=== PATIENT | female | born 1980 | race Two or more races ===

== ENCOUNTER 2019-08-23 06:44 | Emergency (ER) | payer OTHER, MEDICAID, SELFPAY ==
[2019-08-23] VITALS (8 sets, daily range): BP systolic 118–178; BP diastolic 75–103; PULSE 83–107; RESP 14–22; TEMP 36.4; O2SAT 98–100
--- NOTE | ~2019-08-23 | XR_ITS ---
EXAMINATION: XR chest 2V DATE: 08/23/2019 07:46 INDICATION: Chest pain. Shortness of breath. TECHNIQUE: Frontal and lateral views of the chest were obtained. COMPARISON: Chest 2 views 08/20/2017, CT abdomen and pelvis 02/02/2016 FINDINGS: There is no pneumonia, pleural effusion, or pneumothorax. The heart size is normal. IMPRESSION: 1. No acute cardiopulmonary disease. Reviewed, dictated and finalized at location A. YPOP MACHINE OPERATOR
--- NOTE | 2019-08-23 07:04 | ECG_ITS ---
Measurements Intervals [place] Rate: 88 P: 73 IN: 170 QRS: 48 QRSD: 91 T: 37 QT: 352 QTc: 427 Interpretive Statements SINUS RHYTHM NORMAL ECG Electronically Signed On 08-23-2019 11:14:07 INDUSTRIAL TECHNOLOGIST by Jl HAAS
--- NOTE | 2019-08-23 07:09 | PC.NURSE ---
Took report by STEVE Sierra, assumed pt care at this time.
--- NOTE | 2019-08-23 07:29 | ED.CHESTPAIN ---
HPI - Chest Pain General Chief Complaint: Chest Pain Stated Complaint: chest pressure/high bp Time Seen by Provider: 08/23/19 06:55 History of Present Illness HPI narrative: Patient is a 38-year-old female who presents to the emergency department with complaint of chest pain. Patient states she awoke at approximately 530 this morning. Patient noted pounding frontal headache, heart racing, and tightness in her chest. Patient took her blood pressure at home and it was 185/110. Patient has been off of her antihypertensive for approximately 1 week. Patient did take her blood pressure medication this morning due to her symptoms and elevated blood pressure. Patient denies any fever, chills, or sweats. She reports chronic nasal and sinus congestion. She does report nausea over the last couple of days but denies any vomiting or diarrhea. Patient denies any cough. Patient's last normal menstrual period was 07/12/2019. Patient reports urinary frequency but denies any dysuria. Patient states she took a test at home that was negative. complaint: chest pain Onset (ago): hour(s) Timing of current episode: constant and still present Onset: during rest Pain location: substernal Quality: tightness Associated symptoms: nausea and palpitations Related Data Home Medications Medication Instructions Recorded Confirmed cetirizine [Zyrtec] 10 mg PO DAILY 06/05/19 06/16/19 cholecalciferol (vitamin D3) 1,000 unit PO DAILY 06/05/19 06/16/19 [Vitamin D3] lamotrigine 150 mg PO BID 06/05/19 06/16/19 Allergies Allergy/AdvReac Type Severity Reaction Status Date / Time iodine AdvReac Intermediate sneezing Verified 08/23/19 07:18 Contrast Media AdvReac Mild SNEEZING Uncoded 08/23/19 07:18 Review of Systems Review of Systems: All systems reviewed & are unremarkable except as noted in HPI and below Constitutional: Constitutional: Denies chills and Denies fever(s) Cardiovascular: Cardiovascular: Reports chest pain and Reports rapid heart rate Respiratory: Respiratory: Denies cough Gastrointestinal: Gastrointestinal: Denies diarrhea, Reports nausea and Denies vomiting Genitourinary: Genitourinary: Reports abnormal menses, Reports nocturia and Denies dysuria [facility] Past Medical History Medical History (Updated 08/23/19 @ 11:10 by Lynda Silva MD) Arthritis Chronic back pain Chronic headaches Depression Diverticulitis Diverticulosis Gallbladder disease GERD (gastroesophageal reflux disease) Hemorrhoids Hypertension Ovarian cyst Seizures Sleep apnea Uterine fibroid Surgical History Surgical History (Updated 06/05/19 @ 10:22 by CHASITY Devine) H/O dilation and curettage H/O vein stripping History of appendectomy Hx of cholecystectomy Previous section Social History Social History (Updated 06/05/19 @ 10:22 by CHASITY Devine) Second hand tobacco smoke exposure: Yes Gender identity (if verbalized by the patient): Female Exam Const: General: cooperative, no acute distress and alert Nutritional Appearance: obese Orientation/consciousness: patient oriented x3 Limitations: no limitations HENMT: Mouth: Yes lip normal and Yes moist mucous membranes Resp: Effort & Inspection: normal respiratory effort Auscultation: clear to auscultation bilaterally Cardio: Rate: tachycardic Rhythm: regular rhythm GI: GI Palp: Yes Soft to palpation and No Tenderness to palpation present (GI) Auscultation: normal bowel sounds Skin: General skin exam: normal color Neuro: General: patient oriented x3 Cognition (Neuro): normal cognition Speech: normal speech Extrem: General: normal to inspection, full ROM and no clubbing, cyanosis or edema Psych: Mental Status: mental status grossly normal Affect: Anxious affect present Attitude: cooperative Course Course Emergency Course: Patient with low risk heart score, negative troponin x2, and unremarkable EKG. Patient feeling better after [employer]
[2019-08-23 07:42] LABS: Basophils Absolute Auto 0.1 K/mm3 (0.0-0.1); Basophils Percent Auto 0.7 % (0.2-1.2); Eosinophils Absolute Auto 0.3 K/mm3 (0-0.3); Eosinophils Percent Auto 4.6 % (0-4.4); Hematocrit 40.3 % (37.0-47.0); Hemoglobin 13.4 g/dL (12.0-15.0); Immature Granulocyte Absolute 0.02 K/mm3 (0.00-0.031); Immature Granulocyte Percent A 0.3 % (0-0.5); Lymphocytes Absolute Auto 1.88 K/mm3 (0.9-3.2); Mean Corpuscular HGB Conc 33.3 g/dl (32-36); Mean Corpuscular Hemoglobin 29.6 pg (26-34); Mean Corpuscular Volume 89.2 fl (80-100); Mean Platelet Volume 9.3 fl (7.4-10.4); Monocytes Absolute Auto 0.5 K/mm3 (0.1-0.6); Monocytes Percent Auto 6.5 % (2.6-8.5); Neutrophils Absolute Auto 4.2 K/mm3 (1.3-6.7); Neutrophils Percent Auto 60.9 % (45.5-73.1); Platelet Count Result 311 k/mm3 (150-375); Red Blood Count 4.52 M/mm3 (4.2-5.4); Red Cell Distribution Width 12.5 % (11.5-14.5)
[2019-08-23] MEDS: LORAZEPAM INJ 2 MG/ML VIAL 1 MG IV PUSH (07:44)
[2019-08-23 07:53] LABS: Alanine Aminotransferase 28 U/L (4-35); Albumin Level 4.6 g/dL (3.5-5.1); Alkaline Phosphatase 134 U/L (38-126); Aspartate Amino Transferase 31 U/L (14-36); Bilirubin,Total 0.5 mg/dL (0.2-1.3); Blood Urea Nitrogen 10 mg/dL (7-17); Calcium 9.4 mg/dL (8.4-10.2); Carbon Dioxide 30 mmol/L (22-30); Chloride 96 mmol/L (98-107); Estimated Glomerular Filt Rate > 60; Glucose 102 mg/dL (65-105); Sodium 136 mmol/L (137-145)
[2019-08-23 07:57] LABS: D Dimer 0.29 ug/mL (<0.48)
[2019-08-23 08:04] LABS: Troponin I < 0.012 ng/mL (0.000-0.034)
[2019-08-23 08:08] LABS: Magnesium 1.9 mg/dL (1.6-2.3)
--- NOTE | 2019-08-23 09:43 | PC.NURSE ---
Pt states that her head is begining to hurt, ERP Suzieacher informed, states that she will place order for pain medication, awaiting order. RN at bedside updated pt, provided pillow and blanket.
[2019-08-23 10:38] LABS: Add Urine Microscopic? YES; Appearance Urine Cloudy (Clear); Bacteria Urine Trace /hpf; Bilirubin Urine Negative (Negative); Blood Urine Negative (Negative); Color Urine Yellow (Yellow); Glucose Urine UA Negative (Negative); Ketones Urine Negative (Negative); Leukocyte Esterase Ur Trace LEU/UL (Negative); Mucus Urine Rare /lpf; Nitrate Urine Negative (Negative); Protein Urine Negative (Negative); RBC Urine 0-2 /hpf (0-2); Specific Grav Ur 1.017 (1.001-1.035); Squamous Epithelial Cell Urine Many /hpf (Few); Urobilinogen Urine Negative mg/dL (<2.0); WBC Urine 0-3 /hpf
[2019-08-23] MEDS: KETOROLAC 30 MG/ML VIAL (*BKC) IV PUSH (10:50)
[2019-08-23 10:56] LABS: Troponin I < 0.012 ng/mL (0.000-0.034)
== END 2019-08-23 11:18 | disposition home or self-care (01) ==
PROVIDERS: Emergency Provider Emergency Medicine; PCP Emergency Medicine
DX: R07.9 Chest pain, unspecified (principal); M19.90 Unspecified osteoarthritis, unspecified site; F32.9 Major depressive disorder, single episode, unspecified; K57.90 Diverticulosis of intestine, part unspecified, without perforation or abscess without bleeding; K21.9 Gastro-esophageal reflux disease without esophagitis; I10 Essential (primary) hypertension; G40.909 Epilepsy, unspecified, not intractable, without status epilepticus; G47.30 Sleep apnea, unspecified
CPT/HCPCS: 36415; 71046; 80053; 81001; 81025; 83735; 84443; 84484; 85025; 85380; 87804; 93005; 96374; 96375; 99284; J1885; J2060

== ENCOUNTER 2019-12-09 09:40 | Emergency (ER) | payer OTHER, MEDICAID, SELFPAY ==
--- NOTE | ~2019-12-09 | US_ITS ---
US pelvic complete w TV DATE: 12/09/2019 11:02 INDICATION: Pelvic severe pain for 4 days TECHNIQUE: Real-time imaging via transabdominal and transvaginal approaches COMPARISON: 02/26/2019 obstetrical ultrasound FINDINGS: The uterus measures approximately 8.5 cm height, 4.5 cm anteroposterior dimension. The cent ral endometrial echo complex measures up to approximately 8 mm anteroposterior dimension. Small uteri ne cervical nabothian cysts are noted, measuring up to 3 mm. The right ovary measures 2.4 x 2.7 x 1.6 cm, with vascular flow demonstrated on Doppler and color barney w imaging. The left ovary is not visualized. No pelvic mass or abnormal pelvic fluid collection is evident. IMPRESSION: Left ovary is not visualized No pelvic mass or abnormal pelvic fluid collection is evident Reviewed, dictated and finalized at Location A. Reviewed, dictated and finalized at location A.
--- NOTE | ~2019-12-09 | CT_ITS ---
EXAMINATION: CT abdomen pelvis wo con DATE: 12/09/2019 13:20 INDICATION: Lower abdominal and pelvic pain TECHNIQUE: Computed tomography (CT) of the abdomen and pelvis was performed without intravenous contr ast. Automated exposure control and iterative reconstruction technique were employed. Exam dose: 107 0.18 mGy-cm total exam DLP. COMPARISON: 02/02/2016 CT abdomen pelvis FINDINGS: The lung bases are clear. Normal heart size. No pericardial or pleural effusion. Status post cholecystectomy. No hepatic, splenic, pancreatic, and adrenal or renal space-occupying ma ss lesion is evident on this limited noncontrast examination. Normal caliber of the abdominal aorta. No intraperitoneal or retroperitoneal or pelvic mass lesion or adenopathy or ascites. The urinary bladder is unremarkable. Uterus and adnexal areas are unremarkable. There are numerous diverticula of the sigmoid and descending colon and to a lesser extent the right c olon, primarily in the hepatic flexure area. No bowel obstruction is evident. However, there is peric olic stranding in the proximal sigmoid area and mild pericholecystic fluid collection, consistent wit h sigmoid diverticulitis. Included skeletal structures are unremarkable. IMPRESSION: Sigmoid: Diverticulitis; no abscess or intraperitoneal free air Status post cholecystectomy Reviewed, dictated and finalized at Location [facility]. Reviewed, dictated and finalized at location A.
[2019-12-09 09:42] VITALS: BP 159/69; PULSE 85; RESP 18; TEMP 36.6; O2SAT 100
[2019-12-09 10:19] LABS: Add Urine Microscopic? YES; Appearance Urine Clear (Clear); Bilirubin Urine Negative (Negative); Blood Urine Negative (Negative); Color Urine Yellow (Yellow); Glucose Urine UA Negative (Negative); Ketones Urine Negative (Negative); Leukocyte Esterase Ur Negative LEU/UL (Negative); Mucus Urine Rare /lpf; Nitrate Urine Negative (Negative); Protein Urine Negative (Negative); RBC Urine 0-2 /hpf (0-2); Specific Grav Ur 1.023 (1.001-1.035); Squamous Epithelial Cell Urine Few /hpf (Few); Urobilinogen Urine Negative mg/dL (<2.0); WBC Urine 0-3 /hpf
--- NOTE | 2019-12-09 10:26 | ED.GENADULT ---
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 Patient reports constant pelvic pain that intermittently worsens. She describes her pain has cramping like a contraction. She has been taking tylenol for her pain without relief. She reports pressure when she urinates but she denies burning or dysuria. She denies abnormal vaginal discharge or bleeding. Her current pain is rated 7/10. complaint: pelvic pain Onset (ago): day(s) (4) Location: pelvis Radiation: non-radiation Quality: other (cramping) Pain Consistency: intermittent Exacerbating factors: movement Related Data Home Medications Medication Instructions Recorded Confirmed escitalopram oxalate 10 mg PO 12/09/19 irbesartan 150 mg PO 12/09/19 lamotrigine 150 mg PO 12/09/19 Allergies Allergy/AdvReac Type Severity Reaction Status Date / Time iodine AdvReac Intermediate sneezing Verified 12/09/19 09:45 Contrast Media AdvReac Mild SNEEZING Uncoded 12/09/19 09:45 Review of Systems Review of Systems: All systems reviewed & are unremarkable except as noted in HPI and below Constitutional: Constitutional: Denies chills and Denies fever(s) Gastrointestinal: Gastrointestinal: Reports abdominal pain, Denies diarrhea, Reports nausea and Denies vomiting Genitourinary: Genitourinary: Denies abnormal vaginal bleeding, Denies hematuria, Denies nocturia, Denies dysuria, Reports pelvic pain, Denies flank pain, Denies urinary incontinence and Denies vaginal discharge Musculoskeletal: Musculoskeletal: Denies back pain [facility] Past Medical History Medical History (Updated 12/09/19 @ 13:47 by Marcia Collins MD) Arthritis Chronic back pain Chronic headaches Depression Diverticulitis Diverticulosis Gallbladder disease GERD (gastroesophageal reflux disease) Hemorrhoids Hypertension Ovarian cyst Seizures Sleep apnea Uterine fibroid Surgical History Surgical History (Updated 06/05/19 @ 10:22 by CHASITY Devine) H/O dilation and curettage H/O vein stripping History of appendectomy Hx of cholecystectomy Previous section Social History Social History (Updated 06/05/19 @ 10:22 by CHASITY Devine) Second hand tobacco smoke exposure: Yes Gender identity (if verbalized by the patient): Female Exam Narrative: Exam Narrative: GENERAL: Well-appearing, well-nourished, and in no acute distress. obese HEAD: Normocephalic, atraumatic EYES: PERRLA and EOMI, conjunctiva clear without discharge THROAT:Mucous membranes moist, Oropharynx normal without erythema, exudate, peritonsillar swelling or fluctuance NECK: Supple, without lymphadenopathy or mass RESPIRATORY: No respiratory distress, Airway patent, Respirations non-labored, Clear to auscultation without rales, rhonchi or wheeze HEART: Regular rate and rhythm. No murmur heard. Normal peripheral pulses. ABDOMEN: Soft, suprapubic pain, nondistended, normal active bowel sounds. No masses. No rebound . There is voluntary guarding to suprapubic EXTREMITIES: No edema, normal strength with full range of motion. SKIN: Warm, dry, normal color without rash NEURO: Alert and oriented x3. CN 2-12 grossly intact. No focal deficits. PSYCH: Normal mood and affect. : Speculum Exam - Cervix: normal appearance of the cervix, Cervical os closed and nontender Course Reevaluation(s) Reevaluation #1: Patient states her pain is improved. I Discussed her pain is due to diverticulitis. She will be discharged with antibiotics and she will follow up with PCP Date: 12/09/19 Time: 13:45 Vital Signs Vital signs: Vital Signs Temperature 97.9 F 12/09/19 09:42 Pulse Rate 85 12/09/19 09:42 Respiratory Rate 18 12/09/19 09:42 Blood P
[2019-12-09] MEDS: KETOROLAC 30 MG/ML VIAL (*BKC) IV PUSH (10:30)
[2019-12-09 10:46] LABS: Basophils Absolute Auto 0.1 K/mm3 (0.0-0.1); Basophils Percent Auto 0.5 % (0.2-1.2); Eosinophils Absolute Auto 0.3 K/mm3 (0-0.3); Eosinophils Percent Auto 2.7 % (0-4.4); Hemoglobin 12.9 g/dL (12.0-15.0); Immature Granulocyte Absolute 0.01 K/mm3 (0.00-0.031); Immature Granulocyte Percent A 0.1 % (0-0.5); Lymphocytes Absolute Auto 1.63 K/mm3 (0.9-3.2); Lymphocytes Percent Auto 16.4 % (18.3-44.2); Mean Corpuscular HGB Conc 33.9 g/dl (32-36); Mean Corpuscular Hemoglobin 30.7 pg (26-34); Mean Corpuscular Volume 90.5 fl (80-100); Mean Platelet Volume 9.5 fl (7.4-10.4); Monocytes Absolute Auto 0.5 K/mm3 (0.1-0.6); Monocytes Percent Auto 5.2 % (2.6-8.5); Neutrophils Absolute Auto 7.5 K/mm3 (1.3-6.7); Neutrophils Percent Auto 75.1 % (45.5-73.1); Platelet Count Result 295 k/mm3 (150-375); Red Cell Distribution Width 12.4 % (11.5-14.5)
[2019-12-09 11:39] LABS: Alanine Aminotransferase 20 U/L (4-35); Albumin Level 4.6 g/dL (3.5-5.1); Alkaline Phosphatase 125 U/L (38-126); Aspartate Amino Transferase 27 U/L (14-36); Bilirubin,Total 0.5 mg/dL (0.2-1.3); Blood Urea Nitrogen 9 mg/dL (7-17); Calcium 9.3 mg/dL (8.4-10.2); Carbon Dioxide 29 mmol/L (22-30); Estimated CRCL calculation 136 ml/min; Estimated Glomerular Filt Rate > 60; Glucose 110 mg/dL (65-105); Potassium 4.3 mmol/L (3.4-5.0); Sodium 138 mmol/L (137-145)
[2019-12-09 12:40] LABS: Chloride 102 mmol/L (98-107)
[2019-12-09 12:59] VITALS: BP 115/69; PULSE 84; RESP 16; TEMP 37.1; O2SAT 100
--- NOTE | 2019-12-09 13:13 | PC.NURSE ---
Patient to CT at this time.
[2019-12-09 14:05] VITALS: BP 125/82; PULSE 90; RESP 16; O2SAT 99
== END 2019-12-09 14:05 | disposition home or self-care (01) ==
PROVIDERS: Emergency Provider General Practice; PCP Emergency Medicine
DX: K57.32 Diverticulitis of large intestine without perforation or abscess without bleeding (principal); M19.90 Unspecified osteoarthritis, unspecified site; F32.9 Major depressive disorder, single episode, unspecified; K21.9 Gastro-esophageal reflux disease without esophagitis; I10 Essential (primary) hypertension; G47.30 Sleep apnea, unspecified; Z77.22 Contact with and (suspected) exposure to environmental tobacco smoke (acute) (chronic)
CPT/HCPCS: 36415; 74176; 76830; 76856; 80053; 81001; 81025; 85025; 87070; 87491; 87591; 87808; 96374; 99284; J1885

== ENCOUNTER 2020-01-07 10:33 | Outpatient (CLI) | payer OTHER, MEDICAID, SELFPAY ==
--- NOTE | ~2020-01-07 | MM_ITS ---
EXAMINATION: MM screening [place] BI w milo HISTORY: Screening mammogram TECHNIQUE: Craniocaudal and mediolateral oblique 3-D tomosynthesis images were obtained and synthetic 2-D images were generated. CAD analysis was submitted and interpreted. COMPARISON: None, baseline BREAST PARENCHYMAL COMPOSITION: There are scattered areas of fibroglandular density. FINDINGS: RIGHT BREAST: Focal asymmetry is present in the middle third of the upper outer quadrant of the breas t 6.5 cm from the nipple. LEFT BREAST: There is a 3 mm low density mass in the anterior third of the outer breast best apprecia jovan 3 cm from the nipple on the craniocaudal view. IMPRESSION: 1. Bilateral breast findings as described above. 2. Additional mammographic views and possible breast ultrasound are recommended to evaluate for malig loraine and establish a baseline given that this is the first mammographic examination. BI-RADS Category 0: Incomplete: Needs additional imaging evaluation. Reviewed, dictated and finalized at location A. IMPRESSION: 1. Bilateral breast findings as described above. 2. Additional mammographic views and possible breast ultrasound are recommended to evaluate for malignancy and establish a baseline given that this is the fir st mammographic examination. BI-RADS Category 0: Incomplete: Needs additional imaging evaluation.
== END 2020-01-07 10:34 | disposition home or self-care (01) ==
LOC: ANHIMG 10:37
PROVIDERS: PCP Emergency Medicine; Visit Provider Nurse Practitioner Obstetrics & Gynecology
DX: Z12.31 Encounter for screening mammogram for malignant neoplasm of breast (principal); R92.8 Other abnormal and inconclusive findings on diagnostic imaging of breast
CPT/HCPCS: 77063; 77067

== ENCOUNTER 2020-02-18 11:20 | Outpatient (CLI) | payer OTHER, MEDICAID, SELFPAY ==
--- NOTE | ~2020-02-18 | MMUS_ITS ---
EXAMINATION: MM diagnostic mammo BI, US breast BI limited HISTORY: Focal asymmetry reported in middle third of upper outer quadrant of right breast 6.5 cm from nipple and 3 mm low-density mass in the anterior third of the outer left breast 3 cm from nipple on craniocaudal view. TECHNIQUE: Additional 3-D tomosynthesis images of both breasts were performed and synthetic 2-D image s were generated. Bilateral rolled medial and rolled lateral craniocaudal views. CAD analysis was sub mitted and interpreted. High resolution bilateral upper outer quadrant breast ultrasound was performe d. COMPARISON: 01/07/2020 bilateral digital screening mammogram FINDINGS: MAMMOGRAPHIC FINDINGS: There is some asymmetry of the fibroglandular stroma in the upper outer quadrants. No definite reprod ucible mass is noted. ULTRASOUND: Right breast: 10:00 6 cm from nipple: 4 mm cyst Left breast: 3:00 6 cm from nipple: Parallel circumscribed hypoechoic 2 x 4 mm hypoechoic lesion without internal vascularity or suspicious shadowing. There is some through-transmission. This is likely a small mildl y complicated cyst. IMPRESSION: 1. No mammographic evidence of malignancy 2. Routine mammographic screening is recommended. BI-RADS Category 2: Benign finding(s). Reviewed, dictated and finalized at location A. IMPRESSION: 1. No mammographic evidence of malignancy 2. Routine mammographic screening is recommended. BI-RADS Category 2: Benign finding(s).
== END 2020-02-18 11:21 | disposition home or self-care (01) ==
LOC: ANHIMG 11:22
PROVIDERS: PCP Family Medicine; Visit Provider Nurse Practitioner Family
DX: R92.8 Other abnormal and inconclusive findings on diagnostic imaging of breast (principal)
CPT/HCPCS: 76642; 77066

== ENCOUNTER 2020-08-25 12:00 | Emergency (ER) | payer OTHER, MEDICAID, SELFPAY ==
--- NOTE | ~2020-08-25 | CT_ITS ---
EXAMINATION: CT abdomen pelvis w con EXAM DATE: 08/25/2020 14:56 INDICATION: Low abdominal pain. TECHNIQUE: Spiral CT of the abdomen and pelvis was performed following intravenous injection of 100 m L Omnipaque 350. Axial, coronal and sagittal images were reviewed. The dose-length product (DLP) fo r this examination was 1048.00 mGy-cm. The exposure was tailored according to patient size (auto mA exposure control), and iterative reconstruction (ASIR) was used as additional dose reduction techniqu e. Comparison is made to prior examination from 12/09/2019. FINDINGS: The liver, spleen, adrenal glands and pancreas are unremarkable. Gallbladder not identifie d, patient likely has had cholecystectomy. Portal and splenic veins are patent. Kidneys enhance sym metrically. There is no hydronephrosis. There is IUD which appears to be centrally located within the endometrium, expected position. The bladder is unremarkable. There is no retroperitoneal or pel david lymphadenopathy. Small umbilical fat-containing hernia. Probable appendectomy. There is moderate to severe descending colonic diverticulosis with mild fat st randing surrounding a single diverticula at the descending/sigmoid junction, acute uncomplicated dive rticulitis. The stomach and small bowel are unremarkable. There is expected amount of colonic stool. No free intraperitoneal gas. The heart is normal in size. There are no pericardial or pleural e ffusions. The lung bases are unremarkable. There are no osteoblastic or osteolytic lesions identifi ed. IMPRESSION: Acute uncomplicated descending/sigmoid colonic diverticulitis. Reviewed, dictated and finalized at location B. O GAME [employer]ATOR
[2020-08-25 12:02] VITALS: BP 145/90; PULSE 90; RESP 18; TEMP 36.2; O2SAT 100
[2020-08-25 12:19] LABS: Basophils Absolute Auto 0.1 K/mm3 (0.0-0.1); Basophils Percent Auto 0.5 % (0.2-1.2); Eosinophils Absolute Auto 0.3 K/mm3 (0-0.3); Eosinophils Percent Auto 2.6 % (0-4.4); Hematocrit 37.6 % (37.0-47.0); Hemoglobin 12.7 g/dL (12.0-15.0); Immature Granulocyte Absolute 0.02 K/mm3 (0.00-0.031); Immature Granulocyte Percent A 0.2 % (0-0.5); Lymphocytes Absolute Auto 2.43 K/mm3 (0.9-3.2); Lymphocytes Percent Auto 20.5 % (18.3-44.2); Mean Corpuscular HGB Conc 33.8 g/dl (32-36); Mean Corpuscular Hemoglobin 30.5 pg (26-34); Mean Corpuscular Volume 90.2 fl (80-100); Mean Platelet Volume 9.1 fl (7.4-10.4); Monocytes Absolute Auto 0.6 K/mm3 (0.1-0.6); Monocytes Percent Auto 4.6 % (2.6-8.5); Neutrophils Absolute Auto 8.5 K/mm3 (1.3-6.7); Neutrophils Percent Auto 71.6 % (45.5-73.1); Platelet Count Result 304 k/mm3 (150-375); Red Blood Count 4.17 M/mm3 (4.2-5.4); Red Cell Distribution Width 12.4 % (11.5-14.5); White Blood Count 11.9 K/mm3 (4.5-10.0)
--- NOTE | 2020-08-25 12:30 | PC.NURSE ---
PT STATES UNABLE TO VOID AT THIS TIME. STATES WILL ATTEMPT AGAIN LATER.
[2020-08-25 12:31] LABS: Alanine Aminotransferase 25 U/L (4-35); Albumin Level 4.6 g/dL (3.5-5.1); Alkaline Phosphatase 112 U/L (38-126); Anion Gap 6 mmol/L (8-16); Aspartate Amino Transferase 33 U/L (14-36); Bilirubin,Total 0.5 mg/dL (0.2-1.3); Blood Urea Nitrogen 15 mg/dL (7-17); Carbon Dioxide 29 mmol/L (22-30); Chloride 103 mmol/L (98-107); Estimated CRCL calculation 118 ml/min; Estimated Glomerular Filt Rate > 60; Glucose 104 mg/dL (65-105); Lipase 57 U/L (23-300); Potassium 3.9 mmol/L (3.4-5.0); Sodium 138 mmol/L (137-145)
[2020-08-25] MEDS: diphenhydrAMINE HCl INJ 50 MG/ML VIAL 25 MG IV PUSH (13:40)
[2020-08-25] MEDS: methylPREDNISolone SOD SUCC 125 MG VIAL IV PUSH (13:40)
[2020-08-25 14:31] LABS: Add Urine Microscopic? NO; Appearance Urine Clear (Clear); Bilirubin Urine Negative (Negative); Blood Urine Negative (Negative); Color Urine Yellow (Yellow); Glucose Urine UA Negative (Negative); Ketones Urine Negative (Negative); Leukocyte Esterase Ur Negative LEU/UL (Negative); Mucus Urine Rare /lpf; Nitrate Urine Negative (Negative); Protein Urine Negative (Negative); RBC Urine 0-2 /hpf (0-2); Specific Grav Ur 1.016 (1.001-1.035); Squamous Epithelial Cell Urine Many /hpf (Few); Urobilinogen Urine Negative mg/dL (<2.0); WBC Urine 0-3 /hpf
[2020-08-25 15:39] VITALS: BP 121/79; PULSE 93; RESP 20; O2SAT 100
[2020-08-25] MEDS: HYDROcodone/acetaminophen (*CRX) 5-325 MG TABLET 1 TAB PO (15:58)
[2020-08-25 16:15] VITALS: BP 121/79; PULSE 90; RESP 20; O2SAT 99
--- NOTE | 2020-08-25 18:01 | ED.ABDPAIN ---
HPI - Abdominal Pain General Chief Complaint: Abdominal Pain Stated Complaint: ABD PAIN X1D Time Seen by Provider: 08/25/20 12:15 Source: patient Mode of arrival: ambulatory Limitations: no limitations History of Present Illness HPI narrative: Patient presents with chief complaint of lower abdominal pain that began yesterday. Patient states that approximately 6 months ago she had a flare of diverticulitis they felt similarly so she presented to the emergency department for treatment so that her symptoms were to worsen. Patient states she has had some nausea but she denies vomiting or diarrhea. Patient denies any changes to her bowels or urination. Patient states that she has sneezing and coughing with iodine but she was pretreated before her last CT it did not have any adverse side effects. Patient states her last bout of diverticulitis resolved without complications. Related Data Home Medications Medication Instructions Recorded Confirmed lamotrigine 150 mg PO 12/09/19 01/20/20 Allergies Allergy/AdvReac Type Severity Reaction Status Date / Time shrimp Allergy unknown Verified 08/25/20 12:06 iodine AdvReac Intermediate sneezing Verified 08/25/20 12:06 irbesartan AdvReac hair loss Verified 08/25/20 12:06 Contrast Media AdvReac Mild SNEEZING Uncoded 03/10/20 13:13 Review of Systems Review of Systems: Narrative: CONSTITUTIONAL: Denies fever, chills, or sweats. EYES: Denies visual changes, redness, or discharge. ENT: Denies rhinorrhea, congestion, sore throat, or otalgia. CARDIOVASCULAR: Denies chest pain, palpitations, or edema. RESPIRATORY: Denies cough or dyspnea. GASTROINTESTINAL: Reports lower abdominal pain, nausea, denies vomiting, or diarrhea. GENITOURINARY: Denies dysuria or hematuria. SKIN: Denies rash or itching. MUSCULOSKELETAL: Denies back pain, joint pain, or myalgia. NEUROLOGIC: Denies headache, numbness, dizziness, or weakness. PSYCHIATRIC: Denies anxiety or depression. [facility] Past Medical History Medical History (Updated 08/25/20 @ 15:45 by Francisca Montague PA-C) Arthritis Chronic back pain Chronic headaches Depression Diverticulitis Diverticulosis Gallbladder disease GERD (gastroesophageal reflux disease) Hemorrhoids Hypertension Ovarian cyst Seizures Sleep apnea Uterine fibroid Surgical History Surgical History H/O dilation and curettage H/O vein stripping History of appendectomy Hx of cholecystectomy Previous section Social History Social History Smoking status: Former smoker Second hand tobacco smoke exposure: Yes Alcohol intake: current Substance use: never Substance use type: does not use Gender identity (if verbalized by the patient): Female Exam Narrative: Exam Narrative: GENERAL: Well-appearing, well-nourished, and in no acute distress. Obese. HEAD: Normocephalic, atraumatic. EYES: PERRLA and EOMI. NECK: Supple. No adenopathy or masses. CHEST: Clear to auscultation. No respiratory distress. No wheezes rales or rhonchi HEART: Regular rate and rhythm. ABDOMEN: Soft, mildly tender diffusely in the lower quadrant of the abdomen, nondistended, normal active bowel sounds. EXTREMITIES: Normal range of motion. No edema. SKIN: Warm, dry, no rash. NEURO: No focal deficits. Alert and oriented x3. PSYCH: Normal mood and affect. Course Vital Signs Vital signs: Vital Signs Temperature 97.1 F L 08/25/20 12:02 Pulse Rate 90 08/25/20 12:02 Respiratory Rate 18 08/25/20 12:02 Blood Pressure 145/90 H 08/25/20 12:02 Pulse Oximetry 100 08/25/20 12:02 Temperature 97.1 F L 08/25/20 12:02 Pulse Rate 90 08/25/20 16:15 Respiratory Rate 20 08/25/20 16:15 Blood Pressure 121/79 08/25/20 16:15 Pulse Oximetry 99 08/25/20 16:15 MDM - Abdominal Pain MDM Narrative Medical decision making narrative: Patient has noncomplicated diverticul
== END 2020-08-25 16:39 | disposition home or self-care (01) ==
PROVIDERS: Emergency Provider Emergency Medicine; PCP Family Medicine
DX: K57.32 Diverticulitis of large intestine without perforation or abscess without bleeding (principal); M19.90 Unspecified osteoarthritis, unspecified site; K21.9 Gastro-esophageal reflux disease without esophagitis; I10 Essential (primary) hypertension; G47.30 Sleep apnea, unspecified; Z87.891 Personal history of nicotine dependence
CPT/HCPCS: 36415; 74177; 80053; 81003; 81025; 83690; 85025; 96374; 96375; 99284; A9270; J1200; J2930; Q9967

== ENCOUNTER 2021-01-01 08:39 | Outpatient (CLI) | payer OTHER, MEDICAID, SELFPAY ==
--- NOTE | 2021-01-02 10:52 | WPDNEUROLOGY ---
Neurology EEG Report EEG DESCRIPTION Basic resting occipital frequency consists of medium voltage 8 to 10 hertz per 2nd alpha activity. During drowsiness low-voltage beta activity seen diffusely admixed with waxing and waning posterior alpha rhythm. Bilateral symmetrical sleep activity seen during sleep with occasional EKG artifact. Hyperventilation not done. Photic stimulation produced normal drive. Non paroxysmal. Nonfocal. Nonlateralizing. IMPRESSION Normal recall
== END 2021-01-01 08:40 | disposition home or self-care (01) ==
PROVIDERS: PCP Family Medicine; Visit Provider Psychiatry & Neurology Neurology
DX: R55 Syncope and collapse (principal); R56.9 Unspecified convulsions
CPT/HCPCS: 95816

== ENCOUNTER 2021-01-02 16:27 | Outpatient (CLI) | payer OTHER, MEDICAID, SELFPAY ==
--- NOTE | ~2021-01-02 | MR_ITS ---
EXAMINATION: MR brain/brain stem wo con DATE: 01/02/2021 17:11 INDICATION: Amnesia. Alcohol poisoning. TECHNIQUE: Magnetic resonance imaging (MRI) of the brain and brainstem was performed without intraven ous contrast. Sequences included sagittal and axial T1-weighted SE, axial diffusion-weighted FS SE, a xial T2*-weighted GRE, axial T2-weighted FLAIR Propeller, and axial T2-weighted Propeller. Apparent d iffusion coefficient (ADC) maps were created. COMPARISON: MRI dated 02/19/2016. FINDINGS: Mild generalized atrophy. No acute intracranial hemorrhage, infarction, mass or mass effect . No ventriculomegaly or midline shift. Structures of the posterior fossa including 7/8th cranial ner ve complexes are unremarkable. Orbits are symmetric without disconjugate gaze. No significant abnorma lity of the paranasal sinuses. IMPRESSION: 1. No acute intracranial abnormality. 2: Cerebral atrophy, accelerated for age. Reviewed, dictated and finalized at location A.
== END 2021-01-02 16:28 | disposition home or self-care (01) ==
PROVIDERS: PCP Family Medicine; Visit Provider Psychiatry & Neurology Neurology
DX: R41.3 Other amnesia (principal); G31.89 Other specified degenerative diseases of nervous system
CPT/HCPCS: 70551

== ENCOUNTER 2021-02-09 09:33 | Outpatient (CLI) | payer OTHER, MEDICAID, SELFPAY ==
--- NOTE | ~2021-02-09 | MM_ITS ---
EXAMINATION: MM screening [place] BI w milo HISTORY: Screening TECHNIQUE: Craniocaudal and mediolateral oblique 3-D tomosynthesis images were obtained and synthetic 2-D images were generated. CAD analysis was submitted and interpreted. COMPARISON: Comparison to multiple prior studies sequentially, with oldest reviewed study dated 01/06. BREAST PARENCHYMAL COMPOSITION: There are scattered areas of fibroglandular density. FINDINGS: There is no evidence of suspicious mass, calcification, or architectural distortion to sugg est malignancy in either breast. There has been no suspicious interval change. IMPRESSION: 1. No mammographic evidence of malignancy. 2. Recommend routine screening mammography in one year. BI-RADS Category 1: Negative Reviewed, dictated and finalized at location A.
== END 2021-02-09 09:34 | disposition home or self-care (01) ==
LOC: ANHIMG 09:36
PROVIDERS: PCP Family Medicine; Visit Provider Nurse Practitioner Obstetrics & Gynecology
DX: Z12.31 Encounter for screening mammogram for malignant neoplasm of breast (principal)
CPT/HCPCS: 77063; 77067

== ENCOUNTER 2021-03-10 13:34 | Emergency (ER) | payer OTHER, MEDICAID, SELFPAY ==
[2021-03-10 13:43] VITALS: BP 132/92; PULSE 100; RESP 18; TEMP 37.1; O2SAT 100
--- NOTE | 2021-03-10 14:23 | ED.GENADULT ---
HPI - General Adult General Chief complaint: Upper Respiratory Infection Stated complaint: cough/congestion/ear ache Time Seen by Provider: 03/10/21 14:24 Source: patient and RN notes reviewed Mode of arrival: ambulatory Limitations: no limitations History of Present Illness HPI narrative: 40-year-old (-Swedish and ) female presents with complaints of upper respiratory infection, otalgia, some facial congestion, facial pressure, and body aches for the past 2 days. ?Devi reports increase URI symptoms, facial pressure and coughing throughout the night and day. Tylenol last took on 03/09/21 and honey without relief. ?Ill exposures. No facial swelling.? Coughing without chest congestion. Nasal congestion and rhinorrhea. ?No sore throat. No high fevers, drooling, neck or throat swelling. ?No voice change. ?No nausea, vomiting, or abdominal pain. ?Tolerating liquids well. ?Denies chills, dyspnea, difficulty swallowing, foreign body sensation, and rash. ?No chest pain or shortness of breath. LMP 2 months ago, has IUD Mirena. Remains active. The patient reports she has not been diagnosed with COVID-19. The patient reports she received 2 Offerm[employer] COVID-19 vaccines. The patient reports she is not waiting for the results of a COVID-19 lab test. The patient reports she does not have weakness, fatigue, or myalgia. The patient reports she does not have a worsening cough. The patient reports she does not have any loss of taste or smell and diarrhea. Denies recent traveling. Denies concerns for COVID-19 or exposures. At this time, the patient is not suspected of having COVID-19. Some parts of this dictation were generated by voice recognition software and may contain typographical and/or grammatical inaccuracies. Related Data Home Medications Medication Instructions Recorded Confirmed lamotrigine 150 mg PO BID 03/10/21 03/10/21 Allergies Allergy/AdvReac Type Severity Reaction Status Date / Time shrimp Allergy unknown Verified 03/10/21 13:36 wheat AdvReac Severe Abdominal Verified 03/10/21 13:36 Pain iodine AdvReac Intermediate sneezing Verified 03/10/21 13:36 irbesartan AdvReac hair loss Verified 03/10/21 13:36 Contrast Media AdvReac Mild SNEEZING Uncoded 03/10/21 13:36 Review of Systems Review of Systems: CONSTITUTIONAL: Denies fever, chills, sweats. EYES: Denies visual changes, redness, discharge. ENT: Complains of rhinorrhea, congestion, facial congestion and pressure, otalgia. Denies sore throat. CARDIOVASCULAR: Denies chest pain, palpitations, edema. RESPIRATORY: Denies dyspnea, wheezing. Complaints of cough. GASTROINTESTINAL: Denies abdominal pain, nausea, vomiting, diarrhea. GENITOURINARY: Denies dysuria, hematuria, abnormal discharge SKIN: Denies rash or itching. MUSCULOSKELETAL: Denies acute back pain, joint pain, or myalgia. NEUROLOGIC: Denies numbness or focal weakness. PSYCHIATRIC: Denies anxiety or depression. All other systems reviewed & are unremarkable except as noted in HPI and below. [facility] Past Medical History Medical History Abnormal endoscopy of upper gastrointestinal tract Arthritis BMI 34.0-34.9,adult Chronic back pain Chronic headaches Depression Diverticulitis Diverticulosis Gallbladder disease GERD (gastroesophageal reflux disease) Hemorrhoids Hypertension Ovarian cyst Seizures Sleep apnea Uterine fibroid Surgical History Surgical History H/O dilation and curettage H/O endoscopy H/O vein stripping History of appendectomy Hx of cholecystectomy Previous section Family History Family History Father Heart disease Hypertension Diabetes mellitus Mother Diabetes mellitus Heart disease Sibling No problems noted. Social History Social History (Updated 03/10/21 @ 14:45 by Jacek
== END 2021-03-10 14:44 | disposition home or self-care (01) ==
PROVIDERS: Emergency Provider Nurse Practitioner Family; PCP Family Medicine
DX: J32.9 Chronic sinusitis, unspecified (principal); B97.89 Other viral agents as the cause of diseases classified elsewhere; I10 Essential (primary) hypertension; Z87.891 Personal history of nicotine dependence
CPT/HCPCS: 99213; G0463

== ENCOUNTER → 2021-04-21 11:18 | Outpatient (CLI) | payer OTHER, MEDICAID, SELFPAY ==
--- NOTE | ~2021-04-21 | XR_ITS ---
EXAMINATION: XR chest 2V 04/21/2021 11:44 INDICATION: Cough PROCEDURE: 2 view chest COMPARISON: Comparison to multiple prior studies sequentially, with oldest reviewed study dated 11/2005. FINDINGS: The lungs are clear. The cardiomediastinal silhouette is within normal limits. There are no pleural effusions. There is no pneumothorax suspected. IMPRESSION: 1: NO ACUTE CARDIOPULMONARY DISEASE. Reviewed, dictated and finalized at location A.
--- NOTE | ~2021-04-21 | US_ITS ---
US thyroid INDICATION: Thyroid swelling. Neck mass. TECHNIQUE: Real-time sonographic images of the thyroid gland were obtained. COMPARISON: Ultrasound dated 05/24/2011 FINDINGS: The right thyroid lobe measures 4.8 x 2.3 x 1.8 cm. The left thyroid lobe measures 5.6 x 1 .9 x 1.6 cm. There is normal echotexture and echogenicity throughout the thyroid gland. No discrete n odules identified. Normal vascular flow is present. IMPRESSION: 1. Unremarkable thyroid without discrete nodule or abnormal vascularity. Reviewed, dictated and finalized at location A.
== END ==
PROVIDERS: PCP Family Medicine; Visit Provider Nurse Practitioner Family
DX: R22.1 Localized swelling, mass and lump, neck (principal); R00.2 Palpitations; R05.9 Cough, unspecified; R06.00 Dyspnea, unspecified
CPT/HCPCS: 71046; 76536

== ENCOUNTER 2021-04-21 12:03 | Outpatient (CLI) | payer OTHER, MEDICAID, SELFPAY ==
--- NOTE | 2021-04-21 12:36 | ECG_ITS ---
Measurements Intervals [place] Rate: 92 P: 69 [place]: 166 QRS: 49 QRSD: 77 T: 44 QT: 336 QTc: 416 Interpretive Statements SINUS RHYTHM WITH SINUS ARRHYTHMIA NORMAL ECG Electronically Signed On 04-21-2021 14:36:55 CDT by Jl De Leon D.O.
== END 2021-04-21 12:04 | disposition home or self-care (01) ==
PROVIDERS: PCP Family Medicine; Visit Provider Nurse Practitioner Family
DX: R00.2 Palpitations (principal); R06.00 Dyspnea, unspecified
CPT/HCPCS: 93005

== ENCOUNTER 2021-10-29 14:25 | Emergency (ER) | payer OTHER, MEDICAID, SELFPAY ==
--- NOTE | ~2021-10-29 | CT_ITS ---
EXAMINATION: CTA chest PE protocol DATE: 10/29/2021 20:24 INDICATION: elevated dimer, CP, cough TECHNIQUE: Computed tomography angiography (CTA) of the chest was performed with 100 mL Omnipaque-350 intravenous contrast timed to evaluate the pulmonary arteries. Coronal maximum intensity projection 3D-reconstructions were created by the technologist. The dose-length product (DLP) was 613.36 mGy-cm. Automated exposure control and iterative reconstruction technique were employed. COMPARISON: None. FINDINGS: Study quality: Adequate Pulmonary arteries: No pulmonary emboli detected. Thoracic aorta: Normal. Lung parenchyma and airways: Clear. Thoracic inlet, axillae and chest wall: Unremarkable. Mediastinum: Normal. Heart and pericardium: Normal. Coronary artery calcifications: Absent. Pleura: Unremarkable. Upper abdomen: No significant finding. Bones: No acute osseous finding. IMPRESSION: No CT evidence of pulmonary embolism. No acute finding in the chest. Reviewed, dictated and finalized at location K.
--- NOTE | ~2021-10-29 | XR_ITS ---
EXAMINATION: XR chest 2V DATE: 10/29/2021 14:54 INDICATION: Chest pain radiating to the left upper extremity. TECHNIQUE: Frontal and lateral views of the chest were obtained. COMPARISON: Chest 2 views 08/23/2019 FINDINGS: The chest demonstrates clear lungs without pneumonia, pleural effusion, or pneumothorax. Th e heart size is normal. IMPRESSION: 1. No acute cardiopulmonary disease. Reviewed, dictated and finalized at location A.
[2021-10-29 14:28] VITALS: BP 137/90; PULSE 98; RESP 16; TEMP 36.7; O2SAT 100
--- NOTE | 2021-10-29 14:31 | ECG_ITS ---
Measurements Intervals [place] Rate: 94 P: 69 [place]: 146 QRS: 52 QRSD: 75 T: 56 QT: 321 QTc: 402 Interpretive Statements SINUS RHYTHM NORMAL ECG COMPARED TO ECG 04/21/2021 12:43:06 NO SIGNIFICANT CHANGES Electronically Signed On 10-29-2021 15:47:21 CDT by Jimenez hCowdary M.D.
[2021-10-29 14:51] LABS: Basophils Percent Auto 0.5 % (0.2-1.2); Eosinophils Absolute Auto 0.4 K/mm3 (0-0.3); Hematocrit 41.5 % (37.0-47.0); Hemoglobin 13.4 g/dL (12.0-15.0); Immature Granulocyte Absolute 0.01 K/mm3 (0.00-0.031); Immature Granulocyte Percent A 0.1 % (0-0.5); Lymphocytes Percent Auto 26.2 % (18.3-44.2); Mean Corpuscular HGB Conc 32.3 g/dl (32-36); Mean Corpuscular Volume 92.8 fl (80-100); Mean Platelet Volume 9.4 fl (7.4-10.4); Monocytes Absolute Auto 0.4 K/mm3 (0.1-0.6); Monocytes Percent Auto 5.5 % (2.6-8.5); Neutrophils Absolute Auto 4.8 K/mm3 (1.3-6.7); Neutrophils Percent Auto 62.7 % (45.5-73.1); Platelet Count Result 337 k/mm3 (150-375); Red Blood Count 4.47 M/mm3 (4.2-5.4); Red Cell Distribution Width 12.9 % (11.5-14.5); White Blood Count 7.6 K/mm3 (4.5-10.0)
[2021-10-29 15:00] LABS: INR 1.1; Prothrombin Time 13.5 Seconds (11.1-14.7)
[2021-10-29 15:01] LABS: Partial Thromboplastin Time 27.1 SECONDS (22.3-36.8)
[2021-10-29 15:02] LABS: Alanine Aminotransferase 28 U/L (4-35); Albumin Level 4.9 g/dL (3.5-5.1); Alkaline Phosphatase 115 U/L (38-126); Anion Gap 8 mmol/L (8-16); Aspartate Amino Transferase 29 U/L (14-36); Bilirubin,Total 0.4 mg/dL (0.2-1.3); Blood Urea Nitrogen 7 mg/dL (7-17); Calcium 9.3 mg/dL (8.4-10.2); Carbon Dioxide 28 mmol/L (22-30); Chloride 101 mmol/L (98-107); Estimated CRCL calculation 109 ml/min; Estimated Glomerular Filt Rate > 60; Glucose 104 mg/dL (65-110); Lipase 77 U/L (23-300); Potassium 4.5 mmol/L (3.4-5.0); Sodium 137 mmol/L (137-145)
[2021-10-29 15:13] LABS: Troponin I < 0.012 ng/mL (0.000-0.034)
[2021-10-29 18:16] LABS: Troponin I < 0.012 ng/mL (0.000-0.034)
[2021-10-29 18:36] LABS: SPREG INTERNAL CONTROL Positive; Serum Qual hCG Negative
[2021-10-29 18:37] VITALS: BP 134/81; PULSE 91; RESP 17; O2SAT 94
--- NOTE | 2021-10-29 18:47 | ED.GENADULT ---
HPI - General Adult General Chief complaint: Recheck/Abnormal Lab/Rx Stated complaint: low bp Time Seen by Provider: 10/29/21 18:36 History of Present Illness HPI narrative: Patient is a 41-year-old female who presents with complaints of productive cough x 1 month, worse last night. She states she woke up in the middle the night with a coughing fit. Patient additionally states she was feeling off today with some chest pain that radiated down her left arm and left leg. States the pain is sharp in nature, lasting seconds at a time, and denies any provoking or alleviating factors. This led her to take her vital signs at home, and she noticed she had a low blood pressure and a heart rate in the 110s, so she called her primary care physician, who recommended ED evaluation. She denies any shortness of breath, leg swelling, chest pain, hemoptysis, fevers, chills, nausea, vomiting. She did take recent long trips to [place] which were 10-hour car rides both ways last week, and has a family history of pulmonary embolism in her mother. Denies oral contraceptive use. Related Data Allergies Allergy/AdvReac Type Severity Reaction Status Date / Time shrimp Allergy unknown Verified 10/29/21 18:47 wheat AdvReac Severe Abdominal Verified 10/29/21 18:47 Pain iodine AdvReac Intermediate sneezing Verified 10/29/21 18:47 irbesartan AdvReac hair loss Verified 10/29/21 18:47 Contrast Media AdvReac Mild SNEEZING Uncoded 10/29/21 18:47 Review of Systems Review of Systems: Gen.: Denies fevers or chills Eyes: Denies eye pain or visual change ENT: Denies congestion Respiratory: Reports cough. Denies shortness of breath CV: Denies chest pain or palpitations GI: Denies abdominal pain nausea, emesis or diarrhea denies burning, urgency, frequency or hematuria Musculoskeletal: Denies back pain or muscle pain Neuro: Denies numbness, tingling, weakness or focal weakness Skin: Denies rash Except as documented, all other systems reviewed and negative [facility] Past Medical History Medical History Abnormal endoscopy of upper gastrointestinal tract Arthritis BMI 34.0-34.9,adult BMI 37.0-37.9, adult Chronic back pain Chronic headaches Depression Diverticulitis Diverticulosis Gallbladder disease GERD (gastroesophageal reflux disease) Hemorrhoids Hypertension Ovarian cyst Seizures Sleep apnea Uterine fibroid Surgical History Surgical History H/O dilation and curettage H/O endoscopy H/O vein stripping History of appendectomy Hx of cholecystectomy Previous section Family History Family History Father Heart disease Hypertension Diabetes mellitus Mother Diabetes mellitus Heart disease Sibling No problems noted. 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 Head normocephalic and atraumatic. EYES: PERRLA/EOMI, conjunctivae clear NOSE: No nasal drainage EARS: External ear normal in appearance THROAT: Oropharynx is clear. Mucous membranes are moist. NECK: Supple. No adenopathy, no masses. RESPIRATORY: Airway patent, respirations nonlabored. Clear to auscultation bilaterally, no rales, rhonchi, wheezing. CARDIOVASCULAR: Regular rate and rhythm without murmurs, rubs, or gallops. No reproducible chest pain by palpation. ABDOMINAL: Normoactive bowel regulo
[2021-10-29 19:24] LABS: D Dimer 0.61 ug/mL (<0.48)
[2021-10-29] MEDS: diphenhydrAMINE HCl INJ 50 MG/ML VIAL IV PUSH (20:08)
[2021-10-29 21:13] LABS: Troponin I < 0.012 ng/mL (0.000-0.034)
[2021-10-29 21:25] VITALS: BP 106/64; PULSE 94; RESP 17; O2SAT 100
== END 2021-10-29 21:25 | disposition home or self-care (01) ==
PROVIDERS: Emergency Medicine; Physician Assistant; Emergency Provider Emergency Medicine; PCP Family Medicine
DX: B34.9 Viral infection, unspecified (principal); I10 Essential (primary) hypertension; M19.90 Unspecified osteoarthritis, unspecified site; K21.9 Gastro-esophageal reflux disease without esophagitis; G47.30 Sleep apnea, unspecified; Z87.891 Personal history of nicotine dependence
CPT/HCPCS: 36415; 71046; 71275; 80053; 83690; 84484; 84703; 85025; 85380; 85610; 85730; 93005; 96374; 99284; J1200; Q9967

== ENCOUNTER 2021-12-19 11:44 | Emergency (ER) | payer OTHER, MEDICAID, SELFPAY ==
--- NOTE | ~2021-12-19 | XR_ITS ---
EXAMINATION: XR chest 2V DATE: 12/19/2021 12:22 INDICATION: Cough. TECHNIQUE: Frontal and lateral views of the chest were obtained. COMPARISON: Chest 2 views 10/29/2021 FINDINGS: The chest demonstrates clear lungs without pneumonia, pleural effusion, or pneumothorax. Th e heart size is normal. Surgical clips in the right upper quadrant are likely from cholecystectomy. IMPRESSION: 1. No acute cardiopulmonary disease. Reviewed, dictated and finalized at location A.
[2021-12-19 11:49] VITALS: BP 134/84; PULSE 99; RESP 16; TEMP 36.7; O2SAT 100
--- NOTE | 2021-12-19 12:01 | ED.URI ---
HPI - URI/Sore Throat General Chief Complaint: Upper Respiratory Infection Stated Complaint: COUGH/SOB Time Seen by Provider: 12/19/21 12:01 Source: patient and RN notes reviewed Mode of arrival: ambulatory Limitations: no limitations History of Present Illness HPI Narrative: 41-year-old female presented for complaint of cough, chest congestion and wheezing for 4 days. Cough is moist and nonproductive. She took a home COVID test 2 nights ago that was negative. She denies sick contacts. She is not boosted for COVID. She has been taking [id number] Coricidin HBP and using rescue inhaler as needed for symptoms. She denies chest pain, nausea, vomiting, diarrhea, fevers or chills. Former smoker 19 years ago, started back 1 month ago, not smoking x4 days. MD elicited complaint: cough Related Data Allergies Allergy/AdvReac Type Severity Reaction Status Date / Time Penicillins Allergy Other Verified 12/19/21 12:01 shrimp Allergy unknown Verified 12/19/21 12:00 wheat AdvReac Severe Abdominal Verified 12/19/21 12:00 Pain iodine AdvReac Intermediate sneezing Verified 12/19/21 12:00 irbesartan AdvReac hair loss Verified 12/19/21 12:00 Contrast Media AdvReac Mild SNEEZING Uncoded 12/19/21 12:00 Review of Systems Review of Systems: CONSTITUTIONAL:denies malaise, chills, sweats, fever EYES: Denies visual changes, redness, or discharge ENT: Denie sinus pain, otalgia, sore throat CARDIOVASCULAR: Denies chest pain, palpitations, edema RESPIRATORY: Reports cough dyspnea GASTROINTESTINAL: Denies abdominal pain, nausea, vomiting, diarrhea PMFSH Past Medical History Medical History Abnormal endoscopy of upper gastrointestinal tract Arthritis BMI 31.0-31.9,adult BMI 34.0-34.9,adult BMI 37.0-37.9, adult Chronic back pain Chronic headaches Depression Diverticulitis Diverticulosis Gallbladder disease GERD (gastroesophageal reflux disease) Hemorrhoids Hypertension Ovarian cyst Seizures Sleep apnea Uterine fibroid Surgical History Surgical History H/O dilation and curettage H/O endoscopy H/O vein stripping History of appendectomy Hx of cholecystectomy Previous section Family History Family History Father Heart disease Hypertension Diabetes mellitus Mother Diabetes mellitus Heart disease Sibling No problems noted. 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 TM pearly fairchild with dull light reflex bilaterally; no tragal tenderness. Oropharynx erythematous without lesions or exudate, no drooling, no hoarseness, no trismus, uvula midline. NECK: Supple. No lymphadenopathy CHEST: Lungs diminished with wheezing bilateral posterior No respiratory distress, speaks in full sentences. HEART: Regular rate and rhythm. No murmur heard. SKIN: Warm, dry, no rash. PSYCH: Normal mood and affect Course Course Emergency Course: Patient is aware of diagnosis, understands and agrees to treatment plan. Anticipatory guidance given. Patient agrees to follow-up as directed and is aware of reasons to seek care at the emergency department. Portions of this record may have been created with voice recognition software Level of Care: Express Care Visit Vital Signs Vital signs: Vital Signs Temperature 98.0 F
== END 2021-12-19 12:57 | disposition home or self-care (01) ==
PROVIDERS: Emergency Provider Nurse Practitioner Family; PCP Family Medicine
DX: J40 Bronchitis, not specified as acute or chronic (principal); Z87.891 Personal history of nicotine dependence; M19.90 Unspecified osteoarthritis, unspecified site; K21.9 Gastro-esophageal reflux disease without esophagitis; I10 Essential (primary) hypertension; G47.30 Sleep apnea, unspecified; G40.909 Epilepsy, unspecified, not intractable, without status epilepticus; F32.A Depression, unspecified
CPT/HCPCS: 71046; 99213; G0463

== ENCOUNTER 2022-02-04 15:59 | Emergency (ER) | payer OTHER, MEDICAID, SELFPAY ==
[2022-02-04] VITALS (7 sets, daily range): BP systolic 109–143; BP diastolic 74–95; PULSE 76–94; RESP 14–22; TEMP 36.7; O2SAT 96–100
--- NOTE | ~2022-02-04 | XR_ITS ---
EXAMINATION: XR chest 2V DATE: 02/04/2022 16:37 INDICATION: Right chest pain. Right arm pain. TECHNIQUE: Frontal and lateral views of the chest were obtained. COMPARISON: Chest 2 views 12/19/2021 FINDINGS: The chest demonstrates clear lungs without pneumonia, pleural effusion, or pneumothorax. Th e heart size is normal. Surgical clips in the right upper quadrant are likely from cholecystectomy. IMPRESSION: 1. No acute cardiopulmonary disease. Reviewed, dictated and finalized at location A.
--- NOTE | 2022-02-04 16:03 | ECG_ITS ---
Measurements Intervals [place] Rate: 87 P: 53 [place]: 148 QRS: 38 QRSD: 77 T: 48 QT: 336 QTc: 405 Interpretive Statements SINUS RHYTHM BASELINE ARTIFACT- I, II, III, AVR, AVL, V1 NORMAL ECG Electronically Signed On 02-04-2022 18:52:20 CDT by Jl De Leon D.O.
[2022-02-04 16:22] LABS: Basophils Absolute Auto 0.1 K/mm3 (0.0-0.1); Basophils Percent Auto 1.2 % (0.2-1.2); Eosinophils Absolute Auto 0.5 K/mm3 (0-0.3); Hematocrit 38.4 % (37.0-47.0); Hemoglobin 12.8 g/dL (12.0-15.0); Immature Granulocyte Absolute 0.02 K/mm3 (0.00-0.031); Immature Granulocyte Percent A 0.3 % (0-0.5); Lymphocytes Absolute Auto 1.77 K/mm3 (0.9-3.2); Lymphocytes Percent Auto 22.7 % (18.3-44.2); Mean Corpuscular HGB Conc 33.3 g/dl (32-36); Mean Corpuscular Hemoglobin 30.1 pg (26-34); Mean Corpuscular Volume 90.4 fl (80-100); Mean Platelet Volume 9.3 fl (7.4-10.4); Monocytes Absolute Auto 0.3 K/mm3 (0.1-0.6); Monocytes Percent Auto 4.4 % (2.6-8.5); Neutrophils Absolute Auto 5.1 K/mm3 (1.3-6.7); Neutrophils Percent Auto 65.4 % (45.5-73.1); Platelet Count Result 309 k/mm3 (150-375); Red Blood Count 4.25 M/mm3 (4.2-5.4); Red Cell Distribution Width 13.2 % (11.5-14.5); White Blood Count 7.8 K/mm3 (4.5-10.0)
[2022-02-04 16:28] LABS: Alanine Aminotransferase 25 U/L (6-35); Albumin Level 4.8 g/dL (3.5-5.1); Alkaline Phosphatase 103 U/L (38-126); Anion Gap 8 mmol/L (8-16); Aspartate Amino Transferase 24 U/L (14-36); Bilirubin,Total 0.6 mg/dL (0.2-1.3); Blood Urea Nitrogen 9 mg/dL (7-17); Calcium 9.2 mg/dL (8.4-10.2); Carbon Dioxide 29 mmol/L (22-30); Chloride 100 mmol/L (98-107); Estimated CRCL calculation 109 ml/min; Estimated Glomerular Filt Rate > 60; Glucose 96 mg/dL (65-110); Lipase 39 U/L (23-300); Potassium 4.1 mmol/L (3.4-5.0); Sodium 137 mmol/L (137-145)
[2022-02-04 16:29] LABS: INR 1.1; Prothrombin Time 13.5 Seconds (11.1-14.7)
[2022-02-04 16:30] LABS: Partial Thromboplastin Time 28.2 SECONDS (22.3-36.8)
[2022-02-04 16:39] LABS: Troponin I < 0.012 ng/mL (0.000-0.034)
--- NOTE | 2022-02-04 19:11 | ED.CHESTPAIN ---
HPI - Chest Pain General Chief Complaint: Chest Pain Stated Complaint: Leg pain Time Seen by Provider: 02/04/22 18:41 Source: patient Mode of arrival: ambulatory Limitations: no limitations History of Present Illness HPI narrative: This is a 41 year old female that presents to the emergency department right lower extremity pain ongoing over the last couple of days. Reports constant pain in the right calf. She took Tylenol prior to arrival. Reports her mother has history of DVT which prompted her to be evaluated today. Reports history of varicose veins. She is scheduled to see a vascular surgeon soon for this. Also reports she has been having some left-sided shoulder and arm pain. Worse with movement and relieved with rest. Denies chest pain, shortness of breath, decreased range of motion or numbness. Related Data Allergies Allergy/AdvReac Type Severity Reaction Status Date / Time Penicillins Allergy Other Verified 01/01/22 10:49 shrimp Allergy unknown Verified 01/01/22 10:49 wheat AdvReac Severe Abdominal Verified 01/01/22 10:49 Pain iodine AdvReac Intermediate sneezing Verified 01/01/22 10:49 irbesartan AdvReac hair loss Verified 01/01/22 10:49 Contrast Media AdvReac Mild SNEEZING Uncoded 01/01/22 10:49 Review of Systems Review of Systems: CONSTITUTIONAL: Denies fever CARDIOVASCULAR: Reports edema. Denies chest pain RESPIRATORY: Denies dyspnea. SKIN: Denies rash MUSCULOSKELETAL: Reports joint pain, and myalgia. NEUROLOGIC: Denies numbness All systems reviewed & are unremarkable except as noted in HPI and below PMFSH Past Medical History Medical History Abnormal endoscopy of upper gastrointestinal tract Arthritis BMI 31.0-31.9,adult BMI 34.0-34.9,adult BMI 37.0-37.9, adult Chronic back pain Chronic headaches Depression Diverticulitis Diverticulosis Gallbladder disease GERD (gastroesophageal reflux disease) Hemorrhoids Hypertension Ovarian cyst Seizures Sleep apnea Uterine fibroid Surgical History Surgical History H/O dilation and curettage H/O endoscopy H/O vein stripping History of appendectomy Hx of cholecystectomy Previous section Family History Family History Father Heart disease Hypertension Diabetes mellitus Mother Diabetes mellitus Heart disease Sibling No problems noted. 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 HEAD: Normocephalic, atraumatic. EYES: EOMI. ENT: Mucous membranes moist. Oropharynx without tonsillar hypertrophy exudate or other lesions. NECK: Supple. No adenopathy or masses. CHEST: Clear to auscultation. No respiratory distress. No wheezes rales or rhonchi HEART: Regular rate and rhythm. No murmur heard. Normal peripheral pulses. EXTREMITIES: Normal range of motion. Mild edema about the right calf without erythema. Normal DP and radial pulses. Normal sensation. Pain with active range of motion in the left shoulder. SKIN: Warm, dry, no rash. NEURO: No focal deficits. Alert and oriented x3. PSYCH: Normal mood and affect Course Vital Signs Vital signs: Vital Signs Temperature 98.1 F
[2022-02-04] MEDS: oxyCODONE HCL (*CRX) 5 MG TAB IR PO (19:55)
[2022-02-04 20:06] LABS: Troponin I < 0.012 ng/mL (0.000-0.034)
[2022-02-04] MEDS: ENOXAPARIN 100 MG/ML SYRINGE 90 MG SUB-Q (20:07)
== END 2022-02-04 21:00 | disposition home or self-care (01) ==
PROVIDERS: Physician Assistant; Emergency Provider Emergency Medicine; PCP Family Medicine
DX: R60.0 Localized edema (principal); M79.602 Pain in left arm; I10 Essential (primary) hypertension; M19.90 Unspecified osteoarthritis, unspecified site; K21.9 Gastro-esophageal reflux disease without esophagitis; G47.30 Sleep apnea, unspecified; Z87.891 Personal history of nicotine dependence
CPT/HCPCS: 36415; 71046; 80053; 83690; 84484; 85025; 85380; 85610; 85730; 93005; 96372; 99284; A9270; J1650

== ENCOUNTER 2022-02-05 07:47 | Outpatient (CLI) | payer OTHER, MEDICAID, SELFPAY ==
--- NOTE | ~2022-02-05 | US_ITS ---
EXAMINATION: US venous doppler LE RT DATE: 02/05/2022 08:29 INDICATION: Right lower limb pain and swelling TECHNIQUE: Grayscale ultrasound images without and with compression and Doppler ultrasound images of the right lower extremity veins were obtained. COMPARISON: None. FINDINGS: The visualized portions of right common femoral vein, profunda (deep) femoral vein, femoral vein, pop liteal vein, peroneal trunk, posterior tibial veins, peroneal veins, gastrocnemius vein and greater s aphenous vein outflow are patent. IMPRESSION: 1. No deep venous thrombosis in the right lower limb. Reviewed, dictated and finalized at location A.
== END 2022-02-05 07:48 | disposition home or self-care (01) ==
LOC: ANHIMG 07:50
PROVIDERS: PCP Family Medicine; Visit Provider Family Medicine
DX: M79.89 Other specified soft tissue disorders (principal)
CPT/HCPCS: 93971

== ENCOUNTER 2022-03-14 20:12 | Emergency (ER) | payer OTHER, MEDICAID, SELFPAY ==
--- NOTE | ~2022-03-14 | CT_ITS ---
EXAMINATION: CT abdomen pelvis wo con DATE: 03/14/2022 21:26 INDICATION: Suprapubic pain. TECHNIQUE: Computed tomography (CT) of the abdomen and pelvis was performed without intravenous contr ast. Automated exposure control and iterative reconstruction technique were employed. The dose-length product was 786.92 mGy-cm. COMPARISON: 08/25/2020 FINDINGS: Lung bases are clear. Visualized inferior heart is normal. No pericardial or pleural effusion. Cholec ystectomy clips the gallbladder fossa. Liver, spleen, pancreas, bilateral adrenal glands and kidneys are normal. Surgical clips at the tip the cecum likely related to prior appendectomy. Numerous divert icula along the descending and sigmoid colon. Suprapubic region there is mild inflammatory stranding in the fat situated between the anterior dome of the bladder and the anterior inferior margin of the mid sigmoid colon most likely related to diverticulitis. Small amount of either reactive or physiolog ic free fluid in the cul-de-sac. No abscess or free intraperitoneal gas. Bladder is normal. T-shaped IUD in expected position within the anteverted uterus. Bilateral adnexa are unremarkable. No patholog ically enlarged abdominal or pelvic lymphadenopathy. Small fat-containing umbilical hernia. Severe lo wer lumbar facet osteoarthritis. IMPRESSION: 1. Radiographically uncomplicated sigmoid diverticulitis. Reviewed, dictated and finalized at location A.
[2022-03-14 20:19] VITALS: BP 138/91; PULSE 100; RESP 16; TEMP 36.8; O2SAT 99
[2022-03-14 20:34] LABS: Basophils Absolute Auto 0.1 K/mm3 (0.0-0.1); Basophils Percent Auto 0.7 % (0.2-1.2); Eosinophils Absolute Auto 0.4 K/mm3 (0-0.3); Eosinophils Percent Auto 3.2 % (0-4.4); Hematocrit 40.3 % (37.0-47.0); Hemoglobin 13.8 g/dL (12.0-15.0); Immature Granulocyte Absolute 0.03 K/mm3 (0.00-0.031); Immature Granulocyte Percent A 0.2 % (0-0.5); Lymphocytes Absolute Auto 3.27 K/mm3 (0.9-3.2); Lymphocytes Percent Auto 23.7 % (18.3-44.2); Mean Corpuscular HGB Conc 34.2 g/dl (32-36); Mean Corpuscular Hemoglobin 31.3 pg (26-34); Mean Corpuscular Volume 91.4 fl (80-100); Mean Platelet Volume 9.2 fl (7.4-10.4); Monocytes Absolute Auto 0.9 K/mm3 (0.1-0.6); Monocytes Percent Auto 6.2 % (2.6-8.5); Neutrophils Absolute Auto 9.1 K/mm3 (1.3-6.7); Platelet Count Result 358 k/mm3 (150-375); Red Blood Count 4.41 M/mm3 (4.2-5.4); White Blood Count 13.8 K/mm3 (4.5-10.0)
[2022-03-14 20:35] LABS: Appearance Urine Cloudy (Clear); Bilirubin Urine Negative (Negative); Blood Urine Negative (Negative); Color Urine Yellow (Yellow); Glucose Urine UA Negative (Negative); Ketones Urine Negative (Negative); Leukocyte Esterase Ur Negative LEU/UL (Negative); Nitrate Urine Negative (Negative); Protein Urine Negative (Negative); pH Urine 7.5 (5.0-9.0)
[2022-03-14 20:44] LABS: Alanine Aminotransferase 20 U/L (6-35); Alkaline Phosphatase 119 U/L (38-126); Anion Gap 11 mmol/L (8-16); Aspartate Amino Transferase 27 U/L (14-36); Bilirubin,Total 0.6 mg/dL (0.2-1.3); Blood Urea Nitrogen 11 mg/dL (7-17); Carbon Dioxide 26 mmol/L (22-30); Chloride 100 mmol/L (98-107); Estimated CRCL calculation 97 ml/min; Estimated Glomerular Filt Rate > 60; Glucose 114 mg/dL (65-110); Lipase 84 U/L (23-300); Potassium 4.1 mmol/L (3.4-5.0); Sodium 137 mmol/L (137-145)
[2022-03-14 20:49] LABS: Add Urine Microscopic? YES; Amorphous Sediment Urine Few; Bacteria Urine Trace /hpf; Budding Yeast Urine Present /hpf; Mucus Urine Rare /lpf; Squamous Epithelial Cell Urine Rare /hpf (Few); WBC Urine 0-3 /hpf
--- NOTE | 2022-03-14 21:15 | ED.ABDPAIN ---
HPI - Abdominal Pain General Chief Complaint: Abdominal Pain Stated Complaint: ABD pain Time Seen by Provider: 03/14/22 20:20 Source: patient Mode of arrival: ambulatory Limitations: no limitations History of Present Illness HPI narrative: Patient is a 41-year-old female who presents the ED with report of pain in her lower abdomen, in her suprapubic region, that began around 12 PM today. Patient reports the pain is intermittent, sharp/stabbing in nature. She tried taking Tylenol and ibuprofen when the pain began, but denied any relief. She does note family history of kidney stones and personal history of diverticulitis. She denies any recent fever, nausea, vomiting, diarrhea, constipation, rectal bleeding, dysuria, hematuria, urinary frequency. Related Data Allergies Allergy/AdvReac Type Severity Reaction Status Date / Time Penicillins Allergy Other Verified 03/14/22 20:24 shrimp Allergy unknown Verified 03/14/22 20:24 wheat AdvReac Severe Abdominal Verified 03/14/22 20:24 Pain iodine AdvReac Intermediate sneezing Verified 03/14/22 20:24 irbesartan AdvReac hair loss Verified 03/14/22 20:24 Contrast Media AdvReac Mild SNEEZING Uncoded 03/14/22 20:16 Review of Systems Review of Systems: CONSTITUTIONAL: Denies fever, chills, or sweats. CARDIOVASCULAR: Denies chest pain. RESPIRATORY: Denies cough or dyspnea. GASTROINTESTINAL: Reports suprapubic ABD pain. Denies constipation, nausea, rectal bleeding, vomiting, or diarrhea. GENITOURINARY: Denies dysuria, urinary frequency, or hematuria. MUSCULOSKELETAL: Denies back pain, joint pain, or myalgia. All systems reviewed & are unremarkable except as noted in HPI and below PMFSH Past Medical History Medical History Abnormal endoscopy of upper gastrointestinal tract Arthritis BMI 31.0-31.9,adult BMI 34.0-34.9,adult BMI 37.0-37.9, adult Chronic back pain Chronic headaches Depression Diverticulitis Diverticulosis Gallbladder disease GERD (gastroesophageal reflux disease) Hemorrhoids Hypertension Ovarian cyst Seizures Sleep apnea Uterine fibroid Surgical History Surgical History H/O dilation and curettage H/O endoscopy H/O vein stripping History of appendectomy Hx of cholecystectomy Previous section Family History Family History Father Heart disease Hypertension Diabetes mellitus Mother Diabetes mellitus Heart disease Sibling No problems noted. 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 HEAD: Normocephalic, atraumatic. NECK: Supple. No adenopathy, no masses. RESPIRATORY: Airway patent, respirations nonlabored. Clear to auscultation bilaterally, no rales, rhonchi, wheezing. CARDIOVASCULAR: Regular rate and rhythm without murmurs, rubs, or gallops. Peripheral pulses 2+ and equal bilaterally. ABDOMINAL: Soft, tenderness to palpation in suprapubic region, directly over bladder, no significant tenderness elsewhere throughout the abdomen. Nondistended, no hepatosplenomegaly. Normoactive BS. MUSCULOSKELETAL: Moves all extremities. Strength/ROM intact without gross deformities or TT
[2022-03-14] MEDS: SODIUM CHLORIDE 0.9% IV 1,000 ML 999 ML IV CONT (21:36)
[2022-03-14] MEDS: metroNIDAZOLE 250 MG TABLET 500 MG PO (22:42)
[2022-03-14] MEDS: CIPROFLOXACIN 500 MG TAB PO (22:42)
[2022-03-14] MEDS: ONDANSETRON INJ 4 MG/2 ML VIAL IV PUSH (22:43)
[2022-03-14] MEDS: MORPHINE SULFATE (*CRX) 4 MG/ML INJ IV PUSH (22:44)
[2022-03-14 22:49] VITALS: BP 142/69; PULSE 90; RESP 20; O2SAT 100
== END 2022-03-14 23:01 | disposition home or self-care (01) ==
PROVIDERS: Emergency Provider Emergency Medicine; PCP Family Medicine
DX: K57.32 Diverticulitis of large intestine without perforation or abscess without bleeding (principal); I10 Essential (primary) hypertension; K21.9 Gastro-esophageal reflux disease without esophagitis; M19.90 Unspecified osteoarthritis, unspecified site; F32.A Depression, unspecified; G47.30 Sleep apnea, unspecified; Z87.891 Personal history of nicotine dependence
CPT/HCPCS: 36415; 74176; 80053; 81001; 81025; 83690; 85025; 96365; 96375; 99284; A9270; J0131; J2270; J2405; J7030

== ENCOUNTER 2022-04-23 10:31 | Outpatient (CLI) | payer OTHER, MEDICAID, SELFPAY ==
--- NOTE | ~2022-04-23 | MM_ITS ---
EXAMINATION: MM screening [facility] BI w milo HISTORY: Screening mammogram TECHNIQUE: Craniocaudal and mediolateral oblique 3-D tomosynthesis images were obtained and synthetic 2-D images were generated. CAD analysis was submitted and interpreted. COMPARISON: 02/09/2021, 02/18/2020, 01/07/2020 BREAST PARENCHYMAL COMPOSITION: The breasts are heterogeneously dense, which may obscure small masses . FINDINGS: An asymmetry asymmetry in the middle third of the right breast on the mediolateral oblique view is stable. There is no suspicious mass, calcification, or architectural distortion to suggest ma lignancy in either breast. There has been no suspicious interval change. IMPRESSION: 1. No mammographic evidence of malignancy. 2. Recommend routine screening mammography in one year. BI-RADS Category 2: Benign finding(s). Reviewed, dictated and finalized at location A.
== END 2022-04-23 10:32 | disposition home or self-care (01) ==
PROVIDERS: PCP Family Medicine; Visit Provider Nurse Practitioner Obstetrics & Gynecology
DX: Z12.31 Encounter for screening mammogram for malignant neoplasm of breast (principal)
CPT/HCPCS: 77063; 77067

== ENCOUNTER 2022-05-28 12:30 | Outpatient (CLI) | payer OTHER, MEDICAID, SELFPAY | END 2022-05-28 12:31 | disposition home or self-care (01) | PROVIDERS: PCP Family Medicine; Visit Provider Surgery | DX: K57.92 Diverticulitis of intestine, part unspecified, without perforation or abscess without bleeding (principal); Z01.818 Encounter for other preprocedural examination | CPT/HCPCS: 36415; 86850; 86900; 86901 ==

== ENCOUNTER 2022-06-04 21:46 | Emergency (ER) | payer OTHER, MEDICAID, SELFPAY ==
[2022-06-04 21:49] VITALS: BP 99/68; PULSE 89; RESP 23; TEMP 37.3
[2022-06-04] MEDS: ONDANSETRON INJ 4 MG/2 ML VIAL IV PUSH (22:59)
[2022-06-04] MEDS: SODIUM CHLORIDE 0.9% IV 1,000 ML 999 ML IV CONT (22:59)
[2022-06-04 23:00] LABS: Basophils Absolute Auto 0.1 K/mm3 (0.0-0.1); Basophils Percent Auto 0.6 % (0.2-1.2); Eosinophils Absolute Auto 0.5 K/mm3 (0-0.3); Eosinophils Percent Auto 3.6 % (0-4.4); Hematocrit 41.7 % (37.0-47.0); Hemoglobin 14.3 g/dL (12.0-15.0); Immature Granulocyte Absolute 0.03 K/mm3 (0.00-0.031); Immature Granulocyte Percent A 0.2 % (0-0.5); Lymphocytes Absolute Auto 2.08 K/mm3 (0.9-3.2); Lymphocytes Percent Auto 15.7 % (18.3-44.2); Mean Corpuscular HGB Conc 34.3 g/dl (32-36); Mean Corpuscular Hemoglobin 31.6 pg (26-34); Mean Corpuscular Volume 92.1 fl (80-100); Mean Platelet Volume 9.6 fl (7.4-10.4); Monocytes Absolute Auto 0.7 K/mm3 (0.1-0.6); Monocytes Percent Auto 5.1 % (2.6-8.5); Neutrophils Absolute Auto 9.9 K/mm3 (1.3-6.7); Neutrophils Percent Auto 74.8 % (45.5-73.1); Platelet Count Result 349 k/mm3 (150-375); Red Blood Count 4.53 M/mm3 (4.2-5.4); Red Cell Distribution Width 12.2 % (11.5-14.5); White Blood Count 13.3 K/mm3 (4.5-10.0)
[2022-06-04 23:11] LABS: Alanine Aminotransferase 24 U/L (6-35); Albumin Level 4.8 g/dL (3.5-5.1); Alkaline Phosphatase 101 U/L (38-126); Anion Gap 14 mmol/L (8-16); Aspartate Amino Transferase 27 U/L (14-36); Bilirubin,Total 0.9 mg/dL (0.2-1.3); Blood Urea Nitrogen 8 mg/dL (7-17); Calcium 9.1 mg/dL (8.4-10.2); Carbon Dioxide 22 mmol/L (22-30); Chloride 103 mmol/L (98-107); Estimated CRCL calculation 108 ml/min; Estimated Glomerular Filt Rate > 60; Glucose 100 mg/dL (65-110); Lipase 55 U/L (23-300); Potassium 3.6 mmol/L (3.4-5.0); Sodium 139 mmol/L (137-145)
--- NOTE | 2022-06-05 00:09 | ED.GENADULT ---
HPI - General Adult General Chief complaint: Dizziness Stated complaint: DIZZY S/P BOWEL PREP Time Seen by Provider: 06/04/22 22:34 History of Present Illness HPI narrative: Patient is a 41-year-old female who presents the emergency department with chief complaint of dizziness. Patient reports that she is undergoing a bowel prep for surgery in the morning and reports that while she was on the toilet she started getting lightheaded and then got up and fell toward the bed and landed on the bed. The patient states that she feels very lightheaded and has had multiple bowel movements while she has been doing the prep. Patient denies chest pain denies abdominal pain patient of injury from the fall. Related Data Home Medications Medication Instructions Recorded Confirmed loratadine 10 mg tablet (Claritin) 10 mg PO DAILY PRN Congestion 05/28/22 05/28/22 Allergies Allergy/AdvReac Type Severity Reaction Status Date / Time Penicillins Allergy Rash Verified 05/28/22 12:52 shrimp Allergy Rash Verified 05/28/22 12:52 wheat AdvReac Severe Abdominal Verified 05/28/22 12:52 Pain iodine AdvReac Intermediate sneezing Verified 05/28/22 12:52 irbesartan AdvReac hair loss Verified 05/28/22 12:52 Contrast Media AdvReac Mild SNEEZING Uncoded 05/28/22 12:52 Review of Systems Review of Systems: A 10 system review of systems was completed on the patient and is negative except for what is stated in the HPI. Nursing and ancillary documentation was reviewed. [facility] Past Medical History Medical History Abnormal endoscopy of upper gastrointestinal tract Arthritis BMI 31.0-31.9,adult BMI 32.0-32.9,adult BMI 34.0-34.9,adult BMI 37.0-37.9, adult Chronic back pain Chronic headaches Depression Diverticulitis Diverticulosis Gallbladder disease GERD (gastroesophageal reflux disease) Hemorrhoids Hypertension Ovarian cyst Seizures Sleep apnea Uterine fibroid Surgical History Surgical History H/O dilation and curettage H/O endoscopy H/O vein stripping History of appendectomy Hx of cholecystectomy Previous section Family History Family History Father Heart disease Hypertension Diabetes mellitus Mother Diabetes mellitus Heart disease Sibling No problems noted. Grandparent Breast cancer Social History Social History Smoking packs per day: 1 Smoking cigarettes per day: 20.0 Years smoked: 7 Smoking pack-years: 7.00 Smoking status: Former smoker Tobacco type: cigarettes and e-cigarettes/vaping Second hand tobacco smoke exposure: Yes (SPOUSE) Additional smoking assessment comments: STATES QUIT SMOKING 2001, STARTED BACK UP 3 MONTHS-QUIT 02/2022, VAPES DAILY Alcohol intake: current Drinks per week: 1 Alcohol use details: social Substance use: never Substance use type: does not use Additional living arrangements comments: PT CURRENTLY LIVING WITH SPOUSE (MARLON) AND CHILDERN 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 HEAD: Normocephalic, atraumatic. EYES: PERRLA and EOMI. ENT: Nares clear, no rhinorrhea or epistaxis. Mucous membranes moist. NECK: Supple. CHEST: Clear to auscultation. No respiratory distress. HEART: Regular rate and rhythm. No murmur heard. Normal peripheral pulses. ABDOMEN: Soft, nontender, nondistended, normal active bowel sounds. EXTREMITIES: Normal range of motion. No edema. SKIN: Warm, dry, no rash. NEURO: No focal deficits. Alert and oriented x3. PSYCH
[2022-06-05 00:24] LABS: Bacteria Urine Trace /hpf; Mucus Urine Heavy /lpf; RBC Urine 0-2 /hpf (0-2); Squamous Epithelial Cell Urine Few /hpf (Few); WBC Urine 0-3 /hpf
[2022-06-05 00:25] LABS: Add Urine Microscopic? YES; Appearance Urine Clear (Clear); Bilirubin Urine Negative (Negative); Blood Urine Negative (Negative); Color Urine Yellow (Yellow); Glucose Urine UA Negative (Negative); Ketones Urine Negative (Negative); Leukocyte Esterase Ur Negative LEU/UL (Negative); Nitrate Urine Negative (Negative); Protein Urine 2+ mg/dL (Negative); Specific Grav Ur >= 1.030 (1.001-1.035); Urobilinogen Urine 0.2 mg/dL (<2.0)
[2022-06-05 00:50] VITALS: BP 106/63; PULSE 103; RESP 15; O2SAT 100
== END 2022-06-05 00:50 | disposition home or self-care (01) ==
PROVIDERS: Emergency Provider Emergency Medicine; PCP Family Medicine
DX: E86.0 Dehydration (principal); M19.90 Unspecified osteoarthritis, unspecified site; K21.9 Gastro-esophageal reflux disease without esophagitis; G47.30 Sleep apnea, unspecified; F17.290 Nicotine dependence, other tobacco product, uncomplicated
CPT/HCPCS: 36415; 80053; 81001; 83690; 83735; 85025; 96361; 96374; 99284; J2405; J7030

== ENCOUNTER 2022-06-05 15:26 | Inpatient (IN) | payer OTHER, MEDICAID, SELFPAY ==
[2022-05-28 11:42] VITALS: BP 124/84; PULSE 90; RESP 18; TEMP 37.4; O2SAT 97; BMI 31.3
--- NOTE | 2022-05-28 11:42 | PC.NURSE ---
PRE-OP INSTRUCTIONS, PLEASE READ CAREFULLY Report to the Outpatient Waiting Room, entrance under the green pavilion located off [facility], at time _1000_ on date _06/05/22_. Planned Procedure Time: _1200_. PACK A SMALL OVERNIGHT BAG AND LEAVE IN THE CAR Time changes happen often and if your time is changed the preop area will call you the afternoon before. - You and your visitor will be asked to self-screen and do not enter if you have any COVID symptoms. - We encourage only one visitor and NO visitors under age 16 are allowed at this time. Your visitor will receive communication by the phone number that is given day of service. - The patient visitor is requested to social distance or may leave the building when not with patient due to restrictions. - A mask is required within the hospital. -VISITING HOURS 8AM-8PM Patients may have clear liquids (water, carbonated beverages, clear teas, apple juice) until 3 hours prior to surgery (0900 AM) with a maximum of 20 ounces. - No food from midnight until time of surgery Take the following medications with a SIP of water the morning of surgery: _LAMOTRIGINE_ Medications to discontinue per physician __N/A_, Date to take last dose Please no make-up, nail yi, hairspray, perfume, deodorant, or body powder the day of surgery. No jewelry (including any body piercings) or valuables the day of surgery, leave them at home. Please take a shower or bath the night before, or the morning of, surgery with an antibacterial soap. Wear comfortable, loose fitting clothing. - Jewelry must be removed prior to entering the operating room. Rings and piercings that are not removed may be cut off. - The hospital will not accept responsibility for valuables. - Please leave all valuables, including medications, at home the day of surgery. If you are going home after surgery, a licensed hook up driver must drive you home. - NO public transportation without another adult. - We recommend that an adult stay with you for 24 hours following discharge. - We also recommend that you do not drive, make important decision, drink alcoholic beverages, or take any drugs that were not prescribed by your health care provider for at least 24 hours after your discharge time. Follow any additional instructions given to you from your surgeon. DIET, BOWEL PREP, PRE-OP ANTIBIOTICS, HIBICLENS SHOWER DAY BEFORE AND AM OF SURGERY If you or anyone in your household have experienced Covid symptoms in the past week, please notify your surgeon or the nurse liaison at the phone number below for possible testing. Instructions given to ____PT and asked if any additional questions and then verbalized understanding. Patient advised to call surgeon office or pre surgery nurse liaison [phone] if any additional questions.
--- NOTE | 2022-05-28 13:31 | PC.NURSE ---
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 SUICIDE & CRISIS LIFELINE GIVEN TO PT ALONG WITH CONTACTING SPOUSE'S PCP FOR REFERRAL. INFORMED TO CALL 911 IF EVER FEELS SPOUSE IS A DANGER TO HER OR HIMSELF - UNDERSTANDING VOICED.
[2022-06-05] VITALS (15 sets, daily range): BP systolic 100–140; BP diastolic 57–77; PULSE 90–110; RESP 12–20; TEMP 36.4–37.7; O2SAT 94–100; BMI 31.1
--- NOTE | ~2022-06-05 | CT_ITS ---
EXAMINATION: CT abdomen pelvis wo con DATE: 06/09/2022 11:59 INDICATION: Right lower quadrant abdominal pain TECHNIQUE: Computed tomography (CT) of the abdomen and pelvis was performed without intravenous contr ast. Automated exposure control and iterative reconstruction technique were employed. The dose-length product was 769.57 mGy-cm. COMPARISON: 03/14/2022 FINDINGS: Discoid atelectasis in the bilateral lower lobes. Heart size is normal. No pericardial or pleural eff usion. Cholecystectomy clips the gallbladder fossa. Liver, spleen, pancreas, bilateral adrenal glands and kidneys are normal. Small amount of gas in the otherwise normal-appearing bladder which may be r elated to recent Lr catheterization. IUD in expected position within the normal uterus. Interval partial colectomy with resection of a significant portion of the sigmoid colon with anastomo tic suture line in the deep pelvis. Mild diverticulosis along the remaining colon. Multiple air-fluid levels throughout the colon consistent with diarrhea. No dilated small bowel to suggest obstruction. There is prominent retroperitoneal stranding in the pelvis most prominent distal to the anastomosis centered about the rectum and distal sigmoid colon. There are few small collections of extraluminal g as within the fat surrounding the anastomosis but no drainable abscess. Minimal free fluid in the cul -de-sac. No more remote free intraperitoneal gas in the nondependent abdomen. Suture line at the tip the cecum likely related to an earlier appendectomy. A few residual small foci of likely postoperativ e gas within the anterior abdominal wall fat. No pathologically enlarged abdominal or pelvic lymphade nopathy. Mild scattered degenerative skeletal changes. IMPRESSION: 1. Postoperative changes of recent partial colectomy at the sigmoid colon with inflammatory stranding and a few small collections of gas in the region of the anastomosis but no evident drainable abscess . Could not exclude a leak at the anastomosis however there is still residual postoperative gas in th e abdominal wall fat suggesting this could also represent residual gas occurring at the time of surge ry. Reviewed, dictated and finalized at location A. ECT MANAGEMENT SPECIALIST IMPRESSION: 1. Postoperative changes of recent partial colectomy at the sigmoid colon with inflammatory stranding and a few small collections of gas in the region of the anastomosis but no evident drainable abscess. Could not exclude a leak at the a nastomosis however there is still residual postoperative gas in the abdominal w all fat suggesting this could also represent residual gas occurring at the time of surgery.
--- NOTE | ~2022-06-05 | XR_ITS ---
EXAM: XR abdomen obstructive series DATE: 06/08/2022 12:07 HISTORY: postop ileus. pain, abdominal tenderness . COMPARISON: 04/25/2017. FINDINGS: Cholecystectomy. IUD. Bowel anastomosis over the right lower quadrant. Linear scar/atelect asis in the lung bases. Multiple loops of minimally dilated large bowel, containing air-fluid levels, without gas in the distal bowel overlying the pelvis. Little to no small bowel gas identified. No or ganomegaly. No abnormal abdominal calcification. Regional bones and soft tissues normal for age. IMPRESSION: Mild large bowel dilation may represent bowel ileus versus partial/early obstruction. [facility] city of small bowel gas. Reviewed, dictated and finalized at [facility]. TENDER IMPRESSION: Mild large bowel dilation may represent bowel ileus versus partial/ early obstruction. Paucity of small bowel gas.
--- NOTE | 2022-06-05 10:47 | PM.IMHP ---
H&P: HPI History of Present Illness Date/Time: 06/05/22 10:47 Chief Complaint: recurrent diverticulitis Narrative: Mrs. Chow was initially seen in the office on 03/20/22 after being seen in ER on 03/14/22 with complaints of lower abdominal pain. CT at that time showed uncomplicated sigmoid diverticulitis She reports having uncomplicated intermittent episodes since her last visit.? I had recommended she get colonoscopy & return to office to discuss next plan of treatment.? Colonoscopy was performed at [facility] [place] on 04/10/[address] Holcomb. Cecum was normal, no ulcers, lesions or masses were seen. Right colon showed a small polyp which was removed using cold biopsy forcep. Left colon was normal. Sigmoid colon revealed significant diverticulosis starting at roughly 40 cm from anal verge & working down towards distal sigmoid. No masses were seen, no active inflammation was seen. Pathology showed benign lymphoid aggregate, no adenomatous or hyperplastic change. Review of Systems Review of Systems: All systems reviewed & are unremarkable except as noted in HPI and below PMFSH Past Medical History Medical History Abnormal endoscopy of upper gastrointestinal tract Arthritis BMI 31.0-31.9,adult BMI 32.0-32.9,adult BMI 34.0-34.9,adult BMI 37.0-37.9, adult Chronic back pain Chronic headaches Depression Diverticulitis Diverticulosis Gallbladder disease GERD (gastroesophageal reflux disease) Hemorrhoids Hypertension Ovarian cyst Seizures Sleep apnea Uterine fibroid Surgical History Surgical History H/O dilation and curettage H/O endoscopy H/O vein stripping History of appendectomy Hx of cholecystectomy Previous section Family History Family History Father Heart disease Hypertension Diabetes mellitus Mother Diabetes mellitus Heart disease Sibling No problems noted. Grandparent Breast cancer Social History Social History Smoking packs per day: 1 Smoking cigarettes per day: 20.0 Years smoked: 7 Smoking pack-years: 7.00 Smoking status: Former smoker Tobacco type: cigarettes and e-cigarettes/vaping Second hand tobacco smoke exposure: Yes (SPOUSE) Additional smoking assessment comments: STATES QUIT SMOKING 2001, STARTED BACK UP 3 MONTHS-QUIT 02/2022, VAPES DAILY Alcohol intake: current Drinks per week: 1 Alcohol use details: social Substance use: never Substance use type: does not use Living arrangements: with family Additional living arrangements comments: PT CURRENTLY LIVING WITH SPOUSE (MARLON) AND CHILDERN 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 Gender identity (if verbalized by the patient): Female Sexual Orientation (if Verbalized by the Patient): Straight or Heterosexual Spiritual care concerns: No Meds Home Medications and Allergies Home Medications Medication Instructions Recorded Confirmed Type lamotrigine 150 mg tablet 150 mg PO BID #60 tabs 03/29/21 05/28/22 Rx cholecalciferol (vitamin D3) 1,250 50,000 unit PO WEEKLY #8 caps 04/18/22 05/28/22 Rx mcg (50,000 unit) capsule amitriptyline 10 mg tablet See Rx Instructions .Route 05/20/22 05/28/22 Rx .COMPLEX #30 tabs erythromycin 500 mg tablet 1 g PO .COMPLEX #6 tabs 05/21/22 05/28/22 Rx neomycin 500 mg tablet 1 g PO .COMPLEX #6 tabs 05/21/22 05/28/22 Rx loratadine 10 mg tablet (Claritin) 10 mg PO DAILY PRN Congestion 05/28/22 05/28/22 History losartan 100 mg tablet 100 mg PO DAILY #90 tabs 06/05/22 Rx Allergies Allergy/AdvReac Type Severity Reaction Status Date / Time Penicillins Allergy Rash Verified 05/28/22 12:52 shrimp Allergy Rash Verified 05/28/22 12:52 wheat AdvReac Severe Abdominal Verified 05/28/22 12:52 Pain iodine AdvRea
--- NOTE | 2022-06-05 10:50 | WPDHPUPDATE1 ---
History and Physical Update Update Date/Time: 06/05/22 10:50 History and Physical has been reviewed, including an updated exam of the patient. There are NO changes in the patient's condition. Risks, benefits, and alternatives have been discussed and questions answered. Patient agrees to proceed with procedure.
[2022-06-05] MEDS: LACTATED RINGERS 1,000 ML 30 ML IV CONT ×3 (11:00→17:40)
[2022-06-05] MEDS: KETOROLAC 15 MG/ML VIAL (*BKC) IV PUSH (11:10)
[2022-06-05] MEDS: ACETAMINOPHEN 500 MG TABLET 1000 MG PO (11:10)
--- NOTE | 2022-06-05 11:29 | SUR.PREOP ---
1128- Notified patient and spouse, Herrera procedure start time will be delayed. Patient and spouse verbalized understanding.
--- NOTE | 2022-06-05 11:53 | WPDANESEPPF ---
Anes - Initial Pre Proc Eval Procedure: Operation Date: 06/05/22 12:00 Proposed Procedures p Hand Assisted Laparoscopic Sigmoid Colectomy - Jessica Garcia MD Date/Time: 06/05/22 11:53 Surgeon: Jessica Garcia MD Pre Op Diagnosis: recurrent diverticulitis Patient Data Age: 41 Gender: F Height: 1.73 m Weight: 92.8 kg Last Vital Signs Temp 98.6 F 06/05/22 10:15 Pulse 90 06/05/22 10:15 Resp 16 06/05/22 10:15 BP 111/69 06/05/22 10:15 Pulse Ox 100 06/05/22 10:15 O2 Del Method Room Air 06/05/22 10:15 Allergies Allergy/AdvReac Type Severity Reaction Status Date / Time Penicillins Allergy Rash Verified 06/05/22 11:17 shrimp Allergy Rash Verified 06/05/22 11:17 wheat AdvReac Severe Abdominal Verified 06/05/22 11:17 Pain iodine AdvReac Intermediate sneezing Verified 06/05/22 11:17 irbesartan AdvReac hair loss Verified 06/05/22 11:17 Contrast Media AdvReac Mild SNEEZING Uncoded 05/28/22 12:52 Home Medications Medication Instructions Recorded Confirmed Type lamotrigine 150 mg tablet 150 mg PO BID #60 tabs 03/29/21 05/28/22 Rx cholecalciferol (vitamin D3) 1,250 50,000 unit PO WEEKLY #8 caps 04/18/22 06/05/22 Rx mcg (50,000 unit) capsule amitriptyline 10 mg tablet See Rx Instructions .Route 05/20/22 05/28/22 Rx .COMPLEX #30 tabs erythromycin 500 mg tablet 1 g PO .COMPLEX #6 tabs 05/21/22 06/05/22 Rx neomycin 500 mg tablet 1 g PO .COMPLEX #6 tabs 05/21/22 06/05/22 Rx loratadine 10 mg tablet (Claritin) 10 mg PO DAILY PRN Congestion 05/28/22 05/28/22 History losartan 100 mg tablet 100 mg PO DAILY #90 tabs 06/05/22 Rx Patient hx anesthesia problems: none and other (s;ow to wake up) Family hx anesthesia problems: none Results Review: All pre-operative results and documents have been reviewed as part of the pre-operative evaluation. [facility] Past Medical History Medical History Abnormal endoscopy of upper gastrointestinal tract Arthritis BMI 31.0-31.9,adult BMI 32.0-32.9,adult BMI 34.0-34.9,adult BMI 37.0-37.9, adult Chronic back pain Chronic headaches Depression Diverticulitis Diverticulosis Gallbladder disease GERD (gastroesophageal reflux disease) Hemorrhoids Hypertension Ovarian cyst Seizures Sleep apnea Uterine fibroid Surgical History Surgical History H/O dilation and curettage H/O endoscopy H/O vein stripping History of appendectomy Hx of cholecystectomy Previous section Family History Family History Father Heart disease Hypertension Diabetes mellitus Mother Diabetes mellitus Heart disease Sibling No problems noted. Grandparent Breast cancer Social History Social History Smoking packs per day: 1 Smoking cigarettes per day: 20.0 Years smoked: 7 Smoking pack-years: 7.00 Smoking status: Former smoker Tobacco type: cigarettes and e-cigarettes/vaping Second hand tobacco smoke exposure: Yes (SPOUSE) Additional smoking assessment comments: STATES QUIT SMOKING 2001, STARTED BACK UP 3 MONTHS-QUIT 02/2022, VAPES DAILY Alcohol intake: current Drinks per week: 1 Alcohol use details: social Substance use: never Substance use type: does not use Living arrangements: with family Additional living arrangements comments: PT CURRENTLY LIVING WITH SPOUSE (MARLON) AND CHILDERN 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
[2022-06-05] MEDS: ceFAZolin 2 GM/D5W 50 ML 2 GM/50 ML BAG IVPB (12:49)
[2022-06-05] MEDS: metroNIDAZOLE 500 MG/ISO 100ML 500 MG/100 ML BAG 100 MG IVPB ×2 (12:54→18:34)
[2022-06-05] MEDS: BUPIVACAINE/EPINEPHRINE 0.25% 50 ML VIAL INFILTRATE (13:00)
--- NOTE | 2022-06-05 14:53 | SUR.OPER ---
MALECOT CATHETER 36F INSERTED INTO RECTUM WITH PREP. REMOVED BY IT LEAD IN PREPARATION OF ANASTOMOSIS.
--- NOTE | 2022-06-05 15:28 | W.PM.PROC2 ---
Procedure Note - Detailed Date of Procedure 06/05/22 Pre-op Diagnosis recurrent diverticulitis Post-op Diagnosis Same Procedure Performed hand assisted laparoscopic sigmoid colectomy with mobilization of the splenic flexure Surgeon Jessica Garcia MD Structural Technician Dr. Carlitos Lamb, DO Anesthesia General Indications 41-year-old female with multiple episodes recurrent uncomplicated acute diverticulitis Findings sigmoid colon diverticulitis with multiple areas of diverticula extending to about 40 cm from the anal verge Description of Procedure The patient was taken to the operating room and placed in the modified lithotomy position. After adequate induction of general anesthesia, the patient was prepped and draped in the normal sterile fashion. A time-out was then done to verify the patient's identity, as well as the procedure being performed. I began by making a hand port incision around the umbilicus. This incision was carried down into the peritoneal cavity and no adhesions were noted. At this point, the hand port was placed and the abdomen was insufflated. I then placed a trocar through this site and under direct visualization placed a 5 mm and 12 mm ports in the right lower abdomen. There were some adhesions of the small bowel to the pelvis and these were taken down with the LigaSure device. I was then able to sweep the small bowel out of the operative field. I then identified an area of acute smoldering diverticulitis in the sigmoid colon. This was noted to be in the mid sigmoid approximately 30 cm from the anal verge. There was diverticulae noted throughout the sigmoid colon to about 40 cm from the anal verge. I then mobilized the proximal colon to gain adequate length for our anastomosis. I took down the white line of Toldt laterally along the sigmoid and descending colon. In order to insure adequate length I went ahead and mobilized the splenic flexure as well. I then began dissection of the sigmoid colon itself. I used a medial to lateral approach 1st identifying the left colic vessels. The left colic vessels were identified at the base the mesentery. I was able to visualize the left ureter at this point as well and this was noted to be posterior and out of the way. I then took down the left colic vessels using the LigaSure device. I then carried this dissection plane inferiorly to the level of the distal sigmoid upper rectum. I then dissected laterally by taking down the white line of Toldt in this area. Also dissected around the area of the distal sigmoid and upper rectum. I was then able to get around circumferentially in the distal sigmoid upper rectal area. I then transected the distal sigmoid with upper rectum using a echelon stapler. Of note this did take 2 staple loads. At this point I was able to extracorporealyze the specimen. I then again was able to identify the inflamed area and noted adequate colon distal and proximal to this area. I then found an area proximal to this area approximately 40 cm from the anal verge that did not have any diverticular disease to transect the proximal sigmoid colon. This was done with the cautery. I then prepared the proximal colon for our colorectal anastomosis. Using the EEA sizers, it was noted a 28 EEA stapler would be used for the anastomosis. I then used a auto pursestring device after transecting the proximal colon and placing the 28 anvil in the proximal colon. We then reinsufflated the abdomen and noted adequate length of the proximal colon for our anastomosis. The rectum was then dilated 1st digitally then with the EEA sizers. Once adequately done, the 28 EEA stapler was placed through the rectum and brought out through the middle of the previous staple line. I then completed a 28 EEA colorectal anastomosis. We then did an air leak test using the proctoscope and no leak was noted. The anastomosis was noted to be widely patent and tension-free. I then examined the rest of the abd
[2022-06-05] MEDS: fentaNYL CITRATE INJ (*CRX) 100 MCG/2 ML VIAL 25 MCG IV PUSH ×8 (16:14→17:53)
--- NOTE | 2022-06-05 18:22 | ADMGEN ---
This patient, Devi Chow, was admitted to Medical Room 252-01. Patient/family oriented to hospital policies and general routines including ID bracelet, bed and alarms, visiting hours, pain management, procedures, bathroom and other care routines, personal items, smoking policy, room service/diet, and visiting hours. Information on how to activate the Rapid Response Team has been discussed. Patient/Family are encouraged to report perceived risks to care and to ask questions if they do not understand what they are told or what they should do.
[2022-06-05] MEDS: lamoTRIgine 50 MG TABLET PO (18:33)
[2022-06-05] MEDS: lamoTRIgine 100 MG TABLET PO (18:34)
[2022-06-05] MEDS: LACTATED RINGERS 1,000 ML 100 ML IV CONT (18:38)
[2022-06-05] MEDS: MORPHINE SULFATE (*CRX) 2 MG/ML INJ IV PUSH (18:53)
[2022-06-05] MEDS: ONDANSETRON INJ 4 MG/2 ML VIAL IV PUSH (20:40)
[2022-06-05] MEDS: AMITRIPTYLINE HCL 10 MG TABLET PO (23:04)
[2022-06-06] MEDS: LORATADINE 10 MG TABLET PO ×2 (00:20→20:17)
[2022-06-06] MEDS: HYDROcodone/acetaminophen (*CRX) 5-325 MG TABLET 1 TAB PO ×3 (00:20→09:41)
[2022-06-06] MEDS: metroNIDAZOLE 500 MG/ISO 100ML 500 MG/100 ML BAG 100 MG IVPB ×5 (00:21→23:47)
[2022-06-06 03:49] VITALS: BP 118/72; PULSE 102; RESP 20; TEMP 36.6; O2SAT 97
[2022-06-06 06:38] LABS: Basophils Percent Auto 0.2 % (0.2-1.2); Eosinophils Percent Auto 0.1 % (0-4.4); Hematocrit 34.2 % (37.0-47.0); Hemoglobin 11.7 g/dL (12.0-15.0); Immature Granulocyte Absolute 0.09 K/mm3 (0.00-0.031); Immature Granulocyte Percent A 0.5 % (0-0.5); Lymphocytes Absolute Auto 1.07 K/mm3 (0.9-3.2); Lymphocytes Percent Auto 6.4 % (18.3-44.2); Mean Corpuscular HGB Conc 34.2 g/dl (32-36); Mean Corpuscular Hemoglobin 31.2 pg (26-34); Mean Corpuscular Volume 91.2 fl (80-100); Mean Platelet Volume 9.5 fl (7.4-10.4); Monocytes Absolute Auto 0.7 K/mm3 (0.1-0.6); Monocytes Percent Auto 3.9 % (2.6-8.5); Neutrophils Percent Auto 88.9 % (45.5-73.1); Platelet Count Result 296 k/mm3 (150-375); Red Blood Count 3.75 M/mm3 (4.2-5.4); White Blood Count 16.8 K/mm3 (4.5-10.0)
[2022-06-06 07:00] LABS: Anion Gap 12 mmol/L (8-16); Blood Urea Nitrogen 6 mg/dL (7-17); Calcium 8.7 mg/dL (8.4-10.2); Carbon Dioxide 23 mmol/L (22-30); Chloride 102 mmol/L (98-107); Estimated CRCL calculation 127 ml/min; Estimated Glomerular Filt Rate > 60; Glucose 98 mg/dL (65-110); Potassium 3.8 mmol/L (3.4-5.0); Sodium 137 mmol/L (137-145)
--- NOTE | 2022-06-06 08:05 | P.PNAN_ITS ---
Anes - Prog Note Post-Op Date/Time: 06/06/22 08:05 Vital Signs: Last Vital Signs Temp 36.6 C 06/06/22 03:49 Pulse 102 H 06/06/22 03:49 Resp 20 06/06/22 03:49 BP 118/72 06/06/22 03:49 Pulse Ox 97 06/06/22 03:49 O2 Del Method Room Air 06/05/22 20:00 O2 Flow Rate 2 06/05/22 18:00 Pain Score (VAS): 0 I/O: Intake & Output 06/05/22 06/06/22 06/06/22 23:59 07:59 15:59 Intake Total 1450 750 Output Total 100 300 Balance 1350 450 Laboratory Tests 06/06/22 05:26 06/06/22 05:26 06/06/22 06/06/22 05:26 05:26 WBC 16.8 H RBC 3.75 L Hgb 11.7 L Hct 34.2 L MCV 91.2 MCH 31.2 MCHC 34.2 RDW 12.0 Plt Count 296 MPV 9.5 Immature Gran % (Auto) 0.5 Neut % (Auto) 88.9 H Lymph % (Auto) 6.4 L [place] % (Auto) 3.9 Eos % (Auto) 0.1 Baso % (Auto) 0.2 Lymph # (Auto) 1.07 [place] # (Auto) 0.7 H Eos # (Auto) 0.0 Baso # (Auto) 0.0 Abs Immat Gran (auto) 0.09 H Absolute Neuts (auto) 15.0 H Absolute Nucleated RBC 0.0 Nucleated RBC % 0.0 Sodium 137 Potassium 3.8 Chloride 102 Carbon Dioxide 23 Anion Gap 12 BUN 6 L Creatinine 0.60 L Estim Creat Clear Calc 127 Estimated GFR > 60 Glucose 98 Calcium 8.7 Patient Feedback: Patient satisfied with anesthetic care.
[2022-06-06] MEDS: ENOXAPARIN 40 MG/0.4 ML SYRINGE SUB-Q (08:13)
[2022-06-06] MEDS: PANTOPRAZOLE 40 MG TABLET PO (08:13)
[2022-06-06] MEDS: LACTATED RINGERS 1,000 ML 100 ML IV CONT ×2 (09:45→23:47)
--- NOTE | 2022-06-06 11:02 | PM.PNGS ---
Progress Note: A&P Assessment and Plan (1) Diverticulitis: Code(s): K57.92 - Diverticulitis of intestine, part unspecified, without perforation or abscess without bleeding Status: Acute Assessment and Plan: doing well, slowly ADAT, await bowel fxn, encourage OOB/IS Subjective Subjective Date/Time Seen: 06/06/22 11:02 feels good, some incisional soreness, magdiel clears Review of Systems Review of Systems: All systems reviewed & are unremarkable except as noted in HPI and below Exam Const: General: cooperative, comfortable and no acute distress Resp: Auscultation: clear to auscultation bilaterally Cardio: Rate: regular rate Rhythm: regular rhythm GI: Inspection: normal to inspection, distended and incision GI Palp: Yes abdominal tenderness, Yes Soft to palpation, Yes Tenderness to palpation present (GI), No Guarding due to palpation present (GI) and No Rigid due to palpation Objective Data Vital Signs Vital Signs: Vital Signs - 24 hr 06/05/22 15:36 06/05/22 15:50 06/05/22 16:15 Temperature 37.7 C H Pulse Rate 100 102 H 100 Respiratory Rate 14 12 16 Blood Pressure 118/66 140/77 100/72 Pulse Oximetry 100 100 100 Oxygen Delivery Simple Face Mask Simple Face Mask Simple Face Mask Oxygen Flow Rate 8 8 8 06/05/22 16:30 06/05/22 16:45 06/05/22 17:00 Temperature Pulse Rate 97 98 105 H Respiratory Rate 12 12 12 Blood Pressure 129/75 125/77 120/70 Pulse Oximetry 100 98 98 Oxygen Delivery Nasal Cannula Nasal Cannula Nasal Cannula Oxygen Flow Rate 2 2 2 06/05/22 17:15 06/05/22 17:30 06/05/22 17:45 Temperature Pulse Rate 105 H 102 H 104 H Respiratory Rate 12 12 14 Blood Pressure 110/66 118/64 119/72 Pulse Oximetry 98 95 94 Oxygen Delivery Nasal Cannula Nasal Cannula Nasal Cannula Oxygen Flow Rate 2 2 2 06/05/22 18:00 06/05/22 19:49 06/05/22 18:40 Temperature 36.4 C 36.9 C Pulse Rate 108 H 101 H 110 H Respiratory Rate 18 12 20 Blood Pressure 114/66 108/60 113/57 L Pulse Oximetry 99 98 97 Oxygen Delivery Nasal Cannula Oxygen Flow Rate 2 06/05/22 20:00 06/05/22 23:49 06/06/22 03:49 Temperature 36.6 C 36.6 C Pulse Rate 93 102 H Respiratory Rate 20 20 Blood Pressure 115/64 118/72 Pulse Oximetry 95 98 97 Oxygen Delivery Room Air Oxygen Flow Rate 06/06/22 08:20 Temperature Pulse Rate Respiratory Rate Blood Pressure Pulse Oximetry Oxygen Delivery Room Air Oxygen Flow Rate Intake/Output Intake/Output: Intake & Output 06/03/22 06/04/22 06/05/22 06/06/22 23:59 23:59 23:59 23:59 Intake Total 1600 2110 Output Total 100 2075 Balance 1500 35 Meds/Results Medications: Active Medications Generic Name Dose Route Start Last Admin Trade Name Freq PRN Reason Stop Dose Admin Hydrocodone Bitart/Acetaminophen 1 tab 06/05/22 18:04 06/06/22 09:41 Hydrocodone/Acetaminophen (*Crx) 5-325 Mg Tablet PO 1 tab Q4H PRN Administration Pain Rated 4-6 Alvimopan 12 mg 06/06/22 21:00 Alvimopan 12 Mg Capsule PO 06/13/22 20:59 Q12HR BRIANA Amitriptyline HCl 10 mg 06/05/22 21:00 06/05/22 23:04 Amitriptyline Hcl 10 Mg Tablet PO 10 mg HS BRIANA Administration Enoxaparin Sodium 40 mg 06/06/22 09:00 06/06/22 08:13 Enoxaparin 40 Mg/0.4 Ml Syringe SUB-Q 40 mg DAILY BRIANA Administration Ergocalciferol 50,000 units 06/07/22 22:00 Ergocalciferol 50,000 Units Capsule PO FR@2200 BRIANA Levofloxacin/Dextrose 750 mg in 150 mls @ 100 mls/hr 06/05/22 19:00 06/05/22 22:10 Levaquin 750 Mg/D5w 150 Ml IVPB Infused Q24H BRIANA Infusion Metronidazole 500 mg in 100 mls @ 100 mls/hr 06/05/22 18:00 06/06/22 06:33 Flagyl 500 Mg/Iso Soln 100 Ml IVPB Infused Q6H BRIANA Infusion Lactated Ringer's 1,000 mls @ 100 mls/hr 06/05/22 18:04 06/06/22 09:45 Lr - Lactated Ringers Iv IV CONT 100 mls/hr .Q10H BRIANA Administration Ketorolac Tromethamine 30 mg 06/05/22 18:04 Ketorolac 30 Mg/Ml Vial (*B
[2022-06-06 12:40] VITALS: BP 127/76; PULSE 94; RESP 18; TEMP 36.8; O2SAT 98
--- NOTE | 2022-06-06 13:35 | PC.NURSE ---
On 06/06/22, the student, [Abeba Lozoya], provided care and completed [facility] documentation on this patient. I have reviewed the student's documentation and agree with the findings.
[2022-06-06 17:08] VITALS: BP 128/78; PULSE 75; RESP 18; TEMP 36.5; O2SAT 98
[2022-06-06 18:36] VITALS: BP 143/64; PULSE 74; RESP 18; TEMP 36.4; O2SAT 95
[2022-06-06] MEDS: ALVIMOPAN 12 MG CAPSULE PO (20:17)
[2022-06-06] MEDS: lamoTRIgine 100 MG TABLET PO (20:18)
[2022-06-06] MEDS: AMITRIPTYLINE HCL 10 MG TABLET PO (20:18)
[2022-06-06 23:44] VITALS: BP 124/73; PULSE 94; RESP 16; TEMP 36.4; O2SAT 96
[2022-06-07 05:07] VITALS: BP 132/84; PULSE 98; RESP 14; TEMP 36.9; O2SAT 97
[2022-06-07] MEDS: metroNIDAZOLE 500 MG/ISO 100ML 500 MG/100 ML BAG 100 MG IVPB ×4 (05:08→23:44)
[2022-06-07 06:31] LABS: Anion Gap 8 mmol/L (8-16); Blood Urea Nitrogen 8 mg/dL (7-17); Calcium 8.5 mg/dL (8.4-10.2); Carbon Dioxide 27 mmol/L (22-30); Chloride 102 mmol/L (98-107); Estimated CRCL calculation 111 ml/min; Estimated Glomerular Filt Rate > 60; Glucose 87 mg/dL (65-110); Potassium 3.4 mmol/L (3.4-5.0); Sodium 137 mmol/L (137-145)
[2022-06-07 06:33] LABS: Hematocrit 30.5 % (37.0-47.0); Hemoglobin 10.4 g/dL (12.0-15.0); Mean Corpuscular HGB Conc 34.1 g/dl (32-36); Mean Corpuscular Hemoglobin 31.8 pg (26-34); Mean Corpuscular Volume 93.3 fl (80-100); Mean Platelet Volume 9.5 fl (7.4-10.4); Platelet Count Result 249 k/mm3 (150-375); Red Blood Count 3.27 M/mm3 (4.2-5.4); White Blood Count 9.9 K/mm3 (4.5-10.0)
[2022-06-07] MEDS: ALVIMOPAN 12 MG CAPSULE PO ×2 (08:28→21:07)
[2022-06-07] MEDS: PANTOPRAZOLE 40 MG TABLET PO (08:28)
[2022-06-07] MEDS: ENOXAPARIN 40 MG/0.4 ML SYRINGE SUB-Q (08:29)
[2022-06-07 10:27] VITALS: BP 116/75; PULSE 98; RESP 17; TEMP 36.5; O2SAT 99
--- NOTE | 2022-06-07 12:55 | PC.NURSE ---
On 06/07/22, the student, [Abeba Lozoya], provided care and completed [facility] documentation on this patient. I have reviewed the student's documentation and agree with the findings.
[2022-06-07 14:16] VITALS: BP 125/67; PULSE 94; RESP 18; TEMP 37.2; O2SAT 100
[2022-06-07] MEDS: HYDROcodone/acetaminophen (*CRX) 5-325 MG TABLET 1 TAB PO (14:35)
--- NOTE | 2022-06-07 15:10 | PM.PNGS ---
Progress Note: A&P Assessment and Plan (1) Diverticulitis: Code(s): K57.92 - Diverticulitis of intestine, part unspecified, without perforation or abscess without bleeding Status: Acute Assessment and Plan: Continue full liquid diet as tolerated. Will wait to advance diet until her abdominal distention improves. Continue to monitor. Subjective Subjective Date/Time Seen: 06/07/22 15:10 Interval history: Patient had a couple BMs. Still feeling bloated and not much appetite. Even drinking Ensure drink makes her feel full and more bloated. Pain controlled. Ambulating in halls. No fevers. Exam GI: Inspection: distended and incision (intact with glue) GI Palp: Yes Soft to palpation and Yes Tenderness to palpation present (GI) (incisional) Percussion: Yes tympanic to percussion Objective Data Vital Signs Vital Signs: Vital Signs - 24 hr 06/06/22 17:08 06/06/22 18:36 06/06/22 20:00 Temperature 36.5 C 36.4 C Pulse Rate 75 74 Respiratory Rate 18 18 Blood Pressure 128/78 143/64 H Pulse Oximetry 98 95 Oxygen Delivery Room Air 06/06/22 23:44 06/07/22 05:07 06/07/22 08:35 Temperature 36.4 C 36.9 C Pulse Rate 94 98 Respiratory Rate 16 14 Blood Pressure 124/73 132/84 Pulse Oximetry 96 97 Oxygen Delivery Room Air 06/07/22 10:27 06/07/22 14:16 Temperature 36.5 C 37.2 C Pulse Rate 98 94 Respiratory Rate 17 18 Blood Pressure 116/75 125/67 Pulse Oximetry 99 100 Oxygen Delivery Intake/Output Intake/Output: Intake & Output 06/04/22 06/05/22 06/06/22 06/07/22 23:59 23:59 23:59 23:59 Intake Total 1600 4405 1890 Output Total 100 2575 Balance 1500 1830 1890 Meds/Results Medications: Active Medications Generic Name Dose Route Start Last Admin Trade Name Freq PRN Reason Stop Dose Admin Hydrocodone Bitart/Acetaminophen 1 tab 06/05/22 18:04 06/07/22 14:35 Hydrocodone/Acetaminophen (*Crx) 5-325 Mg Tablet PO 1 tab Q4H PRN Administration Pain Rated 4-6 Alvimopan 12 mg 06/06/22 21:00 06/07/22 08:28 Alvimopan 12 Mg Capsule PO 06/13/22 20:59 12 mg Q12HR BRIANA Administration Amitriptyline HCl 10 mg 06/05/22 21:00 06/06/22 20:18 Amitriptyline Hcl 10 Mg Tablet PO 10 mg HS BRIANA Administration Enoxaparin Sodium 40 mg 06/06/22 09:00 06/07/22 08:29 Enoxaparin 40 Mg/0.4 Ml Syringe SUB-Q 40 mg DAILY BRIANA Administration Ergocalciferol 50,000 units 06/07/22 22:00 Ergocalciferol 50,000 Units Capsule PO FR@2200 BRIANA Levofloxacin/Dextrose 750 mg in 150 mls @ 100 mls/hr 06/05/22 19:00 06/06/22 20:45 Levaquin 750 Mg/D5w 150 Ml IVPB Infused Q24H BRIANA Infusion Metronidazole 500 mg in 100 mls @ 100 mls/hr 06/05/22 18:00 06/07/22 11:19 Flagyl 500 Mg/Iso Soln 100 Ml IVPB 100 mls/hr Q6H BRIANA Administration Lactated Ringer's 1,000 mls @ 100 mls/hr 06/05/22 18:04 06/07/22 05:07 Lr - Lactated Ringers Iv IV CONT Not Given .Q10H BRIANA Ketorolac Tromethamine 30 mg 06/05/22 18:04 Ketorolac 30 Mg/Ml Vial (*Bkc) IV PUSH 06/10/22 18:03 Q6H PRN Pain Rated 4-6 Lamotrigine 100 mg 06/06/22 21:00 06/06/22 20:18 Lamotrigine 100 Mg Tablet PO 07/05/22 18:03 100 mg HS BRIANA Administration Loratadine 10 mg 06/05/22 23:50 06/06/22 20:17 Loratadine 10 Mg Tablet PO 10 mg HS BRIANA Administration Morphine Sulfate 2 mg 06/05/22 18:04 06/05/22 18:53 Morphine Sulfate (*Crx) 2 Mg/Ml Inj IV PUSH 2 mg Q2H PRN Administration Pain Rated 4-6 Morphine Sulfate 4 mg 06/05/22 18:04 Morphine Sulfate (*Crx) 4 Mg/Ml Inj IV PUSH Q2H PRN Pain Rated 7-10 Naloxone HCl 0.1 mg 06/05/22 18:04 Naloxone Hcl 0.4 Mg/Ml Vial IV PUSH Q2M PRN Opiate Reversal Ondansetron HCl 4 mg 06/05/22 18:04 06/05/22 20:40 Ondansetron Inj 4 Mg/2 Ml Vial IV PUSH 4 mg Q4H PRN Administration Nausea And Vomiting Pantoprazole Sodium 40 mg 06/06/22 09:00 06/07/22 08:
[2022-06-07] MEDS: LACTATED RINGERS 1,000 ML 100 ML IV CONT (16:01)
[2022-06-07 18:05] VITALS: BP 120/85; PULSE 94; RESP 17; TEMP 37.2; O2SAT 100
[2022-06-07 20:08] VITALS: BP 136/79; PULSE 107; RESP 20; TEMP 36.3; O2SAT 92
[2022-06-07] MEDS: ERGOCALCIFEROL 50,000 UNITS CAPSULE 50000 UNITS PO (21:06)
[2022-06-07] MEDS: lamoTRIgine 100 MG TABLET PO (21:06)
[2022-06-07] MEDS: AMITRIPTYLINE HCL 10 MG TABLET PO (21:07)
[2022-06-07] MEDS: LORATADINE 10 MG TABLET PO (21:07)
[2022-06-07] MEDS: KETOROLAC 30 MG/ML VIAL (*BKC) IV PUSH (21:11)
[2022-06-07 23:27] VITALS: BP 137/76; PULSE 104; RESP 20; TEMP 36.1; O2SAT 100
[2022-06-08 03:28] VITALS: BP 134/76; PULSE 100; RESP 20; TEMP 37.4; O2SAT 97
[2022-06-08] MEDS: LACTATED RINGERS 1,000 ML 100 ML IV CONT ×2 (05:03→17:50)
[2022-06-08] MEDS: metroNIDAZOLE 500 MG/ISO 100ML 500 MG/100 ML BAG 100 MG IVPB ×4 (05:03→23:01)
[2022-06-08 05:52] LABS: Hemoglobin 11.1 g/dL (12.0-15.0); Mean Corpuscular HGB Conc 34.7 g/dl (32-36); Mean Corpuscular Hemoglobin 32.2 pg (26-34); Mean Corpuscular Volume 92.8 fl (80-100); Mean Platelet Volume 9.4 fl (7.4-10.4); Platelet Count Result 256 k/mm3 (150-375); Red Blood Count 3.45 M/mm3 (4.2-5.4); Red Cell Distribution Width 11.8 % (11.5-14.5); White Blood Count 15.4 K/mm3 (4.5-10.0)
[2022-06-08 06:05] LABS: Anion Gap 7 mmol/L (8-16); Blood Urea Nitrogen 6 mg/dL (7-17); CRP 6.2 mg/dL (<1.0); Calcium 8.6 mg/dL (8.4-10.2); Carbon Dioxide 25 mmol/L (22-30); Chloride 101 mmol/L (98-107); Estimated CRCL calculation 129 ml/min; Estimated Glomerular Filt Rate > 60; Glucose 112 mg/dL (65-110); Potassium 3.4 mmol/L (3.4-5.0); Sodium 133 mmol/L (137-145)
[2022-06-08] MEDS: ONDANSETRON INJ 4 MG/2 ML VIAL IV PUSH (08:20)
[2022-06-08] MEDS: ENOXAPARIN 40 MG/0.4 ML SYRINGE SUB-Q (08:20)
[2022-06-08] MEDS: HYDROcodone/acetaminophen (*CRX) 5-325 MG TABLET 1 TAB PO ×2 (08:20→21:11)
[2022-06-08] MEDS: PANTOPRAZOLE 40 MG TABLET PO (08:20)
[2022-06-08] MEDS: ALVIMOPAN 12 MG CAPSULE PO ×2 (08:20→21:12)
[2022-06-08 10:00] VITALS: BP 124/76; PULSE 108; RESP 20; TEMP 36.9; O2SAT 99
--- NOTE | 2022-06-08 10:52 | PM.PNGS ---
Progress Note: A&P Assessment and Plan (1) Diverticulitis: Code(s): K57.92 - Diverticulitis of intestine, part unspecified, without perforation or abscess without bleeding Status: Acute Assessment and Plan: WBC went up today and patient is slightly tachycardic. She also may be developing a postoperative ileus. Will back patient off to NPO except ice chips. Continue IV fluids. Will get obstructive series this morning. Subjective Subjective Date/Time Seen: 06/08/22 10:52 Post Op day: 3 Interval history: having more abdominal cramping in the lower suprapubic region today. Slightly tachycardic as well. Patient feeling some chills but no fevers. Passing much flatus but did slight liquid BM. No nausea or vomiting. Exam GI: Inspection: distended GI Palp: Yes Soft to palpation and Yes Tenderness to palpation present (GI) ( Suprapubic and upper abdominal) Auscultation: Hypoactive bowel sounds present Objective Data Vital Signs Vital Signs: Vital Signs - 24 hr 06/07/22 14:16 06/07/22 18:05 06/07/22 20:08 Temperature 37.2 C 37.2 C 36.3 C L Pulse Rate 94 94 107 H Respiratory Rate 18 17 20 Blood Pressure 125/67 120/85 136/79 Pulse Oximetry 100 100 92 Oxygen Delivery 06/07/22 20:00 06/07/22 23:27 06/08/22 03:28 Temperature 36.1 C L 37.4 C Pulse Rate 104 H 100 Respiratory Rate 20 20 Blood Pressure 137/76 134/76 Pulse Oximetry 100 97 Oxygen Delivery Room Air 06/08/22 08:20 06/08/22 10:00 Temperature 36.9 C Pulse Rate 108 H Respiratory Rate 20 Blood Pressure 124/76 Pulse Oximetry 99 Oxygen Delivery Room Air Intake/Output Intake/Output: Intake & Output 06/05/22 06/06/22 06/07/22 06/08/22 23:59 23:59 23:59 23:59 Intake Total 1600 4405 4720 1590 Output Total 100 2575 Balance 1500 1830 4720 1590 Meds/Results Medications: Active Medications Generic Name Dose Route Start Last Admin Trade Name Freq PRN Reason Stop Dose Admin Hydrocodone Bitart/Acetaminophen 1 tab 06/05/22 18:04 06/08/22 08:20 Hydrocodone/Acetaminophen (*Crx) 5-325 Mg Tablet PO 1 tab Q4H PRN Administration Pain Rated 4-6 Alvimopan 12 mg 06/06/22 21:00 06/08/22 08:20 Alvimopan 12 Mg Capsule PO 06/13/22 20:59 12 mg Q12HR BRINAA Administration Amitriptyline HCl 10 mg 06/05/22 21:00 06/07/22 21:07 Amitriptyline Hcl 10 Mg Tablet PO 10 mg HS BRIANA Administration Enoxaparin Sodium 40 mg 06/06/22 09:00 06/08/22 08:20 Enoxaparin 40 Mg/0.4 Ml Syringe SUB-Q 40 mg DAILY BRIANA Administration Ergocalciferol 50,000 units 06/07/22 22:00 06/07/22 21:06 Ergocalciferol 50,000 Units Capsule PO 50,000 units FR@2200 BRIANA Administration Levofloxacin/Dextrose 750 mg in 150 mls @ 100 mls/hr 06/05/22 19:00 06/07/22 20:20 Levaquin 750 Mg/D5w 150 Ml IVPB Infused Q24H BRIANA Infusion Metronidazole 500 mg in 100 mls @ 100 mls/hr 06/05/22 18:00 06/08/22 05:58 Flagyl 500 Mg/Iso Soln 100 Ml IVPB Infused Q6H BRIANA Infusion Lactated Ringer's 1,000 mls @ 100 mls/hr 06/05/22 18:04 06/08/22 05:03 Lr - Lactated Ringers Iv IV CONT 100 mls/hr .Q10H BRIANA Administration Ketorolac Tromethamine 30 mg 06/05/22 18:04 06/07/22 21:11 Ketorolac 30 Mg/Ml Vial (*Bkc) IV PUSH 06/10/22 18:03 30 mg Q6H PRN Administration Pain Rated 4-6 Lamotrigine 100 mg 06/06/22 21:00 06/07/22 21:06 Lamotrigine 100 Mg Tablet PO 07/05/22 18:03 100 mg HS BRIANA Administration Loratadine 10 mg 06/05/22 23:50 06/07/22 21:07 Loratadine 10 Mg Tablet PO 10 mg HS BRIANA Administration Morphine Sulfate 2 mg 06/05/22 18:04 06/05/22 18:53 Morphine Sulfate (*Crx) 2 Mg/Ml Inj IV PUSH 2 mg Q2H PRN Administration Pain Rated 4-6 Morphine Sulfate 4 mg 06/05/22 18:04 Morphine Sulfate (*Crx) 4 Mg/Ml Inj IV PUSH Q2H PRN Pain Rated 7-10 Naloxone HCl 0.1 mg 06/05/22 18:04 Naloxone Hcl 0.4 Mg/Ml Vial IV PUSH Q2M PRN
[2022-06-08 14:10] VITALS: BP 114/67; PULSE 93; RESP 18; TEMP 36.7; O2SAT 100
[2022-06-08 18:00] VITALS: BP 125/72; PULSE 98; RESP 20; TEMP 36.9; O2SAT 98
[2022-06-08] MEDS: MORPHINE SULFATE (*CRX) 4 MG/ML INJ IV PUSH (18:42)
[2022-06-08 19:21] VITALS: BP 112/75; PULSE 110; RESP 17; TEMP 37.1; O2SAT 99
[2022-06-08] MEDS: LORATADINE 10 MG TABLET PO (21:12)
[2022-06-08] MEDS: lamoTRIgine 100 MG TABLET PO (21:12)
[2022-06-08] MEDS: AMITRIPTYLINE HCL 10 MG TABLET PO (21:12)
[2022-06-08 23:21] VITALS: BP 124/66; PULSE 109; RESP 18; TEMP 36.6; O2SAT 99
[2022-06-09 03:24] VITALS: BP 125/76; PULSE 110; RESP 18; TEMP 36.3; O2SAT 100
[2022-06-09 04:47] LABS: Hemoglobin 10.4 g/dL (12.0-15.0); Mean Corpuscular HGB Conc 34.7 g/dl (32-36); Mean Corpuscular Hemoglobin 31.9 pg (26-34); Mean Platelet Volume 9.1 fl (7.4-10.4); Platelet Count Result 239 k/mm3 (150-375); Red Blood Count 3.26 M/mm3 (4.2-5.4); Red Cell Distribution Width 11.9 % (11.5-14.5); White Blood Count 16.9 K/mm3 (4.5-10.0)
[2022-06-09] MEDS: LACTATED RINGERS 1,000 ML 100 ML IV CONT ×2 (05:06→17:05)
[2022-06-09] MEDS: metroNIDAZOLE 500 MG/ISO 100ML 500 MG/100 ML BAG 100 MG IVPB ×3 (05:06→17:02)
[2022-06-09 05:10] LABS: Anion Gap 7 mmol/L (8-16); Blood Urea Nitrogen 6 mg/dL (7-17); Calcium 8.1 mg/dL (8.4-10.2); Carbon Dioxide 24 mmol/L (22-30); Chloride 102 mmol/L (98-107); Estimated CRCL calculation 129 ml/min; Estimated Glomerular Filt Rate > 60; Glucose 90 mg/dL (65-110); Potassium 3.6 mmol/L (3.4-5.0); Sodium 133 mmol/L (137-145)
[2022-06-09 05:25] LABS: CRP 22.8 mg/dL (<1.0)
[2022-06-09] MEDS: PANTOPRAZOLE 40 MG TABLET PO (09:19)
[2022-06-09] MEDS: MORPHINE SULFATE (*CRX) 2 MG/ML INJ IV PUSH (09:19)
[2022-06-09] MEDS: ENOXAPARIN 40 MG/0.4 ML SYRINGE SUB-Q (09:19)
[2022-06-09] MEDS: ALVIMOPAN 12 MG CAPSULE PO ×2 (09:19→20:06)
--- NOTE | 2022-06-09 10:19 | PM.PNGS ---
Progress Note: A&P Assessment and Plan (1) Diverticulitis: Code(s): K57.92 - Diverticulitis of intestine, part unspecified, without perforation or abscess without bleeding Status: Acute Assessment and Plan: WBC and CRP up further, and patient is tachycardic. Bowel function and distention improving. Not sure if this is just postoperative pain and ileus or possible early signs of anastomotic leak. Will get CT abd/pelvis today and keep NPO except ice chips. If CT looks ok, will restart clear liquids. Subjective Subjective Date/Time Seen: 06/09/22 10:19 Interval history: Patient having some pressure pains with urination and also having pelvic pain with BM's. Still moving bowels and passing some flatus. Bloating improved. No fevers. Exam GI: Inspection: incision (intact with glue) Other: minimal abdominal distention. RLQ pain near incision. Some upper abdominal tenderness, not much suprapubic or lower abdominal tenderness. Objective Data Vital Signs Vital Signs: Vital Signs - 24 hr 06/08/22 14:10 06/08/22 18:00 06/08/22 19:21 Temperature 36.7 C 36.9 C 37.1 C Pulse Rate 93 98 110 H Respiratory Rate 18 20 17 Blood Pressure 114/67 125/72 112/75 Pulse Oximetry 100 98 99 Oxygen Delivery 06/08/22 23:21 06/09/22 03:24 06/09/22 09:15 Temperature 36.6 C 36.3 C L Pulse Rate 109 H 110 H Respiratory Rate 18 18 Blood Pressure 124/66 125/76 Pulse Oximetry 99 100 Oxygen Delivery Room Air Intake/Output Intake/Output: Intake & Output 06/06/22 06/07/22 06/08/22 06/09/22 23:59 23:59 23:59 23:59 Intake Total 4405 4720 3820 1200 Output Total 2575 Balance 1830 4720 3820 1200 Meds/Results Medications: Active Medications Generic Name Dose Route Start Last Admin Trade Name Freq PRN Reason Stop Dose Admin Hydrocodone Bitart/Acetaminophen 1 tab 06/05/22 18:04 06/08/22 21:11 Hydrocodone/Acetaminophen (*Crx) 5-325 Mg Tablet PO 1 tab Q4H PRN Administration Pain Rated 4-6 Alvimopan 12 mg 06/06/22 21:00 06/09/22 09:19 Alvimopan 12 Mg Capsule PO 06/13/22 20:59 12 mg Q12HR BRIANA Administration Amitriptyline HCl 10 mg 06/05/22 21:00 06/08/22 21:12 Amitriptyline Hcl 10 Mg Tablet PO 10 mg HS BRIANA Administration Enoxaparin Sodium 40 mg 06/06/22 09:00 06/09/22 09:19 Enoxaparin 40 Mg/0.4 Ml Syringe SUB-Q 40 mg DAILY BRIANA Administration Ergocalciferol 50,000 units 06/07/22 22:00 06/07/22 21:06 Ergocalciferol 50,000 Units Capsule PO 50,000 units FR@2200 BRIANA Administration Levofloxacin/Dextrose 750 mg in 150 mls @ 100 mls/hr 06/05/22 19:00 06/08/22 20:12 Levaquin 750 Mg/D5w 150 Ml IVPB Infused Q24H BRIANA Infusion Metronidazole 500 mg in 100 mls @ 100 mls/hr 06/05/22 18:00 06/09/22 06:06 Flagyl 500 Mg/Iso Soln 100 Ml IVPB Infused Q6H BRIANA Infusion Lactated Ringer's 1,000 mls @ 100 mls/hr 06/05/22 18:04 06/09/22 05:06 Lr - Lactated Ringers Iv IV CONT 100 mls/hr .Q10H BRIANA Administration Ketorolac Tromethamine 30 mg 06/05/22 18:04 06/07/22 21:11 Ketorolac 30 Mg/Ml Vial (*Bkc) IV PUSH 06/10/22 18:03 30 mg Q6H PRN Administration Pain Rated 4-6 Lamotrigine 100 mg 06/06/22 21:00 06/08/22 21:12 Lamotrigine 100 Mg Tablet PO 07/05/22 18:03 100 mg HS BRIANA Administration Loratadine 10 mg 06/05/22 23:50 06/08/22 21:12 Loratadine 10 Mg Tablet PO 10 mg HS BRIANA Administration Morphine Sulfate 2 mg 06/05/22 18:04 06/09/22 09:19 Morphine Sulfate (*Crx) 2 Mg/Ml Inj IV PUSH 2 mg Q2H PRN Administration Pain Rated 4-6 Morphine Sulfate 4 mg 06/05/22 18:04 06/08/22 18:42 Morphine Sulfate (*Crx) 4 Mg/Ml Inj IV PUSH 4 mg Q2H PRN Administration Pain Rated 7-10 Naloxone HCl 0.1 mg 06/05/22 18:04 Naloxone Hcl 0.4 Mg/Ml Vial IV PUSH Q2M PRN Opiate Reversal Ondansetron HCl 4 mg 06/05/22 18:04 06/08/22 08:20 Ondansetron Inj 4 Mg/2 Ml Vial
[2022-06-09 15:25] VITALS: BP 118/70; PULSE 105; RESP 16; TEMP 36.8; O2SAT 100
[2022-06-09] MEDS: HYDROcodone/acetaminophen (*CRX) 5-325 MG TABLET 1 TAB PO (19:28)
[2022-06-09] MEDS: AMITRIPTYLINE HCL 10 MG TABLET PO (20:06)
[2022-06-09] MEDS: LORATADINE 10 MG TABLET PO (20:07)
[2022-06-09] MEDS: lamoTRIgine 100 MG TABLET PO (20:07)
[2022-06-09 21:30] VITALS: BP 117/67; PULSE 112; RESP 18; TEMP 36.8; O2SAT 97
[2022-06-10] VITALS (8 sets, daily range): BP systolic 107–114; BP diastolic 63–74; PULSE 90–101; RESP 18–24; TEMP 36.2–37; O2SAT 96–100
[2022-06-10] MEDS: metroNIDAZOLE 500 MG/ISO 100ML 500 MG/100 ML BAG 100 MG IVPB ×5 (00:23→23:32)
[2022-06-10] MEDS: LACTATED RINGERS 1,000 ML 100 ML IV CONT ×2 (05:11→17:21)
[2022-06-10 05:33] LABS: Anion Gap 7 mmol/L (8-16); Blood Urea Nitrogen 6 mg/dL (7-17); Carbon Dioxide 25 mmol/L (22-30); Chloride 104 mmol/L (98-107); Estimated CRCL calculation 151 ml/min; Estimated Glomerular Filt Rate > 60; Glucose 91 mg/dL (65-110); Potassium 3.5 mmol/L (3.4-5.0); Sodium 136 mmol/L (137-145)
[2022-06-10 05:34] LABS: Hematocrit 27.7 % (37.0-47.0); Hemoglobin 9.7 g/dL (12.0-15.0); Mean Corpuscular Hemoglobin 31.8 pg (26-34); Mean Corpuscular Volume 90.8 fl (80-100); Mean Platelet Volume 9.3 fl (7.4-10.4); Platelet Count Result 254 k/mm3 (150-375); Red Blood Count 3.05 M/mm3 (4.2-5.4); White Blood Count 14.6 K/mm3 (4.5-10.0)
[2022-06-10 06:03] LABS: CRP 23.7 mg/dL (<1.0)
[2022-06-10] MEDS: ONDANSETRON INJ 4 MG/2 ML VIAL IV PUSH (07:52)
--- NOTE | 2022-06-10 09:50 | PM.PNGS ---
Progress Note: A&P Assessment and Plan (1) Diverticulitis: Code(s): K57.92 - Diverticulitis of intestine, part unspecified, without perforation or abscess without bleeding Status: Acute Assessment and Plan: CT reviewed, exam benign, +bowel fxn, magdiel clears, labs and vitals improved, cont abx, serial exams, may get hypaque enema for further evaluation if worsening symptoms (2) Urinary retention: Code(s): R33.9 - Retention of urine, unspecified Status: Acute Assessment and Plan: will place doyle as majority of symptoms seems to stem for urinary retention Subjective Subjective Date/Time Seen: 06/10/22 09:50 feels a little better, still c pressure, cramping in pelvis jazmin c voiding, having difficulty voiding, reports no issues c BMs, flatus Review of Systems Review of Systems: All systems reviewed & are unremarkable except as noted in HPI and below Exam Const: General: cooperative, comfortable and no acute distress Resp: Auscultation: clear to auscultation bilaterally Cardio: Rate: tachycardic Rhythm: regular rhythm GI: Inspection: normal to inspection, non-distended and incision GI Palp: Yes abdominal tenderness, Yes Soft to palpation, Yes Tenderness to palpation present (GI), No Guarding due to palpation present (GI) and No Rigid due to palpation Objective Data Vital Signs Vital Signs: Vital Signs - 24 hr 06/09/22 15:25 06/09/22 21:30 06/10/22 00:20 Temperature 36.8 C 36.8 C 36.7 C Pulse Rate 105 H 112 H 101 H Respiratory Rate 16 18 18 Blood Pressure 118/70 117/67 107/68 Pulse Oximetry 100 97 97 06/10/22 05:34 Temperature 37.0 C Pulse Rate 101 H Respiratory Rate 18 Blood Pressure 112/73 Pulse Oximetry 96 Intake/Output Intake/Output: Intake & Output 06/07/22 06/08/22 06/09/22 06/10/22 23:59 23:59 23:59 23:59 Intake Total 4720 3820 2790 1300 Output Total 1350 Balance 4720 3820 1440 1300 Meds/Results Medications: Active Medications Generic Name Dose Route Start Last Admin Trade Name Freq PRN Reason Stop Dose Admin Hydrocodone Bitart/Acetaminophen 1 tab 06/05/22 18:04 06/09/22 19:28 Hydrocodone/Acetaminophen (*Crx) 5-325 Mg Tablet PO 1 tab Q4H PRN Administration Pain Rated 4-6 Alvimopan 12 mg 06/06/22 21:00 06/09/22 20:06 Alvimopan 12 Mg Capsule PO 06/13/22 20:59 12 mg Q12HR BRIANA Administration Amitriptyline HCl 10 mg 06/05/22 21:00 06/09/22 20:06 Amitriptyline Hcl 10 Mg Tablet PO 10 mg HS BRIANA Administration Enoxaparin Sodium 40 mg 06/06/22 09:00 06/09/22 09:19 Enoxaparin 40 Mg/0.4 Ml Syringe SUB-Q 40 mg DAILY BRIANA Administration Ergocalciferol 50,000 units 06/07/22 22:00 06/07/22 21:06 Ergocalciferol 50,000 Units Capsule PO 50,000 units FR@2200 BRIANA Administration Levofloxacin/Dextrose 750 mg in 150 mls @ 100 mls/hr 06/05/22 19:00 06/09/22 20:57 Levaquin 750 Mg/D5w 150 Ml IVPB Infused Q24H BRIANA Infusion Metronidazole 500 mg in 100 mls @ 100 mls/hr 06/05/22 18:00 06/10/22 06:10 Flagyl 500 Mg/Iso Soln 100 Ml IVPB Infused Q6H BRIANA Infusion Lactated Ringer's 1,000 mls @ 100 mls/hr 06/05/22 18:04 06/10/22 05:11 Lr - Lactated Ringers Iv IV CONT 100 mls/hr .Q10H BRIANA Administration Ketorolac Tromethamine 30 mg 06/05/22 18:04 06/07/22 21:11 Ketorolac 30 Mg/Ml Vial (*Bkc) IV PUSH 06/10/22 18:03 30 mg Q6H PRN Administration Pain Rated 4-6 Lamotrigine 100 mg 06/06/22 21:00 06/09/22 20:07 Lamotrigine 100 Mg Tablet PO 07/05/22 18:03 100 mg HS BRIANA Administration Loratadine 10 mg 06/05/22 23:50 06/09/22 20:07 Loratadine 10 Mg Tablet PO 10 mg HS BRIANA Administration Miscellaneous Information 1 each 06/09/22 00:01 06/10/22 00:26 Toradol Is Due For Renewal; Please Renew If Needed Or Med Will Auto D/C XX 07/09/22 00:00 Not Given CLARIFY BRIANA Morphine Sulfate 2 mg 06/05/22 18:04 06/09/22 09:19 Morphine Sulfate (*Crx) 2 Mg
[2022-06-10] MEDS: ENOXAPARIN 40 MG/0.4 ML SYRINGE SUB-Q (10:13)
[2022-06-10] MEDS: PANTOPRAZOLE 40 MG TABLET PO (10:13)
[2022-06-10] MEDS: ALVIMOPAN 12 MG CAPSULE PO ×2 (10:14→20:13)
[2022-06-10] MEDS: HYOSCYAMINE SULFATE 0.0625 MG TABLET PO ×2 (11:38→17:52)
[2022-06-10] MEDS: AMITRIPTYLINE HCL 10 MG TABLET PO (20:13)
[2022-06-10] MEDS: LORATADINE 10 MG TABLET PO (20:13)
[2022-06-10] MEDS: lamoTRIgine 100 MG TABLET PO (20:13)
[2022-06-11] MEDS: metroNIDAZOLE 500 MG/ISO 100ML 500 MG/100 ML BAG 100 MG IVPB ×2 (05:05→13:09)
[2022-06-11 05:26] VITALS: BP 104/65; PULSE 89; RESP 20; TEMP 35.8; O2SAT 98
[2022-06-11 07:59] VITALS: TEMP 36.3
[2022-06-11] MEDS: ENOXAPARIN 40 MG/0.4 ML SYRINGE SUB-Q (08:10)
[2022-06-11] MEDS: HYOSCYAMINE SULFATE 0.0625 MG TABLET PO (08:11)
[2022-06-11] MEDS: PANTOPRAZOLE 40 MG TABLET PO (08:11)
[2022-06-11] MEDS: ALVIMOPAN 12 MG CAPSULE PO (08:11)
[2022-06-11 10:10] LABS: Hematocrit 30.1 % (37.0-47.0); Hemoglobin 10.3 g/dL (12.0-15.0); Mean Corpuscular HGB Conc 34.2 g/dl (32-36); Mean Corpuscular Volume 90.7 fl (80-100); Mean Platelet Volume 9.1 fl (7.4-10.4); Platelet Count Result 321 k/mm3 (150-375); Red Blood Count 3.32 M/mm3 (4.2-5.4); Red Cell Distribution Width 12.2 % (11.5-14.5); White Blood Count 10.6 K/mm3 (4.5-10.0)
[2022-06-11 10:21] LABS: Anion Gap 14 mmol/L (8-16); Blood Urea Nitrogen 5 mg/dL (7-17); Calcium 8.5 mg/dL (8.4-10.2); Carbon Dioxide 25 mmol/L (22-30); Chloride 102 mmol/L (98-107); Estimated CRCL calculation 151 ml/min; Estimated Glomerular Filt Rate > 60; Glucose 120 mg/dL (65-110); Potassium 3.5 mmol/L (3.4-5.0); Sodium 141 mmol/L (137-145)
--- NOTE | 2022-06-11 10:59 | PM.PNGS ---
Progress Note: A&P Assessment and Plan (1) Diverticulitis: Code(s): K57.92 - Diverticulitis of intestine, part unspecified, without perforation or abscess without bleeding Status: Acute Assessment and Plan: feels much better, ADAT, encourage OOB/IS, home soon (2) Urinary retention: Code(s): R33.9 - Retention of urine, unspecified Status: Acute Assessment and Plan: much improved darlin Reina Subjective Subjective Date/Time Seen: 06/11/22 10:59 feels much improved, cramping almost completely resolved, urinating s issue, magdiel clears, +bowel fxn Review of Systems Review of Systems: All systems reviewed & are unremarkable except as noted in HPI and below Exam Const: General: cooperative, comfortable and no acute distress Resp: Auscultation: clear to auscultation bilaterally Cardio: Rate: regular rate Rhythm: regular rhythm GI: Inspection: normal to inspection, distended and incision GI Palp: Yes abdominal tenderness, Yes Soft to palpation, No Tenderness to palpation present (GI), No Guarding due to palpation present (GI) and No Rigid due to palpation Objective Data Vital Signs Vital Signs: Vital Signs - 24 hr 06/10/22 14:00 06/10/22 18:00 06/10/22 20:08 Temperature 36.6 C 36.7 C 36.7 C Pulse Rate 93 94 90 Respiratory Rate 20 22 H 20 Blood Pressure 114/70 112/72 110/74 Pulse Oximetry 100 99 100 Oxygen Delivery 06/10/22 20:15 06/10/22 23:56 06/11/22 05:26 Temperature 36.2 C L 35.8 C L Pulse Rate 90 97 89 Respiratory Rate 20 20 20 Blood Pressure 108/66 104/65 Pulse Oximetry 100 99 98 Oxygen Delivery Room Air 06/11/22 07:59 Temperature 36.3 C L Pulse Rate Respiratory Rate Blood Pressure Pulse Oximetry Oxygen Delivery Intake/Output Intake/Output: Intake & Output 06/08/22 06/09/22 06/10/22 06/11/22 23:59 23:59 23:59 23:59 Intake Total 3820 2790 4280 750 Output Total 1350 825 600 Balance 3820 1440 3455 150 Meds/Results Medications: Active Medications Generic Name Dose Route Start Last Admin Trade Name Freq PRN Reason Stop Dose Admin Hydrocodone Bitart/Acetaminophen 1 tab 06/05/22 18:04 06/09/22 19:28 Hydrocodone/Acetaminophen (*Crx) 5-325 Mg Tablet PO 1 tab Q4H PRN Administration Pain Rated 4-6 Alvimopan 12 mg 06/06/22 21:00 06/11/22 08:11 Alvimopan 12 Mg Capsule PO 06/13/22 20:59 12 mg Q12HR BRIANA Administration Amitriptyline HCl 10 mg 06/05/22 21:00 06/10/22 20:13 Amitriptyline Hcl 10 Mg Tablet PO 10 mg HS BRIANA Administration Enoxaparin Sodium 40 mg 06/06/22 09:00 06/11/22 08:10 Enoxaparin 40 Mg/0.4 Ml Syringe SUB-Q 40 mg DAILY BRIANA Administration Ergocalciferol 50,000 units 06/07/22 22:00 06/07/22 21:06 Ergocalciferol 50,000 Units Capsule PO 50,000 units FR@2200 BRIANA Administration Hyoscyamine 0.0625 mg 06/10/22 11:06 06/11/22 08:11 Hyoscyamine Sulfate 0.0625 Mg Tablet PO 0.0625 mg Q4H PRN Administration Bladder Spasm Levofloxacin/Dextrose 750 mg in 150 mls @ 100 mls/hr 06/05/22 19:00 06/10/22 20:25 Levaquin 750 Mg/D5w 150 Ml IVPB Infused Q24H BRIANA Infusion Metronidazole 500 mg in 100 mls @ 100 mls/hr 06/05/22 18:00 06/11/22 06:05 Flagyl 500 Mg/Iso Soln 100 Ml IVPB Infused Q6H BRIANA Infusion Lamotrigine 100 mg 06/06/22 21:00 06/10/22 20:13 Lamotrigine 100 Mg Tablet PO 07/05/22 18:03 100 mg HS BRIANA Administration Loratadine 10 mg 06/05/22 23:50 06/10/22 20:13 Loratadine 10 Mg Tablet PO 10 mg HS BRIANA Administration Miscellaneous Information 1 each 06/09/22 00:01 06/11/22 00:12 Toradol Is Due For Renewal; Please Renew If Needed Or Med Will Auto D/C XX 07/09/22 00:00 Not Given CLARIFY BRIANA Morphine Sulfate 2 mg 06/05/22 18:04 06/09/22 09:19 Morphine Sulfate (*Crx) 2 Mg/Ml Inj IV PUSH 2 mg Q2H PRN Administration Pain Rated 4-6 Morphine Sulfate 4 mg 06/05/22 18:04 06/08/22 18:42 Carmelo
[2022-06-11 14:26] VITALS: BP 108/69; PULSE 88; RESP 16; TEMP 36.6; O2SAT 100
--- NOTE | 2022-06-12 09:52 | PM.DS ---
DS: Admitting Diagnosis Discharge Date 06/11/22 Admitting Diagnosis recurrent diverticulitis DS: Discharge Diagnosis Discharge Diagnosis (1) Diverticulitis: Code(s): K57.92 - Diverticulitis of intestine, part unspecified, without perforation or abscess without bleeding Status: Acute Assessment and Plan: Doing well status post sigmoid colectomy, continue routine postoperative care and light activity restrictions, home with p.o. analgesia and Colace, follow-up 2 weeks (2) Urinary retention: Code(s): R33.9 - Retention of urine, unspecified Status: Acute Assessment and Plan: resolved at this time, may need follow-up with Urology if continues to have symptoms post discharge DS: Summary Hospital Course Reason for hospitalization: recurrent acute diverticulitis Hospital Course: The patient is a 41-year-old female that initially presented to the office after multiple recurrent episodes of uncomplicated diverticulitis. The patient continued to have a smoldering episode despite antibiotics and this was confirmed via colonoscopy. Given this, decision was made for elective sigmoid colectomy. The patient was taken to the operating room on 06/05 and sigmoid colectomy was performed, please see full operative report for details of that procedure. The patient did well postoperatively and was transferred to the surgical floor. On postoperative day 1. , the patient was doing well and was tolerating a clear liquid diet. Her Lr catheter was removed at that time. Over the next few days, patient did and elevation of her white count and was complaining of pressure in the pelvis. She was noted to have bowel function and was tolerating her clear liquid diet. Workup, including CT scan, was suggestive of urinary retention. The patient was restarted on antibiotics and was given an anti spasmodic for her urinary retention. This seemed to resolve the pressure in her pelvis. The patient was then able to urinate without issue. Her leukocytosis resolved and she was able to be advanced to a regular diet. The patient will now be discharged home on postoperative day 5. , with p.o. analgesia and Colace. She will follow-up with me in 2 weeks. Status at Discharge Functional status at discharge: independent ambulation Overall status at discharge: patient is progressing back to baseline Time Spent with Patient Time attestation: Total time spent providing and/or coordinating discharge services: Exam Const: General: cooperative, comfortable and no acute distress Orientation/consciousness: patient oriented x3 Resp: Auscultation: clear to auscultation bilaterally Cardio: Rate: regular rate Rhythm: regular rhythm GI: Inspection: normal to inspection, distended and incision GI Palp: Yes abdominal tenderness, Yes Soft to palpation, Yes Tenderness to palpation present (GI), No Guarding due to palpation present (GI) and No Rigid due to palpation DS: Data Data Completed and Pending Completed studies during hospitalization: Pending at discharge 06/05/22 14:26 Surgical [PTH] Routine Labs on day of discharge: Labs from last 24 hours 06/11/22 06/11/22 10:03 10:03 WBC 10.6 H RBC 3.32 L Hgb 10.3 L Hct 30.1 L MCV 90.7 MCH 31.0 MCHC 34.2 RDW 12.2 Plt Count 321 MPV 9.1 Sodium 141 Potassium 3.5 Chloride 102 Carbon Dioxide 25 Anion Gap 14 BUN 5 L Creatinine 0.50 L Estim Creat Clear Calc 151 Estimated GFR > 60 Glucose 120 H Calcium 8.5 Discharge Plan Discharge Attending physician on discharge: Jessica Garcia Discharging Clinician: Jessica Garcia Patient Disposition: Home, Self-Care Activity: may shower and no straining Diet: as tolerated Wound Care Instructions: incision open to air Patient Instructions: Antibiotic Form Stand Alone Forms: General Discharge Information Follow-up/Referrals: Jessica Garcia MD [Physician] - 2 We
== END 2022-06-11 17:40 | disposition home or self-care (01) | DRG 331 ==
LOC: ANH2MED 18:06
PROVIDERS: Nurse Practitioner Family; Surgery; Admitting Provider Surgery; PCP Family Medicine; Visit Provider Surgery
PROC: 0D1E4Z4 Bypass Large Intestine to Cutaneous, Percutaneous Endoscopic Approach (ICD-10-PCS; principal; 2022-06-05 12:00)
DX: K57.32 Diverticulitis of large intestine without perforation or abscess without bleeding (principal); F17.290 Nicotine dependence, other tobacco product, uncomplicated; R33.9 Retention of urine, unspecified; Z79.899 Other long term (current) drug therapy
CPT/HCPCS: 36415; 74019; 74176; 80048; 80053; 81001; 83690; 83735; 85025; 85027; 86140; 88307; 96361; 96374; 99284; A9270; C1729; J0690; J1100; J1650; J1885; J1956; J2250; J2270; J2405; J2710; J3010; J7030; J7120

== ENCOUNTER 2022-09-25 14:37 | Emergency (ER) | payer OTHER, MEDICAID, SELFPAY ==
[2022-09-25 14:42] VITALS: BP 162/88; PULSE 99; RESP 14; TEMP 37.4; O2SAT 98
[2022-09-25 15:06] VITALS: BP 149/85; PULSE 88; RESP 14; TEMP 37.2; O2SAT 100
--- NOTE | 2022-09-25 16:06 | ED.GENADULT ---
HPI - General Adult General Chief complaint: Unspecified Stated complaint: bruising to inner thigh Time Seen by Provider: 09/25/22 15:13 History of Present Illness HPI narrative: Patient is a 41-year-old female presenting with color changes on her thighs. Patient states that for the last week she has noticed some darker skin on her inner thighs. States it is not painful or itchy. She has not noticed any changes elsewhere. No leg swelling. No recent injuries. Patient states that she got a new tattoo a couple of months ago and they became concerned she might have a blood infection. Patient denies any further complaints. No fevers, chest pain, shortness of breath, lightheadedness, abdominal pain, vomiting, diarrhea. No numbness or weakness. No ambulatory dysfunction. Related Data Home Medications Medication Instructions Recorded Confirmed cetirizine 10 mg capsule (Zyrtec) 10 mg PO DAILY PRN 07/10/22 08/28/22 Allergies Allergy/AdvReac Type Severity Reaction Status Date / Time Penicillins Allergy Rash Verified 08/28/22 10:41 shrimp Allergy Rash Verified 08/28/22 10:41 wheat AdvReac Severe Abdominal Verified 08/28/22 10:41 Pain iodine AdvReac Intermediate sneezing Verified 08/28/22 10:41 irbesartan AdvReac hair loss Verified 08/28/22 10:41 Contrast Media AdvReac Mild SNEEZING Uncoded 08/28/22 10:41 Review of Systems Review of Systems: All systems reviewed & are unremarkable except as noted in HPI and below PMFSH Past Medical History Medical History Abnormal endoscopy of upper gastrointestinal tract Arthritis BMI 31.0-31.9,adult BMI 32.0-32.9,adult BMI 34.0-34.9,adult BMI 37.0-37.9, adult Chronic back pain Chronic headaches Depression Diverticulitis Diverticulosis Gallbladder disease GERD (gastroesophageal reflux disease) Hemorrhoids Hypertension Ovarian cyst Seizures Sleep apnea Uterine fibroid Surgical History Surgical History H/O dilation and curettage H/O endoscopy H/O vein stripping History of appendectomy Hx of cholecystectomy Hx of colectomy AMBER Sigmoid colectomy on 11/16/22 Previous section Family History Family History Father Heart disease Hypertension Diabetes mellitus Mother Diabetes mellitus Heart disease Sibling No problems noted. Grandparent Breast cancer Social History Social History Smoking packs per day: 1 Smoking cigarettes per day: 20.0 Years smoked: 7 Smoking pack-years: 7.00 Smoking status: Current every day smoker Tobacco type: e-cigarettes/vaping Second hand tobacco smoke exposure: Yes (SPOUSE) Alcohol intake: current Drinks per week: 1 Alcohol use details: social Substance use: never Substance use type: does not use Lack of Transportation: No Lack of Food: Never True Current Housing: I Have Housing Concerned About Future Housing: No Difficulty Paying Gas/Electric Bills: No Difficulty Paying for Meds: No Currently Unemployed: No Education: High School Diploma/GED Difficulty w/ Childcare or Family Care: No Living arrangements: with family Additional living arrangements comments: PT CURRENTLY LIVING WITH SPOUSE (MARLON) AND CHILDERN Occupation/Education: occupation 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 HEAD: Normocephalic, atraumatic. EYES: PERRLA and EOMI. ENT: Nares clear, no rhinorrhea or epistaxis. Mucous membranes moist. NECK: Supple. CHEST: Clear to auscultation. No respiratory distress. HEART
[2022-09-25 16:29] VITALS: BP 133/92; PULSE 90; RESP 15; TEMP 37.3; O2SAT 99
== END 2022-09-25 16:31 | disposition home or self-care (01) ==
PROVIDERS: Emergency Provider Emergency Medicine; PCP Family Medicine
DX: L81.9 Disorder of pigmentation, unspecified (principal); I10 Essential (primary) hypertension; M19.90 Unspecified osteoarthritis, unspecified site; K21.9 Gastro-esophageal reflux disease without esophagitis; G47.30 Sleep apnea, unspecified; Z90.49 Acquired absence of other specified parts of digestive tract; F17.290 Nicotine dependence, other tobacco product, uncomplicated; F32.A Depression, unspecified
CPT/HCPCS: 99281

== ENCOUNTER 2022-12-02 12:05 | Outpatient (CLI) | payer OTHER, MEDICAID, SELFPAY ==
--- NOTE | ~2022-12-02 | XR_ITS ---
EXAMINATION: XR hand BI arthritis min 3V DATE: 12/02/2022 12:35 INDICATION: Other specified abnormal immunological findings. TECHNIQUE: 4 views of right hand and 4 views of left hand on 7 radiographs were obtained. COMPARISON: None. FINDINGS: RIGHT HAND: Bone alignment is normal. No fracture. There is mild osteoarthritis of distal radioulnar joint, second metacarpophalangeal joint, and third distal interphalangeal joint. LEFT HAND: Bone alignment is normal. No fracture. There is mild osteoarthritis of first carpometacarp al joint and second metacarpophalangeal joint. IMPRESSION: 1. Mild polyarticular osteoarthritis. No evidence of inflammatory arthropathy. Reviewed, dictated and finalized at location A.
--- NOTE | ~2022-12-02 | XR_ITS ---
Right foot Technique: AP and lateral standing views were obtained. Clinical History: Abnormal immunological findings Findings: No acute fracture or dislocation is seen. Osseous alignment is anatomic. Joint spaces are p reserved without erosive or degenerative change. Small plantar calcaneal spur present. Soft tissues a re unremarkable. Impression: Plantar calcaneal spur, otherwise unremarkable exam. Reviewed, dictated and finalized at location . Impression: Plantar calcaneal spur, otherwise unremarkable exam.
--- NOTE | ~2022-12-02 | XR_ITS ---
Left foot Technique: AP and lateral standing views were obtained. Clinical History: Abnormal immunological findings Findings: No acute fracture or dislocation is seen. Osseous alignment is anatomic. Joint spaces are p reserved without erosive or degenerative change. Plantar calcaneal spur noted. Soft tissues are unrem arkable. Impression: Plantar calcaneal spur, otherwise unremarkable exam. Reviewed, dictated and finalized at location . Impression: Plantar calcaneal spur, otherwise unremarkable exam.
== END 2022-12-02 12:06 | disposition home or self-care (01) ==
PROVIDERS: PCP Family Medicine; Visit Provider Internal Medicine
DX: R76.8 Other specified abnormal immunological findings in serum (principal); M19.041 Primary osteoarthritis, right hand; M19.042 Primary osteoarthritis, left hand; M77.31 Calcaneal spur, right foot; M77.32 Calcaneal spur, left foot
CPT/HCPCS: 73130; 73620

== ENCOUNTER 2023-01-01 14:31 | Emergency (ER) | payer OTHER, MEDICAID, SELFPAY ==
--- NOTE | ~2023-01-01 | XR_ITS ---
EXAMINATION: XR chest 1V portable DATE: 01/01/23 INDICATION: Chest pain. TECHNIQUE: A single frontal view of the chest was obtained. COMPARISON: Chest 2 views 02/04/2022 FINDINGS: There is no pneumonia, pleural effusion, or pneumothorax. The heart size is normal. IMPRESSION: 1. No acute cardiopulmonary disease. Reviewed, dictated and finalized at location A.
--- NOTE | 2023-01-01 14:40 | ECG_ITS ---
Measurements Intervals [place] Rate: 93 P: 73 DC: 155 QRS: 49 QRSD: 75 T: 53 QT: 343 QTc: 427 Interpretive Statements SINUS RHYTHM COMPARED TO ECG 02/04/2022 16:06:34 NO SIGNIFICANT CHANGES Electronically Signed On 01-02-2023 13:44:12 CDT by Triny Mesa M.D.
[2023-01-02 15:12] LABS: Anion Gap 8 mmol/L (8-16); Blood Urea Nitrogen 7 mg/dL (7-17); Carbon Dioxide 29 mmol/L (22-30); Chloride 100 mmol/L (98-107); Estimated Glomerular Filt Rate > 60; Potassium 3.8 mmol/L (3.4-5.0); Sodium 137 mmol/L (137-145)
[2023-01-02 15:13] LABS: Alanine Aminotransferase 33 U/L (6-35); Albumin Level 4.7 g/dL (3.5-5.1); Alkaline Phosphatase 112 U/L (38-126); Aspartate Amino Transferase 33 U/L (14-36); Bilirubin,Total 0.6 mg/dL (0.2-1.3); Calcium 9.1 mg/dL (8.4-10.2); Glucose 92 mg/dL (65-110); Total Protein 8.9 g/dL (6.3-8.2); Troponin I < 0.012 ng/mL (0.000-0.034)
[2023-01-02 15:16] LABS: Basophils Percent Auto 0.4 % (0.2-1.2); Eosinophils Percent Auto 3.3 % (0-4.4); Hematocrit 39.2 % (37.0-47.0); Hemoglobin 13.6 g/dL (12.0-15.0); Immature Granulocyte Percent A 0.1 % (0-0.5); Mean Corpuscular HGB Conc 34.7 g/dl (32-36); Mean Corpuscular Volume 89.3 fl (80-100); Mean Platelet Volume 9.1 fl (7.4-10.4); Monocytes Percent Auto 5.5 % (2.6-8.5); Neutrophils Percent Auto 68.7 % (45.5-73.1); Platelet Count Result 325 k/mm3 (150-375); Red Blood Count 4.39 M/mm3 (4.2-5.4)
[2023-01-02 15:17] LABS: Eosinophils Absolute Auto 0.2 K/mm3 (0-0.3); Immature Granulocyte Absolute 0.01 K/mm3 (0.00-0.031); Lymphocytes Absolute Auto 1.55 K/mm3 (0.9-3.2); Monocytes Absolute Auto 0.4 K/mm3 (0.1-0.6); Neutrophils Absolute Auto 4.8 K/mm3 (1.3-6.7)
== END 2023-01-01 18:30 | disposition home or self-care (01) ==
LOC: ANHED 01-06 10:39
PROVIDERS: Emergency Provider Emergency Medicine; PCP Family Medicine
DX: R07.9 Chest pain, unspecified (principal); I10 Essential (primary) hypertension; R51.9 Headache, unspecified; F41.9 Anxiety disorder, unspecified
CPT/HCPCS: 36415; 71045; 80053; 84484; 85025; 93005; 99284

== ENCOUNTER 2023-01-02 12:06 | Emergency (ER) | payer OTHER, MEDICAID, SELFPAY ==
--- NOTE | ~2023-01-02 | CT_ITS ---
EXAMINATION: CT brain wo con DATE: 01/02/2023 15:06 INDICATION: Right facial paresthesias. TECHNIQUE: Computed tomography (CT) of the head was performed without intravenous contrast. The mA wa s adjusted according to patient size. Iterative reconstruction technique was employed. The dose-lengt h product was 681.00 mGy-cm. COMPARISON: Head CT 02/18/2016 FINDINGS: There is no intracranial hemorrhage, acute infarction, or abnormal intracranial mass lesion . The ventricles are normal in size. There is mild mucosal thickening in the paranasal sinuses. The m astoid air cells are normal. The orbits are normal. IMPRESSION: 1. Normal brain. Reviewed, dictated and finalized at location A. IMPRESSION: 1. Normal brain.
--- NOTE | ~2023-01-02 | XR_ITS ---
EXAMINATION: XR chest 2V 01/02/2023 12:59 INDICATION: Chest pain. Hypertension. PROCEDURE: 2 view chest COMPARISON: No prior studies for comparison. FINDINGS: The lungs are clear. The cardiomediastinal silhouette is within normal limits. There are no pleural effusions. There is no pneumothorax suspected. IMPRESSION: 1: NO ACUTE CARDIOPULMONARY DISEASE. Reviewed, dictated and finalized at location L.
--- NOTE | 2023-01-02 12:07 | ECG_ITS ---
Measurements Intervals [place] Rate: 88 P: 67 DE: 146 QRS: 40 QRSD: 83 T: 47 QT: 340 QTc: 412 Interpretive Statements SINUS RHYTHM COMPARED TO ECG 01/01/2023 14:40:05 NO SIGNIFICANT CHANGES Electronically Signed On 01-02-2023 14:06:01 CDT by Triny Mesa M.D.
[2023-01-02 12:12] VITALS: BP 157/90; PULSE 88; RESP 18; TEMP 36.6; O2SAT 100
[2023-01-02 12:30] LABS: Basophils Percent Auto 0.6 % (0.2-1.2); Eosinophils Absolute Auto 0.2 K/mm3 (0-0.3); Eosinophils Percent Auto 3.3 % (0-4.4); Hemoglobin 13.1 g/dL (12.0-15.0); Immature Granulocyte Absolute 0.01 K/mm3 (0.00-0.031); Immature Granulocyte Percent A 0.2 % (0-0.5); Lymphocytes Absolute Auto 1.39 K/mm3 (0.9-3.2); Lymphocytes Percent Auto 25.7 % (18.3-44.2); Mean Corpuscular HGB Conc 34.5 g/dl (32-36); Mean Corpuscular Hemoglobin 30.8 pg (26-34); Mean Corpuscular Volume 89.2 fl (80-100); Mean Platelet Volume 9.1 fl (7.4-10.4); Monocytes Absolute Auto 0.3 K/mm3 (0.1-0.6); Monocytes Percent Auto 5.7 % (2.6-8.5); Neutrophils Absolute Auto 3.5 K/mm3 (1.3-6.7); Neutrophils Percent Auto 64.5 % (45.5-73.1); Platelet Count Result 321 k/mm3 (150-375); Red Blood Count 4.26 M/mm3 (4.2-5.4); Red Cell Distribution Width 11.9 % (11.5-14.5); White Blood Count 5.4 K/mm3 (4.5-10.0)
[2023-01-02 12:41] LABS: Prothrombin Time 13.3 Seconds (11.1-14.7)
[2023-01-02 12:42] LABS: Alanine Aminotransferase 36 U/L (6-35); Albumin Level 4.8 g/dL (3.5-5.1); Alkaline Phosphatase 121 U/L (38-126); Anion Gap 8 mmol/L (8-16); Aspartate Amino Transferase 34 U/L (14-36); Bilirubin,Total 0.5 mg/dL (0.2-1.3); Blood Urea Nitrogen 11 mg/dL (7-17); Calcium 8.7 mg/dL (8.4-10.2); Carbon Dioxide 26 mmol/L (22-30); Chloride 104 mmol/L (98-107); Estimated CRCL calculation 127 ml/min; Estimated Glomerular Filt Rate > 60; Glucose 104 mg/dL (65-110); Lipase 63 U/L (23-300); Partial Thromboplastin Time 26.7 SECONDS (22.3-36.8); Sodium 138 mmol/L (137-145)
[2023-01-02 12:52] LABS: Troponin I < 0.012 ng/mL (0.000-0.034)
[2023-01-02] MEDS: ASPIRIN 81 MG CHEWABLE TABLET 324 MG PO (13:11)
[2023-01-02 13:12] VITALS: PULSE 88
[2023-01-02 13:18] VITALS: BP 143/95; PULSE 85; RESP 17; O2SAT 98
--- NOTE | 2023-01-02 14:42 | ED.CHESTPAIN ---
HPI - Chest Pain General Chief Complaint: Chest Pain Stated Complaint: chest pain Time Seen by Provider: 01/02/23 13:37 History of Present Illness HPI narrative: Patient is a 42-year-old female with a history of hypertension presenting with chest pain. Patient states that for the last several days she has had chest pressure associated with shortness of breath. States that taking a deep breath makes it worse. Denies exertional component. States that she was here yesterday and everything was normal so she was able to go home. States that she went to her PCP today for a blood pressure check and it was in the 200s over 100 so they advised she come to the ER for further evaluation. States that she stopped her antihypertensives about 6 months ago after losing some weight. States that she thinks that she probably needs to go back on them. Patient also states that she has tingling on the left side of her face. States that she can feel things, just feels funny. Denies weakness anywhere. Denies numbness anywhere. No speech or vision changes. Denies fevers, cough, abdominal pain, nausea or vomiting, diarrhea, leg swelling, dysuria. Related Data Home Medications Medication Instructions Recorded Confirmed cetirizine 10 mg capsule (Zyrtec) 10 mg PO DAILY PRN 07/10/22 01/09/23 Allergies Allergy/AdvReac Type Severity Reaction Status Date / Time Penicillins Allergy Rash Verified 01/06/23 17:56 shrimp Allergy Rash Verified 01/06/23 17:56 wheat AdvReac Severe Abdominal Verified 01/06/23 17:56 Pain iodine AdvReac Intermediate sneezing Verified 01/06/23 17:56 irbesartan AdvReac hair loss Verified 01/06/23 17:56 Contrast Media AdvReac Mild SNEEZING Uncoded 01/06/23 17:56 Review of Systems Review of Systems: All systems reviewed & are unremarkable except as noted in HPI and below PMFSH Past Medical History Medical History (Updated 01/07/23 @ 12:03 by Waleska Davis MD) Abnormal endoscopy of upper gastrointestinal tract Arthritis BMI 31.0-31.9,adult BMI 32.0-32.9,adult BMI 34.0-34.9,adult BMI 37.0-37.9, adult Chronic back pain Chronic headaches Depression Diverticulitis Diverticulosis Gallbladder disease GERD (gastroesophageal reflux disease) Hemorrhoids Hypertension Numbness of face Ovarian cyst Seizures Sleep apnea Uterine fibroid Surgical History Surgical History H/O dilation and curettage H/O endoscopy H/O vein stripping History of appendectomy Hx of cholecystectomy Hx of colectomy AMBER Sigmoid colectomy on 06/05/22 Previous section Family History Family History Father Heart disease Hypertension Diabetes mellitus Mother Diabetes mellitus Heart disease Sibling No problems noted. Grandparent Breast cancer Social History Social History Smoking packs per day: 1 Smoking cigarettes per day: 20.0 Years smoked: 7 Smoking pack-years: 7.00 Smoking status: Former smoker Tobacco type: cigarettes Second hand tobacco smoke exposure: Yes (SPOUSE) Smoking end date: 07/29/22 Additional smoking assessment comments: pt is former cigarette smoker - but pt vapes Alcohol intake: current Drinks per week: 1 Alcohol use details: social Substance use: never Substance use type: does not use Lack of Transportation: No Lack of Food: Never True Current Housing: I Have Housing Concerned About Future Housing: No Difficulty Paying Gas/Electric Bills: No Difficulty Paying for Meds: No Currently Unemployed: No Education: High School Diploma/GED Difficulty w/ Childcare or Family Care: No Living arrangements: with family Additional living arrangements comments: PT CURRENTLY LIVING WITH SPOUSE (MARLON) AND CHILDERN Occupation/Education: occupation 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
[2023-01-02 15:02] LABS: Magnesium 2.1 mg/dL (1.6-2.3)
[2023-01-02 15:24] VITALS: PULSE 84; RESP 19; O2SAT 99
[2023-01-02 15:48] LABS: Troponin I < 0.012 ng/mL (0.000-0.034)
[2023-01-02 16:28] VITALS: BP 112/78; PULSE 80; RESP 18; O2SAT 98
[2023-01-02 16:34] LABS: D Dimer 0.34 ug/mL (<0.48)
[2023-01-02 17:32] VITALS: BP 110/75; PULSE 88; RESP 16; O2SAT 98
== END 2023-01-02 17:34 | disposition home or self-care (01) ==
PROVIDERS: General Practice; Emergency Provider Emergency Medicine; PCP Family Medicine
DX: R07.89 Other chest pain (principal); I10 Essential (primary) hypertension; M19.90 Unspecified osteoarthritis, unspecified site; K21.9 Gastro-esophageal reflux disease without esophagitis; G47.30 Sleep apnea, unspecified; Z90.49 Acquired absence of other specified parts of digestive tract; F17.290 Nicotine dependence, other tobacco product, uncomplicated
CPT/HCPCS: 36415; 70450; 71046; 80053; 81025; 83690; 83735; 84484; 85025; 85380; 85610; 85730; 93005; 99284; A9270

== ENCOUNTER 2023-02-12 08:51 | Outpatient (CLI) | payer OTHER, MEDICAID, SELFPAY ==
--- NOTE | ~2023-02-12 | US_ITS ---
Abdominal Sonogram: Real-time sonographic imaging of the abdomen was performed. Clinical History: Abdominal pain Findings: The liver appears mildly echogenic, with no evidence of mass lesion or bile duct dilatatio n. Main portal vein demonstrates normal direction of flow. The spleen is normal in size without evide nce of focal lesion. The gallbladder is well distended, and appears normal with no evidence of galls tone or wall thickening. The common bile duct measures 7 mm. The visualized pancreas, aorta, and IVC are unremarkable. The right kidney measures 12.8 cm in length and the left kidney measures 12.3 cm. There is no hydronephrosis or renal calculus. Impression: Diffuse fatty infiltration of the liver. Reviewed, dictated and finalized at location M. Impression: Diffuse fatty infiltration of the liver.
== END 2023-02-12 08:52 | disposition home or self-care (01) ==
PROVIDERS: PCP Family Medicine; Visit Provider Physician Assistant Medical
DX: R10.9 Unspecified abdominal pain (principal); K76.0 Fatty (change of) liver, not elsewhere classified
CPT/HCPCS: 76700

== ENCOUNTER 2023-03-11 07:46 | Outpatient (CLI) | payer OTHER, MEDICAID, SELFPAY ==
--- NOTE | ~2023-03-11 | CT_ITS ---
EXAMINATION: CT abdomen pelvis w con INDICATION: Unspecified abdominal pain TECHNIQUE: Computed tomographic images of the abdomen and pelvis were obtained after the administrati on of 100 cc of Omnipaque 350 intravenous contrast. The dose-length product (DLP) was 1148.84 mGy-cm. Automated exposure control and iterative reconstruction technique were employed. COMPARISON: 06/09/2022 FINDINGS: The lung bases are clear. The heart size is normal. The liver is diffusely low in attenuati on when compared with the spleen, consistent with hepatic steatosis. Some areas of focal fatty sparin g are noted. The spleen, pancreas, and adrenal glands are normal. There are surgical changes of francesca cystectomy. Hypoattenuating lesions in the kidneys, measuring up to 6 mm on the right, are too small to characterize but likely represent cysts. No pathologically enlarged abdominal or pelvic lymph node s are identified. There is a moderate to large midline infraumbilical hernia containing nonobstructed small bowel. There is no free intraperitoneal gas. Surgical changes are noted in the sigmoid colon. An IUD is present in expected position. There is mild lumbar spondylosis. IMPRESSION: 1. Moderate to large midline infraumbilical hernia containing nonobstructed small bowel. Reviewed, dictated and finalized at location A. IMPRESSION: 1. Moderate to large midline infraumbilical hernia containing nonobstructed sma ll bowel.
[2023-03-11 08:09] LABS: Estimated Glomerular Filt Rate > 60
== END 2023-03-11 07:47 | disposition home or self-care (01) ==
LOC: ANHIMG 07:48
PROVIDERS: PCP Family Medicine; Visit Provider Nurse Practitioner Family
DX: R10.9 Unspecified abdominal pain (principal); K92.89 Other specified diseases of the digestive system; K42.9 Umbilical hernia without obstruction or gangrene
CPT/HCPCS: 74177; Q9967

== ENCOUNTER 2023-04-21 15:40 | Inpatient (IN) | payer OTHER, MEDICAID, SELFPAY ==
[2023-04-15 10:12] VITALS: BP 133/75; PULSE 90; RESP 16; TEMP 37.2; O2SAT 100; BMI 35.9
--- NOTE | 2023-04-15 10:39 | PC.NURSE ---
Addendum entered by Hoda Goss RN 04/15/23 11:01: HIBICLENS SHOWER MORNING OF SURGERY. PATIENT RELAYS UNDERSTANDING. Original Note: Report to the Outpatient Waiting Room, entrance under the green pavilion located off [facility], at time __6:30AM on date __04/21/23 . Planned Procedure Time: __8:30AM . Time changes happen often and if your time is changed the preop area will call you the afternoon before. - You and your visitor will be asked to self-screen and do not enter if you have any COVID symptoms. - A mask is optional within the hospital at this time. Patients may have clear liquids (water, carbonated beverages, clear teas, apple juice) until 3 hours prior to surgery with a maximum of 20 ounces. - No food from midnight until time of surgery. Take the following medications with a SIP of water the morning of surgery: ___NONE DO NOT STOP ANY OF YOUR OTHER PRESCRIPTION MEDICATIONS PRIOR TO SURGERY ?EXCEPT THE FOLLOWING Medications to discontinue per physician ___HOLD ALL VITAMINS/SUPPLEMENTS 3 DAYS PRE-OP Date to take last dose____04/17/23 Please no make-up, nail angolan, hairspray, perfume, deodorant, or body powder the day of surgery. No jewelry (including any body piercings) or valuables the day of surgery, leave them at home. Please take a shower or bath the night before, or the morning of, surgery with an antibacterial soap. Wear comfortable, loose fitting clothing. Children are encouraged to wear pajamas. - Jewelry must be removed prior to entering the operating room. Rings and piercings that are not removed may be cut off. - The hospital will not accept responsibility for valuables. - Please leave all valuables, including medications, at home the day of surgery. If you are going home after surgery, a licensed route sales delivery drivers supervisor must drive you home. - NO public transportation without another adult if you receive anesthesia. - We recommend that an adult stay with you for 24 hours following discharge. - We also recommend that you do not drive, make important decision, drink alcoholic beverages, or take any drugs that were not prescribed by your health care provider for at least 24 hours after your discharge time. Follow any additional instructions given to you from your surgeon. If you or anyone in your household have experienced Covid symptoms in the past week, please notify your surgeon or the nurse liaison at the phone number below for possible testing. Telephone instructions given to __PATIENT and asked if any additional questions and then verbalized understanding. Patient advised to call surgeon office or pre surgery nurse liaison [phone] if any additional questions.
[2023-04-21] VITALS (15 sets, daily range): BP systolic 133–157; BP diastolic 60–94; PULSE 62–125; RESP 14–22; TEMP 36.1–36.6; O2SAT 88–100
--- NOTE | ~2023-04-21 | NM_ITS ---
EXAMINATION: NM lung vent and perfusion DATE: 04/24/2023 12:56 INDICATION: Hypoxia. Elevated d-dimer. TECHNIQUE: 29.9 mCi xenon-133 by inhalation and 4.6 mCi Tc-99m MAA by intravenous route. Scintigraph ic images of the chest were obtained. COMPARISON: Chest radiograph dated 04/23/2023 FINDINGS: There is homogeneous radiotracer activity throughout the lungs on the single breath ventilation seque nce. No discrete ventilation and perfusion mismatch is identified on the posterior scintigrams. Singl e large perfusion defect involving the anterobasilar segment of the left lower lobe. Otherwise relati vely homogeneous perfusion throughout the lungs. IMPRESSION: 1. Intermediate probability for pulmonary embolism. Reviewed, dictated and finalized at location A.
--- NOTE | ~2023-04-21 | XR_ITS ---
EXAMINATION: XR chest 1V portable Exam Date/Time: 04/23/2023 22:05 CDT HISTORY: SOB, O2 Demand Comparison: 01/02/2023. RESULT: Lines, tubes, and devices: Cholestatic clips. Midline skin henri. Lungs and pleura: Subsegmental right basilar opacity. Minimal right costophrenic angle blunting. Geovanna ear scar/atelectasis in the left lung base. Cardiomediastinal silhouette: Stable. Other: No acute osseous or upper abdominal finding. IMPRESSION: Bibasilar atelectasis/consolidation. Possible small right pleural effusion. Reviewed, dictated and finalized at location K.
--- NOTE | 2023-04-21 07:25 | WPDHPUPDATE1 ---
History and Physical Update Update Date/Time: 04/21/23 07:25 History and Physical has been reviewed, including an updated exam of the patient. There are NO changes in the patient's condition. Risks, benefits, and alternatives have been discussed and questions answered. Patient agrees to proceed with procedure.
--- NOTE | 2023-04-21 07:40 | WPDANESEPPF ---
Anes - Initial Pre Proc Eval Procedure: Operation Date: 04/21/23 08:30 Proposed Procedures p Open Incisional Hernia Repair with Mesh with Possible Component Separation - Jessica Garcia MD Date/Time: 04/21/23 07:40 Surgeon: Jessica Garcia MD Pre Op Diagnosis: Incisional Hernia Patient Data Age: 42 Gender: F Height: 1.73 m Weight: 107 kg Last Vital Signs Temp 37.2 C 04/15/23 10:12 Pulse 90 04/15/23 10:12 Resp 16 04/15/23 10:12 BP 133/75 04/15/23 10:12 Pulse Ox 100 04/15/23 10:12 O2 Del Method Room Air 04/15/23 10:12 Allergies Allergy/AdvReac Type Severity Reaction Status Date / Time wheat Allergy Severe Abdominal Verified 04/15/23 10:07 Pain Penicillins Allergy Rash Verified 04/15/23 10:07 shrimp Allergy Rash Verified 04/15/23 10:07 iodine AdvReac Intermediate sneezing, Verified 04/15/23 10:07 COUGH iohexol AdvReac SNEEZING, Verified 04/15/23 10:07 [From contrast - CT, X-RAY] COUGH irbesartan AdvReac hair loss Verified 04/15/23 10:07 Home Medications Medication Instructions Recorded Confirmed Type cetirizine 10 mg capsule (Zyrtec) 10 mg PO HS PRN Allergy Symptoms 07/10/22 04/15/23 History losartan 50 mg tablet 50 mg PO QAM 02/04/23 04/15/23 History amitriptyline 25 mg tablet 25 mg PO QHS #30 tabs 02/14/23 04/15/23 Rx pantoprazole 40 mg tablet,delayed 40 mg PO BID 1 month #60 tabs 04/01/23 04/15/23 Rx release amlodipine 5 mg tablet 5 mg PO HS 04/15/23 04/15/23 History lamotrigine 150 mg tablet 150 mg PO HS 04/15/23 04/15/23 History multivitamin 1 tablet PO DAILY 04/15/23 04/15/23 History Patient hx anesthesia problems: none Family hx anesthesia problems: none Results Review: All pre-operative results and documents have been reviewed as part of the pre-operative evaluation. [facility] Past Medical History Medical History Abnormal endoscopy of upper gastrointestinal tract Anxiety Arthritis Blood transfusion abn reaction or complication, no procedure mishap BMI 31.0-31.9,adult BMI 32.0-32.9,adult BMI 34.0-34.9,adult BMI 37.0-37.9, adult BMI greater than 30 Chronic back pain Chronic headaches Depression Diverticulitis Diverticulosis Gallbladder disease Hemorrhoids Hyperlipidemia Hypertension Numbness of face Ovarian cyst Seizure Seizures Sleep apnea Uterine fibroid Surgical History Surgical History H/O dilation and curettage H/O endoscopy H/O vein stripping History of appendectomy Hx of cholecystectomy Hx of colectomy A[facility]ER Sigmoid colectomy on 06/05/22 Previous section Family History Family History Father Heart disease Hypertension Diabetes mellitus Mother Diabetes mellitus Heart disease Sibling No problems noted. Grandparent Breast cancer Other Cancer Cerebrovascular accident Social History Social History Smoking packs per day: 1 Smoking cigarettes per day: 20.0 Years smoked: 7 Smoking pack-years: 7.00 Smoking status: Current every day smoker Tobacco type: cigarettes and e-cigarettes/vaping Second hand tobacco smoke exposure: Yes (SPOUSE) Smoking end date: 07/29/22 Additional smoking assessment comments: QUIT SMOKING CIG 03/2022, SWITCHED TO VAPING-OFF AND ON ALL DAY Alcohol intake: current Drinks per week: 1 Alcohol use details: social Substance use: never Substance use type: does not use Lack of Transportation: No Lack of Food: Never True Current Housing: I Have Housing Concerned About Future Housing: No Difficulty Paying Gas/Electric Bills: No Difficulty Paying for Meds: No Currently Unemployed: No Education: High School Diploma/GED Difficulty w/ Childcare or Family Care: No Living arrangements: with family Additional living arrangemen
[2023-04-21] MEDS: ACETAMINOPHEN 500 MG TABLET 1000 MG PO (08:00)
[2023-04-21] MEDS: KETOROLAC 15 MG/ML VIAL (*BKC) IV PUSH (08:00)
[2023-04-21] MEDS: LACTATED RINGERS 1,000 ML 30 ML IV CONT ×2 (08:00→14:03)
[2023-04-21] MEDS: ceFAZolin 2 GM/D5W 50 ML 2 GM/50 ML BAG IVPB (08:15)
[2023-04-21] MEDS: BUPIVACAINE/EPINEPHRINE 0.5% 50 ML VIAL INFILTRATE (08:46)
[2023-04-21] MEDS: ceFAZolin SODIUM 1 GM VIAL 2 GM IV PUSH (12:15)
--- NOTE | 2023-04-21 13:37 | SUR.OPER ---
200mL of clear yellow urine drained from doyle
--- NOTE | 2023-04-21 13:52 | W.PM.PROC2 ---
Procedure Note - Detailed Date of Procedure 04/21/23 Pre-op Diagnosis incisional hernia with defect measuring approximately 9 cm, lateralization of the rectus muscles Post-op Diagnosis Same Procedure Performed exploratory laparotomy, reduction of incisional hernia, lysis of adhesions approximately 45 minutes, transversus abdominis release, repair of incarcerated incisional hernia with defect measuring 9 cm with Bard Soft mesh measuring 30.5 x 30.5 cm placed in the retro rectus position Surgeon Jessica Garcia MD Tax Map Technician Behzad Ingram Anesthesia General Indications 42-year-old female presenting with a large incisional hernia status post sigmoid colectomy. Preoperative imaging was significant for a large defect with lateralization of the rectus muscles. Findings 9 cm hernia defect, unable to pull fascia together in midline with subsequent posterior component release, fascia came together easily after transversalis abdominis release Description of Procedure The patient was taken to the operating room placed in the supine position. After adequate induction of general anesthesia the patient was prepped and draped in the normal sterile fashion. A time-out was then done to verify the patient's identity as well as the procedure being performed. The procedure by making an incision in the midline including incorporating the previous midline incision. At this point I encountered a very large hernia sac, and I was able to dissect around the hernia sac. I was able to clear fascia entirely around the sac, including superior and inferiorly. The hernia sac was noted to contain both large and small intestine. I then excised the hernia sac. The lysis of adhesions to allow reduction took approximately 45 minutes. At this point, I was left with an 9 cm defect in the lower abdominal midline. I was unable to bring the fascial edges together given the large size of the hernia. My partner, Dr. Wen was called to assist with component release. We began by doing a posterior component release bilaterally. This was done by carefully taking down the posterior fascia. We were able to establish this plane, however, the fascia was noted to be very thin. Multiple small defects were made in the fascia during this dissection. This dissection was carried superiorly to the level of the ribs and xiphoid, and down to the space of Retzius. Once the component separation was done, we tried to pull the fascia back together at the midline. There was release of a couple of cm bilaterally, however, I was still unable to close the fascia at the midline. The decision was then made to do a transversalis abdominis release. Given the complexity of this for least and the difficult anatomy that was encounter, Dr. Ingram was called to assist with the release. This release was done by finding the transversalis fibers 1st on the right side in our posterior flap. This was done superiorly at about the level of the last rib. The release was started approximately 1 cm medial to neurovascular bundles. Once these fibers were identified, a release was accomplished by taking down these fibers with the Bovie cautery. This release was done superiorly to the level of the rib, and inferiorly to the level of pubis. Once the right-sided completed, I noted a substantial release on the right of at least 6 cm. The fascia at the midline was still very tight to bring together and the decision was made to proceed with left-sided release. Again, the transversalis fibers were identified in our posterior flap. Using very careful dissection the transversalis abdominis muscle fibers were released using the Bovie cautery. Once again, this was carried superiorly to the level of the rib and inferiorly to the pubis. Once this release was completed, I was able to easily bring together the fascia in the midline. An additional 5-6 cm was gained on the left-sided release. Of note, both the areas of release were very tedious and mul
[2023-04-21] MEDS: ONDANSETRON INJ 4 MG/2 ML VIAL IV PUSH ×3 (14:52→21:15)
--- NOTE | 2023-04-21 15:45 | ADMGEN ---
This patient, Devi Chow, was admitted to 3 [facility] Surg Room 320-01. Patient/family oriented to hospital policies and general routines including ID bracelet, bed and alarms, visiting hours, pain management, procedures, bathroom and other care routines, personal items, smoking policy, room service/diet, and visiting hours. Information on how to activate the Rapid Response Team has been discussed. Patient/Family are encouraged to report perceived risks to care and to ask questions if they do not understand what they are told or what they should do.
[2023-04-21] MEDS: PANTOPRAZOLE 40 MG TABLET PO (16:09)
[2023-04-21] MEDS: MORPHINE SULFATE (*CRX) 4 MG/ML INJ IV PUSH ×2 (16:09→21:15)
[2023-04-21] MEDS: CIPROFLOXACIN 400 MG/D5W 200ML 200 ML 200 MG IVPB (16:09)
[2023-04-21] MEDS: lamoTRIgine 100 MG, lamoTRIgine 50 MG 150 MG PO (21:17)
[2023-04-21] MEDS: AMITRIPTYLINE HCL 25 MG TABLET PO (21:17)
[2023-04-21] MEDS: amLODIPine BESYLATE 5 MG TABLET PO (21:19)
[2023-04-22] VITALS (9 sets, daily range): BP systolic 118–143; BP diastolic 76–93; PULSE 100–122; RESP 18–30; TEMP 36.6–37.4; O2SAT 92–96
[2023-04-22] MEDS: MORPHINE SULFATE (*CRX) 4 MG/ML INJ IV PUSH ×3 (03:52→16:13)
[2023-04-22] MEDS: CIPROFLOXACIN 400 MG/D5W 200ML 200 ML 200 MG IVPB ×2 (03:58→16:15)
[2023-04-22 07:18] LABS: Hemoglobin 11.9 g/dL (12.0-15.0); Mean Corpuscular Hemoglobin 31.6 pg (26-34); Mean Corpuscular Volume 92.8 fl (80-100); Mean Platelet Volume 9.1 fl (7.4-10.4); Platelet Count Result 369 k/mm3 (150-375); Red Blood Count 3.77 M/mm3 (4.2-5.4); Red Cell Distribution Width 12.1 % (11.5-14.5); White Blood Count 13.8 K/mm3 (4.5-10.0)
[2023-04-22 07:26] LABS: Anion Gap 8 mmol/L (8-16); Blood Urea Nitrogen 7 mg/dL (7-17); Calcium 8.7 mg/dL (8.4-10.2); Carbon Dioxide 26 mmol/L (22-30); Chloride 101 mmol/L (98-107); Estimated CRCL calculation 132 ml/min; Estimated Glomerular Filt Rate > 60; Glucose 135 mg/dL (65-110); Potassium 3.8 mmol/L (3.4-5.0); Sodium 135 mmol/L (137-145)
--- NOTE | 2023-04-22 07:55 | WPDANESPN ---
Anes - Prog Note Post-Op Date/Time: 04/22/23 07:55 Cardiovascular status: normal Respiratory status: normal Airway patency: baseline Mental status: baseline Post-Op hydration status: normal Vital Signs: Last Vital Signs Temp 37.1 C 04/22/23 04:00 Pulse 115 H 04/22/23 04:00 Resp 20 04/22/23 04:00 BP 131/85 04/22/23 04:00 Pulse Ox 94 04/22/23 04:00 O2 Del Method Nasal Cannula 04/21/23 21:05 O2 Flow Rate 1 04/21/23 21:05 FiO2 24 04/21/23 21:00 Pain Score (VAS): 5 I/O: Intake & Output 04/21/23 04/21/23 04/22/23 15:59 23:59 07:59 Intake Total 350 260 550 Output Total 541 039 3222 Balance 200 -590 -990 Laboratory Tests 04/22/23 06:55 04/22/23 06:55 04/22/23 06:55 WBC 13.8 H RBC 3.77 L Hgb 11.9 L Hct 35.0 L MCV 92.8 MCH 31.6 MCHC 34.0 RDW 12.1 Plt Count 369 MPV 9.1 Sodium 135 L Potassium 3.8 Chloride 101 Carbon Dioxide 26 Anion Gap 8 BUN 7 Creatinine 0.60 L Estim Creat Clear Calc 132 Estimated GFR > 60 Glucose 135 H Calcium 8.7 Post-procedural complaints: none Patient Feedback: Patient satisfied with anesthetic care.
[2023-04-22] MEDS: LOSARTAN POTASSIUM 50 MG TABLET PO (09:36)
[2023-04-22] MEDS: MULTIVITAMINS THERAPEUTIC TAB (*BKC) 1 TABLET PO (09:36)
[2023-04-22] MEDS: PANTOPRAZOLE 40 MG TABLET PO ×2 (09:36→16:14)
[2023-04-22] MEDS: ENOXAPARIN 40 MG/0.4 ML SYRINGE SUB-Q (09:36)
[2023-04-22] MEDS: KETOROLAC 30 MG/ML VIAL (*BKC) IV PUSH ×2 (11:39→17:45)
[2023-04-22] MEDS: SODIUM CHLORIDE 0.9% IV 1,000 ML 125 ML IV CONT (11:39)
--- NOTE | 2023-04-22 14:59 | PM.PNGS ---
Progress Note: A&P Assessment and Plan (1) Incisional hernia: Qualifiers: Obstruction and gangrene presence: without obstruction or gangrene Qualified Code(s): K43.2 - Incisional hernia without obstruction or gangrene Code(s): K43.2 - Incisional hernia without obstruction or gangrene Status: Acute Assessment and Plan: Doing well postop day 1. Start increasing activity, up to chair and ambulate in the room/halls if feeling more steady later this evening. Remove doyle catheter per nursing protocol later today or tomorrow Continue clear liquids Monitor SALAS drains Plan I have discussed the patient's case and plan of care with Dr. Garcia. Subjective Subjective Date/Time Seen: 04/22/23 14:59 Post Op day: 1 (exploratory laparotomy, reduction of incisional hernia, lysis of adhesions approximately 45 minutes, transversus abdominis release, repair of incarcerated incisional hernia with defect measuring 9 cm with Bard Soft mesh measuring 30.5 x 30.5 cm placed in the retro rectus position) Patient reports: tolerating liquids well, no flatus, no bowel movement and afebrile Interval history: Chart reviewed. Patient seen this afternoon. She was up to the chair for the first time since surgery. She still has her doyle catheter in place. When transferring to the chair, she felt like her knees were going to buckle and her legs would give out on her. She is concerned about having her doyle out yet until she feels steady with ambulating/transferring. She has incisional pain with movement as expected, but feels this is controlled with her current pain medication. No nausea or vomiting. No other specific complaints at this time. Review of Systems Review of Systems: All systems reviewed & are unremarkable except as noted in HPI and below Constitutional: Constitutional: Reports as per HPI, Reports no additional constitutional complaints, Denies chills and Denies fever(s) Cardiovascular: Cardiovascular: Reports no additional cardiovascular complaints, Denies chest pain and Denies leg edema Respiratory: Respiratory: Reports no additional respiratory complaints, Denies cough and Denies dyspnea Gastrointestinal: Gastrointestinal: Reports as per HPI and Reports no additional gastrointestinal complaints Neurologic: Reports system reviewed and no additional complaints, except as documented, Denies Abnormal speech present, Denies headache(s) and Denies focal weakness Exam Const: General: comfortable, no acute distress and awake Orientation/consciousness: patient oriented x3 Resp: Effort & Inspection: normal respiratory effort Auscultation: clear to auscultation bilaterally Cardio: Rate: regular rate Rhythm: regular rhythm GI: Inspection: non-distended, incision (abdominal binder in place, incision dressing dry and intact) and other (bilateral SALAS drains with serosanguineous drainage) GI Palp: Yes Soft to palpation, Yes Tenderness to palpation present (GI) and No Guarding due to palpation present (GI) Auscultation: Hypoactive bowel sounds present Urinary Catheter: Urinary Catheter: patent and draining and urine clear Neuro: General: moves all extremities and no focal motor deficits Extrem: General: no calf tenderness and no edema Psych: Mental Status: mental status grossly normal Insight: Good insight present (Psych) Objective Data Vital Signs Vital Signs: Vital Signs - 24 hr 04/21/23 15:00 04/21/23 15:05 04/21/23 15:10 Temperature Pulse Rate 116 H Respiratory Rate 18 Blood Pressure 147/85 H Pulse Oximetry 98 88 L Oxygen Delivery Simple Face Mask Room Air Nasal Cannula Oxygen Flow Rate 6 2 Fraction of Inspired Oxygen 04/21/23 15:15 04/21/23 15:30 04/21/23 15:55 Temperature 97.9 F Pulse Rate 121 H 121 H 123 H Respiratory Rate 20 20 22 H Blood Pressure 142/86 H 133/82 148/86 H Pulse Oximetry 90 93 92 Oxygen Delivery Nasal Cannula Nasal Cannula Oxygen Flow Rate 3 3 Fraction of
[2023-04-22] MEDS: amLODIPine BESYLATE 5 MG TABLET PO (20:19)
[2023-04-22] MEDS: lamoTRIgine 100 MG, lamoTRIgine 50 MG 150 MG PO (20:19)
[2023-04-22] MEDS: AMITRIPTYLINE HCL 25 MG TABLET PO (20:20)
[2023-04-23] VITALS (7 sets, daily range): BP systolic 129–143; BP diastolic 72–81; PULSE 113–130; RESP 18–22; TEMP 36.3–37.3; O2SAT 84–98
[2023-04-23] MEDS: KETOROLAC 30 MG/ML VIAL (*BKC) IV PUSH ×5 (00:26→23:30)
[2023-04-23] MEDS: SODIUM CHLORIDE 0.9% IV 1,000 ML 125 ML IV CONT (05:05)
[2023-04-23] MEDS: CIPROFLOXACIN 400 MG/D5W 200ML 200 ML 200 MG IVPB ×2 (05:09→16:00)
[2023-04-23 06:13] LABS: Hematocrit 34.2 % (37.0-47.0); Hemoglobin 11.4 g/dL (12.0-15.0); Mean Corpuscular HGB Conc 33.3 g/dl (32-36); Mean Corpuscular Hemoglobin 31.5 pg (26-34); Mean Corpuscular Volume 94.5 fl (80-100); Mean Platelet Volume 8.9 fl (7.4-10.4); Platelet Count Result 323 k/mm3 (150-375); Red Blood Count 3.62 M/mm3 (4.2-5.4); Red Cell Distribution Width 12.3 % (11.5-14.5); White Blood Count 13.2 K/mm3 (4.5-10.0)
[2023-04-23 06:26] LABS: Anion Gap 6 mmol/L (8-16); Blood Urea Nitrogen 8 mg/dL (7-17); Calcium 8.5 mg/dL (8.4-10.2); Carbon Dioxide 28 mmol/L (22-30); Chloride 102 mmol/L (98-107); Estimated CRCL calculation 114 ml/min; Estimated Glomerular Filt Rate > 60; Glucose 127 mg/dL (65-110); Potassium 3.8 mmol/L (3.4-5.0); Sodium 136 mmol/L (137-145)
[2023-04-23] MEDS: PANTOPRAZOLE 40 MG TABLET PO ×2 (09:21→17:15)
[2023-04-23] MEDS: LOSARTAN POTASSIUM 50 MG TABLET PO (09:21)
[2023-04-23] MEDS: polyethylene glycoL 3350 17 GM POWD.PACK PO (09:21)
[2023-04-23] MEDS: MULTIVITAMINS THERAPEUTIC TAB (*BKC) 1 TABLET PO (09:21)
[2023-04-23] MEDS: ENOXAPARIN 40 MG/0.4 ML SYRINGE SUB-Q (09:25)
[2023-04-23] MEDS: MORPHINE SULFATE (*CRX) 2 MG/ML INJ IV PUSH (10:58)
--- NOTE | 2023-04-23 13:53 | PM.PNGS ---
Progress Note: A&P Assessment and Plan (1) Incisional hernia: Qualifiers: Obstruction and gangrene presence: without obstruction or gangrene Qualified Code(s): K43.2 - Incisional hernia without obstruction or gangrene Code(s): K43.2 - Incisional hernia without obstruction or gangrene Status: Acute Assessment and Plan: exam improved, cont clears for now, dc doyle, cont OOB/IS Subjective Subjective Date/Time Seen: 04/23/23 13:53 Interval history: feels better, still quite sore, magdiel clears, has been up and ambulating quite a bit today Review of Systems Review of Systems: All systems reviewed & are unremarkable except as noted in HPI and below Exam Const: General: cooperative, comfortable and no acute distress Resp: Auscultation: clear to auscultation bilaterally Cardio: Rate: tachycardic Rhythm: regular rhythm GI: Inspection: normal to inspection, distended and incision GI Palp: Yes abdominal tenderness, Yes Soft to palpation, Yes Tenderness to palpation present (GI), No Guarding due to palpation present (GI) and No Rigid due to palpation Objective Data Vital Signs Vital Signs: Vital Signs - 24 hr 04/22/23 16:29 04/22/23 16:00 04/22/23 20:00 Temperature 37.2 C 37.4 C Pulse Rate 117 H 117 H 117 H Respiratory Rate 30 H 30 H Blood Pressure 142/76 H 118/76 Pulse Oximetry 94 96 94 Oxygen Delivery Room Air Oxygen Flow Rate Fraction of Inspired Oxygen 24 04/22/23 21:42 04/23/23 06:00 04/23/23 08:23 Temperature 37.4 C 37.3 C Pulse Rate 116 H 122 H Respiratory Rate 18 20 Blood Pressure 139/81 136/72 Pulse Oximetry 92 92 93 Oxygen Delivery Nasal Cannula Oxygen Flow Rate 3 Fraction of Inspired Oxygen 04/23/23 08:06 04/23/23 08:57 04/23/23 10:05 Temperature Pulse Rate 113 H Respiratory Rate 18 Blood Pressure 129/73 Pulse Oximetry 95 Oxygen Delivery Nasal Cannula Nasal Cannula Oxygen Flow Rate 3 3 Fraction of Inspired Oxygen 04/23/23 08:00 Temperature Pulse Rate Respiratory Rate Blood Pressure Pulse Oximetry 98 Oxygen Delivery Room Air Oxygen Flow Rate Fraction of Inspired Oxygen Intake/Output Intake/Output: Intake & Output 04/20/23 04/21/23 04/22/23 10/04/23 23:59 23:59 23:59 23:59 Intake Total 610 3126 788 Output Total 4316 3229 7462 Balance -301 -125 -6596 Meds/Results Medications: Active Medications Generic Name Dose Route Start Last Admin Trade Name Freq PRN Reason Stop Dose Admin Amitriptyline HCl 25 mg 04/21/23 21:00 04/22/23 20:20 Amitriptyline Hcl 25 Mg Tablet PO 25 mg QHS BRIANA Administration Amlodipine Besylate 5 mg 04/21/23 21:00 04/22/23 20:19 Amlodipine Besylate 5 Mg Tablet PO 5 mg HS BRIANA Administration Diphenhydramine HCl 25 mg 04/21/23 15:40 Diphenhydramine Hcl Inj 50 Mg/Ml Vial IV PUSH Q6H PRN Itching Enoxaparin Sodium 40 mg 04/22/23 09:00 04/23/23 09:25 Enoxaparin 40 Mg/0.4 Ml Syringe SUB-Q 40 mg DAILY BRIANA Administration Ciprofloxacin/Dextrose 200 mls @ 200 mls/hr 04/21/23 16:00 04/23/23 05:09 Cipro 400 Mg/D5w 200 Ml IVPB 200 mls/hr Q12H BRIANA Administration Sodium Chloride 1,000 mls @ 125 mls/hr 04/22/23 10:30 04/23/23 05:05 Normal Saline Iv IV CONT 125 mls/hr .Q8H BRIANA Administration Ketorolac Tromethamine 30 mg 04/22/23 10:30 04/23/23 12:27 Ketorolac 30 Mg/Ml Vial (*Bkc) IV PUSH 30 mg Q6HR BRIANA Administration Lamotrigine 100 mg/ 150 mg 04/21/23 21:00 04/22/23 20:19 Lamotrigine 50 mg PO 150 mg HS BRIANA Administration Loratadine 10 mg 04/21/23 15:45 Loratadine 10 Mg Tablet PO HS PRN Allergy Symptoms Losartan Potassium 50 mg 04/22/23 09:00 04/23/23 09:21 Losartan Potassium 50 Mg Tablet PO 50 mg QAM BRIANA Administration Morphine Sulfate 2 mg 04/21/23 15:40 04/23/23 10:58 Morphine Sulfate (*Crx) 2 Mg/Ml Inj IV PUSH 2 mg Q2H PRN Administration
[2023-04-23] MEDS: lamoTRIgine 100 MG, lamoTRIgine 50 MG 150 MG PO (21:14)
[2023-04-23] MEDS: CYCLOBENZAPRINE HCL 10 MG TABLET PO (21:14)
[2023-04-23] MEDS: AMITRIPTYLINE HCL 25 MG TABLET PO (21:14)
[2023-04-23] MEDS: DOCUSATE SODIUM 100 MG CAPSULE PO (21:14)
[2023-04-23] MEDS: amLODIPine BESYLATE 5 MG TABLET PO (21:15)
--- NOTE | 2023-04-23 21:37 | PC.NURSE ---
Called on-call for general surgery at this time. Spoke with Dr. Ingram. Discussed patient's new need for o2, SOB, crackles in lungs, and increased HR. New orders received for STAT EKG, STAT Blood Gases, STAT Chest XR, and urgent hospitalist consult.
--- NOTE | 2023-04-23 21:40 | ECG_ITS ---
Measurements Intervals [place] Rate: 120 P: 64 TN: 165 QRS: 40 QRSD: 76 T: 68 QT: 339 QTc: 479 Interpretive Statements SINUS TACHYCARDIA CANNOT RULE OUT SEPTAL MYOCARDIAL INFARCTION , OF INDETERMINATE AGE [40+ ms Q WAVE IN V1/V2] COMPARED TO ECG 01/02/2023 12:10:06 SINUS TACHYCARDIA NOW PRESENT Electronically Signed On 04-24-2023 12:42:53 CDT by Triny Mesa M.D.
[2023-04-23 22:12] LABS: Alveolar/Arterial O2 Gradient 91.8 mmHg; Base Excess ABG 0.5 mEq/l (+/-2.0); Device NASAL CANNULA; Fractional Inspired Oxygen 28 %; HCO3 ABG 24.2 mEq/l (22.0-26.0); Modified Allen's Test Pass; Oxygen Content ABG 16.1 %vol (16.0-22.0); Oxygen Saturation ABG 93.7 % (95.0-100.0); Oxyhemoglobin 92.3 % THb (90.0-100.0); PCO2 ABG 36.1 mmHg (35.0-45.0); PO2 ABG 65.2 mmHg (80.0-100.0); PO2 FiO2 Ratio Arterial Blood 2.33 %; Site Drawn RIGHT RADIAL; Total Hemoglobin 12.4 g/dL (12.0-18.0); pH ABG 7.445 (7.350-7.450)
--- NOTE | 2023-04-23 22:40 | PC.NURSE ---
Spoke with Sabiha Wright NP to consult for patient. Updated on results of Dr. Ingram's orders. No new orders given. Sabiah says she will update orders.
[2023-04-23 23:28] LABS: D Dimer 1.63 ug/mL (<0.48)
[2023-04-23 23:39] LABS: CRP 16.4 mg/dL (<1.0); NT Pro B Type Natriuretic Pept 63 pg/mL (19.9-100); Troponin I < 0.012 ng/mL (0.000-0.034)
[2023-04-23 23:43] LABS: Procalcitonin 0.1 ng/mL
[2023-04-24] VITALS (11 sets, daily range): BP systolic 112–137; BP diastolic 70–86; PULSE 94–127; RESP 16–22; TEMP 35.8–36.6; O2SAT 95–100
[2023-04-24 00:17] LABS: SARS-CoV-2 RNA PCR Negative (Negative)
--- NOTE | 2023-04-24 01:46 | PM.IMCN ---
Assessment and Plan Assessment and plan (1) Hypoxia: Code(s): R09.02 - Hypoxemia Status: Acute (2) History of incisional hernia repair: Code(s): Z98.890 - Other specified postprocedural states; Z87.19 - Personal history of other diseases of the digestive system Status: Acute Plan Problem List 1. hypoxia EKG: formal read in AM, no STEMI or ST changes from prior D-dimer: 1.63 Troponin: negative ABG: pH normal at 7.445, pO2 65.2, and O2 93.7 CRP: 16.4 procalcitonin: 0.1 COVID test: Negative oxygen administration: 94% on 2L, increased to 4 L per surgery request shared decision making with general surgery on proceeding with anticoagulation: Hold until V/Q scan increase IS use and encourage coughing abnormal expiratory sound: trial levalbuterol neb x1 Lovenox initiated postop CBC and BMP in AM 2. status post incisional hernia repair currently being managed by General Surgery. continuation of clear fluids discontinuation of Lr continued observation incentive spirometer. Diet: clear liquid GI Prophylaxis: pantoprazole DVT Prophylaxis: SCD, Lovenox Lines: pIV Code Status: Full Code Critical Care Time: I personally spent 40 minutes of direct patient care including (but not limited to) the physical examination, decision-making, bedside evaluation, review of medical records, review of labs and imaging, discussion with nursing staff and other providers for collaborative, critical care management of this patient. HPI Data of Consult Consult date: 04/24/23 Requesting Physician: Jessica Garcia MD Primary Care Provider: Diomedes Seals MD Consult Narrative Reason for consult: Change in Patient Condition Narrative: Devi Chow is a 42 year old female who underwent an incisional hernia repair on 04/21/23. Patient with no immediate postop complications. Per chart review, exam had improved. Plan was for continuation of clear fluids, discontinuation of Lr, continued observation and incentive spirometer. However last night patient became acutely short of breath, with new oxygen requirement. Patient was satting 84% on room air. Placed on 2 L nasal cannula with improvement of sat, 94%. On exam patient has new crackles bilaterally. General surgery was contacted and consult was placed due to change in patient's condition. Review of Systems Review of Systems: All systems reviewed & are unremarkable except as noted in HPI and below PMFSH Past Medical History Medical History (Updated 04/24/23 @ 01:52 by Sabiha Wright APRN) Abnormal endoscopy of upper gastrointestinal tract Anxiety Arthritis Blood transfusion abn reaction or complication, no procedure mishap BMI greater than 30 Chronic back pain Chronic headaches Depression Diverticulitis Diverticulosis Gallbladder disease Hemorrhoids Hyperlipidemia Hypertension Numbness of face Ovarian cyst Seizures Sleep apnea Uterine fibroid Surgical History Surgical History (Updated 04/24/23 @ 01:52 by Sabiha Wright APRN) H/O dilation and curettage H/O endoscopy H/O vein stripping History of appendectomy Hx of cholecystectomy Hx of colectomy AMBER Sigmoid colectomy on 06/05/22 Previous section Family History Family History Father Heart disease Hypertension Diabetes mellitus Mother Diabetes mellitus Heart disease Sibling No problems noted. Grandparent Breast cancer Other Cancer Cerebrovascular accident Social History Social History Smoking packs per day: 1 Smoking cigarettes per day: 20.0 Years smoked: 7 Smoking pack-years: 7.00 Smoking status: Current every day smoker Second hand tobacco smoke exposure: Yes (SPOUSE) Additional smoking assessment comments: QUIT SMOKING CIG 03/2022, SWITCHED TO VAPING-OFF AND ON ALL D
[2023-04-24] MEDS: LEVALBUTEROL NEB 1.25 MG/3 ML INHALATION (02:45)
[2023-04-24] MEDS: CIPROFLOXACIN 400 MG/D5W 200ML 200 ML 200 MG IVPB (03:21)
[2023-04-24] MEDS: SODIUM CHLORIDE 0.9% IV 1,000 ML 125 ML IV CONT ×4 (03:22→03:23)
[2023-04-24] MEDS: KETOROLAC 30 MG/ML VIAL (*BKC) IV PUSH ×3 (05:29→17:01)
[2023-04-24 06:29] LABS: Hematocrit 31.7 % (37.0-47.0); Hemoglobin 10.3 g/dL (12.0-15.0); Mean Corpuscular HGB Conc 32.5 g/dl (32-36); Mean Corpuscular Hemoglobin 31.5 pg (26-34); Mean Corpuscular Volume 96.9 fl (80-100); Mean Platelet Volume 9.1 fl (7.4-10.4); Platelet Count Result 318 k/mm3 (150-375); Red Blood Count 3.27 M/mm3 (4.2-5.4); Red Cell Distribution Width 12.3 % (11.5-14.5); White Blood Count 9.7 K/mm3 (4.5-10.0)
[2023-04-24 06:39] LABS: Anion Gap 7 mmol/L (8-16); Blood Urea Nitrogen 9 mg/dL (7-17); Calcium 8.1 mg/dL (8.4-10.2); Carbon Dioxide 26 mmol/L (22-30); Chloride 104 mmol/L (98-107); Estimated CRCL calculation 132 ml/min; Estimated Glomerular Filt Rate > 60; Glucose 105 mg/dL (65-110); Potassium 3.7 mmol/L (3.4-5.0); Sodium 137 mmol/L (137-145)
--- NOTE | 2023-04-24 07:44 | PM.PNGS ---
Progress Note: A&P Assessment and Plan (1) Incisional hernia: Qualifiers: Obstruction and gangrene presence: without obstruction or gangrene Qualified Code(s): K43.2 - Incisional hernia without obstruction or gangrene Code(s): K43.2 - Incisional hernia without obstruction or gangrene Status: Acute Assessment and Plan: doing well, cont routine postop care, will ADAT, cont OOB /IS (2) Hypoxia: Code(s): R09.02 - Hypoxemia Status: Acute Assessment and Plan: better this am, await V/Q scan, cont IS Subjective Subjective Date/Time Seen: 04/24/23 07:44 Interval history: acute hypoxia overnight, feels better this am, c/o cough, SOB c exertion, reports abd tenderness much improved, +flatus Review of Systems Review of Systems: All systems reviewed & are unremarkable except as noted in HPI and below Exam Const: General: cooperative, comfortable and no acute distress Resp: Auscultation: diminished lung sounds Cardio: Rate: regular rate Rhythm: regular rhythm GI: Inspection: normal to inspection, distended and incision GI Palp: Yes abdominal tenderness, Yes Soft to palpation, Yes Tenderness to palpation present (GI), No Guarding due to palpation present (GI) and No Rigid due to palpation Other: SALAS x 2 c moderate s/s output Objective Data Vital Signs Vital Signs: Vital Signs - 24 hr 04/23/23 08:23 04/23/23 08:06 04/23/23 08:57 Temperature Pulse Rate 113 H Respiratory Rate 18 Blood Pressure 129/73 Pulse Oximetry 93 95 Oxygen Delivery Nasal Cannula Nasal Cannula Oxygen Flow Rate 3 3 Fraction of Inspired Oxygen 04/23/23 10:05 04/23/23 08:00 04/23/23 13:57 Temperature 36.3 C L Pulse Rate 129 H Respiratory Rate 22 H Blood Pressure 142/81 H Pulse Oximetry 98 94 Oxygen Delivery Nasal Cannula Room Air Oxygen Flow Rate 3 Fraction of Inspired Oxygen 04/24/23 00:00 04/23/23 20:00 04/23/23 21:00 Temperature 36.1 C L 36.3 C L Pulse Rate 116 H 130 H Respiratory Rate 16 20 Blood Pressure 132/76 143/78 H Pulse Oximetry 96 84 L 94 Oxygen Delivery Oxygen Flow Rate Fraction of Inspired Oxygen 04/23/23 20:00 04/24/23 02:46 04/23/23 21:00 Temperature Pulse Rate 101 H Respiratory Rate 18 Blood Pressure Pulse Oximetry 94 96 Oxygen Delivery Nasal Cannula Nasal Cannula Oxygen Flow Rate 2 3 Fraction of Inspired Oxygen 24 04/24/23 02:55 04/24/23 03:30 04/24/23 00:03 Temperature 36.6 C Pulse Rate 99 106 H 127 H Respiratory Rate 18 16 Blood Pressure 137/86 Pulse Oximetry 98 Oxygen Delivery Oxygen Flow Rate Fraction of Inspired Oxygen 04/24/23 04:00 Temperature Pulse Rate 97 Respiratory Rate Blood Pressure Pulse Oximetry Oxygen Delivery Oxygen Flow Rate Fraction of Inspired Oxygen Intake/Output Intake/Output: Intake & Output 04/21/23 04/22/23 04/23/23 04/24/23 23:59 23:59 23:59 23:59 Intake Total 610 3125 2858 2200 Output Total 1000 3945 3400 30 Balance -390 -820 -542 2170 Meds/Results Medications: Active Medications Generic Name Dose Route Start Last Admin Trade Name Freq PRN Reason Stop Dose Admin Amitriptyline HCl 25 mg 04/21/23 21:00 04/23/23 21:14 Amitriptyline Hcl 25 Mg Tablet PO 25 mg QHS BRIANA Administration Amlodipine Besylate 5 mg 04/21/23 21:00 04/23/23 21:15 Amlodipine Besylate 5 Mg Tablet PO 5 mg HS BRIANA Administration Cyclobenzaprine HCl 10 mg 04/23/23 14:12 04/23/23 21:14 Cyclobenzaprine Hcl 10 Mg Tablet PO 10 mg Q8H PRN Administration Muscle Spasm Diphenhydramine HCl 25 mg 04/21/23 15:40 Diphenhydramine Hcl Inj 50 Mg/Ml Vial IV PUSH Q6H PRN Itching Docusate Sodium 100 mg 04/23/23 21:00 04/23/23 21:14 Docusate Sodium 100 Mg Capsule PO 100 mg Q12HR BRIANA Administration Enoxaparin Sodium 40 mg 04/22/23 09:00 04/23/23 09:25 Enoxaparin 40 Mg/0.4 Ml Syringe
--- NOTE | 2023-04-24 08:20 | PM.IMPN ---
Progress Note: A&P Assessment and Plan (1) Hypoxia: Code(s): R09.02 - Hypoxemia Status: Acute Assessment and Plan: 1. hypoxia EKG: formal read in AM, no STEMI or ST changes from prior D-dimer: 1.63 Troponin: negative ABG: pH normal at 7.445, pO2 65.2, and O2 93.7 CRP: 16.4 procalcitonin: 0.1 COVID test: Negative oxygen administration: 94% on 2L, increased to 4 L per surgery request shared decision making with general surgery on proceeding with anticoagulation: Hold until V/Q scan increase IS use and encourage coughing abnormal expiratory sound: trial levalbuterol neb x1 Lovenox initiated postop CBC and BMP in AM (2) History of incisional hernia repair: Code(s): Z98.890 - Other specified postprocedural states; Z87.19 - Personal history of other diseases of the digestive system Status: Acute Assessment and Plan: 2. status post incisional hernia repair currently being managed by General Surgery. continuation of clear fluids discontinuation of Lr continued observation incentive spirometer. Plan Feeding:Clear liquid diet Analgesia:IV toradol, PO Flexeril, IV morphine prn Thromboembolic prophylaxis: SCD's and prophylaxis Lovenox Ulcer prophylaxis: protonix Glycemic control: n/a Bowel regimen: colace only, miralax d/c'd by general surgery Lines: PIV Antibiotics: cipro Subjective Date/time seen: 04/24/23 08:20 Interval history: HPI obtained from chart, Devi Chow is a 42 year old female who underwent an incisional hernia repair on 04/21/23. Patient with no immediate postop complications.? Per chart review, exam had improved.? Plan was for continuation of clear fluids, discontinuation of Lr, continued observation and incentive spirometer.? However last night patient became acutely short of breath, with new oxygen requirement.? Patient was satting 84% on room air.? Placed on 2 L nasal cannula with improvement of sat, 94%.? On exam patient has new crackles bilaterally.? General surgery was contacted and consult was placed due to change in patient's condition. 04/24-patient is seen sitting up in chair getting ready to go for her V/Q scan. She is satting 98-100% on 2 L. She says that her shortness of breath has improved since last night. She denies chest pain but does state that she has a dry cough and subjective wheezing. I discussed with her a plan for V/Q scan to rule out pulmonary embolism as she recently had surgery and given her symptoms along with an elevated D-dimer, it is possible. X-ray also shows atelectasis and a right lower pleural effusion. I discussed with her the importance of being up out of bed during the daytime, and using her incentive spirometer, cough and deep breathing. She says that she has been using her IS. She is passing gas her belly is soft. She thought that her doctor was going to advance her diet. Will reach out and see if we can advance her to full liquids for dinner. Review of Systems Review of Systems: All systems reviewed & are unremarkable except as noted in HPI and below Exam Narrative: General: well appearing, well developed, well nourished, appears stated age. HEENT: normocephalic, atraumatic. Mucous membranes moist. EOMI, PERRLA, bilateral sclera anicteric, no conjunctival injection. Neck supple without JVD, lymphadenopathy, or bruit. Respiratory:diminished to bilateral bases on auscultation. No rales/rhonic/wheezes. Cardiovascular: Regular rate and rhythm, normal S1-S2 upon ascultation. No murmurs, rubs, or clicks. PMI is nondisplaced, capillary re-fill less than 3 second. Abdomen: Soft, round, no pulsatile masses, non-distended and mildly tender. No rebound, no guarding. No CVA tenderness, no hepatosplenomegaly. Abdominal binder in place Extremities: No cyanosis, clubbing, or edema present. Pulses are palpable 2/2. Active ROM to all four extremities. Neuro: Alert and orientated x 4.
[2023-04-24] MEDS: MULTIVITAMINS THERAPEUTIC TAB (*BKC) 1 TABLET PO (08:27)
[2023-04-24] MEDS: ENOXAPARIN 40 MG/0.4 ML SYRINGE SUB-Q (08:27)
[2023-04-24] MEDS: LOSARTAN POTASSIUM 50 MG TABLET PO (08:27)
[2023-04-24] MEDS: DOCUSATE SODIUM 100 MG CAPSULE PO ×2 (08:27→21:20)
[2023-04-24] MEDS: PANTOPRAZOLE 40 MG TABLET PO ×2 (08:27→17:02)
[2023-04-24] MEDS: CIPROFLOXACIN 500 MG TAB PO (17:02)
[2023-04-24] MEDS: lamoTRIgine 100 MG, lamoTRIgine 50 MG 150 MG PO (21:20)
[2023-04-24] MEDS: amLODIPine BESYLATE 5 MG TABLET PO (21:21)
[2023-04-24] MEDS: ENOXAPARIN 120 MG/0.8 ML SYRINGE 107 MG SUB-Q (21:21)
[2023-04-24] MEDS: AMITRIPTYLINE HCL 25 MG TABLET PO (21:21)
[2023-04-25] VITALS (14 sets, daily range): BP systolic 121–149; BP diastolic 62–79; PULSE 76–106; RESP 16–22; TEMP 35.7–36.6; O2SAT 93–99
--- NOTE | 2023-04-25 | ECHO_ITS ---
Patient Info Name: Devi Chow Age: 42 years : 1980 Gender: Female Ht: 68 in Wt: 235 lbs BSA: 2.30 m2 HR: 99 bpm BP: 132 / 78 mmHg Heart Rhythm: Sinus Rhythm Technical Quality: Fair Exam Date: 04/25/2023 11:17 AM Exam Location: [facility] Patient Status: Inpatient Admit Date: 04/21/2023 Staff Ordering Physician: Lashon Camacho APRN [employer] Administrator: Brittni Purvis RDCS Attending Provider: Jessica Garcia MD Referring Physician: Doug CAMPBELL; Exam Type: CA echo doppler color flow Study Info Indications - PE, Right heart strain Complete two-dimensional, color flow and Doppler transthoracic echocardiogram is performed. Summary 1. Complete two-dimensional, color flow and Doppler transthoracic echocardiogram is performed. 2. Left ventricular chamber dimension is normal. 3. Left ventricular systolic function is normal, estimated at 65-70%. 4. The left ventricular diastolic function is abnormal. 5. E/e' 11 is mildly elevated. 6. There is trace tricuspid valve regurgitation. 7. No pulmonary hypertension, estimated pulmonary arterial systolic pressure is 20 mmHg. Left Ventricle E/e' 11 is mildly elevated. Left ventricular chamber dimension is normal. Left ventricular systolic function is normal, estimated at 65-70%. The left ventricular diastolic function is abnormal. Right Ventricle Right ventricular chamber dimension is normal. Right ventricular systolic function is normal. Left Atria Left atrial chamber dimension is normal. Right Atria Right atrial chamber dimension is normal. Aortic Valve The aortic valve is trileaflet. There is no aortic valve stenosis. There is no aortic valve regurgitation. Pulmonic Valve There is no pulmonic regurgitation. Mitral Valve There is no mitral valve stenosis. There is no mitral valve regurgitation. Tricuspid Valve There is trace tricuspid valve regurgitation. No pulmonary hypertension, estimated pulmonary arterial systolic pressure is 20 mmHg. Pericardium/Pleural There is no pericardial effusion. Inferior Vena Cava Normal inferior vena cava with >50% collapse upon inspiration consistent with normal right atrial pressure, 5 mmHg. Aorta The aortic root size at the sinus of Valsalva is normal. Left Ventricular Outflow Tract Name Value Normal LVOT 2D LVOT Diameter 2.0 cm LVOT Doppler LVOT Peak Gradient 7 mmHg LVOT Mean Gradient 3 mmHg LVOT VTI 20 cm LVOT VTI/AV VTI Ratio 0.8 LVOT Stroke Volume 61 ml LVOT CO 5.6 l/min LVOT CI 2.4 l/min/m2 Pulmonic Valve Name Value Normal RVOT Doppler RVOT Peak Gradient 4 mmHg PV Doppler PV Peak Gradient 5
[2023-04-25] MEDS: CIPROFLOXACIN 500 MG TAB PO (03:59)
[2023-04-25] MEDS: LEVALBUTEROL NEB 1.25 MG/3 ML INHALATION (05:28)
[2023-04-25 06:43] LABS: Basophils Absolute Auto 0.1 K/mm3 (0.0-0.1); Basophils Percent Auto 0.6 % (0.2-1.2); Eosinophils Absolute Auto 0.4 K/mm3 (0-0.3); Eosinophils Percent Auto 4.7 % (0-4.4); Hematocrit 32.1 % (37.0-47.0); Hemoglobin 10.5 g/dL (12.0-15.0); Immature Granulocyte Absolute 0.04 K/mm3 (0.00-0.031); Immature Granulocyte Percent A 0.5 % (0-0.5); Lymphocytes Absolute Auto 1.41 K/mm3 (0.9-3.2); Lymphocytes Percent Auto 16.9 % (18.3-44.2); Mean Corpuscular HGB Conc 32.7 g/dl (32-36); Mean Corpuscular Hemoglobin 31.8 pg (26-34); Mean Corpuscular Volume 97.3 fl (80-100); Mean Platelet Volume 9.3 fl (7.4-10.4); Monocytes Absolute Auto 0.4 K/mm3 (0.1-0.6); Monocytes Percent Auto 5.3 % (2.6-8.5); Platelet Count Result 321 k/mm3 (150-375); White Blood Count 8.3 K/mm3 (4.5-10.0)
[2023-04-25 06:57] LABS: Alanine Aminotransferase 32 U/L (6-35); Albumin Level 3.6 g/dL (3.5-5.1); Alkaline Phosphatase 75 U/L (38-126); Anion Gap 3 mmol/L (8-16); Aspartate Amino Transferase 40 U/L (14-36); Bilirubin,Total 0.8 mg/dL (0.2-1.3); Blood Urea Nitrogen 10 mg/dL (7-17); Calcium 8.4 mg/dL (8.4-10.2); Carbon Dioxide 30 mmol/L (22-30); Chloride 102 mmol/L (98-107); Estimated CRCL calculation 114 ml/min; Estimated Glomerular Filt Rate > 60; Glucose 104 mg/dL (65-110); Potassium 3.6 mmol/L (3.4-5.0); Sodium 135 mmol/L (137-145)
[2023-04-25] MEDS: ENOXAPARIN 120 MG/0.8 ML SYRINGE 107 MG SUB-Q ×2 (08:33→20:59)
[2023-04-25] MEDS: DOCUSATE SODIUM 100 MG CAPSULE PO ×2 (08:33→20:59)
[2023-04-25] MEDS: MULTIVITAMINS THERAPEUTIC TAB (*BKC) 1 TABLET PO (08:33)
[2023-04-25] MEDS: LOSARTAN POTASSIUM 50 MG TABLET PO (08:33)
[2023-04-25] MEDS: PANTOPRAZOLE 40 MG TABLET PO ×2 (08:33→17:13)
--- NOTE | 2023-04-25 09:27 | ECG_ITS ---
Measurements Intervals [place] Rate: 101 P: 61 SD: 166 QRS: 33 QRSD: 78 T: 46 QT: 330 QTc: 428 Interpretive Statements SINUS TACHYCARDIA NONSPECIFIC T-WAVE ABNORMALITY ABNORMAL RHYTHM ECG COMPARED TO ECG 04/23/2023 21:52:37 NO SIGNIFICANT CHANGES Electronically Signed On 04-25-2023 14:27:40 CDT by Triny [place] M.D.
--- NOTE | 2023-04-25 09:27 | PC.NURSE ---
Pt called c/o chest pain. A few minutes later pt's visitor came to the nurses' station stating pt is c/o chest pain. Hospitalist, Lashon Camacho, contacted and made aware that pt is currently on room air (oxygen removed by respiratory) at 93%, was already given Tordol, Lovenox, and neb treatment. Hospitalist stated that she would enter orders for trops and EKG.
[2023-04-25] MEDS: LORazepam INJ (*CRX) 2 MG/ML VIAL 0.5 MG IV PUSH (09:39)
[2023-04-25 10:26] LABS: Troponin I < 0.012 ng/mL (0.000-0.034)
--- NOTE | 2023-04-25 12:11 | PM.IMPN ---
Progress Note: A&P Assessment and Plan (1) Hypoxia: Code(s): R09.02 - Hypoxemia Status: Acute Assessment and Plan: 1. hypoxia EKG: formal read in AM, no STEMI or ST changes from prior D-dimer: 1.63 Troponin: negative ABG: pH normal at 7.445, pO2 65.2, and O2 93.7 CRP: 16.4 procalcitonin: 0.1 COVID test: Negative oxygen administration: Now on room air. shared decision making with general surgery on proceeding with anticoagulation: Therapeutic Lovenox started 04/24 given intermediate read on VQ scan. increase IS use and encourage coughing abnormal expiratory sound: trial levalbuterol neb x1 CBC and BMP in AM ECHO pending to assess for right heart strain. Vitals has been stable so less concerned about this however, given her episode of chest pain today I'd like to see this resulted first before d/c. ECHO without R heart strain. Care coordination has been assisting with pre-authorization for Eliquis. Will need 7 days total of Eliquis 10 mg PO BID and then Eliquis 5 mg PO BID for a 3 month course. Added Maalox for indigestion. Can discharge when okay with surgery. (2) History of incisional hernia repair: Code(s): Z98.890 - Other specified postprocedural states; Z87.19 - Personal history of other diseases of the digestive system Status: Acute Assessment and Plan: 2. status post incisional hernia repair currently being managed by General Surgery. advanced to full liquids for dinner yesterday, 04/24. discontinuation of Lr continued observation incentive spirometer. Plan Feeding:[place], low fiber, gluten free Analgesia:IV Toradol, PO Flexeril, IV morphine prn Thromboembolic prophylaxis: SCD's and prophylaxis Lovenox Ulcer prophylaxis: Protonix Glycemic control: n/a Bowel regimen: Colace only, Miralax d/c'd by general surgery Lines: PIV Antibiotics: n/a Subjective Date/time seen: 04/25/23 12:11 Interval history: HPI obtained from chart, Devi Chow is a 42 year old female who underwent an incisional hernia repair on 04/21/23. Patient with no immediate postop complications.? Per chart review, exam had improved.? Plan was for continuation of clear fluids, discontinuation of Lr, continued observation and incentive spirometer.? However last night patient became acutely short of breath, with new oxygen requirement.? Patient was satting 84% on room air.? Placed on 2 L nasal cannula with improvement of sat, 94%.? On exam patient has new crackles bilaterally.? General surgery was contacted and consult was placed due to change in patient's condition. 04/24-patient is seen sitting up in chair getting ready to go for her V/Q scan. She is satting 98-100% on 2 L. She says that her shortness of breath has improved since last night. She denies chest pain but does state that she has a dry cough and subjective wheezing. I discussed with her a plan for V/Q scan to rule out pulmonary embolism as she recently had surgery and given her symptoms along with an elevated D-dimer, it is possible. X-ray also shows atelectasis and a right lower pleural effusion. I discussed with her the importance of being up out of bed during the daytime, and using her incentive spirometer, cough and deep breathing. She says that she has been using her IS. She is passing gas her belly is soft. She thought that her doctor was going to advance her diet. Will reach out and see if we can advance her to full liquids for dinner. 04/25-Called with a report of chest pain this morning and mild tachycardia. Ordered EKG and troponin. EKG shows ST and initial troponin is negative. Nursing and I suspect there is a component of anxiety related to her PE. The patient also expresses some anxiety. Gave IV Ativan 0.5 ml x 1 dose. She has been on room air this morning and saturating 98%. Blood pressures are stable. She has seen this afternoon in her chest pain has seemed to resolved. She does
--- NOTE | 2023-04-25 14:37 | PM.PNGS ---
Progress Note: A&P Assessment and Plan (1) History of incisional hernia repair: Code(s): Z98.890 - Other specified postprocedural states; Z87.19 - Personal history of other diseases of the digestive system Status: Acute Assessment and Plan: Doing well postop day 4. Repair is intact and wound seems to be healing well. Both SALAS drains are working with serosanguineous output from each. Patient on bland diet. Continue this diet and increase ambulation. (2) GERD (gastroesophageal reflux disease): Qualifiers: Esophagitis presence: esophagitis presence not specified Qualified Code(s): K21.9 - Gastro-esophageal reflux disease without esophagitis Code(s): K21.9 - Gastro-esophageal reflux disease without esophagitis Status: Acute Assessment and Plan: Having heartburn symptoms now. Discussed with hospitalist. Will see if she can have increased dose of proton pump inhibitor. (3) Abnormal finding on lung imaging: Code(s): R91.8 - Other nonspecific abnormal finding of lung field Status: Acute Assessment and Plan: Perfusion scan suggestive of pulmonary embolism left lobe anterobasilar segment, patient on anticoagulation. 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 No evidence of bleeding or complications surgically with anticoagulation. Subjective Subjective Date/Time Seen: 04/25/23 14:37 Post Op day: 4 Patient reports: pain is less (Complains of heartburn, minimal incisional pain), tolerating liquids well, flatus, no bowel movement and afebrile Review of Systems Review of Systems: All systems reviewed & are unremarkable except as noted in HPI and below (HPI) Exam Const: General: cooperative, comfortable, no acute distress, alert, awake and well nourished Orientation/consciousness: patient oriented x3 GI: Inspection: non-distended, incision (Dry and healing well) and other (Both SALAS drains with serosanguineous output) GI Palp: Yes Soft to palpation, Yes Tenderness to palpation present (GI) (Appropriate incisional tenderness), No Guarding due to palpation present (GI) and No Rebound tenderness present Neuro: General: patient oriented x3 and no focal motor deficits Extrem: General: no calf tenderness and no edema Psych: Affect: normal affect Insight: Good insight present (Psych) Judgement: Good judgement present (Psych) Objective Data Vital Signs Vital Signs: Vital Signs - 24 hr 04/24/23 16:00 04/24/23 20:00 04/24/23 20:00 Temperature 35.8 C L Pulse Rate 101 H 97 Respiratory Rate 18 Blood Pressure 119/72 Pulse Oximetry 100 100 Oxygen Delivery Nasal Cannula Oxygen Flow Rate 2 Fraction of Inspired Oxygen 24 04/24/23 20:00 04/25/23 00:00 04/25/23 00:00 Temperature 36.2 C L Pulse Rate 94 92 102 H Respiratory Rate 18 Blood Pressure 132/78 Pulse Oximetry 99 Oxygen Delivery Oxygen Flow Rate Fraction of Inspired Oxygen 04/25/23 04:00 04/25/23 05:29 04/25/23 05:30 Temperature Pulse Rate 94 98 Respiratory Rate 18 Blood Pressure Pulse Oximetry 96 Oxygen Delivery Nasal Cannula Oxygen Flow Rate 2 Fraction of Inspired Oxygen 04/25/23 05:35 04/25/23 04:00 04/25/23 07:16 Temperature 35.7 C L Pulse Rate 99 92 Respiratory Rate 18 16 Blood Pressure 121/77 Pulse Oximetry 99 98 Oxygen Delivery Nasal Cannula Oxygen Flow Rate 1.5 Fraction of Inspired Oxygen 26 04/25/23 08:23 04/25/23 09:35 04/25/23 08:35 Temperature 36.2 C L Pulse Rate 102 H 106 H Respiratory Rate 22 H Blood Pressure 137/78 Pulse Oximetry 93 98 Oxygen Delivery Room Air Oxygen Flow Rate Fraction of Inspired Oxygen 21 04/25/23 08:35 04/25/23 12:00 Temperature Pulse Rate 101 H Respiratory Rate Blood Pressure Pulse Oximetry 98 Oxygen Delivery Room Air O
[2023-04-25] MEDS: MAG HYDROX/AL HYDROX/SIMETH 30 ML UDC PO (14:59)
[2023-04-25] MEDS: PANTOPRAZOLE SODIUM IV 40 MG VIAL IV PUSH (15:03)
[2023-04-25 15:30] LABS: Troponin I < 0.012 ng/mL (0.000-0.034)
[2023-04-25] MEDS: AMITRIPTYLINE HCL 25 MG TABLET PO (20:59)
[2023-04-25] MEDS: lamoTRIgine 100 MG, lamoTRIgine 50 MG 150 MG PO (20:59)
[2023-04-25] MEDS: amLODIPine BESYLATE 5 MG TABLET PO (20:59)
[2023-04-25] MEDS: CYCLOBENZAPRINE HCL 10 MG TABLET PO (20:59)
[2023-04-26] VITALS: PULSE 98
[2023-04-26 00:24] VITALS: O2SAT 99
[2023-04-26 04:00] VITALS: PULSE 96
[2023-04-26 04:10] VITALS: BP 130/81; PULSE 98; RESP 16; TEMP 37.2; O2SAT 95
[2023-04-26 07:27] LABS: Basophils Absolute Auto 0.1 K/mm3 (0.0-0.1); Basophils Percent Auto 0.6 % (0.2-1.2); Eosinophils Absolute Auto 0.4 K/mm3 (0-0.3); Eosinophils Percent Auto 4.1 % (0-4.4); Hematocrit 30.5 % (37.0-47.0); Hemoglobin 10.3 g/dL (12.0-15.0); Immature Granulocyte Absolute 0.05 K/mm3 (0.00-0.031); Immature Granulocyte Percent A 0.6 % (0-0.5); Lymphocytes Absolute Auto 1.34 K/mm3 (0.9-3.2); Lymphocytes Percent Auto 15.2 % (18.3-44.2); Mean Corpuscular HGB Conc 33.8 g/dl (32-36); Mean Corpuscular Hemoglobin 31.9 pg (26-34); Mean Corpuscular Volume 94.4 fl (80-100); Mean Platelet Volume 9.2 fl (7.4-10.4); Monocytes Absolute Auto 0.5 K/mm3 (0.1-0.6); Neutrophils Absolute Auto 6.5 K/mm3 (1.3-6.7); Neutrophils Percent Auto 73.5 % (45.5-73.1); Platelet Count Result 350 k/mm3 (150-375); Red Blood Count 3.23 M/mm3 (4.2-5.4); White Blood Count 8.8 K/mm3 (4.5-10.0)
[2023-04-26 07:44] LABS: Alanine Aminotransferase 34 U/L (6-35); Albumin Level 3.6 g/dL (3.5-5.1); Alkaline Phosphatase 84 U/L (38-126); Anion Gap 6 mmol/L (8-16); Aspartate Amino Transferase 38 U/L (14-36); Bilirubin,Total 0.7 mg/dL (0.2-1.3); Blood Urea Nitrogen 10 mg/dL (7-17); Calcium 8.4 mg/dL (8.4-10.2); Carbon Dioxide 29 mmol/L (22-30); Chloride 100 mmol/L (98-107); Estimated CRCL calculation 132 ml/min; Estimated Glomerular Filt Rate > 60; Glucose 102 mg/dL (65-110); Potassium 3.4 mmol/L (3.4-5.0); Sodium 135 mmol/L (137-145)
[2023-04-26 08:40] VITALS: PULSE 105
[2023-04-26] MEDS: ENOXAPARIN 120 MG/0.8 ML SYRINGE 107 MG SUB-Q (08:42)
[2023-04-26] MEDS: MULTIVITAMINS THERAPEUTIC TAB (*BKC) 1 TABLET PO (08:42)
[2023-04-26] MEDS: LOSARTAN POTASSIUM 50 MG TABLET PO (08:42)
[2023-04-26] MEDS: DOCUSATE SODIUM 100 MG CAPSULE PO (08:42)
[2023-04-26] MEDS: PANTOPRAZOLE 40 MG TABLET PO (08:42)
--- NOTE | 2023-04-26 09:06 | PM.IMPN ---
Progress Note: A&P Assessment and Plan (1) Hypoxia: Code(s): R09.02 - Hypoxemia Status: Acute Assessment and Plan: 1. hypoxia EKG: formal read in AM, no STEMI or ST changes from prior D-dimer: 1.63 Troponin: negative ABG: pH normal at 7.445, pO2 65.2, and O2 93.7 CRP: 16.4 procalcitonin: 0.1 COVID test: Negative oxygen administration: Now on room air. shared decision making with general surgery on proceeding with anticoagulation: Therapeutic Lovenox started 04/24 given intermediate read on VQ scan. increase IS use and encourage coughing abnormal expiratory sound: trial levalbuterol neb x1 CBC and BMP in AM ECHO pending to assess for right heart strain. Vitals has been stable so less concerned about this however, given her episode of chest pain today I'd like to see this resulted first before d/c. ECHO without R heart strain. Care coordination has been assisting with pre-authorization for Eliquis. Will need 7 days total of Eliquis 10 mg PO BID and then Eliquis 5 mg PO BID for a 3 month course. Prescriptions have been added to discharge. Added Maalox for indigestion. Can discharge when okay with surgery. (2) History of incisional hernia repair: Code(s): Z98.890 - Other specified postprocedural states; Z87.19 - Personal history of other diseases of the digestive system Status: Acute Assessment and Plan: 2. status post incisional hernia repair currently being managed by General Surgery. advanced to full liquids for dinner yesterday, 04/24. discontinuation of Lr continued observation incentive spirometer. Plan Feeding:[place], low fiber, gluten free Analgesia:IV Toradol, PO Flexeril, IV morphine prn Thromboembolic prophylaxis: SCD's and treatment Lovenox Ulcer prophylaxis: Protonix Glycemic control: n/a Bowel regimen: Colace only, Miralax d/c'd by general surgery Lines: PIV Antibiotics: n/a Subjective Date/time seen: 04/26/23 09:06 Interval history: HPI obtained from chart, Devi Chow is a 42 year old female who underwent an incisional hernia repair on 04/21/23. Patient with no immediate postop complications.? Per chart review, exam had improved.? Plan was for continuation of clear fluids, discontinuation of Lr, continued observation and incentive spirometer.? However last night patient became acutely short of breath, with new oxygen requirement.? Patient was satting 84% on room air.? Placed on 2 L nasal cannula with improvement of sat, 94%.? On exam patient has new crackles bilaterally.? General surgery was contacted and consult was placed due to change in patient's condition. 04/24-patient is seen sitting up in chair getting ready to go for her V/Q scan. She is satting 98-100% on 2 L. She says that her shortness of breath has improved since last night. She denies chest pain but does state that she has a dry cough and subjective wheezing. I discussed with her a plan for V/Q scan to rule out pulmonary embolism as she recently had surgery and given her symptoms along with an elevated D-dimer, it is possible. X-ray also shows atelectasis and a right lower pleural effusion. I discussed with her the importance of being up out of bed during the daytime, and using her incentive spirometer, cough and deep breathing. She says that she has been using her IS. She is passing gas her belly is soft. She thought that her doctor was going to advance her diet. Will reach out and see if we can advance her to full liquids for dinner. 04/25-Called with a report of chest pain this morning and mild tachycardia. Ordered EKG and troponin. EKG shows ST and initial troponin is negative. Nursing and I suspect there is a component of anxiety related to her PE. The patient also expresses some anxiety. Gave IV Ativan 0.5 ml x 1 dose. She has been on room air this morning and saturating 98%. Blood pressures are stable. She has seen this afternoon in her
--- NOTE | 2023-04-26 11:55 | PM.DS ---
DS: Admitting Diagnosis Discharge Date 04/26/2023 Admitting Diagnosis Incisional hernia DS: Discharge Diagnosis Discharge Diagnosis (1) History of incisional hernia repair: Code(s): Z98.890 - Other specified postprocedural states; Z87.19 - Personal history of other diseases of the digestive system Status: Acute (2) GERD (gastroesophageal reflux disease): Qualifiers: Esophagitis presence: esophagitis presence not specified Qualified Code(s): K21.9 - Gastro-esophageal reflux disease without esophagitis Code(s): K21.9 - Gastro-esophageal reflux disease without esophagitis Status: Acute (3) Abnormal finding on lung imaging: Code(s): R91.8 - Other nonspecific abnormal finding of lung field Status: Acute (4) Hypoxia: Code(s): R09.02 - Hypoxemia Status: Acute DS: Summary Hospital Course Reason for hospitalization: Incisional hernia Hospital Course: This is a 42-year-old woman who presented with a large incisional hernia after undergoing a previous hand assisted laparoscopic sigmoid colectomy. Patient underwent exploratory laparotomy, lysis of adhesions, transversus abdominis release, and repair of incarcerated incisional with mesh 04/21/2023. Patient was admitted the hospital postoperatively for continued recovery. She had 2 drains placed at the time of surgery and these were monitored for any postoperative bleeding. Her activity was gradually advanced as tolerated and she was started on clear liquid diet and advanced as tolerated. On postoperative day 2 she became hypoxic and hospitalist was consulted for assistance with medical management. Patient has a contrast allergy therefore V/Q scan was obtained. This showed evidence of possible pulmonary embolus therefore she was started therapeutic dose Lovenox. Her hypoxia improved and she was remaining hemodynamically stable. An echocardiogram was also obtained which showed normal left ventricular systolic function and no pulmonary hypertension. She was continuing to progress over the next couple days but was experiencing some heartburn. She was started on twice daily PPI and this did appear to help improve this. On 04/26/2023 her pain was well controlled and vitals remained stable. She had moved her bowels and was tolerating her. She was discharged on 04/26/2023. Time spent discussing smoking cessation with patient: 3 to 10 minutes Status at Discharge Functional status at discharge: independent ambulation Overall status at discharge: patient is progressing back to baseline Time Spent with Patient Time attestation: Total time spent providing and/or coordinating discharge services: Time spent: Less than 30 minutes Exam Const: General: no acute distress and alert Orientation/consciousness: patient oriented x3 Resp: Effort & Inspection: normal respiratory effort Auscultation: clear to auscultation bilaterally Cardio: Rate: regular rate Rhythm: regular rhythm GI: Inspection: non-distended, incision (Intact with henri) and other (SALAS drains with minimal serosanguineous output) GI Palp: Yes Soft to palpation, Yes Tenderness to palpation present (GI) (Incisional) and No Guarding due to palpation present (GI) Auscultation: normal bowel sounds DS: Data Data Completed and Pending Completed studies during hospitalization: Pending at discharge 04/21/23 10:24 Surgical [PTH] Routine Labs on day of discharge: Labs from last 24 hours 04/26/23 04/25/23 07:00 15:01 WBC 8.8 RBC 3.23 L Hgb 10.3 L Hct 30.5 L MCV 94.4 MCH 31.9 MCHC 33.8 RDW 12.0 Plt Count 350 MPV 9.2 Immature Gran % (Auto) 0.6 H Neut % (Auto) 73.5 H Lymph % (Auto) 15.2 L [place] % (Auto) 6.0 Eos % (Auto) 4.1 Baso % (Auto) 0.6 Lymph # (Auto) 1.34 [place] # (Auto) 0.5 Eos # (Auto) 0.4 H Baso # (Auto) 0.1 Abs Immat Gran (auto) 0.05 H Absolute Neuts (auto) 6.5 Absolute Nucleated RBC 0.0 Nucleated
[2023-04-26 12:00] VITALS: PULSE 100
--- NOTE | 2023-04-26 14:25 | PC.NURSE ---
Patient called stating that the pharmacy the Eliquis was sent to does not have any in stock. Sent to pharmacy at [facility] per patients request.
== END 2023-04-26 14:20 | disposition home or self-care (01) | DRG 355 ==
LOC: ANH3MEDSUR 15:42
PROVIDERS: Internal Medicine; Nurse Practitioner Acute Care; Nurse Practitioner Family; Surgery; Admitting Provider Surgery; PCP Family Medicine; Visit Provider Surgery
PROC: 0WQF0ZZ Repair Abdominal Wall, Open Approach (ICD-10-PCS; principal; 2023-04-21 08:30)
DX: K43.2 Incisional hernia without obstruction or gangrene (principal); E66.9 Obesity, unspecified; Z68.35 Body mass index [BMI] 35.0-35.9, adult; M19.90 Unspecified osteoarthritis, unspecified site; K57.90 Diverticulosis of intestine, part unspecified, without perforation or abscess without bleeding; G47.30 Sleep apnea, unspecified; R09.02 Hypoxemia; F41.9 Anxiety disorder, unspecified; K21.9 Gastro-esophageal reflux disease without esophagitis; I10 Essential (primary) hypertension; E78.5 Hyperlipidemia, unspecified; F17.210 Nicotine dependence, cigarettes, uncomplicated; Z20.822 Contact with and (suspected) exposure to COVID-19; Z90.49 Acquired absence of other specified parts of digestive tract; Z79.01 Long term (current) use of anticoagulants
CPT/HCPCS: 36415; 36600; 71045; 78582; 80048; 80053; 82805; 83735; 83880; 84145; 84484; 85025; 85027; 85380; 86140; 87635; 88302; 93005; 93306; 94640; 97110; 97116; 97161; 97165; 97530; 97535; A9270; A9540; A9558; C1781; C9113; J0690; J0744; J1100; J1170; J1650; J1885; J2060; J2250; J2270; J2405; J2704; J3010; J7030; J7120

== ENCOUNTER 2023-04-29 08:52 | Outpatient (CLI) | payer OTHER, MEDICAID, SELFPAY ==
--- NOTE | ~2023-04-29 | MM_ITS ---
EXAMINATION: MM screening [facility] BI w milo HISTORY: Screening mammogram TECHNIQUE: Craniocaudal and mediolateral oblique 3-D tomosynthesis images were obtained and synthetic 2-D images were generated. CAD analysis was submitted and interpreted. COMPARISON: 04/2022, 02/09/2021 bilateral screening mammogram examination BREAST PARENCHYMAL COMPOSITION: There are scattered areas of fibroglandular density. FINDINGS: Right breast: There is no evidence of suspicious mass, calcification, or architectural distortion to suggest malignancy in the right breast. There has been no suspicious interval change. Left breast: Asymmetry is noted in the posterior mid to upper outer left breast. Diagnostic left mamm ogram and left breast ultrasound examination are recommended. IMPRESSION: 1. Left mammographic asymmetry 2. Diagnostic left mammogram and left breast ultrasound examination are recommended BI-RADS Category 0: Incomplete: Needs additional imaging evaluation. Reviewed, dictated and finalized at location A. IMPRESSION: 1. Left mammographic asymmetry 2. Diagnostic left mammogram and left breast ultrasound examination are recomme nded BI-RADS Category 0: Incomplete: Needs additional imaging evaluation.
== END 2023-04-29 08:53 | disposition home or self-care (01) ==
PROVIDERS: PCP Family Medicine; Visit Provider Nurse Practitioner Obstetrics & Gynecology
DX: Z12.31 Encounter for screening mammogram for malignant neoplasm of breast (principal); R92.8 Other abnormal and inconclusive findings on diagnostic imaging of breast
CPT/HCPCS: 77063; 77067

== ENCOUNTER 2023-05-06 21:49 | Emergency (ER) | payer OTHER, MEDICAID, SELFPAY ==
--- NOTE | ~2023-05-06 | XR_ITS ---
EXAMINATION: XR chest 2V DATE: 05/06/2023 22:27 INDICATION: Chest pain. TECHNIQUE: Frontal and lateral views of the chest were obtained. COMPARISON: Chest single view 04/23/2023 FINDINGS: There is no pneumonia, pleural effusion, or pneumothorax. The heart size is normal. There a re surgical clips in the abdomen. IMPRESSION: 1. No acute cardiopulmonary disease. Reviewed, dictated and finalized at location E.
[2023-05-06 21:53] VITALS: BP 147/78; PULSE 95; RESP 20; TEMP 36.7; O2SAT 99
--- NOTE | 2023-05-06 22:17 | ECG_ITS ---
Measurements Intervals [place] Rate: 89 P: 52 MI: 148 QRS: 42 QRSD: 81 T: 42 QT: 343 QTc: 419 Interpretive Statements SINUS RHYTHM NORMAL ECG COMPARED TO ECG 04/25/2023 09:44:28 HEART RATE HAS DECREASED Electronically Signed On 05-07-2023 8:59:43 CDT by Varun Solorzano M.D.
[2023-05-06 22:18] VITALS: O2SAT 98
[2023-05-06 22:46] VITALS: BP 113/69; PULSE 89; RESP 19; O2SAT 100
[2023-05-06 23:01] VITALS: BP 112/79; PULSE 87; RESP 18; O2SAT 99
[2023-05-06 23:16] VITALS: BP 114/96; PULSE 81; RESP 21; O2SAT 97
[2023-05-06 23:21] LABS: Basophils Absolute Auto 0.1 K/mm3 (0.0-0.1); Basophils Percent Auto 0.7 % (0.2-1.2); Eosinophils Absolute Auto 0.5 K/mm3 (0-0.3); Eosinophils Percent Auto 4.4 % (0-4.4); Hematocrit 36.4 % (37.0-47.0); Hemoglobin 12.1 g/dL (12.0-15.0); Immature Granulocyte Absolute 0.05 K/mm3 (0.00-0.031); Immature Granulocyte Percent A 0.4 % (0-0.5); Lymphocytes Absolute Auto 2.48 K/mm3 (0.9-3.2); Lymphocytes Percent Auto 21.1 % (18.3-44.2); Mean Corpuscular HGB Conc 33.2 g/dl (32-36); Mean Corpuscular Hemoglobin 31.2 pg (26-34); Mean Corpuscular Volume 93.8 fl (80-100); Mean Platelet Volume 9.3 fl (7.4-10.4); Monocytes Absolute Auto 0.6 K/mm3 (0.1-0.6); Monocytes Percent Auto 5.4 % (2.6-8.5); Platelet Count Result 493 k/mm3 (150-375); Red Blood Count 3.88 M/mm3 (4.2-5.4); Red Cell Distribution Width 12.4 % (11.5-14.5); White Blood Count 11.8 K/mm3 (4.5-10.0)
[2023-05-06 23:30] LABS: INR 1.1; Prothrombin Time 14.7 Seconds (11.1-14.7)
[2023-05-06 23:35] LABS: Alanine Aminotransferase 32 U/L (6-35); Albumin Level 4.3 g/dL (3.5-5.1); Alkaline Phosphatase 99 U/L (38-126); Anion Gap 6 mmol/L (8-16); Aspartate Amino Transferase 33 U/L (14-36); Bilirubin,Total 0.5 mg/dL (0.2-1.3); Blood Urea Nitrogen 10 mg/dL (7-17); Calcium 8.6 mg/dL (8.4-10.2); Carbon Dioxide 27 mmol/L (22-30); Chloride 102 mmol/L (98-107); Estimated CRCL calculation 130 ml/min; Estimated Glomerular Filt Rate > 60; Glucose 100 mg/dL (65-110); Lipase 160 U/L (23-300); Potassium 3.8 mmol/L (3.4-5.0); Sodium 135 mmol/L (137-145)
[2023-05-06 23:46] LABS: Troponin I < 0.012 ng/mL (0.000-0.034)
[2023-05-07 00:16] VITALS: BP 120/81; PULSE 92; RESP 21; O2SAT 97
[2023-05-07 00:32] VITALS: BP 125/80; PULSE 89; RESP 22; O2SAT 98
[2023-05-07 00:46] VITALS: BP 123/84; PULSE 87; RESP 20; O2SAT 97
--- NOTE | 2023-05-07 00:57 | ED.GENADULT ---
HPI - General Adult General Chief complaint: Chest Pain Stated complaint: PE after hernia repair - CP and SOB today Time Seen by Provider: 05/07/23 00:37 Source: patient Mode of arrival: ambulatory Limitations: no limitations History of Present Illness HPI narrative: This is a 42-year-old female who presents to the ED with chief complaints of chest pain and shortness of breath onset this morning. She was cardiology appointment this a.m. She has recent history of possible PE on VQ scan after having hernia repair surgery. She is scheduled follow-up with Dr. Garcia tomorrow for this. Patient reports pain with deep inspiration and a intermittent chest pressure on the right side. She also states pain is worse with certain movements. States it is very mild at baseline. States it is hard to get in a comfortable position. Denies fevers, chills, abdominal pain, syncope, nausea, vomiting. Related Data Home Medications Medication Instructions Recorded Confirmed cetirizine 10 mg capsule (Zyrtec) 10 mg PO HS PRN Allergy Symptoms 07/10/22 04/15/23 losartan 50 mg tablet 50 mg PO QAM 02/04/23 04/15/23 amlodipine 5 mg tablet 5 mg PO HS 04/15/23 04/15/23 lamotrigine 150 mg tablet 150 mg PO HS 04/15/23 04/15/23 multivitamin 1 tablet PO DAILY 04/15/23 04/15/23 Allergies Allergy/AdvReac Type Severity Reaction Status Date / Time wheat Allergy Severe Abdominal Verified 04/21/23 17:05 Pain Penicillins Allergy Rash Verified 04/21/23 17:05 shrimp Allergy Rash Verified 04/21/23 17:05 iodine AdvReac Intermediate sneezing, Verified 04/21/23 17:05 COUGH iohexol AdvReac SNEEZING, Verified 04/21/23 17:05 [From contrast - CT, X-RAY] COUGH irbesartan AdvReac hair loss Verified 04/21/23 17:05 Review of Systems Review of Systems: All systems as dictated in [facility] Past Medical History Medical History (Updated 05/07/23 @ 02:42 by Christiano Jean PA-C) Abnormal endoscopy of upper gastrointestinal tract Anxiety Arthritis Blood transfusion abn reaction or complication, no procedure mishap BMI greater than 30 Chronic back pain Chronic headaches Depression Diverticulitis Diverticulosis Gallbladder disease Hemorrhoids Hyperlipidemia Hypertension Numbness of face Ovarian cyst Seizures Sleep apnea Uterine fibroid Surgical History Surgical History (Updated 04/24/23 @ 01:52 by Sabiha Wright APRN) H/O dilation and curettage H/O endoscopy H/O vein stripping History of appendectomy Hx of cholecystectomy Hx of colectomy AMBER Sigmoid colectomy on 06/05/22 Previous section Family History Family History Father Heart disease Hypertension Diabetes mellitus Mother Diabetes mellitus Heart disease Sibling No problems noted. Grandparent Breast cancer Other Cancer Cerebrovascular accident Social History Social History Smoking packs per day: 1 Smoking cigarettes per day: 20.0 Years smoked: 7 Smoking pack-years: 7.00 Smoking status: Current every day smoker Second hand tobacco smoke exposure: Yes (SPOUSE) Additional smoking assessment comments: QUIT SMOKING CIG 03/2022, SWITCHED TO VAPING-OFF AND ON ALL DAY Alcohol intake: current Drinks per week: 1 Alcohol use details: social Substance use: never Substance use type: does not use Lack of Transportation: No Lack of Food: Never True Current Housing: I Have Housing Concerned About Future Housing: No Difficulty Paying Gas/Electric Bills: No Difficulty Paying for Meds: No Currently Unemployed: No Education: High School Diploma/GED Difficulty w/ Childcare or Family Care: No Living arrangements: with family Additional living arrangements comments: HUSB AND CHILDREN Occupation/Education: occupation 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
[2023-05-07 01:01] VITALS: BP 120/84; PULSE 88; RESP 19; O2SAT 94
[2023-05-07 02:38] LABS: Troponin I < 0.012 ng/mL (0.000-0.034)
[2023-05-07 03:31] VITALS: BP 128/78; PULSE 86; RESP 19; O2SAT 95
== END 2023-05-07 03:33 | disposition home or self-care (01) ==
PROVIDERS: Student in an Organized Health Care Education/Training Program; Emergency Provider Physician Assistant; PCP Family Medicine
DX: R07.89 Other chest pain (principal); E78.5 Hyperlipidemia, unspecified; I10 Essential (primary) hypertension; G47.30 Sleep apnea, unspecified; M19.90 Unspecified osteoarthritis, unspecified site; F17.290 Nicotine dependence, other tobacco product, uncomplicated; Z90.49 Acquired absence of other specified parts of digestive tract; Z79.01 Long term (current) use of anticoagulants
CPT/HCPCS: 36415; 71046; 80053; 83690; 84484; 85025; 85610; 85730; 93005; 99284

== ENCOUNTER 2023-05-12 13:05 | Outpatient (CLI) | payer OTHER, MEDICAID, SELFPAY ==
--- NOTE | ~2023-05-12 | MMUS_ITS ---
EXAMINATION: MM diagnostic [place] LT w milo, US breast LT limited HISTORY: . Left mammographic asymmetry reported on 04/29/2023 screening mammogram TECHNIQUE: Additional 3-D tomosynthesis images of the left breast were performed and synthetic 2-D im ages were generated. CAD analysis was submitted and interpreted. High resolution upper outer and lowe r-outer quadrant left breast ultrasound was performed. COMPARISON: 04/29/2023 bilateral screening mammogram FINDINGS: MAMMOGRAPHIC FINDINGS: No suspicious mass, architectural distortion, malignant calcification, skin thickening or retraction is detected. ULTRASOUND: No suspicious mass or shadowing of the left breast is detected. The following simple cyst s were demonstrated: Left breast 2:00 7 cm from nipple: Parallel circumscribed sonolucency measuring 9 x 6.1 x 8.4 mm, wit h through transmission and posterior enhancement, consistent with simple cyst Left breast 3:00 6 cm from nipple: 3 x 4 mm simple cyst Left breast 4:00 8 cm from nipple: 3.7 x 4.3 mm simple cyst IMPRESSION: 1. Benign findings; no mammographic or sonographic evidence of malignancy 2. Routine annual mammographic screening is recommended BI-RADS Category 2: Benign finding(s). Reviewed, dictated and finalized at location A. IMPRESSION: 1. Benign findings; no mammographic or sonographic evidence of malignancy 2. Routine annual mammographic screening is recommended BI-RADS Category 2: Benign finding(s).
== END 2023-05-12 13:06 | disposition home or self-care (01) ==
LOC: ANHIMG 13:07
PROVIDERS: PCP Family Medicine; Visit Provider Nurse Practitioner Obstetrics & Gynecology
DX: R92.8 Other abnormal and inconclusive findings on diagnostic imaging of breast (principal)
CPT/HCPCS: 76642; 77061; 77065; G0279

== ENCOUNTER 2023-06-08 15:19 | Emergency (ER) | payer OTHER, MEDICAID, SELFPAY ==
--- NOTE | ~2023-06-08 | US_ITS ---
EXAMINATION: US venous doppler [facility] DATE: 06/08/2023 17:44 INDICATION: evaluate for DVT . TECHNIQUE: Grayscale images without and with compression and Doppler images of the left lower extremi ty veins were obtained. COMPARISON: None FINDINGS: The left common femoral vein, profunda (deep) femoral vein, femoral vein, popliteal vein, peroneal v ein, posterior tibial veins, gastrocnemius vein, and greater saphenous vein are patent. IMPRESSION: Patent left lower extremity veins. No evidence of deep venous thrombosis. Reviewed, dictated and finalized at location K. S DESIGNER
[2023-06-08 15:19] VITALS: BP 167/90; PULSE 108; RESP 20; TEMP 36.9; O2SAT 100
--- NOTE | 2023-06-08 17:22 | ED.LOWEXIN ---
HPI - Extremity Injury (Lower) General Chief Complaint: Extremity Injury, Lower Stated Complaint: coughing x 4 days Time Seen by Provider: 06/08/23 16:59 Source: patient Limitations: no limitations History of Present Illness HPI Narrative: Patient is a 42 year old female. Triage complaint was listed as coughing x4 days. She has a history of PE diagnosed either 04/23/23 or 04/24/23 after undergoing hernia repair surgery 04/21/23. She has been taking her Elliquis and denies missing any doses (initially 10mg BID x7 days now 5mg BID). No hemoptysis. She states to me her more concerning symptom is left calf pain at this time which has been going on for 4 days. She denies any fevers but has intermittently felt flushed. Related Data Home Medications Medication Instructions Recorded Confirmed cetirizine 10 mg capsule (Zyrtec) 10 mg PO HS PRN Allergy Symptoms 07/10/22 05/13/23 losartan 50 mg tablet 50 mg PO QAM 02/04/23 05/13/23 lamotrigine 150 mg tablet 150 mg PO HS 04/15/23 05/13/23 multivitamin 1 tablet PO DAILY 04/15/23 05/13/23 Allergies Allergy/AdvReac Type Severity Reaction Status Date / Time wheat Allergy Severe Abdominal Verified 06/08/23 16:40 Pain Penicillins Allergy Rash Verified 06/08/23 16:40 shrimp Allergy Rash Verified 06/08/23 16:40 iodine AdvReac Intermediate sneezing, Verified 06/08/23 16:40 COUGH iohexol AdvReac SNEEZING, Verified 06/08/23 16:40 [From contrast - CT, X-RAY] COUGH irbesartan AdvReac hair loss Verified 06/08/23 16:40 PMFSH Past Medical History Medical History (Updated 06/09/23 @ 10:53 by Rebeca Lopez MD) Abnormal endoscopy of upper gastrointestinal tract Anxiety Arthritis Blood transfusion abn reaction or complication, no procedure mishap BMI greater than 30 Chronic back pain Chronic headaches Depression Diverticulitis Diverticulosis Gallbladder disease Hemorrhoids Hyperlipidemia Hypertension Numbness of face Ovarian cyst Pulmonary embolism Seizures Sleep apnea Uterine fibroid Surgical History Surgical History H/O dilation and curettage H/O endoscopy H/O vein stripping History of appendectomy History of hernia repair incisional hernia with defect measuring approximately 9 cm, lateralization of the rectus muscles on 04/21/23 PDC Hx of cholecystectomy Hx of colectomy AMBER Sigmoid colectomy on 06/05/22 Previous section Family History Family History Father Heart disease Hypertension Diabetes mellitus Mother Diabetes mellitus Heart disease Sibling No problems noted. Grandparent Breast cancer Other Cancer Cerebrovascular accident Social History Social History Smoking packs per day: 1 Smoking cigarettes per day: 20.0 Years smoked: 7 Smoking pack-years: 7.00 Smoking status: Former smoker Tobacco type: e-cigarettes/vaping Second hand tobacco smoke exposure: Yes (SPOUSE) Additional smoking assessment comments: QUIT SMOKING CIG 03/2022, SWITCHED TO VAPING-OFF AND ON ALL DAY Alcohol intake: current Drinks per week: 1 Alcohol use details: social Substance use: never Substance use type: does not use Lack of Transportation: No Lack of Food: Never True Current Housing: I Have Housing Concerned About Future Housing: No Difficulty Paying Gas/Electric Bills: No Difficulty Paying for Meds: No Currently Unemployed: No Education: High School Diploma/GED Difficulty w/ Childcare or Family Care: No Living arrangements: with family Additional living arrangements comments: HUSB AND CHILDREN Occupation/Education: occupation 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
[2023-06-08 17:53] LABS: Basophils Absolute Auto 0.1 K/mm3 (0.0-0.1); Basophils Percent Auto 0.8 % (0.2-1.2); Eosinophils Absolute Auto 0.2 K/mm3 (0-0.3); Eosinophils Percent Auto 2.5 % (0-4.4); Hematocrit 37.9 % (37.0-47.0); Hemoglobin 12.5 g/dL (12.0-15.0); Immature Granulocyte Absolute 0.02 K/mm3 (0.00-0.031); Immature Granulocyte Percent A 0.2 % (0-0.5); Lymphocytes Absolute Auto 0.86 K/mm3 (0.9-3.2); Lymphocytes Percent Auto 9.3 % (18.3-44.2); Mean Corpuscular Hemoglobin 30.3 pg (26-34); Mean Corpuscular Volume 91.8 fl (80-100); Mean Platelet Volume 8.9 fl (7.4-10.4); Monocytes Absolute Auto 0.5 K/mm3 (0.1-0.6); Neutrophils Absolute Auto 7.6 K/mm3 (1.3-6.7); Neutrophils Percent Auto 82.2 % (45.5-73.1); Platelet Count Result 346 k/mm3 (150-375); Red Blood Count 4.13 M/mm3 (4.2-5.4); White Blood Count 9.2 K/mm3 (4.5-10.0)
[2023-06-08 17:58] VITALS: BP 142/87; PULSE 91; RESP 18; O2SAT 98
[2023-06-08 18:06] LABS: Anion Gap 11 mmol/L (8-16); Blood Urea Nitrogen 8 mg/dL (7-17); Calcium 9.6 mg/dL (8.4-10.2); Carbon Dioxide 27 mmol/L (22-30); Chloride 101 mmol/L (98-107); Creatine Kinase 74 U/L (30-135); Estimated CRCL calculation 130 ml/min; Estimated Glomerular Filt Rate > 60; Glucose 94 mg/dL (65-110); Potassium 4.1 mmol/L (3.4-5.0); Sodium 139 mmol/L (137-145)
[2023-06-08 18:11] LABS: Prothrombin Time 13.7 Seconds (11.1-14.7)
[2023-06-08 18:13] LABS: Partial Thromboplastin Time 29.8 SECONDS (22.3-36.8)
[2023-06-08] MEDS: ACETAMINOPHEN 500 MG TABLET 1000 MG PO (19:08)
== END 2023-06-08 19:11 | disposition home or self-care (01) ==
PROVIDERS: Emergency Provider Student in an Organized Health Care Education/Training Program; PCP Family Medicine
DX: M79.662 Pain in left lower leg (principal); E78.5 Hyperlipidemia, unspecified; I10 Essential (primary) hypertension; G47.30 Sleep apnea, unspecified; M19.90 Unspecified osteoarthritis, unspecified site; Z86.711 Personal history of pulmonary embolism; Z79.01 Long term (current) use of anticoagulants; Z90.49 Acquired absence of other specified parts of digestive tract; F17.290 Nicotine dependence, other tobacco product, uncomplicated
CPT/HCPCS: 36415; 80048; 82550; 85025; 85610; 85730; 93971; 99284; A9270

== ENCOUNTER 2023-08-04 00:44 | Day surgery (SDC) | payer OTHER, MEDICAID, SELFPAY ==
[2023-07-29 10:52] VITALS: BMI 35.2
--- NOTE | 2023-08-04 06:46 | WPDANESEPPF ---
Anes - Initial Pre Proc Eval Procedure: Operation Date: 08/04/23 09:00 Proposed Procedures p Esophagogastroduodenoscopy - Prince Lock MD Date/Time: 08/04/23 06:46 Surgeon: Prince Lock MD Pre Op Diagnosis: GERD, Abdominal pain Patient Data Age: 42 Gender: F Height: 1.73 m Weight: 105 kg Allergies Allergy/AdvReac Type Severity Reaction Status Date / Time wheat Allergy Severe Abdominal Verified 08/04/23 07:50 Pain iodine Allergy Intermediate sneezing, Verified 08/04/23 07:50 COUGH iohexol Allergy Intermediate SNEEZING, Verified 08/04/23 07:50 [From contrast - CT, X-RAY] COUGH Penicillins Allergy Intermediate Rash Verified 08/04/23 07:50 shrimp Allergy Intermediate Rash Verified 08/04/23 07:50 irbesartan AdvReac Intermediate hair loss Verified 08/04/23 07:50 Home Medications Medication Instructions Recorded Confirmed Type cetirizine 10 mg capsule (Zyrtec) 10 mg PO HS PRN Allergy Symptoms 07/10/22 08/04/23 History losartan 50 mg tablet 50 mg PO QAM 02/04/23 08/04/23 History pantoprazole 40 mg tablet,delayed 40 mg PO BID 1 month #60 tabs 04/01/23 08/04/23 Rx release lamotrigine 150 mg tablet 150 mg PO HS 04/15/23 08/04/23 History multivitamin 1 tablet PO DAILY 04/15/23 08/04/23 History amitriptyline 25 mg tablet 25 mg PO QHS #30 tabs 05/05/23 08/04/23 Rx amlodipine 5 mg tablet 5 mg PO HS #90 tabs 05/26/23 08/04/23 Rx semaglutide (weight loss) 0.25 0.25 mg (0.5 mL) subcut WEEKLY #4 07/29/23 08/04/23 Rx mg/0.5 mL subcutaneous pen syringes injector (Ramakrishna) Patient hx anesthesia problems: none Family hx anesthesia problems: none Results Review: All pre-operative results and documents have been reviewed as part of the pre-operative evaluation. [facility] Past Medical History Medical History (Updated 08/04/23 @ 06:48 by Ortega Felix DO) Abdominal pain Abnormal endoscopy of upper gastrointestinal tract Acute bacterial sinusitis Anxiety Arthritis Blood transfusion abn reaction or complication, no procedure mishap BMI greater than 30 Cerebral atrophy Chronic back pain Chronic headaches D-dimer, elevated Depression Diverticulitis Diverticulosis Gallbladder disease Hemorrhoids Hyperlipidemia Hypertension Hypoxia Incisional hernia Left facial numbness Numbness of face Ovarian cyst Panic attack Pulmonary embolism Rash Seizures absent seizure Sleep apnea Uterine fibroid Surgical History Surgical History (Updated 07/28/23 @ 11:25 by CHASITY Estrada) H/O abdominal surgery H/O dilation and curettage H/O endoscopy H/O vein stripping History of appendectomy History of hernia repair incisional hernia with defect measuring approximately 9 cm, lateralization of the rectus muscles on 04/21/23 PDC Hx of cholecystectomy Hx of colectomy AMBER Sigmoid colectomy on 06/05/22 Previous section Family History Family History Father Heart disease Hypertension Diabetes mellitus Mother Diabetes mellitus Heart disease Sibling No problems noted. Grandparent Breast cancer Other Cancer Cerebrovascular accident Social History Social History Smoking packs per day: 1 Smoking cigarettes per day: 20.0 Years smoked: 8 Smoking pack-years: 8.00 Smoking status: Former smoker Tobacco type: cigarettes and e-cigarettes/vaping Second hand tobacco smoke exposure: Yes (SPOUSE) Additional smoking assessment comments: started vaping 2020 Alcohol intake: current Drinks per week: 1 Alcohol use details: social Substance use: never Substance use type: does not use Lack of Transportation: No Lack of Food: Never True Current Housing: I Have Housing Concerned About Future Housing: No Difficulty Paying Gas/Electric Bills: No Difficulty Paying for Meds: No Currently Unemployed: No
[2023-08-04 07:54] VITALS: BP 143/85; PULSE 97; RESP 16; TEMP 36.8; O2SAT 97; BMI 35.6
[2023-08-04] MEDS: LACTATED RINGERS 1,000 ML 150 ML IV CONT (08:04)
--- NOTE | 2023-08-04 08:45 | PM.HPGS ---
History of Present Illness History of Present Illness Consent: Risks, benefits, and alternatives have been discussed and questions answered. Patient agrees to proceed with procedure. Chief complaint: GERD, Abdominal pain Narrative: Devi Chow is a 42 year old female with gerd on ppi, few days ago had more discomfort than usual, also history of gluten sensitivity but serology for celiac normal. Review of Systems Constitutional: Constitutional: Denies headache(s) and Denies weakness Eyes: Eyes: Denies blurry vision ENT: Reports Normal hearing present, Denies headache(s) and Denies neck pain Cardiovascular: Cardiovascular: Denies chest pain and Denies dyspnea Respiratory: Respiratory: Denies dyspnea Gastrointestinal: Gastrointestinal: Reports no additional gastrointestinal complaints Genitourinary: Genitourinary: Denies dysuria Musculoskeletal: Musculoskeletal: Denies neck pain Integumentary/Breasts: Skin/Breast: Denies dry skin Neurologic: Reports Normal hearing present, Denies headache(s) and Denies weakness Psychiatric: Psychiatric: Denies anxiety Endocrine: Endocrine: Denies change in body appearance Hematologic/Lymphatic: Hematologic/Lymphatic: Denies easy bleeding Allergic/Immunologic: Allergic/Immunologic: Denies urticaria [facility] Past Medical History Medical History (Updated 08/04/23 @ 06:48 by Ortega Felix, ) Abdominal pain Abnormal endoscopy of upper gastrointestinal tract Acute bacterial sinusitis Anxiety Arthritis Blood transfusion abn reaction or complication, no procedure mishap BMI greater than 30 Cerebral atrophy Chronic back pain Chronic headaches D-dimer, elevated Depression Diverticulitis Diverticulosis Gallbladder disease Hemorrhoids Hyperlipidemia Hypertension Hypoxia Incisional hernia Left facial numbness Numbness of face Ovarian cyst Panic attack Pulmonary embolism Rash Seizures absent seizure Sleep apnea Uterine fibroid Surgical History Surgical History (Updated 07/28/23 @ 11:25 by CHASITY Estrada) H/O abdominal surgery H/O dilation and curettage H/O endoscopy H/O vein stripping History of appendectomy History of hernia repair incisional hernia with defect measuring approximately 9 cm, lateralization of the rectus muscles on 04/21/23 PDC Hx of cholecystectomy Hx of colectomy AMBER Sigmoid colectomy on 06/05/22 Previous section Family History Family History Father Heart disease Hypertension Diabetes mellitus Mother Diabetes mellitus Heart disease Sibling No problems noted. Grandparent Breast cancer Other Cancer Cerebrovascular accident Social History Social History Smoking packs per day: 1 Smoking cigarettes per day: 20.0 Years smoked: 8 Smoking pack-years: 8.00 Smoking status: Former smoker Tobacco type: cigarettes and e-cigarettes/vaping Second hand tobacco smoke exposure: Yes (SPOUSE) Additional smoking assessment comments: started vaping 2020 Alcohol intake: current Drinks per week: 1 Alcohol use details: social Substance use: never Substance use type: does not use Lack of Transportation: No Lack of Food: Never True Current Housing: I Have Housing Concerned About Future Housing: No Difficulty Paying Gas/Electric Bills: No Difficulty Paying for Meds: No Currently Unemployed: No Education: High School Diploma/GED Difficulty w/ Childcare or Family Care: No Living arrangements: with family Additional living arrangements comments: HUSB AND CHILDREN Occupation/Education: occupation 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
[2023-08-04 08:59] VITALS: BP 100/73; PULSE 96; RESP 15; O2SAT 95
[2023-08-04 09:09] VITALS: BP 128/87; PULSE 92; RESP 22; O2SAT 100
[2023-08-04 09:19] VITALS: BP 126/87; PULSE 84; RESP 15; O2SAT 100
== END 2023-08-04 09:24 | disposition home or self-care (01) ==
PROVIDERS: PCP Family Medicine; Visit Provider Internal Medicine Gastroenterology
PROC: 0DJ08ZZ Inspection of Upper Intestinal Tract, Via Natural or Artificial Opening Endoscopic (ICD-10-PCS; CPT 43235; principal; 2023-08-04 09:00)
DX: K29.50 Unspecified chronic gastritis without bleeding (principal); K21.9 Gastro-esophageal reflux disease without esophagitis; F41.9 Anxiety disorder, unspecified; E78.5 Hyperlipidemia, unspecified; I10 Essential (primary) hypertension; G47.30 Sleep apnea, unspecified; G31.9 Degenerative disease of nervous system, unspecified; G89.29 Other chronic pain; M54.9 Dorsalgia, unspecified; R51.9 Headache, unspecified; F32.A Depression, unspecified; Z79.85 Long-term (current) use of injectable non-insulin antidiabetic drugs; Z90.49 Acquired absence of other specified parts of digestive tract; Z98.890 Other specified postprocedural states; Z87.891 Personal history of nicotine dependence; Z86.711 Personal history of pulmonary embolism; Z82.49 Family history of ischemic heart disease and other diseases of the circulatory system; Z80.3 Family history of malignant neoplasm of breast
CPT/HCPCS: 43239; 88305; 88342; J2001; J2704; J7120

== ENCOUNTER 2023-10-01 14:44 | Outpatient (CLI) | payer OTHER, MEDICAID, SELFPAY ==
--- NOTE | ~2023-10-01 | XR_ITS ---
XR lumbar spine min 4V 10/01/2023 15:12 Indication: Low back pain. Spondylosis. Procedure: 5 views lumbar spine Comparison: 11/19/2011 Findings: There is mild dextroscoliosis. There are cholecystectomy clips. There is disc narrowing at L4-5 and L5-S1. There is facet hypertrophy at L4-5 and L5-S1. No evidence for spondylolisthesis. Ther e is an IUD in the pelvis. No acute fracture or traumatic malalignment. Impression: 1: Progression of mild-moderate lower lumbar spondylosis. Reviewed, dictated and finalized at location A. Impression: 1: Progression of mild-moderate lower lumbar spondylosis.
--- NOTE | ~2023-10-01 | XR_ITS ---
XR cervical spine 4-5V 10/01/2023 15:12 Indication: Neck pain Procedure: 4 view cervical spine Comparison: 11/19/2011 Findings: Normal cervical alignment. Vertebral body heights are maintained. No fracture or traumatic malalignment. No significant prevertebral soft tissue abnormality. Odontoid process is normal. Lung a pices are normal. Impression: 1: No significant abnormality of the cervical spine. Reviewed, dictated and finalized at location A. Impression: 1: No significant abnormality of the cervical spine.
[2023-10-01 15:56] LABS: Basophils Absolute Auto 0.1 K/mm3 (0.0-0.1); Basophils Percent Auto 0.7 % (0.2-1.2); Eosinophils Absolute Auto 0.2 K/mm3 (0-0.3); Eosinophils Percent Auto 3.1 % (0-4.4); Hematocrit 37.9 % (37.0-47.0); Hemoglobin 12.8 g/dL (12.0-15.0); Immature Granulocyte Absolute 0.01 K/mm3 (0.00-0.031); Immature Granulocyte Percent A 0.1 % (0-0.5); Lymphocytes Absolute Auto 1.55 K/mm3 (0.9-3.2); Mean Corpuscular HGB Conc 33.8 g/dl (32-36); Mean Corpuscular Hemoglobin 30.3 pg (26-34); Mean Corpuscular Volume 89.6 fl (80-100); Monocytes Absolute Auto 0.4 K/mm3 (0.1-0.6); Monocytes Percent Auto 5.9 % (2.6-8.5); Neutrophils Absolute Auto 4.5 K/mm3 (1.3-6.7); Neutrophils Percent Auto 67.2 % (45.5-73.1); Platelet Count Result 375 k/mm3 (150-375); Red Blood Count 4.23 M/mm3 (4.2-5.4); Red Cell Distribution Width 12.9 % (11.5-14.5); White Blood Count 6.8 K/mm3 (4.5-10.0)
[2023-10-01 16:19] LABS: Complement C3 163 mg/dL (88-165)
[2023-10-01 16:26] LABS: Alanine Aminotransferase 35 U/L (6-35); Albumin Level 4.7 g/dL (3.5-5.1); Alkaline Phosphatase 131 U/L (38-126); Anion Gap 8 mmol/L (8-16); Aspartate Amino Transferase 35 U/L (14-36); Bilirubin,Total 0.6 mg/dL (0.2-1.3); Blood Urea Nitrogen 11 mg/dL (7-17); CRP 0.6 mg/dL (<1.0); Calcium 9.8 mg/dL (8.4-10.2); Carbon Dioxide 28 mmol/L (22-30); Chloride 102 mmol/L (98-107); Creatine Kinase 119 U/L (30-135); Estimated Glomerular Filt Rate > 60; Glucose 104 mg/dL (65-110); Potassium 4.1 mmol/L (3.4-5.0); Sodium 138 mmol/L (137-145); Uric Acid 4.7 mg/dL (2.5-7.5)
[2023-10-01 16:33] LABS: Appearance Urine Clear (Clear); Bilirubin Urine Negative (Negative); Blood Urine Negative (Negative); Color Urine Yellow (Yellow); Glucose Urine UA Negative (Negative); Ketones Urine Negative (Negative); Leukocyte Esterase Ur Negative LEU/UL (Negative); Nitrate Urine Negative (Negative); Protein Urine Negative (Negative); Specific Grav Ur 1.014 (1.001-1.035); Urobilinogen Urine 0.2 mg/dL (<2.0)
[2023-10-01 16:45] LABS: Add Urine Microscopic? NO
[2023-10-01 18:07] LABS: Vitamin D 25 Hydroxy 41.2 ng/mL
[2023-10-05 02:23] LABS: Angiotensin Converting Enzyme 43.9 U/L (9-67)
== END 2023-10-01 14:45 | disposition home or self-care (01) ==
PROVIDERS: PCP Family Medicine; Visit Provider Internal Medicine
DX: M47.812 Spondylosis without myelopathy or radiculopathy, cervical region (principal); M47.816 Spondylosis without myelopathy or radiculopathy, lumbar region; M43.06 Spondylolysis, lumbar region
CPT/HCPCS: 36415; 72050; 72110; 80053; 82164; 82306; 82550; 84550; 85025; 86140; 86160

== ENCOUNTER 2023-10-16 12:17 | Outpatient (CLI) | payer OTHER, MEDICAID, SELFPAY ==
--- NOTE | ~2023-10-16 | CT_ITS ---
EXAMINATION: CT abdomen pelvis wo con DATE: 10/16/2023 12:42 INDICATION: Left upper abdominal pain TECHNIQUE: Computed tomography (CT) of the abdomen and pelvis was performed without intravenous contr ast. The dose-length product was 951.42 mGy-cm. Automated exposure control and iterative reconstructi on technique were employed. COMPARISON: CT dated 03/11/2023 FINDINGS: Lung bases are unremarkable. Heart size normal. No significant pleural or pericardial effus ion. No thoracic lymphadenopathy. There has been interval ventral hernia repair. There are cholecyste ctomy clips. The liver, spleen, pancreas, adrenal glands and kidneys are unremarkable. No renal stone s or hydronephrosis. Gallbladder is absent. No lymphadenopathy. There is an IUD in the uterus. Nonobs tructive bowel pattern. Moderate colonic fecal loading. No acute osseous abnormality. There is a scle rotic lesion of the right ilium, likely benign bone island. IMPRESSION: 1. No acute abdominal abnormality. Reviewed, dictated and finalized at location L.
--- NOTE | ~2023-10-16 | XR_ITS ---
XR abdomen/kub 1V 10/16/2023 12:37 INDICATION: Left upper quadrant pain TECHNIQUE: KUB COMPARISON: 06/08/2022 FINDINGS: Bowel gas pattern is normal. Moderate colonic fecal loading. There are cholecystectomy clip s. There is no evidence of free air, mass, organomegaly, ascites or obstruction. No abnormal calculi are seen. The bones appear intact. IMPRESSION: 1: No acute abdominal abnormality identified. Reviewed, dictated and finalized at location L.
== END 2023-10-16 12:18 | disposition home or self-care (01) ==
LOC: ANHIMG 12:20
PROVIDERS: PCP Family Medicine; Visit Provider Nurse Practitioner Adult Health
DX: R10.12 Left upper quadrant pain (principal)
CPT/HCPCS: 74018; 74176

== ENCOUNTER 2023-11-26 20:00 | Inpatient (IN) | payer OTHER, SELFPAY ==
[2023-11-19 10:44] VITALS: BMI 36.0
--- NOTE | 2023-11-19 10:49 | SUR.PREOP ---
Addendum entered by Kami Saez RN 11/19/23 10:54: HOLD PANTOPRAZOLE MORNING OF SURGERY Original Note: Report to the Outpatient Waiting Room, entrance under the green pavilion located off [facility], at time 1030 on date _11/26/23_. Planned Procedure Time: __1230__. Time changes happen often and if your time is changed the preop area will call you the afternoon before. - You and your visitor will be asked to self-screen and do not enter if you have any COVID symptoms. - A mask is optional within the hospital at this time. Patients may have clear liquids (water, carbonated beverages, clear teas, apple juice) until 3 hours prior to surgery with a maximum of 20 ounces. - No food from midnight until time of surgery 20 OUNCES BEFORE 0930 IN AM - Infants may have breast milk until 4 hours before surgery, formula 6 hours prior to surgery. - Children will be allowed to drink immediately following surgery. If applicable, please bring a bottle or sippy cup to assist with drinking. Juice, water, soda, and popsicles are readily available. For infants on formula, please bring formula the day of surgery. Pacifiers are allowed. Take the following medications with a SIP of water the morning of surgery: NO MORNING MEDS DO NOT STOP ANY OF YOUR OTHER PRESCRIPTION MEDICATIONS PRIOR TO SURGERY ?EXCEPT THE FOLLOWING Medications to discontinue per physician __HOLD LOSARTAN MORNING ON SURGERY. HOLD VITAMINS AND SUPPLEMENTS 3 DAYS PRIOR___ Date to take last dose Please no make-up, nail belarusian, hairspray, perfume, deodorant, or body powder the day of surgery. No jewelry (including any body piercings) or valuables the day of surgery, leave them at home. Please take a shower or bath the night before, or the morning of, surgery with an antibacterial soap. Wear comfortable, loose fitting clothing. Children are encouraged to wear pajamas. - Jewelry must be removed prior to entering the operating room. Rings and piercings that are not removed may be cut off. - The hospital will not accept responsibility for valuables. - Please leave all valuables, including medications, at home the day of surgery. If you are going home after surgery, a licensed truck driver teamster must drive you home. - NO public transportation without another adult if you receive anesthesia. - We recommend that an adult stay with you for 24 hours following discharge. - We also recommend that you do not drive, make important decision, drink alcoholic beverages, or take any drugs that were not prescribed by your health care provider for at least 24 hours after your discharge time. For Pediatric surgeries, we recommend two adults accompany the child home. Follow any additional instructions given to you from your surgeon. If you or anyone in your household have experienced Covid symptoms in the past week, please notify your surgeon or the nurse liaison at the phone number below for possible testing. Telephone instructions given to _PATIENT__and asked if any additional questions and then verbalized understanding. Patient advised to call surgeon office or pre surgery nurse liaison [phone] if any additional questions.
[2023-11-26] VITALS (20 sets, daily range): BP systolic 106–158; BP diastolic 51–90; PULSE 85–128; RESP 16–19; TEMP 36.1–36.6; O2SAT 96–100
--- NOTE | 2023-11-26 | OP_ITS ---
DOCUMENT WAS ORIGINALLY SIGNED ON 11/26/23 AT 1641 Procedure Note - Detailed Date of Procedure 11/26/23 Pre-op Diagnosis Hemorrhage of anus and rectum Need for ureteral identification Post-op Diagnosis Same Procedure Performed Cystoscopy, left internal/external ureteral stent insertion, abdominal exploration Surgeon Greta Ahuja MD Anesthesia General Indications Urology was consulted emergently to the operating room during gynecologic procedure due to inability to identify the ureter in the setting of hemorrhage. Findings Left ureter was identified without injury noted. An internal external stent was placed for further identification throughout the procedure. Description of Procedure The patient was encountered in the operating room with an open abdomen. I inspected the abdomen together with general surgery and we noted a structure that was consistent with the ureter crossing the iliac vessels. At this point we then removed the pre-existing Lr catheter. A 22 F rigid cystoscope was inserted through the urethra into the bladder. There was no bladder injury noted. The patient had bilateral orthotopic ureteral orifices. We then cannulated the left ureteral orifice with the wire. Intra-abdominal palpation revealed that there was no injury to the ureter. Over the wire a 5 F open- ended catheter was left as an internal/external stent. Lr catheter was reinserted and stent was secured to the catheter debris removed at the conclusion of operation. Complications No immediate complications This report may have been done utilizing a voice recognition system. Attempts have been made to correct errors. However, there may be uncorrected grammatical, spelling, and recognition errors present. Report Initialized date/time: Greta Ahuja MD 11/26/23 / 1641 Electronically signed by: Greta Ahuja MD 11/26/23 1641 [facility]
--- NOTE | ~2023-11-26 | XR_ITS ---
EXAMINATION: XR chest 1V portable DATE: 11/28/2023 09:35 INDICATION: Tachycardia. TECHNIQUE: A single frontal view of the chest was obtained. COMPARISON: Chest 2 views 05/06/2023 FINDINGS: There is mild atelectasis at the lung bases. No pleural effusion or pneumothorax. The heart size is normal. IMPRESSION: 1. Mild atelectasis at the lung bases. Reviewed, dictated and finalized at location A.
--- NOTE | ~2023-11-26 | CT_ITS ---
EXAMINATION: CT abdomen pelvis wo con DATE: 12/08/2023 14:29 INDICATION: Abdominal and pelvic abscess. TECHNIQUE: Computed tomography (CT) of the abdomen and pelvis was performed without intravenous contr ast. Automated exposure control and iterative reconstruction technique were employed. The dose-length product was 1291.46 mGy-cm. COMPARISON: CT abdomen and pelvis 12/05/2023, 11/28/23, 10/16/23 FINDINGS: The visualized portions of the lung bases demonstrate mild atelectasis. No pleural effusion . The heart size is normal. No pericardial effusion. There is diffuse hepatic steatosis. There are ch anges of cholecystectomy. The spleen, pancreas, adrenal glands, and kidneys are normal. There is an i ntrauterine device in expected position. There are no dilated loops of bowel. There are changes of re cent midline incision with skin henri. Body wall edema is noted. There are no pathologically enlarg ed lymph nodes. There is a collection of fluid and gas in the inferior peritoneum measuring 9.9 x 4.3 x 9.7 cm with pigtail drain in expected position. There is mild thoracic and lumbar spondylosis. IMPRESSION: 1. Large collection of fluid and gas in the inferior peritoneum with percutaneous drain in expected p osition. The large gas volume suggests bowel perforation. Reviewed, dictated and finalized at location A. IMPRESSION: 1. Large collection of fluid and gas in the inferior peritoneum with percutaneo us drain in expected position. The large gas volume suggests bowel perforation.
--- NOTE | ~2023-11-26 | CT_ITS ---
EXAMINATION: CTA chest PE abdomen pel DATE: 11/29/2023 09:31 INDICATION: Postoperative infection. Tachycardia, tachypnea, hypoxia TECHNIQUE: Computed tomography (CT) of the chest, abdomen, and pelvis was performed without intraveno us contrast. Automated exposure control and iterative reconstruction technique were employed. Exam do se: 3220.65 mGy-cm total exam DLP. COMPARISON: 11/28/2023 portable AP chest 10/16/2023 CT abdomen pelvis FINDINGS: CHEST CT: There is no evidence of pulmonary emboli. No thoracic aortic aneurysm or dissection. Normal heart size. No pericardial or pleural effusion. No hilar or mediastinal mass lesion or lymphadenopathy. There is mild discoid atelectasis or scarring in the right upper lobe and bibasilar atelectasis invol ving the lingula, middle lobe and to a greater extent lower lobes. ABDOMEN/PELVIS CT: There is diffuse hepatic steatosis. No hepatic, splenic, pancreatic, adrenal or suspicious renal spac e occupying mass lesion. Small right renal cyst. No urinary tract calculus or hydroureteronephrosis. There is an IUD within the uterus. There is a Lr catheter within the urinary bladder. There is free fluid and gas in the lower pelvis bilaterally, situated along the anterior superior asp ect of the urinary bladder, in the adnexal areas, especially on the left, tracking along the anterior aspect of the left psoas muscle. Small fluid collections in the paracolic gutters. Small collections of free intraperitoneal air are noted along the nondependent anterior abdominal cav ity. Prominent fluid level within the stomach. Small bowel is dilated up to 4.3 cm diameter with numerous small bowel air-fluid levels. Diverticulosis of the colon. Surgical henri of the anterior abdominal and pelvic mesa. There is subcutaneous fat stranding of t he anterior abdominal and pelvic mesa as well as some subcutaneous emphysema along the incision line . No suspicious osteolytic or osteoblastic lesions. IMPRESSION: Pelvic free fluid and air collections, particularly along the left adnexal area and ante rior aspect of the left psoas muscle Small fluid collections in the paracolic gutters. IUD within uterus Reviewed, dictated and finalized at [facility]. Reviewed, dictated and finalized at location A. IMPRESSION: Pelvic free fluid and air collections, particularly along the left adnexal area and anterior aspect of the left psoas muscle Small fluid collections in the paracolic gutters. IUD within uterus
--- NOTE | ~2023-11-26 | XR_ITS ---
EXAMINATION: XR abdomen/kub 1V DATE: 11/26/2023 17:57 INDICATION: Lost needle TECHNIQUE: A supine view of the abdomen and pelvis on 4 radiographs was obtained. COMPARISON: CT dated 10/16/2023 FINDINGS: T-shaped IUD in expected position within the central pelvis. Cholecystectomy clips in right upper chelle drant. Multiple skin henri extend craniocaudally over the midline of the lower abdomen and pelvis w ith additional sagittal sinus skin henri at the lower pelvis. No needles or other radiopaque foreig n bodies identified. No dilated gas-filled bowel to suggest obstruction. IMPRESSION: 1. Skin henri along the abdominal and pelvic wall. No evident retained needle or other abnormal rad iopaque foreign bodies. 2. Cholecystectomy clips in the right upper quadrant and IUD in expected position at the central pelv is. Reviewed, dictated and finalized at location A. IMPRESSION: 1. Skin henri along the abdominal and pelvic wall. No evident retained needle or other abnormal radiopaque foreign bodies. 2. Cholecystectomy clips in the right upper quadrant and IUD in expected positi on at the central pelvis.
--- NOTE | ~2023-11-26 | CT_ITS ---
EXAMINATION: CT guide absc cath placement DATE: 12/05/2023 16:25 INDICATION: Pelvic abscess for drainage catheter placement TECHNIQUE: The procedure including the risks and benefits was discussed with the patient. Risks discu ssed included bleeding and infection. The patient understood the risks and benefits and agreed to pro ceed. The patient was confirmed to be receiving appropriate antibiotic coverage. The skin overlying the left lower quadrant was prepped and draped in usual sterile fashion. Anesthetic was administered with 1% lidocaine subcutaneously. An 18-gauge trochar needle was advanced into the abscess cavity ut ilizing CT guidance. The trocar was removed and a J-wire advanced into the abscess cavity with positi on confirmed by CT . Utilizing Seldinger technique the needle was removed over the wire and the tract serially dilated to 12 [place]. A 12 Fr catheter was inserted over the wire into the deepest portion of the abscess cavity at the left side of the cul-de-sac. The loop was formed and locked. After posit ion was confirmed by CT the wire was removed and the catheter stitched to the skin. Antibiotic ointme nt and a sterile dressing were applied. An additional adhesive fixation device was applied. 60 mm of foul-smelling opaque flores-colored purulent appearing fluid was aspirated and sent to the lab for Gram stain and cultures. The catheter was attached to suction drainage and a drained an additional 270 mL of fluid by the conclusion of the procedure. There were no immediate complications. The dose-length p roduct was 270.86 mGy-cm. FINDINGS: CT images demonstrate the catheter within the pelvic abscess cavity. 60 mL fluid was aspira jovan for testing with an additional 270 mm fluid having been drained by the conclusion of the procedur e. IMPRESSION: 1. Successful CT-guided pelvic abscess drainage catheter placement. 2. 60 mL fluid was sent for aerobic and anaerobic cultures. 3. The catheter will be managed by Dr. Wen. Reviewed, dictated and finalized at location [facility].
--- NOTE | ~2023-11-26 | CT_ITS ---
Non-contrast CT scan of the Abdomen and Pelvis Clinical indication: Abdominal pain Technique: 2.5 mm axial scans were obtained through the abdomen and pelvis without intravenous or or al contrast. Dose reduction technique was used on this scan by utilizing automated exposure control a nd iterative reconstruction technique. The dose-length product (DLP) was 1292.39 mGy-cm. COMPARISON: 11/29/2023 Findings: Images through the lung bases reveal mild right basilar atelectatic change. There is no evidence of renal or ureteral calculi. The kidneys and the ureters are nondilated. The liver, spleen, pancreas, and adrenals appear normal. Cholecystectomy clips are present. There is no aortic aneurysm. There is now probably much larger abdominopelvic intraperitoneal abscess with air-fluid level, with a somewhat horseshoe-shaped on sagittal images (sagittal image 103 for example, measuring approximatel y 13.4 x 12.6 x 14.6 cm in extent (axial images 141-180 for example). Questionable area of communicat ion from the large bowel to the collection near the rectosigmoid anastomosis (axial images 153-158 fo r example, and this could reflect sequela of bowel perforation. There are innumerable small bubbles o f scattered free air in the abdomen/pelvis present as well. No opal bowel obstruction. Possible ak chin ent of reactive ileus, with some distended loops of bowel present. Images through the pelvis were performed. Urinary bladder is grossly unremarkable. No adnexal mass cl early evident. IUD in place. Impression: 13.4 x 12.6 x 14.6 cm abscess/collection in the abdomen/pelvis, markedly increased from prior exam, w ith large air-fluid level, as detailed above. Suspected area of communication with the distal large b owel near a rectosigmoid anastomosis. Bowel perforation and communication with the collection is a po ssibility. Consider contrast enema to further assess for bowel perforation, as indicated. Innumerable additional scattered small foci of free air, which also raises suspicion for bowel perfor ation. Case discussed with the covering hospitalist at the time of this reading. Reviewed, dictated and finalized at location [facility]. Impression: 13.4 x 12.6 x 14.6 cm abscess/collection in the abdomen/pelvis, markedly increa sed from prior exam, with large air-fluid level, as detailed above. Suspected a sepideh of communication with the distal large bowel near a rectosigmoid anastomosi s. Bowel perforation and communication with the collection is a possibility. Co nsider contrast enema to further assess for bowel perforation, as indicated. Innumerable additional scattered small foci of free air, which also raises susp icion for bowel perforation. Case discussed with the covering hospitalist at the time of this reading.
--- NOTE | ~2023-11-26 | XR_ITS ---
EXAM: XR abdomen gastric tube insert DATE: 11/29/2023 14:46 HISTORY: ng placement . COMPARISON: None available. FINDINGS: NG tube terminates in the gastric antrum. Minimal subsegmental left basilar opacities. Nor mal bowel gas pattern in the upper abdomen. IMPRESSION: Left basilar atelectasis/consolidation. Deeply positioned NG tube, terminating in the ant rum, consider 12 cm retraction. Reviewed, dictated and finalized at location K. IMPRESSION: Left basilar atelectasis/consolidation. Deeply positioned NG tube, terminating in the antrum, consider 12 cm retraction.
--- NOTE | ~2023-11-26 | XR_ITS ---
XR chest PICC line DATE: 11/30/2023 12:38 INDICATION: PICC line placement TECHNIQUE: Portable upright AP chest on 11/30/2023 1225 hours COMPARISON: 11/29/2023 CTA chest abdomen pelvis FINDINGS: Nasogastric tube in stomach. Right upper extremity PIC catheter tip overlies the lower aspect of the superior vena cava. Bibasilar atelectasis. Normal heart size. No pleural effusion or pulmonary congestion or pneumothorax is evident. IMPRESSION: Right upper extremity PIC catheter tip overlies lower superior vena cava Probable bibasilar atelectasis NG tube in stomach Reviewed, dictated and finalized at [facility]. Reviewed, dictated and finalized at location A.
--- NOTE | ~2023-11-26 | CT_ITS ---
EXAMINATION: CT guide absc cath placement DATE: 12/09/2023 11:54 INDICATION: Intraperitoneal abscess. TECHNIQUE: The procedure including the risks, benefits, and alternatives was discussed with the patie nt. Risks discussed included bleeding and infection. The patient understood the risks and benefits an d agreed to proceed. The site of a percutaneous abdominal drain was prepped and draped in usual steri le fashion. The drain was cut and exchanged over a wire for 10, 12, and 14 [place]ian dilators and a new 14 [place]ian pigtail catheter using CT guidance. The catheter was stitched to the skin, and a sterile dr essing was applied. The mA was adjusted according to patient size. Iterative reconstruction technique was employed. The dose-length product was 171.01 mGy-cm. There were no immediate complications. FINDINGS: CT images demonstrate the new catheter within the intraperitoneal abscess. Foul-smelling ta n fluid accumulated in the drainage bag. IMPRESSION: 1. Successful CT-guided peritoneal abscess drain exchange. Reviewed, dictated and finalized at location A.
--- NOTE | ~2023-11-26 | CT_ITS ---
EXAMINATION: CT chest abdomen pelvis wo con DATE: 11/28/2023 17:30 INDICATION: Tachycardia. Epigastric pain. Postoperative complication. TECHNIQUE: Computed tomography (CT) of the chest, abdomen, and pelvis was performed without intraveno us contrast. Automated exposure control and iterative reconstruction technique were employed. The dos e-length product was 1803.57 mGy-cm. COMPARISON: None FINDINGS: CHEST CT: Lung volumes are decreased with discoid, dependent and basilar atelectasis in the bilateral lower lob es. No pulmonary edema, pleural effusion or suspected pneumonia. Heart size is normal. No pericardial effusion. Thoracic aorta is normal in caliber. No pathologically enlarged thoracic lymphadenopathy. Mild thoracic spondylosis. ABDOMEN/PELVIS CT: Cholecystectomy clips in the gallbladder fossa. Liver, spleen, pancreas, bilateral adrenal glands and kidneys are normal. Multiple fluid-filled loops of small bowel and additional fluid in the proximal colon without evident intervening discrete transition point to suggest obstruction and this is most c onsistent with postoperative ileus. Again seen is an anastomotic suture line at the distal sigmoid co viridiana. There are few scattered colonic diverticula without adjacent from trace stranding to suggest div erticulitis. Lr catheter within the partially decompressed bladder. IUD in expected position withi n the anteverted uterus. There is small amount of fluid with scattered mottled gas in the perineum be tween the bladder and the uterine fundus and in retroperitoneal posterior left hemipelvis in the toby on of distal left ureter and resected left ovary. There is an additional small amount of free intrape ritoneal gas in the nondependent anterior lower abdomen. Skin henri along the anterior pelvic surgi lexi wound is an additional likely postoperative gas in the anterior abdominal wall. Mild lumbar spond ylosis. IMPRESSION: 1. Postoperative changes of recent left oophorectomy with small amount of gas and fluid in the left p elvic retroperitoneum and in the intraperitoneal deep pelvis most likely postoperative in etiology. N o evident organized abscess. 2. Fluid-filled but not likely dilated loops of small bowel without discrete transition point to sugg est obstruction is most likely represents a postoperative ileus. 3. Atelectasis and volume loss in the bilateral lower lobes. 4. IUD in expected position within the anteverted uterus. Reviewed, dictated and finalized at location A. IMPRESSION: 1. Postoperative changes of recent left oophorectomy with small amount of gas a nd fluid in the left pelvic retroperitoneum and in the intraperitoneal deep pel vis most likely postoperative in etiology. No evident organized abscess. 2. Fluid-filled but not likely dilated loops of small bowel without discrete tr ansition point to suggest obstruction is most likely represents a postoperative ileus. 3. Atelectasis and volume loss in the bilateral lower lobes. 4. IUD in expected position within the anteverted uterus.
[2023-11-26] MEDS: ACETAMINOPHEN 500 MG TABLET 1000 MG PO (10:48)
[2023-11-26] MEDS: LACTATED RINGERS 1,000 ML 30 ML IV CONT ×2 (10:50→18:03)
[2023-11-26] MEDS: KETOROLAC 15 MG/ML VIAL (*BKC) IV PUSH (10:55)
--- NOTE | 2023-11-26 11:19 | WPDHPUPDATE1 ---
History and Physical Update Update Date/Time: 11/26/23 11:19 History and Physical has been reviewed, including an updated exam of the patient. There are NO changes in the patient's condition. Risks, benefits, and alternatives have been discussed and questions answered. Patient agrees to proceed with procedure.
--- NOTE | 2023-11-26 11:39 | WPDANESEPPF ---
Anes - Initial Pre Proc Eval Procedure: Operation Date: 11/26/23 12:30 Proposed Procedures p Laparoscopic Left Ovarian Cystectomy - Jair Lopez MD Date/Time: 11/26/23 11:39 Surgeon: Jair Lopez MD Pre Op Diagnosis: Cyst of Left Ovary Patient Data Age: 43 Gender: F Height: 1.73 m Weight: 105.8 kg Last Vital Signs Temp 97.6 F 11/26/23 10:24 Pulse 85 11/26/23 10:24 Resp 18 11/26/23 10:24 BP 134/86 11/26/23 10:24 Pulse Ox 100 11/26/23 10:24 O2 Del Method Room Air 11/26/23 10:24 Allergies Allergy/AdvReac Type Severity Reaction Status Date / Time wheat Allergy Severe Abdominal Verified 11/12/23 11:03 Pain iodine Allergy Intermediate sneezing, Verified 11/12/23 11:03 COUGH iohexol Allergy Intermediate SNEEZING, Verified 11/12/23 11:03 [From contrast - CT, X-RAY] COUGH Penicillins Allergy Intermediate Rash Verified 11/12/23 11:03 shrimp Allergy Intermediate Rash Verified 11/12/23 11:03 irbesartan AdvReac Intermediate hair loss Verified 11/12/23 11:03 Home Medications Medication Instructions Recorded Confirmed Type cetirizine 10 mg capsule (Zyrtec) 10 mg PO HS PRN Allergy Symptoms 07/10/22 11/26/23 History losartan 50 mg tablet 50 mg PO QAM 02/04/23 11/26/23 History pantoprazole 40 mg tablet,delayed 40 mg PO BID 1 month #60 tabs 04/01/23 11/26/23 Rx release lamotrigine 150 mg tablet 150 mg PO HS 04/15/23 11/26/23 History multivitamin 1 tablet PO DAILY 04/15/23 11/26/23 History amlodipine 5 mg tablet 5 mg PO HS #90 tabs 05/26/23 11/26/23 Rx amitriptyline 25 mg tablet 25 mg PO QHS #30 tabs 10/02/23 11/26/23 Rx Patient hx anesthesia problems: none Family hx anesthesia problems: none Results Review: All pre-operative results and documents have been reviewed as part of the pre-operative evaluation. [facility] Past Medical History Medical History Abdominal pain Abnormal endoscopy of upper gastrointestinal tract Acute bacterial sinusitis Anxiety Arthritis Blood transfusion abn reaction or complication, no procedure mishap BMI greater than 30 Cerebral atrophy Chronic back pain Chronic headaches D-dimer, elevated Degenerative joint disease of cervical and lumbar spine Depression Diverticulitis Diverticulosis Gallbladder disease Hemorrhoids History of diverticulitis Hyperlipidemia Hypertension Hypoxia Incisional hernia Left facial numbness LUQ pain Numbness of face Ovarian cyst Panic attack Pulmonary embolism Rash Rectal Hemorrhage Seizures absent seizure Sleep apnea Uterine fibroid Surgical History Surgical History H/O abdominal surgery H/O dilation and curettage H/O endoscopy H/O vein stripping History of appendectomy History of hernia repair incisional hernia with defect measuring approximately 9 cm, lateralization of the rectus muscles on 04/21/23 PDC Hx of cholecystectomy Hx of colectomy AMBER Sigmoid colectomy on 06/05/22 Previous section Family History Family History Father Heart disease Hypertension Diabetes mellitus Mother Diabetes mellitus Heart disease Sibling No problems noted. Grandparent Breast cancer Other Cancer Cerebrovascular accident Social History Social History Smoking packs per day: 1 Smoking cigarettes per day: 20.0 Years smoked: 3 Smoking pack-years: 3.00 Smoking status: Smoker, status unknown Tobacco type: e-cigarettes/vaping Second hand tobacco smoke exposure: Yes (SPOUSE) Additional smoking assessment comments: started vaping 2020 Alcohol intake: current Drinks per week: 1 Alcohol use details: OCAASIONALLY Substance use: never Substance use type: does not use Lack of Transportation: No Lack of Food: Never True Current Housing: I Have Housing
[2023-11-26] MEDS: ceFAZolin 2 GM/D5W 50 ML 2 GM/50 ML BAG IVPB (14:28)
[2023-11-26 17:00] LABS: Hematocrit 16.7 % (37.0-47.0); Hemoglobin 5.5 g/dL (12.0-15.0)
--- NOTE | 2023-11-26 17:02 | SUR.OPER ---
preceeded to open at 145pm.
--- NOTE | 2023-11-26 17:08 | SUR.OPER ---
anesthesia and dr ledezma aware of critical h and h results at 1650
[2023-11-26 17:51] LABS: Hematocrit 28.8 % (37.0-47.0); Hemoglobin 9.7 g/dL (12.0-15.0)
--- NOTE | 2023-11-26 18:04 | W.PM.PROC2 ---
Procedure Note - Detailed Date of Procedure 11/26/23 Pre-op Diagnosis Cyst of Left Ovary, pelvic pain Post-op Diagnosis Same ( intraoperative hemorrhage) Procedure Performed open left salpingo-oophorectomy, intraoperative repair of arteries and veins (by myself, Dr. Ingram, Dr. Garcia). adhesiolysis -3 hours Surgeon Jair Lopez MD Anesthesia General Indications Pelvic pain Findings diffuse dense scarring and adhesions through the abdomen and pelvis. Colon and handed to the anterior abdominal wall along with small intestine. 5 cm ovarian cyst that was scarred to the lateral left pelvic sidewall. Dense fibrous scar tissue and heavy vascularity with delicate veins. Description of Procedure The patient was taken to the operating room. She was prepped and draped in the dorsal lithotomy position after induction general anesthesia. A 5 mm incision was made with a scalpel on the abdominal skin in the left upper quadrant of the abdomen. A 5 mm trocar was inserted into the intra-abdominal cavity under direct visualization the scope. In the same fashion a 5 mm left lower quadrant trocar was inserted and a 5 mm infraumbilical trocar was inserted. a 5 mm trocar was inserted in the right lower quadrant as well. For approximately 1 hour laparoscopic surgery was performed. Adhesiolysis as well as hemorrhage control was performed. Dissection of the left adnexa was performed. Some venous bleeding occurred at the infundibulopelvic ligament. Attempts to control this bleeding led to more bleeding. We elected to open the patient. A low-transverse skin incision was made carried down the level of fascia with the knife. The fascia was incised the midline. The fascial incision was extended laterally. the rectus muscles were midline. Bowel for retractor was inserted and the bowel was packed in the upper abdomen. After several minutes of working and trying to control hemorrhage the low-transverse incision was abandoned. A vertical incision was made from the umbilicus down to the transverse incision. It was carried down the level of the fascia with scalpel. The fascia was incised the midline with the scalpel. The rectus muscle were the midline. This incision was later extended above the umbilicus by Dr. Ingram. Burton retractor was repositioned. Bowel again was packed into the abdomen. More vascular repair and attempt to control bleeding were made. After some time with bleeding controlled, we reached out for general surgeries help on permanent remediation of the bleeding. Dr. Ingram extended the vertical incision above the umbilicus and down the pubic symphysis in similar fashion using cautery and scalpel. the retractors were repositioned. Please see Dr. Santa notes for detail. Dr. Juan Jose Garcia dissected out the ureter. It was uncertain whether this structure was the ureter. Urology was called and a stent was placed. It could be palpated. It confirmed the position of the ureter. the ovary then could be removed by myself using LigaSure cautery the paraovarian tissue, scar tissue was cauterized transected with LigaSure cautery. The ureter could be identified through this entire procedure. the self-retaining retractor was removed. Packing Sponges were removed. the fascia was closed with an 0 looped PDS. The vertical incision and the low-transverse incision were both closed with running 0 looped PDS. The subcutaneous tissue was irrigated and cauterized. The subcutaneous fat was closed in the area of the intersection of the 2 sutures /Incisions. The skin was closed with henri. the the stent was removed at the end of the case. The ureteral stent. Sponge lap needle counts were correct x2. The patient tolerated the procedure well. She was taken recovery room stable condition. Estimated Blood Loss 2,400 Pathology Yes Complications Other complications ( Intraoperative hemorrhage) Condition Stable Disposition Same day
--- NOTE | 2023-11-26 18:23 | PM.CNGS ---
Assessment and Plan Assessment and plan (1) Intra-abdominal bleeding: Code(s): R58 - Hemorrhage, not elsewhere classified Status: Acute Assessment and Plan: See operative report for operative management. (2) Left ovarian cyst: Code(s): N83.202 - Unspecified ovarian cyst, left side Status: Chronic Assessment and Plan: Thought to be source of chronic left lower quadrant pain. History of Present Illness Consult details Consult date: 11/26/23 Requesting physician: Jair Lopez MD Narrative: Patient came in today with pelvic pain and a left ovarian cyst. Attempts were made for laparoscopic ovarian cystectomy however there were many adhesions and the significant bleeding. The surgery was converted to open 1st by Pfannenstiel incision, then converted to open midline incision. I was requested by the operating surgeon to come to the operation and evaluate, control intraoperative bleeding. Patient was asleep with abdomen open on the operating table. No ability to complete history or review of systems. Please see operative note for exam findings. [facility] Past Medical History Medical History Abdominal pain Abnormal endoscopy of upper gastrointestinal tract Acute bacterial sinusitis Anxiety Arthritis Blood transfusion abn reaction or complication, no procedure mishap BMI greater than 30 Cerebral atrophy Chronic back pain Chronic headaches D-dimer, elevated Degenerative joint disease of cervical and lumbar spine Depression Diverticulitis Diverticulosis Gallbladder disease Hemorrhoids History of diverticulitis Hyperlipidemia Hypertension Hypoxia Incisional hernia Left facial numbness LUQ pain Numbness of face Ovarian cyst Panic attack Pulmonary embolism Rash Rectal Hemorrhage Seizures absent seizure Sleep apnea Uterine fibroid Surgical History Surgical History H/O abdominal surgery H/O dilation and curettage H/O endoscopy H/O vein stripping History of appendectomy History of hernia repair incisional hernia with defect measuring approximately 9 cm, lateralization of the rectus muscles on 04/21/23 PDC Hx of cholecystectomy Hx of colectomy AMBER Sigmoid colectomy on 06/05/22 Previous section Family History Family History Father Heart disease Hypertension Diabetes mellitus Mother Diabetes mellitus Heart disease Sibling No problems noted. Grandparent Breast cancer Other Cancer Cerebrovascular accident Social History Social History Smoking packs per day: 1 Smoking cigarettes per day: 20.0 Years smoked: 3 Smoking pack-years: 3.00 Smoking status: Smoker, status unknown Tobacco type: e-cigarettes/vaping Second hand tobacco smoke exposure: Yes (SPOUSE) Additional smoking assessment comments: started vaping 2020 Alcohol intake: current Drinks per week: 1 Alcohol use details: OCAASIONALLY Substance use: never Substance use type: does not use Lack of Transportation: No Lack of Food: Never True Current Housing: I Have Housing Concerned About Future Housing: No Difficulty Paying Gas/Electric Bills: No Difficulty Paying for Meds: No Currently Unemployed: No Education: High School Diploma/GED Difficulty w/ Childcare or Family Care: No Living arrangements: with family Additional living arrangements comments: HUSB AND CHILDREN Occupation/Education: occupation 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
--- NOTE | 2023-11-26 18:27 | P.OP_ITS ---
Procedure Note - Detailed Date of Procedure 11/26/23 Pre-op Diagnosis Cyst of Left Ovary, intra-abdominal bleeding Post-op Diagnosis Same Procedure Performed Control retroperitoneal and pelvic bleeding Surgeon Avtar Ingram MD Project Manager/Team Coach Eduard Lopez MD Anesthesia General Indications Pelvic and retroperitoneal bleeding due to adhesions and difficult dissection in attempts to remove left ovarian cyst Findings Pelvic and retroperitoneal venous bleeding with some generalized oozing. Attempts at finding the left ureter were eventually successful although there was no peristalsis. Dr. Houser was consulted and eventually verified this with placement of a left ureteral stent. Description of Procedure Patient was in lithotomy in the operating room under general anesthesia. She had a midline incision and there was obvious constant oozing of blood in the left retroperitoneum and upper pelvis. There were several ties in the area but constant oozing of blood persisted. Exposure was inadequate initially. I extended the incision caudally nearly to the pubis. This gave us more room to explore. Using suction as well as laparotomy sponges, some retroperitoneal veins were noted to have bleeding. These veins were name less but some more fairly good sized up to 5-6 mm. These bleeding veins were either ligated with 3-0 Vicryl ties or suture ligated. Eventually the bleeding subsided although with any additional dissection or retraction, venous oozing would occur her. Sometimes this resulted in repeat ligation of a retroperitoneal vein to regain hemostasis. Dr. Lopez pointed out the ovarian cyst that had been drained but did wish to resect the left ovary. He was not comfortable doing this without finding the ureter on the left side. We proceeded to use different positioning and retractors and found the left external iliac artery. The incision was lengthened cephalad for more exposure particularly of the descending colon. At this point, my partner, Dr. Garcia, joined us in the operating room for this difficult situation. We were able to find a structure that certainly appeared to be the left ureter. However there was no peristalsis. Dr. Ahuja was consulted and joined the operation. The bleeding was controlled. At this point I left the operating field as Dr. Ahuja, Dr. Garcia and Dr. Lopez were all present to continue with surgery. I was notified later that after stent placement, this structure was indeed the left ureter. There was no evidence of ureteral injury. The left ovary was then able to be safely removed by Dr. Lopez. Estimated Blood Loss -500 Pathology None sent Complications No immediate complications Condition Stable Disposition PACU [facility] Billing Surgery - Charge Forward: Surgery Billing (Control of intraoperative bleeding, exploratory laparotomy)
[2023-11-26] MEDS: fentaNYL CITRATE INJ (*CRX) 100 MCG/2 ML VIAL 25 MCG IV PUSH ×2 (18:47→18:50)
[2023-11-26] MEDS: lamoTRIgine 100 MG TABLET PO (21:53)
[2023-11-26] MEDS: amLODIPine BESYLATE 5 MG TABLET PO (21:53)
[2023-11-26] MEDS: PANTOPRAZOLE 40 MG TABLET PO (21:53)
[2023-11-26] MEDS: HYDROcodone/acetaminophen (*CRX) 5-325 MG TABLET 1 TAB PO (21:53)
[2023-11-26] MEDS: DEXTROSE 5%/0.45% SOD CHL 1,000 ML 125 ML IV CONT (21:54)
[2023-11-26] MEDS: AMITRIPTYLINE HCL 25 MG TABLET PO (21:56)
[2023-11-26] MEDS: lamoTRIgine 25 MG TABLET 50 MG PO (21:56)
[2023-11-27] VITALS (21 sets, daily range): BP systolic 119–152; BP diastolic 62–92; PULSE 104–140; RESP 14–124; TEMP 36–36.8; O2SAT 96–100
[2023-11-27] MEDS: KETOROLAC 30 MG/ML VIAL (*BKC) IV PUSH ×2 (01:31→12:55)
[2023-11-27 04:45] LABS: Basophils Percent Auto 0.1 % (0.2-1.2); Hematocrit 26.6 % (37.0-47.0); Hemoglobin 8.8 g/dL (12.0-15.0); Immature Granulocyte Absolute 0.04 K/mm3 (0.00-0.031); Immature Granulocyte Percent A 0.3 % (0-0.5); Lymphocytes Absolute Auto 0.93 K/mm3 (0.9-3.2); Lymphocytes Percent Auto 6.3 % (18.3-44.2); Mean Corpuscular HGB Conc 33.1 g/dl (32-36); Mean Corpuscular Hemoglobin 30.2 pg (26-34); Mean Corpuscular Volume 91.4 fl (80-100); Mean Platelet Volume 9.3 fl (7.4-10.4); Monocytes Absolute Auto 0.7 K/mm3 (0.1-0.6); Monocytes Percent Auto 4.8 % (2.6-8.5); Neutrophils Percent Auto 88.5 % (45.5-73.1); Platelet Count Result 368 k/mm3 (150-375); Red Blood Count 2.91 M/mm3 (4.2-5.4); Red Cell Distribution Width 12.5 % (11.5-14.5); White Blood Count 14.7 K/mm3 (4.5-10.0)
[2023-11-27] MEDS: DEXTROSE 5%/0.45% SOD CHL 1,000 ML 125 ML IV CONT (06:45)
[2023-11-27] MEDS: HYDROcodone/acetaminophen (*CRX) 5-325 MG TABLET 1 TAB PO ×3 (06:47→20:24)
--- NOTE | 2023-11-27 07:42 | PM.GYNPNOP ---
JUVENILE PROBATION OFFICER - A/P Assessment and plan (1) Left ovarian cyst: Code(s): N83.202 - Unspecified ovarian cyst, left side Status: Chronic (2) Encounter for postoperative care: Code(s): Z48.89 - Encounter for other specified surgical aftercare Status: Acute (3) Tachycardia: Code(s): R00.0 - Tachycardia, unspecified Status: Acute Plan 43-year-old female postop day 1 from open left salpingo-oophorectomy, adhesiolysis, repair vascular injury, intraoperative hemorrhage. Anemia- accompanied with tachycardia, to transfuse 1 unit of blood and observed tachycardia for improvement. , history of DVT, has started Lovenox 30 mg b.i.d. patient appears very well. She is tolerating liquids. She wants to get up and start moving. Not placing flatus yet . Consult wound care for vertical 1 transverse incision for possible wound complication prevention. Postoperative Procedures: Procedures Operation Date: 11/26/23 12:30 Actual Procedure Side Surgeon p Open Left Salpingo-Oophorectomy, Repair of arteries and vein for intraoperative hemorrhage, extensive adhesiolysis Left Jair Lopez MD Time Spent With Patient Time: Total time spent is greater than 50% in coordination of care (as documented) at patient's floor/unit and/or counseling patient: Time with patient: 15 - 25 minutes JUVENILE PROBATION OFFICER- PN:Subj Post-Op Subjective Date/time seen: 11/27/23 07:42 Interval history: Patient tolerating liquids, modest pain, denies shortness of breath. Denies chest pain, denies any leg pain. no flatus. Exam Const: General: healthy appearing, comfortable and no acute distress Resp: Auscultation: clear to auscultation bilaterally, no rales, no rhonchi and no wheezes Cardio: Rate: regular rate Heart sounds: no click, no murmurs and no rubs GI: Inspection: non-distended Auscultation: normal bowel sounds Other: Complex abdominal incision is covered. Extrem: General: normal to inspection, no pedal edema and no calf tenderness JUVENILE PROBATION OFFICER - PN: Obj Data Vital Signs Vital Signs: Vital Signs - 24 hr 11/26/23 10:24 11/26/23 18:03 11/26/23 18:15 Temperature 97.6 F 97.1 F L 97.0 F L Pulse Rate 85 113 H 117 H Respiratory Rate 18 16 18 Blood Pressure 134/86 123/74 125/71 Pulse Oximetry 100 100 100 Oxygen Delivery Room Air Simple Face Mask Simple Face Mask Oxygen Flow Rate 6 10 11/26/23 18:30 11/26/23 18:45 11/26/23 19:00 Temperature 97.4 F L 97.2 F L 97.4 F L Pulse Rate 110 H 107 H 114 H Respiratory Rate 18 19 18 Blood Pressure 120/54 L 115/69 113/62 Pulse Oximetry 100 96 Oxygen Delivery Simple Face Mask Simple Face Mask Room Air Oxygen Flow Rate 10 10 11/26/23 19:15 11/26/23 19:30 11/26/23 19:45 Temperature Pulse Rate 110 H 111 H 112 H Respiratory Rate 17 18 17 Blood Pressure 106/54 L 110/51 L 115/64 Pulse Oximetry 98 98 98 Oxygen Delivery Room Air Room Air Room Air Oxygen Flow Rate 11/26/23 20:00 11/26/23 20:22 11/26/23 20:24 Temperature 97.4 F L 98 F Pulse Rate 115 H 118 H 118 H Respiratory Rate 18 18 18 Blood Pressure 115/64 158/90 H 158/90 H Pulse Oximetry 99 100 100 Oxygen Delivery Room Air Oxygen Flow Rate 11/26/23 20:30 11/26/23 20:45 11/26/23 20:45 Temperature Pulse Rate Respiratory Rate Blood Pressure 150/82 H 151/80 H 151/80 H Pulse Oximetry Oxygen Delivery Oxygen Flow Rate 11/26/23 21:00 11/26/23 21:30 11/26/23 21:30 Temperature Pulse Rate 100 Respiratory Rate 18 Blood Pressure 153/86 H 153/83 H 153/83 H Pulse Oximetry 100 Oxygen Delivery Oxygen Flow Rate 11/26/23 22:00 11/26/23 22:00 11/26/23 20:30 Temperature Pulse Rate 100 100 122 H Respiratory Rate Blood Pressure 146/87 H 146/87 H Pulse Oximetry Oxygen Delivery Oxygen Flow Rate 11/26/23 20:30 11/26/23 23:00 11/26/23 23:21 Temperature 97.5 F L 97.5 F L Pulse Rate 120 H 128 H Respiratory Rate 18 18 Blood Pressure 145/88 H 145/88 H Pul
[2023-11-27] MEDS: SIMETHICONE 80 MG TAB.CHEW PO ×3 (08:00→19:01)
[2023-11-27] MEDS: ENOXAPARIN 30 MG/0.3 ML SYRINGE SUB-Q ×2 (08:30→20:25)
[2023-11-27] MEDS: MULTIVITAMINS THERAPEUTIC TAB (*BKC) 1 TABLET PO (08:54)
[2023-11-27] MEDS: PANTOPRAZOLE 40 MG TABLET PO ×2 (08:54→19:01)
[2023-11-27] MEDS: LOSARTAN POTASSIUM 50 MG TABLET PO (08:54)
[2023-11-27] MEDS: SODIUM CHLORIDE 0.9% IV 250 ML 30 ML IV CONT ×2 (10:00→22:00)
[2023-11-27] MEDS: TUBING, BLOOD PLUM PUMP TUBING 1 EACH XX (10:00)
--- NOTE | 2023-11-27 12:38 | WPDANESPN ---
Anes - Prog Note Post-Op Date/Time: 11/27/23 12:38 Cardiovascular status: normal Respiratory status: normal Airway patency: baseline Mental status: baseline Post-Op hydration status: normal Vital Signs: Last Vital Signs Temp 96.8 F L 11/27/23 11:33 Pulse 120 H 11/27/23 11:33 Resp 18 11/27/23 11:33 BP 152/92 H 11/27/23 11:33 Pulse Ox 99 11/27/23 11:33 O2 Del Method Room Air 11/27/23 08:00 O2 Flow Rate 10 11/26/23 18:45 Pain Score (VAS): 0/10 I/O: Intake & Output 11/26/23 11/27/23 11/27/23 23:59 07:59 15:59 Intake Total 100 1660 120 Output Total 475 1900 Balance -375 -240 120 Laboratory Tests 11/27/23 04:05 11/26/23 11/26/23 11/26/23 14:20 16:50 17:40 WBC RBC Hgb 5.5 L* D 9.7 L D Hct 16.7 L* 28.8 L MCV MCH MCHC RDW Plt Count MPV Immature Gran % (Auto) Neut % (Auto) Lymph % (Auto) [place] % (Auto) Eos % (Auto) Baso % (Auto) Lymph # (Auto) [place] # (Auto) Eos # (Auto) Baso # (Auto) Abs Immat Gran (auto) Absolute Neuts (auto) Absolute Nucleated RBC Nucleated RBC % Blood Type O Positive Antibody Screen Negative Crossmatch See Detail 11/27/23 04:05 WBC 14.7 H RBC 2.91 L Hgb 8.8 L Hct 26.6 L MCV 91.4 MCH 30.2 MCHC 33.1 RDW 12.5 Plt Count 368 MPV 9.3 Immature Gran % (Auto) 0.3 Neut % (Auto) 88.5 H Lymph % (Auto) 6.3 L [place] % (Auto) 4.8 Eos % (Auto) 0.0 Baso % (Auto) 0.1 L Lymph # (Auto) 0.93 [place] # (Auto) 0.7 H Eos # (Auto) 0.0 Baso # (Auto) 0.0 Abs Immat Gran (auto) 0.04 H Absolute Neuts (auto) 13.0 H Absolute Nucleated RBC 0.000 Nucleated RBC % 0.0 Blood Type Antibody Screen Crossmatch Post-procedural complaints: none Patient Feedback: Patient satisfied with anesthetic care.
[2023-11-27] MEDS: amLODIPine BESYLATE 5 MG TABLET PO (20:23)
[2023-11-27] MEDS: lamoTRIgine 25 MG TABLET 50 MG PO (20:24)
[2023-11-27] MEDS: AMITRIPTYLINE HCL 25 MG TABLET PO (20:25)
[2023-11-27] MEDS: lamoTRIgine 100 MG TABLET PO (20:25)
[2023-11-27 21:08] LABS: Hematocrit 29.5 % (37.0-47.0); Hemoglobin 9.9 g/dL (12.0-15.0)
[2023-11-27] MEDS: METOCLOPRAMIDE HCL INJ 10 MG/2 ML VIAL IV PUSH (21:54)
[2023-11-28] VITALS (21 sets, daily range): BP systolic 98–138; BP diastolic 49–73; PULSE 115–153; RESP 14–34; TEMP 36.1–38.5; O2SAT 92–100
[2023-11-28 04:23] LABS: Hematocrit 31.2 % (37.0-47.0); Mean Corpuscular HGB Conc 32.1 g/dl (32-36); Mean Corpuscular Hemoglobin 30.1 pg (26-34); Mean Platelet Volume 9.2 fl (7.4-10.4); Platelet Count Result 296 k/mm3 (150-375); Red Blood Count 3.32 M/mm3 (4.2-5.4); Red Cell Distribution Width 13.6 % (11.5-14.5); White Blood Count 13.4 K/mm3 (4.5-10.0)
[2023-11-28 04:27] LABS: Alanine Aminotransferase 22 U/L (6-35); Albumin Level 3.3 g/dL (3.5-5.1); Alkaline Phosphatase 65 U/L (38-126); Anion Gap 2 mmol/L (4-12); Aspartate Amino Transferase 43 U/L (14-36); Bilirubin,Total 0.9 mg/dL (0.2-1.3); Blood Urea Nitrogen 8 mg/dL (7-17); Calcium 8.3 mg/dL (8.4-10.2); Carbon Dioxide 28 mmol/L (22-30); Chloride 104 mmol/L (98-107); Estimated CRCL calculation 117 ml/min; Estimated Glomerular Filt Rate > 60; Glucose 111 mg/dL (65-110); Potassium 3.8 mmol/L (3.4-5.0); Sodium 134 mmol/L (137-145)
[2023-11-28] MEDS: HYDROcodone/acetaminophen (*CRX) 5-325 MG TABLET 1 TAB PO ×2 (05:49→11:07)
[2023-11-28] MEDS: LOSARTAN POTASSIUM 50 MG TABLET PO (08:21)
[2023-11-28] MEDS: SIMETHICONE 80 MG TAB.CHEW PO ×2 (08:22→11:07)
[2023-11-28] MEDS: ENOXAPARIN 30 MG/0.3 ML SYRINGE SUB-Q ×2 (08:22→20:14)
[2023-11-28] MEDS: PANTOPRAZOLE 40 MG TABLET PO (08:22)
[2023-11-28] MEDS: MULTIVITAMINS THERAPEUTIC TAB (*BKC) 1 TABLET PO (08:22)
[2023-11-28] MEDS: KETOROLAC 30 MG/ML VIAL (*BKC) IV PUSH (08:23)
--- NOTE | 2023-11-28 09:13 | ECG_ITS ---
SEE SCANNED COPY FOR CONFIRMED REPORT MTDD
[2023-11-28 09:58] LABS: Basophils Percent Auto 0.3 % (0.2-1.2); Eosinophils Absolute Auto 0.1 K/mm3 (0-0.3); Eosinophils Percent Auto 0.6 % (0-4.4); Hematocrit 29.4 % (37.0-47.0); Hemoglobin 9.7 g/dL (12.0-15.0); Immature Granulocyte Absolute 0.06 K/mm3 (0.00-0.031); Immature Granulocyte Percent A 0.4 % (0-0.5); Lymphocytes Absolute Auto 1.13 K/mm3 (0.9-3.2); Lymphocytes Percent Auto 7.1 % (18.3-44.2); Mean Corpuscular Hemoglobin 30.4 pg (26-34); Mean Corpuscular Volume 92.2 fl (80-100); Mean Platelet Volume 9.1 fl (7.4-10.4); Monocytes Absolute Auto 0.5 K/mm3 (0.1-0.6); Monocytes Percent Auto 3.3 % (2.6-8.5); Neutrophils Absolute Auto 14.1 K/mm3 (1.3-6.7); Neutrophils Percent Auto 88.3 % (45.5-73.1); Platelet Count Result 297 k/mm3 (150-375); Red Blood Count 3.19 M/mm3 (4.2-5.4); Red Cell Distribution Width 13.7 % (11.5-14.5); White Blood Count 15.9 K/mm3 (4.5-10.0)
[2023-11-28 10:00] LABS: Appearance Urine Clear (Clear); Bacteria Urine None Seen /hpf; Bilirubin Urine Negative (Negative); Blood Urine 3+ (Negative); Color Urine Yellow (Yellow); Glucose Urine UA Negative (Negative); Ketones Urine Negative (Negative); Leukocyte Esterase Ur Trace LEU/UL (Negative); Nitrate Urine Negative (Negative); Non Pathogenic Casts 0-2; Protein Urine 1+ mg/dL (Negative); RBC Urine >100 /hpf (0-2); Squamous Epithelial Cell Urine None Seen /hpf (Few); WBC Urine 0-5 /hpf (0-3)
[2023-11-28 10:05] LABS: Add Urine Microscopic? YES
[2023-11-28 10:07] LABS: INR 1.2; Prothrombin Time 15.5 Seconds (11.1-14.7)
[2023-11-28 10:08] LABS: Partial Thromboplastin Time 36.3 Seconds (22.3-36.8)
[2023-11-28 10:10] LABS: Anion Gap 3 mmol/L (4-12); Blood Urea Nitrogen 7 mg/dL (7-17); Calcium 8.4 mg/dL (8.4-10.2); Carbon Dioxide 26 mmol/L (22-30); Chloride 103 mmol/L (98-107); Estimated CRCL calculation 134 ml/min; Estimated Glomerular Filt Rate > 60; Glucose 132 mg/dL (65-110); Potassium 3.7 mmol/L (3.4-5.0); Sodium 132 mmol/L (137-145)
--- NOTE | 2023-11-28 11:38 | ECG_ITS ---
SEE SCANNED COPY FOR CONFIRMED REPORT MTDD
[2023-11-28 12:17] LABS: Procalcitonin 0.5 ng/mL
--- NOTE | 2023-11-28 12:26 | PM.GYNPNOP ---
REHABILITATION TECHNICIAN - A/P Assessment and plan (1) Tachycardia: Code(s): R00.0 - Tachycardia, unspecified Status: Acute (2) Anemia: Code(s): D64.9 - Anemia, unspecified Status: Acute (3) Left ovarian cyst: Code(s): N83.202 - Unspecified ovarian cyst, left side Status: Chronic (4) Encounter for postoperative care: Code(s): Z48.89 - Encounter for other specified surgical aftercare Status: Acute Plan 43-year-old a female, postop day 2 from open laparotomy with the oophorectomy, intraoperative hemorrhage, postoperative tachycardia and in severe anemia. After 2 units of blood the tachycardia persisted. Her hemoglobin is 10. Hospitalist called to see by me. DVT prophylaxis adequate, wound care has addressed her could atypical incision. Wound VAC has been applied. A belly band applied. Taking home meds. Ambulating. She looks very well. Marked tachycardia while sitting up. Postoperative Procedures: Procedures Operation Date: 11/26/23 12:30 Actual Procedure Side Surgeon p Open Left Salpingo-Oophorectomy, Repair of arteries and vein for intraoperative hemorrhage, extensive adhesiolysis Left Clyde Lopez MD Time Spent With Patient Time: Total time spent is greater than 50% in coordination of care (as documented) at patient's floor/unit and/or counseling patient: Time with patient: 15 - 25 minutes REHABILITATION TECHNICIAN- PN:Subj Post-Op Subjective Date/time seen: 11/28/23 12:26 Patient is up and walking regularly, taking home meds, pain well controlled, seen by wound care, internal medicine called to evaluate tachycardia. Interval history: Patient tolerating liquids, modest pain, denies shortness of breath. Denies chest pain, denies any leg pain.. Exam Const: General: healthy appearing, comfortable and no acute distress Resp: Auscultation: clear to auscultation bilaterally, no rales, no rhonchi and no wheezes Cardio: Rate: regular rate Heart sounds: no click, no murmurs and no rubs GI: Inspection: non-distended Auscultation: normal bowel sounds Other: Incision is bound with belly band, has wound VAC applied. Extrem: General: normal to inspection, no pedal edema and no calf tenderness REHABILITATION TECHNICIAN - PN: Obj Data Vital Signs Vital Signs: Vital Signs - 24 hr 11/27/23 12:33 11/27/23 12:33 11/27/23 16:00 Temperature 97.4 F L 97.4 F L 98 F Pulse Rate 121 H 121 H 125 H Respiratory Rate 16 16 18 Blood Pressure 126/72 126/72 119/69 Pulse Oximetry 98 98 99 Oxygen Delivery 11/27/23 14:00 11/27/23 16:00 11/27/23 18:00 Temperature Pulse Rate 104 H 125 H 120 H Respiratory Rate Blood Pressure Pulse Oximetry Oxygen Delivery 11/27/23 16:00 11/27/23 20:00 11/27/23 20:00 Temperature 98.0 F Pulse Rate 131 H 130 H Respiratory Rate 16 Blood Pressure 123/74 Pulse Oximetry 97 Oxygen Delivery Room Air 11/27/23 20:00 11/27/23 21:32 11/27/23 22:45 Temperature 97.8 F Pulse Rate 130 H 140 H 126 H Respiratory Rate 16 16 Blood Pressure 122/71 Pulse Oximetry 97 96 Oxygen Delivery Room Air 11/27/23 23:07 11/27/23 23:32 11/27/23 23:32 Temperature 97.9 F Pulse Rate 126 H 124 H 124 H Respiratory Rate 124 H 16 Blood Pressure 120/62 Pulse Oximetry 96 96 Oxygen Delivery Room Air 11/28/23 00:07 11/28/23 00:07 11/28/23 01:07 Temperature 97.6 F 97.6 F 97.5 F L Pulse Rate 119 H 119 H 118 H Respiratory Rate 18 18 16 Blood Pressure 120/66 120/66 118/60 Pulse Oximetry 95 95 96 Oxygen Delivery 11/28/23 01:58 11/28/23 02:00 11/28/23 04:00 Temperature 97.0 F L Pulse Rate 123 H 115 H 124 H Respiratory Rate 16 Blood Pressure 101/73 Pulse Oximetry 96 Oxygen Delivery 11/28/23 04:00 11/28/23 04:00 11/28/23 05:25 Temperature 97.5 F L Pulse Rate 124 H 129 H 120 H Respiratory Rate 16 16 Blood Pressure 121/71 Pulse Oximetry 96 96 Oxygen Delivery Room Air 11/28/23 07:41 11/28/23 08:00 11/28/23 08:00 T
[2023-11-28] MEDS: cefTRIAXone 2 GM/NS 100 ML 2 GM/100 ML BAG IVPB (13:05)
[2023-11-28] MEDS: metroNIDAZOLE 500 MG TABLET PO (13:06)
--- NOTE | 2023-11-28 13:38 | PM.IMCN ---
Assessment and Plan Assessment and plan (1) Septic shock: Code(s): A41.9 - Sepsis, unspecified organism; R65.21 - Severe sepsis with septic shock Status: Acute Assessment and Plan: - meets SIRS criteria: HR, WBC. intermittent soft BP. - lactic acid: 3.0 and procalcitonin 0.5 - 30 mL/kg = 3,300. 3L bolus of LR ordered. - suspected source: post-operative infection versus circulatory shock - started on ceftriaxone and metronidazole on 11/27, exchanged to meropenem and vancomycin on 11/27 - blood cultures drawn on 11/27 - UA: 1+ protein, 3+ blood, trace leuks, greater than 100 RBC, no epithelial cells, no bacteria. Urine culture pending. - CXR: Mild atelectasis at the lung bases. - CT chest/abd/pelvis: 1. Postoperative changes of recent left oophorectomy with small amount of gas and fluid in the left pelvic retroperitoneum and in the intraperitoneal deep pelvis most likely postoperative in etiology. No evident organized abscess. 2. Fluid-filled but not likely dilated loops of small bowel without discrete transition point to suggest obstruction is most likely represents a postoperative ileus. 3. Atelectasis and volume loss in the bilateral lower lobes. 4. IUD in expected position within the anteverted uterus. - currently admitted to IMU, transferred to ICU and cable splicer helper consulted (2) Tachycardia: Code(s): R00.0 - Tachycardia, unspecified Status: Acute Assessment and Plan: - trending cbc, currently stable - abx: ceftriaxone and metronidazole on 11/27, exchanged to meropenem and vancomycin on 11/27 - CT chest/abdomen/pelvis, see above - sepsis bolus initiated, 3 L of LR - lactic 3.0, trend - TSH ordered - echo - troponin x2 - trial of 2.5 IVP of Lopressor, 150's -> 130's - has history of PE postoperatively, on Lovenox 30 b.i.d. for prophylaxis. later developed hypoxia, 98% on RA. placed on supplemental O2 and VQ Scan ordered. - cardiology consulted, Ricarda BATEMAN. No further recommendations at this time. - telemetry monitoring (3) Hypoxia: Code(s): R09.02 - Hypoxemia Status: Acute Assessment and Plan: - hypoxia, tachypnea, and tachycardia. - started on supplemental O2, currently requiring 2 L nasal cannula - V/Q scan, has history of PE and DVT postoperatively - no anemia, continue to trend CBC - ABG (4) Left ovarian cyst: Code(s): N83.202 - Unspecified ovarian cyst, left side Status: Chronic Assessment and Plan: - surgical management on 11/25 with significant intra-operative complications. see operative notes and HPI. - incisions approximated and free of outward signs of infection, abdomen is soft/nontender, woudn vac in place - trending cbc - started on abx - Jessica BATEMAN primary - continue abdominal exams and wound care (5) Intra-abdominal bleeding: Code(s): R58 - Hemorrhage, not elsewhere classified Status: Acute Assessment and Plan: - trend cbc - on exam there was dark, scant blood from vagina with small clots - CT chest/abd/pelvis: Postoperative changes of recent left oophorectomy with small amount of gas and fluid in the left pelvic retroperitoneum and in the intraperitoneal deep pelvis most likely postoperative in etiology. No evident organized abscess. - continue abdominal exams (6) Postoperative ileus: Code(s): K91.89 - Other postprocedural complications and disorders of digestive system; K56.7 - Ileus, unspecified Status: Acute Assessment and Plan: - CT chest/abd/pelvis:Fluid-filled but not likely dilated loops of small bowel without discrete transition point to suggest obstruction is most likely represents a postoperative ileus. - met SIRS criteria, started on antibiotics - recheck CMP, correct electrolytes as needed - NPO - 1 time dose of Mylanta for GERD like symptoms - active BS in all quadrants on exam, continue serial abdominal exams (7) Sleep apnea: Qualifiers:
[2023-11-28 14:03] LABS: Hematocrit 32.6 % (37.0-47.0); Hemoglobin 10.9 g/dL (12.0-15.0)
[2023-11-28] MEDS: METOCLOPRAMIDE HCL INJ 10 MG/2 ML VIAL IV PUSH ×2 (14:11→19:59)
[2023-11-28] MEDS: LACTATED RINGERS 1,000 ML 999 ML IV CONT ×2 (14:43→16:15)
[2023-11-28 15:45] LABS: Hematocrit 30.6 % (37.0-47.0); Hemoglobin 10.1 g/dL (12.0-15.0)
--- NOTE | 2023-11-28 16:54 | ECG_ITS ---
SEE SCANNED COPY FOR CONFIRMED REPORT MTDD
--- NOTE | 2023-11-28 16:54 | ECG_ITS ---
SEE SCANNED COPY FOR CONFIRMED REPORT MTDD
--- NOTE | 2023-11-28 17:18 | PC.NURSE ---
This patient, Devi Chow, was transferred to [ICU 7] on 11/28/23 at 1718. Personal belongings sent with patient. Report given to [Jenifer WILSON]. Appropriate documentation sent with patient.
[2023-11-28] MEDS: VANCOMYCIN 1,250 MG/NS 250 ML 1,250 MG/250 ML BAG 166.67 MG IVPB ×2 (17:54→19:16)
[2023-11-28] MEDS: METOPROLOL TARTRATE INJ 5 MG/5 ML VIAL 2.5 MG IV PUSH (17:59)
[2023-11-28 18:43] LABS: Reflex Lactic Acid Yes or No Add Lactic
[2023-11-28] MEDS: MAG HYDROX/AL HYDROX/SIMETH 30 ML UDC PO (18:46)
[2023-11-28] MEDS: MEROPENEM 1 GM/NS 100 ML 1 GM/100 ML BAG IVPB (18:47)
[2023-11-28] MEDS: LACTATED RINGERS 1,000 ML 100 ML IV CONT (19:13)
[2023-11-28 19:45] LABS: Alveolar/Arterial O2 Gradient 92.7 mmHg; Base Excess ABG 0.6 mEq/l (+/-2.0); Fractional Inspired Oxygen 28 %; Oxygen Content ABG 13.4 %vol (16.0-22.0); Oxygen Saturation ABG 94.6 % (95.0-100.0); Oxyhemoglobin 93.1 % THb (90.0-100.0); PCO2 ABG 33.8 mmHg (35.0-45.0); PO2 ABG 67.1 mmHg (80.0-100.0); Total Hemoglobin 10.2 g/dL (12.0-18.0); pH ABG 7.469 (7.350-7.450)
[2023-11-28 19:46] LABS: Device NASAL CANNULA; Modified Allen's Test Pass; Site Drawn RIGHT RADIAL
[2023-11-28 20:10] LABS: Hemoglobin 9.4 g/dL (12.0-15.0)
[2023-11-28] MEDS: PANTOPRAZOLE SODIUM IV 40 MG VIAL IV PUSH (20:14)
[2023-11-28 20:22] LABS: Lactic Acid 1.5 mmol/L (0.7-2.0)
[2023-11-28 20:22] LABS: Alanine Aminotransferase 19 U/L (6-35); Albumin Level 3.3 g/dL (3.5-5.1); Alkaline Phosphatase 70 U/L (38-126); Anion Gap 6 mmol/L (4-12); Aspartate Amino Transferase 35 U/L (14-36); Bilirubin,Total 1.1 mg/dL (0.2-1.3); Blood Urea Nitrogen 9 mg/dL (7-17); Calcium 8.4 mg/dL (8.4-10.2); Carbon Dioxide 22 mmol/L (22-30); Chloride 104 mmol/L (98-107); Estimated CRCL calculation 103 ml/min; Estimated Glomerular Filt Rate > 60; Glucose 137 mg/dL (65-110); Magnesium 1.6 mg/dL (1.6-2.3); Phosphorus 2.8 mg/dL (2.5-4.5); Potassium 3.8 mmol/L (3.4-5.0); Sodium 132 mmol/L (137-145)
[2023-11-28] MEDS: lamoTRIgine 25 MG TABLET 50 MG PO (20:36)
[2023-11-28] MEDS: lamoTRIgine 100 MG TABLET PO (20:36)
[2023-11-28 21:31] LABS: Thyroid Stimulating Hormone Reflex 0.553 uIU/mL (0.465-4.68)
[2023-11-28] MEDS: ACETAMINOPHEN 325 MG TABLET 650 MG PO (21:42)
--- NOTE | 2023-11-28 22:09 | PC.NURSE ---
Dr. Parker called and updated on patient's condition. Vitals, labs, meds, and subjective patient complaints discussed. New labs and tylenol for fever ordered for now.
--- NOTE | 2023-11-28 23:16 | PC.NURSE ---
The wound vac has been kicking into an error state. I initially attempted to troubleshoot the problem myself but was unable to resolve the issue. I then called the 800 number on the wound vac and obtained troubleshooting help from the manager statistical. It was determined that there is a leak in the dressing itself. After several attempts to patch the dressing unsuccessfully Dr. Lopez was called. Received orders to turn off the wound vac and to leave the dressing in place for now.
[2023-11-28] MEDS: MAGNESIUM SULF 1 GM/D5W 100 ML 1 GM/100 ML BAG IVPB (23:28)
[2023-11-28 23:45] LABS: Troponin I 0.019 ng/mL (0.000-0.034)
[2023-11-28] MEDS: methylPREDNISolone SOD SUCC 40 MG VIAL IV PUSH (23:56)
[2023-11-29] VITALS (13 sets, daily range): BP systolic 119–143; BP diastolic 61–86; PULSE 118–128; RESP 20–95; TEMP 36.2–37.8; O2SAT 93–98
--- NOTE | 2023-11-29 | ECHO_ITS ---
Patient Info Name: Devi Chow Age: 43 years : 1980 Gender: Female Ht: 68 in Wt: 236 lbs BSA: 2.31 m2 HR: 123 bpm BP: 135 / 72 mmHg Heart Rhythm: Tachycardia Technical Quality: Good Exam Date: 11/29/2023 12:13 PM Exam Location: Echo Lab Patient Status: Inpatient Admit Date: 11/26/2023 Staff Ordering Physician: Sabiha Wright APRN Timber Feller: Luciana Simpson RDCS Attending Provider: Clyde Lopez MD Referring Physician: Adriana ANTONIO; Exam Type: CA echo doppler color flow Study Info Indications - TACCHYCARDIA Complete two-dimensional, color flow and Doppler transthoracic echocardiogram is performed. Summary 1. Complete two-dimensional, color flow and Doppler transthoracic echocardiogram is performed. 2. Somewhat challenging study with suboptimal patient position. 3. Normal left ventricular size and hyperdynamic systolic function indicating a state of increased inotrope PICC stimulation. 4. Normal appearing and functioning cardiac valves. 5. Sinus tachycardia. 6. No pericardial effusion. Left Ventricle Left ventricular chamber dimension is normal. Left ventricular systolic function is hyperdynamic, estimated at >70%. The left ventricular diastolic function is normal. Right Ventricle Right ventricular chamber dimension is normal. Left Atria Left atrial chamber dimension is normal. Right Atria Right atrial chamber dimension is normal. Aortic Valve The aortic valve is normal. Pulmonic Valve The pulmonic valve is not well visualized. Mitral Valve The mitral valve has normal leaflets. Tricuspid Valve The tricuspid valve leaflets are normal. Pericardium/Pleural The pericardium appears normal. Aorta The aortic root size at the sinus of Valsalva is normal. Report Signatures
[2023-11-29] MEDS: MEROPENEM 1 GM/NS 100 ML 1 GM/100 ML BAG IVPB ×3 (00:25→17:00)
[2023-11-29 01:39] LABS: MRSA (PCR) NOT DETECTED (NOT DETECTE)
[2023-11-29 04:41] LABS: Basophils Percent Auto 0.2 % (0.2-1.2); Hematocrit 27.7 % (37.0-47.0); Hemoglobin 9.2 g/dL (12.0-15.0); Immature Granulocyte Absolute 0.08 K/mm3 (0.00-0.031); Immature Granulocyte Percent A 0.5 % (0-0.5); Lymphocytes Absolute Auto 0.58 K/mm3 (0.9-3.2); Lymphocytes Percent Auto 3.6 % (18.3-44.2); Mean Corpuscular HGB Conc 33.2 g/dl (32-36); Mean Corpuscular Hemoglobin 30.9 pg (26-34); Mean Platelet Volume 9.4 fl (7.4-10.4); Monocytes Absolute Auto 0.3 K/mm3 (0.1-0.6); Monocytes Percent Auto 1.8 % (2.6-8.5); Neutrophils Absolute Auto 15.3 K/mm3 (1.3-6.7); Neutrophils Percent Auto 93.9 % (45.5-73.1); Platelet Count Result 296 k/mm3 (150-375); Red Blood Count 2.98 M/mm3 (4.2-5.4); Red Cell Distribution Width 13.8 % (11.5-14.5); White Blood Count 16.3 K/mm3 (4.5-10.0)
[2023-11-29 04:56] LABS: Alanine Aminotransferase 19 U/L (6-35); Albumin Level 3.3 g/dL (3.5-5.1); Alkaline Phosphatase 73 U/L (38-126); Anion Gap 5 mmol/L (4-12); Aspartate Amino Transferase 28 U/L (14-36); Blood Urea Nitrogen 9 mg/dL (7-17); Calcium 8.3 mg/dL (8.4-10.2); Carbon Dioxide 25 mmol/L (22-30); Chloride 103 mmol/L (98-107); Estimated CRCL calculation 117 ml/min; Estimated Glomerular Filt Rate > 60; Glucose 160 mg/dL (65-110); Magnesium 2.1 mg/dL (1.6-2.3); Phosphorus 3.1 mg/dL (2.5-4.5); Sodium 133 mmol/L (137-145)
[2023-11-29] MEDS: VANCOMYCIN 1,500 MG/NS 500 ML 1,500 MG/500 ML BAG 250 MG IVPB ×2 (05:01→17:03)
[2023-11-29] MEDS: methylPREDNISolone SOD SUCC 40 MG VIAL IV PUSH ×2 (05:01→07:59)
[2023-11-29] MEDS: LACTATED RINGERS 1,000 ML 100 ML IV CONT ×2 (05:12→21:26)
--- NOTE | 2023-11-29 07:34 | PM.GYNPNOP ---
TRUCK MANAGER - A/P Assessment and plan (1) Postoperative ileus: Code(s): K91.89 - Other postprocedural complications and disorders of digestive system; K56.7 - Ileus, unspecified Status: Acute (2) Tachycardia: Code(s): R00.0 - Tachycardia, unspecified Status: Acute Plan postoperative day 3. From open left oophorectomy with bleeding complication and repair of vascular injury. Intraoperative consult with General surgery -Dr. Ingram and Dr. Garcia. patient developed an ileus, there is fever of unknown etiology, concern about pulmonary embolism, CT scan with contrast today to hopefully identify source for respiratory changes and fever. ICU care. Malfunction of wound VAC. Postoperative Procedures: Procedures Operation Date: 11/26/23 12:30 Actual Procedure Side Surgeon p Open Left Salpingo-Oophorectomy, Repair of arteries and vein for intraoperative hemorrhage, extensive adhesiolysis Left Clyde Lopez MD Time Spent With Patient Time: Total time spent is greater than 50% in coordination of care (as documented) at patient's floor/unit and/or counseling patient: Time with patient: 15 - 25 minutes TRUCK MANAGER- PN:Subj Post-Op Subjective Date/time seen: 11/29/23 07:34 No flatus, patient appeared reasonably comfortable, minimal pain, no shortness of breath with oxygen, no chest pain, no nausea or vomiting. No leg pain. Appreciates fever Interval history: Patient tolerating liquids, modest pain, denies shortness of breath. Denies chest pain, denies any leg pain.. Exam Const: General: healthy appearing, comfortable and no acute distress Resp: Auscultation: clear to auscultation bilaterally, no rales, no rhonchi and no wheezes Cardio: Rate: regular rate Heart sounds: no click, no murmurs and no rubs GI: Inspection: non-distended Auscultation: normal bowel sounds Extrem: General: normal to inspection, no pedal edema and no calf tenderness TRUCK MANAGER - PN: Obj Data Vital Signs Vital Signs: Vital Signs - 24 hr 11/28/23 07:41 11/28/23 08:00 11/28/23 08:00 Temperature 99.7 F H Pulse Rate 134 H 133 H Respiratory Rate 20 Blood Pressure 130/68 Pulse Oximetry 92 Oxygen Delivery Room Air Oxygen Flow Rate 11/28/23 10:00 11/28/23 12:00 11/28/23 14:01 Temperature 98.9 F Pulse Rate 137 H 144 H Respiratory Rate 14 Blood Pressure 98/70 L 99/55 L Pulse Oximetry 100 Oxygen Delivery Oxygen Flow Rate 11/28/23 14:42 11/28/23 12:00 11/28/23 12:00 Temperature 99.0 F Pulse Rate 152 H 142 H Respiratory Rate Blood Pressure 138/64 Pulse Oximetry Oxygen Delivery Room Air Oxygen Flow Rate 11/28/23 14:00 11/28/23 17:04 11/28/23 17:59 Temperature 99.9 F H Pulse Rate 150 H 152 H 149 H Respiratory Rate 20 Blood Pressure 135/60 Pulse Oximetry 93 Oxygen Delivery Oxygen Flow Rate 11/28/23 16:00 11/28/23 16:00 11/28/23 18:00 Temperature Pulse Rate 153 H 148 H Respiratory Rate Blood Pressure Pulse Oximetry Oxygen Delivery Room Air Oxygen Flow Rate 11/28/23 20:00 11/28/23 21:42 11/28/23 20:00 Temperature 101.3 F H Pulse Rate 140 H Respiratory Rate 34 H Blood Pressure 104/49 L Pulse Oximetry 95 98 Oxygen Delivery Nasal Cannula Oxygen Flow Rate 2 11/28/23 23:21 11/29/23 00:00 11/29/23 00:00 Temperature 100.0 F H 100.0 F H Pulse Rate 123 H 121 H Respiratory Rate 26 H 25 H Blood Pressure 109/64 119/72 Pulse Oximetry 97 98 98 Oxygen Delivery Nasal Cannula Oxygen Flow Rate 2 11/28/23 20:00 11/28/23 22:00 11/29/23 00:00 Temperature Pulse Rate 138 H 132 H 123 H Respiratory Rate Blood Pressure Pulse Oximetry Oxygen Delivery Oxygen Flow Rate 11/29/23 02:00 11/29/23 02:00 11/29/23 04:00 Temperature 98.8 F 99.2 F Pulse Rate 119 H 119 H 123 H Respiratory Rate 26 H 95 H Blood Pressure 135/61 135/72 Pulse Oximetry 98 95 Oxygen Delivery Oxygen Flow Rate
[2023-11-29] MEDS: diphenhydrAMINE HCl INJ 50 MG/ML VIAL IV PUSH (07:37)
[2023-11-29] MEDS: SIMETHICONE 80 MG TAB.CHEW PO ×3 (07:45→17:04)
[2023-11-29] MEDS: ACETAMINOPHEN 325 MG TABLET 650 MG PO (07:46)
[2023-11-29] MEDS: ENOXAPARIN 30 MG/0.3 ML SYRINGE SUB-Q ×2 (07:59→21:20)
[2023-11-29] MEDS: PANTOPRAZOLE SODIUM IV 40 MG VIAL IV PUSH ×2 (07:59→21:21)
[2023-11-29] MEDS: MULTIVITAMINS THERAPEUTIC TAB (*BKC) 1 TABLET PO (08:00)
[2023-11-29] MEDS: METOCLOPRAMIDE HCL INJ 10 MG/2 ML VIAL IV PUSH ×2 (08:03→12:39)
[2023-11-29] MEDS: ONDANSETRON INJ 4 MG/2 ML VIAL IV PUSH (09:40)
--- NOTE | 2023-11-29 09:41 | WPDCNINT ---
Assessment and Plan Assessment and plan (1) Postoperative ileus: Code(s): K91.89 - Other postprocedural complications and disorders of digestive system; K56.7 - Ileus, unspecified Status: Acute Assessment and Plan: Patient has developed postoperative ileus Minimize opioids Up in chair if okay with surgery NPO except meds with sips Currently denies any nausea vomiting but may need NG tube if develops (2) Sepsis: Code(s): A41.9 - Sepsis, unspecified organism Status: Acute Assessment and Plan: Patient exhibiting signs of sepsis yesterday she was on Rocephin and Flagyl prior to that Elevated WBC elevated lactic acid level tachycardia but stable hemodynamics CT scan showed 1. Postoperative changes of recent left oophorectomy with small amount of gas and fluid in the left pelvic retroperitoneum and in the intraperitoneal deep pelvis most likely postoperative in etiology. No evident organized abscess. 2. Fluid-filled but not likely dilated loops of small bowel without discrete transition point to suggest obstruction is most likely represents a postoperative ileus. 3. Atelectasis and volume loss in the bilateral lower lobe Will discuss with General surgery regarding evaluating wound Antibiotics changed to meropenem and vancomycin Patient was given 2 L fluid bolus and is currently on IV fluids Antihypertensive medications were held Blood and urine culture culture sent 11/27 and results pending (3) Tachycardia: Code(s): R00.0 - Tachycardia, unspecified Status: Acute Assessment and Plan: Patient developed sinus tachycardia postop which had been gradually getting worse. Likely secondary to sepsis Patient received IV fluids and antibiotics were changed. Patient was also given 2.5 Lopressor IV x1 TSH normal Tachycardia has improved now and patient is 120s Pain control Cardiology consulted Echo ordered and pending CTA negative for PE (4) Left ovarian cyst: Code(s): N83.202 - Unspecified ovarian cyst, left side Status: Chronic Assessment and Plan: Status post complicated open left oophorectomy which was complicated by significant bleeding complications requiring repair of vascular injury. Hemoglobin appears stable Management for sql report analyst and General surgery Wound management by general surgery (5) Hypoxia: Code(s): R09.02 - Hypoxemia Status: Acute Assessment and Plan: Patient requiring 2 L nasal cannula. This appears to be multifactorial secondary to atelectasis sleep apnea ABG done on transferred to ICU was reviewed Incentive spirometer ordered CTA negative for PE Plan DVT prophylaxis -Lovenox Stress ulcer prophylaxis -PPI Nutrition -npo Code Status - Full Code Incentive spirometry Up in chair Sheet Heater Helper Consult Note Consult date: 11/29/23 Reason for consult: Tachycardia, sepsis HPI: Devi Chow is a 43 year old female who was admitted on 11/25 for surgical management of a left ovarian cyst that had been causing pelvic pain with PMH of anxiety/depression, diverticulitis/diverticulosis, hernia repair with post-op PE, HTN, HLD, seizures (absent type), and sleep apnea. Patient states she had abdominal hernia repair surgery last year and developed a PE postop and was on anticoagulation for 3 months. Patient's surgery became complicated and was started laparoscopically but converted to open due to intra-abdominal bleeding and adhesions. Bleeding was difficult to control and a general surgeon assistance was needed during the surgery and later urologist was consulted emergently. Her hemoglobin dropped and patient required significant amount of blood product transfusion perioperatively. On review of records patient has been tachycardic since her surgery. She was started on Lovenox for DVT prophylaxis. She received 1 unit of PRBC on 11/26 and patient had sinus tachycardia. Patient also had developed ileus postoperatively Yesterday11/27 surgeon consulted
[2023-11-29] MEDS: HYDROcodone/acetaminophen (*CRX) 10-325 MG TABLET 1 TAB PO (11:31)
--- NOTE | 2023-11-29 11:34 | ECG_ITS ---
SEE SCANNED COPY FOR CONFIRMED REPORT MTDD
--- NOTE | 2023-11-29 12:52 | PM.CNCAR ---
Assessment and Plan Assessment and plan (1) Tachycardia: Code(s): R00.0 - Tachycardia, unspecified Status: Acute Plan This is a 43-year-old lady without previous cardiac history who has significant sinus tachycardia following complicated surgery several days ago to treat in a ovarian cyst. Unfortunately significant event intra-abdominal bleeding and retroperitoneal bleeding was encountered and required assistance of a team of several surgeons to bring under control. Her hemoglobin did drop significantly as mentioned above and following this event she is also febrile. I believe her sinus tachycardia is a physiologic, not a pathological rhythm. I will review her echocardiogram when this study is available and if necessary provide further complaints at this point there are no specific cardiac treatments for physiologic sinus tachycardia Jimenez Chowdary MD [facility] History of Present Illness History of Present Illness Consult date/time: 11/29/23 12:52 Reason For Visit: Cyst of Left Ovary Narrative: This is a very pleasant but somewhat unfortunate 43-year-old lady that I am seeing at the request of the hospitalist today because of sinus tachycardia. The patient is not known to have any cardiac problems in the past and she is not having any cardiovascular complaints at this time. She was admitted to this hospital as an outpatient on 11/26/2023 for surgery for a left ovarian cyst. This surgery was significantly complicated by retroperitoneal hemorrhage. General surgeons and neurologists were called into the OR or to assist with this very difficult situation there was apparently a lot of retroperitoneal venous bleeding that took some time to control and ultimately she was taken back to the ICU for recovery. Because of all the bleeding her hemoglobin dropped from normal to 5.5 and she has received quite a bit of red cell transfusion. She since then has been tachycardic with heart rates in the 120-130 rate yesterday her heart rate was up in the 150s but all of the rhythm was sinus tachycardia there were no evidence of any pathological arrhythmias she is not having any cardiac complaints such as chest pain or difficulty breathing. She has a previous history of pulmonary embolism complicating surgery last year and so a CTA was done of the chest today which was negative for evidence of PE. An echocardiogram has been done the at the request of the primary team the results of that are pending at the time of this dictation. He does have hypertension and obesity with a BMI of 35.9. Review of Systems Constitutional: Constitutional: Reports no additional constitutional complaints Eyes: Eyes: Reports no additional eye complaints ENT: Reports system reviewed and no additional complaints, except as documented Cardiovascular: Cardiovascular: Reports no additional cardiovascular complaints Respiratory: Respiratory: Reports no additional respiratory complaints Gastrointestinal: Gastrointestinal: Reports as per HPI Genitourinary: Genitourinary: Reports as per HPI Musculoskeletal: Musculoskeletal: Reports no additional musculoskeletal complaints Integumentary/Breasts: Skin/Breast: Reports system reviewed and no additional complaints, except as docu Neurologic: Reports system reviewed and no additional complaints, except as documented Endocrine: Endocrine: Reports no additional endocrine complaints Hematologic/Lymphatic: Hematologic/Lymphatic: Reports no additional hematologic/lymphatic complaints Allergic/Immunologic: Allergic/Immunologic: Reports no additional allergic/immunologic complaints PMFSH Past Medical History Medical History Abdominal pain Abnormal endoscopy of upper gastrointestinal tract Acute bacterial sinusitis Anxiety Arthritis Blood transfusion abn reaction or complication, no procedure mishap BMI greater than 30 Cerebral atrophy Chronic back pain Chronic heada
--- NOTE | 2023-11-29 13:24 | PM.GYNPNOP ---
SIGN PAINTER HELPER - A/P Assessment and plan (1) Postoperative ileus: Code(s): K91.89 - Other postprocedural complications and disorders of digestive system; K56.7 - Ileus, unspecified Status: Acute Assessment and Plan: 11/29/23 13:24 . stop by to check on patient again, , examine wound VAC, and talked to nursing. Wound VAC is malfunctioning. There was a leak. Nurse discussed identifying the leaking the taping it down. She is going to reach out to Wound Care to see if anybody can be reached to discuss solutions. Considering larger wound vacs and placement by ICU staff. More bowel sounds and earlier in the day. No flatus. Was a emesis after getting pain medication. Seen by cardiology. Discussed case with Dr. Ingram, discussed CT scan. He will look at CT scan and stop by and see the patien Postoperative Procedures: Procedures Operation Date: 11/26/23 12:30 Actual Procedure Side Surgeon p Open Left Salpingo-Oophorectomy, Repair of arteries and vein for intraoperative hemorrhage, extensive adhesiolysis Left Clyde Lopez MD Time Spent With Patient Time: Total time spent is greater than 50% in coordination of care (as documented) at patient's floor/unit and/or counseling patient: Time with patient: less than 15 minutes SIGN PAINTER HELPER- PN:Subj Post-Op Subjective Date/time seen: 11/29/23 13:24 . stop by to check on patient again, , examine wound VAC, and talked to nursing. Wound VAC is malfunctioning. There was a leak. Nurse discussed identifying the leaking the taping it down. She is going to reach out to Wound Care to see if anybody can be reached to discuss solutions. Considering larger wound vacs and placement by ICU staff. More bowel sounds and earlier in the day. No flatus. Was a emesis after getting pain medication. Seen by cardiology. Discussed case with Dr. Ingram, discussed CT scan. He will look at CT scan and stop by and see the patient. SIGN PAINTER HELPER - PN: Obj Data Vital Signs Vital Signs: Vital Signs - 24 hr 11/28/23 14:01 11/28/23 14:42 11/28/23 14:00 Temperature 99.0 F Pulse Rate 152 H 150 H Respiratory Rate Blood Pressure 99/55 L 138/64 Pulse Oximetry Oxygen Delivery Oxygen Flow Rate 11/28/23 17:04 11/28/23 17:59 11/28/23 16:00 Temperature 99.9 F H Pulse Rate 152 H 149 H 153 H Respiratory Rate 20 Blood Pressure 135/60 Pulse Oximetry 93 Oxygen Delivery Oxygen Flow Rate 11/28/23 16:00 11/28/23 18:00 11/28/23 20:00 Temperature Pulse Rate 148 H 140 H Respiratory Rate 34 H Blood Pressure 104/49 L Pulse Oximetry 95 Oxygen Delivery Room Air Oxygen Flow Rate 11/28/23 21:42 11/28/23 20:00 11/28/23 23:21 Temperature 101.3 F H 100.0 F H Pulse Rate 123 H Respiratory Rate 26 H Blood Pressure 109/64 Pulse Oximetry 98 97 Oxygen Delivery Nasal Cannula Oxygen Flow Rate 2 11/29/23 00:00 11/29/23 00:00 11/28/23 20:00 Temperature 100.0 F H Pulse Rate 121 H 138 H Respiratory Rate 25 H Blood Pressure 119/72 Pulse Oximetry 98 98 Oxygen Delivery Nasal Cannula Oxygen Flow Rate 2 11/28/23 22:00 11/29/23 00:00 11/29/23 02:00 Temperature 98.8 F Pulse Rate 132 H 123 H 119 H Respiratory Rate 26 H Blood Pressure 135/61 Pulse Oximetry 98 Oxygen Delivery Oxygen Flow Rate 11/29/23 02:00 11/29/23 04:00 11/29/23 04:00 Temperature 99.2 F Pulse Rate 119 H 123 H 122 H Respiratory Rate 95 H Blood Pressure 135/72 Pulse Oximetry 95 Oxygen Delivery Oxygen Flow Rate 11/29/23 04:00 11/29/23 06:00 11/29/23 06:00 Temperature 98.8 F Pulse Rate 121 H 121 H Respiratory Rate 23 H Blood Pressure 130/75 Pulse Oximetry 97 96 Oxygen Delivery Nasal Cannula Oxygen Flow Rate 2 11/29/23 08:00 11/29/23 10:00 11/29/23 12:00 Temperature Pulse Rate 126 H 128 H 121 H Respiratory Rate Blood Pressure Pulse Oximetry Oxygen Delivery Oxygen Flow Rate 11/29/23 08:00 05
--- NOTE | 2023-11-29 14:33 | PM.PNGS ---
Progress Note: A&P Assessment and Plan (1) Postoperative ileus: Code(s): K91.89 - Other postprocedural complications and disorders of digestive system; K56.7 - Ileus, unspecified Status: Acute Assessment and Plan: I discussed this with Dr. Lopez and the diversity manager, Dr. Parker. Will make NPO except ice chips and some sips an I then placed a nasogastric tube in the stomach. She is already evacuating large amounts of dark green gastric content. Advise she will likely need this at least a couple of days and very possibly for 5 days. If not able to eat in a couple of days, will probably need per antral nutrition. (2) Tachycardia: Code(s): R00.0 - Tachycardia, unspecified Status: Acute Assessment and Plan: With fever and tachycardia, concern for sepsis and intra-abdominal infection does exist. CT scans both yesterday and again today do not show an abscess or signs of bowel perforation. I suspect her ileus being treated will help this significantly. Broad-spectrum antibiotics have already been started. (3) Intra-abdominal bleeding: Code(s): R58 - Hemorrhage, not elsewhere classified Status: Acute Assessment and Plan: No evidence of recurrent bleeding. Received 2 units of packed cells on 11/27/2023. Anemic but does not appear to have any problems with hemorrhage. (4) Left ovarian cyst: Code(s): N83.202 - Unspecified ovarian cyst, left side Status: Chronic Assessment and Plan: Removed at surgery. May have been the cause of chronic left lower quadrant pain. Pathology shows it to be benign ovary and cyst. (5) Postoperative fever: Code(s): R50.82 - Postprocedural fever Status: Acute Assessment and Plan: Temp max 38.5 about 9:00 p.m. last night. Has been better since then. Patient been pretty much bed ridden, will start incentive spirometry aggressively. Suspect this is due to atelectasis. Subjective Subjective Date/Time Seen: 11/29/23 14:33 Post Op day: 3 Patient reports: still having pain (Pain is tolerable), flatus, no bowel movement, nausea, vomiting and fever Interval history: Has had some significant tachycardia. Cardiology has reviewed and it appears to be physiologic rather than a pathologic rhythm. Review of Systems Review of Systems: All systems reviewed & are unremarkable except as noted in HPI and below (HPI) Exam Const: General: cooperative, comfortable, no acute distress, alert, awake and overweight Orientation/consciousness: patient oriented x3 and No confusion Resp: Effort & Inspection: normal respiratory effort, no cough and not labored Auscultation: clear to auscultation bilaterally, no crackles, no rales and diminished lung sounds bilateral in the lower lung reynoso Cardio: Rate: tachycardic Rhythm: regular rhythm GI: Inspection: Abdominal wall edema, distended, incision (VAC on transverse incision only, midline incision looks good) and no visible herniation GI Palp: Yes Firmness to palpation present (GI) (Distended), Yes Tenderness to palpation present (GI) (Moderate appropriate tenderness without peritoneal signs), No Guarding due to palpation present (GI) and No Rebound tenderness present Auscultation: High-pitched bowel sounds present and Hypoactive bowel sounds present Neuro: General: patient oriented x3 and no focal motor deficits Extrem: General: no calf tenderness and no edema Psych: Affect: normal affect Insight: Good insight present (Psych) Judgement: Good judgement present (Psych) Objective Data Vital Signs Vital Signs: Vital Signs - 24 hr 11/28/23 14:42 11/28/23 17:04 11/28/23 17:59 Temperature 37.2 C 37.7 C H Pulse Rate 152 H 152 H 149 H Respiratory Rate 20 Blood Pressure 138/64 135/60 Pulse Oximetry 93 Oxygen Delivery Oxygen Flow Rate 11/28/23 16:00 11/28/23 16:00 11/28/23 18:00 Temperature Pulse Rate 153 H 148 H Respiratory Rate Blood Pressure Pulse Oxi
[2023-11-29] MEDS: MORPHINE SULFATE (*CRX) 4 MG/ML INJ IV PUSH (17:19)
--- NOTE | 2023-11-29 19:00 | PM.IMPN ---
Progress Note: A&P Assessment and Plan (1) Protein-calorie malnutrition, moderate: Code(s): E44.0 - Moderate protein-calorie malnutrition Status: Acute (2) Postoperative fever: Code(s): R50.82 - Postprocedural fever Status: Acute (3) Sepsis: Code(s): A41.9 - Sepsis, unspecified organism Status: Acute (4) Postoperative ileus: Code(s): K91.89 - Other postprocedural complications and disorders of digestive system; K56.7 - Ileus, unspecified Status: Acute (5) Tachycardia: Code(s): R00.0 - Tachycardia, unspecified Status: Acute (6) Left ovarian cyst: Code(s): N83.202 - Unspecified ovarian cyst, left side Status: Chronic (7) Intra-abdominal bleeding: Code(s): R58 - Hemorrhage, not elsewhere classified Status: Acute (8) UTI (urinary tract infection): Code(s): N39.0 - Urinary tract infection, site not specified Status: Acute Plan 43-year-old female with a past medical history anxiety and depression, diverticulitis, hernia repair with postop PE now off of anticoagulation, hypertension, hyperlipidemia, sleep apnea, obesity, seizures (absent type), presented on 11/25 for surgical management of a 5 cm left ovarian cyst that had been causing pelvic pain. Surgery initially attempted laparoscopically but became complicated by adhesions and intra-abdominal bleeding. Surgery converted to a low transverse incision. General surgeon join the case to help assist bleeding control urology as well and the Lr was replaced with rigid cystoscope bladder or ureteral injury identified. Postop day 1 for the salpingo-oophorectomy, repair vascular injury, intraoperative hemorrhage home was 9.9 in due to worsening tachycardia she was given 2 units PRBC. Postop day 2 wound VAC applied. Due to chills/rigors/worsening tachycardia antibiotics were escalated to meropenem and vancomycin. Cardiology consulted and felt tachycardia is a physiologic response. CTA chest abdomen pelvis did not demonstrate pulmonary embolism, pelvic free fluid and air collection seen along the left adnexal area and anterior aspect of the left psoas muscle with small fluid collections in the paracolic gutters. During this time she was transferred to ICU and found to also have developed postop ileus. On 11/28 NG tube placed for decompression evacuating large amount of dark green gastric content. On 11/29 she remains in sinus tachycardia in the 110s to 120s. This still appears to be due to postop anemia, ileus, pain. She no longer has fevers. She has had large volume output in the NG tube and absent bowel sounds. She remains NPO with ice chips and a PICC line has been placed for TPN. Continue to monitor hemoglobin as she is status post 2 units PRBCs for intraoperative bleeding. Leukocytosis persist so we will check procalcitonin in the morning and deescalate meropenem and vancomycin as appropriate. Blood cultures so far no growth to date and urine culture growing Enterococcus species sensitive to ampicillin vancomycin and nitrofurantoin. Her main complaint is the significant pain/scratching in her throat due to the NG to which causes her to be tearful. Not quite relieved with phenol throat spray. Have ordered a 1 time dose of lidocaine viscous solution. Assess for response. FEN: TPN. NPO except ice chips. GI prophylaxis: Protonix DVT prophylaxis: Lovenox 30 mg subQ b.i.d. Lines: PICC line, Lr catheter, wound VAC Code Status: Full code Dispo: Downgrade from ICU to IMU on 11/28. Continue telemetry. Stable in IMU. Subjective Date/time seen: 11/29/23 19:00 Interval history: No acute overnight events. She denies abdominal pain nausea vomiting, her main complaint is that the NG tube is scratching her throat causing significant pain in spite of the phenol throat spray being used twice already. Review of Systems Review of Systems: All systems reviewed & are unremarkable except as
[2023-11-29] MEDS: lamoTRIgine 25 MG TABLET 50 MG PO (21:21)
[2023-11-29] MEDS: lamoTRIgine 100 MG TABLET PO (21:21)
[2023-11-30] VITALS (14 sets, daily range): BP systolic 119–154; BP diastolic 58–83; PULSE 107–128; RESP 18–22; TEMP 36.7–37.7; O2SAT 86–98
[2023-11-30] MEDS: MEROPENEM 1 GM/NS 100 ML 1 GM/100 ML BAG IVPB ×3 (01:11→18:45)
[2023-11-30] MEDS: HYDROcodone/acetaminophen (*CRX) 10-325 MG TABLET 1 TAB PO (01:21)
[2023-11-30 04:10] LABS: Basophils Percent Auto 0.2 % (0.2-1.2); Eosinophils Percent Auto 0.1 % (0-4.4); Hematocrit 24.9 % (37.0-47.0); Hemoglobin 8.1 g/dL (12.0-15.0); Immature Granulocyte Percent A 0.6 % (0-0.5); Lymphocytes Percent Auto 4.5 % (18.3-44.2); Mean Corpuscular HGB Conc 32.5 g/dl (32-36); Mean Corpuscular Hemoglobin 30.2 pg (26-34); Mean Corpuscular Volume 92.9 fl (80-100); Mean Platelet Volume 9.4 fl (7.4-10.4); Monocytes Absolute Auto 0.8 K/mm3 (0.1-0.6); Monocytes Percent Auto 4.3 % (2.6-8.5); Neutrophils Absolute Auto 15.9 K/mm3 (1.3-6.7); Neutrophils Percent Auto 90.3 % (45.5-73.1); Platelet Count Result 283 k/mm3 (150-375); Red Blood Count 2.68 M/mm3 (4.2-5.4); White Blood Count 17.7 K/mm3 (4.5-10.0)
[2023-11-30 04:27] LABS: Alanine Aminotransferase 18 U/L (6-35); Albumin Level 3.3 g/dL (3.5-5.1); Alkaline Phosphatase 70 U/L (38-126); Anion Gap 5 mmol/L (4-12); Aspartate Amino Transferase 23 U/L (14-36); Bilirubin,Total 0.5 mg/dL (0.2-1.3); Blood Urea Nitrogen 15 mg/dL (7-17); Calcium 8.5 mg/dL (8.4-10.2); Carbon Dioxide 26 mmol/L (22-30); Chloride 108 mmol/L (98-107); Estimated CRCL calculation 113 ml/min; Estimated Glomerular Filt Rate > 60; Glucose 129 mg/dL (65-110); Magnesium 2.3 mg/dL (1.6-2.3); Phosphorus 3.4 mg/dL (2.5-4.5); Potassium 3.6 mmol/L (3.4-5.0); Sodium 139 mmol/L (137-145)
[2023-11-30 04:31] LABS: Vancomycin Trough 6.7 ug/mL (10.0-20.0)
[2023-11-30] MEDS: VANCOMYCIN 1,750 MG/NS 500 ML 1,750 MG/500 ML BAG 250 MG IVPB ×3 (05:34→22:14)
[2023-11-30] MEDS: LACTATED RINGERS 1,000 ML 100 ML IV CONT (07:34)
--- NOTE | 2023-11-30 09:30 | PM.GYNPNOP ---
JUNIOR BUSINESS ANALYST - A/P Assessment and plan (1) Postoperative fever: Code(s): R50.82 - Postprocedural fever Status: Acute (2) Postoperative ileus: Code(s): K91.89 - Other postprocedural complications and disorders of digestive system; K56.7 - Ileus, unspecified Status: Acute (3) Encounter for postoperative care: Code(s): Z48.89 - Encounter for other specified surgical aftercare Status: Acute Plan Resolution of postop fever, NG tube placed for ileus, to have PICC line placed for TPN, Wound care to resume care tomorrow. DVT prophylaxis, PE ruled out yesterday. Intra-abdominal abscess ruled out yesterday. Continuing broad-spectrum antibiotics for fever. Postoperative Procedures: Procedures Operation Date: 11/26/23 12:30 Actual Procedure Side Surgeon p Open Left Salpingo-Oophorectomy, Repair of arteries and vein for intraoperative hemorrhage, extensive adhesiolysis Left Clyde Lopez MD Time Spent With Patient Time: Total time spent is greater than 50% in coordination of care (as documented) at patient's floor/unit and/or counseling patient: Time with patient: less than 15 minutes JUNIOR BUSINESS ANALYST- PN:Subj Post-Op Subjective Date/time seen: 11/30/23 09:30 NG tube placed, no flatus today, patient reports mild abdominal pain, to have PICC line placed. Denies any fever or chills. Denies nausea. Epigastric and chest discomfort from tube. Exam Const: General: healthy appearing, comfortable and no acute distress Resp: Auscultation: clear to auscultation bilaterally, no rales, no rhonchi and no wheezes Cardio: Rate: regular rate Heart sounds: no click, no murmurs and no rubs GI: Inspection: non-distended Auscultation: Hypoactive bowel sounds present Extrem: General: normal to inspection, no pedal edema and no calf tenderness JUNIOR BUSINESS ANALYST - PN: Obj Data Vital Signs Vital Signs: Vital Signs - 24 hr 11/29/23 10:00 11/29/23 12:00 11/29/23 10:00 Temperature Pulse Rate 128 H 121 H 128 H Respiratory Rate 23 H Blood Pressure 126/80 Pulse Oximetry 93 Oxygen Delivery Oxygen Flow Rate 11/29/23 12:00 11/29/23 12:00 11/29/23 14:00 Temperature 98.0 F Pulse Rate 121 H 121 H 125 H Respiratory Rate 26 H 26 H Blood Pressure 143/86 H Pulse Oximetry 93 93 Oxygen Delivery Nasal Cannula Oxygen Flow Rate 2 11/29/23 16:00 11/29/23 16:00 11/29/23 16:00 Temperature 98.7 F Pulse Rate 122 H 122 H 122 H Respiratory Rate 22 H 22 H Blood Pressure 127/71 Pulse Oximetry 93 93 Oxygen Delivery Nasal Cannula Oxygen Flow Rate 2 11/29/23 18:00 11/29/23 20:00 11/29/23 22:00 Temperature Pulse Rate 119 H 121 H 118 H Respiratory Rate Blood Pressure Pulse Oximetry Oxygen Delivery Oxygen Flow Rate 11/30/23 00:00 11/30/23 02:00 11/29/23 20:00 Temperature Pulse Rate 114 H 112 H Respiratory Rate Blood Pressure Pulse Oximetry Oxygen Delivery Room Air Oxygen Flow Rate 11/30/23 00:00 11/30/23 04:00 11/29/23 20:00 Temperature 97.1 F L Pulse Rate 121 H Respiratory Rate 20 Blood Pressure Pulse Oximetry 98 94 Oxygen Delivery Room Air Nasal Cannula Oxygen Flow Rate 2 11/30/23 00:00 11/29/23 21:00 11/30/23 04:00 Temperature 98.1 F Pulse Rate 114 H 110 H Respiratory Rate 22 H Blood Pressure 133/69 123/73 Pulse Oximetry 95 Oxygen Delivery Oxygen Flow Rate 11/30/23 06:00 11/30/23 04:00 11/30/23 08:00 Temperature 98.3 F 98.6 F Pulse Rate 107 H 110 H 116 H Respiratory Rate 21 H 22 H Blood Pressure 119/58 L 134/83 Pulse Oximetry 92 92 Oxygen Delivery Oxygen Flow Rate Intake/Output Intake/Output: Intake & Output 11/27/23 11/28/23 11/29/23 11/30/23 23:59 23:59 23:59 23:59 Intake Total 2910 3040 4498.3 1600 Output Total 3025 1650 5550 1200 Balance -115 1390 -1051.7 400 Meds/Results Medications: Active Medications Generic Name Dose Route Start Last Admin Trade N
[2023-11-30] MEDS: ENOXAPARIN 30 MG/0.3 ML SYRINGE SUB-Q ×2 (09:34→22:00)
[2023-11-30] MEDS: PANTOPRAZOLE SODIUM IV 40 MG VIAL IV PUSH ×2 (09:35→22:00)
[2023-11-30] MEDS: MULTIVITAMINS THERAPEUTIC TAB (*BKC) 1 TABLET PO (09:39)
[2023-11-30] MEDS: SIMETHICONE 80 MG TAB.CHEW PO ×2 (09:40→16:35)
[2023-11-30] MEDS: PHENOL/SOD PHENO SPRAY CHERRY (*BKC) 1 SPRAY MUCOUS MEM (10:18)
--- NOTE | 2023-11-30 10:22 | PM.PNGS ---
Progress Note: A&P Assessment and Plan (1) Postoperative fever: Code(s): R50.82 - Postprocedural fever Status: Acute Assessment and Plan: No fever yesterday at all. (2) Postoperative ileus: Code(s): K91.89 - Other postprocedural complications and disorders of digestive system; K56.7 - Ileus, unspecified Status: Acute Assessment and Plan: Done 100 cc out NG tube yesterday, 700 out so far since midnight. No bowel sounds noted. Continue NG tube and NPO except ice chips. (3) Tachycardia: Code(s): R00.0 - Tachycardia, unspecified Status: Acute Assessment and Plan: Response to surgery postop pain and anemia. (4) Intra-abdominal bleeding: Code(s): R58 - Hemorrhage, not elsewhere classified Status: Acute Assessment and Plan: Following low H&H (5) Left ovarian cyst: Code(s): N83.202 - Unspecified ovarian cyst, left side Status: Chronic Assessment and Plan: Removed at surgery. Ovary and cyst benign. (6) Protein-calorie malnutrition, moderate: Code(s): E44.0 - Moderate protein-calorie malnutrition Status: Acute Assessment and Plan: Suspect patient will be unable to eat for a few more days. Will have PICC line placed and start TPN. Subjective Subjective Date/Time Seen: 11/30/23 10:22 Patient reports: no new complaints (NG tube is biggest complaint), pain is less, no flatus, no bowel movement and afebrile Exam Const: General: healthy appearing, no acute distress, alert, awake and uncomfortable Nutritional Appearance: overweight Orientation/consciousness: patient oriented x3 Resp: Effort & Inspection: normal respiratory effort Cardio: Rate: tachycardic GI: Inspection: incision (Dressing and wound VAC dry and intact) and obesity GI Palp: Yes Soft to palpation and Yes Tenderness to palpation present (GI) Auscultation: absent bowel sounds Objective Data Vital Signs Vital Signs: Vital Signs - 24 hr 11/29/23 12:00 11/29/23 12:00 11/29/23 12:00 Temperature 36.7 C Pulse Rate 121 H 121 H 121 H Respiratory Rate 26 H 26 H Blood Pressure 143/86 H Pulse Oximetry 93 93 Oxygen Delivery Nasal Cannula Oxygen Flow Rate 2 11/29/23 14:00 11/29/23 16:00 11/29/23 16:00 Temperature Pulse Rate 125 H 122 H 122 H Respiratory Rate 22 H Blood Pressure Pulse Oximetry 93 Oxygen Delivery Nasal Cannula Oxygen Flow Rate 2 11/29/23 16:00 11/29/23 18:00 11/29/23 20:00 Temperature 37.1 C Pulse Rate 122 H 119 H 121 H Respiratory Rate 22 H Blood Pressure 127/71 Pulse Oximetry 93 Oxygen Delivery Oxygen Flow Rate 11/29/23 22:00 11/30/23 00:00 11/30/23 02:00 Temperature Pulse Rate 118 H 114 H 112 H Respiratory Rate Blood Pressure Pulse Oximetry Oxygen Delivery Oxygen Flow Rate 11/29/23 20:00 11/30/23 00:00 11/30/23 04:00 Temperature Pulse Rate Respiratory Rate Blood Pressure Pulse Oximetry 98 Oxygen Delivery Room Air Room Air Nasal Cannula Oxygen Flow Rate 2 11/29/23 20:00 11/30/23 00:00 11/29/23 21:00 Temperature 36.2 C L 36.7 C Pulse Rate 121 H 114 H Respiratory Rate 20 22 H Blood Pressure 133/69 123/73 Pulse Oximetry 94 95 Oxygen Delivery Oxygen Flow Rate 11/30/23 04:00 11/30/23 06:00 11/30/23 04:00 Temperature 36.8 C Pulse Rate 110 H 107 H 110 H Respiratory Rate 21 H Blood Pressure 119/58 L Pulse Oximetry 92 Oxygen Delivery Oxygen Flow Rate 11/30/23 08:00 Temperature 37.0 C Pulse Rate 116 H Respiratory Rate 22 H Blood Pressure 134/83 Pulse Oximetry 92 Oxygen Delivery Oxygen Flow Rate Intake/Output Intake/Output: Intake & Output 11/27/23 11/28/23 11/29/23 11/30/23 23:59 23:59 23:59 23:59 Intake Total 2910 3040 4498.3 1600 Output Total 3025 1650 5550 1200 Balance -115 1390 -1051.7 400 Meds/Results Medications: Active Medications Generic Name Dose Rou
[2023-11-30 10:54] LABS: Basophils Percent Auto 0.2 % (0.2-1.2); Eosinophils Percent Auto 0.2 % (0-4.4); Hematocrit 24.8 % (37.0-47.0); Immature Granulocyte Absolute 0.12 K/mm3 (0.00-0.031); Immature Granulocyte Percent A 0.7 % (0-0.5); Lymphocytes Absolute Auto 1.01 K/mm3 (0.9-3.2); Lymphocytes Percent Auto 5.7 % (18.3-44.2); Mean Corpuscular HGB Conc 32.3 g/dl (32-36); Mean Corpuscular Hemoglobin 30.3 pg (26-34); Mean Corpuscular Volume 93.9 fl (80-100); Mean Platelet Volume 9.1 fl (7.4-10.4); Monocytes Absolute Auto 0.7 K/mm3 (0.1-0.6); Monocytes Percent Auto 3.8 % (2.6-8.5); Neutrophils Absolute Auto 15.7 K/mm3 (1.3-6.7); Neutrophils Percent Auto 89.4 % (45.5-73.1); Nucleated Red Blood Cells Perc 0.1 % (0.0-0.2); Platelet Count Result 296 k/mm3 (150-375); Red Blood Count 2.64 M/mm3 (4.2-5.4); Red Cell Distribution Width 13.9 % (11.5-14.5); White Blood Count 17.6 K/mm3 (4.5-10.0)
[2023-11-30 11:05] LABS: Alanine Aminotransferase 19 U/L (6-35); Albumin Level 3.4 g/dL (3.5-5.1); Alkaline Phosphatase 78 U/L (38-126); Anion Gap 7 mmol/L (4-12); Aspartate Amino Transferase 23 U/L (14-36); Bilirubin,Total 0.5 mg/dL (0.2-1.3); Blood Urea Nitrogen 17 mg/dL (7-17); Calcium 8.4 mg/dL (8.4-10.2); Carbon Dioxide 26 mmol/L (22-30); Chloride 107 mmol/L (98-107); Estimated CRCL calculation 131 ml/min; Estimated Glomerular Filt Rate > 60; Glucose 116 mg/dL (65-110); Magnesium 2.3 mg/dL (1.6-2.3); Partial Thromboplastin Time 33.3 Seconds (22.3-36.8); Potassium 3.5 mmol/L (3.4-5.0); Sodium 140 mmol/L (137-145)
[2023-11-30 11:12] LABS: Transferrin 133 mg/dL (206-381)
[2023-11-30] MEDS: ONDANSETRON INJ 4 MG/2 ML VIAL IV PUSH (12:49)
[2023-11-30] MEDS: LIDOCAINE HCL 1% PF INJ 5 ML VIAL INFILTRATE (12:53)
[2023-11-30 12:55] LABS: Glucose Point of Care 100 mg/dl (65-105)
--- NOTE | 2023-11-30 13:35 | PC.NURSE ---
This patient, Devi Chow, was transferred to [facility] on 11/30/23 at 1318 via bed with RN and CSTx2 at bedside. Personal belongings sent with patient. Report given to STEVE Lacey. Appropriate documentation sent with patient.
[2023-11-30] MEDS: AMINO ACIDS 5%/D15W/E-LYTES/CA 2,000 ML with MULTIVITAMINS-12 INJ VIAL 1 2.5 ML, MULTIV... 40 ML IV CONT (16:21)
[2023-11-30] MEDS: FAT EMULSIONS IV 20% 250 ML 20.83 ML IVPB (16:35)
[2023-11-30] MEDS: lamoTRIgine 100 MG TABLET PO (22:12)
[2023-11-30] MEDS: lamoTRIgine 25 MG TABLET 50 MG PO (22:14)
[2023-11-30 23:34] LABS: Glucose Point of Care 124 mg/dl (65-105)
[2023-11-30 23:55] LABS: Glucose Point of Care 142 mg/dl (65-105)
[2023-12-01] VITALS (17 sets, daily range): BP systolic 134–153; BP diastolic 67–79; PULSE 106–120; RESP 18–22; TEMP 36.2–36.7; O2SAT 93–100; BMI 36.4
[2023-12-01] MEDS: MEROPENEM 1 GM/NS 100 ML 1 GM/100 ML BAG IVPB (02:54)
[2023-12-01] MEDS: HYDROcodone/acetaminophen (*CRX) 10-325 MG TABLET 1 TAB PO ×3 (04:47→21:26)
[2023-12-01] MEDS: CENTRAL LINE FLUSH 10 ML IV PUSH ×2 (04:48→14:09)
[2023-12-01] MEDS: CENTRAL LINE FLUSH 20 ML IV PUSH ×2 (04:49→06:13)
[2023-12-01 04:58] LABS: Basophils Percent Auto 0.2 % (0.2-1.2); Eosinophils Absolute Auto 0.2 K/mm3 (0-0.3); Eosinophils Percent Auto 1.6 % (0-4.4); Hematocrit 23.3 % (37.0-47.0); Hemoglobin 8.2 g/dL (12.0-15.0); Immature Granulocyte Absolute 0.15 K/mm3 (0.00-0.031); Immature Granulocyte Percent A 1.1 % (0-0.5); Lymphocytes Absolute Auto 0.82 K/mm3 (0.9-3.2); Lymphocytes Percent Auto 6.1 % (18.3-44.2); Mean Corpuscular HGB Conc 35.2 g/dl (32-36); Mean Corpuscular Hemoglobin 34.2 pg (26-34); Mean Corpuscular Volume 97.1 fl (80-100); Mean Platelet Volume 9.6 fl (7.4-10.4); Monocytes Absolute Auto 0.5 K/mm3 (0.1-0.6); Monocytes Percent Auto 3.8 % (2.6-8.5); Neutrophils Absolute Auto 11.7 K/mm3 (1.3-6.7); Neutrophils Percent Auto 87.2 % (45.5-73.1); Nucleated Red Blood Cells Perc 0.3 % (0.0-0.2); Platelet Count Result 299 k/mm3 (150-375); Red Cell Distribution Width 14.2 % (11.5-14.5); White Blood Count 13.4 K/mm3 (4.5-10.0)
[2023-12-01 05:02] LABS: INR 1.2; Prothrombin Time 15.6 Seconds (11.1-14.7)
[2023-12-01 05:12] LABS: Vancomycin Trough 13.1 ug/mL (10.0-20.0)
[2023-12-01 05:25] LABS: Procalcitonin 0.9 ng/mL
[2023-12-01 05:27] LABS: Glucose Point of Care 127 mg/dl (65-105)
[2023-12-01] MEDS: VANCOMYCIN 2,000 MG/NS 500 ML 2,000 MG/500 ML BAG 250 MG IVPB ×2 (06:12→14:09)
[2023-12-01 07:03] LABS: Alanine Aminotransferase 16 U/L (6-35); Alkaline Phosphatase 69 U/L (38-126); Anion Gap 3 mmol/L (4-12); Aspartate Amino Transferase 19 U/L (14-36); Bilirubin,Total 0.4 mg/dL (0.2-1.3); Blood Urea Nitrogen 16 mg/dL (7-17); Carbon Dioxide 28 mmol/L (22-30); Chloride 108 mmol/L (98-107); Estimated CRCL calculation 131 ml/min; Estimated Glomerular Filt Rate > 60; Glucose 122 mg/dL (65-110); Magnesium 2.1 mg/dL (1.6-2.3); Phosphorus 3.1 mg/dL (2.5-4.5); Potassium 3.3 mmol/L (3.4-5.0); Sodium 139 mmol/L (137-145); Transferrin 124 mg/dL (206-381)
--- NOTE | 2023-12-01 08:26 | PM.IMPN ---
Progress Note: A&P Assessment and Plan (1) Postoperative fever: Code(s): R50.82 - Postprocedural fever Status: Acute Assessment and Plan: No fever yesterday at all. (2) Postoperative ileus: Code(s): K91.89 - Other postprocedural complications and disorders of digestive system; K56.7 - Ileus, unspecified Status: Acute Assessment and Plan: Done 100 cc out NG tube yesterday, 700 out so far since midnight. No bowel sounds noted. Continue NG tube and NPO except ice chips. (3) Tachycardia: Code(s): R00.0 - Tachycardia, unspecified Status: Acute Assessment and Plan: Response to surgery postop pain and anemia. (4) Intra-abdominal bleeding: Code(s): R58 - Hemorrhage, not elsewhere classified Status: Acute Assessment and Plan: Following low H&H (5) Left ovarian cyst: Code(s): N83.202 - Unspecified ovarian cyst, left side Status: Chronic Assessment and Plan: Removed at surgery. Ovary and cyst benign. (6) Protein-calorie malnutrition, moderate: Code(s): E44.0 - Moderate protein-calorie malnutrition Status: Acute Assessment and Plan: Suspect patient will be unable to eat for a few more days. Will have PICC line placed and start TPN. (7) UTI (urinary tract infection): Code(s): N39.0 - Urinary tract infection, site not specified Status: Acute (8) Sepsis: Code(s): A41.9 - Sepsis, unspecified organism Status: Acute (9) Hypoxia: Code(s): R09.02 - Hypoxemia Status: Acute Plan 43-year-old female with a past medical history anxiety and depression, diverticulitis, hernia repair with postop PE now off of anticoagulation, hypertension, hyperlipidemia, sleep apnea, obesity, seizures (absent type), presented on 11/25 for surgical management of a 5 cm left ovarian cyst that had been causing pelvic pain.? Surgery initially attempted laparoscopically but became complicated by adhesions and intra-abdominal bleeding.? Surgery converted to a low transverse incision.? General surgeon join the case to help assist bleeding control urology as well and the Lr was replaced with rigid cystoscope bladder or ureteral injury identified.? Postop day 1 for the salpingo-oophorectomy, repair vascular injury, intraoperative hemorrhage home was 9.9 in due to worsening tachycardia she was given 2 units PRBC.? Postop day 2 wound VAC applied.? Due to chills/rigors/worsening tachycardia antibiotics were escalated to meropenem and vancomycin.? Cardiology consulted and felt tachycardia is a physiologic response.? CTA chest abdomen pelvis did not demonstrate pulmonary embolism, pelvic free fluid and air collection seen along the left adnexal area and anterior aspect of the left psoas muscle with small fluid collections in the paracolic gutters.? During this time she was transferred to ICU and found to also have developed postop ileus.? On 11/28 NG tube placed for decompression evacuating large amount of dark green gastric content. On 11/29 she remains in sinus tachycardia in the 110s to 120s.? This still appears to be due to postop anemia, ileus, pain.? She no longer has fevers.? She has had large volume output in the NG tube and absent bowel sounds.? She remains NPO with ice chips and a PICC line has been placed for TPN.? Continue to monitor hemoglobin as she is status post 2 units PRBCs for intraoperative bleeding.? Leukocytosis persist so we will check procalcitonin in the morning and deescalate meropenem and vancomycin as appropriate.? Blood cultures so far no growth to date and urine culture growing Enterococcus species sensitive to ampicillin vancomycin and nitrofurantoin.? Her main complaint is the significant pain/scratching in her throat due to the NG to which causes her to be tearful.? Not quite relieved with phenol throat spray.? Have ordered a 1 time dose of lidocaine viscous solution.? Assess for response. Postoperative fever/sepsis
[2023-12-01] MEDS: MULTIVITAMINS THERAPEUTIC TAB (*BKC) 1 TABLET PO (09:31)
[2023-12-01] MEDS: ENOXAPARIN 30 MG/0.3 ML SYRINGE SUB-Q ×2 (09:31→21:28)
[2023-12-01] MEDS: SIMETHICONE 80 MG TAB.CHEW PO ×3 (09:31→18:52)
[2023-12-01] MEDS: PANTOPRAZOLE SODIUM IV 40 MG VIAL IV PUSH (09:31)
[2023-12-01] MEDS: KCL 20 MEQ/SW 100 ML 100 ML 50 MEQ IVPB (10:31)
[2023-12-01 10:43] LABS: Triglycerides 170 mg/dL (<150)
[2023-12-01 11:47] LABS: Glucose Point of Care 123 mg/dl (65-105)
--- NOTE | 2023-12-01 16:50 | PM.PNGS ---
Progress Note: A&P Assessment and Plan (1) Postoperative fever: Code(s): R50.82 - Postprocedural fever Status: Acute Assessment and Plan: Afebrile since 11/28. Midline incision healing well. Will plan to look at the horizontal suprapubic incision tomorrow. No drainage coming from the wound vac. (2) Postoperative ileus: Code(s): K91.89 - Other postprocedural complications and disorders of digestive system; K56.7 - Ileus, unspecified Status: Acute Assessment and Plan: NG with 400 cc out overnight. Still awaiting return of bowel function. Still no bowel sounds. Continue NG tube, bowel rest, and TPN. (3) Tachycardia: Code(s): R00.0 - Tachycardia, unspecified Status: Acute Assessment and Plan: Improved since yesterday. Likely related to anemia and postop pain. (4) Intra-abdominal bleeding: Code(s): R58 - Hemorrhage, not elsewhere classified Status: Acute Assessment and Plan: Trending labs. Stable today at 8.2. Continue to follow. (5) Left ovarian cyst: Code(s): N83.202 - Unspecified ovarian cyst, left side Status: Chronic Assessment and Plan: Removed at surgery. Ovary and cyst benign. (6) Protein-calorie malnutrition, moderate: Code(s): E44.0 - Moderate protein-calorie malnutrition Status: Acute Assessment and Plan: Continue TPN, bowel rest, and NG tube. Dietitian recommendations noted. Plan I have discussed the patient's case and plan of care with Dr. Ingram. Subjective Subjective Date/Time Seen: 12/01/23 16:50 Post Op day: 5 Patient reports: no new complaints, flatus, no bowel movement and afebrile (since 11/28 with a low grade temp 99.8F last night around 1999, afebrile this am) Interval history: Patient doing well. She has not been up to the chair or out of bed since Friday. She is anxious to move. She reports flatus today but no BM. She denies any abdominal pain, and is only complaining about the discomfort of the NG tube. No nausea. She has a Prevena dressing over her Pfannenstiel incision with wound vac attached, dry dressing over midline incision. Exam Const: General: comfortable, no acute distress and awake GI: Inspection: distended, incision (Dressing and wound VAC dry and intact) and obesity GI Palp: Yes Soft to palpation, Yes Tenderness to palpation present (GI) (expected incisional tenderness), No Guarding due to palpation present (GI) and No Rebound tenderness present Auscultation: absent bowel sounds Other: Midline incision with no erythema or drainage. Wound vac dressing in place over horizontal suprapubic incision. Objective Data Vital Signs Vital Signs: Vital Signs - 24 hr 11/30/23 18:00 11/30/23 20:00 11/30/23 23:48 Temperature 99.8 F H 98.2 F Pulse Rate 124 H 128 H 120 H Respiratory Rate 20 18 Blood Pressure 141/78 H 152/80 H Pulse Oximetry 90 93 Oxygen Delivery Oxygen Flow Rate 11/30/23 20:00 12/01/23 00:00 11/30/23 20:00 Temperature Pulse Rate 128 H 120 H 127 H Respiratory Rate 20 18 Blood Pressure Pulse Oximetry 90 93 Oxygen Delivery Room Air Nasal Cannula Oxygen Flow Rate 2 11/30/23 22:00 12/01/23 00:00 12/01/23 02:00 Temperature Pulse Rate 126 H 115 H 115 H Respiratory Rate Blood Pressure Pulse Oximetry Oxygen Delivery Oxygen Flow Rate 12/01/23 04:57 12/01/23 04:00 11/30/23 20:45 Temperature 97.6 F Pulse Rate 116 H 116 H 127 H Respiratory Rate 22 H 22 H 22 H Blood Pressure 149/79 H Pulse Oximetry 96 96 86 L Oxygen Delivery Nasal Cannula Room Air Oxygen Flow Rate 2 11/30/23 20:45 12/01/23 04:00 12/01/23 06:00 Temperature Pulse Rate 121 H 114 H 112 H Respiratory Rate 20 Blood Pressure Pulse Oximetry 96 Oxygen Delivery Nasal Cannula Oxygen Flow Rate 2 12/01/23 07:42 12/01/23 11:38 12/01/23 08:00 Temperature 97.8 F 97.2 F L Pulse Rate 111 H 112 H Respiratory Rate 20 1
--- NOTE | 2023-12-01 17:02 | PM.GYNPNOP ---
SECURITY AND COMPLIANCE ANALYST - A/P Assessment and plan (1) Postoperative ileus: Code(s): K91.89 - Other postprocedural complications and disorders of digestive system; K56.7 - Ileus, unspecified Status: Acute (2) Encounter for postoperative care: Code(s): Z48.89 - Encounter for other specified surgical aftercare Status: Acute Plan 43-year-old female, postop day 5. Laparotomy, vascular injury, hemorrhage, complex abdominal surgical wound, seen by wound care today, seen by the Medicine Team, TPN started for ileus. Started yesterday. Resolution of postop fever, improved tachycardia. General surgery managing bowel function/NG tube/Diet decision making. await return of bowel function continue DVT prophylaxis Postoperative Procedures: Procedures Operation Date: 11/26/23 12:30 Actual Procedure Side Surgeon p Open Left Salpingo-Oophorectomy, Repair of arteries and vein for intraoperative hemorrhage, extensive adhesiolysis Left Clyde Lopez MD Time Spent With Patient Time: Total time spent is greater than 50% in coordination of care (as documented) at patient's floor/unit and/or counseling patient: Time with patient: less than 15 minutes SECURITY AND COMPLIANCE ANALYST- PN:Subj Post-Op Subjective Date/time seen: 12/01/23 17:02 NG-tube discomfort, reports flatus, denies nausea, would like to walk, denies any fevers or chills. Denies any chest pain shortness of breath. Interval history: No acute overnight events. The rest comfortably in bed with the head of the bed elevated. No binders in place. She denies any abdominal pain. She is passing flatus but no stool. She reports the viscous lidocaine did not help the scratchy/painful throat. Exam Const: General: healthy appearing, comfortable and no acute distress Resp: Auscultation: clear to auscultation bilaterally, no rales, no rhonchi and no wheezes Cardio: Rate: regular rate Heart sounds: no click, no murmurs and no rubs GI: Inspection: non-distended Auscultation: normal bowel sounds and Hypoactive bowel sounds present ( Occasional) Extrem: General: normal to inspection, no pedal edema and no calf tenderness SECURITY AND COMPLIANCE ANALYST - PN: Obj Data Vital Signs Vital Signs: Vital Signs - 24 hr 11/30/23 18:00 11/30/23 20:00 11/30/23 23:48 Temperature 99.8 F H 98.2 F Pulse Rate 124 H 128 H 120 H Respiratory Rate 20 18 Blood Pressure 141/78 H 152/80 H Pulse Oximetry 90 93 Oxygen Delivery Oxygen Flow Rate 11/30/23 20:00 12/01/23 00:00 11/30/23 20:00 Temperature Pulse Rate 128 H 120 H 127 H Respiratory Rate 20 18 Blood Pressure Pulse Oximetry 90 93 Oxygen Delivery Room Air Nasal Cannula Oxygen Flow Rate 2 11/30/23 22:00 12/01/23 00:00 12/01/23 02:00 Temperature Pulse Rate 126 H 115 H 115 H Respiratory Rate Blood Pressure Pulse Oximetry Oxygen Delivery Oxygen Flow Rate 12/01/23 04:57 12/01/23 04:00 11/30/23 20:45 Temperature 97.6 F Pulse Rate 116 H 116 H 127 H Respiratory Rate 22 H 22 H 22 H Blood Pressure 149/79 H Pulse Oximetry 96 96 86 L Oxygen Delivery Nasal Cannula Room Air Oxygen Flow Rate 2 11/30/23 20:45 12/01/23 04:00 12/01/23 06:00 Temperature Pulse Rate 121 H 114 H 112 H Respiratory Rate 20 Blood Pressure Pulse Oximetry 96 Oxygen Delivery Nasal Cannula Oxygen Flow Rate 2 12/01/23 07:42 12/01/23 11:38 12/01/23 08:00 Temperature 97.8 F 97.2 F L Pulse Rate 111 H 112 H Respiratory Rate 20 18 Blood Pressure 148/75 H 153/78 H Pulse Oximetry 98 97 Oxygen Delivery Room Air Oxygen Flow Rate 12/01/23 12:00 12/01/23 15:56 Temperature 98.1 F Pulse Rate 114 H Respiratory Rate 20 Blood Pressure 134/67 Pulse Oximetry 100 Oxygen Delivery Room Air Oxygen Flow Rate Intake/Output Intake/Output: Intake & Output 11/28/23 11/29/23 11/30/23 12/01/23 23:59 23:59 23:59 23:59 Intake Total 3040 4498.3 2360 1590 Output Total 1650 5550 1600 1700 Balance 1390 -1051.7 760 -110
[2023-12-01] MEDS: FAT EMULSIONS IV 20% 250 ML 20.83 ML IVPB (18:51)
[2023-12-01] MEDS: AMINO ACIDS 5%/D15W/E-LYTES/CA 2,000 ML with MULTIVITAMINS-12 INJ VIAL 1 2.5 ML, MULTIV... 40 ML IV CONT (18:51)
[2023-12-01 20:28] LABS: Glucose Point of Care 118 mg/dl (65-105)
[2023-12-01] MEDS: lamoTRIgine 25 MG TABLET 50 MG PO (21:28)
[2023-12-02] VITALS (15 sets, daily range): BP systolic 138–153; BP diastolic 72–91; PULSE 89–118; RESP 18–20; TEMP 35.8–36.6; O2SAT 98–100
[2023-12-02 00:54] LABS: Glucose Point of Care 110 mg/dl (65-105)
[2023-12-02] MEDS: VANCOMYCIN 2,000 MG/NS 500 ML 2,000 MG/500 ML BAG 250 MG IVPB ×3 (01:40→19:53)
[2023-12-02] MEDS: PANTOPRAZOLE SODIUM IV 40 MG VIAL IV PUSH ×2 (01:41→09:18)
[2023-12-02] MEDS: CENTRAL LINE FLUSH 10 ML IV PUSH ×4 (01:41→21:00)
[2023-12-02] MEDS: lamoTRIgine 100 MG TABLET PO ×2 (01:41→20:57)
[2023-12-02 05:26] LABS: Anion Gap -1 mmol/L (4-12); Blood Urea Nitrogen 12 mg/dL (7-17); Calcium 7.8 mg/dL (8.4-10.2); Carbon Dioxide 30 mmol/L (22-30); Chloride 105 mmol/L (98-107); Estimated CRCL calculation 155 ml/min; Estimated Glomerular Filt Rate > 60; Glucose 113 mg/dL (65-110); Phosphorus 3.5 mg/dL (2.5-4.5); Potassium 3.4 mmol/L (3.4-5.0); Sodium 134 mmol/L (137-145)
[2023-12-02 05:48] LABS: Vancomycin Trough 21.6 ug/mL (10.0-20.0)
[2023-12-02 05:58] LABS: Procalcitonin 0.5 ng/mL
[2023-12-02] MEDS: HYDROcodone/acetaminophen (*CRX) 10-325 MG TABLET 1 TAB PO (09:18)
[2023-12-02] MEDS: SIMETHICONE 80 MG TAB.CHEW PO ×3 (09:18→16:44)
[2023-12-02] MEDS: MULTIVITAMINS THERAPEUTIC TAB (*BKC) 1 TABLET PO (09:18)
[2023-12-02] MEDS: ENOXAPARIN 30 MG/0.3 ML SYRINGE SUB-Q ×2 (09:18→20:59)
--- NOTE | 2023-12-02 10:48 | PM.GYNPNOP ---
LANDSCAPE ENGINEER - A/P Assessment and plan (1) Postoperative ileus: Code(s): K91.89 - Other postprocedural complications and disorders of digestive system; K56.7 - Ileus, unspecified Status: Acute (2) Tachycardia: Code(s): R00.0 - Tachycardia, unspecified Status: Acute Plan continue observation of ileus, NG tube, possibly picking up bowel function, wound examined by Dr. Ingram, said to be healing well. TPN Postoperative Procedures: Procedures Operation Date: 11/26/23 12:30 Actual Procedure Side Surgeon p Open Left Salpingo-Oophorectomy, Repair of arteries and vein for intraoperative hemorrhage, extensive adhesiolysis Left Clyde Lopez MD Time Spent With Patient Time: Total time spent is greater than 50% in coordination of care (as documented) at patient's floor/unit and/or counseling patient: Time with patient: less than 15 minutes LANDSCAPE ENGINEER- PN:Subj Post-Op Subjective Date/time seen: 12/02/23 10:48 minimal abdominal pain, patient is passing gas. Feels she may have a bowel movement, No nausea. denies fevers or chills. Denies chest pain , shortness of breath. Interval history: No acute overnight events. The rest comfortably in bed with the head of the bed elevated. No binders in place. She denies any abdominal pain. She is passing flatus but no stool. She reports the viscous lidocaine did not help the scratchy/painful throat. Exam Const: General: cooperative, healthy appearing, comfortable and no acute distress Orientation/consciousness: oriented to person, oriented to place and oriented to time HENMT: Head: normal to inspection Ears: external ears normal Face/Nose/Sinus: Normal external nose present and normal facial exam Face and sinus: normal facial exam Eyes: General: appearance normal, both eyes and all related structures Neck: Neck: normal visual inspection, trachea midline and supple Resp: Auscultation: clear to auscultation bilaterally, no crackles, no rales, no rhonchi and no wheezes Cardio: Rate: regular rate Rhythm: regular rhythm Heart sounds: no click, no murmurs and no rubs GI: GI Palp: No abdominal tenderness, No Soft to palpation, No Tenderness to palpation present (GI) and No Palpable mass present Auscultation: normal bowel sounds Skin: General skin exam: normal color and no rashes or lesions noted Neuro: General: oriented to person, oriented to place and oriented to time Extrem: General: normal to inspection, no joint enlargement, no clubbing, cyanosis or edema, no pedal edema and no calf tenderness Psych: Appearance: grossly normal Mental Status: mental status grossly normal Speech and movement: Normal speech and movement present LANDSCAPE ENGINEER - PN: Obj Data Vital Signs Vital Signs: Vital Signs - 24 hr 12/01/23 11:38 12/01/23 12:00 12/01/23 15:56 Temperature 97.2 F L 98.1 F Pulse Rate 112 H 114 H Respiratory Rate 18 20 Blood Pressure 153/78 H 134/67 Pulse Oximetry 97 100 Oxygen Delivery Room Air 12/01/23 19:47 12/01/23 12:00 12/01/23 14:00 Temperature 97.6 F Pulse Rate 117 H 107 H 112 H Respiratory Rate 20 Blood Pressure 146/75 H Pulse Oximetry 98 Oxygen Delivery 12/01/23 16:00 12/01/23 18:00 12/01/23 16:00 Temperature Pulse Rate 108 H 114 H Respiratory Rate Blood Pressure Pulse Oximetry Oxygen Delivery Room Air 12/01/23 20:00 12/02/23 00:00 12/02/23 00:00 Temperature 97.6 F Pulse Rate 117 H 110 H 110 H Respiratory Rate 20 20 20 Blood Pressure 148/72 H Pulse Oximetry 98 100 100 Oxygen Delivery Room Air Room Air 12/01/23 20:00 12/01/23 22:00 12/02/23 00:00 Temperature Pulse Rate 114 H 117 H 110 H Respiratory Rate Blood Pressure Pulse Oximetry Oxygen Delivery 12/02/23 02:37 12/02/23 04:00 12/02/23 05:14 Temperature 97.7 F Pulse Rate 108 H 108 H 115 H Respiratory Rate 20 20 Blood Pressure 140/91 H Pulse Oximetry 100 98 Oxygen Delivery Room Air 12/02/23 0
--- NOTE | 2023-12-02 10:51 | PM.IMPN ---
Progress Note: A&P Assessment and Plan (1) Postoperative fever: Code(s): R50.82 - Postprocedural fever Status: Acute (2) Postoperative ileus: Code(s): K91.89 - Other postprocedural complications and disorders of digestive system; K56.7 - Ileus, unspecified Status: Acute (3) Tachycardia: Code(s): R00.0 - Tachycardia, unspecified Status: Acute (4) Intra-abdominal bleeding: Code(s): R58 - Hemorrhage, not elsewhere classified Status: Acute (5) Left ovarian cyst: Code(s): N83.202 - Unspecified ovarian cyst, left side Status: Chronic (6) Protein-calorie malnutrition, moderate: Code(s): E44.0 - Moderate protein-calorie malnutrition Status: Acute (7) UTI (urinary tract infection): Code(s): N39.0 - Urinary tract infection, site not specified Status: Acute (8) Sepsis: Code(s): A41.9 - Sepsis, unspecified organism Status: Acute (9) Hypoxia: Code(s): R09.02 - Hypoxemia Status: Acute Plan 43-year-old female with a past medical history anxiety and depression, diverticulitis, hernia repair with postop PE now off of anticoagulation, hypertension, hyperlipidemia, sleep apnea, obesity, seizures (absent type), presented on 11/25 for surgical management of a 5 cm left ovarian cyst that had been causing pelvic pain.? Surgery initially attempted laparoscopically but became complicated by adhesions and intra-abdominal bleeding.? Surgery converted to a low transverse incision.? General surgeon join the case to help assist bleeding control urology as well and the Lr was replaced with rigid cystoscope bladder or ureteral injury identified.? Postop day 1 for the salpingo-oophorectomy, repair vascular injury, intraoperative hemorrhage home was 9.9 in due to worsening tachycardia she was given 2 units PRBC.? Postop day 2 wound VAC applied.? Due to chills/rigors/worsening tachycardia antibiotics were escalated to meropenem and vancomycin.? Cardiology consulted and felt tachycardia is a physiologic response.? CTA chest abdomen pelvis did not demonstrate pulmonary embolism, pelvic free fluid and air collection seen along the left adnexal area and anterior aspect of the left psoas muscle with small fluid collections in the paracolic gutters.? During this time she was transferred to ICU and found to also have developed postop ileus.? On 11/28 NG tube placed for decompression evacuating large amount of dark green gastric content. On 11/29 she remains in sinus tachycardia in the 110s to 120s.? This still appears to be due to postop anemia, ileus, pain.? She no longer has fevers.? She has had large volume output in the NG tube and absent bowel sounds.? She remains NPO with ice chips and a PICC line has been placed for TPN.? Continue to monitor hemoglobin as she is status post 2 units PRBCs for intraoperative bleeding.? Leukocytosis persist so we will check procalcitonin in the morning and deescalate meropenem and vancomycin as appropriate.? Blood cultures so far no growth to date and urine culture growing Enterococcus species sensitive to ampicillin vancomycin and nitrofurantoin.? Her main complaint is the significant pain/scratching in her throat due to the NG to which causes her to be tearful.? Not quite relieved with phenol throat spray.? Have ordered a 1 time dose of lidocaine viscous solution.? Assess for response. Postoperative fever/sepsis -fever resolved. -leukocytosis coming down. Procalcitonin level low -follow-up blood cultures. So far no growth -on 12/01 on clear why cbc was not resulted. It was ordered and blood was drawn given the BMP resulted Hypoxia -likely due to bibasilar atelectasis. Continue to encourage incentive spirometer use. Wean O2 as tolerated. Goal O2 saturating greater than 92%. Sinus tachycardia -was up in the 150s postop. Now coming down to the 110s. Cardiology previously consulted, felt due to physiologic sinus tachycardia. -continu
--- NOTE | 2023-12-02 11:17 | PM.PNGS ---
Progress Note: A&P Assessment and Plan (1) Encounter for postoperative care: Code(s): Z48.89 - Encounter for other specified surgical aftercare Status: Acute Assessment and Plan: Making good progress but still no sign of bowel function. This is not unusual. Continue nasogastric tube to suction and TPN. Will discontinue Lr catheter and increase ambulation. Patient can get up to the commode and certainly walk with the nasogastric tube clamped. Wound continues to look good. (2) Postoperative fever: Code(s): R50.82 - Postprocedural fever Status: Resolved Assessment and Plan: Afebrile (3) Tachycardia: Code(s): R00.0 - Tachycardia, unspecified Status: Acute Assessment and Plan: Heart rate still 110-120. (4) Intra-abdominal bleeding: Code(s): R58 - Hemorrhage, not elsewhere classified Status: Acute Assessment and Plan: Anemic postop but anemia is stable. (5) Protein-calorie malnutrition, moderate: Code(s): E44.0 - Moderate protein-calorie malnutrition Status: Acute Assessment and Plan: Continue TPN while patient unable to eat. Subjective Subjective Date/Time Seen: 12/02/23 07:17 Post Op day: #6 Patient reports: no new complaints, feels better, pain is less, no flatus, no bowel movement and afebrile Interval history: Would like to be up walking in up in a chair more. Review of Systems Review of Systems: All systems reviewed & are unremarkable except as noted in HPI and below (HPI) Exam Const: General: cooperative, comfortable, no acute distress, alert, awake and overweight Orientation/consciousness: patient oriented x3 GI: Inspection: no abdominal wall ecchymosis, non-distended, incision (Midline incision dry and healing well) and obesity GI Palp: Yes Soft to palpation, Yes Tenderness to palpation present (GI) (Generalized incisional tenderness), No Guarding due to palpation present (GI) and No Rebound tenderness present Auscultation: absent bowel sounds Neuro: General: patient oriented x3 and no focal motor deficits Extrem: General: no calf tenderness and no edema Psych: Affect: normal affect Insight: Good insight present (Psych) Judgement: Good judgement present (Psych) Objective Data Vital Signs Vital Signs: Vital Signs - 24 hr 12/01/23 11:38 12/01/23 12:00 12/01/23 15:56 Temperature 36.2 C L 36.7 C Pulse Rate 112 H 114 H Respiratory Rate 18 20 Blood Pressure 153/78 H 134/67 Pulse Oximetry 97 100 Oxygen Delivery Room Air 12/01/23 19:47 12/01/23 12:00 12/01/23 14:00 Temperature 36.4 C Pulse Rate 117 H 107 H 112 H Respiratory Rate 20 Blood Pressure 146/75 H Pulse Oximetry 98 Oxygen Delivery 12/01/23 16:00 12/01/23 18:00 12/01/23 16:00 Temperature Pulse Rate 108 H 114 H Respiratory Rate Blood Pressure Pulse Oximetry Oxygen Delivery Room Air 12/01/23 20:00 12/02/23 00:00 12/02/23 00:00 Temperature 36.4 C Pulse Rate 117 H 110 H 110 H Respiratory Rate 20 20 20 Blood Pressure 148/72 H Pulse Oximetry 98 100 100 Oxygen Delivery Room Air Room Air 12/01/23 20:00 12/01/23 22:00 12/02/23 00:00 Temperature Pulse Rate 114 H 117 H 110 H Respiratory Rate Blood Pressure Pulse Oximetry Oxygen Delivery 12/02/23 02:37 12/02/23 04:00 12/02/23 05:14 Temperature 36.5 C Pulse Rate 108 H 108 H 115 H Respiratory Rate 20 20 Blood Pressure 140/91 H Pulse Oximetry 100 98 Oxygen Delivery Room Air 12/02/23 04:00 12/02/23 06:30 12/02/23 07:55 Temperature 36.5 C Pulse Rate 109 H 118 H 114 H Respiratory Rate 20 Blood Pressure 145/82 H Pulse Oximetry 98 Oxygen Delivery 12/02/23 10:00 Temperature Pulse Rate 114 H Respiratory Rate Blood Pressure Pulse Oximetry Oxygen Delivery Intake/Output Intake/Output: Intake & Output 11/29/23 11/30/23 12/01/23 12/02/23 23:59 23:59 23:59 23:59 Intake T
[2023-12-02 11:59] LABS: Glucose Point of Care 111 mg/dl (65-105)
[2023-12-02] MEDS: ACETAMINOPHEN 325 MG TABLET 650 MG PO (12:32)
--- NOTE | 2023-12-02 13:34 | PCNFU ---
Nutrition Follow-Up Complete: Inadequate po intake related to NPO diet orders as evidenced by need for alternative nutrition support Goal:Meet estimated needs, advance to PO intake Pt is meeting 70% of estimated needs via TPN Pt current nutrition is NPO, TPN Clinimix E 5/15 running at 40ml/hr with lipids. This is providing 1182kcals, 48g protein . Nutrition recommendation: continue with current plan of care Last recorded weight is 117.2 kg. Bowel Motility: No BM recorded at this time Labs Reviewed: NA:134, Cr:0.5, Glu:113 Meds Noted: insulin, reglan, protonix, zofran Skin: WNL Additional Notes: Pt continues on TPN, no BM at this time. TPN is meeting 70% of estimated needs. Agree with orders. Monitor TPN, labs, wt. Follow up every Friday and Friday.
[2023-12-02] MEDS: FAT EMULSIONS IV 20% 250 ML 20.83 ML IVPB (16:55)
[2023-12-02] MEDS: AMINO ACIDS 5%/D15W/E-LYTES/CA 2,000 ML with MULTIVITAMINS-12 INJ VIAL 1 2.5 ML, MULTIV... 40 ML IV CONT (16:55)
[2023-12-02 17:45] LABS: Glucose Point of Care 89 mg/dl (65-105)
[2023-12-02] MEDS: lamoTRIgine 25 MG TABLET 50 MG PO (20:57)
[2023-12-03] VITALS (21 sets, daily range): BP systolic 133–158; BP diastolic 56–82; PULSE 98–123; RESP 16–20; TEMP 36–37.7; O2SAT 95–99
[2023-12-03 00:27] LABS: Glucose Point of Care 122 mg/dl (65-105)
[2023-12-03] MEDS: VANCOMYCIN 2,000 MG/NS 500 ML 2,000 MG/500 ML BAG 250 MG IVPB ×3 (01:53→21:25)
[2023-12-03] MEDS: CENTRAL LINE FLUSH 10 ML IV PUSH ×3 (05:30→21:23)
[2023-12-03 05:48] LABS: Anion Gap 6 mmol/L (4-12); Blood Urea Nitrogen 10 mg/dL (7-17); Calcium 7.8 mg/dL (8.4-10.2); Carbon Dioxide 26 mmol/L (22-30); Chloride 104 mmol/L (98-107); Estimated CRCL calculation 135 ml/min; Estimated Glomerular Filt Rate > 60; Glucose 116 mg/dL (65-110); Phosphorus 4.2 mg/dL (2.5-4.5); Potassium 3.1 mmol/L (3.4-5.0); Sodium 136 mmol/L (137-145); Triglycerides 226 mg/dL (<150)
[2023-12-03 06:09] LABS: Vancomycin Trough 21.8 ug/mL (10.0-20.0)
--- NOTE | 2023-12-03 06:24 | PC.NURSE ---
1 liquid stool and one semi formed soft stool tonight.
[2023-12-03 08:15] LABS: Glucose Point of Care 125 mg/dl (65-105)
[2023-12-03] MEDS: SIMETHICONE 80 MG TAB.CHEW PO ×3 (08:49→17:12)
[2023-12-03] MEDS: ENOXAPARIN 30 MG/0.3 ML SYRINGE SUB-Q ×2 (08:49→21:22)
[2023-12-03] MEDS: PANTOPRAZOLE SODIUM IV 40 MG VIAL IV PUSH (08:49)
[2023-12-03] MEDS: MULTIVITAMINS THERAPEUTIC TAB (*BKC) 1 TABLET PO (08:49)
[2023-12-03 10:02] LABS: Basophils Absolute Auto 0.1 K/mm3 (0.0-0.1); Basophils Percent Auto 0.4 % (0.2-1.2); Eosinophils Absolute Auto 0.4 K/mm3 (0-0.3); Eosinophils Percent Auto 2.6 % (0-4.4); Hematocrit 22.9 % (37.0-47.0); Hemoglobin 7.4 g/dL (12.0-15.0); Immature Granulocyte Absolute 0.19 K/mm3 (0.00-0.031); Immature Granulocyte Percent A 1.4 % (0-0.5); Lymphocytes Absolute Auto 0.95 K/mm3 (0.9-3.2); Mean Corpuscular HGB Conc 32.3 g/dl (32-36); Mean Corpuscular Hemoglobin 30.3 pg (26-34); Mean Corpuscular Volume 93.9 fl (80-100); Mean Platelet Volume 9.6 fl (7.4-10.4); Monocytes Absolute Auto 0.4 K/mm3 (0.1-0.6); Monocytes Percent Auto 2.9 % (2.6-8.5); Neutrophils Absolute Auto 11.6 K/mm3 (1.3-6.7); Neutrophils Percent Auto 85.7 % (45.5-73.1); Nucleated Red Blood Cells Perc 0.1 % (0.0-0.2); Platelet Count Result 353 k/mm3 (150-375); Red Blood Count 2.44 M/mm3 (4.2-5.4); Red Cell Distribution Width 13.5 % (11.5-14.5); White Blood Count 13.5 K/mm3 (4.5-10.0)
--- NOTE | 2023-12-03 11:46 | PM.PNGS ---
Progress Note: A&P Assessment and Plan (1) Encounter for postoperative care: Code(s): Z48.89 - Encounter for other specified surgical aftercare Status: Acute Assessment and Plan: Bowel function has returned. Will remove her NG tube and start a clear liquid diet. Continue TPN for today. Increase activity and ambulation today. We will remove the wound VAC from the transverse abdominal incision today. Will start Xeroform and gauze dressing changes after wound VAC removed. (2) Tachycardia: Code(s): R00.0 - Tachycardia, unspecified Status: Acute Assessment and Plan: Heart rate still 110-120. (3) Intra-abdominal bleeding: Code(s): R58 - Hemorrhage, not elsewhere classified Status: Acute Assessment and Plan: Anemic postop but anemia is stable. (4) Protein-calorie malnutrition, moderate: Code(s): E44.0 - Moderate protein-calorie malnutrition Status: Acute Assessment and Plan: Continue TPN until tolerating a substantial diet Plan I have discussed the patient's case and plan of care with Dr. Ingram. Subjective Subjective Date/Time Seen: 12/03/23 11:46 Patient reports: no new complaints, feels better, flatus, bowel movement and afebrile Interval history: Patient's main complaint is her NG tube. She denies any abdominal pain. She has had multiple bowel movements and is passing flatus. She has tolerated activity with getting up to the chair and ambulating in the room. Exam Const: General: comfortable and no acute distress Nutritional Appearance: overweight Orientation/consciousness: patient oriented x3 GI: Inspection: non-distended, incision (Midline incision dry and healing well) and obesity GI Palp: Yes Soft to palpation, Yes Tenderness to palpation present (GI) and No Guarding due to palpation present (GI) Auscultation: normal bowel sounds Other: Midline incision with no erythema or drainage. Wound vac dressing in place over horizontal suprapubic incision and will be removed by wound care today Objective Data Vital Signs Vital Signs: Vital Signs - 24 hr 12/02/23 11:47 12/02/23 11:55 12/02/23 12:00 Temperature 96.5 F L Pulse Rate 105 H 115 H Respiratory Rate Blood Pressure 138/77 Pulse Oximetry 98 Oxygen Delivery Room Air Oxygen Flow Rate 12/02/23 12:00 12/02/23 14:00 12/02/23 16:00 Temperature Pulse Rate 106 H 89 Respiratory Rate Blood Pressure Pulse Oximetry 99 Oxygen Delivery Room Air Oxygen Flow Rate 12/02/23 16:00 12/02/23 16:00 12/02/23 18:00 Temperature 96.4 F L Pulse Rate 116 H 113 H Respiratory Rate 18 Blood Pressure 152/79 H Pulse Oximetry 98 99 Oxygen Delivery Room Air Oxygen Flow Rate 12/02/23 19:55 12/02/23 20:00 12/02/23 20:00 Temperature 97.9 F Pulse Rate 116 H 115 H 115 H Respiratory Rate 18 18 Blood Pressure 153/82 H Pulse Oximetry 98 98 Oxygen Delivery Room Air Oxygen Flow Rate 12/03/23 00:19 12/02/23 22:00 12/03/23 00:00 Temperature 97.6 F Pulse Rate 117 H 115 H 113 H Respiratory Rate 18 Blood Pressure 150/74 H Pulse Oximetry 95 Oxygen Delivery Oxygen Flow Rate 12/03/23 00:00 12/03/23 04:00 12/03/23 04:26 Temperature 97.9 F Pulse Rate 117 H 117 H 116 H Respiratory Rate 18 18 18 Blood Pressure 147/75 H Pulse Oximetry 95 95 98 Oxygen Delivery Nasal Cannula Nasal Cannula Oxygen Flow Rate 2 2 12/03/23 02:00 12/03/23 04:00 12/03/23 06:21 Temperature Pulse Rate 115 H 123 H 120 H Respiratory Rate Blood Pressure Pulse Oximetry Oxygen Delivery Oxygen Flow Rate 12/03/23 07:06 Temperature 96.8 F L Pulse Rate 118 H Respiratory Rate 20 Blood Pressure 151/71 H Pulse Oximetry 99 Oxygen Delivery Oxygen Flow Rate Intake/Output Intake/Output: Intake & Output 11/30/23 12/01/23 12/02/23 12/03/23 23:59 23:59 23:59 23:59 Intake Total 2735 3500 2332.7 1250 Output T
[2023-12-03 11:55] LABS: Glucose Point of Care 93 mg/dl (65-105)
[2023-12-03] MEDS: HYDROcodone/acetaminophen (*CRX) 10-325 MG TABLET 1 TAB PO ×2 (14:38→23:48)
[2023-12-03] MEDS: KCL 20 MEQ/SW 100 ML 100 ML 50 MEQ IVPB (16:01)
--- NOTE | 2023-12-03 17:01 | PM.IMPN ---
Progress Note: A&P Assessment and Plan (1) Postoperative fever: Code(s): R50.82 - Postprocedural fever Status: Resolved (2) Postoperative ileus: Code(s): K91.89 - Other postprocedural complications and disorders of digestive system; K56.7 - Ileus, unspecified Status: Acute (3) Tachycardia: Code(s): R00.0 - Tachycardia, unspecified Status: Acute (4) Intra-abdominal bleeding: Code(s): R58 - Hemorrhage, not elsewhere classified Status: Acute (5) Left ovarian cyst: Code(s): N83.202 - Unspecified ovarian cyst, left side Status: Chronic (6) Protein-calorie malnutrition, moderate: Code(s): E44.0 - Moderate protein-calorie malnutrition Status: Acute (7) UTI (urinary tract infection): Code(s): N39.0 - Urinary tract infection, site not specified Status: Acute (8) Sepsis: Code(s): A41.9 - Sepsis, unspecified organism Status: Acute (9) Hypoxia: Code(s): R09.02 - Hypoxemia Status: Acute Plan 43-year-old female with a past medical history anxiety and depression, diverticulitis, hernia repair with postop PE now off of anticoagulation, hypertension, hyperlipidemia, sleep apnea, obesity, seizures (absent type), presented on 11/25 for surgical management of a 5 cm left ovarian cyst that had been causing pelvic pain.? Surgery initially attempted laparoscopically but became complicated by adhesions and intra-abdominal bleeding.? Surgery converted to a low transverse incision.? General surgeon join the case to help assist bleeding control urology as well and the Lr was replaced with rigid cystoscope bladder or ureteral injury identified.? Postop day 1 for the salpingo-oophorectomy, repair vascular injury, intraoperative hemorrhage home was 9.9 in due to worsening tachycardia she was given 2 units PRBC.? Postop day 2 wound VAC applied.? Due to chills/rigors/worsening tachycardia antibiotics were escalated to meropenem and vancomycin.? Cardiology consulted and felt tachycardia is a physiologic response.? CTA chest abdomen pelvis did not demonstrate pulmonary embolism, pelvic free fluid and air collection seen along the left adnexal area and anterior aspect of the left psoas muscle with small fluid collections in the paracolic gutters.? During this time she was transferred to ICU and found to also have developed postop ileus.? On 11/28 NG tube placed for decompression evacuating large amount of dark green gastric content. On 11/29 she remains in sinus tachycardia in the 110s to 120s.? This still appears to be due to postop anemia, ileus, pain.? She no longer has fevers.? She has had large volume output in the NG tube and absent bowel sounds.? She remains NPO with ice chips and a PICC line has been placed for TPN.? Continue to monitor hemoglobin as she is status post 2 units PRBCs for intraoperative bleeding.? Leukocytosis persist so we will check procalcitonin in the morning and deescalate meropenem and vancomycin as appropriate.? Blood cultures so far no growth to date and urine culture growing Enterococcus species sensitive to ampicillin vancomycin and nitrofurantoin.? Her main complaint is the significant pain/scratching in her throat due to the NG to which causes her to be tearful.? Not quite relieved with phenol throat spray.? Have ordered a 1 time dose of lidocaine viscous solution.? Assess for response. 513 update: NG tube being removed by General surgery. Patient is advised to ambulate and start a clear liquid diet. Blood pressure is slowly creeping up so we will restart her amlodipine. Continue to trend leukocytosis she is currently on vancomycin. Postoperative fever/sepsis -fever resolved. -leukocytosis coming down. Procalcitonin level low -follow-up blood cultures. So far no growth -on 12/01 on clear why cbc was not resulted. It was ordered and blood was drawn given the BMP resulted Hypoxia -likely due to bibasilar atelectasis. Continue to
[2023-12-03] MEDS: AMINO ACIDS 5%/D15W/E-LYTES/CA 2,000 ML with MULTIVITAMINS-12 INJ VIAL 1 2.5 ML, MULTIV... 40 ML IV CONT (17:11)
[2023-12-03] MEDS: FAT EMULSIONS IV 20% 250 ML 20.83 ML IVPB (17:12)
[2023-12-03 18:32] LABS: Glucose Point of Care 101 mg/dl (65-105)
[2023-12-03] MEDS: ACETAMINOPHEN 325 MG TABLET 650 MG PO (18:38)
[2023-12-03 19:11] LABS: Vancomycin Trough 10.7 ug/mL (10.0-20.0)
[2023-12-03] MEDS: lamoTRIgine 25 MG TABLET 50 MG PO (21:20)
[2023-12-03] MEDS: amLODIPine BESYLATE 5 MG TABLET PO (21:21)
[2023-12-03] MEDS: lamoTRIgine 100 MG TABLET PO (21:21)
[2023-12-04] VITALS (15 sets, daily range): BP systolic 116–156; BP diastolic 50–74; PULSE 111–126; RESP 16–20; TEMP 36.3–38.3; O2SAT 96–99
[2023-12-04 00:29] LABS: Glucose Point of Care 103 mg/dl (65-105)
[2023-12-04 04:57] LABS: Basophils Absolute Auto 0.1 K/mm3 (0.0-0.1); Basophils Percent Auto 0.5 % (0.2-1.2); Eosinophils Absolute Auto 0.4 K/mm3 (0-0.3); Eosinophils Percent Auto 2.6 % (0-4.4); Hematocrit 22.7 % (37.0-47.0); Hemoglobin 7.2 g/dL (12.0-15.0); Immature Granulocyte Percent A 1.3 % (0-0.5); Lymphocytes Percent Auto 7.4 % (18.3-44.2); Mean Corpuscular HGB Conc 31.7 g/dl (32-36); Mean Corpuscular Hemoglobin 29.6 pg (26-34); Mean Corpuscular Volume 93.4 fl (80-100); Mean Platelet Volume 9.5 fl (7.4-10.4); Monocytes Absolute Auto 0.6 K/mm3 (0.1-0.6); Monocytes Percent Auto 4.2 % (2.6-8.5); Neutrophils Absolute Auto 12.5 K/mm3 (1.3-6.7); Nucleated Red Blood Cells Perc 0.1 % (0.0-0.2); Platelet Count Result 388 k/mm3 (150-375); Red Blood Count 2.43 M/mm3 (4.2-5.4); Red Cell Distribution Width 13.3 % (11.5-14.5); White Blood Count 14.9 K/mm3 (4.5-10.0)
[2023-12-04] MEDS: VANCOMYCIN 2,000 MG/NS 500 ML 2,000 MG/500 ML BAG 250 MG IVPB ×3 (05:08→21:44)
[2023-12-04 05:18] LABS: Alanine Aminotransferase 79 U/L (6-35); Alkaline Phosphatase 126 U/L (38-126); Anion Gap 5 mmol/L (4-12); Aspartate Amino Transferase 51 U/L (14-36); Bilirubin,Total 0.6 mg/dL (0.2-1.3); Blood Urea Nitrogen 8 mg/dL (7-17); Calcium 7.9 mg/dL (8.4-10.2); Carbon Dioxide 27 mmol/L (22-30); Chloride 104 mmol/L (98-107); Estimated CRCL calculation 135 ml/min; Estimated Glomerular Filt Rate > 60; Glucose 115 mg/dL (65-110); Magnesium 2.1 mg/dL (1.6-2.3); Phosphorus 4.1 mg/dL (2.5-4.5); Sodium 136 mmol/L (137-145)
[2023-12-04 05:43] LABS: Procalcitonin 0.3 ng/mL
[2023-12-04] MEDS: POTASSIUM CHLORIDE 20 MEQ PACKET (FOR LIQUID) 40 MEQ PO (06:15)
[2023-12-04] MEDS: CENTRAL LINE FLUSH 10 ML IV PUSH ×3 (06:29→20:40)
--- NOTE | 2023-12-04 08:38 | PM.GYNPNOP ---
FINAL EXPENSE AGENT - A/P Assessment and plan (1) Encounter for postoperative care: Code(s): Z48.89 - Encounter for other specified surgical aftercare Status: Acute (2) Postoperative ileus: Code(s): K91.89 - Other postprocedural complications and disorders of digestive system; K56.7 - Ileus, unspecified Status: Acute Plan 43-year-old female postop day 8. From a open left oophorectomy. Postoperative ileus, intraoperative hemorrhage, complex surgical wound. No evidence of wound breakdown or infection. Soft skin around the incision sites. Increasing bowel function, await General surgery's recommendation on discharge. Postoperative Procedures: Procedures Operation Date: 11/26/23 12:30 Actual Procedure Side Surgeon p Open Left Salpingo-Oophorectomy, Repair of arteries and vein for intraoperative hemorrhage, extensive adhesiolysis Left Clyde Lopez MD Time Spent With Patient Time: Total time spent is greater than 50% in coordination of care (as documented) at patient's floor/unit and/or counseling patient: Time with patient: 15 - 25 minutes FINAL EXPENSE AGENT- PN:Subj Post-Op Subjective Date/time seen: 12/04/23 08:38 increasing bowel function, bowel movement yesterday, passing flatus, tolerating liquid Interval history: No acute overnight events. Patient is passing flatness. Exam Const: General: cooperative, healthy appearing, comfortable and no acute distress Orientation/consciousness: oriented to person, oriented to place and oriented to time HENMT: Head: normal to inspection Ears: external ears normal Face/Nose/Sinus: Normal external nose present and normal facial exam Face and sinus: normal facial exam Eyes: General: appearance normal, both eyes and all related structures Neck: Neck: normal visual inspection, trachea midline and supple Resp: Auscultation: clear to auscultation bilaterally, no crackles, no rales, no rhonchi and no wheezes Cardio: Rate: regular rate Rhythm: regular rhythm Heart sounds: no click, no murmurs and no rubs GI: GI Palp: No abdominal tenderness, No Soft to palpation, No Tenderness to palpation present (GI) and No Palpable mass present Auscultation: normal bowel sounds Skin: General skin exam: normal color and no rashes or lesions noted Neuro: General: oriented to person, oriented to place and oriented to time Extrem: General: normal to inspection, no joint enlargement, no clubbing, cyanosis or edema, no pedal edema and no calf tenderness Psych: Appearance: grossly normal Mental Status: mental status grossly normal Speech and movement: Normal speech and movement present FINAL EXPENSE AGENT - PN: Obj Data Vital Signs Vital Signs: Vital Signs - 24 hr 12/03/23 11:50 12/03/23 10:00 12/03/23 12:30 Temperature 97.0 F L Pulse Rate 112 H 108 H 115 H Respiratory Rate 20 Blood Pressure 158/82 H Pulse Oximetry 99 Oxygen Delivery 12/03/23 16:04 12/03/23 16:04 12/03/23 18:31 Temperature 96.9 F L 100 F H Pulse Rate 114 H 122 H Respiratory Rate 20 20 Blood Pressure 156/82 H Pulse Oximetry 98 96 97 Oxygen Delivery Room Air 12/03/23 18:38 12/03/23 19:36 12/03/23 14:00 Temperature 100 F H 97.9 F Pulse Rate 117 H 110 H Respiratory Rate 16 Blood Pressure 134/56 L Pulse Oximetry 98 Oxygen Delivery 12/03/23 16:00 12/03/23 18:00 12/03/23 20:00 Temperature Pulse Rate 107 H 98 Respiratory Rate Blood Pressure Pulse Oximetry 98 Oxygen Delivery Room Air 12/03/23 20:00 12/03/23 22:00 12/03/23 23:35 Temperature 98.4 F Pulse Rate 114 H 117 H 119 H Respiratory Rate 16 Blood Pressure 133/59 L Pulse Oximetry 98 Oxygen Delivery 12/04/23 00:00 12/04/23 00:00 12/04/23 02:00 Temperature Pulse Rate 118 H 112 H Respiratory Rate Blood Pressure Pulse Oximetry 98 Oxygen Delivery Room Air 12/04/23 03:58 12/04/23 04:00 12/04/23 04:00 Temperature 97.4 F L Pulse Rate 117 H 115 H Respiratory Rate 16 Bl
[2023-12-04] MEDS: HYDROcodone/acetaminophen (*CRX) 10-325 MG TABLET 1 TAB PO ×4 (10:00→21:44)
[2023-12-04] MEDS: SIMETHICONE 80 MG TAB.CHEW PO ×3 (10:02→17:17)
[2023-12-04] MEDS: ENOXAPARIN 30 MG/0.3 ML SYRINGE SUB-Q ×2 (10:02→20:39)
[2023-12-04] MEDS: MULTIVITAMINS THERAPEUTIC TAB (*BKC) 1 TABLET PO (10:02)
[2023-12-04] MEDS: PANTOPRAZOLE SODIUM IV 40 MG VIAL IV PUSH (10:02)
[2023-12-04] MEDS: BUMETANIDE INJ 1 MG/4 ML VIAL 2 MG IV PUSH (10:03)
[2023-12-04 11:41] LABS: Glucose Point of Care 136 mg/dl (65-105)
[2023-12-04] MEDS: METOCLOPRAMIDE HCL INJ 10 MG/2 ML VIAL IV PUSH (13:03)
--- NOTE | 2023-12-04 14:51 | PM.PNGS ---
Progress Note: A&P Assessment and Plan (1) Encounter for postoperative care: Code(s): Z48.89 - Encounter for other specified surgical aftercare Status: Acute Assessment and Plan: Will advance to full liquids, discontinue TPN. Continue to increase activity as tolerated. White blood cell count sitting around 14,000 and low-grade fever last night. No new complaints. Incision seems to be healing well with no signs of infection. Her abdominal exam is benign. Repeat labs again tomorrow and continue to monitor closely. (2) Tachycardia: Code(s): R00.0 - Tachycardia, unspecified Status: Acute Assessment and Plan: Still HR in 120's. CTA chest negative for PE on 11/28. She is on prophylactic Lovenox. Could be related to anemia and postop. Pain seems to be well controlled. (3) Intra-abdominal bleeding: Code(s): R58 - Hemorrhage, not elsewhere classified Status: Acute Assessment and Plan: Anemic postop but anemia appears stable, no signs of active bleeding. (4) Protein-calorie malnutrition, moderate: Code(s): E44.0 - Moderate protein-calorie malnutrition Status: Acute Assessment and Plan: Will stop TPN today, advancing diet Plan I have discussed the patient's case and plan of care with Dr. Garcia. Subjective Subjective Date/Time Seen: 12/04/23 14:51 Post Op day: 8 Patient reports: no new complaints, feels better, tolerating liquids well, flatus, bowel movement and fever (low grade temp 100F last night and this morning 99.9F) Interval history: No new complaints. Denies shortness of breath, chest pain, abdominal pain, calf pain, or any other issues at this time. She feels tired because she has not been able to take a nap today. She feels much better having the NG tube out. No nausea or vomiting. Tolerating clear liquids. She is up and ambulating in the halls per the patient. Exam Const: General: comfortable and no acute distress Resp: Effort & Inspection: normal respiratory effort Auscultation: clear to auscultation bilaterally Cardio: Rate: tachycardic Rhythm: regular rhythm GI: Inspection: non-distended, incision (incisions dry and henri intact, no erythema, no drainage) and obesity GI Palp: Yes Soft to palpation, Yes Tenderness to palpation present (GI) (expected incisional), No Guarding due to palpation present (GI) and No Rebound tenderness present Auscultation: normal bowel sounds Extrem: General: no calf tenderness and no edema Psych: Mental Status: mental status grossly normal Insight: Good insight present (Psych) Objective Data Vital Signs Vital Signs: Vital Signs - 24 hr 12/03/23 16:04 12/03/23 16:04 12/03/23 18:31 Temperature 96.9 F L 100 F H Pulse Rate 114 H 122 H Respiratory Rate 20 20 Blood Pressure 156/82 H Pulse Oximetry 98 96 97 Oxygen Delivery Room Air 12/03/23 18:38 12/03/23 19:36 12/03/23 16:00 Temperature 100 F H 97.9 F Pulse Rate 117 H 107 H Respiratory Rate 16 Blood Pressure 134/56 L Pulse Oximetry 98 Oxygen Delivery 12/03/23 18:00 12/03/23 20:00 12/03/23 20:00 Temperature Pulse Rate 98 114 H Respiratory Rate Blood Pressure Pulse Oximetry 98 Oxygen Delivery Room Air 12/03/23 22:00 12/03/23 23:35 12/04/23 00:00 Temperature 98.4 F Pulse Rate 117 H 119 H Respiratory Rate 16 Blood Pressure 133/59 L Pulse Oximetry 98 98 Oxygen Delivery Room Air 12/04/23 00:00 12/04/23 02:00 12/04/23 03:58 Temperature Pulse Rate 118 H 112 H Respiratory Rate Blood Pressure Pulse Oximetry 98 Oxygen Delivery Room Air 12/04/23 04:00 12/04/23 04:00 12/04/23 06:00 Temperature 97.4 F L Pulse Rate 117 H 115 H 119 H Respiratory Rate 16 Blood Pressure 127/56 L Pulse Oximetry 96 Oxygen Delivery 12/04/23 07:51 12/04/23 11:35 12/04/23 08:00 Temperature 99.9 F H 99.9 F H Pulse Rate 124 H 126 H 120 H Respiratory Rate 20 18 Blood Press
[2023-12-04] MEDS: ACETAMINOPHEN 325 MG TABLET 650 MG PO (17:17)
--- NOTE | 2023-12-04 17:45 | PM.IMPN ---
Progress Note: A&P Assessment and Plan (1) Postoperative fever: Code(s): R50.82 - Postprocedural fever Status: Resolved (2) Postoperative ileus: Code(s): K91.89 - Other postprocedural complications and disorders of digestive system; K56.7 - Ileus, unspecified Status: Acute (3) Tachycardia: Code(s): R00.0 - Tachycardia, unspecified Status: Acute (4) Intra-abdominal bleeding: Code(s): R58 - Hemorrhage, not elsewhere classified Status: Acute (5) Left ovarian cyst: Code(s): N83.202 - Unspecified ovarian cyst, left side Status: Chronic (6) Protein-calorie malnutrition, moderate: Code(s): E44.0 - Moderate protein-calorie malnutrition Status: Acute (7) UTI (urinary tract infection): Code(s): N39.0 - Urinary tract infection, site not specified Status: Acute (8) Sepsis: Code(s): A41.9 - Sepsis, unspecified organism Status: Acute (9) Hypoxia: Code(s): R09.02 - Hypoxemia Status: Acute Plan 43-year-old female with a past medical history anxiety and depression, diverticulitis, hernia repair with postop PE now off of anticoagulation, hypertension, hyperlipidemia, sleep apnea, obesity, seizures (absent type), presented on 11/25 for surgical management of a 5 cm left ovarian cyst that had been causing pelvic pain.? Surgery initially attempted laparoscopically but became complicated by adhesions and intra-abdominal bleeding.? Surgery converted to a low transverse incision.? General surgeon join the case to help assist bleeding control urology as well and the Lr was replaced with rigid cystoscope bladder or ureteral injury identified.? Postop day 1 for the salpingo-oophorectomy, repair vascular injury, intraoperative hemorrhage home was 9.9 in due to worsening tachycardia she was given 2 units PRBC.? Postop day 2 wound VAC applied.? Due to chills/rigors/worsening tachycardia antibiotics were escalated to meropenem and vancomycin.? Cardiology consulted and felt tachycardia is a physiologic response.? CTA chest abdomen pelvis did not demonstrate pulmonary embolism, pelvic free fluid and air collection seen along the left adnexal area and anterior aspect of the left psoas muscle with small fluid collections in the paracolic gutters.? During this time she was transferred to ICU and found to also have developed postop ileus.? On 11/28 NG tube placed for decompression evacuating large amount of dark green gastric content. On 11/29 she remains in sinus tachycardia in the 110s to 120s.? This still appears to be due to postop anemia, ileus, pain.? She no longer has fevers.? She has had large volume output in the NG tube and absent bowel sounds.? She remains NPO with ice chips and a PICC line has been placed for TPN.? Continue to monitor hemoglobin as she is status post 2 units PRBCs for intraoperative bleeding.? Leukocytosis persist so we will check procalcitonin in the morning and deescalate meropenem and vancomycin as appropriate.? Blood cultures so far no growth to date and urine culture growing Enterococcus species sensitive to ampicillin vancomycin and nitrofurantoin.? Her main complaint is the significant pain/scratching in her throat due to the NG to which causes her to be tearful.? Not quite relieved with phenol throat spray.? Have ordered a 1 time dose of lidocaine viscous solution.? Assess for response. 513 update: NG tube being removed by General surgery. Patient is advised to ambulate and start a clear liquid diet. Blood pressure is slowly creeping up so we will restart her amlodipine. Continue to trend leukocytosis she is currently on vancomycin. 12/03: Low-grade postop fever with tachycardia. Continue ambulation. Continue diet as tolerated. She looks better and is tolerating diet. Order Christoph hose stockings as she has bilateral edema distal to the knees. Continue to monitor for evidence of overt infection. Procalcitonin again in the morning. Con
[2023-12-04 18:22] LABS: Glucose Point of Care 130 mg/dl (65-105)
[2023-12-04] MEDS: AMITRIPTYLINE HCL 25 MG TABLET PO (20:39)
[2023-12-04] MEDS: amLODIPine BESYLATE 5 MG TABLET PO (20:39)
[2023-12-04] MEDS: lamoTRIgine 100 MG TABLET PO (20:40)
[2023-12-04] MEDS: lamoTRIgine 25 MG TABLET 50 MG PO (20:40)
--- NOTE | 2023-12-04 23:44 | PC.NURSE ---
This patient, Devi Chow, was transferred to room 313 on 12/04/23 at 2327. Personal belongings sent with patient. Report given to STEVE Patten. Appropriate documentation sent with patient.
[2023-12-05] VITALS (12 sets, daily range): BP systolic 115–150; BP diastolic 62–81; PULSE 84–126; RESP 14–24; TEMP 36.2–38.7; O2SAT 94–100
[2023-12-05] MEDS: HYDROcodone/acetaminophen (*CRX) 10-325 MG TABLET 1 TAB PO ×5 (02:00→20:33)
[2023-12-05] MEDS: CENTRAL LINE FLUSH 10 ML IV PUSH ×3 (05:25→20:35)
[2023-12-05] MEDS: ACETAMINOPHEN 325 MG TABLET 650 MG PO ×2 (05:26→13:39)
[2023-12-05 07:31] LABS: Basophils Absolute Auto 0.1 K/mm3 (0.0-0.1); Basophils Percent Auto 0.3 % (0.2-1.2); Eosinophils Absolute Auto 0.3 K/mm3 (0-0.3); Eosinophils Percent Auto 1.7 % (0-4.4); Hematocrit 22.3 % (37.0-47.0); Hemoglobin 7.1 g/dL (12.0-15.0); Immature Granulocyte Absolute 0.19 K/mm3 (0.00-0.031); Immature Granulocyte Percent A 1.1 % (0-0.5); Lymphocytes Absolute Auto 1.16 K/mm3 (0.9-3.2); Lymphocytes Percent Auto 6.7 % (18.3-44.2); Mean Corpuscular HGB Conc 31.8 g/dl (32-36); Mean Corpuscular Hemoglobin 29.7 pg (26-34); Mean Corpuscular Volume 93.3 fl (80-100); Mean Platelet Volume 9.7 fl (7.4-10.4); Monocytes Percent Auto 5.6 % (2.6-8.5); Neutrophils Absolute Auto 14.6 K/mm3 (1.3-6.7); Neutrophils Percent Auto 84.6 % (45.5-73.1); Nucleated Red Blood Cells Perc 0.1 % (0.0-0.2); Platelet Count Result 444 k/mm3 (150-375); Red Blood Count 2.39 M/mm3 (4.2-5.4); Red Cell Distribution Width 13.6 % (11.5-14.5); White Blood Count 17.2 K/mm3 (4.5-10.0)
[2023-12-05 07:39] LABS: Anion Gap 3 mmol/L (4-12); Blood Urea Nitrogen 10 mg/dL (7-17); Calcium 7.8 mg/dL (8.4-10.2); Carbon Dioxide 29 mmol/L (22-30); Chloride 103 mmol/L (98-107); Estimated CRCL calculation 84 ml/min; Estimated Glomerular Filt Rate 60; Glucose 103 mg/dL (65-110); Potassium 3.5 mmol/L (3.4-5.0); Sodium 135 mmol/L (137-145)
[2023-12-05 07:47] LABS: Procalcitonin 0.3 ng/mL
[2023-12-05] MEDS: ENOXAPARIN 30 MG/0.3 ML SYRINGE SUB-Q (07:51)
[2023-12-05] MEDS: SIMETHICONE 80 MG TAB.CHEW PO ×3 (07:51→16:44)
[2023-12-05] MEDS: MULTIVITAMINS THERAPEUTIC TAB (*BKC) 1 TABLET PO (07:52)
[2023-12-05] MEDS: PANTOPRAZOLE SODIUM IV 40 MG VIAL IV PUSH (07:52)
--- NOTE | 2023-12-05 10:15 | PM.PNGS ---
Progress Note: A&P Assessment and Plan (1) Encounter for postoperative care: Code(s): Z48.89 - Encounter for other specified surgical aftercare Status: Acute Assessment and Plan: increasing leukocytosis, will get CT to further eval, exam benign, magdiel diet, encourage OOB/IS Subjective Subjective Date/Time Seen: 12/05/23 10:15 Interval history: feels better overall, but still c fevers/chills Review of Systems Review of Systems: All systems reviewed & are unremarkable except as noted in HPI and below Exam Const: General: cooperative, comfortable and no acute distress Resp: Auscultation: clear to auscultation bilaterally Cardio: Rate: tachycardic Rhythm: regular rhythm GI: Inspection: normal to inspection, distended and incision GI Palp: Yes abdominal tenderness, Yes Soft to palpation and Yes Tenderness to palpation present (GI) Objective Data Vital Signs Vital Signs: Vital Signs - 24 hr 12/04/23 11:35 12/04/23 12:00 12/04/23 14:00 Temperature 37.7 C H Pulse Rate 126 H 116 H 114 H Respiratory Rate 18 Blood Pressure 139/68 Pulse Oximetry 97 Oxygen Delivery 12/04/23 15:55 12/04/23 17:17 12/04/23 18:17 Temperature 37.9 C H 37.9 C H 38.3 C H Pulse Rate 115 H Respiratory Rate 20 Blood Pressure 140/74 Pulse Oximetry 96 Oxygen Delivery 12/04/23 20:00 12/04/23 20:00 12/05/23 05:26 Temperature 37.3 C 38.6 C H Pulse Rate 111 H 111 H Respiratory Rate 16 16 Blood Pressure 116/50 L Pulse Oximetry 99 99 Oxygen Delivery Room Air 12/05/23 04:30 12/05/23 07:50 12/05/23 08:00 Temperature 38.7 C H 37.1 C Pulse Rate 126 H Respiratory Rate 24 H Blood Pressure 139/73 Pulse Oximetry 94 Oxygen Delivery Room Air Intake/Output Intake/Output: Intake & Output 12/02/23 12/03/23 12/04/23 12/05/23 23:59 23:59 23:59 23:59 Intake Total 2332.7 3400.7 2809.2 1630 Output Total 1750 1150 1340 Balance 582.7 2250.7 1469.2 1630 Meds/Results Medications: Active Medications Generic Name Dose Route Start Last Admin Trade Name Freq PRN Reason Stop Dose Admin Acetaminophen 650 mg 11/28/23 21:16 12/05/23 05:26 Acetaminophen 325 Mg Tablet PO 650 mg Q4H PRN Administration Fever Hydrocodone Bitart/Acetaminophen 1 tab 11/26/23 20:00 11/28/23 11:07 Hydrocodone/Acetaminophen (*Crx) 5-325 Mg Tablet PO 1 tab Q3H PRN Administration Pain Rated 5 or Less Hydrocodone Bitart/Acetaminophen 1 tab 11/26/23 20:00 12/05/23 06:16 Hydrocodone/Acetaminophen (*Crx) 10-325 Mg Tablet PO 1 tab Q3H PRN Administration Pain Rated 6 or Greater Amitriptyline HCl 25 mg 11/26/23 21:00 12/04/23 20:39 Amitriptyline Hcl 25 Mg Tablet PO 25 mg QHS BRIANA Administration Amlodipine Besylate 5 mg 11/26/23 21:00 12/04/23 20:39 Amlodipine Besylate 5 Mg Tablet PO 5 mg HS BRIANA Administration Enoxaparin Sodium 30 mg 11/27/23 09:00 12/05/23 07:51 Enoxaparin 30 Mg/0.3 Ml Syringe SUB-Q 30 mg Q12HR BRIANA Administration Lamotrigine 100 mg 11/26/23 21:00 12/04/23 20:40 Lamotrigine 100 Mg Tablet PO 100 mg HS BRIANA Administration Lamotrigine 50 mg 11/26/23 21:00 12/04/23 20:40 Lamotrigine 25 Mg Tablet PO 50 mg HS BRIANA Administration Loratadine 10 mg 11/26/23 20:07 Loratadine 10 Mg Tablet PO HS PRN Allergy Symptoms Losartan Potassium 50 mg 11/27/23 09:00 11/28/23 08:21 Losartan Potassium 50 Mg Tablet PO 50 mg QAM BRIANA Administration Metoclopramide HCl 10 mg 11/26/23 20:00 12/04/23 13:03 Metoclopramide Hcl Inj 10 Mg/2 Ml Vial IV PUSH 10 mg Q6H PRN Administration Nausea Morphine Sulfate 4 mg 11/26/23 20:00 11/29/23 17:19 Morphine Sulfate (*Crx) 4 Mg/Ml Inj IV PUSH 4 mg Q4H PRN Administration Pain Rated 7-10 Multivitamins Therapeutic 1 tablet 11/27/23 09:00 12/05/23 07:52 Multivitamins Therapeutic Tab (*Bkc) PO 1 tablet DAILY BRIANA
--- NOTE | 2023-12-05 12:17 | PCPTNOTE ---
Patient is independent with transfers and gait in the room and demonstrated independence with theses activities during PT yesterday. I discussed plan for performing stair climbing intervention today for PT, however patient declined stating she has had pelvic pain today and does not feel she can complete the steps without increased pain. PT will continue to follow to complete stair climbing intervention and achieve goal.
[2023-12-05] MEDS: MORPHINE SULFATE (*CRX) 4 MG/ML INJ IV PUSH ×2 (12:27→15:05)
--- NOTE | 2023-12-05 14:09 | PCNFU ---
Nutrition Follow-Up Complete: Inadequate po intake related to NPO diet orders as evidenced by need for alternative nutrition support - resolved Meet estimated needs, advance to PO intake _ Goal is being met PO. TPN is discontinued Goal: Pt current nutrition is Heart healthy diet. TPN was discontinued yesterday. Nutrition recommendation: No new nutrition recommendations. Continue with current heart healthy diet. Last recorded weight is 113.6 kg. Bowel Motility: BM + 1 today 12/04 Labs Reviewed: Hgb 7.1, Hct 22.3, Na 135 Meds Noted: insulin, reglan, zofran, protonix Skin: WNL Additional Notes: Pt declines supplements. Eating 10-50% meals. Agree with current orders Monitor TPN, labs, wt. Follow up every Friday and Friday.
--- NOTE | 2023-12-05 15:26 | PC.NURSE ---
Pt. down for CT guided drain placement at 1505. 4mg morphine given IVP prior to departure from floor per Dr Wen's telephone orders.
[2023-12-05] MEDS: CEFEPIME 2 GM/NS 50 ML 2 GM/50 ML BAG IVPB (16:44)
[2023-12-05] MEDS: metroNIDAZOLE 500 MG TABLET PO ×2 (16:44→20:34)
[2023-12-05] MEDS: VANCOMYCIN 1,500 MG/NS 500 ML 1,500 MG/500 ML BAG 250 MG IVPB (17:19)
[2023-12-05 18:31] LABS: Hematocrit 20.1 % (37.0-47.0); Hemoglobin 6.6 g/dL (12.0-15.0)
[2023-12-05] MEDS: amLODIPine BESYLATE 5 MG TABLET PO (20:34)
[2023-12-05] MEDS: AMITRIPTYLINE HCL 25 MG TABLET PO (20:34)
[2023-12-05] MEDS: lamoTRIgine 100 MG TABLET PO (20:34)
[2023-12-05] MEDS: lamoTRIgine 25 MG TABLET 50 MG PO (20:34)
[2023-12-05] MEDS: SODIUM CHLORIDE 0.9% IV 250 ML 30 ML IV CONT (20:35)
[2023-12-06] VITALS (9 sets, daily range): BP systolic 106–142; BP diastolic 62–79; PULSE 82–123; RESP 13–20; TEMP 36.6–38.3; O2SAT 94–96
[2023-12-06] MEDS: HYDROcodone/acetaminophen (*CRX) 10-325 MG TABLET 1 TAB PO ×4 (00:48→21:56)
[2023-12-06] MEDS: ONDANSETRON INJ 4 MG/2 ML VIAL IV PUSH ×2 (00:49→20:18)
[2023-12-06 03:09] LABS: Hematocrit 21.6 % (37.0-47.0); Hemoglobin 7.1 g/dL (12.0-15.0)
[2023-12-06 03:36] LABS: Toxigenic C. Diff NEGATIVE (NEGATIVE)
[2023-12-06] MEDS: ACETAMINOPHEN 325 MG TABLET 650 MG PO ×2 (04:36→17:59)
[2023-12-06] MEDS: CEFEPIME 2 GM/NS 50 ML 2 GM/50 ML BAG IVPB ×2 (04:36→15:58)
[2023-12-06] MEDS: SODIUM CHLORIDE 0.9% IV 250 ML 20 ML (04:37)
[2023-12-06 04:49] LABS: Basophils Percent Auto 0.3 % (0.2-1.2); Eosinophils Absolute Auto 0.2 K/mm3 (0-0.3); Eosinophils Percent Auto 1.8 % (0-4.4); Hematocrit 22.8 % (37.0-47.0); Hemoglobin 7.3 g/dL (12.0-15.0); Immature Granulocyte Absolute 0.14 K/mm3 (0.00-0.031); Immature Granulocyte Percent A 1.1 % (0-0.5); Lymphocytes Absolute Auto 1.16 K/mm3 (0.9-3.2); Lymphocytes Percent Auto 8.8 % (18.3-44.2); Mean Corpuscular Hemoglobin 29.3 pg (26-34); Mean Corpuscular Volume 91.6 fl (80-100); Monocytes Absolute Auto 0.8 K/mm3 (0.1-0.6); Monocytes Percent Auto 5.7 % (2.6-8.5); Neutrophils Absolute Auto 10.9 K/mm3 (1.3-6.7); Neutrophils Percent Auto 82.3 % (45.5-73.1); Nucleated Red Blood Cells Perc 0.2 % (0.0-0.2); Red Blood Count 2.49 M/mm3 (4.2-5.4); Red Cell Distribution Width 14.8 % (11.5-14.5); White Blood Count 13.2 K/mm3 (4.5-10.0)
[2023-12-06 04:56] LABS: Anion Gap 4 mmol/L (4-12); Blood Urea Nitrogen 10 mg/dL (7-17); Carbon Dioxide 28 mmol/L (22-30); Chloride 102 mmol/L (98-107); Estimated CRCL calculation 93 ml/min; Estimated Glomerular Filt Rate > 60; Glucose 101 mg/dL (65-110); Magnesium 2.2 mg/dL (1.6-2.3); Potassium 3.7 mmol/L (3.4-5.0); Sodium 134 mmol/L (137-145)
[2023-12-06 05:02] LABS: Platelet Estimate Adequate (Adequate); Schistocytes None Seen
[2023-12-06] MEDS: VANCOMYCIN 1,500 MG/NS 500 ML 1,500 MG/500 ML BAG 250 MG IVPB ×2 (06:17→16:29)
[2023-12-06] MEDS: metroNIDAZOLE 500 MG TABLET PO ×3 (06:18→20:17)
[2023-12-06] MEDS: CENTRAL LINE FLUSH 10 ML IV PUSH ×3 (06:18→20:18)
[2023-12-06] MEDS: SIMETHICONE 80 MG TAB.CHEW PO ×3 (07:54→16:29)
[2023-12-06] MEDS: MULTIVITAMINS THERAPEUTIC TAB (*BKC) 1 TABLET PO (07:55)
[2023-12-06] MEDS: PANTOPRAZOLE SODIUM IV 40 MG VIAL IV PUSH (07:55)
--- NOTE | 2023-12-06 10:33 | PM.GYNPNOP ---
STORE LEADER - A/P Assessment and plan (1) Encounter for postoperative care: Code(s): Z48.89 - Encounter for other specified surgical aftercare Status: Acute (2) Postoperative fever: Code(s): R50.82 - Postprocedural fever Status: Resolved Plan 43-year-old female who is postop day number 10 from a open left oophorectomy complicated by intraoperative hemorrhage. Intra-abdominal/pelvic abscesses been diagnosed with catheter placement yesterday under CT guidance. Antibiotics With associated diarrhea. Concerned about area of incision, distal pannus. Induration, possible erythema and discharge. to remove henri on Friday. Continue absent supportive care along with antibiotics, DVT prophylaxis. Postoperative Procedures: Procedures Operation Date: 11/26/23 12:30 Actual Procedure Side Surgeon p Open Left Salpingo-Oophorectomy, Repair of arteries and vein for intraoperative hemorrhage, extensive adhesiolysis Left Clyde Lopez MD Time Spent With Patient Time: Total time spent is greater than 50% in coordination of care (as documented) at patient's floor/unit and/or counseling patient: Time with patient: 15 - 25 minutes STORE LEADER- PN:Subj Post-Op Subjective Date/time seen: 12/06/23 10:33 Denies nausea, vomiting, fever, chills. Denies chest pain shortness of breath. No vaginal bleeding. Minimal-moderate pain. Ambulating , diarrhea. Interval history: No acute overnight events. Patient feels better. She reports mild pain at the insertion site of the abscess drain. She still has yellow watery diarrhea. Minimal incision pain. Exam Const: General: cooperative, healthy appearing, comfortable and no acute distress Orientation/consciousness: oriented to person, oriented to place and oriented to time HENMT: Head: normal to inspection Ears: external ears normal Face/Nose/Sinus: Normal external nose present and normal facial exam Face and sinus: normal facial exam Eyes: General: appearance normal, both eyes and all related structures Neck: Neck: normal visual inspection, trachea midline and supple Resp: Auscultation: clear to auscultation bilaterally, no crackles, no rales, no rhonchi and no wheezes Cardio: Rate: regular rate Rhythm: regular rhythm Heart sounds: no click, no murmurs and no rubs GI: GI Palp: No abdominal tenderness, No Soft to palpation, No Tenderness to palpation present (GI) and No Palpable mass present Auscultation: normal bowel sounds Other: Intact incision, induration at the most dependent part of her pannus. Possible discharge between the henri in this area. Skin: General skin exam: normal color and no rashes or lesions noted Neuro: General: oriented to person, oriented to place and oriented to time Extrem: General: normal to inspection, no joint enlargement, no clubbing, cyanosis or edema, no pedal edema and no calf tenderness Psych: Appearance: grossly normal Mental Status: mental status grossly normal Speech and movement: Normal speech and movement present STORE LEADER - PN: Obj Data Vital Signs Vital Signs: Vital Signs - 24 hr 12/05/23 11:43 12/05/23 13:39 12/05/23 14:00 Temperature 99.2 F 99.9 F H 99.2 F Pulse Rate 114 H Respiratory Rate 16 Blood Pressure 118/76 Pulse Oximetry 98 Oxygen Delivery 12/05/23 14:39 12/05/23 20:30 12/05/23 22:14 Temperature 99.2 F 97.2 F L 99.7 F H Pulse Rate 107 H 125 H Respiratory Rate 16 14 Blood Pressure 134/81 150/66 H Pulse Oximetry 100 100 Oxygen Delivery 12/05/23 20:00 12/05/23 22:28 12/05/23 23:30 Temperature 99.4 F 98.2 F Pulse Rate 125 H 84 118 H Respiratory Rate 14 18 22 H Blood Pressure 115/62 133/77 Pulse Oximetry 100 100 95 Oxygen Delivery Room Air 12/06/23 00:30 12/06/23 04:36 12/06/23 04:30 Temperature 99.3 F 100.9 F H 100.9 F H Pulse Rate 123 H 109 H Respiratory Rate 20 20 Blood Pressure 125/67 106/67 Pulse Oximetry 95 94 Oxygen Delivery 12/06/23 07:51 0
--- NOTE | 2023-12-06 10:45 | WPDPN ---
Progress Note: A&P Assessment and Plan (1) Intra-abdominal abscess: Code(s): K65.1 - Peritoneal abscess Status: Acute Assessment and Plan: Large left lower quadrant abdominal abscess drained yesterday. Cultures are pending. Patient continues on cefepime and vancomycin IV. Flagyl orally. Is better today. Continues to have bowel movements. Will await culture results. Supportive management for now. Continue to get up and ambulate. DVT prophylaxis. Subjective Date/time seen: 12/06/23 10:45 Interval history: Patient is sitting up today in he with family. Tolerating solid food without difficulty. Having multiple loose bowel movements. White blood count was increasing and so CT scan abdomen pelvis was done yesterday and this showed a large left lower quadrant abdominal abscess. It was drained by IR CT-guided drainage yesterday. White blood cell count is decreasing today. Culture results on the abscess are pending. No fevers or chills. No tachycardia. Exam GI: Other: Abdomen is moderately obese and minimally distended. Midline incision is healing well without redness or drainage. Left lower quadrant IR drain in place. Output is now relatively and purulent. Objective Data Vital Signs Vital Signs: Vital Signs - 24 hr 12/05/23 11:43 12/05/23 13:39 12/05/23 14:00 Temperature 37.3 C 37.7 C H 37.3 C Pulse Rate 114 H Respiratory Rate 16 Blood Pressure 118/76 Pulse Oximetry 98 Oxygen Delivery 12/05/23 14:39 12/05/23 20:30 12/05/23 22:14 Temperature 37.3 C 36.2 C L 37.6 C H Pulse Rate 107 H 125 H Respiratory Rate 16 14 Blood Pressure 134/81 150/66 H Pulse Oximetry 100 100 Oxygen Delivery 12/05/23 20:00 12/05/23 22:28 12/05/23 23:30 Temperature 37.4 C 36.8 C Pulse Rate 125 H 84 118 H Respiratory Rate 14 18 22 H Blood Pressure 115/62 133/77 Pulse Oximetry 100 100 95 Oxygen Delivery Room Air 12/06/23 00:30 12/06/23 04:36 12/06/23 04:30 Temperature 37.4 C 38.3 C H 38.3 C H Pulse Rate 123 H 109 H Respiratory Rate 20 20 Blood Pressure 125/67 106/67 Pulse Oximetry 95 94 Oxygen Delivery 12/06/23 07:51 12/06/23 08:00 Temperature 37.5 C Pulse Rate Respiratory Rate Blood Pressure Pulse Oximetry Oxygen Delivery Room Air Intake/Output Intake/Output: Intake & Output 12/03/23 12/04/23 12/05/23 12/06/23 23:59 23:59 23:59 23:59 Intake Total 3400.7 2809.2 2778 820 Output Total 1150 1340 300 Balance 2250.7 1469.2 2478 820 Meds/Results Medications: Active Medications Generic Name Dose Route Start Last Admin Trade Name Freq PRN Reason Stop Dose Admin Acetaminophen 650 mg 11/28/23 21:16 12/06/23 04:36 Acetaminophen 325 Mg Tablet PO 650 mg Q4H PRN Administration Fever Hydrocodone Bitart/Acetaminophen 1 tab 11/26/23 20:00 11/28/23 11:07 Hydrocodone/Acetaminophen (*Crx) 5-325 Mg Tablet PO 1 tab Q3H PRN Administration Pain Rated 5 or Less Hydrocodone Bitart/Acetaminophen 1 tab 11/26/23 20:00 12/06/23 07:54 Hydrocodone/Acetaminophen (*Crx) 10-325 Mg Tablet PO 1 tab Q3H PRN Administration Pain Rated 6 or Greater Amitriptyline HCl 25 mg 11/26/23 21:00 12/05/23 20:34 Amitriptyline Hcl 25 Mg Tablet PO 25 mg QHS BRIANA Administration Amlodipine Besylate 5 mg 11/26/23 21:00 12/05/23 20:34 Amlodipine Besylate 5 Mg Tablet PO 5 mg HS BRIANA Administration Enoxaparin Sodium 30 mg 11/27/23 09:00 12/05/23 07:51 Enoxaparin 30 Mg/0.3 Ml Syringe SUB-Q 30 mg Q12HR BRIANA Administration Cefepime HCl 2 gm in 50 mls @ 100 mls/hr 12/05/23 16:00 12/06/23 04:36 Maxipime 2 Gm/Ns 50 Ml IVPB 100 mls/hr Q12H BRIANA Administration Vancomycin HCl 1,500 mg in 500 mls @ 250 mls/hr 12/05/23 17:00 12/06/23 06:17 Vancomycin 1,500 Mg/Ns 500 Ml IVPB 250 mls/hr Q12H BRIANA Administration Lamotrigine 100 mg 11/26/23 21:00 12/05/23 20:34 Lamotrigine 100 Mg Tablet PO
[2023-12-06] MEDS: MORPHINE SULFATE (*CRX) 4 MG/ML INJ IV PUSH ×2 (15:57→20:17)
[2023-12-06] MEDS: lamoTRIgine 25 MG TABLET 50 MG PO (20:17)
[2023-12-06] MEDS: AMITRIPTYLINE HCL 25 MG TABLET PO (20:17)
[2023-12-06] MEDS: amLODIPine BESYLATE 5 MG TABLET PO (20:17)
[2023-12-06] MEDS: lamoTRIgine 100 MG TABLET PO (20:17)
[2023-12-06 22:28] LABS: Appearance Urine Cloudy (Clear); Bacteria Urine None Seen /hpf; Bilirubin Urine Negative (Negative); Blood Urine Negative (Negative); Color Urine Yellow (Yellow); Glucose Urine UA Negative (Negative); Ketones Urine Negative (Negative); Leukocyte Esterase Ur Negative LEU/UL (Negative); Nitrate Urine Negative (Negative); Non Pathogenic Casts 0-2; Protein Urine Trace mg/dL (Negative); RBC Urine 0-2 /hpf (0-2); Specific Grav Ur 1.021 (1.001-1.035); Squamous Epithelial Cell Urine Occasional /hpf (Few); Urobilinogen Urine 0.2 mg/dL (<2.0); WBC Urine 0-5 /hpf (0-3); pH Urine 5.5 (5.0-9.0)
[2023-12-06 22:37] LABS: Add Urine Microscopic? YES
[2023-12-07] VITALS (9 sets, daily range): BP systolic 106–142; BP diastolic 59–79; PULSE 96–105; RESP 12–18; TEMP 36.6–37.7; O2SAT 94–100
[2023-12-07] MEDS: HYDROcodone/acetaminophen (*CRX) 10-325 MG TABLET 1 TAB PO ×5 (00:55→17:07)
[2023-12-07] MEDS: CEFEPIME 2 GM/NS 50 ML 2 GM/50 ML BAG IVPB ×2 (03:54→16:17)
[2023-12-07] MEDS: SODIUM CHLORIDE 0.9% IV 100 ML 10 ML (03:54)
[2023-12-07 04:28] LABS: Hematocrit 21.8 % (37.0-47.0); Mean Corpuscular HGB Conc 31.7 g/dl (32-36); Mean Corpuscular Hemoglobin 29.1 pg (26-34); Mean Platelet Volume 10.2 fl (7.4-10.4); Platelet Count Result 273 k/mm3 (150-375); Red Blood Count 2.37 M/mm3 (4.2-5.4); White Blood Count 11.4 K/mm3 (4.5-10.0)
[2023-12-07 04:33] LABS: Hemoglobin 6.9 g/dL (12.0-15.0)
[2023-12-07 04:48] LABS: Anion Gap 5 mmol/L (4-12); Blood Urea Nitrogen 9 mg/dL (7-17); Calcium 7.8 mg/dL (8.4-10.2); Carbon Dioxide 27 mmol/L (22-30); Chloride 102 mmol/L (98-107); Estimated CRCL calculation 93 ml/min; Estimated Glomerular Filt Rate > 60; Glucose 100 mg/dL (65-110); Magnesium 2.2 mg/dL (1.6-2.3); Potassium 3.6 mmol/L (3.4-5.0); Sodium 134 mmol/L (137-145)
[2023-12-07 05:17] LABS: Procalcitonin 0.4 ng/mL
[2023-12-07] MEDS: ALTEPLASE 2 MG VIAL (CATHFLO) IV PUSH (05:19)
[2023-12-07] MEDS: SODIUM CHLORIDE 0.9% IV 250 ML 30 ML IV CONT (05:21)
[2023-12-07] MEDS: metroNIDAZOLE 500 MG TABLET PO ×3 (05:21→20:19)
[2023-12-07] MEDS: CENTRAL LINE FLUSH 10 ML IV PUSH ×3 (05:22→20:19)
[2023-12-07] MEDS: ONDANSETRON INJ 4 MG/2 ML VIAL IV PUSH (05:39)
[2023-12-07] MEDS: MORPHINE SULFATE (*CRX) 4 MG/ML INJ IV PUSH ×2 (05:39→20:18)
--- NOTE | 2023-12-07 07:40 | PC.NURSE ---
Day shift RNScott informed this RN that PCT and RN did not document vital signs in [facility], but did record them on paper in room. Day shift RN entered them in at their appropriate times per the documentation sheet.
[2023-12-07] MEDS: MULTIVITAMINS THERAPEUTIC TAB (*BKC) 1 TABLET PO (08:17)
[2023-12-07] MEDS: SIMETHICONE 80 MG TAB.CHEW PO ×3 (08:17→16:30)
[2023-12-07] MEDS: PANTOPRAZOLE SODIUM IV 40 MG VIAL IV PUSH (08:18)
--- NOTE | 2023-12-07 08:18 | PM.IMPN ---
Progress Note: A&P Assessment and Plan (1) Postoperative fever: Code(s): R50.82 - Postprocedural fever Status: Resolved (2) Postoperative ileus: Code(s): K91.89 - Other postprocedural complications and disorders of digestive system; K56.7 - Ileus, unspecified Status: Acute (3) Tachycardia: Code(s): R00.0 - Tachycardia, unspecified Status: Acute (4) Intra-abdominal bleeding: Code(s): R58 - Hemorrhage, not elsewhere classified Status: Acute (5) Left ovarian cyst: Code(s): N83.202 - Unspecified ovarian cyst, left side Status: Chronic (6) Protein-calorie malnutrition, moderate: Code(s): E44.0 - Moderate protein-calorie malnutrition Status: Acute (7) UTI (urinary tract infection): Code(s): N39.0 - Urinary tract infection, site not specified Status: Acute (8) Sepsis: Code(s): A41.9 - Sepsis, unspecified organism Status: Acute (9) Hypoxia: Code(s): R09.02 - Hypoxemia Status: Acute Plan 43-year-old female with a past medical history anxiety and depression, diverticulitis, complicated hernia repair with postop PE now off of anticoagulation, hypertension, hyperlipidemia, sleep apnea, obesity, seizures (absent type), presented on 11/25 for surgical management of a 5 cm left ovarian cyst that had been causing pelvic pain.? Surgery initially attempted laparoscopically but became complicated by adhesions and intra-abdominal bleeding.? Surgery converted to a low transverse incision.? General surgeon joint the case to help assist bleeding control and urology as well to help identify the left ureter. Postop day 2 wound VAC applied to the lower transverse incision, wound VAC since removed.? Due to chills/rigors/worsening tachycardia antibiotics were escalated to meropenem and vancomycin.? Cardiology consulted and felt tachycardia is a physiologic response.?CTA chest abdomen pelvis did not demonstrate pulmonary embolism.?During this time she was transferred to ICU and found to also have developed postop ileus.? On 11/28 NG tube placed for decompression evacuating large amount of dark green gastric content. She has since been referred out of the ICU and NG to removed she is tolerating diet. Postop ileus resolved. However she remained tachycardic and also due to leukocytosis and fever repeat CT abdomen pelvis was performed which demonstrated a large intra abdominal abscess. On December [address]-guided percutaneous abscess drain placement with good pus removal. Postoperative fever/sepsis -likely due to the intra-abdominal abscess. -T-max 100.3?. Fever curve and tachycardia coming down since percutaneous abscess drain placed. -she had diarrhea after beginning to tolerate diet. 12/06 she reports that is becoming more formed. C diff negative. Intra-abdominal abscess -the son on repeat CT abdomen pelvis on 12/04 due to tachycardia and fever. Revealed an abscess measuring approximately 13.4 x 12.6 x 14.6 cm. -status post percutaneous drain placement on 12/04. Output since 300 mL of purulent fluid. -management of this per General surgery and Ob Gyne Hypoxia -likely due to bibasilar atelectasis. Resolved. She reports she still uses the incentive spirometer frequently Sinus tachycardia -was up in the 150s postop. Now coming down since the abscess drain was placed. -Cardiology previously consulted, felt due to physiologic sinus tachycardia. Postoperative ileus -TPN started via PICC line on 11/29. TPN since discontinued, NG tube removed as well and she is tolerating diet. -continue to manage per General surgery recommendations. Continue to ambulate which she is doing well with Intra-abdominal hemorrhage and postop anemia -baseline hemoglobin in the 10s-11's. Receive 1 unit PRBC postop. Received another on 12/04 another on 12/06. -she was scheduled for a colonoscopy on the . She does not remember who she was scheduled with. This was be
[2023-12-07] MEDS: VANCOMYCIN 2,000 MG/NS 500 ML 2,000 MG/500 ML BAG 250 MG IVPB ×2 (08:22→18:16)
--- NOTE | 2023-12-07 09:25 | WPDPN ---
Progress Note: A&P Assessment and Plan (1) Intra-abdominal abscess: Code(s): K65.1 - Peritoneal abscess Status: Acute Assessment and Plan: Ileus seems to be resolving. She is tolerating diet and having bowel movements which are now becoming a little more solid. Continue IV antibiotics. [place] [address] [address] scan abdomen pelvis with IV contrast tomorrow to evaluate if the abscess has been adequately drained. Culture results on the abscess drainage are still pending. Continue present supportive management. Subjective Date/time seen: 12/07/23 09:25 Interval history: Patient is doing okay today. Up walking in the room in hallways. Having bowel movements since starting get a little bit of formed her bowel movements. Eating solid food but not a lot. [place] [address] to [address] today. Output from the drains continues to be purulent. Volume output from the drain is markedly decreased. No fevers or chills. Exam GI: Other: Abdomen is soft and nondistended. Midline incision healing without redness or drainage. Grady in place. Left-sided IR placed drain site is clean and dry. Expected mild tenderness around the drain site. Objective Data Vital Signs Vital Signs: Vital Signs - 24 hr 12/06/23 14:00 12/06/23 17:59 12/06/23 20:55 Temperature 36.6 C 37.9 C H 36.8 C Pulse Rate 82 104 H Respiratory Rate 16 13 Blood Pressure 112/62 112/71 Pulse Oximetry 96 96 Oxygen Delivery 12/06/23 19:00 12/06/23 20:00 12/07/23 05:26 Temperature 37.2 C 36.6 C Pulse Rate 102 H Respiratory Rate 18 Blood Pressure 121/71 Pulse Oximetry 94 Oxygen Delivery Room Air 12/07/23 05:23 12/07/23 05:43 12/07/23 06:43 Temperature 36.7 C 37.0 C 37.1 C Pulse Rate 102 H 100 105 H Respiratory Rate 12 17 16 Blood Pressure 111/59 L 142/79 H 132/76 Pulse Oximetry 95 96 99 Oxygen Delivery 12/07/23 07:41 12/07/23 07:44 Temperature 37.0 C 37.7 C H Pulse Rate 105 H Respiratory Rate 18 Blood Pressure 124/69 Pulse Oximetry 97 Oxygen Delivery Intake/Output Intake/Output: Intake & Output 12/04/23 12/05/23 12/06/23 12/07/23 23:59 23:59 23:59 23:59 Intake Total 2809.2 2778 2390 850 Output Total 1340 300 Balance 1469.2 2478 2390 850 Meds/Results Medications: Active Medications Generic Name Dose Route Start Last Admin Trade Name Freq PRN Reason Stop Dose Admin Acetaminophen 650 mg 11/28/23 21:16 12/06/23 17:59 Acetaminophen 325 Mg Tablet PO 650 mg Q4H PRN Administration Fever Hydrocodone Bitart/Acetaminophen 1 tab 11/26/23 20:00 11/28/23 11:07 Hydrocodone/Acetaminophen (*Crx) 5-325 Mg Tablet PO 1 tab Q3H PRN Administration Pain Rated 5 or Less Hydrocodone Bitart/Acetaminophen 1 tab 11/26/23 20:00 12/07/23 03:53 Hydrocodone/Acetaminophen (*Crx) 10-325 Mg Tablet PO 1 tab Q3H PRN Administration Pain Rated 6 or Greater Alteplase, Recombinant 2 mg 12/07/23 02:48 12/07/23 05:19 Alteplase 2 Mg Vial (Cathflo) IV PUSH 2 mg ONCE PRN Administration Line Occlusion Amitriptyline HCl 25 mg 11/26/23 21:00 12/06/23 20:17 Amitriptyline Hcl 25 Mg Tablet PO 25 mg QHS BRIANA Administration Amlodipine Besylate 5 mg 11/26/23 21:00 12/06/23 20:17 Amlodipine Besylate 5 Mg Tablet PO 5 mg HS BRIANA Administration Enoxaparin Sodium 30 mg 11/27/23 09:00 12/05/23 07:51 Enoxaparin 30 Mg/0.3 Ml Syringe SUB-Q 30 mg Q12HR BRIANA Administration Cefepime HCl 2 gm in 50 mls @ 100 mls/hr 12/05/23 16:00 12/07/23 03:54 Maxipime 2 Gm/Ns 50 Ml IVPB 100 mls/hr Q12H BRIANA Administration Sodium Chloride 250 mls @ 30 mls/hr 12/07/23 04:37 12/07/23 05:21 Normal Saline Iv IV CONT 12/07/23 12:56 30 mls/hr .Q8H20M STA Administration Vancomycin HCl 2,000 mg in 500 mls @ 250 mls/hr 12/07/23 06:00 12/07/23 08:22 Vancomycin 2,000 Mg/Ns 500 Ml IVPB
[2023-12-07 10:21] LABS: Hematocrit 24.1 % (37.0-47.0); Hemoglobin 7.8 g/dL (12.0-15.0)
[2023-12-07 10:26] LABS: IFOB Positive Control Positive; Immunochemical Fecal Occult Bl Positive (N)
--- NOTE | 2023-12-07 11:19 | PM.GYNPNOP ---
TELEVISION EQUIPMENT OPERATOR - A/P Assessment and plan (1) Intra-abdominal abscess: Code(s): K65.1 - Peritoneal abscess Status: Acute (2) Encounter for postoperative care: Code(s): Z48.89 - Encounter for other specified surgical aftercare Status: Acute Plan 43-year-old female who is postoperative day number 10 from open left oophorectomy. Complicated by intraoperative hemorrhage. Postoperative course been complicated by ileus, fever, marked anemia, pelvic abscess. Receiving antibiotics, drain placed an abscess, resolving white count and fever. Resolved ileus. Anemia -received blood unit today. Single unit. Procedure blood previously during this stay. To remove henri tomorrow with wound care Marek tomorrow also. Concerned about the wound at the lower part of the pannus. Postoperative Procedures: Procedures Operation Date: 11/26/23 12:30 Actual Procedure Side Surgeon p Open Left Salpingo-Oophorectomy, Repair of arteries and vein for intraoperative hemorrhage, extensive adhesiolysis Left Clyde Lopez MD Postoperative day: 1 Postoperative status: doing well and other (Tollerating Regular Diet) Postoperative plan: routine post-op care and discharge Time Spent With Patient Time: Total time spent is greater than 50% in coordination of care (as documented) at patient's floor/unit and/or counseling patient: Time with patient: 15 - 25 minutes TELEVISION EQUIPMENT OPERATOR- PN:Rachna Post-Op Subjective Date/time seen: 12/07/23 11:19 Ambulating, denies nausea, vomiting, fever, chills. Bowel movements. Denies chest pain or shortness of breath. Received blood today, improving white count. Interval history: Patient is doing okay today. Up walking in the room in hallways. Having bowel movements since starting get a little bit of formed her bowel movements. Eating solid food but not a lot[place] [address] to [address] today. Output from the drains continues to be purulent. Volume output from the drain is markedly decreased. No fevers or chills. Subjective: patient reports feeling better, pain is well controlled and patient is tolerating oral intake Exam Const: General: cooperative, healthy appearing, comfortable and no acute distress Resp: Auscultation: no crackles, no rales, no rhonchi and no wheezes Cardio: Rhythm: regular rhythm Heart sounds: no click and no murmurs GI: Inspection: non-distended Auscultation: normal bowel sounds Other: Incisions - CDI , indurated area at the dependent part pannus. Some erythema. Extrem: General: normal to inspection, no pedal edema and no calf tenderness TELEVISION EQUIPMENT OPERATOR - PN: Obj Data Vital Signs Vital Signs: Vital Signs - 24 hr 12/06/23 14:00 12/06/23 17:59 12/06/23 20:55 Temperature 98 F 100.3 F H 98.2 F Pulse Rate 82 104 H Respiratory Rate 16 13 Blood Pressure 112/62 112/71 Pulse Oximetry 96 96 Oxygen Delivery 12/06/23 19:00 12/06/23 20:00 12/07/23 05:26 Temperature 98.9 F 97.8 F Pulse Rate 102 H Respiratory Rate 18 Blood Pressure 121/71 Pulse Oximetry 94 Oxygen Delivery Room Air 12/07/23 05:23 12/07/23 05:43 12/07/23 06:43 Temperature 98.1 F 98.6 F 98.8 F Pulse Rate 102 H 100 105 H Respiratory Rate 12 17 16 Blood Pressure 111/59 L 142/79 H 132/76 Pulse Oximetry 95 96 99 Oxygen Delivery 12/07/23 07:41 12/07/23 07:44 Temperature 98.6 F 99.8 F H Pulse Rate 105 H Respiratory Rate 18 Blood Pressure 124/69 Pulse Oximetry 97 Oxygen Delivery Intake/Output Intake/Output: Intake & Output 12/04/23 12/05/23 12/06/23 12/07/23 23:59 23:59 23:59 23:59 Intake Total 2809.2 2778 2390 1468 Output Total 1340 300 Balance 1469.2 2478 2390 1468 Meds/Results Medications: Active Medications Generic Name Dose Route Start Last Admin Trade Name Freq PRN Reason Stop Dose Admin Acetaminophen 650 mg 11/28/23 21:16 12/06/23 17:59 Acetaminophen 325 Mg Tablet PO 650 mg Q4H PRN Administration Fever Hydrocodone
[2023-12-07] MEDS: AMITRIPTYLINE HCL 25 MG TABLET PO (20:16)
[2023-12-07] MEDS: amLODIPine BESYLATE 5 MG TABLET PO (20:18)
[2023-12-07] MEDS: lamoTRIgine 25 MG TABLET 50 MG PO (20:19)
[2023-12-07] MEDS: LORATADINE 10 MG TABLET PO (20:19)
[2023-12-07] MEDS: lamoTRIgine 100 MG TABLET PO (20:19)
--- NOTE | 2023-12-07 22:27 | PC.NURSE ---
Pt has been having copius amounts of drainage from the lower half of the midline incision since approximately 1900. The dressings have been changed and reinforced with ABD pads repeatedly. Pt is soaking through the gauze and ABD pads approximately every hour. Dr. Wen, the consulting surgeon and on-call surgeon was notified of the aforementioned change in pt's condition at 2224. Per Dr. Wen, we are to continue to change the dressing as needed until he addresses the situation in the morning (12/08/23) to keep the skin as dry as possible.
[2023-12-08] VITALS (13 sets, daily range): BP systolic 115–133; BP diastolic 66–74; PULSE 98–110; RESP 18–22; TEMP 36.4–39.1; O2SAT 97–98
[2023-12-08] MEDS: ACETAMINOPHEN 325 MG TABLET 650 MG PO ×3 (01:53→21:00)
[2023-12-08] MEDS: CEFEPIME 2 GM/NS 50 ML 2 GM/50 ML BAG IVPB ×2 (04:36→15:57)
[2023-12-08] MEDS: metroNIDAZOLE 500 MG TABLET PO ×3 (05:10→21:00)
[2023-12-08] MEDS: CENTRAL LINE FLUSH 10 ML IV PUSH ×3 (05:10→21:01)
[2023-12-08] MEDS: MORPHINE SULFATE (*CRX) 4 MG/ML INJ IV PUSH (05:10)
[2023-12-08] MEDS: VANCOMYCIN 2,000 MG/NS 500 ML 2,000 MG/500 ML BAG 250 MG IVPB (05:11)
--- NOTE | 2023-12-08 06:36 | PC.NURSE ---
Labs due at 0500. Lab did not send required supplies to draw off PICC until 0636.
[2023-12-08] MEDS: HYDROcodone/acetaminophen (*CRX) 10-325 MG TABLET 1 TAB PO ×3 (06:50→12:49)
[2023-12-08 06:57] LABS: Hematocrit 25.2 % (37.0-47.0); Hemoglobin 7.8 g/dL (12.0-15.0); Mean Corpuscular Hemoglobin 28.2 pg (26-34); Mean Platelet Volume 9.7 fl (7.4-10.4); Platelet Count Result 406 k/mm3 (150-375); Red Blood Count 2.77 M/mm3 (4.2-5.4); Red Cell Distribution Width 15.9 % (11.5-14.5); White Blood Count 9.1 K/mm3 (4.5-10.0)
[2023-12-08 07:09] LABS: Anion Gap 5 mmol/L (4-12); Blood Urea Nitrogen 7 mg/dL (7-17); Calcium 7.7 mg/dL (8.4-10.2); Carbon Dioxide 25 mmol/L (22-30); Chloride 103 mmol/L (98-107); Estimated CRCL calculation 94 ml/min; Estimated Glomerular Filt Rate > 60; Glucose 103 mg/dL (65-110); Magnesium 2.1 mg/dL (1.6-2.3); Potassium 3.8 mmol/L (3.4-5.0); Sodium 133 mmol/L (137-145)
[2023-12-08] MEDS: PANTOPRAZOLE SODIUM IV 40 MG VIAL IV PUSH (08:20)
[2023-12-08] MEDS: SIMETHICONE 80 MG TAB.CHEW PO ×2 (08:21→11:10)
[2023-12-08] MEDS: MULTIVITAMINS THERAPEUTIC TAB (*BKC) 1 TABLET PO (08:21)
--- NOTE | 2023-12-08 12:00 | PM.PNGS ---
Progress Note: A&P Assessment and Plan (1) Intra-abdominal abscess: Code(s): K65.1 - Peritoneal abscess Status: Acute Assessment and Plan: will repeat CT, will likely need wound opened up and possible vac, cont abx and local wound care for now, cont drain Subjective Subjective Date/Time Seen: 12/08/23 12:00 Interval history: feels better, purulent drainage from incision, drain c minimal output Review of Systems Review of Systems: All systems reviewed & are unremarkable except as noted in HPI and below Exam Const: General: cooperative, comfortable and no acute distress Resp: Auscultation: clear to auscultation bilaterally Cardio: Rate: regular rate Rhythm: regular rhythm GI: Inspection: normal to inspection and incision GI Palp: Yes abdominal tenderness, Yes Soft to palpation and Yes Tenderness to palpation present (GI) Other: no drainage from incision currently, minimal output from drain Objective Data Vital Signs Vital Signs: Vital Signs - 24 hr 12/07/23 14:00 12/07/23 20:40 12/07/23 21:00 Temperature 36.8 C 36.7 C 36.9 C Pulse Rate 101 H 96 Respiratory Rate 16 16 Blood Pressure 106/62 116/76 Pulse Oximetry 97 100 Oxygen Delivery 12/07/23 20:20 12/08/23 01:53 12/08/23 02:50 Temperature 36.9 C 36.6 C Pulse Rate Respiratory Rate Blood Pressure Pulse Oximetry Oxygen Delivery Room Air 12/08/23 04:48 12/08/23 11:03 Temperature 36.4 C 37.5 C Pulse Rate 98 Respiratory Rate 18 Blood Pressure 115/74 Pulse Oximetry 98 Oxygen Delivery Intake/Output Intake/Output: Intake & Output 12/05/23 12/06/23 12/07/23 12/08/23 23:59 23:59 23:59 23:59 Intake Total 9808 2390 2808 50 Output Total 300 5 Balance 0218 2390 2803 50 Meds/Results Medications: Active Medications Generic Name Dose Route Start Last Admin Trade Name Freq PRN Reason Stop Dose Admin Acetaminophen 650 mg 11/28/23 21:16 12/08/23 01:53 Acetaminophen 325 Mg Tablet PO 650 mg Q4H PRN Administration Fever Hydrocodone Bitart/Acetaminophen 1 tab 11/26/23 20:00 11/28/23 11:07 Hydrocodone/Acetaminophen (*Crx) 5-325 Mg Tablet PO 1 tab Q3H PRN Administration Pain Rated 5 or Less Hydrocodone Bitart/Acetaminophen 1 tab 11/26/23 20:00 12/08/23 10:17 Hydrocodone/Acetaminophen (*Crx) 10-325 Mg Tablet PO 1 tab Q3H PRN Administration Pain Rated 6 or Greater Alteplase, Recombinant 2 mg 12/07/23 02:48 12/07/23 05:19 Alteplase 2 Mg Vial (Cathflo) IV PUSH 2 mg ONCE PRN Administration Line Occlusion Amitriptyline HCl 25 mg 11/26/23 21:00 12/07/23 20:16 Amitriptyline Hcl 25 Mg Tablet PO 25 mg QHS BRIANA Administration Amlodipine Besylate 5 mg 11/26/23 21:00 12/07/23 20:18 Amlodipine Besylate 5 Mg Tablet PO 5 mg HS BRIANA Administration Enoxaparin Sodium 30 mg 11/27/23 09:00 12/05/23 07:51 Enoxaparin 30 Mg/0.3 Ml Syringe SUB-Q 30 mg Q12HR BRIANA Administration Cefepime HCl 2 gm in 50 mls @ 100 mls/hr 12/05/23 16:00 12/08/23 05:14 Maxipime 2 Gm/Ns 50 Ml IVPB Infused Q12H BRIANA Infusion Vancomycin HCl 2,000 mg in 500 mls @ 250 mls/hr 12/07/23 06:00 12/08/23 05:11 Vancomycin 2,000 Mg/Ns 500 Ml IVPB 250 mls/hr Q12H BRIANA Administration Lamotrigine 100 mg 11/26/23 21:00 12/07/23 20:19 Lamotrigine 100 Mg Tablet PO 100 mg HS BRIANA Administration Lamotrigine 50 mg 11/26/23 21:00 12/07/23 20:19 Lamotrigine 25 Mg Tablet PO 50 mg HS BRIANA Administration Loratadine 10 mg 11/26/23 20:07 12/07/23 20:19 Loratadine 10 Mg Tablet PO 10 mg HS PRN Administration Allergy Symptoms Losartan Potassium 50 mg 11/27/23 09:00 11/28/23 08:21 Losartan Potassium 50 Mg Tablet PO 50 mg QAM BRIANA Administration Metoclopramide HCl 10 mg 11/26/23 20:00 12/04/23 13:03 Metoclopramide Hcl Inj 10 Mg/2 Ml Vial IV PUSH 10 mg Q6H PRN Administration Nausea
--- NOTE | 2023-12-08 13:04 | PM.IMPN ---
Progress Note: A&P Assessment and Plan (1) Postoperative fever: Code(s): R50.82 - Postprocedural fever Status: Resolved (2) Postoperative ileus: Code(s): K91.89 - Other postprocedural complications and disorders of digestive system; K56.7 - Ileus, unspecified Status: Acute (3) Tachycardia: Code(s): R00.0 - Tachycardia, unspecified Status: Acute (4) Intra-abdominal bleeding: Code(s): R58 - Hemorrhage, not elsewhere classified Status: Acute (5) Left ovarian cyst: Code(s): N83.202 - Unspecified ovarian cyst, left side Status: Chronic (6) Protein-calorie malnutrition, moderate: Code(s): E44.0 - Moderate protein-calorie malnutrition Status: Acute (7) UTI (urinary tract infection): Code(s): N39.0 - Urinary tract infection, site not specified Status: Acute (8) Sepsis: Code(s): A41.9 - Sepsis, unspecified organism Status: Acute (9) Hypoxia: Code(s): R09.02 - Hypoxemia Status: Acute Plan 43-year-old female with a past medical history anxiety and depression, diverticulitis, complicated hernia repair with postop PE now off of anticoagulation, hypertension, hyperlipidemia, sleep apnea, obesity, seizures (absent type), presented on 11/25 for surgical management of a 5 cm left ovarian cyst that had been causing pelvic pain.? Surgery initially attempted laparoscopically but became complicated by adhesions and intra-abdominal bleeding.? Surgery converted to a low transverse incision.? General surgeon joint the case to help assist bleeding control and urology as well to help identify the left ureter. Postop day 2 wound VAC applied to the lower transverse incision, wound VAC since removed.? Due to chills/rigors/worsening tachycardia antibiotics were escalated to meropenem and vancomycin.? Cardiology consulted and felt tachycardia is a physiologic response.?CTA chest abdomen pelvis did not demonstrate pulmonary embolism.?During this time she was transferred to ICU and found to also have developed postop ileus.? On 11/28 NG tube placed for decompression evacuating large amount of dark green gastric content. She has since been referred out of the ICU and NG to removed she is tolerating diet. Postop ileus resolved. However she remained tachycardic and also due to leukocytosis and fever repeat CT abdomen pelvis was performed which demonstrated a large intra abdominal abscess. On December [address]-guided percutaneous abscess drain placement with good pus removal. Postoperative fever/sepsis -likely due to the intra-abdominal abscess. -fever has resolved and tachycardia is coming down. -she had diarrhea after beginning to tolerate diet. 12/06 she reports that is becoming more formed. C diff negative. Intra-abdominal abscess -repeat CT abdomen pelvis on 12/04 due to tachycardia and fever. Revealed an abscess measuring approximately 13.4 x 12.6 x 14.6 cm. -status post percutaneous drain placement on 12/04. Output since 300 mL of purulent fluid. -management of this per General surgery and Ob Gyne -currently on cefepime metronidazole and vancomycin. Follow-up abscess culture. Sinus tachycardia -was up in the 150s postop. Now coming down since the abscess drain was placed. -Cardiology previously consulted, felt due to physiologic sinus tachycardia. Postoperative ileus -TPN started via PICC line on 11/29. TPN since discontinued, NG tube removed as well and she is tolerating diet. -continue to manage per General surgery recommendations. Continue to ambulate which she is doing well with Intra-abdominal hemorrhage and postop anemia -baseline hemoglobin in the 10s-11's. Receive 1 unit PRBC postop. Received another on 12/04 another on 12/06. -she was scheduled for a colonoscopy on the . She does not remember who she was scheduled with. This was because she reported blood in her diarrhea which is now resolved. -anemia is multifactorial however
--- NOTE | 2023-12-08 18:40 | PM.GYNPNOP ---
DIGITAL ARCHIVIST - A/P Assessment and plan (1) Encounter for postoperative care: Code(s): Z48.89 - Encounter for other specified surgical aftercare Status: Acute Plan 12/08/23 18:40 Spoke with General surgery regarding patient. Consideration of placing a different drain in the abscess For better function. To likely transfer to tertiary care center. Medicine to restart TPN. Female this afternoon. Mildly reduced size abscess cavity. Patient reports drainage from the incision site. Postoperative Procedures: Procedures Operation Date: 11/26/23 12:30 Actual Procedure Side Surgeon p Open Left Salpingo-Oophorectomy, Repair of arteries and vein for intraoperative hemorrhage, extensive adhesiolysis Left Clyde Lopez MD Time Spent With Patient Time: Total time spent is greater than 50% in coordination of care (as documented) at patient's floor/unit and/or counseling patient: Time with patient: less than 15 minutes DIGITAL ARCHIVIST- PN:Rachna Post-Op Subjective Date/time seen: 12/08/23 18:40 Spoke with General surgery regarding patient. Consideration of placing a different drain in the abscess For better function. To likely transfer to tertiary care center. Medicine to restart TPN. Female this afternoon. Mildly reduced size abscess cavity. Patient reports drainage from the incision site. Interval history: No acute overnight events. Patient reports the left lower quadrant pain has resolved but there is more pulling pain at the lower pannus. She reports there was drainage there is well. DIGITAL ARCHIVIST - PN: Obj Data Vital Signs Vital Signs: Vital Signs - 24 hr 12/07/23 20:40 12/07/23 21:00 12/07/23 20:20 Temperature 98.1 F 98.4 F Pulse Rate 96 Respiratory Rate 16 Blood Pressure 116/76 Pulse Oximetry 100 Oxygen Delivery Room Air 12/08/23 01:53 12/08/23 02:50 12/08/23 04:48 Temperature 98.4 F 97.8 F 97.6 F Pulse Rate 98 Respiratory Rate 18 Blood Pressure 115/74 Pulse Oximetry 98 Oxygen Delivery 12/08/23 11:03 12/08/23 14:00 12/08/23 16:51 Temperature 99.5 F 97.8 F 102.4 F H Pulse Rate 105 H Respiratory Rate 22 H Blood Pressure 121/68 Pulse Oximetry 98 Oxygen Delivery 12/08/23 17:01 12/08/23 18:01 Temperature 102.4 F H 99.9 F H Pulse Rate Respiratory Rate Blood Pressure Pulse Oximetry Oxygen Delivery Intake/Output Intake/Output: Intake & Output 12/05/23 12/06/23 12/07/23 12/08/23 23:59 23:59 23:59 23:59 Intake Total 2778 2390 2808 600 Output Total 300 5 Balance 2478 2390 2803 600 Meds/Results Medications: Active Medications Generic Name Dose Route Start Last Admin Trade Name Freq PRN Reason Stop Dose Admin Acetaminophen 650 mg 11/28/23 21:16 12/08/23 17:01 Acetaminophen 325 Mg Tablet PO 650 mg Q4H PRN Administration Fever Hydrocodone Bitart/Acetaminophen 1 tab 11/26/23 20:00 11/28/23 11:07 Hydrocodone/Acetaminophen (*Crx) 5-325 Mg Tablet PO 1 tab Q3H PRN Administration Pain Rated 5 or Less Hydrocodone Bitart/Acetaminophen 1 tab 11/26/23 20:00 12/08/23 12:49 Hydrocodone/Acetaminophen (*Crx) 10-325 Mg Tablet PO 1 tab Q3H PRN Administration Pain Rated 6 or Greater Alteplase, Recombinant 2 mg 12/07/23 02:48 12/07/23 05:19 Alteplase 2 Mg Vial (Cathflo) IV PUSH 2 mg ONCE PRN Administration Line Occlusion Amitriptyline HCl 25 mg 11/26/23 21:00 12/07/23 20:16 Amitriptyline Hcl 25 Mg Tablet PO 25 mg QHS BRIANA Administration Amlodipine Besylate 5 mg 11/26/23 21:00 12/07/23 20:18 Amlodipine Besylate 5 Mg Tablet PO 5 mg HS BRIANA Administration Enoxaparin Sodium 30 mg 11/27/23 09:00 12/05/23 07:51 Enoxaparin 30 Mg/0.3 Ml Syringe SUB-Q 30 mg Q12HR BRIANA Administration Cefepime HCl 2 gm in 50 mls @ 100 mls/hr 12/05/23 16:00 12/08/23 16:27 Maxipime 2 Gm/Ns 50 Ml IVPB Infused Q12H BRIANA Infusion Dextrose 1,000 mls @ 50 mls/hr 12/08/23 18:25
[2023-12-08] MEDS: AMINO ACIDS 5%/D15W/E-LYTES/CA 2,000 ML with MULTIVITAMINS-12 INJ VIAL 1 2.5 ML, MULTIV... 40 ML IV CONT (19:32)
[2023-12-08] MEDS: FAT EMULSIONS IV 20% 250 ML 20.83 ML IVPB (19:33)
[2023-12-08] MEDS: lamoTRIgine 25 MG TABLET 50 MG PO (21:00)
[2023-12-08] MEDS: lamoTRIgine 100 MG TABLET PO (21:00)
[2023-12-08] MEDS: amLODIPine BESYLATE 5 MG TABLET PO (21:00)
[2023-12-08] MEDS: AMITRIPTYLINE HCL 25 MG TABLET PO (21:00)
[2023-12-08 21:27] LABS: Hematocrit 23.3 % (37.0-47.0); Hemoglobin 7.5 g/dL (12.0-15.0); Mean Corpuscular HGB Conc 32.2 g/dl (32-36); Mean Corpuscular Hemoglobin 29.1 pg (26-34); Mean Corpuscular Volume 90.3 fl (80-100); Mean Platelet Volume 9.4 fl (7.4-10.4); Platelet Count Result 472 k/mm3 (150-375); Red Blood Count 2.58 M/mm3 (4.2-5.4); Red Cell Distribution Width 15.9 % (11.5-14.5); White Blood Count 8.7 K/mm3 (4.5-10.0)
[2023-12-08 21:38] LABS: Alanine Aminotransferase 63 U/L (6-35); Albumin Level 3.2 g/dL (3.5-5.1); Alkaline Phosphatase 153 U/L (38-126); Anion Gap 4 mmol/L (4-12); Aspartate Amino Transferase 37 U/L (14-36); Bilirubin,Total 0.7 mg/dL (0.2-1.3); Blood Urea Nitrogen 9 mg/dL (7-17); Calcium 7.9 mg/dL (8.4-10.2); Carbon Dioxide 26 mmol/L (22-30); Chloride 102 mmol/L (98-107); Estimated CRCL calculation 94 ml/min; Estimated Glomerular Filt Rate > 60; Glucose 104 mg/dL (65-110); Magnesium 2.1 mg/dL (1.6-2.3); Potassium 3.7 mmol/L (3.4-5.0); Sodium 132 mmol/L (137-145)
[2023-12-08 21:39] LABS: Partial Thromboplastin Time 34.8 Seconds (22.3-36.8)
[2023-12-08 21:44] LABS: Transferrin 124 mg/dL (206-381)
[2023-12-08 21:48] LABS: Band Neutrophils Percent 11 % (0-6); Eosinophils Absolute Manual 0.17 K/mm3 (0.02-0.50); Eosinophils Percent Manual 2 % (0-4); Lymphocytes Absolute Manual 1.56 K/mm3 (1.1-4.5); Neutrophils Absolute Manual 6.96 K/mm3 (1.7-7.2); Neutrophils Percent Manual 69 % (46-73); Platelet Estimate Increased (Adequate); Total Cells Counted 100
[2023-12-08 21:49] LABS: Anisocytosis 1+; Schistocytes None Seen
[2023-12-09 00:27] LABS: Glucose Point of Care 107 mg/dl (65-105)
[2023-12-09] MEDS: HYDROcodone/acetaminophen (*CRX) 10-325 MG TABLET 1 TAB PO ×3 (01:17→21:34)
[2023-12-09 04:45] VITALS: BP 126/80; PULSE 97; RESP 18; TEMP 37.8; O2SAT 98
[2023-12-09] MEDS: CEFEPIME 2 GM/NS 50 ML 2 GM/50 ML BAG IVPB ×2 (05:17→16:31)
[2023-12-09] MEDS: ACETAMINOPHEN 325 MG TABLET 650 MG PO ×2 (05:18→18:00)
[2023-12-09] MEDS: metroNIDAZOLE 500 MG TABLET PO ×3 (05:18→21:59)
[2023-12-09 06:18] VITALS: TEMP 37.3
[2023-12-09 06:19] LABS: Glucose Point of Care 122 mg/dl (65-105)
[2023-12-09 06:40] VITALS: TEMP 37.3
[2023-12-09 06:44] LABS: Hematocrit 24.5 % (37.0-47.0); Hemoglobin 7.4 g/dL (12.0-15.0); Mean Corpuscular HGB Conc 30.2 g/dl (32-36); Mean Corpuscular Hemoglobin 28.1 pg (26-34); Mean Corpuscular Volume 93.2 fl (80-100); Mean Platelet Volume 9.6 fl (7.4-10.4); Platelet Count Result 509 k/mm3 (150-375); Red Blood Count 2.63 M/mm3 (4.2-5.4)
[2023-12-09 06:52] LABS: Anion Gap 4 mmol/L (4-12); Blood Urea Nitrogen 9 mg/dL (7-17); Calcium 7.8 mg/dL (8.4-10.2); Carbon Dioxide 29 mmol/L (22-30); Chloride 102 mmol/L (98-107); Estimated CRCL calculation 104 ml/min; Estimated Glomerular Filt Rate > 60; Glucose 121 mg/dL (65-110); Magnesium 2.2 mg/dL (1.6-2.3); Phosphorus 3.8 mg/dL (2.5-4.5); Potassium 3.6 mmol/L (3.4-5.0); Sodium 135 mmol/L (137-145)
[2023-12-09] MEDS: CENTRAL LINE FLUSH 10 ML IV PUSH ×3 (06:59→22:00)
[2023-12-09] MEDS: MULTIVITAMINS THERAPEUTIC TAB (*BKC) 1 TABLET PO (08:20)
[2023-12-09] MEDS: PANTOPRAZOLE SODIUM IV 40 MG VIAL IV PUSH (08:21)
[2023-12-09] MEDS: SIMETHICONE 80 MG TAB.CHEW PO ×3 (08:21→16:30)
--- NOTE | 2023-12-09 08:30 | PM.GYNPNOP ---
GEOPHYSICAL PROSPECTOR - A/P Assessment and plan (1) Postoperative fever: Code(s): R50.82 - Postprocedural fever Status: Resolved (2) Intra-abdominal abscess: Code(s): K65.1 - Peritoneal abscess Status: Acute (3) Encounter for postoperative care: Code(s): Z48.89 - Encounter for other specified surgical aftercare Status: Acute Plan 12/09/23 08:30 patient sitting up, talking to family, appears well, copious discharge from her wound. Discussed with Wound Care - they are going to evaluate. Mostly afebrile, with one temp of a 100.5?, in the last 12 hours. Normal white count. Little output from abscess drain. Surgery considering transfer for bowel perforation the area of the rectum. Postoperative Procedures: Procedures Operation Date: 11/26/23 12:30 Actual Procedure Side Surgeon p Open Left Salpingo-Oophorectomy, Repair of arteries and vein for intraoperative hemorrhage, extensive adhesiolysis Left Clyde Lopez MD Time Spent With Patient Time: Total time spent is greater than 50% in coordination of care (as documented) at patient's floor/unit and/or counseling patient: Time with patient: less than 15 minutes GEOPHYSICAL PROSPECTOR- PN:Subj Post-Op Subjective Date/time seen: 12/09/23 08:30 patient sitting up, talking to family, appears well, copious discharge from her wound. Discussed with Wound Care - they are going to evaluate. Mostly afebrile, with one temp of a 100.5?, in the last 12 hours. Normal white count. Little output from abscess drain. Surgery considering transfer for bowel perforation the area of the rectum. Interval history: No acute overnight events. Patient reports the left lower quadrant pain has resolved but there is more pulling pain at the lower pannus. She reports there was drainage there is well. GEOPHYSICAL PROSPECTOR - PN: Obj Data Vital Signs Vital Signs: Vital Signs - 24 hr 12/08/23 11:03 12/08/23 14:00 12/08/23 16:51 Temperature 99.5 F 97.8 F 102.4 F H Pulse Rate 105 H Respiratory Rate 22 H Blood Pressure 121/68 Pulse Oximetry 98 12/08/23 17:01 12/08/23 18:01 12/08/23 21:00 Temperature 102.4 F H 99.9 F H 100.8 F H Pulse Rate Respiratory Rate Blood Pressure Pulse Oximetry 12/08/23 20:00 12/08/23 22:00 12/08/23 23:20 Temperature 100.8 F H 100.7 F H 99.2 F Pulse Rate 110 H Respiratory Rate 18 Blood Pressure 133/66 Pulse Oximetry 97 12/08/23 22:10 12/09/23 04:45 12/09/23 06:40 Temperature 100.7 F H 100.0 F H 99.1 F Pulse Rate 97 Respiratory Rate 18 Blood Pressure 126/80 Pulse Oximetry 98 12/09/23 06:18 Temperature 99.2 F Pulse Rate Respiratory Rate Blood Pressure Pulse Oximetry Intake/Output Intake/Output: Intake & Output 12/06/23 12/07/23 12/08/23 12/09/23 23:59 23:59 23:59 23:59 Intake Total 2390 2808 600 55 Output Total 5 Balance 2390 2803 600 55 Meds/Results Medications: Active Medications Generic Name Dose Route Start Last Admin Trade Name Freq PRN Reason Stop Dose Admin Acetaminophen 650 mg 11/28/23 21:16 12/09/23 05:18 Acetaminophen 325 Mg Tablet PO 650 mg Q4H PRN Administration Fever Hydrocodone Bitart/Acetaminophen 1 tab 11/26/23 20:00 11/28/23 11:07 Hydrocodone/Acetaminophen (*Crx) 5-325 Mg Tablet PO 1 tab Q3H PRN Administration Pain Rated 5 or Less Hydrocodone Bitart/Acetaminophen 1 tab 11/26/23 20:00 12/09/23 08:20 Hydrocodone/Acetaminophen (*Crx) 10-325 Mg Tablet PO 1 tab Q3H PRN Administration Pain Rated 6 or Greater Alteplase, Recombinant 2 mg 12/07/23 02:48 12/07/23 05:19 Alteplase 2 Mg Vial (Cathflo) IV PUSH 2 mg ONCE PRN Administration Line Occlusion Amitriptyline HCl 25 mg 11/26/23 21:00 12/08/23 21:00 Amitriptyline Hcl 25 Mg Tablet PO 25 mg QHS BRIANA Administration Amlodipine Besylate 5 mg 11/26/23 21:00 12/08/23 21:00 Amlodipine Besylate 5 Mg Tablet PO 5 mg HS BRIANA Administration Enoxapari
--- NOTE | 2023-12-09 12:03 | PCNFU ---
Nutrition Follow-Up Complete: Inadequate po intake related to NPO diet orders as evidenced by need for alternative nutrition support Goal:Meet estimated needs, advance to PO intake Pt current nutrition is NPO, TPN @ 40ml/hr with lipids. Nutrition recommendation: Advance diet PO when appropriate Last recorded weight is 114.2 kg. Bowel Motility: +BM 12/06 Labs Reviewed: Hgb:7.4, HCT:24.5, NA:135 Meds Noted: insulin, reglan, zofran, protonix Skin: incision Additional Notes: Pt was on a diet, is now NPO again, TPN continues at 40ml/hr provinding 1182kcals, 48g protein per day. This is meeting 71% of estimated energy needs, 73% of protein needs. Recommend to resume PO diet when appropriate. Monitor TPN, labs, wt. Follow up every Friday and Friday.
[2023-12-09 12:04] LABS: Glucose Point of Care 94 mg/dl (65-105)
[2023-12-09] MEDS: MORPHINE SULFATE (*CRX) 4 MG/ML INJ IV PUSH ×3 (12:20→21:59)
[2023-12-09 13:51] VITALS: BP 114/68; PULSE 95; RESP 20; TEMP 36.5; O2SAT 99
--- NOTE | 2023-12-09 15:17 | PM.PNGS ---
Progress Note: A&P Assessment and Plan (1) Intra-abdominal abscess: Code(s): K65.1 - Peritoneal abscess Status: Acute Assessment and Plan: tube upsized and draining better, wound opened as well, cont IV abx, cont bowel rest and TPN Subjective Subjective Date/Time Seen: 12/09/23 15:17 Interval history: feels ok, just anxious Review of Systems Review of Systems: All systems reviewed & are unremarkable except as noted in HPI and below Exam Const: General: cooperative, comfortable and no acute distress Resp: Auscultation: clear to auscultation bilaterally Cardio: Rate: regular rate Rhythm: regular rhythm GI: GI Palp: Yes abdominal tenderness, Yes Soft to palpation, Yes Tenderness to palpation present (GI), No Guarding due to palpation present (GI) and No Rigid due to palpation Other: inferior portion of midline opened up and purulent fluid drained, no s/s fascial dehiscence cath c copious purulent drainage Objective Data Vital Signs Vital Signs: Vital Signs - 24 hr 12/08/23 16:51 12/08/23 17:01 12/08/23 18:01 Temperature 39.1 C H 39.1 C H 37.7 C H Pulse Rate Respiratory Rate Blood Pressure Pulse Oximetry Oxygen Delivery 12/08/23 21:00 12/08/23 20:00 12/08/23 22:00 Temperature 38.2 C H 38.2 C H 38.2 C H Pulse Rate 110 H Respiratory Rate 18 Blood Pressure 133/66 Pulse Oximetry 97 Oxygen Delivery 12/08/23 23:20 12/08/23 22:10 12/09/23 04:45 Temperature 37.3 C 38.2 C H 37.8 C H Pulse Rate 97 Respiratory Rate 18 Blood Pressure 126/80 Pulse Oximetry 98 Oxygen Delivery 12/09/23 06:40 12/09/23 06:18 12/09/23 08:21 Temperature 37.3 C 37.3 C Pulse Rate Respiratory Rate Blood Pressure Pulse Oximetry Oxygen Delivery Room Air 12/09/23 13:51 Temperature 36.5 C Pulse Rate 95 Respiratory Rate 20 Blood Pressure 114/68 Pulse Oximetry 99 Oxygen Delivery Intake/Output Intake/Output: Intake & Output 12/06/23 12/07/23 12/08/23 12/09/23 23:59 23:59 23:59 23:59 Intake Total 2390 2808 600 305 Output Total 5 Balance 2390 2803 600 305 Meds/Results Medications: Active Medications Generic Name Dose Route Start Last Admin Trade Name Freq PRN Reason Stop Dose Admin Acetaminophen 650 mg 11/28/23 21:16 12/09/23 05:18 Acetaminophen 325 Mg Tablet PO 650 mg Q4H PRN Administration Fever Hydrocodone Bitart/Acetaminophen 1 tab 11/26/23 20:00 11/28/23 11:07 Hydrocodone/Acetaminophen (*Crx) 5-325 Mg Tablet PO 1 tab Q3H PRN Administration Pain Rated 5 or Less Hydrocodone Bitart/Acetaminophen 1 tab 11/26/23 20:00 12/09/23 08:20 Hydrocodone/Acetaminophen (*Crx) 10-325 Mg Tablet PO 1 tab Q3H PRN Administration Pain Rated 6 or Greater Alteplase, Recombinant 2 mg 12/07/23 02:48 12/07/23 05:19 Alteplase 2 Mg Vial (Cathflo) IV PUSH 2 mg ONCE PRN Administration Line Occlusion Amitriptyline HCl 25 mg 11/26/23 21:00 12/08/23 21:00 Amitriptyline Hcl 25 Mg Tablet PO 25 mg QHS BRIANA Administration Amlodipine Besylate 5 mg 11/26/23 21:00 12/08/23 21:00 Amlodipine Besylate 5 Mg Tablet PO 5 mg HS BRIANA Administration Enoxaparin Sodium 30 mg 11/27/23 09:00 12/05/23 07:51 Enoxaparin 30 Mg/0.3 Ml Syringe SUB-Q 30 mg Q12HR BRIANA Administration Dextrose 1,000 mls @ 50 mls/hr 12/08/23 18:25 Dextrose 10% IV CONT .Q20H PRN if PN is interrupted Multivitamins 2.5 ml/ 2,005 mls @ 40 mls/hr 12/08/23 18:25 12/08/23 19:32 Multivitamins 2.5 ml/ Amino IV CONT 40 mls/hr Acids/Electrolytes/Dextrose .Q24H BRIANA Administration Protocol Fat Emulsion Intravenous 250 mls @ 20.833 mls/hr 12/08/23 18:25 12/09/23 07:34 Lipids 20% IVPB Infused Q24H BRIANA Infusion Cefepime HCl 2 gm in 50 mls @ 100 mls/hr 12/09/23 17:00 Maxipime 2 Gm/Ns 50 Ml IVPB Q12H BRIANA Lamotrigine 100 mg 11/26/23 21:00 12/08/23 21:00
--- NOTE | 2023-12-09 16:24 | PM.IMPN ---
Progress Note: A&P Assessment and Plan (1) Postoperative fever: Code(s): R50.82 - Postprocedural fever Status: Resolved (2) Postoperative ileus: Code(s): K91.89 - Other postprocedural complications and disorders of digestive system; K56.7 - Ileus, unspecified Status: Acute (3) Tachycardia: Code(s): R00.0 - Tachycardia, unspecified Status: Acute (4) Intra-abdominal bleeding: Code(s): R58 - Hemorrhage, not elsewhere classified Status: Acute (5) Left ovarian cyst: Code(s): N83.202 - Unspecified ovarian cyst, left side Status: Chronic (6) Protein-calorie malnutrition, moderate: Code(s): E44.0 - Moderate protein-calorie malnutrition Status: Acute (7) UTI (urinary tract infection): Code(s): N39.0 - Urinary tract infection, site not specified Status: Acute (8) Sepsis: Code(s): A41.9 - Sepsis, unspecified organism Status: Acute (9) Hypoxia: Code(s): R09.02 - Hypoxemia Status: Acute Plan 43-year-old female with a past medical history anxiety and depression, diverticulitis, complicated hernia repair with postop PE now off of anticoagulation, hypertension, hyperlipidemia, sleep apnea, obesity, seizures (absent type), presented on 11/25 for surgical management of a 5 cm left ovarian cyst that had been causing pelvic pain.? Surgery initially attempted laparoscopically but became complicated by adhesions and intra-abdominal bleeding.? Surgery converted to a low transverse incision.? General surgeon joined the case to help assist bleeding control and urology as well to help identify the left ureter. The surgery was transition to a midline vertical incision. Postop day 2 wound VAC applied to the lower transverse incision, wound VAC since removed.? Due to chills/rigors/worsening tachycardia antibiotics were escalated to meropenem and vancomycin.? Cardiology consulted and felt tachycardia is a physiologic response.?CTA chest abdomen pelvis did not demonstrate pulmonary embolism.?During this time she was transferred to ICU and found to also have developed postop ileus.? On 11/28 NG tube placed for decompression evacuating large amount of dark green gastric content. She has since been referred out of the ICU and NG to removed she is tolerating diet. Postop ileus resolved. However she remained tachycardic and also due to leukocytosis and fever repeat CT abdomen pelvis was performed which demonstrated a large intra abdominal abscess. On December [address]-guided percutaneous abscess drain placement with good pus removal. Lower pannus leakage noted and on 12/[address] abdomen pelvis demonstrated a large collection of fluid and gas again, concern for perforation. On 12/08 the patient underwent a size of her abscess drain. She is on antibiotics and management per the direction of General surgery. See below: Postoperative fever/sepsis -likely due to the intra-abdominal abscess. -fever and tachycardia resolved after abscess drain was placed. Intra-abdominal abscess -12/04 CT abdomen and pelvis performed due to postop fever and tachycardia. Revealed an abscess measuring approximately 13.4 x 12.6 x 14.6 cm. Shortly after a CT-guided abscess drain was placed with an output of 300 mL of purulent fluid, flores colored. Cefepime metronidazole and vancomycin started -12/07 drainage was noted from her henri at the lower pannus. Repeat CT demonstrated 9.9 x 4.3 x 9.7 cm collection of fluid and gas in the inferior peritoneum with the pigtail drain in expected position. -12/08 CT-guided upsize of her intraperitoneal drain -culture from her 1st drain on 12/04 demonstrating E coli growth. She remains on cefepime and metronidazole, there was concern for perforation. -general surgery largely directing care. Bowel rest and TPN. Continue to appreciate recommendations Sinus tachycardia -was up in the 150s postop. Resolved status post placement of
[2023-12-09 17:48] LABS: Glucose Point of Care 115 mg/dl (65-105)
[2023-12-09 18:00] VITALS: TEMP 37.9
[2023-12-09] MEDS: AMINO ACIDS 5%/D15W/E-LYTES/CA 2,000 ML with MULTIVITAMINS-12 INJ VIAL 1 2.5 ML, MULTIV... 40 ML IV CONT (18:01)
[2023-12-09] MEDS: FAT EMULSIONS IV 20% 250 ML 20.83 ML IVPB (18:02)
[2023-12-09 18:28] LABS: Triglycerides 127 mg/dL (<150)
[2023-12-09 21:20] VITALS: BP 123/76; PULSE 93; RESP 20; TEMP 36.2; O2SAT 97
[2023-12-09] MEDS: AMITRIPTYLINE HCL 25 MG TABLET PO (21:58)
[2023-12-09] MEDS: amLODIPine BESYLATE 5 MG TABLET PO (21:58)
[2023-12-09] MEDS: lamoTRIgine 100 MG TABLET PO (21:59)
[2023-12-09] MEDS: lamoTRIgine 25 MG TABLET 50 MG PO (21:59)
[2023-12-09] MEDS: METOCLOPRAMIDE HCL INJ 10 MG/2 ML VIAL IV PUSH (21:59)
[2023-12-10 00:11] LABS: Glucose Point of Care 121 mg/dl (65-105)
[2023-12-10 03:50] VITALS: TEMP 37.1
[2023-12-10] MEDS: metroNIDAZOLE 500 MG TABLET PO ×2 (05:46→13:13)
[2023-12-10] MEDS: CEFEPIME 2 GM/NS 50 ML 2 GM/50 ML BAG IVPB ×2 (05:46→15:52)
[2023-12-10] MEDS: CENTRAL LINE FLUSH 10 ML IV PUSH ×2 (05:47→13:13)
[2023-12-10 06:05] VITALS: BP 140/81; PULSE 101; RESP 18; TEMP 37.2; O2SAT 96
[2023-12-10 06:17] LABS: Anion Gap 4 mmol/L (4-12); Blood Urea Nitrogen 8 mg/dL (7-17); Carbon Dioxide 29 mmol/L (22-30); Chloride 102 mmol/L (98-107); Estimated CRCL calculation 117 ml/min; Estimated Glomerular Filt Rate > 60; Glucose 125 mg/dL (65-110); Potassium 3.6 mmol/L (3.4-5.0); Sodium 135 mmol/L (137-145)
[2023-12-10] MEDS: SIMETHICONE 80 MG TAB.CHEW PO ×3 (08:17→15:52)
[2023-12-10] MEDS: MULTIVITAMINS THERAPEUTIC TAB (*BKC) 1 TABLET PO (08:17)
[2023-12-10] MEDS: PANTOPRAZOLE SODIUM IV 40 MG VIAL IV PUSH (08:17)
[2023-12-10] MEDS: HYDROcodone/acetaminophen (*CRX) 10-325 MG TABLET 1 TAB PO ×2 (09:21→15:52)
[2023-12-10] MEDS: MORPHINE SULFATE (*CRX) 4 MG/ML INJ IV PUSH (10:16)
--- NOTE | 2023-12-10 11:39 | PM.PNGS ---
Progress Note: A&P Assessment and Plan (1) Intra-abdominal abscess: Code(s): K65.1 - Peritoneal abscess Status: Acute Assessment and Plan: Continue to monitor perc drain. Continue IV antibiotics, bowel rest, and TPN. Incision opened up yesterday, continue local wound care with packing dressing changes. Attempting transfer to [facility]. Plan I have discussed the patient's case and plan of care with Dr. Garcia. Subjective Subjective Date/Time Seen: 12/10/23 11:39 Patient reports: no new complaints, flatus, no bowel movement and afebrile Interval history: Patient feels about the same today. She feels tired. She also reports some bilateral lower extremity swelling. Denies any significant abdominal pain, nausea, or vomiting. She received morphine this morning for her dressing change, but otherwise does not have any pain. Exam Const: General: comfortable and no acute distress Orientation/consciousness: patient oriented x3 GI: Inspection: non-distended and incision (Dressing dry and intact, recently changed by nurse) GI Palp: Yes Soft to palpation, Yes Tenderness to palpation present (GI) (Mild upper abdominal tenderness and incisional tenderness) and No Guarding due to palpation present (GI) Auscultation: normal bowel sounds Other: Percutaneous drain with scant purulent drainage Extrem: General: edema bilateral (1-2+ pedal edema) Objective Data Vital Signs Vital Signs: Vital Signs - 24 hr 12/09/23 13:51 12/09/23 18:00 12/09/23 21:20 Temperature 97.7 F 100.2 F H 97.2 F L Pulse Rate 95 93 Respiratory Rate 20 20 Blood Pressure 114/68 123/76 Pulse Oximetry 99 97 Oxygen Delivery 12/09/23 20:00 12/10/23 03:50 12/10/23 06:05 Temperature 98.8 F 98.9 F Pulse Rate 101 H Respiratory Rate 18 Blood Pressure 140/81 Pulse Oximetry 96 Oxygen Delivery Room Air 12/10/23 08:17 Temperature Pulse Rate Respiratory Rate Blood Pressure Pulse Oximetry Oxygen Delivery Room Air Intake/Output Intake/Output: Intake & Output 12/07/23 12/08/23 12/09/23 12/10/23 23:59 23:59 23:59 23:59 Intake Total 2808 600 1254.3 300 Output Total 5 150 10 Balance 2803 600 1104.3 290 Meds/Results Medications: Active Medications Generic Name Dose Route Start Last Admin Trade Name Atulq PRN Reason Stop Dose Admin Acetaminophen 650 mg 11/28/23 21:16 12/09/23 18:00 Acetaminophen 325 Mg Tablet PO 650 mg Q4H PRN Administration Fever Hydrocodone Bitart/Acetaminophen 1 tab 11/26/23 20:00 11/28/23 11:07 Hydrocodone/Acetaminophen (*Crx) 5-325 Mg Tablet PO 1 tab Q3H PRN Administration Pain Rated 5 or Less Hydrocodone Bitart/Acetaminophen 1 tab 11/26/23 20:00 12/10/23 09:21 Hydrocodone/Acetaminophen (*Crx) 10-325 Mg Tablet PO 1 tab Q3H PRN Administration Pain Rated 6 or Greater Alteplase, Recombinant 2 mg 12/07/23 02:48 12/07/23 05:19 Alteplase 2 Mg Vial (Cathflo) IV PUSH 2 mg ONCE PRN Administration Line Occlusion Amitriptyline HCl 25 mg 11/26/23 21:00 12/09/23 21:58 Amitriptyline Hcl 25 Mg Tablet PO 25 mg QHS BRIANA Administration Amlodipine Besylate 5 mg 11/26/23 21:00 12/09/23 21:58 Amlodipine Besylate 5 Mg Tablet PO 5 mg HS BRIANA Administration Enoxaparin Sodium 30 mg 11/27/23 09:00 12/05/23 07:51 Enoxaparin 30 Mg/0.3 Ml Syringe SUB-Q 30 mg Q12HR BRIANA Administration Dextrose 1,000 mls @ 50 mls/hr 12/08/23 18:25 Dextrose 10% IV CONT .Q20H PRN if PN is interrupted Multivitamins 2.5 ml/ 2,005 mls @ 40 mls/hr 12/08/23 18:25 12/09/23 18:01 Multivitamins 2.5 ml/ Amino IV CONT 40 mls/hr Acids/Electrolytes/Dextrose .Q24H BRIANA Administration Protocol Fat Emulsion Intravenous 250 mls @ 20.833 mls/hr 12/08/23 18:25 12/10/23 06:03 Lipids 20% IVPB Infused Q24H BRIANA Infusion Cefepime HCl 2 gm in 50 mls @ 100 mls/hr 12/09/23 17:00 12/10/23 06:16 Maxipime 2 Gm/Ns
[2023-12-10 12:14] LABS: Glucose Point of Care 113 mg/dl (65-105)
--- NOTE | 2023-12-10 13:48 | PM.GYNPNOP ---
REGISTRY RN - A/P Assessment and plan (1) Intra-abdominal abscess: Code(s): K65.1 - Peritoneal abscess Status: Acute (2) Encounter for postoperative care: Code(s): Z48.89 - Encounter for other specified surgical aftercare Status: Acute Assessment and Plan: afebrile, stable, anemic. New drain placed, larger caliber. Transfers pending, abdominal incision opened and packed Postoperative Procedures: Procedures Operation Date: 11/26/23 12:30 Actual Procedure Side Surgeon p Open Left Salpingo-Oophorectomy, Repair of arteries and vein for intraoperative hemorrhage, extensive adhesiolysis Left Clyde Lopez MD Time Spent With Patient Time: Total time spent is greater than 50% in coordination of care (as documented) at patient's floor/unit and/or counseling patient: Time with patient: less than 15 minutes REGISTRY RN- PN:Subj Post-Op Subjective Date/time seen: 12/10/23 13:48 Patient is in good spirits, sitting up in a chair, comfortable, denies fevers/chills. Interval history: Patient tearful sitting up in the chair as she has pain after the CT-guided catheter placement exchange. She otherwise denies chest pain nausea vomiting fevers or abdominal pain aside from the incision site of drain. She still reports watery yellow diarrhea Exam Const: General: cooperative, healthy appearing, comfortable and no acute distress Resp: Auscultation: no crackles, no rales, no rhonchi and no wheezes Cardio: Rhythm: regular rhythm Heart sounds: no click and no murmurs GI: Inspection: non-distended Auscultation: normal bowel sounds Other: Open abdominal incision, packed Extrem: General: normal to inspection, no pedal edema and no calf tenderness REGISTRY RN - PN: Obj Data Vital Signs Vital Signs: Vital Signs - 24 hr 12/09/23 13:51 12/09/23 18:00 12/09/23 21:20 Temperature 97.7 F 100.2 F H 97.2 F L Pulse Rate 95 93 Respiratory Rate 20 20 Blood Pressure 114/68 123/76 Pulse Oximetry 99 97 Oxygen Delivery 12/09/23 20:00 12/10/23 03:50 12/10/23 06:05 Temperature 98.8 F 98.9 F Pulse Rate 101 H Respiratory Rate 18 Blood Pressure 140/81 Pulse Oximetry 96 Oxygen Delivery Room Air 12/10/23 08:17 Temperature Pulse Rate Respiratory Rate Blood Pressure Pulse Oximetry Oxygen Delivery Room Air Intake/Output Intake/Output: Intake & Output 12/07/23 12/08/23 12/09/23 12/10/23 23:59 23:59 23:59 23:59 Intake Total 2808 600 1254.3 300 Output Total 5 150 10 Balance 2803 600 1104.3 290 Meds/Results Medications: Active Medications Generic Name Dose Route Start Last Admin Trade Name Freq PRN Reason Stop Dose Admin Acetaminophen 650 mg 11/28/23 21:16 12/09/23 18:00 Acetaminophen 325 Mg Tablet PO 650 mg Q4H PRN Administration Fever Hydrocodone Bitart/Acetaminophen 1 tab 11/26/23 20:00 11/28/23 11:07 Hydrocodone/Acetaminophen (*Crx) 5-325 Mg Tablet PO 1 tab Q3H PRN Administration Pain Rated 5 or Less Hydrocodone Bitart/Acetaminophen 1 tab 11/26/23 20:00 12/10/23 09:21 Hydrocodone/Acetaminophen (*Crx) 10-325 Mg Tablet PO 1 tab Q3H PRN Administration Pain Rated 6 or Greater Alteplase, Recombinant 2 mg 12/07/23 02:48 12/07/23 05:19 Alteplase 2 Mg Vial (Cathflo) IV PUSH 2 mg ONCE PRN Administration Line Occlusion Amitriptyline HCl 25 mg 11/26/23 21:00 12/09/23 21:58 Amitriptyline Hcl 25 Mg Tablet PO 25 mg QHS BRIANA Administration Amlodipine Besylate 5 mg 11/26/23 21:00 12/09/23 21:58 Amlodipine Besylate 5 Mg Tablet PO 5 mg HS BRIANA Administration Enoxaparin Sodium 30 mg 11/27/23 09:00 12/05/23 07:51 Enoxaparin 30 Mg/0.3 Ml Syringe SUB-Q 30 mg Q12HR BRIANA Administration Dextrose 1,000 mls @ 50 mls/hr 12/08/23 18:25 Dextrose 10% IV CONT .Q20H PRN if PN is interrupted Multivitamins 2.5 ml/ 2,005 mls @ 40 mls/hr 12/08/23 18:25 12/09/23 18:01 Multivitamins
--- NOTE | 2023-12-10 13:58 | PM.IMPN ---
Progress Note: A&P Assessment and Plan (1) Postoperative fever: Code(s): R50.82 - Postprocedural fever Status: Resolved (2) Postoperative ileus: Code(s): K91.89 - Other postprocedural complications and disorders of digestive system; K56.7 - Ileus, unspecified Status: Acute (3) Tachycardia: Code(s): R00.0 - Tachycardia, unspecified Status: Acute (4) Intra-abdominal bleeding: Code(s): R58 - Hemorrhage, not elsewhere classified Status: Acute (5) Left ovarian cyst: Code(s): N83.202 - Unspecified ovarian cyst, left side Status: Chronic (6) Protein-calorie malnutrition, moderate: Code(s): E44.0 - Moderate protein-calorie malnutrition Status: Acute (7) UTI (urinary tract infection): Code(s): N39.0 - Urinary tract infection, site not specified Status: Acute (8) Sepsis: Code(s): A41.9 - Sepsis, unspecified organism Status: Acute (9) Hypoxia: Code(s): R09.02 - Hypoxemia Status: Acute Plan 43-year-old female with a past medical history anxiety and depression, diverticulitis, complicated hernia repair with postop PE now off of anticoagulation, hypertension, hyperlipidemia, sleep apnea, obesity, seizures (absent type), presented on 11/25 for surgical management of a 5 cm left ovarian cyst that had been causing pelvic pain.? Surgery initially attempted laparoscopically but became complicated by adhesions and intra-abdominal bleeding.? Surgery converted to a low transverse incision.? General surgeon joined the case to help assist bleeding control and urology as well to help identify the left ureter. The surgery was transition to a midline vertical incision. Postop day 2 wound VAC applied to the lower transverse incision, wound VAC since removed.? Due to chills/rigors/worsening tachycardia antibiotics were escalated to meropenem and vancomycin.? Cardiology consulted and felt tachycardia is a physiologic response.?CTA chest abdomen pelvis did not demonstrate pulmonary embolism.?During this time she was transferred to ICU and found to also have developed postop ileus.? On 11/28 NG tube placed for decompression evacuating large amount of dark green gastric content. She has since been referred out of the ICU and NG to removed she is tolerating diet. Postop ileus resolved. However she remained tachycardic and also due to leukocytosis and fever repeat CT abdomen pelvis was performed which demonstrated a large intra abdominal abscess. On December [address]-guided percutaneous abscess drain placement with good pus removal. Lower pannus leakage noted and on 12/[address] abdomen pelvis demonstrated a large collection of fluid and gas again, concern for perforation. On 12/08 the patient underwent a CT guided drainage of her abd abscess with now drain in place. She is on antibiotics and management per the direction of General surgery. See below: Postoperative fever/sepsis -likely due to the intra-abdominal abscess. -still with low-grade fever and occasional tachycardia related to abd abscess s/p drain placement Intra-abdominal abscess -12/04 CT abdomen and pelvis performed due to postop fever and tachycardia. Revealed an abscess measuring approximately 13.4 x 12.6 x 14.6 cm. Shortly after a CT-guided abscess drain was placed with an output of 300 mL of purulent fluid, flores colored. Cefepime metronidazole and vancomycin started -12/07 drainage was noted from her henri at the lower pannus. Repeat CT demonstrated 9.9 x 4.3 x 9.7 cm collection of fluid and gas in the inferior peritoneum with the pigtail drain in expected position, there was concern for perforation. -12/08 CT-guided upsize of her intraperitoneal drain -culture from her 1st drain on 12/04 demonstrating E coli growth in the aerobic Cx and Prevotella dn Bacteroides in the anaerobic Cx. She remains on cefepime and metronidazole -general surgery largely directing care. Bowel re
[2023-12-10 14:00] VITALS: BP 132/81; PULSE 98; RESP 18; TEMP 37.1; O2SAT 98
[2023-12-10] MEDS: AMINO ACIDS 5%/D15W/E-LYTES/CA 2,000 ML with MULTIVITAMINS-12 INJ VIAL 1 2.5 ML, MULTIV... 40 ML IV CONT (17:40)
[2023-12-10] MEDS: FAT EMULSIONS IV 20% 250 ML 20.83 ML IVPB (17:41)
--- NOTE | 2024-01-07 18:15 | P.TS_ITS ---
Transfer Discharge Sum: Prov Provider Date of admission: 11/26/23 20:00 Primary care physician: Diomedes Seals MD Admitting clinician: Clyde Lopez MD Consults: 11/27/23 Wound/ET Consult Routine Reason for Consult:: incisional care to abdomen. 11/28/23 Consult to Physician Routine Comment: Consulting Provider: Alejandro Parker call center receptionist/MD group to consult: plant culture manager Reason for consultation: persistent tachycardia, severe sepsis Has provider been notified: Yes Consult to Physician Routine Comment: Consulting Provider: Glenn Lyman Reason for consultation: medical management, tachycardia Has provider been notified: Yes Consult to Physician Routine Comment: Called exchange and notified them of consult Consulting Provider: Jimenez Chowdary call center receptionist/MD group to consult: cardiology Reason for consultation: persistent sinus tachycardia post-operatively Has provider been notified: Yes 11/29/23 Consult to Physician Routine Comment: Consulting Provider: Avtar Ingram call center receptionist/MD group to consult: surgery Reason for consultation: surgery Has provider been notified: Yes 11/30/23 10:28 Consult to Dietitian Routine Reason for Consult:: TPN 12/08/23 18:25 Consult to Dietitian Routine Reason for Consult:: TPN Attending physician on discharge: Jessica Garcia DS: Admitting Diagnosis Discharge Date 12/10/23 Admitting Diagnosis ovarian cyst, pelvic pain DS: Discharge Diagnosis Discharge Diagnosis (1) Pelvic abscess: Status: Acute Transfer Discharge Sum: Med Medications Active and Home Medications: Home Medications cetirizine 10 mg capsule (Zyrtec) 10 mg PO HS PRN Allergy Symptoms 07/10/22 [History Confirmed 11/26/23] losartan 50 mg tablet 50 mg PO QAM 02/04/23 [History Confirmed 11/26/23] pantoprazole 40 mg tablet,delayed release 40 mg PO BID 1 month #60 tabs 04/01/23 [Rx Confirmed 11/26/23] lamotrigine 150 mg tablet 150 mg PO BID 04/15/23 [History Confirmed 11/26/23] multivitamin 1 tablet PO DAILY 04/15/23 [History Confirmed 11/26/23] amlodipine 5 mg tablet 5 mg PO HS #90 tabs 05/26/23 [Rx Confirmed 11/26/23] amitriptyline 25 mg tablet 25 mg PO QHS #30 tabs 10/02/23 [Rx Confirmed 11/26/23] Transfer Discharge Sum: Hosp Hospital Course Hospital course: Devi Chow is a 43 year old female who was admitted for surgery, outpatient surgery, intraoperative hemorrhage occurred during the procedure. She was opened. After some time the bleeding was temporized and the left ovary was removed. The patient had a lengthy and complicated postoperative course. She had a prolonged ileus. After week of admission she had developed a pelvic abscess. Supportive care was applied for the ileus and a drain was placed in the abscess guided by CT. There was a concern about colon perforation. After approximately 2 weeks she was transferred to a tertiary care center. Dr. Vargas conducted the transfer. Time Spent with Patient Time attestation: Total time spent providing and/or coordinating transfer services: DS: Data Data Completed and Pending Completed studies during hospitalization: Pending at discharge 11/26/23 16:31 Surgical [PTH] Routine
== END 2023-12-10 19:20 | disposition short-term general hospital (02) | DRG 907 ==
LOC: ANHIMU 20:03 → ANHICU 11-28 17:18 → ANHIMU 11-30 13:15 → ANH3MEDSUR 12-04 23:42
PROVIDERS: General Practice; Hospitalist; Internal Medicine; Nurse Practitioner Family; Physician Assistant; Student in an Organized Health Care Education/Training Program; Surgery; Admitting Provider Obstetrics & Gynecology; PCP Family Medicine; Visit Provider Internal Medicine
PROC: 0DNW4ZZ Release Peritoneum, Percutaneous Endoscopic Approach (ICD-10-PCS; CPT 49320; principal; 2023-11-26 12:30)
DX: N99.61 Intraoperative hemorrhage and hematoma of a genitourinary system organ or structure complicating a genitourinary system procedure (principal); K65.1 Peritoneal abscess; E44.0 Moderate protein-calorie malnutrition; I97.52 Accidental puncture and laceration of a circulatory system organ or structure during other procedure; I97.191 Other postprocedural cardiac functional disturbances following other surgery; K91.89 Other postprocedural complications and disorders of digestive system; K56.7 Ileus, unspecified; J98.11 Atelectasis; T81.44XA Sepsis following a procedure, initial encounter; T81.43XA Infection following a procedure, organ and space surgical site, initial encounter; N83.202 Unspecified ovarian cyst, left side; R00.0 Tachycardia, unspecified; N73.6 Female pelvic peritoneal adhesions (postinfective); R09.02 Hypoxemia; D64.89 Other specified anemias; Z53.31 Laparoscopic surgical procedure converted to open procedure; M19.90 Unspecified osteoarthritis, unspecified site; F41.9 Anxiety disorder, unspecified; M47.812 Spondylosis without myelopathy or radiculopathy, cervical region; M47.816 Spondylosis without myelopathy or radiculopathy, lumbar region; F32.A Depression, unspecified; K57.90 Diverticulosis of intestine, part unspecified, without perforation or abscess without bleeding; I10 Essential (primary) hypertension; E78.5 Hyperlipidemia, unspecified; G47.30 Sleep apnea, unspecified; G40.909 Epilepsy, unspecified, not intractable, without status epilepticus; F17.290 Nicotine dependence, other tobacco product, uncomplicated; Z90.49 Acquired absence of other specified parts of digestive tract; Z86.711 Personal history of pulmonary embolism; Z86.718 Personal history of other venous thrombosis and embolism; E66.9 Obesity, unspecified; Z68.36 Body mass index [BMI] 36.0-36.9, adult
CPT/HCPCS: 36415; 36430; 36569; 36600; 71045; 71250; 71275; 74018; 74176; 74177; 75989; 80048; 80053; 80202; 81001; 82274; 82805; 82948; 83605; 83735; 84100; 84145; 84443; 84466; 84478; 84484; 85014; 85018; 85025; 85027; 85610; 85730; 86850; 86900; 86901; 86923; 87040; 87070; 87075; 87076; 87077; 87086; 87088; 87181; 87186; 87205; 87493; 87641; 88305; 93005; 93306; 97116; 97161; 97530; A9270; C1729; C1751; C1769; C9113; J0690; J0692; J0696; J1100; J1170; J1200; J1650; J1885; J1939; J2185; J2250; J2270; J2371; J2405; J2765; J2919; J2997; J3010; J3370; J3475; J3480; J7030; J7050; J7120; P9016; Q9967; Q9968

== ENCOUNTER 2024-09-01 08:06 | Outpatient (CLI) | payer OTHER, SELFPAY ==
--- OUTSIDE RECORDS SUMMARY | 2024-09-01 08:21 | XMS_ITS | Clinical Summary ---
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 Hvac Design Mechanical Engineer Name Role Phone Diomedes Seals MD Primary Care Provider + [phone] Allergies Active Allergy Reactions Criticality Noted Date Comments Iodinated Contrast Media Rhinitis Medium 03/14/2020 IV contrast only, tolerated at OSH with IV benadryl pre-medication Gluten Other (See comments) High 12/19/2023 pain Gluten Protein Other (See comments) High 02/04/2024 Irbesartan Other (See comments) Low 01/12/2024 Hair loss Penicillin G Rash Medium 12/10/2023 Shrimp Rash Medium 12/26/2023 Medications losartan (COZAAR) 50 mg tabletIndication s:hypertension Take 1 tablet (50 mg total) by mouth daily 0 Active amitriptyline (ELAVIL) 25 mg tabletIndication s:Irritable Bowel Syndrome Take 1 tablet (25 mg total) by mouth nightly Active amLODIPine (NORVASC) 5 mg tabletIndication s:hypertension Take 1 tablet (5 mg total) by mouth daily Active pantoprazole DR (PROTONIX) 40 mg EC tabletIndication s:Stress Ulcer Prophylaxis Take 1 tablet (40 mg total) by mouth daily Active cetirizine 10 mg capsuleIndicatio ns:Seasonal Allergic Rhinitis Take 10 mg by mouth daily as needed (allergies) Active acetaminophen 500 mg capsuleIndicatio ns:Pain Take 2 capsules (1,000 mg total) by mouth every 6 (six) hours as needed for pain 05/31/202 4 Active Additional Information Patient not taking.Reported on 02/04/2024 lamoTRIgine (LaMICtal) 150 mg tablet Take 1 tablet (150 mg total) by mouth nightly Active cyclobenzaprine (FLEXERIL) 5 mg tabletIndication s:Muscle Spasm Take 1 tablet (5 mg total) by mouth 3 (three) times a day as needed for muscle spasms 42 tablet 4 Active Additional Information Patient not taking.Reported on 02/04/[address] (CYMBALTA) 60 mg capsule Take 1 capsule (60 mg total) by mouth daily 4 Active Active Problems Problem Noted Date Diagnosed Date Pneumaturia 12/25/2023 Allergy to intravenous contrast 12/25/2023 Assessment & Plan (12/25/2023 2:47 PM CDT): -Noted in chart -Pre-medicate with benadryl only; tolerated well Anemia 12/12/2023 Assessment & Plan (12/19/2023 1:36 PM CDT): -Reported EBL 3000cc intra op at OSH OR 11/25 -Unknown blood transfusion requirement at OSH -12/10 Hgb 7.7 on admission -12/11 Hgb 7.4; active T&S, no signs of bleeding, transfusion if <7 12/18 HGB stable 10.0 at discharge Discharge planning issues 12/12/2023 Assessment & Plan (12/19/2023 1:37 PM CDT): -Lives at home alone, up ad rosie; no need for PT/OT evaluation at this time -Anticipate home dispo -12/10 HH infusion referral sent for potential TPN needs at dispo -12/[address] scan with NV contrast 12/16 Starting clear liquids but continuing TPN. Will attempt to wean off TPN prior to discharge. 12/17 IR drain check in AM and advancing diet, discontinuing TPN. 12/18 Discharging home with IR drain, abdominal dressings and HH. Ovarian cyst 12/12/2023 Assessment & Plan (12/25/2023 9:18 AM CDT): -OSH ([facility]) OR 11/25, initially planned for elective surgery; c/b intraabdominal hemorrhage, OSH General Surgery c/s intra-op > Op notes obtained and uploaded in Media -Post op course c/b abscess c/f ECF, identified at OSH on 12/04 -Transfer to [facility] for higher level of care with prior EGS admission 12/09-12/18 Pathology OSH 11/25 -Benign hypervascular ovarian cyst with adhesions Assessment & Plan (12/12/2023 12:17 PM CDT): -OSH OR 11/25, initially planned for elective surgery; c/b intraabdominal hemorrhage, OSH General Surgery c/s intra-op > Op notes obtained and uploaded in Media -Post op course c/b abscess c/f ECF -Transfer to [facility] for higher level of care - SEE INTRA ABDOMINAL ABSCESS Pathology OSH 11/25 -Benign hypervascular ovarian cyst with adhesions At risk for malnutrition 12/12/2023 Assessment & Plan (12/26/2023 12:35 PM CDT): -Previously on TPN started at OSH; 12/04-12/17 -Pending CT cysto; can consider restarting TPN for nutritional support -Weekly nutrition labs NUTRITION LABS 12/10 Albumin 3.0 Prealbumin 10 12/17 Albumin 3.8 Prealbumin 28 6/6 Albumin 4.0 Prealbumin 31.0 Assessment & Plan (12/19/2023 1:37 PM CDT): -TPN started at OSH, unknown start date, ?12/04 -Does not meet ASPEN criteria for malnutrition per RD documentation -12/10 direct admission, TPN hanging on arrival, PICC line confirmed on imaging -12/11-12/14 Continue bowel rest and TPN; hold on micronutrition labs for now pending characterization of potential fistula 12/16 clear liquid diet. TPN continued. 12/17 Advancing to regular diet, will discontinue TPN after this bag. 12/18 Tolerating a diet with good appetite. 12/10 Albumin 3.0 Prealbumin 10 Hypertension 12/11/2023 Assessment & Plan (12/28/2023 9:41 AM CDT): -Home meds: losartan, amlodipine; restart as able -resumed at discharge. Assessment & Plan (12/12/2023 12:13 PM CDT): -home amlodipine and losartan -Normotensive on admission, hold Anxiety and depression 12/11/2023 Assessment & Plan (12/25/2023 9:17 AM CDT): Home amitriptyline - continued Assessment & Plan (12/12/2023 12:14 PM CDT): Home amitriptyline - continued GERD (gastroesophageal reflux disease) Assessment & Plan (12/25/2023 9:17 AM CDT): Continue home PPI Assessment & Plan (12/12/2023 12:14 PM CDT): -Home PPI; restarted Acute pain 12/11/2023 Assessment & Plan (12/19/2023 1:36 PM CDT): -OK for PO meds; PRN tylenol, oxycodone, and dilaudid for pain control 12/16-12/17 Pain well controlled on PRN oxycodone and discontinuing IV dilaudid. 12/18 Discharging with 20 tabs of oxycodone for pain control. Pain well controlled at discharge. Pre-op evaluation 12/11/2023 Assessment & Plan (12/12/2023 2:15 PM CDT): Fistula Pre-Op Planning (last updated 12/12/23) Primary Care Provider: Rossana Ireland, [employer] COVER[employer] Placement or [facility] [facility] [employer]: N/A Current Diet: NPO, TPN Current anti-motility agents/doses: None Current fistula management/output: low output via IR drain, midline scant output Colonoscopy: none Prior abdominal surgeries: 06/05/22: lap sigmoidectomy 04/21/23: open VHR with bard soft mesh 11/26/23: lap converted open left oophorectomy (significant adhesion burden hypervascular, EBL 3L, requiring control of hemorrhage (Ovarian mass - benign on pathology) ---OSH, records obtained and in chart Prior pathology: 11/26/23 - Benign hypervascular ovarian cyst with adhesions Micronutrients - hold pending ?fistula characterization Zinc: Vit D 25 hydroxyl: Vit B12: Folate: Iron profile: Copper: Vit A: ---Replacement Orders: NA Prealbumin/Albumin: weekly orders 12/10 Albumin 3.0 Prealbumin 10 Recent Culture Data: -12/04 (OSH) IR drain placement - E. Coli, Prevotella, Bacteriodes Steroids/immunosuppression: -none Recorded Wt: 111.6kg updated on 12/10/23 Body mass index is 39.71 kg/m . Access: PICC placed at OSH ?12/05/23 Last ECHO - none PFTs if indicated: not needed EKG 12/11/23 OR plan and surgeon: N/A ---IPAP: surgery not scheduled Intra-abdominal abscess (CMS/HCC) 12/10/2023 Assessment & Plan (12/28/2023 9:47 AM CDT): Relevant surgical history: (all [facility]) 06/05/22: lap sigmoidectomy 04/21/23: open VHR with bard soft mesh OSH Course 11/26/23: lap converted open left oophorectomy (significant adhesion burden hypervascular, EBL 3L, requiring control of hemorrhage (Ovarian mass - benign on pathology) 12/04 CT A/P: 13.4 x 12.6 x 14.6 cm intra-abdominal abscess possibly communicating with the distal colon near prior colorectal anastomosis 12/04 OSH IR drain placement 12/07 CT A/P: 9.9 x 4.3 x 9.7 cm fluid and gas collection in the inferior abdominal cavity with previous IR catheter in expected position 12/08 OSH IR drain upsize Prior EGS admission/course (12/09-12/18) 12/09 Direct admission from OSH > PICC and TPN continued, IR drain from OSH in place 12/16 Started on PO diet, ADAT 12/18 IR drain in pelvis fluid check with drain replacement and re-positioning today. Current Hospital Course (admitted 12/23) -New complaint for gas from urethra after voiding started 12/21 -Repeat CT A/P with PO contrast with c/f fistulous connection within urinary system > Urology consulted -CT Cystogram ordered -Doyle placed in ED > clear yellow urine in collection bag -IV ertapenem -NPO -Local wound care to midline; vashe or NS WTD packing BID -IR drain in place, continue BID flushing, scant purulent output with leaking around insertion site from prior exchange ---Next IR drain check scheduled 01/14 outpatient Relevant Imagin/23 LE Arterial Dopplers - bilateral lower extremity arterial multiphasic waveforms in all distributions above with normal ankle/brachial indices and digit pressures. No evidence of lower extremity arterial occlusive disease at rest bilaterally. 12/10 LE venous duplex - negative for VTE 12/11 CT A/P with rectal contrast - no perforation or leak, possible micro perforation 12/23 CT A/P (IV and PO contrast) - Interval upsizing of a left lower quadrant drain with near complete collapse of the predominantly gas collections in the pelvis, now measuring 6.1 x 1.2 cm previously 7.1 x 1.5 cm and a more superior collection measuring 4.6 x 1.3 cm, previously 5.8 x 3.3 cm. No ascites or pneumoperitoneum. New gas within the left renal pelvis, left ureter, and urinary bladder concerning for fistulous communication with the now largely decompressed gas-fluid collections in the left hemipelvis with a percutaneous drain in place. An alternative, but less likely consideration is a fistulous communication between the sigmoid colon and urinary bladder. Known fistulous communication between the pelvic fluid collection and the sigmoid colon/rectum seen 12/24 CT Cystogram - no bladder rupture or evidence of colovesicular fistula. Redemonstrated gas in the left renal collecting system. The left ureter runs in close approximation to the pelvic gas and fluid collection, evaluation for connection of the left ureter to the pelvic collection is not well evaluated on the present study as the ureter is not opacified with contrast. Consider evaluation with dedicated CT urogram. 12/25 IR consulted to evaluate abscess drain. - no urgent indication to interrogate nor remove the drain - has appointment @ [facility] 12/31 for drain eval after discharge. If still inpatient then can consider evaluating prior to d/c - do not flush the drain CT Urogram: No evidence of leak or fistulous connection involving the upper tracts on this examination. Although no definite evidence of fistula involving the bladder is seen on this examination. Overall improvement in the amount of renal and bladder gas. Overall improvement pelvic inflammation with associated predominantly gas- containing collections. -No plans for TPN, regular diet started. Abdomen soft, minimal TTP near staple line, ND. Abscess drain with no drainage. Staple line clean with 2 small open areas with pink tissue. 12/26 IR drain with no output, however, drainage of creamy purulent drainage around tube. Midline henri and low transverse henri in place. Removing all henri today. Upper opening in incision pink and clean. Lower opening with thick purulent drainage. Continuing Ertapenem will monitor output. CT Urogram with no leak. Removing doyle today. No follow up per Urology. 12/27 Tolerating a regular diet and having BM's. Voiding after doyle removed. Still has sensation of gas at times. No leaks per CT Urogram and CT cystogram. No Urology follow up needed. Midline incision clean, all henri removed yesterday and incision remains approximated. Small upper opening pink and clean. Lower opening very small and minimal purulent drainage. Vashe wet to dry BID and instructed she can use NS damp to dry if she runs out of vashe. The IR drain has minimal to no output- IR evaluated and instructed no flushing and she will follow up for drain check 12/31 in the AM and General surgery following. She will go back on the PO Bactrim and complete the original course of 14 days. This can be re-evaluated in clinic. Denies pain and no pain medications prescribed. Discharging home with nursing to help with wound care. Prior Cultures 12/04 (OSH) IR drain placement - E. Coli, Prevotella, Bacteriodes Prior Antibiotics Cefepime ?unknown start time at OSH; cont 12/09 - 12/17 Flagyl ?unknown start time at OSH; cont 12/09 - 12/17 Bactrim 12/18-01/01 (2 weeks) Current Culture 12/24 Blood cultures: NGTD pending at discharge. Current Antibiotics --Previously discharged on Bactrim, stopped on admission Ertapenem 12/23 - 12/27 Bactrim 12/27 to complete the original course for 14 days. Assessment & Plan (12/19/2023 1:41 PM CDT): Relevant surgical history: (all [facility]) 06/05/22: lap sigmoidectomy 04/21/23: open VHR with bard soft mesh OSH Course 11/26/23: lap converted open left oophorectomy (significant adhesion burden hypervascular, EBL 3L, requiring control of hemorrhage (Ovarian mass - benign on pathology) 12/04 CT A/P: 13.4 x 12.6 x 14.6 cm intra-abdominal abscess possibly communicating with the distal colon near prior colorectal anastomosis 12/04 OSH IR drain placement 12/07 CT A/P: 9.9 x 4.3 x 9.7 cm fluid and gas collection in the inferior abdominal cavity with previous IR catheter in expected position 12/08 OSH IR drain upsize 12/10: Overnight direct admission given c/f ECF from OSH; NPO, mIVFs, Continue TPN via PICC, BID WTD midline wound, IV cefe/flagyl, CT AP with IV and NV contrast to rule out missed colon injury, LEDs and lower extremity arterial doppler 12/11 LE US studies unrevealing. CT A/P with NV contrast pending. No nausea, continue IV antibiotics. +BM per rectum. Midline drainage scant. OSH IR drain remains low output, 12cc/24h, villagran, thin in character. Patient reports OSH not flushing drain, continue to gravity 12/12 CT from 12/11 without colonic injury or perforation, possible micro perforation, continue NPO, TPN, consider re-scan in a few days 12/13 pain controlled overnight, continue to monitor NPO, TPN 12/14 abscess drain with purulent drainage, plan for repeat CT 12/16, continue antibiotics, midline henri with wet to dry packing, wound base pink 12/15 unchanged drainage to IR drain, lower abdominal wound with same purulent drainage, now packed with vashe soaked gauze BID dressing change, packing anterior open midline wound as well 12/16 NPO/TPN, CT abd/pelvis with PO/IV contrast: No active extravasation from bowel. Interval decrease in size of the multilobulated gas fluid collection in the left lower quadrant with a percutaneous drain in place. No new organized drainable collection. -started clear liquids and will continue TPN at this time. Drain LLQ has yellow drainage. 12/17 IR consulted for drain check. She would like to follow with [facility] IR and General surgery. IR drain yellow serous. Advancing from clear liquid to regular diet. Upper abdominal open wound with green drainage on packing. Continuing Cefepime and flagyl at this time. IR drain check tomorrow and NPO after MN. 12/18 IR drain in pelvis fluid check with drain replacement and re-positioning today. -findings: Pelvic fluid collection expanding from LLQ to lower mid-pelvic area with a rectal fistula noted. Existing drain not positioned in lower-mid fluid collection. Drain was replaced and repositioned for optimal fluid drainage. ~60 cc purulent fluid drained during procedure. Tolerating a diet with good appetite. Having BM's. Abdomen slightly distended, soft, and mild TTP near incision. Midline henri in place with 2 areas open, tunneling and packed with NS damp to dry gauze. No enteric content from either area. Yesterday she had a dressing change with some green/pseudomonal type drainage. Bactrim x14 days started. -IR drain flush 10 ml NS TID -Dressing changes BID HH ordered for nursing and discharging home with EGS and IR follow up on 12/31. [facility] Imagin/23 LE Arterial Dopplers - bilateral lower extremity arterial multiphasic waveforms in all distributions above with normal ankle/brachial indices and digit pressures. No evidence of lower extremity arterial occlusive disease at rest bilaterally. 12/10 LE venous duplex - negative for VTE 12/11 CT A/P with rectal contrast - no perforation or leak, possible micro perforation Cultures 12/04 (OSH) IR drain placement - E. Coli, Prevotella, Bacteriodes Antibiotics Cefepime ?unknown start time at OSH; cont 12/09 - 12/17 Flagyl ?unknown start time at OSH; cont 12/09 - 12/17 Bactrim 12/18-01/01 (2 weeks) Varicose veins with pain 06/07/2020 Sleep apnea 06/17/2012 Nontoxic single thyroid nodule 06/17/2012 Hirsutism 06/17/2012 Seizure disorder (CMS/HCC) Assessment & Plan (12/25/2023 9:16 AM CDT): - Patient reported absence seizures; unknown last seizure; compliant with home meds - Continue home lamotrigine 150mg BID Assessment & Plan (12/19/2023 1:42 PM CDT): -Patient reported absence seizures; unknown last seizure; compliant with home meds - Continue home lamotrigine 150mg BID 12/18 Patient reports taking lamotrigine 150 mg nightly not BID Encounters Date Type Department Care Team Description 06/30/2024 Telephone [facility] Obstetrics and Gynecology [address] [place] [address] Zoe Fung Scheduling Appointments 06/10/2024 2:45 PM HIDE SPREADER Office Visit [facility] [address] [facility] [address] [place] [address] Infected prosthetic mesh of abdominal wall, subsequent encounter (Primary Dx) from Last 3 Months Immunizations Name Administration Dates Next Due Influenza, Trivalent, IM (MDV) 06/12/2012 Surgical History Surgery Date Site/Laterality Comments DILATION AND CURETTAGE, DIAGNOSTIC / THERAPEUTIC VEIN LIGATION AND STRIPPING CHOLECYSTECTOMY APPENDECTOMY SECTION 2 BREAST CYST EXCISION ABSCESS CATHETER INJECTION 12/19/2023 N/A ABSCESS CATHETER INJECTION 01/01/2024 N/A ABSCESS CATHETER INJECTION 01/12/2024 N/A ABSCESS CATHETER INJECTION 02/04/2024 N/A Medical History Medical History Date Comments Celiac disease Varicose veins of leg with edema, bilateral Seizure disorder (CMS/HCC) (HCC) Diverticulitis Hypertension Sleep apnea GERD (gastroesophageal reflux disease) DVT (deep venous thrombosis) (CMS/HCC) (HCC) Depression Stroke (HCC) Chronic kidney disease Anemia Asthma Eczema Urinary tract infection Family History Medical History Relation Name Comments Diabetes Father Heart disease Father Hypertension Father Breast cancer Maternal Grandmother Heart disease Mother Pulmonary embolism Mother Relation Name Status Comments Father Alive Maternal Grandmother Mother Alive Social History Tobacco Use Types Packs/Day Years Used Date Smoking Tobacco: Every Day Vaping Smokeless Tobacco: Never Tobacco Cessation:Ready to Q uit: Not Asked; Counseling Given: Not Answered Comments:Vapes nictotine OASIS D0700: Social Isolation Answer Da te Recorded Frequency of experiencing loneliness or isolatio n Never 12/21/2023 OASIS A1250: Transportation Answer Date Recorded Lack of Transportation (Medical) No 12/21/2023 Lack of Transportation (Non-Medical) No 12/21/2023 Patient Unable or Declines to Respond No 12/21/2023 OASIS B1300: Health Literacy Answer Iron e Recorded Frequency of needing help to read materials from doctor or pharmacy Never 12/21/2023 [facility] Utilities Answer Date Recorded In the past 12 months has th e [employer], [employer], oil, or water [employer] threatened to shut off services in your home? No 12/26/2023 Humiliation, Afraid, Rape, and Kick questionnair e Answer Date Recorded Within the last year, have y ou been afraid of your partner or ex-partner? No 12/25/2023 Within the last year, have y ou been humiliated or emotionally abused in other ways by your partner or ex-partner? No Within the last year, have y ou been kicked, hit, slapped, or otherwise physically hurt by your partner or ex-partner? No 12/25/2023 Within the last year, have y ou been raped or forced to have any kind of sexual activity by your partner or ex-partner? No 12/25/2023 Social Connection and Isolat ion Panel [NHANES] Answer Date Recorded In a typical week, how many times do you talk on the phone with family, friends, or neighbors? More than three times a week 12/26/2023 How often do you get togethe r with friends or relatives? More than three times a week 12/26/2023 How often do you attend chur or hoahaoism services? Never 12/26/2023 Do you belong to any clubs o r organizations such as restorationist groups, unions, fraternal or athletic groups, or school groups? No 12/26/2023 How often do you attend meet ings of the clubs or organizations you belong to? Never 12/26/2023 Are you , , di vorced, , never , or living with a partner? 12/26/2023 AUDIT-C Answer Date Recorded Q1: How often do you have a drink containing alc ohol? Monthly or less 03/04/2024 Q2: How many drinks containi ng alcohol do you have on a typical day when you are drinking? 1 or 2 03/04/2024 Q3: How often do you have si x or more drinks on one occasion? Never 03/04/2024 Overall Financial Resource Strain (CARDIA) Answe r Date Recorded How hard is it for you to pa y for the very basics like food, housing, medical care, and heating? Not hard at all 12/26/2023 PHQ-2 Answer Date Recorded PHQ-2 Total Score 1 12/26/2023 [facility] - Occupational Stress Questionnaire Answer Date Recorded Do you feel stress - tense, restless, nervous, or anxious, or unable to sleep at night because your mind is troubled all the time - these days? Only a little 12/25/2023 Exercise Vital Sign Answer Date Recorde d On average, how many days pe r week do you engage in moderate to strenuous exercise (like a brisk walk)? 3 days 12/25/2023 On average, how many minutes do you engage in exercise at this level? 40 min 12/25/2023 Hunger Vital Sign Answer Date Recorded Within the past 12 months, y ou worried that your food would run out before you got the money to buy more. Never true 03/04/20 24 Within the past 12 months, t he food you bought just didn't last and you didn't have money to get more. Never true 03/04/2024 PRAPARE - Transportation Answer Date Re corded In the past 12 months, has l ack of transportation kept you from medical appointments or from getting medications? No 01/2024 In the past 12 months, has l ack of transportation kept you from meetings, work, or from getting things needed for daily living? No 12/26/2023 Housing Stability Vital Sign Answer Iron e Recorded In the last 12 months, was t here a time when you were not able to pay the mortgage or rent on time? No 12/26/2023 In the past 12 months, how m any times have you moved where you were living? 0 12/26/2023 At any time in the past [address] [facility], were you homeless or living in a fpc (including now)? No 12/26/2023 Personal Safety Answer Date Recorded Have you ever been in or are you currently in a harmful physical or emotional relationship or is someone making you feel afraid or unsafe? Denies 02/04/2024 Comments No Sex and Gender Information Value Date Recorded Sex Assigned at Not on file Legal Sex Female 12:43 AM HIDE SPREADER Gender Identity Female 12/22/2023 9:56 AM CDT Sexual Orientation Straight 12/22/2023 9: 56 AM CDT Obstetrics History Last Filed Vital Signs Vital Sign Reading Time Taken Comments Blood Pressure 141/90 06/10/2024 2:00 PM HIDE SPREADER Pulse 105 06/10/2024 2:00 PM HIDE SPREADER Temperature 36.7 C (98 F) 06/10/2024 2:00 PM HIDE SPREADER Respiratory Rate 18 02/04/2024 8:29 AM CDT Oxygen Saturation 97% 06/10/2024 2:00 PM HIDE SPREADER Inhaled Oxygen Concentration - - Weight 107.1 kg (236 lb 1.6 oz) 06/10/2024 2:00 PM HIDE SPREADER Height 172.7 cm (5' 8 ) 03/04/2024 10:0 8 AM CDT Body Mass Index 35.9 03/04/2024 10:08 AM CDT Plan of Treatment Health Maintenance Due Date Last Done Comments Cervical Cancer Screening 1979 Hepatitis C Screening 1979 Pneumococcal vaccine <65 (1 of 2 - PCV) 10/01/1985 DTaP/Tdap/Td Vaccine (1 - Tdap) 10/01/1990 Varicella Vaccines (1 of 2 - 13+ 2-dose series) 10/01/1992 Hepatitis B Screening 10/01/1997 Regular Well Visit/Exam 18-64 10/01/1997 Covid-19 Vaccine (3 - 2023-2 5 season) 2024 11/25/2020, 11/03/2020 Influenza Vaccine (#1) 2024 06/12/2012 Breast Cancer Screening-Mammogram 04/29/2024 04/29/2023, 01/10/2020 Depression Screening 12/23/2024 12/24/2023 HPV Vaccines Aged Out No longer eligi ble based on patient's age to complete this topic Procedures Procedure Name Priority Date/Time Associated Diagnosis Comments DISCHARGE DRESSING Routine 06/10/2024 3: 11 PM HIDE SPREADER from Last 3 Months Results * Post-Discharge Dressing Care (06/10/2024 3:11 PM HIDE SPREADER) Karin Perez RN - 06/10/2024 3:11 PM HIDE SPREADER Wound care dressings applied per written orders as follows: 1/4 inch gaze to lower abdominal sinus tract and cover with dry dressing. Maximo Luna MD NURSING WOUND CARE Final Re sult from Last 3 Months Insurance [facility] CHO[employer] [facility] HMO/PPO Address: [facility] [address] [place] [address] [employer] [facility] CHOICE [employer] HMO/PPO Address: [address] [address] [place] [address] [facility] H[facility]/PPO Address: [address] [address] [place] [address] [facility] H[facility]/PPO Address: [address] [place] [phone] [facility] H[facility]/PPO Address: [address] [address] Advance Directives For more information, please contact: [phone] * Full Code (Latest Code Status on File) Date Activated Date Inactivated Comments 02/04/2024 7:39 AM 02/05/2024 5:10 AM * Full Code Date Activated Date Inactivated Comments 01/12/2024 9:08 AM 01/13/2024 5:20 AM * Full Code Date Activated Date Inactivated Comments 01/01/2024 7:47 AM 01/02/2024 5:19 AM * Full Code Date Activated Date Inactivated Comments 12/25/2023 2:31 PM 12/28/2023 4:15 PM * Full Code Date Activated Date Inactivated Comments 12/10/2023 9:24 PM 12/19/2023 10:20 PM 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
--- OUTSIDE RECORDS SUMMARY | 2024-09-01 08:22 | XMS_ITS | Data Portability ---
Author Organization [facility] Address [address] [place] [address] Care Team Providers Care [employer] Supp[employer] Distributor Name Role Phone VOLODYMYR MAS Primary Care Provider Assessment Encounter Date Assessment Date Assessment LastModified by Organization Details LastModified Time 01/29/2023 01/29/2023 Annual gynecological exam performed. Patient will come back in a year unless there are new symptoms. Not available 01/29/2023 15:40:17 Plan of Treatment Reminders Order Date Submit Date Provider Last Modified By Organization Details Last Modified Time Details Appointments None recorded. Lab testosteron e, total, serum 2023 024 [facility] (Lab), [address] [place], [address], 4 08:01:17 ova1, serum 2023 024 [facility] (Lab), [address] [place], [address], 4 13:08:41 Referral None recorded. Procedures None recorded. Surgeries laparoscopi c ovarian cystectomy (SURG) 2023 024 [facility], [address] [facility], [place], [address], 4 19:38:14 Imaging MAMMO, screening, bilateral [address] [facility], [address], [place], [address], 3 13:49:52 US, pelvis 2023 024 [email or web address], [address], [place], [address], 4 18:11:47 US, transvagina l 2023 024 [email or web address], [address], [place], [address], 4 18:11:47 Medication Orders None recorded. Patient TargetsNo targets recorded. Patient InstructionsNo instructions recorded. Reason for Referral None Reported. 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 Elect diana mendiola chely d by Jeremie Vazquez, CT on 2022 at 3:00 PM ----- ----- ----- ----- ----- ----- ----- ----- ----- ----- ----- ----- ----- ----- ----- ----- ----- ---- HPV RESUL TS: HPV mRNA E6/E7 : No HPV mRNA Detec jovan NOTE: This high risk HPV mRNA assay detec ts fourt een high- risk HPV types (16, 18, 31, 33, 35, 39, 45, 51, 52, 56, 58, 59, 66, 68) witho ut diffe renti ation . COMME NT: This speci men was revie wed by a Cytot echno logis t and/o r Patho logis t (as indic ated in this repor t) after evalu ation using the Thinp rep Imagi ng Syste m. CLINI LEXI INFOR MATIO N: Menst rual Statu s: LMP (if appli cable ): Clini lexi Histo ry/Pr eviou s Pap: Type of Neopl beltran (if appli cable ): Signi fican t Clini lexi Findi ngs: Other Histo ry: Hormo rasheeda (if appli cable ): PAP EDUCA TANI L NOTE: The Pap Test is a scree cora test with an inher ent false negat ary rate. Liqui d-bas ed sampl ing may decre ase, but will not elimi ambrocio, false negat ary resul ts. A negat ary resul t does not precl ude the prese nce and/o r devel opmen t of disea se, since the prese nce of abnor mal cells in the sampl e depen ds on the locat ion of the lesio n and sampl ing techn ique. Tasha nued regul ar scree cora is the best metho d of cance r preve ntion . If repor jovan cytol ogic findi ng do not corre late with physi lexi and/o r histo rical findi ngs, furth er inves tigat ion is recom jona d, as clini tashi drake nted. Not Available [facility] (Lab) [address], [place], [address], 01/30/2023 17:19:26 10/02/19 24 2023 TESTO STERO NE, TOTAL testosterone , total 43 NG/dL 0-100 Not Available [facility] (Lab) [address] [facility], [place], [address], 10/03/2023 08:01:17 10/24/19 24 10/24/2023 OVA 1 scan result See Scanne d Result Not Available [facility] (Lab) [address] [facility], [place], [address], 10/29/2023 13:08:41 04/29/20 23 04/29/2023 MAMMO , scree cora, bilat eral No observ ation [address] ed. [email or web address] [address], [place], [address], 2023 11:18:12 05/12/20 23 05/12/2023 US, breas t, unila teral No observ ation record ed. [email or web address] [address], [place], [address], 2023 11:18:12 10/13/19 24 10/13/2023 US, pelvi s No observ ation record ed. [email or web address], [place], [address], 10/13/2023 18:22:08 10/13/19 24 10/13/2023 US, trans vagin al No observ ation record ed. [email or web address], [place], [address], 10/13/2023 18:21:54 10/13/19 24 10/13/2023 US, pelvi s No observ ation record ed. [email or web address] [address], [place], [address], 10/14/2023 15:10:45 11/26/19 24 11/26/2023 XR, abdom en + pelvi s No observ ation record ed. [email or web address] [address], [place], [address], 11/26/2023 21:53:59 11/28/19 24 11/28/2023 XR, chest , 1 view No observ ation record ed. [address], [place], [address], 12/16/2023 14:57:21 11/28/19 24 11/28/2023 XR, chest , 1 view No observ ation record ed. [address], [place], [address], 12/16/2023 14:56:54 11/28/19 24 11/28/2023 CT, chest + abdom en + pelvi s, w/o contr ast No observ ation record ed. [address], [place], [address], 12/16/2023 12:10:37 11/29/19 24 11/28/2023 CT, chest + abdom en + pelvi s, w/o contr ast No observ ation record ed. [address], [place], [address], 12/16/2023 12:10:14 11/29/19 24 11/29/2023 CT, chest + abdom en + pelvi s, w/o contr ast No observ ation record ed. [address], [place], [address], 12/16/2023 12:09:45 11/29/19 24 11/29/2023 trans -thor acic echoc ardio gram (TTE) (PROC ) No observ ation record ed. [address], [place], [address], 12/11/2023 16:39:34 11/29/19 24 11/29/2023 CT, angio gram, chest , w/o contr ast No observ ation record ed. [address], [place], [address], 12/11/2023 16:37:34 11/29/19 24 11/29/2023 XR, abdom en + pelvi s No observ ation record ed. [address], [place], [address], 12/11/2023 16:02:26 11/30/19 24 11/30/2023 XR, chest , 1 view No observ ation record ed. [address], [place], [address], 12/11/2023 15:57:33 12/05/19 24 12/05/2023 CT, abdom en + pelvi s, w/o contr ast No observ ation record ed. [address] [address], [place], [address], 12/11/2023 16:20:23 12/05/19 24 12/05/2023 inser tion of tempo rary indwe lling bladd er ranjan ter, compl icate d (PROC ) No observ ation record ed. [address] [address], [place], [address], 12/11/2023 16:05:38 12/08/19 24 12/08/2023 CT, abdom en + pelvi s, w/ contr ast No observ ation record ed. [address] [address], [place], [address], 12/08/2023 21:51:16 12/09/19 24 12/08/2023 CT, abdom en + pelvi s, w/ contr ast No observ ation record ed. [address] [address], [place], [address], 12/09/2023 21:30:46 Result Notes None recorded. Problems Name Problem SNOMED Code Status Onset Date Resolution Date Notes Provider Name and Address Organization Details Recorded Time SNOMED CT Concept Completed 201512/19/2020 Encntr for mail rider exam (general) (routine) w/o abn findings; Recorded Elsewhere : No Locati on: [facility] So urce: EHR Chron ic: N Practic e ID: 0001 Bill able Time: 11:30:00 AM Nannette Jim[facility] 15:20:55 Removal of intraute rine device Completed 201312/19/2020 REMOVAL OF IUD;Recor ded Elsewhere : No Locati on: [facility] So urce: EHR Chron ic: N Practic e ID: 0001 Bill able Time: 11:45:00 AM Nannette [facility] 15:20:50 Hematoch ezia [id number] Completed 201312/19/2020 Blood in stool;Rec orded Elsewhere : No Locati on: [facility] So urce: EHR Chron ic: N Practic e ID: 0001 Bill able Time: 08:30:00 AM Nannette Jim[facility] 15:20:42 Pregnanc y test negative [id number] Completed 201112/19/2020 examinati on or test, negative result;Re corded Elsewhere : No Locati on: [facility] So urce: EHR Chron ic: N Practic e ID: 0001 Bill able Time: 09:30:00 AM Nannette Jim[facility] 15:20:[address] Concept Completed 201612/19/2020 Encntr for general adult medical exam w/o abnormal findings; Recorded Elsewhere : No Locati on: [facility] So urce: EHR Chron ic: N Practic e ID: 0001 Bill able Time: 11:00:00 AM Nannette Jim[facility] 15:20:53 Pelvic and perineal pain [id number] Completed 201712/19/2020 Pelvic pain;Cristopher rded Elsewhere : No Locati on: [facility] So urce: EHR Chron ic: N Practic e ID: 0001 Bill able Time: 11:00:00 AM Nannette Jiménez [facility] 15:20:47 Increase d frequenc y of urinatio n [id number] Completed 201112/19/2020 Urinary frequency ;Recorded Elsewhere : No Locati on: [facility] So urce: EHR Chron ic: N Practic e ID: 0001 Bill able Time: 09:15:00 AM Nannette Jiménez [facility] 15:20:43 Screenin g for malignan t neoplasm of cervix Completed 201112/19/2020 Screening for malignant neoplasms of the cervix;Re corded Elsewhere : No Locati on: [facility] So urce: EHR Chron ic: N Practic e ID: 0001 Bill able Time: 09:15:00 AM Nannette Jiménez [facility] 15:20:52 Miscarri age [id number] Completed 201812/19/2020 Complete spontaneo us w/o complicat ion;Recor ded Elsewhere : No Locati on: [facility] So urce: EHR Chron ic: N Practic e ID: 0001 Bill able Time: 04:30:00 PM Nannette Jiménez [facility] 15:20:46 Speciali zed medical examinat ion Completed 201312/19/2020 Gynecolog ical Examinati on;Record ed Elsewhere : No Locati on: [facility] So urce: EHR Chron ic: N Practic e ID: 0001 Bill able Time: 08:30:00 AM Nannette Jiménez [facility] 15:20:56 Family planning surveill ance Completed 201312/19/2020 Contracep tive surveilla nce, unspecifi ed;Record ed Elsewhere : No Locati on: [facility] So urce: EHR Chron ic: N Practic e ID: 0001 Bill able Time: 08:45:00 AM Nannette Jim[facility] 15:20:34 Female genital organ symptoms [id number] Completed 201312/19/2020 Unspecifi ed symptom associate d with female genital organs;Re corded Elsewhere : No Locati on: [facility] So urce: EHR Chron ic: N Practic e ID: 0001 Bill able Time: 08:30:00 AM Nannette Jim[facility]nez [facility] 15:20:35 Acute vaginiti s [id number] Completed 201512/19/2020 Acute vulvovagi nitis;Rec orded Elsewhere : No Locati on: [facility] So urce: EHR Chron ic: N Practic e ID: 0001 Bill able Time: 11:30:00 AM Nannette Jim[facility]nez [facility] 15:20:29 Evaluati on finding Completed 201812/19/2020 Hematuria , unspecifi ed;Record ed Elsewhere : No Locati on: [facility] So urce: EHR Chron ic: N Practic e ID: 0001 Bill able Time: 04:30:00 PM Nannette Jim[facility] 15:20:32 Adult health examinat ion Completed 201112/19/2020 Routine Medical Exam;Cristopher rded Elsewhere : No Locati on: [facility] So urce: EHR Chron ic: N Practic e ID: 0001 Bill able Time: 09:30:00 AM Nannette Jim[facility] 15:20:30 Abdomina l pain [id number] Completed 201112/19/2020 Abdominal pain, other specified site;Cristopher rded Elsewhere : No Locati on: [facility] So urce: EHR Chron ic: N Practic e ID: 0001 Bill able Time: 03:00:00 PM Nannette Jim[facility]nez [facility] 15:20:25 Finding of menstrua l bleeding Completed 201912/19/2020 Menorrhag ia;Record ed Elsewhere : No Locati on: [facility] So urce: EHR Chron ic: N Practic e ID: 0001 Bill able Time: 03:30:00 PM Nannette Jiménez [facility] 15:20:37 Insertio n of intraute rine contrace ptive device Completed 201312/19/2020 INSERTION OF IUD;Recor ded Elsewhere : No Locati on: [facility] So urce: EHR Chron ic: N Practic e ID: 0001 Bill able Time: 08:00:00 AM Nannette Jiménez [facility] 15:20:45 Headache [id number] Completed 201312/19/2020 Headache; Recorded Elsewhere : No Locati on: [facility] So urce: EHR Chron ic: N Practic e ID: 0001 Bill able Time: 08:30:00 AM Nannette [facility] 15:20:40 Goiter [id number] Completed 201112/19/2020 Goiter, unspecifi ed;Record ed Elsewhere : No Locati on: [facility] So urce: EHR Chron ic: N Practic e ID: 0001 Bill able Time: 09:15:00 AM Nannette Jiménez [facility] 15:20:39 Problem Notes None recorded. Procedures Surgical History Date Name Laterality Status Provider Name and Address Organization Details Recorded Time 024 LAPAROSCOPIC OVARIAN CYSTECTOMY (SURG) completed [facility] 11/27/2023 09:28:27 024 LAPAROSCOPIC OVARIAN CYSTECTOMY (SURG) completed Emre Bradley [facility] 11/27/2023 09:28:14 023 hernia repair completed JOYA Becerra-BC [address], [place], [address], , P.C. 2023 11:19:54 022 procedure on colon completed Nannette Callahan [facility] 08/12/2022 11:39:06 022 Date of Last Mammogram completed Nikki Bee [facility] 01/29/2023 15:40:43 022 Date of Last Pap Smear completed Nikki Bee [facility] 01/29/2023 15:41:28 020 IUD Insertion completed Vidhi Garza [facility] [address], [place], [address], , [facility].C[facility] 12/22/2019 13:43:45 011 Appendectomy completed Arianne Craig [facility] 09/08/2021 12:19:53 009 section completed Ariannekasandra Craig [facility] 09/08/2021 12:20:23 005 [facility] 09/08/2021 12:19:46 005 varicose vein operation completed Ariannekasandra Craig [facility] 09/07/2021 17:57:58 002 section completed Arianne Craig [facility] 09/08/2021 12:20:31 001 Dilation and Curettage completed Ariannekasandra Craig [facility] 09/08/2021 12:20:05 980 transfusion of blood product completed Ariannekasandra Craig [facility] 09/08/2021 12:19:58 Imaging Results Imaging Date Name Status LastModified by Organization Details LastModified Time 04/29/2023 MAMMO, screening, bilateral completed [address] [address], [place], [address], 2023 11:18:12 05/12/2023 US, breast, unilateral completed [address] [address], [place], [address], 2023 11:18:12 10/13/2023 US, pelvis completed [email or web address], [place], [address], 10/13/2023 18:22:08 10/13/2023 US, transvaginal completed [email or web address] [facility] [address], [place], [address], 10/13/2023 18:21:54 10/13/2023 US, pelvis completed [email or web address], [place], [address], 10/14/2023 15:10:45 11/26/2023 XR, abdomen + pelvis completed [address] [address], [place], [address], 11/26/2023 21:53:59 11/28/2023 XR, chest, 1 view completed [address], [address], 12/16/2023 14:57:21 11/28/2023 XR, chest, 1 view completed [address], [address], 12/16/2023 14:56:54 11/28/2023 CT, chest + abdomen + pelvis, w/o contrast completed [address], [address], 12/16/2023 12:10:37 11/28/2023 CT, chest + abdomen + pelvis, w/o contrast completed [address] [facility], [place], [address], 12/16/2023 12:10:14 11/29/2023 CT, chest + abdomen + pelvis, w/o contrast completed [address], [place], [address], 12/16/2023 12:09:45 11/29/2023 trans-thoracic echocardiogram (TTE) (PROC) completed [address], [address], 12/11/2023 16:39:34 11/29/2023 CT, angiogram, chest, w/o contrast completed [address] [address], [place], [address], 12/11/2023 16:37:34 11/29/2023 XR, abdomen + pelvis completed [address] [address], [place], [address], 12/11/2023 16:02:26 11/30/2023 XR, chest, 1 view completed [address] [place] [address], [address], 12/11/2023 15:57:33 12/05/2023 CT, abdomen + pelvis, w/o contrast completed [address] [place] [address], [address], 12/11/2023 16:20:23 12/05/2023 insertion of temporary indwelling bladder catheter, complicated (PROC) completed [address], [address], 12/11/2023 16:05:38 12/08/2023 CT, abdomen + pelvis, w/ contrast completed [address], [address], 12/08/2023 21:51:16 12/08/2023 CT, abdomen + pelvis, w/ contrast completed [address] [facility] [address], [place], [address], 12/09/2023 21:30:46 Procedure Notes None recorded. Medical Equipment None Reported. Allergies Allergen ID Allergen Name Allergen Category Reaction Reaction Severity Criticality Documentation Date Start Date Code Code System Note Provider Name and Address Organization Details Recorded Time 73242 Gluten (substanc e) food,medi cation abdominal pain severe Not available 12/19/2020 51143 004 SNOMED Nannette Jiménez [facility] 1 15:15:52 827 Iodinated contrast media (substanc e) medicatio n cough moderate Not available 12/21/2019 79315 2004 SNOMED Shelbi Viola [facility] 0 15:23:38 Medications Name Sig Start Date Stop Date Status Note LastModified by Organization Details LastModified Time eq clearlax 17 gm/scoop powd 12/20 completed Not Available Not Available Not Available losartan 50 mg tablet TAKE 1 TABLET BY MOUTH ONCE DAILY active Not Available Not Available No t Available Mirena 21 mcg/24 hr (up to 8 years) 52 mg intrauter ine device Take by intraute rine route. active Not Available Not Available No t Available lamotrigi ne 150 mg tablet TAKE 1 TABLET BY MOUTH TWICE DAILY active Not Available Not Available No t Available doxycycli ne hyclate 100 mg capsule take 1 capsule (100MG) by oral route every day 10/30 completed Prescrib ed Elsewher e: Yes Loca tion: [facility] M odify By: cheyenne thorpe DateTime : 05/12/20 12 09:30:00 AM Not Available Not Available Not Available erythromy elan 500 mg tablet TAKE 2 TABLETS BY MOUTH AT 1 PM, 2 PM AND 11 PM 08/12 completed Not Available Not Available Not Available azithromy elan 250 mg tablet TAKE 2 TABLETS BY MOUTH ON DAY 1, AND THEN TAKE 1 TABLET BY MOUTH ONCE A DAY ON DAY 2 THROUGH DAY 5 01/15 completed Not Available Not Available Not Available ibuprofen 800 mg tablet take 1 tablet (800MG) by oral route 3 times every day with food 10/30 completed Prescrib estephania Adan e: Yes Loca tion: Sylviasydney peñaloza [facility] odjaspal By: cheyenne dickersoni Triston thorpe DateTime : 05/12/20 12 09:30:00 AM Not Available Not Available Not Available fluconazo le 150 mg tablet take 1 tablet by oral route once 12/20 completed Not Available Not Available Not Available benzonata te 200 mg capsule TAKE 1 CAPSULE BY MOUTH THREE TIMES DAILY NEEDED FOR COUGH 01/15 completed Not Available Not Available Not Available hydrocodo ne 5 mg-acetam inophen 325 mg tablet TAKE 1 TABLET BY MOUTH EVERY 6 HOURS NEEDED FOR PAIN 08/12 completed Not Available Not Available Not Available fluconazo le 200 mg tablet TAKE 1 TABLET BY MOUTH EVERY OTHER DAY 01/15 completed Not Available Not Available Not Available metronida zole 0.75 % (37.5 mg/5 gram) vaginal gel insert 1 applicat orful by vaginal route every day at bedtime x 5 nights 08/12 completed Not Available Not Available Not Available clobetaso l 0.05 % topical cream APPLY CREAM TOPICALL Y TWICE DAILY FOR 7 DAYS 11/20 completed Not Available Not Available Not Available metronida zole 500 mg tablet 08/12 completed Not Available Not Available Not Available acetamino phen 300 mg-codein e 30 mg tablet 01/15 completed Not Available Not Available Not Available amlodipin e 5 mg tablet TAKE 1 TABLET BY MOUTH AT BEDTIME active Not Available Not Available No t Available ciproflox acin 500 mg tablet take 1 tablet (500MG) by oral route every 12 hours 08/12 completed Not Available Not Available Not Available peg-elect rolyte solution 420 gram oral solution TAKE DIRECTED BY OFFICE 08/12 completed Not Available Not Available Not Available omeprazol e 40 mg capsule,d elayed release TAKE 1 CAPSULE BY MOUTH ONCE DAILY active Not Available Not Available No t Available tramadol 50 mg tablet TAKE 1 TABLET BY MOUTH EVERY 6 HOURS NEEDED FOR PAIN 08/12 completed Not Available Not Available Not Available oxycodone -acetamin ophen 5 mg-325 mg tablet TAKE 1 TABLET BY MOUTH EVERY 4 HOURS NEEDED FOR PAIN 10/01 completed Not Available Not Available Not Available amitripty line 25 mg tablet TAKE 1 TABLET BY MOUTH EVERY DAY AT BEDTIME active Not Available Not Available No t Available amitripty line 10 mg tablet TAKE 1 TABLET BY MOUTH ONCE DAILY AT BEDTIME 01/29 completed Not Available Not Available Not Available pantopraz ole 40 mg tablet,de layed release TAKE 1 TABLET BY MOUTH TWICE DAILY active Not Available Not Available No t Available prednison e 50 mg tablet TAKE ONE TABLET BY MOUTH [address] SCAN THEN 1 TAB [address] SCAN THEN 1 TAB [address] SCAN 10/01 completed Not Available Not Available Not Available promethaz ine 25 mg tablet TAKE 1/2 (ONE-AMBER F) TABLET BY MOUTH EVERY 6 HOURS NEEDED 08/12 completed Not Available Not Available Not Available losartan 25 mg tablet Take 1 tablet every day by oral route. 10/01 completed Not Available Not Available Not Available hydrochlo rothiazid e 12.5 mg capsule take 2 capsule by oral route every day 12/26 completed Prescrib ed Elsewher e: Yes Loca tion: [facility] odify By: taylor roberts DateTime : 11/03/19 14 08:30:00 AM Not Available Not Available Not Available docusate sodium 100 mg capsule TAKE 1 CAPSULE BY MOUTH TWICE DAILY 08/12 completed Not Available Not Available Not Available betametha sone, augmented 0.05 % topical ointment APPLY TOPICALL Y TWICE DAILY NEEDED FOR ITCHING 12/19 completed Not Available Not Available Not Available monteluka st 10 mg tablet TAKE 1 TABLET BY MOUTH AT BEDTIME 08/12 completed Not Available Not Available Not Available irbesarta n 150 mg tablet 01/25 completed Not Available Not Available Not Available levofloxa elan 500 mg tablet take 1 tablet (500MG) by oral route every 24 hours 10/30 completed Prescrib ed Elsewher e: Yes Loca tion: [facility] M odify By: cheyenne Quano ila DateTime : 05/12/20 12 09:30:00 AM Not Available Not Available Not Available methylpre dnisolone 4 mg tablets in a dose pack TAKE BY MOUTH DIRECTED ON INSIDE OF PACKAGE 01/15 completed Not Available Not Available Not Available neomycin 500 mg tablet TAKE 2 TABLETS BY MOUTH AT 1 PM, 2 PM, AND 11 PM 08/12 completed Not Available Not Available Not Available albuterol sulfate HFA 90 mcg/actua tion aerosol inhaler INHALE 2 PUFFS BY MOUTH EVERY 4 HOURS NEEDED FOR SHORTNES S OF BREATH AND FOR WHEEZING 08/12 completed Not Available Not Available Not Available ipratropi um bromide 42 mcg (0.06 %) nasal spray 12/20 completed Not Available Not Available Not Available losartan 100 mg tablet TAKE 1 TABLET BY MOUTH ONCE DAILY 08/12 completed Not Available Not Available Not Available fluticaso ne propionat e 50 mcg/actua tion nasal spray,zachary pension 12/20 completed Not Available Not Available Not Available metoclopr amide 10 mg tablet 01/15 completed Not Available Not Available Not Available amoxicill in 875 mg-potass ium clavulana te 125 mg tablet 12/20 completed Not Available Not Available Not Available escitalop melchor 10 mg tablet 12/20 completed Not Available Not Available Not Available metformin ER 1,000 mg tablet,ex tended release 24hr (osmotic) take 1 tablet by oral route every day with the evening meal 01/12 completed Prescrib ed Elsewher e: Yes Loca tion: [facility] odify By: artur E ncounter DateTime : 01/01/20 16 11:30:00 AM Not Available Not Available Not Available nitrofura ntoin monohydra te/macroc rystals 100 mg capsule TAKE 1 CAPSULE BY MOUTH EVERY 12 HOURS WITH A MEAL FOR 5 DAYS WITH MEALS 10/01 completed Not Available Not Available Not Available Flovent HFA 44 mcg/actua tion aerosol inhaler inhale 2 puff by inhalati on route 2 times every day 01/12 completed Prescrib ed Elsewher e: Yes Loca tion: [facility] odify By: [email or web address] E ncounter DateTime : 12/27/19 15 02:00:00 PM Not Available Not Available Not Available B Complex 100 01/15 completed Not Available Not Available Not Available B Complex 1.7 mg-20 mg-2 mg-1.2 mg/mL sublingua l liquid 12/19 completed Prescrib ed Elsewher e: Yes Loca tion: [facility]uan pe[facility]alo[facility] odify By: parker estrella DateTime : 01/01/20 16 11:30:00 AM Not Available Not Available Not Available Allergy Relief (cetirizi ne) 12/19 completed Not Available Not Available Not Available lamotrigi ne ER 25 mg tablet,ex tended release 24 hr 12/19 completed Prescrib ed Elsewher e: Yes Loca tion: Vipul peñaloza [facility] odify By: parker estrella DateTime : 01/01/20 16 11:30:00 AM Not Available Not Available Not Available Melissa Allergy active Not Available Not Available Not Available Multivita mins 28 mg iron-800 mcg tablet 01/12 completed Prescrib ed Elsewher e: Yes Loca tion: [facility] pe[facility]alo[facility] odify By: artur estrella DateTime : 01/01/20 16 11:30:00 AM Not Available Not Available Not Available Allergy Relief-Si nus Headache 25 mg-5 mg-325 mg tablet 08/12 completed Prescrib ed Elsewher e: Yes Loca tion: [facility]alo[facility] odify By: taylor roberts DateTime : 12/27/19 15 02:00:00 PM Not Available Not Available Not Available Eliquis 5 mg tablet TAKE 1 TABLET BY MOUTH TWICE DAILY FOR 3 MONTHS STARTING 05/01 completed Not Available Not Available Not Available Anusol-HC 2.5 % topical cream with perineal applicato r apply by topical route 2 times every day to the affected area(s) 12/26 completed Prescrib ed Elsewher e: No Locat ion: [facility] anabel[facility] odify By: taylor roberts DateTime : 11/03/19 14 08:30:00 AM Not Available Not Available Not Available Vitals Date Recorded Body height Body mass index (BMI) Body weight Provider Name and Address Organization Details Last Updated DateTime 01/29/2023 170.18 cm 36.3 kg/m2 307199.43 g Nikki Bee [facility] 01/29/2023 15:40:29 Date Recorded Systolic blood pressure Diastolic blood pressure Provider Name and Address Organization Details Last Updated DateTime 01/29/2023 132 mm[Hg] 84 mm[Hg] Vidhi Garza, [facility] [address], [place], [address], [facility] 01/29/2023 18:44:26 Date Recorded Body height Body mass index (BMI) Body weight Provider Name and Address Organization Details Last Updated DateTime 2023 170.18 cm 36.8 kg/m2 486542.21 g Opal Ibrahim [facility] 2023 10:49:08 Date Recorded Systolic blood pressure Diastolic blood pressure Provider Name and Address Organization Details Last Updated DateTime 2023 132 mm[Hg] 78 mm[Hg] Vidhi Garza, [facility] [address], [place], [address], [facility] 2023 11:18:12 Date Recorded Body height Body mass index (BMI) Body weight Systolic blood pressure Diastolic blood pressure Provider Name and Address Organization Details Last Updated DateTime 10/24/2023 170.18 cm 37.3 kg/m2 680437.9 8 g 146 mm[Hg] 85 mm[Hg] Nannette Callahan [facility] 12:39:10 Date Recorded Body height Body mass index (BMI) Body weight Systolic blood pressure Diastolic blood pressure Provider Name and Address Organization Details Last Updated DateTime 11/21/2023 170.18 cm 37.6 kg/m2 170251.1 7 g 138 mm[Hg] 82 mm[Hg] Linda Escobar [facility] 12:15:16 Social History Question Answer Notes LastModified by Organizat ion Details LastModified Time Tobacco Smoking Status Never Smoker Nikki Bee [facility] 01/29/2023 15:40:47 Do You Have An Advance Directive? Yes Information not available 12/19/2020 What Is Your Level Of Alcohol Consumption? Occasional Information not available 12/19/2020 How Many Years Have You Consumed Alcohol? 26 Information not available 12/19/2020 Are You Blind Or Do You Have Difficulty Seeing? No Information not available 12/19/2020 What Is Your Level Of Caffeine Consumption? Moderate Information not available 12/19/2020 How Much Tobacco Do You Chew? None Information not available 12/19/2020 In The 14 Days Before Symptom Onset, Have You Had Close Contact With A Laboratory-confir med COVID-19 While That Case Was Ill? No Information not available 12/19/2020 In The 14 Days Before Symptom Onset, Have You Had Close Contact With A Person Who Is Under Investigation For COVID-19 While That Person Was Ill? No Information not available 12/19/2020 Have You Been To An Area Known To Be High Risk For COVID-19? No Information not available 12/19/2020 Are You Currently Employed? Yes [email or web address] Information not available 11/21/2023 Are You Deaf Or Do You Have Serious Difficulty Hearing? No Information not available 12/19/2020 What Type Of Diet Are You Following? GLUTENFREE Information not available 12/19/2020 What Is The Highest Grade Or Level Of School You Have Completed Or The Highest Degree You Have Received? 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 Yes Information not available 08/14/2021 Have You Ever Been Counseled For Unhealthy Alcohol Use? No Information not available 01/29/2023 Do You Use Protection During Sex? No Information not available 12/19/2020 Do You Use Your Seat Belt Or Car Seat Routinely? Yes Information not available 12/19/2020 Are You Sexually Active? Yes Information not available 11/21/2023 Do You Have Smoke And Carbon Monoxide Detectors In Your Home? Yes Information not available 12/19/2020 At What Age Did You Start Smoking Tobacco? 14 Information not available 12/19/2020 How Much Tobacco Do You Smoke? No Information not available 12/19/2020 Do You Feel Stressed (tense, Restless, Nervous, Or Anxious, Or Unable To Sleep At Night)? [id number] Information not available 08/14/2021 Do You Use Any Illicit Or Recreational Drugs? No Information not available 12/19/2020 Do You Use Sunscreen Routinely? No Information not available 12/19/2020 Has Tobacco Cessation Counseling Been Provided? No Information not available 01/29/2023 How Many Years Have You Smoked Tobacco? 8 Information not available 12/19/2020 Have You Used IV Drugs? No Information not available 12/19/2020 Do You Or Have You Ever Used Any Other Forms Of Tobacco Or Nicotine? No Information not available 01/29/2023 Sex: Unknown Functional Status Question Answer Note LastModified by Organizat ion Details LastModified Time Do you have difficulty walking or climbing stairs? No Information not available 01/29/2023 Are you able to walk? YESWOREST Information not available 12/19/2020 Are you able to care for yourself? Yes Information not available 01/29/2023 Do you have difficulty dressing or bathing? No Information not available 01/29/2023 What is your exercise level? Occasional Information not available 12/19/2020 Mental Status None recorded. Family History Relationship Description Onset Age of this Age Resolved Age Notes LastModified by Organization Details LastModified Time Maternal Grandmother Carcinoma in situ of breast 60 [email or web address] Not available 09/08 12:20:54 Medical History Condition Response Allergies (Food, seasonal, environmental ) Y Other Y Breast Cancer N Drug/Latex Allergies/Reactions Y Blood Transfusion Y Lung Disease N Dermatologic Disorders N Defects or Inherited Disease N Breast Problem N Gestational Diabetes N Hematologic disorders Y Anesthesia Complications N History of STI N Deep Vein Thrombosis N Polycystic ovary syndrome N Anxiety Disorder Y Autoimmune disease N Arthritis Y Infertility N Polyps N Acid Reflux (GERD) Y History of abnormal pap N Cancer N Stroke N Varicosities N Neurologic/Epilepsy Y Endometriosis N High Cholesterol N Headaches N Fibromyalgia N Kidney Disease N Heart Problems N Kidney or Bladder Problems N Thyroid Problems N GI Problems Y Eating Disorder N Anemia N Art (IVF or FET) N Psychiatric Illness N Ovarian Cancer N Diabetes N Pulmonary (TB, Asthma) N Hepatitis/Liver Disease N No Past Medical History N Eczema Y Urinary Tract Infection N Abuse/Domestic Violence N Asthma N Trauma/Violence N Depression/ depression Y Heart Disease N Pre-Eclampsia N Hypertension N Osteoporosis N Thrombophilias N Gynecological History Statement/Question Response Abnormal Pap N Date of Last Mammogram 02/09/2022 On BCP's at Conception? N N Was last menstrual period normal Y STIs/STDs N HPV Vaccine N Current Control Method IUD Age at First Child 21 Most Recent Bone Density Sexually Active? Y Menses Monthly N Age of first menstrual cycle 10 Date of Last Pap Smear 01/15/2022 Sexual Problems? N Desired Control Method IUD LMP Unknown N Obstetrics History GPAL:G 4 P 2 0 2 2 Type Value Full Term 2 Spontaneous 2 Living 2 Total 4 Past Encounters Encounter ID Performer Location Encounter Start Date Encounter Closed Date Diagnosis/Indication Diagnosis SNOMED-CT Code Diagnosis ICD10 Code Diagnosis Note [id number] Clyde Lopez MD [facility] [address] [address] 12/21/2019 15:11:35 12/21/2019 16:17:05 Contraception care management 081557672 Z30.9 Abnormal u terine bleeding [id number] 9100 N93.9 this patient is a 39-year-ol d female who presents for abdominal pain/sever e menorrhagi a. The patient's symptoms are confounded by recent episode of diverticul itis. She was in the emergency department for abdominal pain. We discussed her abdominal pain today in great detail and her severe menorrhagi a. Her bleeding has a profound effect on her quality of life and activities of daily living. We have agreed to place another Mirena. We spent over 45 minutes face-to-fa ce discussing various aspects of her care. More than 50% of contact with the patient was in counseling . We agreed to place the Mirena. Patient is still considerin g . She has hypertensi on, seizure disorder, diverticul itis, umbilical hernia. She will follow-up for Mirena insertion later this week. Diverticul osis of sigmoid colon 878400691 K57.30 This patient is a 39-year-ol d female with a recent episode of diverticul itis.This we agreed to obtain GI consult. [id number] Vidhi Garza [facility] [address] [address] 12/22/2019 10:16:55 12/31/2019 15:52:46 test negative [id number] Z32.02 Insertion of intrauterine contraceptive device 70423054 Z30.430 She states the symptoms are unchanged. Patient is on her cycle and here for IUD placement. She has been counseled on all of the r/b/a of placement of an intrauteri ne device that include but are not limited to uterine perforatio n, injury to cervix, vagina, bladder, and bowel.Risk s of bleeding due to injury or increased irregular bleeding due to progestin effect of the device. Risks of infection would be increased within the first 21 days of placement with concommite nt cervicitis . She understand s that the device will need to be removed in this instance due to increased risk of Pelvic inflammato ry disease. Patient is aware she is at highter risk for STD and if contracted she could lose her fertility. Pt is aware that if ocurs that she should contact office immediatel y to rule out ectopic which could be life threatenin g. IUD will also need to be removed and this could cause miscarriag e. Patient also informed that in the event her strings are absent or embedded at the time of removal she may need to have the IUD surgically removed. She was informed of the above and properly consented. IUD placed w/o complicati on. Patient should return to office after next period to check for string placement. Patient to expect irregular bleeding but should be seen in the ED if bleeding increases to soaking a pad an hour for at least 2 hours. She verbalized understand ing. RTO x 6wks [id number] Vidhi Garza [facility] [address] [address] 01/26/2020 11:53:20 01/26/2020 12:19:35 Intrauterine device check 032646525 Z30.431 Patient is here today for 4wk IUD string check. She reports she is doing well after placement of this device. She is eating/dri nking/slee ping well. She has no adverse side effects from use of this device. She wishes to continue this therapy. Time spent in visit is a total of 15 mins with at least 50% of visit consisting of counseling and review of plan of care. [id number] Vidhi Garza [facility] [address],[facility] [place] [address] 12/19/2020 14:43:42 12/19/2020 17:38:54 Gynecologic examination 50822706 Z01.419 Suggested Calcium with Vitamin D 1200-1500m g daily. Patient advised to get an annual flu shot in the fall and she could obtain at [facility] or [facility] clinic. Also to obtain TDap vaccinatio n if you have not had one in the last 10 years. Recommend yearly mammograms . Encouraged monthly self breast exams. Encourage safe sexual practices, to use condoms and limit partners if not already in a monogamous relationsh ip. Engage in daily exercise of low impact aerobic exercise 45-60 minutes 4-5 times weekly. Avoid tobacco and illicit drugs as well as using moderation with alcohol intake less than 1-2 8 oz beverages daily. This lifestyle behavior pattern will lead to less health conditions and longer life span. If BMI greater than 25 weight watchers or dietary consult advised. All questions have been answered. Patient appears to understand informatio n, but if you have any questions please call or respond to this email. Pap/hpv sent Decline std CBE done Mammo ordered No issues or concerns Happy with IUD. Screening mammography 24 018311 Z12.31 [id number] Vidhi Garza [facility] [address],[facility] [place] [address] 08/14/2021 13:17:29 08/15/2021 09:14:30 Abnormal uterine bleeding 1529764066 9100 N93.9 Today we agreed to update a vaginal US and include lab work for AUB to evaluation of other issues that could contribute to unintentio nal weight loss. She will return for US & then f/u to discuss results. Consider counseling moving forward. Time spent in visit is a total of 24 mins with at least 50% of visit consisting of counseling and review of plan of care.Addit ional precaution flaco measures were taken to minimize potential exposure to the Covid-19 virus during this patient s visit, including available hand crown buffer upon arrive, temperatur e check and being asked a series of screening questions. All staff wore face coverings during this encounter, as well as provided additional cleaning and sanitizing of all surfaces, including countertop s, pens, chairs, door handles, light switches, etc, prior to and following the patient s visit. [id number] Liya Young [facility] [address] [address] 08/31/2021 12:12:31 08/31/2021 12:57:05 Abnormal uterine bleeding [id number] 9100 N93.9 this patient is a 39-year-ol d female who presents for abdominal pain/sever e menorrhagi a. The patient's symptoms are confounded by recent episode of diverticul itis. She was in the emergency department for abdominal pain. We discussed her abdominal pain today in great detail and her severe menorrhagi a. Her bleeding has a profound effect on her quality of life and activities of daily living. We have agreed to place another Mirena. We spent over 45 minutes face-to-fa ce discussing various aspects of her care. More than 50% of contact with the patient was in counseling . We agreed to place the Mirena. Patient is still considerin g . She has hypertensi on, seizure disorder, diverticul itis, umbilical hernia. She will follow-up for Mirena insertion later this week. [id number] [facility] Garza [facility] [address] [address] 09/08/2021 11:54:55 09/10/2021 10:29:48 Vaginitis 33451517 N76.0 Treated for BV with extended BV/Yeast panels sent.Recom mend VCG's and possibly restarting Boric acid/addin g in Vaginal gel probiotic by [employer] . Understand ing verbalized . Time spent in visit is a total of 24 mins with at least 50% of visit consisting of counseling and review of plan of care.Addit ional precaution flaco measures were taken to minimize potential exposure to the Covid-19 virus during this patient s visit, including available hand crown buffer upon arrive, temperatur e check and being asked a series of screening questions. All staff wore face coverings during this encounter, as well as provided additional cleaning and sanitizing of all surfaces, including countertop s, pens, chairs, door handles, light switches, etc, prior to and following the patient s visit. Abnormal u terine bleeding [id number] 9100 N93.9 Today we agreed to update a vaginal US and include lab work for AUB to evaluation of other issues that could contribute to unintentio nal weight loss. She will return for US & then f/u to discuss results. Consider counseling moving forward. Time spent in visit is a total of 24 mins with at least 50% of visit consisting of counseling and review of plan of care.Addit ional precaution flaco measures were taken to minimize potential exposure to the Covid-19 virus during this patient s visit, including available hand crown buffer upon arrive, temperatur e check and being asked a series of screening questions. All staff wore face coverings during this encounter, as well as provided additional cleaning and sanitizing of all surfaces, including countertop s, pens, chairs, door handles, light switches, etc, prior to and following the patient s visit. [id number] Vidhi Garza , [facility] [address] [address] 01/15/2022 15:24:35 01/15/2022 16:50:21 Gynecologic examination 03424019 Z01.419 Z11.51 Suggested Calcium with Vitamin D 1200-1500m g daily. Patient advised to get an annual flu shot in the fall and she could obtain at [facility]. Also to obtain TDap vaccinatio n if you have not had one in the last 10 years. Recommend yearly mammograms . Encouraged monthly self breast exams. Encourage safe sexual practices, to use condoms and limit partners if not already in a monogamous relationsh ip. Engage in daily exercise of low impact aerobic exercise 45-60 minutes 4-5 times weekly. Avoid tobacco and illicit drugs as well as using moderation with alcohol intake less than 1-2 8 oz beverages daily. This lifestyle behavior pattern will lead to less health conditions and longer life span. If BMI greater than 25 weight watchers or dietary consult advised. All questions have been answered. Patient appears to understand informatio n, but if you have any questions please call or respond to this email. Pap/hpv sentSTD Screen declinedGe netic Screen discussedC olon Screen UTD (Has Celiac's)D exa Screen naRoutine Labs UTD PCPMammo orderedA Mirena IUD prevents for up to 7 years, and also helps with heavy periods for up to 5 years in women who choose an IUD for control. Vaginitis 37871983 N76.0 [id number] Vidhi Garza [facility] [address],[place] [address] 08/12/2022 11:23:09 08/12/2022 12:10:15 Abnormal uterine bleeding 4703989018 9100 N93.9 Today we will schedule to update US & will reach out with results to determine next steps in POC. Patient is to contact office or go to nearest ED/Urgent care if fever >/= 100.1, pain, excessive bleeding, unusual drainage or swelling in area of concern; or experienci ng worsening sx's or new onset of concerning sx's. Understand ing verbalized . All questions answered to patient satisfacti on. Time spent in visit is a total of 15 mins with at least 50% of visit consisting of counseling and review of plan of care. [id number] Liya Young [facility] [address],[place] [address] 08/14/2022 10:57:43 08/14/2022 13:17:55 Abnormal uterine bleeding 8157674673 9100 N93.9 [id number] aLna Jiménez [facility] [address],[place] [address] 10/08/2022 11:44:00 10/08/2022 12:32:49 Cyst of right ovary [id number] 2437597 N83.291 [id number] Vidhi Garza [facility] [address],[place] [address] 01/29/2023 15:26:23 01/30/2023 10:34:44 Gynecologic examination 04607783 Z01.419 Z11.51 Suggested Calcium with Vitamin D 1200-1500m g daily. Patient advised to get an annual flu shot in the fall and she could obtain at [facility] or [facility] clinic. Also to obtain TDap vaccinatio n if you have not had one in the last 10 years. Recommend yearly mammograms . Encouraged monthly self breast exams. Encourage safe sexual practices, to use condoms and limit partners if not already in a monogamous relationsh ip. Engage in daily exercise of low impact aerobic exercise 45-60 minutes 4-5 times weekly. Avoid tobacco and illicit drugs as well as using moderation with alcohol intake less than 1-2 8 oz beverages daily. This lifestyle behavior pattern will lead to less health conditions and longer life span. If BMI greater than 25 weight watchers or dietary consult advised. All questions have been answered. Patient appears to understand informatio n, but if you have any questions please call or respond to this email.Pap/ hpv sentSTD Screen declinedGe netic ScreenColo n ScreenDexa ScreenRout ine LabsMammo ordered Screening mammography 24 542084 Z12.31 [id number] [facility] [address] [address] 2023 10:40:49 2023 11:35:16 Perimenopausal disorder 373983618 N95.9 Today we discussed starting wtih Veozah (non-HRT) but we will not necessaril y exclude estrogen use moving forward; but would need to be very cautious. Can re-evaluat e moving forward. Hot flashesNig ht sweatsWill further discuss when f/u US.Will need CMP to check liver enzymes. We discussed trial of a newer medication called Veozah.Inf ormation was reviewed, H/O given for additional home review.Pos sible SE's include: Stomach pain, diarrhea, insomnia, back pain, hot flashes/fl ushes. Call right away if you experience : Nausea, vomiting, yellowing of eyes/skin, pain in upper right quadrant of abd. These are emergent issues that need to be checked out if experience d after initiating this medication . A baseline CMP that includes liver function/b ilirubin levels needs to be obtained prior to starting this medication ; liver disease/ki dney diseases are contraindi cations to use of this product. Understand ing verbalized . Time spent in visit is a total of 30 mins with at least 50% of visit consisting of counseling and review of plan of care. Lack or lo ss of sexual desire [id number] F52.0 Trial of testim [facility] seline total testostero ne sentWill need 3mos f/u med checkWill re-evaluat e and decide if need to add or switch to addyi/Vyle oliver. Pain in pelvis 80785383 R10.2 US TVUS scheduledW Ill update and reach out to decide f/u. Patient is to contact office or go to nearest ED/Urgent care if fever >/= 100.1, pain, excessive bleeding, unusual drainage or swelling in area of concern; or experienci ng worsening sx's or new onset of concerning sx's. Understand ing verbalized . All questions answered to patient satisfacti on. [id number] Shana Rosen [place] [address] [address] 10/13/2023 16:16:21 10/13/2023 17:18:44 Pain in pelvis 20119163 R10.2 [id number] Clyde Lopez MD [place] [address] [address] 10/24/2023 11:52:41 10/24/2023 15:17:12 Cyst of ovary [id number] N83.209 43-year-ol d female with painful ovarian cyst. We reviewed the images together together. We talked about the nature of the cyst. It appears to be a hemorrhagi c cyst. There maybe 2 cyst there with a septation or wall between them. Talked about treatment options. Talked about observatio n. She has had pain for more than a month. We have agreed to perform ovarian cystectomy or oophorecto my. We will obtain tumor markers and proceed. I spent more than 40 minutes with the patient discussing procedure, ovarian cysts, the etiology, natural history, treatment of. Talked about risk. We agreed to move forward with laparoscop ic left ovarian cystectomy . We made a decision to perform surgery. [id number] Clyde Lopez MD [place] [address] [address] 11/21/2023 11:49:26 11/21/2023 12:45:19 Pain in pelvis [id number] R10.2 Cyst of ovary [id number] N 83.209 43-year-ol d female with painful ovarian cyst. . We agreed to move forward with laparoscop ic left ovarian cystectomy . We made a decision to perform surgery. she understand s risks, benefits, and alternativ es. She is completed the informed consent process and is ready to proceed. Health Concerns Section Related Observation LastModified by Organization Detai ls LastModified Time None Recorded Concern Status LastModified by Organization Details LastModified Time None Recorded Advance Directives Directive Y: Payers Encounter Date Sequence Insurance Name Policy Number Policy Jurado Covered Member ID Jurado Member ID Guarantor Name 01/29/2023 2 [place] [facility] [place] [facility] Devi Kassly [id number] Devi T Kassly 01/29/2023 1 UMR [id number] Herrera J Kassly [id number] Devi T Kassly 2023 2 [place] [facility] [place] [facility] [place] Devi Kassly [id number] Devi T Kassly 2023 1 UMR [id number] Herrera J Kassly [id number] Devi T Kassly 10/13/2023 2 [place] [facility] [place] [facility] [place] Devi Kassly [id number] Devi T Kassly 10/13/2023 1 UMR [id number] Herrera J Kassly [id number] Devi T Kassly 10/24/2023 2 [place] [facility] [place] [facility] Devi Kassly [id number] Devi T Kassly 10/24/2023 1 UMR [id number] Herrera J Kassly [id number] Devi T Kassly 11/21/2023 1 UMR [id number] Herrera J Kassly [id number] Devi T Kassly Notes Date Note Type Note Provider Name and Address Organization Details Recorded Time 3 text/html Annual GYNReported bypatient.Menstrual cycle:Normal menses (Amenorrheic on IUD) Urinary symptoms:No hematuria; No incontinence Vulva:No genital lesion Vagina:Normal vaginal discharge Breast:No breast pain; No breast lump; No nipple discharge Current Contraception:Satisfie d with current contraception; Intrauterine device (iud) Sexual complaints:No sexual complaints; No pain during intercourse; Normal libido Menopausal Symptoms:No menopausal symptoms; Normal vaginal lubrication Psychological symptoms:No depression; No anxiety; No PMDD Preventive measures:Encourage self breast examination; Encourage regular exercise; Encourage no tobacco use; Encourage regular mammograms starting age 40; Followed with yearly pap smears; Needs to schedule mammogram Vidhi Garza [facility] [address], [place], [address], , [facility] 01/29/2023 18:45:40 4 text/html MenopauseReported bypatient.Onset/Timing :1-6 months Quality:night sweats; sleep issues; hot flashes ; affects quality of life Severity:moderate Duration:intermittent Context:current contraception: (mirena IUD) Alleviating Factors:none Aggravating Factors:poor sleep; heat; stress Associated Symptoms:no abdominal pain; no abnormal bleeding; no vaginal discharge; no dysuria; no dispareunia; no fever; no vaginal dryness; no irritability; no depression; no anxiety; no skin changes; no loss of libido; no changes in urination;pelvic pain(x 2mos a feeling of cramping but neg AUB) Vidhi Garza [facility] [address], [place], [address], , P[facility] 2023 11:34:58 4 text/html 43-year-old female with painful ovarian cyst. We reviewed the images together together. We talked about the nature of the cyst. It appears to be a hemorrhagic cyst. There maybe 2 cyst there with a septation or wall between them. Talked about treatment options. Talked about observation. She has had pain for more than a month. We have agreed to perform ovarian cystectomy or oophorectomy. We will obtain tumor markers and proceed. I spent more than 40 minutes with the patient discussing procedure, ovarian cysts, the etiology, natural history, treatment of. Talked about risk. We agreed to move forward with laparoscopic left ovarian cystectomy. We made a decision to perform surgery. Clyde Lopez MD [address], [place], [address], , P[facility] 10/24/2023 15:15:18 4 text/html 43-year-old female with pelvic pain and ovarian cyst. we have agreed to perform laparoscopic ovarian cystectomy. The patient understands the procedure. The procedure was described to the patient in great detail. the patient also understands the risks. The risks were also explained in detail. She understands that injuries May occur during surgery. She understands these injuries can result in hospitalization, more surgery, and severe illness. She understands there is risk of hemorrhage and infection. Clyde Lopez MD [address], [place], [address], , P[facility] 11/21/2023 12:43:15 OBGyn Episode Ob Episode Information Episode Created Date Number of Fetuses Patient Bloodtype Patient rh Status Prepregnancy Weight lbs Domestic Partner Domestic Partner Phone Father Name Professor Of Biological Sciences Status 12/21/19 20 1 CLOSED Fetus Data First Name Last Name Admitted to NICU Weight (g) Sex Living Outcome Pediatric Complications Fetus ID Race Codes Race Delivery Type 3770.25 6704 F Full Term 1920 Primary Chaparro Calculation Initial Chaparro Date Initial Exam Date Initial Exam Provider Initial Ultrasound Date Last Menstrual Period Date Ultra Sound Weeks Gestation 0 Eighteen To Twenty Week Chaparro Update Ultra Sound Date Fundal Height At Umbil Quickening Date Ultra Sound Latest Weeks Gestation Final Chaparro Confirmed By Final Chaparro Confirmed Date Final Chaparro Date Ultra Sound Latest Days Gestation 0 0 Menstrual History Last Menstrual Date Menses Monthly On Bcp Conception Prior Menses Frequency Hcg Plus Date Menarche Onset Age Delivery Information Delivery Date Delivery Type Labor Anesthesia Weeks Gestation Incision Type Labor Labor Length Hrs Delivered By Post Complications Tubal Sterilization Discharge Date Comments 9 40 Discharge Information Feeding Method Contraceptive Method Maternal HG B and HCT Levels Ob Episode Information Episode Created Date Number of Fetuses Patient Bloodtype Patient rh Status Prepregnancy Weight lbs Domestic Partner Domestic Partner Phone Father Name Professor Of Biological Sciences Status 12/21/19 20 1 CLOSED Fetus Data First Name Last Name Admitted to NICU Weight (g) Sex Living Outcome Pediatric Complications Fetus ID Race Codes Race Delivery Type 3231.84 3 F Full Term 1919 Primary Chaparro Calculation Initial Chaparro Date Initial Exam Date Initial Exam Provider Initial Ultrasound Date Last Menstrual Period Date Ultra Sound Weeks Gestation 0 Eighteen To Twenty Week Chaparro Update Ultra Sound Date Fundal Height At Umbil Quickening Date Ultra Sound Latest Weeks Gestation Final Chaparro Confirmed By Final Chaparro Confirmed Date Final Chaparro Date Ultra Sound Latest Days Gestation 0 0 Menstrual History Last Menstrual Date Menses Monthly On Bcp Conception Prior Menses Frequency Hcg Plus Date Menarche Onset Age Delivery Information Delivery Date Delivery Type Labor Anesthesia Weeks Gestation Incision Type Labor Labor Length Hrs Delivered By Post Complications Tubal Sterilization Discharge Date Comments 2 40 Discharge Information Feeding Method Contraceptive Method Maternal HG B and HCT Levels Ob Episode Information Episode Created Date Number of Fetuses Patient Bloodtype Patient rh Status Prepregnancy Weight lbs Domestic Partner Domestic Partner Phone Father Name Professor Of Biological Sciences Status 12/21/19 20 1 CLOSED Fetus Data First Name Last Name Admitted to NICU Weight (g) Sex Living Outcome Pediatric Complications Fetus ID Race Codes Race Delivery Type , Spontane ous 1922 Chaparro Calculation Initial Chaparro Date Initial Exam Date Initial Exam Provider Initial Ultrasound Date Last Menstrual Period Date Ultra Sound Weeks Gestation 0 Eighteen To Twenty Week Chaparro Update Ultra Sound Date Fundal Height At Umbil Quickening Date Ultra Sound Latest Weeks Gestation Final Chaparro Confirmed By Final Chaparro Confirmed Date Final Chaparro Date Ultra Sound Latest Days Gestation 0 0 Menstrual History Last Menstrual Date Menses Monthly On Bcp Conception Prior Menses Frequency Hcg Plus Date Menarche Onset Age Delivery Information Delivery Date Delivery Type Labor Anesthesia Weeks Gestation Incision Type Labor Labor Length Hrs Delivered By Post Complications Tubal Sterilization Discharge Date Comments 1 HAD D&C Discharge Information Feeding Method Contraceptive Method Maternal HG B and HCT Levels Ob Episode Information Episode Created Date Number of Fetuses Patient Bloodtype Patient rh Status Prepregnancy Weight lbs Domestic Partner Domestic Partner Phone Father Name Professor Of Biological Sciences Status 09/07/19 22 1 CLOSED Fetus Data First Name Last Name Admitted to NICU Weight (g) Sex Living Outcome Pediatric Complications Fetus ID Race Codes Race Delivery Type , Spontane ous [id number] Chaparro Calculation Initial Chaparro Date Initial Exam Date Initial Exam Provider Initial Ultrasound Date Last Menstrual Period Date Ultra Sound Weeks Gestation 0 Eighteen To Twenty Week Chaparro Update Ultra Sound Date Fundal Height At Umbil Quickening Date Ultra Sound Latest Weeks Gestation Final Chaparro Confirmed By Final Chaparro Confirmed Date Final Chaparro Date Ultra Sound Latest Days Gestation 0 0 Menstrual History Last Menstrual Date Menses Monthly On Bcp Conception Prior Menses Frequency Hcg Plus Date Menarche Onset Age Delivery Information Delivery Date Delivery Type Labor Anesthesia Weeks Gestation Incision Type Labor Labor Length Hrs Delivered By Post Complications Tubal Sterilization Discharge Date Comments 9 Discharge Information Feeding Method Contraceptive Method Maternal HG B and HCT Levels
--- OUTSIDE RECORDS SUMMARY | 2024-09-01 08:22 | XMS_ITS | CONTINUITY OF CARE DOCUMENT ---
Author Name trinity petersen Address Unknown Organization [facility] Address [address] [facility] [address] [place] [address] Phone [phone] Care Team Providers Care Sleeve Ironer Name Role Phone Og Stuart MD Unavailable [phone] Og Stuart MD Unavailable [phone] INSURANCE PROVIDERS Payer name Policy type / Coverage type Anna red green party ID [facility] Other [id number]
--- OUTSIDE RECORDS SUMMARY | 2024-09-01 08:22 | XMS_ITS | Clinical Summary ---
Author Organization [facility] [employer] Address [address] [place] [address] Care Team Providers Care Tug Boat Engineer Name Role Phone Diomedes Seals MD Primary Care Provider [phone] Source Comments [facility],non-owned Affiliates and Associated Physician Practices is amultiple site organization consisting of ambulatory clinics and hospital sitesin [place] and [place]. This disclosure is being madepursuant to the Care Everywhere program and may not contain all information available regarding this patient. Last updated 18.[facility] [employer] Allergies Active Allergy Reactions Criticality Noted Date Comments Contrast-Iodinated Agents For Ct/Other Other Low 06/17/2012 Sneezing., Sneezing., Sneezing. No Known Food Allergy Other Low 06/17/2012 No known food allergy., No known food allergy., No known food allergy. Seasonal Other Low 06/17/2012 Sinus problems., Sinus problems., Sinus problems. 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 (AF LURIA, FLUZONE TRIVALENT; 6MO+) (IIV3) 06/12/2012 Family History Medical History Relation Name Comments Asthma Child Asthma Father CVA Maternal Aunt Other Maternal Aunt renal stones Diabetes Maternal Grandfather Cancer Maternal Grandmother breast Hypertension Maternal Grandmother Kidney Disease Maternal Grandmother renal stones Other Maternal Grandmother renal s tones Thyroid Disease Maternal Grandmother Elevated Lipids Sister COPD - Chronic Obstructive Pulmonary Disease Neg Hx Heart Disease Neg Hx High Cholesterol Neg Hx Relation Name Status Comments Child Father Maternal Aunt Maternal Grandfather Maternal Grandmother Sister Social History Tobacco Use Types Packs/Day Years Used Date Smoking Tobacco: Former Cigarettes Q uit: 09/17/2006 Smokeless Tobacco: Never Alcohol Use Standard Drinks/Week Comments No 0 (1 standard drink = 0.6 oz pur e alcohol) Sex and Gender Information Value Date Recorded Sex Assigned at Not on file Gender Identity Not on file Sexual Orientation Not on file Plan of Treatment Health Maintenance Due Date Last Done Comments PAP SMEAR 1979 HIV SCREENING 10/01/1994 HEPATITIS C SCREENING 09/27/1997 DTAP/TDAP/TD VACCINES (1 - Tdap) 10/01/1998 HEPATITIS B VACCINE (1 of 3 - 19+ 3-dose series) 10/01/1998 LIPID TESTING 09/17/2016 09/18/2011 COVID-19 VACCINE ( - 2023-2 5 season) 2024 INFLUENZA VACCINE (#1) 2024 06/12/2012 DEPRESSION SCREENING 07/21/2024 MAMMOGRAM 12/09/2025 12/10/2023 ZOSTER VACCINE (1 of 2) 10/01/2029 HIB VACCINE Aged Out No longer eligi ble based on patient's age to complete this topic HPV VACCINE Aged Out No longer eligi ble based on patient's age to complete this topic MENINGOCOCCAL (Group B) VACCINE Aged Out No longer eligible based on patient's age to complete this topic MENINGOCOCCAL VACCINE Aged Out No viridiana ilene eligible based on patient's age to complete this topic PNEUMOCOCCAL VACCINE Aged Out No long er eligible based on patient's age to complete this topic Procedures Procedure Name Priority Date/Time Associated Diagnosis Comments LIPID PROFILE Routine 09/18/2011 8:02 AM HAND UMBRELLA TIPPER from Last 3 Months or Most Recently Relevant to Health Maintenance Results * (ABNORMAL) LIPID PROFILE (09/18/2011 8:02 AM HAND UMBRELLA TIPPER) Cholesterol Total 176 125 - 200 mg/dL [facility]) Comment: Test Performed at: [email or web address] [address] [address] BINA LEVINE DO HDL 32(L) > OR = 46 mg/dL [facility]) Triglycerides 132 <150 mg/dL [facility]) LDL Calculated 118 <130 mg/dL (calc) [facility] Comment: Desirable range <100 mg/dL for patients with CHD or diabetes and <70 mg/dL for diabetic patients with known heart disease. Chol/HDL Ratio 5.5(H) < OR = 5.0 (calc) [facility]) Venous blood specimen (specimen) 09/18/2011 8:02 AM HAND UMBRELLA TIPPER 09/18/2011 8:03 AM HAND UMBRELLA TIPPER Joe Gonzalez MD LAB - CHEMISTRY EVY PRIETO [facility]) from Last 3 Months or Most Recently Relevant to Health Maintenance Insurance Payer Benefit Plan / Group Subscriber ID Effective Dates Phone Address Type [facility] UMR NON-PPO [id number] Effective for all dates [address] [address] [place] [address] PPO SELF PAY NO INSURANCE SELF PAY NO INSURANCE Effective for all dates [place] Self Pay [facility] UMR NON-PPO Effective for all dates [address] [address] [place] [address] PPO SELF PAY NO INSURANCE SELF PAY NO INSURANCE Effective for all dates . [place], [place] Self Pay [facility] UMR NON-PPO Effective for all dates [address] [address] [place] [address] PPO SELF PAY NO INSURANCE SELF PAY NO INSURANCE Effective for all dates . [place] Self Pay [facility] UMR NON-PPO [id number] Effective for all dates [address] [address] [place] [address] PPO [place]ICA[place] Effective for all dates [address] [address] [place] [address] Medicaid [facility] UMR NON-PPO [id number] Effective for all dates [address] [address] [place] [address] PPO MEDICAID - OUT OF STATE MEDICAID - [place] PUBLIC AID [id number] 04/30/2022-Pr gilbert [address] [address] [place] [address] Medicaid Care Teams Tug Boat Engineer Relationship Specialty Start Date End Date Diomedes Seals MD [address] [place] [address] PCP - General 06/20/22
--- OUTSIDE RECORDS SUMMARY | 2024-09-01 08:22 | XMS_ITS | Referral Summary ---
Author Organization [facility] [employer] Address [address] [place] [address] Care Team Providers Care Financial Aid Director Name Role Phone Diomedes Seals MD Primary Care Provider [phone] Source Comments [facility],non-owned Affiliates and Associated Physician Practices is amultiple site organization consisting of ambulatory clinics and hospital sitesin [place], [place], [place] and [place]. This disclosure is being madepursuant to the Care Everywhere program and may not contain all information available regarding this patient. Last updated 18.[facility] [employer] Allergies Active Allergy Reactions Criticality Noted Date [...] (AF LURIA, FLUZONE TRIVALENT; 6MO+) (IIV3) 06/12/2012 Social History Tobacco Use Types Packs/Day Years Used Date Smoking Tobacco: Former Cigarettes Q uit: 09/17/2006 Smokeless Tobacco: Never Alcohol Use Standard Drinks/Week Comments No 0 (1 standard drink = 0.6 oz pur e alcohol) Sex and Gender Information Value Date Recorded Sex Assigned at Not on file Gender Identity Not on file Sexual Orientation Not on file Plan of Treatment Not on file Procedures Procedure Name Priority Date/Time Associated Diagnosis Comments LIPID PROFILE Routine 09/18/2011 8:02 AM HOST/HOSTESS RESTAURANT from Last 3 Months or Most Recently Relevant to Health Maintenance Results * (ABNORMAL) LIPID PROFILE (09/18/2011 8:02 AM HOST/HOSTESS RESTAURANT) Cholesterol Total 176 125 - 200 mg/dL [facility]) Comment: Test Performed at: [employer] [address] [address] BINA LEVINE DO HDL 32(L) > OR = 46 mg/dL [facility]) Triglycerides 132 <150 mg/dL [facility]) LDL Calculated 118 <130 mg/dL (calc) [facility]) Comment: Desirable range <100 mg/dL for patients with CHD or diabetes and <70 mg/dL for diabetic patients with known heart disease. Chol/HDL Ratio 5.5(H) < OR = 5.0 (calc) [facility]) Venous blood specimen (specimen) 09/18/2011 8:02 AM HOST/HOSTESS RESTAURANT 09/18/2011 8:03 AM HOST/HOSTESS RESTAURANT Joe Gonzalez MD LAB - CHEMISTRY EVY PRIETO [facility] Organization Address City/State/ZIP Co de Phone Number [facility]) from Last 3 Months or Most Recently Relevant to Health Maintenance Care Teams Financial Aid Director Relationship Specialty Start Date End Date Diomedes Seals MD [address] [place] [id number] PCP - General 06/20/22
--- OUTSIDE RECORDS SUMMARY | 2024-09-01 08:22 | XMS_ITS | Patient Health Summary ---
Author Organization [facility] Address [address] [place] [address] Care Team Providers Care Supervisor Shed Workers Name Role Phone Diomedes Seals MD Primary Care Provider [phone] Note from [facility],non-owned Affiliates and Associated Physician Practices is amultiple site organization consisting of ambulatory clinics and hospital sitesin [place], [place], [place] and [place]. This disclosure is being madepursuant to the Care Everywhere program and may not contain all information available regarding this patient. Last updated 18.[facility] Allergies * Contrast-Iodinated Agents For Ct/Other(Other) -Low Criticality * No Known Food Allergy(Other) -Low Criticality * Seasonal(Other) -Low Criticality Active Problems Problem Noted Date Diagnosed Date Sleep apnea 06/17/2012 Nontoxic single thyroid nodule 06/17/2012 Hirsutism 06/17/2012 Immunizations * INFLUENZA VACCINE, TRIV. (AFLURIA, FLUZONE TRIVALENT; 6MO+) (IIV3)(Given 06/12/2012) Social History Tobacco Use Types Packs/Day Years Used Date Smoking Tobacco: Former Cigarettes Q uit: 09/17/2006 Smokeless Tobacco: Never Alcohol Use Standard Drinks/Week Comments No 0 (1 standard drink = 0.6 oz pur e alcohol) Sex and Gender Information Value Date Recorded Sex Assigned at Not on file Gender Identity Not on file Sexual Orientation Not on file Procedures * TSH(Performed 01/04/2012) * VITAMIN B12 FOLATE PANEL(Performed 10/01/2011) * FERRITIN(Performed 10/01/2011) * CBC W AUTO DIFFERENTIAL(Performed 10/01/2011) * IRON + TIBC PANEL(Performed 10/01/2011) * PROLACTIN(Performed 09/18/2011) * HEMOGLOBIN A1C(Performed 09/18/2011) * LIPID PROFILE(Performed 09/18/2011) * COMPREHENSIVE METABOLIC PANEL(Performed 09/18/2011) Results * TSH (01/04/2012 12:26 PM CDT) [facility] TSH 1.63 mIU/L [facility] Comment: Reference Range > or = 20 Years 0.40-4.50 Ranges First trimester 0.26-2.66 Second trimester 0.55-2.73 Third trimester 0.43-2.91 Test Performed at: [employer] [facility] [address] [place] [address] BINA LEVINE DO,MPH Venous blood specimen (specimen) 01/04/2012 12:26 PM CDT 01/04/2012 12:27 PM CDT Joe Gonzalez MD LAB - CHEMISTRY EVY PRIETO [facility] * CBC W AUTO DIFFERENTIAL (10/01/2011 12:00 PM CDT) [facility] WBC 6.3 3.8 - 10.8 Thousand/u L [facility] RBC 4.13 3.80 - 5.10 Million/uL [facility] Hemoglobin 12.9 11.7 - 15.5 g/dL [facility] Hematocrit 38.4 35.0 - 45.0 % [facility] MCV 93.0 80.0 - 100.0 fL [facility] MCH 31.2 27.0 - 33.0 pg [facility] MCHC 33.6 32.0 - 36.0 g/dL [facility] RDW 13.3 11.0 - 15.0 % [facility] Platelet 280 140 - 400 Thousand/u L [facility] Neutrophils Absolute 4719 1500 - 7800 cells/uL [facility] Lymphocyte Absolute 1229 850 - 3900 cells/uL [facility] Monocytes Absolute 265 200 - 950 cells/uL [facility] Eosinophils Absolute 69 15 - 500 cells/uL [facility] Basophils Absolute 19 0 - 200 cells/uL [facility]) Neutrophils % 74.9 % [facility] Lymphocytes % 19.5 % [facility] Monocytes % 4.2 % [facility] Eosinophils % 1.1 % [facility] Basophils % 0.3 % [facility] Comment: Test Performed at: [employer] [address] [place] [address] BINA LEVINE DO,MPH 10/01/2011 12:0 0 PM CDT 10/01/2011 12:02 PM CDT Jose C Guillaume MD LAB - HEMATOLOGY OR DERABLES Performing Organization Address City/[facility]/ZIP Co de Phone Number [facility] * IRON + TIBC PANEL (10/01/2011 12:00 PM CDT) Iron 53 40 - 175 mcg/dL [facility]) TIBC 334 250 - 450 mcg/dL [facility] Iron Saturation 16 15 - 50 % (calc) [facility] Comment: Test Performed at: [employer] [facility] [place] [address] BINA LEVINE DO,MPH 10/01/2011 12:0 0 PM CDT 10/01/2011 12:02 PM CDT Jose C Guillaume MD LAB - CHEMISTRY ORD ERABLES Performing Organization Address City/[facility]/ZIP Co de Phone Number [facility] * VITAMIN B12 FOLATE PANEL (10/01/2011 12:00 PM CDT) Vitamin B12 458 200 - 1100 pg/mL [facility] Folate 13.0 ng/mL [facility] Comment: Reference Range Low: <3.4 Borderline: 3.4-5.4 Normal: >5.4 Test Performed at: [employer] [id number] [facility] [place] [address] BINA LEVINE DO,MPH 10/01/2011 12:0 0 PM CDT 10/01/2011 12:02 PM CDT Jose C Guillaume MD LAB - CHEMISTRY ORD TRISTEN Performing Organization Address [facility] de Phone Number [facility] * FERRITIN (10/01/2011 12:00 PM CDT) Ferritin 106 10 - 154 ng/mL [facility] Comment: Test Performed at: [employer] [address] [address] [place] [address] BINA LEVINE DO,MPH 10/01/2011 12:0 0 PM CDT 10/01/2011 12:02 PM CDT Jose C Guillaume MD LAB - CHEMISTRY ORD TRISTEN Performing Organization Address [facility] de Phone Number [facility] * PROLACTIN (09/18/2011 8:02 AM ENVELOPE ADDRESSER) Pathologist [facility] Prolactin 8.0 ng/mL [facility] Comment: Reference Range Females Non- 3.0-30.0 10.0-209.0 Postmenopausal 2.0-20.0 REPORT COMMENT: FASTING Test Performed at: [employer] [address] [address] BINA LEVINE DO,MPH Venous blood specimen (specimen) 09/18/2011 8:02 AM ENVELOPE ADDRESSER 09/18/2011 8:03 AM ENVELOPE ADDRESSER Joe Gonzalez MD LAB - CHEMISTRY EVY PRIETO Performing Organization Address [facility] de Phone Number [facility] * HEMOGLOBIN A1C (09/18/2011 8:02 AM ENVELOPE ADDRESSER) Pathologist [facility] Hemoglobin A1c 5.3 <5.7 % of total Hgb [facility] Comment: Decreased risk of diabetes <5.7 Decreased risk of diabetes 5.7-6.0 Increased risk of diabetes 6.1-6.4 Higher risk of diabetes > or = 6.5 Consistent with diabetes Standards of Medical Care in Diabetes-2010. Diabetes Care, 33(Supp 1): S1-S61,2010. REPORT COMMENT: FASTING Test Performed at: [employer] [address] [address] [place] [address] BINA LEVINE DO,MPH Blood specimen (specimen) 09/18/2011 8:02 AM ENVELOPE ADDRESSER 09/18/2011 8:03 AM ENVELOPE ADDRESSER Joe Gonzalez MD LAB - CHEMISTRY EVY PRIETO [facility] * COMPREHENSIVE METABOLIC PANEL (09/18/2011 8:02 AM ENVELOPE ADDRESSER) Pathologist [facility] Glucose 89 65 - 99 mg/dL [facility] Comment: Fasting reference interval BUN 14 7 - 25 mg/dL [facility] Creatinine 0.73 0.50 - 1.10 mg/dL [facility] eGFR non- 110 > OR = 60 mL/min/1. 73m2 [facility] eGFR 127 > OR = 60 mL/min/1. 73m2 [facility] BUN/Creatinine Ratio NOT APPLICABLE 6 - 22 (calc) [facility] Sodium 139 135 - 146 mmol/L [facility] Potassium 4.0 3.5 - 5.3 mmol/L [facility] Chloride 103 98 - 110 mmol/L [facility] CO2 25 21 - 33 mmol/L [facility] Calcium 9.0 8.6 - 10.2 mg/dL [facility] Protein Total 8.1 6.2 - 8.3 g/dL [facility] Albumin 4.5 3.6 - 5.1 g/dL [facility] Globulin 3.6 2.2 - 3.9 g/dL (calc) [facility] Albumin/Globuli n Ratio 1.3 1.0 - 2.1 (calc) [facility] Bilirubin Total 0.9 0.2 - 1.2 mg/dL [facility] Alkaline Phosphatase 95 33 - 115 U/L [facility] AST 25 10 - 30 U/L [facility] ALT 27 6 - 40 U/L [facility] Comment: REPORT COMMENT: FASTING Test Performed at: [facility] [address] [place] [address] BINA LEVINE DO Serum 09/18/2011 8:02 AM ENVELOPE ADDRESSER 09/18/2011 8:03 AM ENVELOPE ADDRESSER Joe Gonzalez MD LAB - CHEMISTRY EVY PRIETO [facility] * (ABNORMAL) LIPID PROFILE (09/18/2011 8:02 AM ENVELOPE ADDRESSER) Cholesterol Total 176 125 - 200 mg/dL [facility] Comment: Test Performed at: [facility] [address] [place] [address] BINA LEVINE DO HDL 32(L) > OR = 46 mg/dL [facility] Triglycerides 132 <150 mg/dL [facility] LDL Calculated 118 <130 mg/dL (calc) [facility] Comment: Desirable range <100 mg/dL for patients with CHD or diabetes and <70 mg/dL for diabetic patients with known heart disease. Chol/HDL Ratio 5.5(H) < OR = 5.0 (calc) [facility] Venous blood specimen (specimen) 09/18/2011 8:02 AM ENVELOPE ADDRESSER 09/18/2011 8:03 AM ENVELOPE ADDRESSER Joe Gonzalez MD LAB - CHEMISTRY EVY PRIETO [facility] Care Teams Supervisor Shed Workers Relationship Specialty Start Date End Date Diomedes Seals MD [address] [place] [id number] PCP - General 06/20/22
--- OUTSIDE RECORDS SUMMARY | 2024-09-01 08:22 | XMS_ITS | Referral Summary ---
Author Organization [facility] Address [address] [place] [address] Care Team Providers Care Fleet Manager/Dispatch Name Role Phone Diomedes Seals MD Primary Care Provider [phone] Encounters Date Type Department Care Team Description 06/30/2024 Telephone [facility] Obstetrics and Gynecology [address] [place] [phone] Zoe Fung Scheduling Appointments 06/10/2024 2:45 PM TRAFFIC ANALYST Office Visit [facility] [address] [facility] [address] [place] [address] Infected prosthetic mesh of abdominal wall, subsequent encounter (Primary Dx) from Last 3 Months Allergies Active Allergy Reactions Criticality Noted Date [...] 6 (six) hours as needed for pain 4 Active Additional Information Patient not taking.Reported on 02/04/2024 lamoTRIgine (LaMICtal) 150 mg tablet Take 1 tablet (150 mg total) by mouth nightly 4 Active cyclobenzaprine (FLEXERIL) 5 mg tabletIndication s:Muscle [...] dispo -12/[address] scan with DC contrast 12/16 Starting clear liquids but continuing TPN. Will attempt to wean off TPN prior to discharge. 12/17 IR drain check in AM and advancing diet, discontinuing TPN. 12/18 Discharging home with IR drain, abdominal dressings and HH. Ovarian cyst 12/12/2023 Assessment & Plan (12/25/2023 9:18 AM CDT): -[facility] ([place]) OR 11/25, initially planned for elective surgery; c/b intraabdominal hemorrhage, OSH General Surgery c/s intra-op > Op notes obtained and uploaded in Media -Post op course c/b abscess c/f ECF, identified at OSH on 12/04 -Transfer to [facility] for higher level of care with prior EGS admission 12/09-12/18 Pathology OSH 11/25 -Benign hypervascular ovarian cyst with adhesions Assessment & Plan (12/12/2023 12:17 PM CDT): -OSH OR 11/25, initially planned for elective surgery; c/b intraabdominal hemorrhage, OSH General Surgery c/s intra-op > Op notes obtained and uploaded in Media -Post op course c/b abscess c/f ECF -Transfer to [facility] for higher level of care - SEE INTRA ABDOMINAL ABSCESS Pathology OSH 11/25 -Benign hypervascular ovarian cyst with adhesions At risk for malnutrition 12/12/2023 Assessment & Plan (12/26/2023 12:35 PM CDT): -Previously on TPN started at OSH; 12/04-12/17 -Pending CT cysto; can consider restarting TPN for nutritional support -Weekly nutrition labs NUTRITION LABS 12/10 Albumin 3.0 Prealbumin 10 12/17 Albumin 3.8 Prealbumin 28 / Albumin 4.0 Prealbumin 31.0 Assessment & Plan [...] updated 12/12/23) Primary Care Provider: Rossana Ireland, HIGH SPEED OPERATOR Placement or Home Health Company: N/A Current Diet: NPO, TPN [...] 1:41 PM CDT): Relevant surgical history: (all OSH-[facility]) 06/05/22: [...] IV cefe/flagyl, CT AP with IV and DC contrast to rule out missed colon injury, LEDs and lower extremity arterial doppler 12/11 LE US studies unrevealing. CT A/P with DC contrast pending. No nausea, continue IV antibiotics. [...] check. She would like to follow with [facility] IR and General surgery. IR drain yellow [...] EGS and IR follow up on 12/31. [facility] Imagin/23 LE Arterial Dopplers - bilateral lower [...] taking lamotrigine 150 mg nightly not BID Immunizations Name Administration Dates Next Due Influenza, Trivalent, IM (MDV) 06/12/2012 Social History Tobacco Use Types Packs/Day [...] materials from doctor or pharmacy Never 12/21/2023 [facility] Utilities Answer Date Recorded In the past 12 months has e [employer], gas, oil, or water [employer] threatened to shut off services in your [...] How often do you attend chur or uatsdin services? Never 12/26/2023 Do you belong to any clubs o r organizations such as amish groups, unions, fraternal or athletic groups, or [...] Date Recorded PHQ-2 Total Score 1 12/26/2023 [facility] [place] of Occupat ional Health - Occupational Stress Questionnaire Answer Date Recorded [...] any time in the past 12 m [facility], were you homeless or living in a alf (including now)? No 12/26/2023 Personal Safety Answer Date Recorded Have you ever been in or are you currently in a harmful physical or emotional relationship or is someone making you feel afraid or unsafe? Denies 02/04/2024 Comments No Sex and Gender Information Value Date Recorded Sex Assigned at Not on file Legal Sex Female 12:43 AM TRAFFIC ANALYST Gender Identity Female 12/22/2023 9:56 AM CDT Sexual Orientation Straight 12/22/2023 9: 56 AM CDT Last Filed Vital Signs Vital Sign Reading Time Taken Comments Blood Pressure 141/90 06/10/2024 2:00 PM TRAFFIC ANALYST Pulse 105 06/10/2024 2:00 PM TRAFFIC ANALYST Temperature 36.7 C (98 F) 06/10/2024 2:00 PM TRAFFIC ANALYST Respiratory Rate 18 02/04/2024 8:29 AM CDT Oxygen Saturation 97% 06/10/2024 2:00 PM TRAFFIC ANALYST Inhaled Oxygen Concentration - - Weight 107.1 kg (236 lb 1.6 oz) 06/10/2024 2:00 PM TRAFFIC ANALYST Height 172.7 cm (5' 8 ) 03/04/2024 10:0 8 AM CDT Body Mass Index 35.9 03/04/2024 10:08 AM CDT Plan of Treatment Not on file Procedures Procedure Name Priority Date/Time Associated Diagnosis Comments DISCHARGE DRESSING Routine 06/10/2024 3: 11 PM TRAFFIC ANALYST from Last 3 Months Results * Post-Discharge Dressing Care (06/10/2024 3:11 PM TRAFFIC ANALYST) Karin Perez RN - 06/10/2024 3:11 PM TRAFFIC ANALYST Wound care dressings applied per written orders as follows: 1/4 inch gaze to lower abdominal sinus tract and cover with dry dressing. Maximo Luna MD NURSING WOUND CARE Final Re sult from Last [address] [facility] CHOICE [employer] [employer] [facility] CHOICE PLUS [facility] Advance Directives For more information, please contact: [phone] * Full Code (Latest Code Status on [...] 9:24 PM 12/19/2023 10:20 PM Care Teams Fleet Manager/Dispatch Relationship Specialty Start Date End Date Diomedes Seals MD [address] [place] [address] PCP - General Family Medicine 12/28/23
--- OUTSIDE RECORDS SUMMARY | 2024-09-01 08:23 | XMS_ITS | Continuity of Care Document ---
Author Organization [facility] Address [address] [facility] [place] [address] Phone Care Team Providers Care Interlocking Machine Operator Name Role Phone Hema Arreola MD Unavailable [...] Diagnoses Date Provider Providers Copied on Encounter [facility], [address] [place], [place], [id number], [place] tel:[phone] [facility] No Information 0 Maxwell Garrido. [address], [place], [place], [address] , [place]. tel:[phone] OFFICE/OUTPA TIENT VISIT, EST [facility], [address], [place], [place], [address], [place] tel:[phone] [facility] HTN (chief complaint) hyponatrem ia (chief complaint) anxiety1 (chief complaint) sinus (chief complaint) sleep apnea1 (chief complaint) Sleep apneaEssential (primary) hypertensionHyponat remiaAbnormality of plasma proteinGeneralized Anxiety Disorder 0 Maxwell Garrido. [address], [place], [place], [address] , [place]. tel:[phone] [facility], [address], [place], [place], [address], [place] tel:[phone] [facility] protein1 (chief complaint) hyponatrem ia1 (chief complaint) HTN (chief complaint) anxiety1 (chief complaint) sinus1 (chief complaint) Sleep apneaEssential (primary) hypertensionHyponat remiaAbnormality of plasma protein 0 0 Maxwell Garrido. [address], [place], [place], [address] , [place]. tel:[phone] Referring Provider: Hema Arreola, [address], [place], [place], [address]. tel:[phone] PREV VISIT, EST, AGE 18-39 [facility], [address], [place], [place], [address], [place] tel:[phone] [facility] physical (chief complaint) Encntr for general adult medical exam w/o abnormal findings 0 Maxwell Garrido. [address], [place], [place], [address] , [place]. tel:[phone] Referring Provider: Hema Arreola [address], [place], [place], [address]. tel:[phone] OFFICE/OUTPA TIENT VISIT, EST [facility], [address], [place], [place], [address], [place] tel:[phone] [facility] HTN (chief complaint) sleep apnea1 (chief complaint) seizure1 (chief complaint) Body mass index (BMI) 38.0-38.9, adultSleep apneaEssential (primary) hypertensionEpileps yVentral hernia [address], [place], [place], [address] , . tel:[phone] Referring Provider: Ge[address], [place], [place], [address]. tel:[phone] PREV VISIT, NEW, AGE 18-39 [facility], [address], [place], [place], [address], [place] tel:[phone] [facility] Physical (chief complaint) Encntr for general adult medical exam w/o abnormal findings 9 Maxwell Garrido. [address], [address], [place], [place], [address] , [place]. tel:[phone] Referring Provider: Geovanni [address] [facility] [address], [place], [place], [address]. 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
--- OUTSIDE RECORDS SUMMARY | 2024-09-01 08:23 | XMS_ITS | Data Portability ---
Author Organization [place] - [facility] OFFICE Address [address] [place] [address] Care Team Providers Care Football Coach Name Role Phone VOLODYMYR MAS Primary Care Provider Assessment Encounter Date Assessment Date Assessment LastModified by Organization Details LastModified Time 04/23/2022 04/23/2022 Patient Examined by TALON Bledsoe, Also interviewed / examined by Supervising physician. Assessment / plan discussed and implemented Encounter scribed by TALON Bledsoe. Documentation reviewed and approved by supervising physician matilde Not available 04/23/2022 15:44:58 01/28/2023 01/28/2023 Patient Examined by TALON Bledsoe, Also Documentation reviewed and approved by supervising physician matilde Not available 01/28/2023 14:12:46 02/11/2023 02/11/2023 Patient Examined by TALON Bledsoe, Also Documentation reviewed and approved by supervising physician hmesto Not available 02/09/2023 02:09:26 Plan of Treatment Reminders Order Date Submit Date Provider Last Modified By Organization Details Last Modified Time Details Appointments None recorded. Lab None recorded. Referral None recorded. Procedures None recorded. Surgeries None recorded. Imaging None recorded. Medication Orders losartan 50 mg tablet 2022 023 ELENA Mendez [facility] [address] [facility], [place], [address], 14:17:49 Patient TargetsNo targets recorded. Patient Instructions Encounter Date Encounter Id Patient Instructions Last Modified By Organization Details Last Modified Time 04/23/2022 [id number] Exercise advised Low cholesterol diet advised Low sodium diet advised. [email or web address] Not available 04/23/2022 15:45:40 07/30/2022 [id number] Weight loss 20 pounds Exercise advised Low cholesterol diet advised Low sodium diet advised. [email or web address] Not available 07/30/2022 14:58:04 01/28/2023 [id number] Exercise advised Low cholesterol diet advised Low sodium diet advised. [email or web address] Not available 01/28/2023 14:16:47 02/11/2023 [id number] Exercise advised Low cholesterol diet advised Low sodium diet advised. [email or web address] Not available 02/11/2023 09:57:16 05/06/2023 [id number] Exercise advised Low cholesterol diet advised Low sodium diet advised. [email or web address] Not available 05/06/2023 16:39:37 Reason for Referral None Reported. Results Created Date Observation Date Name Description Value Unit Range Abnormal Flag Note LastModifiedBy Organization Detail LastModifiedTime 03/26/20 22 03/19/2022 elect rocar diogr am No observ ation record ed. [email or web address] Not Available 2021 09:49:02 07/24/19 23 07/02/2022 exerc ise stres s echoc ardio gram No observ ation record ed. [email or web address] Not Available 2022 13:18:20 02/05/20 23 01/28/2023 elect rocar diogr am No observ ation record ed. [email or web address] Not Available 2022 10:34:25 05/10/20 23 04/25/2023 US, echoc ardio gram No observ ation record ed. [email or web address] Not Available 2022 12:57:54 05/10/20 23 03/11/2023 CT, abdom en + pelvi s, w/wo contr ast No observ ation record ed. [email or web address] Not Available 2022 13:00:05 Result Notes Documentation Provider Name and Address Organization Details Recorded Time Cmp, Serum Or Plasma : 04/07/23:Na 139,K 4.4,CL 103,CO2 23,GLU 109,BUN 9,Cr 0.77,AST 19,ALT 23,TSH 0.903,FT4 1.04,,CK <1.0. Grijalva [place] - [facility] 04/08/2023 14:30:26 Ct, Abdomen + Pelvis, W/wo Contrast : CT abdomen and pelvis 03/11/23:moderate to large midline intraumbilical hernia contatining nonobstructed small bowel. Grijalva [place] - [facility] 05/18/2023 13:00:05 Problems Name Problem SNOMED Code Status Onset Date Resolution Date Notes Provider Name and Address Organization Details Recorded Time Endoscopy of upper gastrointes tinal tract Active 2021 Apnormal Grijalva [place] - [facility] 2 16:54:03 Body mass index 30+ - obesity 307579910 Active 2021 Grijal[place] - [facility] 2 16:54:12 Depressive disorder 99213978 Active 2021 Grij[place] [facility] 2 16:54:20 Chronic back pain 385430502 Active 2021 Grijal[place] [facility] 2 15:17:56 Chronic headache disorder 407827643 Active 2021 Grijal[place] [facility] 2 15:18:29 Diverticuli tis 907030220 Active 2021 Grijal[place] [facility] 3 02:03:29 Diverticulo sis of colon 472753037 Active 2021 Grijal[place] [facility] 2 16:55:20 Disorder of gallbladder 36580630 Active 2021 Grijal[place] [facility] 2 16:55:49 Gastroesoph ageal reflux disease 972367625 Active 2021 Grijal[place] [facility] 2 16:55:56 Hemorrhoids 23531623 Active 2021 Grijal[place] [facility] 2 16:56:09 Essential hypertensio n 59146461 Active 2021 Grij[place] [facility] 2 16:56:19 Cyst of ovary 07058911 Active 2021 Grijal[place] [facility] 2 16:56:31 Seizure 80925707 Active 2021 Grijal[place] [facility] 2 16:56:39 Obstructive sleep apnea syndrome 27380889 Active 2021 Grijal[place] [facility] 2 15:18:04 Dyslipidemi a 374060279 Active 2022 Grijalva [place] [facility] 3 02:03:41 Iliac vein compression syndrome 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 Procedures Surgical History Date Name Laterality Status Provider Name and Address Organization Details Recorded Time Dilation and curettage completed Grijalva [place] - [facility] 03/15/2022 16:57:51 endoscopy completed Grijalva [facility] [place] [facility] 03/15/2022 16:58:00 stripping of vein completed Grijalva [place] - [facility] 03/15/2022 16:58:18 Appendectomy completed Grijalva [place] [facility] 03/15/2022 16:58:26 Cholecystectomy completed [place]rijalva [facility] [place] [place] [facility] 03/15/2022 16:58:57 section completed Grijalva [place] [facility] 03/15/2022 16:59:10 Imaging Results Imaging Date Name Status LastModified by Organization Details LastModified Time 03/19/2022 electrocardiogram completed Informa tion not available 03/26/2022 09:49:02 07/02/2022 exercise stress echocardiogram completed Information not available 07/24/2022 13:18:20 01/28/2023 electrocardiogram completed Informa tion not available 02/05/2023 10:34:25 04/25/2023 US, echocardiogram completed Inform ation not available 05/18/2023 12:57:54 03/11/2023 CT, abdomen + pelvis, w/wo contrast completed Information not available 05/18/2023 13:00:05 Procedure Notes None recorded. Medical Equipment None Reported. Allergies Allergen ID Allergen Name Allergen Category Reaction Reaction Severity Criticality Documentation Date Start Date Code Code System Note Provider Name and Address Organization Details Recorded Time 71650 Product containin g penicilli n and antibioti c (product) medicatio n Not available Not available Not available 03/15/2022 17038 05 SNOMED Grijalva [place] - [facility] 2 17:04:54 56243 shrimp allergeni c extract food Not available Not available Not available 03/15/2022 80099 2 RxNorm Grijal[place] [facility] 2 17:05:03 52219 wheat preparati on food,medi cation Not available Not available Not available 03/15/2022 49449 52 RxNorm Grijal[place] [facility] 2 17:05:11 14884 Iodinated contrast media (substanc e) medicatio n Not available Not available Not available 03/15/2022 02569 2004 SNOMED Grijalva [place] [facility] 2 17:05:46 01431 irbesarta n medicatio n Not available Not available Not available 03/15/2022 35191 RxNorm Grijalva Mesto [facility], [place] - [facility] 2 17:05:58 Medications Name Sig Start Date Stop Date Status Note LastModified by Organization Details LastModified Time losartan 50 mg tablet TAKE 1 TABLET BY MOUTH ONCE DAILY active Not Available Not Available No t Available lamotrigin e 150 mg tablet TAKE 1 TABLET BY MOUTH TWICE DAILY active Not Available Not Available No t Available erythromyc in 500 mg tablet TAKE 2 TABLETS BY MOUTH AT 1 PM, 2 PM AND 11 PM 07/30 completed Not Available Not Available Not Available azithromyc in 250 mg tablet TAKE 2 TABLETS BY MOUTH ON DAY 1, AND THEN TAKE 1 TABLET BY MOUTH ONCE A DAY ON DAY 2 THROUGH DAY 5 03/19 completed Not Available Not Available Not Available ibuprofen 800 mg tablet TAKE 1 TABLET BY MOUTH THREE TIMES DAILY NEEDED FOR PAIN active Not Available Not Available No t Available benzonatat e 200 mg capsule TAKE 1 CAPSULE BY MOUTH THREE TIMES DAILY NEEDED FOR COUGH 03/19 completed Not Available Not Available Not Available hydrocodon e 5 mg-acetami nophen 325 mg tablet TAKE 1 TABLET BY MOUTH EVERY 6 HOURS NEEDED FOR PAIN active Not Available Not Available No t Available fluconazol e 200 mg tablet TAKE 1 TABLET BY MOUTH EVERY OTHER DAY 03/19 completed Not Available Not Available Not Available metronidaz ole 0.75 % (37.5 mg/5 gram) vaginal gel INSERT 1 APPLICAT ORFUL VAGINALL Y EVERY DAY AT BEDTIME FOR 5 DAYS 03/19 completed Not Available Not Available Not Available metronidaz ole 500 mg tablet 03/19 completed Not Available Not Available Not Available amlodipine 5 mg tablet TAKE 1 TABLET BY MOUTH AT BEDTIME active Not Available Not Available No t Available ciprofloxa elan 500 mg tablet 03/19 completed Not Available Not Available Not Available peg-electr olyte solution 420 gram oral solution TAKE DIRECTED BY OFFICE active Not Available Not Available No t Available omeprazole 40 mg capsule,de layed release TAKE 1 CAPSULE BY MOUTH ONCE DAILY active Not Available Not Available No t Available tramadol 50 mg tablet TAKE 1 TABLET BY MOUTH EVERY 6 HOURS NEEDED FOR PAIN active Not Available Not Available No t Available oxycodone- acetaminop hen 5 mg-325 mg tablet TAKE 1 TABLET BY MOUTH EVERY 4 HOURS NEEDED FOR PAIN active Not Available Not Available No t Available amitriptyl ine 25 mg tablet TAKE 1 TABLET BY MOUTH EVERY DAY AT BEDTIME active Not Available Not Available No t Available amitriptyl ine 10 mg tablet TAKE 1 TABLET BY MOUTH ONCE DAILY AT BEDTIME 06/01 completed pt is now taking 25 mg Not Available Not Available Not Available benzonatat e 100 mg capsule TAKE 1 CAPSULE BY MOUTH TWICE DAILY 03/19 completed Not Available Not Available Not Available pantoprazo le 40 mg tablet,del ayed release TAKE 1 TABLET BY MOUTH TWICE DAILY active Not Available Not Available No t Available prednisone 50 mg tablet TAKE ONE TABLET BY MOUTH [address] SCAN THEN 1 TAB [address] SCAN THEN 1 TAB [address] SCAN active Not Available Not Available No t Available promethazi ne 25 mg tablet TAKE 1/2 (ONE-AMBER F) TABLET BY MOUTH EVERY 6 HOURS NEEDED active Not Available Not Available No t Available docusate sodium 100 mg capsule TAKE 1 CAPSULE BY MOUTH TWICE DAILY active Not Available Not Available No t Available montelukas t 10 mg tablet TAKE 1 TABLET BY MOUTH AT BEDTIME 03/19 completed Not Available Not Available Not Available methylpred nisolone 4 mg tablets in a dose pack TAKE BY MOUTH DIRECTED ON INSIDE OF PACKAGE 03/19 completed Not Available Not Available Not Available neomycin 500 mg tablet TAKE 2 TABLETS BY MOUTH AT 1 PM, 2 PM, AND 11 PM active Not Available Not Available No t Available albuterol sulfate HFA 90 mcg/actuat ion aerosol inhaler INHALE 2 PUFFS BY MOUTH EVERY 4 HOURS NEEDED FOR SHORTNES S OF BREATH AND FOR WHEEZING 03/19 completed Not Available Not Available Not Available losartan 100 mg tablet TAKE 1 TABLET BY MOUTH ONCE DAILY 05/05 completed pt is no longer taking 01/28/23 SA Not Available Not Available Not Available fluticason e propionate 50 mcg/actuat ion nasal spray,susp ension USE 1 SPRAY(S) IN EACH NOSTRIL TWICE DAILY 03/19 completed Not Available Not Available Not Available lamotrigin e 100 mg tablet Take 1 tablet every day by oral route. 05/05 completed pt is now taking 50 mg Not Available Not Available Not Available nitrofuran toin monohydrat e/macrocry stals 100 mg capsule TAKE 1 CAPSULE BY MOUTH EVERY 12 HOURS WITH A MEAL FOR 5 DAYS WITH MEALS active Not Available Not Available No t Available cholecalci ferol (vitamin D3) 1,250 mcg (50,000 unit) capsule TAKE 1 CAPSULE BY MOUTH ONCE A WEEK 03/19 completed Not Available Not Available Not Available Eliquis 5 mg tablet TAKE 1 TABLET BY MOUTH TWICE DAILY FOR 3 MONTHS STARTING 05/01 active Not Available Not Available No t Available Vitals Date Recorded Body height Body mass index (BMI) Body weight Oxygen saturation Oxygen saturation in Arterial blood by Pulse oximetry Heart rate Systolic blood pressure Diastolic blood pressure Provider Name and Address Organization Details Last Updated DateTime 2 172.72 cm 33.8 kg/m2 567909. 51 g 96 % 96 % 81 /min 148 mm[Hg] 102 mm[Hg] RONALD PRUITT [place] - [facility] 2 15:08:57 Date Recorded Body height Body mass index (BMI) Body weight Heart rate Respiratory rate Oxygen saturation Oxygen saturation in Arterial blood by Pulse oximetry Systolic blood pressure Diastolic blood pressure Provider Name and Address Organization Details Last Updated DateTime 3 172.72 cm 32.4 kg/m2 47218.1 7 g 92 /min 16 /min 99 % 99 % 118 mm[Hg] 84 mm[Hg] Felipe Zamora [facility] 3 14:37:17 Date Recorded Body height Body mass index (BMI) Body weight Heart rate Oxygen saturation Oxygen saturation in Arterial blood by Pulse oximetry Systolic blood pressure Diastolic blood pressure Provider Name and Address Organization Details Last Updated DateTime 3 172.72 cm 35.3 kg/m2 015516. 07 g 71 /min 91 % 91 % 120 mm[Hg] 80 mm[Hg] RONALD PRUITT [facility] 3 13:24:20 Date Recorded Body height Body mass index (BMI) Body weight Heart rate Respiratory rate Oxygen saturation Oxygen saturation in Arterial blood by Pulse oximetry Systolic blood pressure Diastolic blood pressure Provider Name and Address Organization Details Last Updated DateTime 3 172.72 cm 35.4 kg/m2 671663. 02 g 102 /min 18 /min 97 % 97 % 128 mm[Hg] 84 mm[Hg] Felipe Zamora [facility] 3 09:39:19 Date Recorded Body height Body mass index (BMI) Body weight Heart rate Oxygen saturation Oxygen saturation in Arterial blood by Pulse oximetry Systolic blood pressure Diastolic blood pressure Provider Name and Address Organization Details Last Updated DateTime 3 172.72 cm 35.7 kg/m2 219115. 21 g 97 /min 95 % 95 % 146 mm[Hg] 90 mm[Hg] Lela River [facility] 3 16:16:04 Social History Question Answer Notes LastModified by Organizat ion Details LastModified Time Tobacco Smoking Status Current Every Day Smoker Rudi hua [facility] 03/15/2022 17:01:02 What Is Your Level Of Alcohol Consumption? Occasional 1 DRINK PER WEEK Information not available 03/15/2022 What Is Your Level Of Caffeine Consumption? Occasional Information not available 03/19/2022 What Type Of Diet Are You Following? REGULAR Information not available 03/19/2022 How Much Tobacco Do You Smoke? 1 PPD Information not available 03/15/2022 Do You Use Any Illicit Or Recreational Drugs? No Information not available 03/15/2022 How Many Years Have You Smoked Tobacco? 7 Information not available 03/15/2022 Sex: Unknown Functional Status Question Answer Note LastModified by Organization D etails LastModified Time What is your exercise level? Moderate Information not available 03/19/2022 Mental Status None recorded. Family History Relationship Description Onset Age of this Age Resolved Age Notes LastModified by Organization Details LastModified Time Father Heart disease [email or web address] Not available 2021 16:59:24 Father Hypertensive disorder hmesto Not available 2021 16:59:37 Father Diabetes mellitus hmesto Not available 2021 16:59:45 Father History of aortofemoral bypass surgery 76 hmesto Not available 2021 15:17:41 Mother Diabetes mellitus hmesto Not available 2021 16:59:54 Mother Heart disease hmesto Not available 2021 17:00:03 Medical History Condition Response Peripheral Arterial Disease Y Hypertension Y Depression Y Sleep Apnea Y Gynecological HistoryNo gynecological history recorded. Obstetrics History GPAL:G 0 P 0 0 0 0 Past Encounters Encounter ID Performer Location Encounter Start Date Encounter Closed Date Diagnosis/Indication Diagnosis SNOMED-CT Code Diagnosis ICD10 Code Diagnosis Note [id number] [facility] OFFICE [facility] [place] [address] 03/19/2022 15:00:17 03/19/2022 16:01:07 Varicose veins of lower extremity 10639196 I83.891 Benign ess ential hypertension 4364007 I10 well controlled todayconti nue losartan 100 mg daily Iliac vein compression syndrome 386865907 I87.1 will do venous reflex ultrasound [id number] [facility] OFFICE [facility] [place] [address] 04/23/2022 14:30:53 04/23/2022 15:55:13 Varicose veins of lower extremity 30156550 I83.891 significan t reflex disease need venous angiogram Benign ess ential hypertension 5894282 I10 well controlled todayconti nue losartan 100 mg daily Iliac vein compression syndrome 071844874 I87.1 will do venous reflex ultrasound after stress echo Essential hypertension 22601420 I10 elevated today she need cpap Obstructiv e sleep apnea syndrome 61000824 G47.33 repeat study Dyspnea on exertion 6084 5006 R06.09 Treadmill Myoview Stress test, has high [place] Risk score. Has Known CAD, or CAD risk equivalent . To look for any ischemia. Pre-surger y evaluation 982091734 Z01.818 Treadmill Myoview Stress test, has high [place] Risk score. Has Known CAD, or CAD risk equivalent . To look for any ischemia. Dyslipidemia 368137969 E 78.5 LDL is at 119 she is not taking [id number] Phani Vega MD [facility] [address] [place] [address] 07/30/2022 14:25:03 07/30/2022 15:00:22 Varicose veins of lower extremity 59070230 I83.891 significan t reflex disease need venous angiogram Benign ess ential hypertension 7730341 I10 well controlled todayconti nue losartan 100 mg daily Iliac vein compression syndrome 544032508 I87.1 will do venous reflex ultrasound after stress echo Essential hypertension 14146711 I10 elevated today she need cpap Obstructiv e sleep apnea syndrome 27767749 G47.33 repeat study Dyspnea on exertion 6084 5006 R06.09 Treadmill Myoview Stress test, has high [place] Risk score. Has Known CAD, or CAD risk equivalent . To look for any ischemia. Dyslipidemia 039218523 E 78.5 LDL is at 119 she is not taking meds [id number] ALEX EAGLE [facility] [address] [place] [address] 01/28/2023 12:44:13 01/28/2023 14:18:38 Varicose veins of lower extremity 23542248 I83.891 resolved Benign ess ential hypertension 4953412 I10 high BP todayshe discontinu e losartan 100 mg daily as she thought her BP is well controllSh e is on amlodipin 5 mg dailyLosar flores 50 mg daily Iliac vein compression syndrome 201723226 I87.1 will do venous reflex ultrasound after stress echo Essential hypertension 53057295 I10 elevated today she need cpap Obstructiv e sleep apnea syndrome 88118428 G47.33 repeat study Dyspnea on exertion 6084 5006 R06.09 Treadmill Myoview Stress test, has high [place] Risk score. Has Known CAD, or CAD risk equivalent . To look for any ischemia. Dyslipidemia 695361171 E 78.5 LDL is at 136 she is not taking meds 09/12 [id number] Phani Vega MD [facility] [address] [place] [address] 02/11/2023 09:33:56 02/11/2023 10:16:13 Varicose veins of lower extremity 72113878 I83.891 resolved Benign ess ential hypertension 0738919 I10 well controlled todayprevi ously she discontinu e losartan 100 mg daily as she thought her BP is well controllSh e is on amlodipin 5 mg daily and Losartan 50 mg daily Iliac vein compression syndrome 879639114 I87.1 well controlled and has no problem currently Essential hypertension 37641418 I10 well controlled today Obstructiv e sleep apnea syndrome 73861513 G47.33 repeat study Dyspnea on exertion 6084 5006 R06.09 Negative stress echo. Mild exercise impairment . Dyslipidemia 512532689 E 78.5 LDL is at 136 she is not taking meds 09/12will repeat in 3 months Tachycardia 9913616 R00. 0 will consider adding metoprolol next visit if she still tachyproba diya tachy due to abdominal dis comfortabl e after her diverticul itis surgery , she is going for abdominal ultrasound tomorrow [id number] Phani Vega MD [facility] [place] [address] 05/06/2023 16:04:19 05/06/2023 16:48:03 Varicose veins of lower extremity 30103535 I83.891 resolved Benign ess ential hypertension 0874196 I10 well controlled todayprevi ously she discontinu e losartan 100 mg daily as she thought her BP is well controllSh e is on amlodipin 5 mg daily and Losartan 50 mg daily Iliac vein compression syndrome 247365266 I87.1 well controlled and has no problem currently Essential hypertension 18797122 I10 well controlled today Obstructiv e sleep apnea syndrome 25114299 G47.33 repeat study Dyspnea on exertion 6084 5006 R06.09 Negative stress echo. Mild exercise impairment . Dyslipidemia 964766804 E 78.5 LDL is at 136 she is not taking meds 09/12jean carlos repeat in 3 months Tachycardia 7848006 R00. 0 will consider adding metoprolol next visit if she still tachyproba diya tachy due to abdominal dis comfortabl e after her diverticul itis surgery , she is going for abdominal ultrasound tomorrow Pulmonary embolism 89271 003 I26.99 On Eliquis 5 mg bidJean Carlos get her CT and Echo report from Jelani dickerson need Follow up [facility] Concerns Section Related Observation LastModified by Organization Detai ls LastModified Time None Recorded Concern Status LastModified by Organization Details LastModified Time None Recorded Advance Directives Directive None Recorded Payers Encounter Date Sequence Insurance Name Policy Number Policy Jurado Covered Member ID Jurado Member ID Guarantor Name 04/23/2022 1 [facility] [id number] [facility] [employer] [facility] [id number] [facility] 04/23/2022 2 [place] [facility] [id number] [facility] 07/30/2022 1 [facility] [id number] [employer] [facility] [id number] [facility] 07/30/2022 2 [place] [facility] [id number] [facility] 01/28/2023 1 [facility] [id number] [facility]rera [facility] [employer] [facility] [id number] [facility] 01/28/2023 2 [place] [facility] [id number] [facility] 02/11/2023 1 [facility] [id number] [facility] [employer] [facility] [id number] [facility] 02/11/2023 2 [place] [facility] [id number] [facility] 05/06/2023 1 [facility] [id number] [facility] [employer] [facility] [id number] [facility] 05/06/2023 2 [place] [facility] [id number] [facility] Notes Date Note Type Note Provider Name and Address Organization Details Recorded Time 04/23/2022 text/html 04/23/22CC : Car diac follow up legs Yarelis HERNANDEZ is a 41 years-old Female with h/o Hypertension, depression ,Obstructive sleep apnea and GERD, celiac , and diverticulitis is here for follow up. She was last seen in the clinic on 03/19/22, since then she is doing well. She is still having leg pain that she is taking tylenol for . she will have sigmoidectomy for her diverticulitis. Her last LDL done is 119 done 03/2022. She has NATASHA and she is not wearing her CPAP. Her US of the lower legs showed no DVT but significant venous reflex bilateral. She is having occasional chest pain for few minutes. She has dyspnea on exertion as well. She denies ER visits and hospitalizations since she was last seen. Today reports:occasional chest pain.occasional shortness of breath at rest. Has mild dyspnea on exertion.No orthopnea. No PNDs.Denies heart palpitations.Denies dizziness. Denies syncope or near syncope.No ankle or leg edema.No major bleeding events.No reported side effects from medications. Taking medications as prescribed with no missed doses.Denies snoring, daytime somnolence and AM headache.*Pt dose not have any lipid labs previously. dose not takes any statins. Previously:She c/o pain of the right leg and thigh. Pain is present all the time but aggravated by walking.She has had tow previous vein stripping surgeries [id number].She can not bare aliza on her right leg for the last 8 months. She is been vaping for the last 3 months.Her dad has bypass surgery when he was 76. [facility] 04/23/2022 15:45:46 07/30/2022 text/html 07/30/22CC : Car diac follow up , dyspnea on exertionDevi HERNANDEZ is a 41 years-old Female with h/o Hypertension, depression ,Obstructive sleep apnea and GERD, celiac , and diverticulitis is here for 3 month follow up with SE results. She was last seen in the clinic on 04/23/22, since then she had diverticulitis surgeryShe denies ER visits and hospitalizations since she was last seen. Today reports:Denies chest pain.Denies shortness of breath at rest. Has mild dyspnea on exertion.No orthopnea. No PNDs.Denies heart palpitations.Denies dizziness. Denies syncope or near syncope.No ankle or leg edema.No major bleeding events.No reported side effects from medications. Taking medications as prescribed with no missed doses.Denies snoring, daytime somnolence and AM headache.*Pt dose not have any lipid labs previously. dose not takes any statins. *Had negative SE done in 07/02/22. Previously:She will have sigmoidectomy for her diverticulitis. She has NATASHA and she is not wearing her CPAP. Her US of the lower legs showed no DVT but significant venous reflex bilateral. She is having occasional chest pain for few minutes. She has dyspnea on exertion as well. She c/o pain of the right leg and thigh. Pain is present all the time but aggravated by walking. She has had tow previous vein stripping surgeries [id number]. She can not bare aliza on her right leg for the last 8 months. She is been vaping for the last 3 months. Phani Vega MD [address] [place], [address], [facility] 07/30/2022 14:59:08 01/28/2023 text/html 01/28/23CC : Car diac follow up dyspnea on exertionDevi HERNANDEZ is a 42 years-old Female with h/o Hypertension, celiac disease , depression ,Obstructive sleep apnea and GERD, celiac , and diverticulitis is here for 6 month follow up. She was last seen in the clinic on 07/30/22, since then she had occasional chest pain when her blood pressure elevated , she has diverticulitis surgery about 6 months ago. LDL 136 done 08/2022, she is not on any statin. She denies ER visits and hospitalizations since she was last seen. Today reports:Denies chest pain.Denies shortness of breath at rest. Has mild dyspnea on exertion.No orthopnea. No PNDs.Denies heart palpitations.Denies dizziness. Denies syncope or near syncope.No ankle or leg edema.No major bleeding events.No reported side effects from medications. Taking medications as prescribed with no missed doses.Denies snoring, daytime somnolence and AM headache.*Pt dose not have any lipid labs previously. dose not takes any statins. Previously:She had diverticulitis surgery *Had negative SE done in 07/02/22. She will have sigmoidectomy for her diverticulitis. She has NATASHA and she is not wearing her CPAP. Her US of the lower legs showed no DVT but significant venous reflex bilateral. She is having occasional chest pain for few minutes. She has dyspnea on exertion as well. She c/o pain of the right leg and thigh. Pain is present all the time but aggravated by walking. She has had tow previous vein stripping surgeries [id number]. She can not bare aliza on her right leg for the last 8 months. She is been vaping for the last 3 months. ALEX hua [place] - [facility] 01/28/2023 14:17:47 02/11/2023 text/html 02/11/23CC : Henrique nieves follow up Sissy HERNANDEZ is a 42 years-old Female with h/o Hypertension, celiac disease , depression ,Obstructive sleep apnea and GERD, celiac , and diverticulitis is here for 2 week follow up. She was last seen in the clinic on 01/28/23, since then she is doing well. She denied chest pain or dyspnea on exertion. Her blood pressure is well controlled today after restarting losartan. Her heart rate is elevated today due to her abdominal discomfort after her diverticulitis surgery. *LDL 136 done 08/2022, she is not on any statin. She denies ER visits and hospitalizations since she was last seen. Today reports:Denies chest pain.Denies shortness of breath at rest. Has mild dyspnea on exertion.No orthopnea. No PNDs.Denies heart palpitations.Denies dizziness. Denies syncope or near syncope.No ankle or leg edema.No major bleeding events.No reported side effects from medications. Taking medications as prescribed with no missed doses.Denies snoring, daytime somnolence and AM headache.*LDL 136 done 08/2022, she is not on any statin. Previously:She had occasional chest pain when her blood pressure elevated , She has diverticulitis surgery about 6 months ago. She had diverticulitis surgery *Had negative SE done in 07/02/22. She will have sigmoidectomy for her diverticulitis. She has NATASHA and she is not wearing her CPAP. Her US of the lower legs showed no DVT but significant venous reflex bilateral. She is having occasional chest pain for few minutes. She has dyspnea on exertion as well. She c/o pain of the right leg and thigh. Pain is present all the time but aggravated by walking. She has had tow previous vein stripping surgeries [id number]. She can not bare aliza on her right leg for the last 8 months. She is been vaping for the last 3 months. Phani Vega MD [address] [place], [id number], [facility] 02/11/2023 09:59:05 05/06/2023 text/html 05/06/23CC : Car lizbeth follow upDevi HERNANDEZ is a 42 years-old Female with h/o Hypertension, celiac disease , depression ,Obstructive sleep apnea and GERD, celiac , and diverticulitis is here for 3 month follow up. She was last seen in the clinic on 02/11/23, since then sheShe denies ER visits and hospitalizations since she was last seen. Today reports:pt previously had hernia surgery of 04/21/2023 [facility] - pt having chest pain but refuses ECG . after surgery at [facility] had PE. pt feels thats the reason for chest pain. Denies shortness of breath at rest. Has mild dyspnea on exertion.No orthopnea. No PNDs.Denies heart palpitations.Denies dizziness. Denies syncope or near syncope.No ankle or leg edema.No major bleeding events.No reported side effects from medications. Taking medications as prescribed with no missed doses.Denies snoring, daytime somnolence and AM headache.*Last LDL was 136 done on 08/2022.Pt dose not takes any statins. Previously:Her heart rate is elevated today due to her abdominal discomfort after her diverticulitis surgery. She had occasional chest pain when her blood pressure elevated , She has diverticulitis surgery about 6 months ago. She had diverticulitis surgery *Had negative SE done in 07/02/22. She will have sigmoidectomy for her diverticulitis. She has NATASHA and she is not wearing her CPAP. Her US of the lower legs showed no DVT but significant venous reflex bilateral. She is having occasional chest pain for few minutes. She has dyspnea on exertion as well. She c/o pain of the right leg and thigh. Pain is present all the time but aggravated by walking. She has had tow previous vein stripping surgeries [id number]. She can not bare aliza on her right leg for the last 8 months. She is been vaping for the last 3 months. Phani Vega MD [address] [place], [id number], [facility] 05/06/2023 16:41:39 OBGyn Episode No OBEpisode recorded.
--- NOTE | 2024-09-23 16:24 | WPDSLEEPSTUD ---
Sleep Study Date of Study: 09/01/24 Ordering Provider: Diomedes Seals MD Interpreting Physician: Theresa Young MD Sleep Study Type: Polysomnogram Height: 1.73 m Weight: 108.862 kg Body Mass Index: 36.5 Neck Circumference (inches): 18.5 [place]: 20 Reason for Sleep Study Hypersomnolence Sleep History Devi Chow is a 43-year-old woman with excessive daytime sleepiness. She was previously diagnosed with obstructive sleep apnea in 2004 was on CPAP however went through many different masks. Using PAP did not work out well at some point so she quit. She feels tired all the time. Medical comorbidities include hypertension, depression and acid reflux. 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 She occasionally awakens at night with heartburn, belching or coughing. ?She frequently snores, however never snores loudly enough that others complain. She does not have trouble sleeping when she has a cold. She occasionally wakes up gasping for breath during the night. She never has breathing problems at night. She never sweats excessively at night. She never notices her heart pounding or beating irregularly during the night. She constantly falls asleep during the day. She occasionally falls asleep involuntarily, never falls asleep while driving. She never experiences loss of muscle tone with strong emotion. She never feels paralyzed on waking or falling asleep. She occasionally experiences vivid dreams upon waking or falling asleep. She never feels afraid of going to sleep. She rarely has nightmares. She rarely recalls her dreams. She occasionally has thoughts racing through her mind. She occasionally feels sad or depressed. She constantly feels anxiety. She never notices parts of her body jerk. She never kicks during the night. She rarely feels crawling or aching feelings in her legs. She rarely feels leg pain at night. She never has morning jaw pain, and never grinds her teeth at night. She occasionally feels bothered by pain during the day, is never awakened by pain during the night. She rarely wakes up feeling stiff in the morning, occasionally wakes feeling sore or achy in the morning. She frequently awakens with pain in her neck, spine, or joints. She was always sleepy during the day. She occasionally has memory or concentration problems. She occasionally has job problems related to excessive sleepiness. Normal bedtime is 10:00 p.m., falling asleep within 5 minutes, no awakenings during the night, waking at 4:30 a.m., and keeping the same schedule on weekends. She estimates getting 6 hours of sleep per night. She does not feel refreshed on waking. She takes naps in the afternoon or evening however a short nap lasting 10-15 minutes is not refreshing. She is usually drowsy for 3 hours after waking. She reports a 40 lb weight gain in the last year. Habits:??Tobacco: Current smoker, 1 pack per day for 3 years, started vaping 2020 Caffeine: Yes Alcohol: Social alcohol Recreational substances: none PMF Past Medical History Medical History Intra-abdominal abscess Postoperative ileus History of diverticulitis Rectal Hemorrhage LUQ pain Degenerative joint disease of cervical and lumbar spine Panic attack Cerebral atrophy Hx pulmonary embolism Pulmonary embolism Incisional hernia Hyperlipidemia Anxiety Blood transfusion abn reaction or complication, no procedure mishap Abdominal pain BMI greater than 30 Numbness of face Left facial numbness Rash D-dimer, elevated Acute bacterial sinusitis Abnormal endoscopy of upper gastrointestinal tract Shrimp allergy Abnormal mammogram Depression Chronic back pain Arthritis Ovarian cyst Uterine fibroid Hemorrhoids Gallbladder disease Diverticulosis Diverticulitis Sleep apnea Hypertension Chronic headaches Seizures absent seizure Surgical History Surgical History H/O oophorectomy S/P laparoscopic-assisted sigmoidectomy H/O abdominal surgery History of hernia repair incisional hernia with defect measuring approximately 9 cm, lateralization of the rectus muscles on 04/21/23 PDC History of incisional hernia repair Hx of colectomy AMBER Sigmoid colectomy on 06/05/22 H/O endoscopy Previous section H/O dilation and curettage Hx of cholecystectomy History of appendectomy H/O vein stripping Family History Family History Father Heart disease Hypertension Diabetes mellitus Mother Diabetes mellitus Heart disease Sibling No problems noted. Grandparent Breast cancer Other Cancer Cerebrovascular accident Social History Social History Smoking packs per day: 1 Smoking cigarettes per day: 20.0 Years smoked: 3 Smoking pack-years: 3.00 Smoking status: Current some day smoker Tobacco type: e-cigarettes/vaping Second hand tobacco smoke exposure: Yes (SPOUSE) Additional smoking assessment comments: started vaping 2020 Alcohol intake: current Drinks per week: 1 Alcohol use details: OCAASIONALLY Substance use: never Substance use type: does not use Do You Feel Safe in your Home?: Yes Lack of Transportation: No Lack of Food: Never True Current Housing: I Have Housing Concerned About Future Housing: No Difficulty Paying Gas/Electric Bills: No Difficulty Paying for Meds: No Currently Unemployed: No Education: High School Diploma/GED Difficulty w/ Childcare or Family Care: No Living arrangements: with family Additional living arrangements comments: HUSB AND CHILDREN Occupation/Education: occupation 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 Gender identity (if verbalized by the patient): Female Sexual Orientation (if Verbalized by the Patient): Straight or Heterosexual Spiritual care concerns: No Medications Home Medications ?Medication ?Instructions ?Recorded ?Confirmed ?Type cetirizine 10 mg capsule (Zyrtec) 10 mg PO HS PRN Allergy Symptoms 07/10/22 09/23/24 History multivitamin 1 tablet PO DAILY 04/15/23 09/23/24 History acetaminophen 500 mg capsule 1,000 mg PO Q6H PRN 03/08/24 09/23/24 History pantoprazole 40 mg tablet,delayed 40 mg PO BID 1 month #60 tabs 03/08/24 09/23/24 Rx release meclizine 12.5 mg tablet 12.5 mg PO BID PRN dizziness #30 08/04/24 09/23/24 Rx tabs amlodipine 5 mg tablet (Norvasc) 5 mg PO DAILY #90 tabs 09/23/24 09/23/24 Rx duloxetine 60 mg capsule,delayed 60 mg PO DAILY #90 caps 09/23/24 09/23/24 Rx release Sleep Procedure A full night polysomnogram using the [employer] multi-channel system recorded the standard physiologic parameters including EEG, EOG, submentalis EMG, anterior tibialis EMG, EKG, body position, nasal and oral airflow using nasal pressure sensor and thermistor. Respiratory parameters of chest and abdominal movements were recorded with Respiratory Inductance Plethysmography belts. Oxygen saturation was recorded by pulse oximetry. Video monitoring was also performed. Sleep stages, periodic limb movements, and EEG arousals were scored in 30 second epochs according to the criteria of the AASM Scoring Manual. The Apnea-Hypopnea Index was calculated using CMS guidelines for definition of hypopnea while scoring respiratory events. Sleep Architecture A full night polysomnogram using the [employer] multi-channel system recorded the standard physiologic parameters including EEG, EOG, submentalis EMG, anterior tibialis EMG, EKG, body position, nasal and oral airflow using nasal pressure sensor and thermistor. Respiratory parameters of chest and abdominal movements were recorded with Respiratory Inductance Plethysmography belts. Oxygen saturation was recorded by pulse oximetry. Video monitoring was also performed. Sleep stages, periodic limb movements, and EEG arousals were scored in 30 second epochs according to the criteria of the AASM Scoring Manual. The Apnea-Hypopnea Index was calculated using CMS guidelines for definition of hypopnea with 4% O2 desaturations while scoring respiratory events. She did not meet criteria early enough in the night for a split night study so this was conducted as a basic nocturnal polysomnogram. Respiratory Analysis The total recording time was 467.2 minutes. The total sleep time was 432.0 minutes. Sleep latency was 4.4 minutes. REM latency was 149.0 minutes. Sleep efficiency was 92.5%. The patient had 22 awakenings for an awakening index of 3.1. Wake after sleep onset time was 31.0 minutes. The patient spent 27.0 minutes, 6.3% of total sleep time in Stage N1. The patient spent 198.0 minutes, 45.8% in Stage N2. The patient spent 114.5 minutes, 26.5% in Stage N3. The patient spent 92.5 minutes, 21.4% in Stage REM sleep. Arousals There were 34 total arousals for an arousal index of 4.7. There were 25 spontaneous arousals for an index of 3.5. There were 8 arousals due to respiratory events for an index of 1.1. There were no arousals due to periodic limb movements. There was 1 arousal due to isolated limb movements for an index of 0.1. Periodic Limb Movements The patient had 4 isolated limb movements with an index of 0.6. The patient had no periodic limb movements. Patient had a total of 4 limb movements with a total limb movement index of 0.6. Oximetry Data The patient had an average oxygen saturation of 93.5% in sleep with a minimum oxygen saturation of 75% and a maximum oxygen saturation of 99%. The patient had 73 oxygen desaturations that were 4% or greater resulting in an Oxygen Desaturation Index of 10.1. The patient spent 14.5 minutes, 3.1% of total sleep time with an oxygen saturation below 88%. Snoring Profile Snoring was mild. Cardiac Profile EKG showed normal sinus rhythm wth an average pulse rate of 88.5 bpm with a minimum pulse of rate of 71 bpm and a maximum pulse rate of 111 bpm. No arrhythmias noted. EEG Profile Unremarkable, no evidence of seizures. Assessment and Plan Assessment and Plan (1) Obstructive sleep apnea: Code(s): G47.33 - Obstructive sleep apnea (adult) (pediatric) Status: Acute Assessment and Plan: This basic nocturnal polysomnogram on 2024 shows mild obstructive sleep apnea, the apnea-hypopnea index is 8.3. In supine sleep the AHI is 10.3. In supine REM the AHI is 28.4. Patient desaturated to 75% and spent 14.5 minutes below 88%, 3.1% of the study. She had mild snoring. She has medical comorbidities including hypertension and as such, she is allowed to have PAP therapy for her obstructive sleep apnea. She has had difficulty tolerating PAP therapy in the past. She has had problems tolerating a number of masks including nasal, nasal pillow and fullface masks. AutoPAP would likely be difficult as she has had mask issues in the past. We do not have her prior sleep study results. We do not know what pressure she was treated with in 2004. I would recommend a CPAP titration in the sleep lab, no naps on the day of testing and a sleep aid to have available, if needed, to initiate and maintain sleep. Consider Ambien 5 mg to 10 mg or Lunesta 2 mg to 3 mg as a sedative hypnotic. BMI is 36. Weight management is advised. Clinical data suggests that weight loss of 10% can reduce the severity of respiratory events and snoring and improve AHI by as much as 25%. Data The data obtained during this sleep study is adequate for interpretation. Certification This sleep study has been reviewed by a board certified sleep medicine physician.
[2024-09-23 18:00] VITALS: BMI 36.5
== END 2024-09-02 06:06 | disposition home or self-care (01) ==
LOC: ANHCSM 08:07
PROVIDERS: PCP Family Medicine; Visit Provider Family Medicine
DX: G47.33 Obstructive sleep apnea (adult) (pediatric) (principal); G47.10 Hypersomnia, unspecified
CPT/HCPCS: 95810

== ENCOUNTER 2025-02-04 14:31 | Emergency (ER) | payer OTHER, SELFPAY ==
[2025-02-04 14:32] VITALS: BP 160/94; PULSE 100; RESP 18; TEMP 36.7; O2SAT 100
--- OUTSIDE RECORDS SUMMARY | 2025-02-04 14:34 | XMS_ITS | Clinical Summary ---
Author Organization [facility] Address [address] [place] [address] Care Team Providers Care Hangersmith Name Role Phone Diomedes Seals MD Primary Care Provider [phone] Source Comments [facility],non-owned Affiliates and Associated Physician Practices is amultiple site organization consisting of ambulatory clinics and hospital sitesin [place], [place], [place] and [place]. This disclosure is being madepursuant to the Care Everywhere program and may not contain all information available regarding this patient. Last updated 18.[facility] Allergies Active Allergy Reactions Criticality Noted Date [...] single thyroid nodule 06/17/2012 Hirsutism 06/17/2012 Immunizations Immunization Administration Dates Next Due INFLUENZA VACCINE, TRIV. 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 Gender Identity Not on file Sexual Orientation Not on file Plan of Treatment Health Maintenance Due Date Last Done Comments COLOGUARD (AGES 45-75) - COL ON CA SCREENING 1979 COLON MONITORING 1979 COLONOSCOPY - COLON CA SCREENING 1979 CT COLONOGRAPHY - COLON CA SCREENING 1979 Colorectal Cancer Screening 1979 FIT - COLON CA SCREENING 1979 FLEX SIG - COLON CA SCREENING 1979 MAMMOGRAM 1979 HIV SCREENING 10/01/1994 HEPATITIS C SCREENING 09/27/1997 DTAP/TDAP/TD VACCINES (1 - Tdap) 10/01/1998 HEPATITIS B VACCINE (1 of 3 - 19+ 3-dose series) 10/01/1998 PAP SMEAR 10/01/2000 HPV VACCINE (1 - 3-dose SCDM series) 10/01/2006 LIPID TESTING 09/17/2016 09/18/2011 COVID-19 VACCINE (1 - 2023-2 5 season) 2024 DEPRESSION SCREENING 07/21/2024 INFLUENZA VACCINE (#1) 2025 06/12/2012 ZOSTER VACCINE (1 of 2) 10/01/2029 HIB VACCINE Aged Out No longer eligi ble based on patient's age to complete this topic MENINGOCOCCAL (Group B) VACC INE SHARED DECISION-MAKING Aged Out No longer eligibl e based on patient's age to complete this topic MENINGOCOCCAL GROUPS A/C/Y/W VACCINE Aged Out No longer eligible b ased on patient's age to complete this topic PNEUMOCOCCAL VACCINE Aged Out No long er eligible based on patient's age to complete this topic Procedures Procedure Name Priority Date/Time Associated Diagnosis Comments LIPID PROFILE Routine 09/18/2011 8:02 AM PROFESSOR OF LITERATURE from Last 3 Months or Most Recently Relevant to Health Maintenance Results * (ABNORMAL) LIPID PROFILE (09/18/2011 8:02 AM PROFESSOR OF LITERATURE) Cholesterol Total 176 125 - 200 mg/dL [facility] Comment: Test Performed at: [facility] [employer] [facility] [address] [place] [address] BINA LEVINE DO HDL 32(L) > OR = 46 mg/dL [facility] Triglycerides 132 <150 mg/dL [facility] LDL Calculated 118 <130 mg/dL (calc) [facility] Comment: Desirable range <100 mg/dL for patients with CHD or diabetes and <70 mg/dL for diabetic patients with known heart disease. Chol/HDL Ratio 5.5(H) < OR = 5.0 (calc) [facility] Venous blood specimen (specimen) 09/18/2011 8:02 AM PROFESSOR OF LITERATURE 09/18/2011 8:03 AM PROFESSOR OF LITERATURE Joe Gonzalez MD LAB - CHEMISTRY ORDERABLES Fin al Result [facility] [id number] from Last 3 Months or Most Recently Relevant to Health Maintenance Insurance MEDICAID - OUT OF STATE [facility] MEDICAID - [place] [facility] * Guarantor: MALISSA HERNANDEZI Account Type Relation to Patient Date of Phone Billing Address Personal/Family [address] [place] [address] SELF PAY NO INSURANCE Member Subscriber Plan / Payer (Ef fective for All Dates) Name:Alis Hernandez Member ID:Not on file Relation to Subscriber:Not on file Name:MALISSA HERNANDEZI Subscriber ID:Not on file Address: [address] [place] [address] Payer ID:Not on file Group ID:Not on file Type:Self Pay Address: [facility] * Guarantor: ALIS HERNANDEZ Account Type Relation to Patient Date of Phone Billing Address Personal/Family [address] [place], [place] [phone] SELF PAY NO INSURANCE Member Subscriber Plan / Payer (Ef fective for All Dates) Name:Alis Hernandez T Member ID:Not on file Relation to Subscriber:Not on file Name:ALIS HERNANDEZ Subscriber ID:Not on file Address: [address] [place] [address] Payer ID:Not on file Group ID:Not on file Type:Self Pay Address: [facility] * Guarantor: ALIS HERNANDEZ Account Type Relation to Patient Date of Phone Billing Address Personal/Family [address] [place] [address] SELF PAY NO INSURANCE Member Subscriber Plan / Payer (Ef fective for All Dates) Name:Alis Hernandez T Member ID:Not on file Relation to Subscriber:Not on file Name:ALIS HERNANDEZ Subscriber ID:Not on file Address: [address] [place], [place] [phone] Payer ID:Not on file Group ID:Not on file Type:Self Pay Address: [facility] Care Teams Hangersmith Relationship Specialty Start Date End Date Diomedes Seals MD [address] [place] [address] PCP - General 06/20/22
--- OUTSIDE RECORDS SUMMARY | 2025-02-04 14:34 | XMS_ITS | Referral Summary ---
Author Organization [facility] Address [address] [place] [address] Care Team Providers Care Kennel Helper Name Role Phone Diomedes Seals MD Primary Care Provider Encounters Date Type Department Care Team Description 01/28/2025 Orders Only [facility] Obstetrics and Gynecology [facility] 7th Floor [address] [place] [address] Dorie Jordan Rai, NP Cyst of right ovary (Primary Dx) 01/25/2025 11:00 AM CDT Office Visit [facility] Department of Surgery [address] [place] [address] [address]th [place] [address] [place] [address] Attila Foster MD Infected hernioplasty mesh, subsequent encounter (Primary Dx) 01/25/2025 9:26 AM CDT - 01/25/2025 11:59 PM CDT Hospital Encounter [facility] [address] [place] [address] Infected hernioplasty mesh, initial encounter Discharge Disposition: Discharge to home or self care 12/07/2024 10:30 AM CDT Office Visit [facility] Department of Surgery [facility] 12th [place] [address] [place] [address] Attila Foster MD Infected hernioplasty mesh, initial encounter (Primary Dx); Open wound anterior abdominal wall, subsequent encounter; Encounter for smoking cessation counseling 11/05/2024 10:30 AM CDT Office Visit [facility] Department of Surgery [address] [facility] [address]th [place] [address] [place] [id number] Attila Foster MD Infected hernioplasty mesh, initial encounter (Primary Dx); Open wound anterior abdominal wall, subsequent encounter; Encounter for smoking cessation counseling from Last 3 Months Allergies Active Allergy Reactions Criticality Noted Date Comments Iodinated Contrast Media Rhinitis Medium 03/14/2020 IV contrast only, tolerated at OSH with IV benadryl pre-medication Gluten Other (See comments) High 12/19/2023 pain Gluten Protein Other (See comments) High 02/04/2024 Irbesartan Other (See comments) Low 01/12/2024 Hair loss Penicillin G Rash Medium 12/10/2023 Shrimp Rash Medium 12/26/2023 Medications amLODIPine (NORVASC) 5 mg tabletIndications :hypertension Take 1 tablet (5 mg total) by mouth daily Active pantoprazole DR (PROTONIX) 40 mg EC tabletIndications :Stress Ulcer Prophylaxis Take 1 tablet (40 mg total) by mouth daily Active cetirizine 10 mg capsuleIndication s:Seasonal Allergic Rhinitis Take 10 mg by mouth daily as needed (allergies) Active DULoxetine DR (CYMBALTA) 60 mg capsule Take 1 capsule (60 mg total) by mouth daily 4 Active cholecalciferol (VITAMIN D-3) 50,000 unit capsule Take 1 capsule (50,000 Units total) by mouth once a week 5 Active sulfamethoxazole- trimethoprim (BACTRIM DS) 800-160 mg per tabletIndications :Infected hernioplasty mesh, initial encounter Take 1 tablet by mouth 2 (two) times a day 60 tablet 1 5 02/06/20 25 Active Active Problems Problem Noted Date Diagnosed [...] dispo -12/[address] scan with [place] contrast 12/16 Starting clear liquids but continuing [...] at OSH on 12/04 -Transfer to [facility] for higher level of care with prior EGS admission 12/09-12/18 Pathology OSH 11/25 -Benign hypervascular ovarian cyst with adhesions Assessment & Plan (12/12/2023 12:17 PM CDT): -OSH OR 11/25, initially planned for elective surgery; c/b intraabdominal hemorrhage, OSH General Surgery c/s intra-op > Op notes obtained and uploaded in Media -Post op course c/b abscess c/f ECF -Transfer to [facility] for higher level of care - SEE INTRA ABDOMINAL ABSCESS Pathology OSH 11/25 -Benign hypervascular ovarian cyst with adhesions At risk for malnutrition 12/12/2023 Assessment & Plan (12/26/2023 12:35 PM CDT): -Previously on TPN started at OSH; 12/04-12/17 -Pending CT cysto; can consider restarting TPN for nutritional support -Weekly nutrition labs NUTRITION LABS 12/10 Albumin 3.0 Prealbumin 10 12/17 Albumin 3.8 Prealbumin 28 6/ Albumin 4.0 Prealbumin 31.0 Assessment & Plan [...] pain control. Pain well controlled at discharge. Intra-abdominal abscess 12/10/2023 Assessment & Plan (12/28/2023 9:47 AM [...] 1:41 PM CDT): Relevant surgical history: (all [facility]) 06/05/22: lap sigmoidectomy 04/21/23: open VHR with [...] IV cefe/flagyl, CT AP with IV and WY contrast to rule out missed colon injury, LEDs and lower extremity arterial doppler 12/11 LE US studies unrevealing. CT A/P with WY contrast pending. No nausea, continue IV antibiotics. [...] She would like to follow with [facility] IR and General surgery. IR drain yellow [...] and IR follow up on 12/31. [facility] Imagin/23 LE Arterial Dopplers - bilateral lower [...] 12/09 - 12/17 Bactrim 12/18-01/01 (2 weeks) Dyslipidemia 02/09/2023 May-Thurner syndrome 02/09/2023 Chronic back pain 03/15/2022 Chronic headache disorder 03/15/2022 Disorder of gallbladder 03/15/2022 Diverticulitis 03/15/2022 Diverticulosis of colon 03/15/2022 Hemorrhoids 03/15/2022 Obesity with body mass index 30 or greater 03/15 Varicose veins with pain 06/07/2020 Miscarriage 03/01/2019 Overview (09/30/2024): Complete spontaneous w/o complication;Recorded Elsewhere: No Location: [facility] Source: EHR Chronic: N Practice ID: [id number] Billable Time: 04:30:00 PM Pelvic and perineal pain 01/12/2018 Overview (09/30/2024): Pelvic pain;Recorded Elsewhere: No Location: [facility] Source: EHR Chronic: N Practice ID: [id number] Billable Time: 11:00:00 AM Acute vaginitis 01/01/2016 Overview (09/30/2024): Acute vulvovaginitis;Recorded Elsewhere: No Location: [facility] Source: EHR Chronic: N Practice ID: [id number] Billable Time: 11:30:00 AM Female genital symptoms 11/02/2013 Overview (09/30/2024): Unspecified symptom associated with female genital organs;Recorded Elsewhere: No Location: [facility] Source: EHR Chronic: N Practice ID: [id number] Billable Time: 08:30:00 AM Headache 11/02/2013 Overview (09/30/2024): Headache;Recorded Elsewhere: No Location: [facility] Source: EHR Chronic: N Practice ID: [id number] Billable Time: 08:30:00 AM Hematochezia 11/02/2013 Overview (09/30/2024): Blood in stool;Recorded Elsewhere: No Location: [facility] Source: EHR Chronic: N Practice ID: [id number] Billable Time: 08:30:00 AM Sleep apnea 06/17/2012 Nontoxic single thyroid nodule 06/17/2012 Hirsutism 06/17/2012 Abdominal pain 12/17/2011 Overview (09/30/2024): Abdominal pain, other specified site;Recorded Elsewhere: No Location: [facility] Source: EHR Chronic: N Practice ID: [id number] Billable Time: 03:00:00 PM Goiter 09/11/2011 Overview (09/30/2024): Goiter, unspecified;Recorded Elsewhere: No Location: [facility] Source: EHR Chronic: N Practice ID: [id number] Billable Time: 09:15:00 AM Increased frequency of urination 09/11/2011 Overview (09/30/2024): Urinary frequency;Recorded Elsewhere: No Location: [facility] Source: EHR Chronic: N Practice ID: [id number] Billable Time: 09:15:00 AM Seizure disorder Assessment & Plan (12/25/2023 9:16 AM CDT): - Patient reported absence seizures; unknown last seizure; compliant with home meds - Continue home lamotrigine 150mg BID Assessment & Plan (12/19/2023 1:42 PM CDT): -Patient reported absence seizures; unknown last seizure; compliant with home meds - Continue home lamotrigine 150mg BID 12/18 Patient reports taking lamotrigine 150 mg nightly not BID Resolved Problems Problem Noted Date Diagnosed Date Resolved Date Pre-op evaluation 12/11/2023 09/30/2024 Assessment & Plan (12/12/2023 2:15 PM CDT): Fistula Pre-Op Planning (last updated 12/12/23) Primary Care Provider: Rossana Ireland, BIKE SHOP MANAGER Placement or Home Health Company: N/A Current [...] and surgeon: N/A ---IPAP: surgery not scheduled Immunizations Immunization Administration Dates Next Due Influenza, Trivalent, IM [...] materials from doctor or pharmacy Never 12/21/2023 [facility] Utilities Answer Date Recorded In the past 12 months has e [employer], oil, or water [email or web address] threatened to shut off services in your [...] 12/26/2023 How often do you attend chur ch or christian services? Never 12/26/2023 Do you belong to any clubs o r organizations such as baptism groups, unions, fraternal or athletic groups, or school groups? No 12/26/2023 How often do you attend meet ings of the clubs or organizations you belong to? Never 12/26/2023 Are you , , di vorced, , never , or living with a partner? 12/26/2023 AUDIT-C Answer Date Recorded Q1: How often do you have a drink containing alc ohol? Monthly or less 09/30/2024 Q2: How many drinks containi ng alcohol do you have on a typical day when you are drinking? 1 or 2 09/30/2024 Q3: How often do you have si x or more drinks on one occasion? Never 09/30/2024 Overall Financial Resource Strain (CARDIA) Answe r Date Recorded How hard is it for you to pa y for the very basics like food, housing, medical care, and heating? Not hard at all 12/26/2023 PHQ-2 Answer Date Recorded PHQ-2 Total Score 1 12/26/2023 [facility] - Occupational Stress [...] things needed for daily living? No 12/26/2023 PHQ-9 Answer Date Recorded PHQ-9 Total Score 1 12/26/2023 Housing Stability Vital Sign Answer Iron e Recorded In the last 12 months, was t here a time when you were not able to pay the mortgage or rent on time? No 12/26/2023 In the past 12 months, how m any times have you moved where you were living? 0 12/26/2023 At any time in the past [address] [facility], were you homeless or living in a half-way (including now)? No 12/26/2023 Personal Safety Answer Date Recorded Have you ever been in or are you currently in a harmful physical or emotional relationship or is someone making you feel afraid or unsafe? 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 Gender Identity Female 12/22/2023 9:56 AM CDT Sexual Orientation Straight 12/22/2023 9: 56 AM CDT Last Filed Vital Signs Vital Sign Reading Time Taken Comments Blood Pressure 124/83 01/25/2025 11:26 AM CDT Pulse 89 01/25/2025 11:26 AM CDT Temperature 36.5 C (97.7 F) 01/25/2025 11:26 AM CDT Respiratory Rate 16 01/25/2025 11:2 6 AM CDT Oxygen Saturation 100% 01/25/2025 11: 26 AM CDT Inhaled Oxygen Concentration - - Weight 111.3 kg (245 lb 6.4 oz) 025 11:26 AM CDT Height 172.7 cm (5' 8) 01/25/2025 11:2 6 AM CDT Body Mass Index 37.31 01/25/2025 11:26 AM CDT Plan of Treatment Not on file Procedures Procedure Name Priority Date/Time Associated Diagnosis Comments CT ABDOMEN PELVIS WO CONTRAST Schedule Routine, Read Routine (OP Routine) 01/25/2025 10:31 AM CDT Infected hernioplasty mesh, initial encounter from Last 3 Months Results * CT abdomen pelvis without contrast (01/25/2025 10:31 AM CDT) Anatomical Region Laterality Modality Body N/A Computed Tomogra phy 01/25/2025 11:0 2 AM CDT Impressions 01/25/2025 11:02 AM CDT 1. Changes from ventral wall reconstruction with unchanged soft tissue thickening in the superficial soft tissues. 2. Unchanged diastases of the rectus muscles. 3. Indeterminate right ovarian lesion which measures slightly higher attenuation than simple fluid. This could represent a cyst with proteinaceous or hemorrhagic debris. If further characterization is desired an ultrasound can be performed. Electronically signed by: Mason Daniel M.D. Narrative 01/25/2025 11:02 AM CDT EXAMINATION: Computed tomography of the abdomen/pelvis without intravenous contrast HISTORY: Hernia, evaluate for metastases infection TECHNIQUE: Transaxial computed tomographic images of the abdomen/pelvis were obtained without intravenous contrast according to the standard protocol after the uneventful administration of 0 mL Opti-Ray 350 intravenous contrast. COMPARISON: 10/06/2024 FINDINGS: The lung bases are clear. Heart size is normal. There is a normal noncontrast CT appearance of the liver, pancreas, adrenal glands, spleen, and kidneys. The gallbladder is absent. The bladder is normal appearing. There is intrauterine device in place. There is a right ovarian lesion which measures slightly higher attenuation than simple fluid measuring 4.0 by 5 cm. There are bilateral ovarian follicles. There are changes from a sigmoidectomy with reanastomosis. There is no abnormal bowel wall thickening or dilatation. Trace free fluid. No free gas. No abdominal or pelvic lymphadenopathy. Redemonstrated is diastases of the rectus muscles. There are changes from prior hernia repair with unchanged soft tissue thickening in the superficial abdominal wall, best appreciated on image 168. There is no organized fluid collection. Bone windows show no suspicious lytic or blastic lesions. Procedure Note Mason Daniel MD - 01/25/2025 EXAMINATION: Computed tomography of the abdomen/pelvis without intravenous contrast HISTORY: Hernia, evaluate for metastases infection TECHNIQUE: Transaxial computed tomographic images of the abdomen/pelvis were obtained without intravenous contrast according to the standard protocol after the uneventful administration of 0 mL Opti-Ray 350 intravenous contrast. COMPARISON: 10/06/2024 FINDINGS: The lung bases are clear. Heart size is normal. There is a normal noncontrast CT appearance of the liver, pancreas, adrenal glands, spleen, and kidneys. The gallbladder is absent. The bladder is normal appearing. There is intrauterine device in place. There is a right ovarian lesion which measures slightly higher attenuation than simple fluid measuring 4.0 by 5 cm. There are bilateral ovarian follicles. There are changes from a sigmoidectomy with reanastomosis. There is no abnormal bowel wall thickening or dilatation. Trace free fluid. No free gas. No abdominal or pelvic lymphadenopathy. Redemonstrated is diastases of the rectus muscles. There are changes from prior hernia repair with unchanged soft tissue thickening in the superficial abdominal wall, best appreciated on image 168. There is no organized fluid collection. Bone windows show no suspicious lytic or blastic lesions. IMPRESSION: 1. Changes from ventral wall reconstruction with unchanged soft tissue thickening in the superficial soft tissues. 2. Unchanged diastases of the rectus muscles. 3. Indeterminate right ovarian lesion which measures slightly higher attenuation than simple fluid. This could represent a cyst with proteinaceous or hemorrhagic debris. If further characterization is desired an ultrasound can be performed. Electronically signed by: Mason Daniel M.D. Attila Jose Foster MD IMG CT PROCEDURES Fi nal Result from Last 3 Months Insurance [facility] CHOICE PLUS [employer] [facility] CHOICE PLUS [place] [facility] Advance Directives For more information, please contact: [phone] * Full Code (Latest Code Status on [...] 9:24 PM 12/19/2023 10:20 PM Care Teams Kennel Helper Relationship Specialty Start Date End Date Diomedes Seals MD [address] [place] [place] [address] PCP - General Family Medicine 12/28/23
--- OUTSIDE RECORDS SUMMARY | 2025-02-04 14:34 | XMS_ITS | Continuity of Care Document ---
Author Organization [facility] Address [address] [facility] [place] [address] Phone Care Team Providers Care Nuclear Technician Name Role Phone Hema Arreola MD Unavailable [...] Diagnoses Date Provider Providers Copied on Encounter [facility], [address], [place], [id number], [place] tel:[phone] [facility] No Information [address]. [address], [place], [place], [id number] , [place]. tel:[phone] OFFICE/OUTPA TIENT VISIT, EST [facility], [address], [place], [place], [id number], [place] tel:[phone] [facility] HTN (chief complaint) hyponatrem ia (chief complaint) anxiety1 (chief complaint) sinus (chief complaint) sleep apnea1 (chief complaint) Sleep apneaEssential (primary) hypertensionHyponat remiaAbnormality of plasma proteinGeneralized Anxiety Disorder 0 Maxwell Garrido. [address], [place], [place], [id number] , [place]. tel:[phone] [facility], [address], [place], [place], [address], [place] tel:[phone] [facility] protein1 (chief complaint) hyponatrem ia1 (chief complaint) HTN (chief complaint) anxiety1 (chief complaint) sinus1 (chief complaint) Sleep apneaEssential (primary) hypertensionHyponat remiaAbnormality of plasma protein 0 0 Maxwell [address]. [address], [address], [place], [place], [address] , [place]. tel:[phone] Referring Provider: Hema Arreola, [address], [place], [place], [id number]. tel:[phone] PREV VISIT, EST, AGE 18-39 [facility], [address], [place], [place], [address], [place] tel:[phone] [facility] physical (chief complaint) Encntr for general adult medical exam w/o abnormal findings 0 Maxwell [address]. [address], [place], [place], [id number] , [place]. tel:[phone] Referring Provider: Hema Arreola [address], [place], [place], [id number]. tel:[phone] OFFICE/OUTPA TIENT VISIT, EST [facility], [address], [place], [place], [id number], [place] tel:[phone] [facility] HTN (chief complaint) sleep apnea1 (chief complaint) seizure1 (chief complaint) Body mass index (BMI) 38.0-38.9, adultSleep apneaEssential (primary) hypertensionEpileps yVentral hernia [address], [place], [place], [id number] , . tel:[phone] Referring Provider: Ge[address], [place], [place], [address]. tel:[phone] PREV VISIT, NEW, AGE 18-39 [facility], [address], [place], [place], [address], [place] tel:[phone] [facility] Physical (chief complaint) Encntr for general adult medical exam w/o abnormal findings 9 Maxwell [address]arrido. [address], [place], [place], [address] , [place]. tel:[phone] Referring Provider: Geovanni [address] [facility] [address], [place], [place], [id number]. 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
--- OUTSIDE RECORDS SUMMARY | 2025-02-04 14:34 | XMS_ITS | Clinical Summary ---
Author Organization [facility] Address [address] [place] [address] Care Team Providers Care [employer] Name Role Phone Diomedes Seals MD Primary Care Provider + [phone] Allergies Active Allergy Reactions Criticality Noted Date [...] (two) times a day 60 tablet 1 02/06/20 25 Active Active Problems Problem Noted [...] dispo -12/[address] scan with OK contrast 12/16 Starting clear liquids but continuing [...] identified at OSH on 12/04 -Transfer to [facility] for higher level of care with prior EGS admission 12/09-12/18 Pathology OSH 11/25 -Benign hypervascular ovarian cyst with adhesions Assessment & Plan (12/12/2023 12:17 PM CDT): -OSH OR 11/25, initially planned for elective surgery; c/b intraabdominal hemorrhage, OSH General Surgery c/s intra-op > Op notes obtained and uploaded in Media -Post op course c/b abscess c/f ECF -Transfer to [facility] for higher level of care - [...] Prealbumin 10 12/17 Albumin 3.8 Prealbumin 28 12/24 Albumin 4.0 Prealbumin 31.0 Assessment & Plan [...] 9:47 AM CDT): Relevant surgical history: (all [facility]) 06/05/22: lap sigmoidectomy 04/21/23: open VHR with [...] 1:41 PM CDT): Relevant surgical history: (all [facility]) 06/05/22: lap sigmoidectomy 04/21/23: open VHR with [...] IV cefe/flagyl, CT AP with IV and OK contrast to rule out missed colon injury, LEDs and lower extremity arterial doppler 12/11 LE US studies unrevealing. CT A/P with OK contrast pending. No nausea, continue IV antibiotics. [...] check. She would like to follow with [facility] IR and General surgery. IR drain [...] EGS and IR follow up on 12/31. [facility] Imagin/23 LE Arterial Dopplers - bilateral [...] Complete spontaneous w/o complication;Recorded Elsewhere: No Location: [facility] Source: EHR Chronic: N Practice ID: [id number] Billable Time: 04:30:00 PM Pelvic and perineal pain 01/12/2018 Overview (09/30/2024): Pelvic pain;Recorded Elsewhere: No Location: [facility] Source: EHR Chronic: N Practice ID: [id number] Billable Time: 11:00:00 AM Acute vaginitis 01/01/2016 Overview (09/30/2024): Acute vulvovaginitis;Recorded Elsewhere: No Location: [facility] Source: EHR Chronic: N Practice ID: [id number] Billable Time: 11:30:00 AM Female genital symptoms 11/02/2013 Overview (09/30/2024): Unspecified symptom associated with female genital organs;Recorded Elsewhere: No Location: [facility] Source: EHR Chronic: N Practice ID: [id number] Billable Time: 08:30:00 AM Headache 11/02/2013 Overview (09/30/2024): Headache;Recorded Elsewhere: No Location: [facility] Source: EHR Chronic: N Practice ID: [id number] Billable Time: 08:30:00 AM Hematochezia 11/02/2013 Overview (09/30/2024): Blood in stool;Recorded Elsewhere: No Location: [facility] Source: EHR Chronic: N Practice ID: [id number] Billable Time: 08:30:00 AM Sleep apnea 06/17/2012 Nontoxic single thyroid nodule 06/17/2012 Hirsutism 06/17/2012 Abdominal pain 12/17/2011 Overview (09/30/2024): Abdominal pain, other specified site;Recorded Elsewhere: No Location: [facility] Source: EHR Chronic: N Practice ID: [id number] Billable Time: 03:00:00 PM Goiter 09/11/2011 Overview (09/30/2024): Goiter, unspecified;Recorded Elsewhere: No Location: [facility] Source: EHR Chronic: N Practice ID: [id number] Billable Time: 09:15:00 AM Increased frequency of urination 09/11/2011 Overview (09/30/2024): Urinary frequency;Recorded Elsewhere: No Location: [facility] Source: EHR Chronic: N Practice ID: [id number] [...] updated 12/12/23) Primary Care Provider: Rossana Ireland, ECONOMIC RESEARCH ASSISTANT Placement or Home Health Company: N/A Current [...] and surgeon: N/A ---IPAP: surgery not scheduled Encounters Date Type Department Care Team Description 01/28/2025 Orders Only [facility] Obstetrics and Gynecology [address] [place] [address] Dorie Jordan Rai, NP Cyst of right ovary (Primary Dx) 01/25/2025 11:00 AM CDT Office Visit [facility] Department of Surgery [address] [place] [address] [address]th [place] [address] [place] [address] Attila Foster MD Infected hernioplasty mesh, subsequent encounter (Primary Dx) 01/25/2025 9:26 AM CDT - 01/25/2025 11:59 PM CDT Hospital Encounter [facility] [address] [place] [id number] Infected hernioplasty mesh, initial encounter Discharge Disposition: Discharge to home or self care 12/07/2024 10:30 AM CDT Office Visit [facility] Department of Surgery [address] [place] [address] 12th [place] [address] [place] [address] Attila Foster MD Infected hernioplasty mesh, initial encounter (Primary Dx); Open wound anterior abdominal wall, subsequent encounter; Encounter for smoking cessation counseling 11/05/2024 10:30 AM CDT Office Visit [facility] Department of Surgery [address] [place] [address] [address]th [place] [address] [place] [address] Attila Foster MD Infected hernioplasty mesh, initial encounter (Primary Dx); Open wound anterior abdominal wall, subsequent encounter; Encounter for smoking cessation counseling from Last 3 Months Immunizations Immunization Administration Dates Next Due Influenza, Trivalent, IM (MDV) 06/12/2012 Surgical History Surgery Date Site/Laterality Comments DILATION AND CURETTAGE, DIAG NOSTIC / THERAPEUTIC VEIN LIGATION AND STRIPPING CHOLECYSTECTOMY APPENDECTOMY SECTION 2 BREAST CYST EXCISION ABSCESS CATHETER INJECTION 12/19/2023 N/A ABSCESS CATHETER INJECTION 01/01/2024 N/A ABSCESS CATHETER INJECTION 01/12/2024 N/A ABSCESS CATHETER INJECTION 02/04/2024 N/A VENTRAL HERNIA REPAIR 04/20/2023 - 05/20/2023 Medical History Medical History Date Comments Celiac disease Varicose veins of leg with edema, bilateral Seizure disorder (HCC) Diverticulitis Hypertension Sleep apnea GERD (gastroesophageal reflux disease) DVT (deep venous thrombosis) (HCC) Depression Stroke (HCC) Chronic kidney disease [...] materials from doctor or pharmacy Never 12/21/2023 [facility] Utilities Answer Date Recorded In the past 12 months has th e [employer], gas, oil, or water [employer] threatened to shut off services in your [...] often do you attend chur ch or amish services? Never 12/26/2023 Do you belong to any clubs o r organizations such as jain groups, unions, fraternal or athletic groups, or [...] Date Recorded PHQ-2 Total Score 1 12/26/2023 [facility] - Occupational Stress [...] any time in the past 12 m [facility], were you homeless or living in a senior care (including now)? No 12/26/2023 Personal Safety Answer Date Recorded Have you ever been in or are you currently in a harmful physical or emotional relationship or is someone making you feel afraid or unsafe? 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 Gender Identity Female 12/22/2023 9:56 AM CDT Sexual Orientation Straight 12/22/2023 9: 56 AM CDT Obstetrics History Para Term AB IAB SAB Ectopic Multiple Livin g Live Births 4 2 2 2 2 2 2 Date Outcome GA Total Labor Labor/2nd/3rd Weight Sex Type Anes PTL Elizabeth A1 A5 Name Clin SAB D&C SAB SAB 2001 Term 40w 0d 3.771 kg (8 lb 5 oz) F C-Sec tion Living Complications:None 2009 Term 40w 0d 3.232 kg (7 lb 2 oz) F C-Sec tion Living Complications:None Last Filed Vital Signs Vital Sign Reading [...] 01/25/2025 11:26 AM CDT Plan of Treatment Health Maintenance Due Date Last Done Comments Cervical Cancer Screening 1979 Colon Cancer Screening-Colonoscopy 1979 Hepatitis C Screening 1979 DTaP/Tdap/Td Vaccine (1 - Tdap) 10/01/1990 Varicella Vaccines (1 of 2 - 13+ 2-dose series) 10/01/1992 Hepatitis B Screening 10/01/1997 Pneumococcal vaccine <65 (1 of 2 - PCV) 10/01/1998 Covid-19 Vaccine (3 - 2023-2 5 season) 2024 11/25/2020, 11/03/2020 Breast Cancer Screening-Mammogram 04/29/2024 04/29/2023, 01/10/2020 Depression Screening 12/23/2024 12/24/2023 Influenza Vaccine (#1) 2025 06/12/2012 Regular Well Visit/Exam 18-64 09/30/2025 09/30/2024 HPV Vaccines Aged Out No longer eligi [...] nal Result from Last 3 Months Insurance [facility] CHOICE PLUS IDPA [facility] CHOICE PLUS IDPA [facility] Member Subscriber Plan / Payer (Ef fective 2021-Present) Name:Devi Hernandez Member ID:[id number] Relation to Subscriber:Spouse Name:MARLON HERNANDEZ Subscriber ID:[id number] Date of :1974 (Home) Address: [address] [place] [address] Payer ID:[id number] (NAIC) Type:[facility] HMO/PPO Address: [address] [facility] Member Subscriber Plan / Payer (Ef fective 2021-Present) Name:Devi Hernandez Member ID:[id number] Relation to Subscriber:Spouse Name:MARLON HERNANDEZ Subscriber ID:[id number] Date of :1975 (Home) Address: [address] [place], [place] [address] Payer ID:[id number] (NAIC) Type:[facility] HMO/PPO Address: [address] [facility] Advance Directives For more information, please contact: [phone] * Full Code (Latest Code Status on [...] 9:24 PM 12/19/2023 10:20 PM Care Teams [employer] Relationship Specialty Start Date End Date Diomedes Seals MD [address] [place] [address] PCP - General Family Medicine 12/28/23
--- OUTSIDE RECORDS SUMMARY | 2025-02-04 14:34 | XMS_ITS | Data Portability ---
Author Organization [facility] Address [address] [place] [address] [place] [address] Care Team Providers Care Staff Services Manager Name Role Phone VOLODYMYR MAS Primary Care Provider [phone] Assessment Encounter Date Assessment Date Assessment LastModified by Organization Details LastModified Time 01/29/2023 01/29/2023 Annual gynecological exam performed. Patient will come back in a year unless there are new symptoms. Not available 01/29/2023 15:40:17 Plan of Treatment Reminders Order Date Submit Date Provider Last Modified By Organization Details Last Modified Time Details Appointments None recorded. Lab ova1, serum 2023 024 [facility] (Lab), [address] [place], [address], 4 13:08:41 testosteron e, total, serum 2023 024 [facility] (Lab), [address] [place], [address], 4 08:01:17 Referral None recorded. Procedures None recorded. Surgeries laparoscopi c ovarian cystectomy (SURG) 2023 024 [facility], [address], [place], [address], 4 19:38:14 Imaging US, pelvis 2023 024 [email or web address] [address], [address], [place], [address], 4 18:11:47 US, transvagina l 2023 024 [email or web address] [address], [address], [place], [address], 4 18:11:47 MAMMO, screening, bilateral 2022 [facility]23 [facility], [address], [place], [address], 3 13:49:52 Medication Orders None recorded. 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 Not Available [facility] (Lab) [address], [place], [address], 01/30/2023 17:19:26 10/02/19 24 2023 TESTO STERO NE, TOTAL testosterone , total 43 NG/dL 0-[address] [facility] (Lab) [address] [facility], [place], [address], 10/03/2023 08:01:17 10/24/19 24 10/24/2023 OVA 1 scan result See Scanne d Result Not Available [facility] (Lab) [address] [facility], [place], [address], 10/29/2023 13:08:41 04/29/20 23 04/29/2023 MAMMO , scree cora, bilat eral No observ ation record ed. [address] [address], [place], [address], 2023 11:18:12 05/12/20 23 05/12/2023 US, breas t, unila teral No observ ation record ed. [address] [address], [place], [address], 2023 11:18:12 10/13/19 24 10/13/2023 US, pelvi s No observ ation record ed. [email or web address] [facility] [address], [place], [address], 10/13/2023 18:22:08 10/13/19 24 10/13/2023 US, trans vagin al No observ ation record ed. [email or web address] [facility] [address], [place], [address], 10/13/2023 18:21:54 10/13/19 24 10/13/2023 US, pelvi s No observ ation record ed. [email or web address] [address], [place], [address], 10/14/2023 15:10:45 11/26/19 24 11/26/2023 XR, abdom en + pelvi s No observ ation record ed. [email or web address] [address], [address], 11/26/2023 21:53:59 11/28/19 24 11/28/2023 XR, chest , 1 view No observ ation record ed. [address], [place], [address], 12/16/2023 14:57:21 11/28/19 24 11/28/2023 XR, chest , 1 view No observ ation record ed. [address], [place], [address], 12/16/2023 14:56:54 11/28/19 24 11/28/2023 CT, chest + abdom en + pelvi s, w/o contr ast No observ ation record ed. [address] [address], [place], [address], 12/16/2023 12:10:37 11/29/19 24 11/28/2023 CT, chest + abdom en + pelvi s, w/o contr ast No observ ation record ed. [address] [address], [place], [address], 12/16/2023 12:10:14 11/29/19 24 11/29/2023 CT, chest + abdom en + pelvi s, w/o contr ast No observ ation record ed. [address] [facility], [place], [address], 12/16/2023 12:09:45 11/29/19 24 11/29/2023 trans -thor acic echoc ardio gram (TTE) (PROC ) No observ ation record ed. [address] [address], [place], [address], 12/11/2023 16:39:34 11/29/19 24 11/29/2023 CT, angio gram, chest , w/o contr ast No observ ation record ed. [address] [address], [place], [address], 12/11/2023 16:37:34 11/29/19 24 11/29/2023 XR, abdom en + pelvi s No observ ation record ed. [address], [place], [address], 12/11/2023 16:02:26 11/30/19 24 11/30/2023 XR, chest , 1 view No observ ation record ed. [address] [address], [place], [address], 12/11/2023 15:57:33 12/05/19 24 12/05/2023 CT, abdom en + pelvi s, w/o contr ast No observ ation record ed. [address] [address], [place], [address], 12/11/2023 16:20:23 12/05/19 24 12/05/2023 inser tion of tempo rary indwe lling bladd er ranjan ter, compl icate d (PROC ) No observ ation record ed. [address] [address], [place], [address], 12/11/2023 16:05:38 12/08/19 24 12/08/2023 CT, abdom en + pelvi s, w/ contr ast No observ ation record ed. [address] [address], [place], [address], 12/08/2023 21:51:16 12/09/19 24 12/08/2023 CT, abdom en + pelvi s, w/ contr ast No observ ation record ed. [address] [address], [place], [address], 12/09/2023 21:30:46 Result Notes None recorded. Problems Name Problem SNOMED Code Status Onset Date Resolution Date Notes Provider Name and Address Organization Details Recorded Time Increase d frequenc y of urinatio n [id number] Completed 201112/19/2020 Urinary frequency ;Recorded Elsewhere : No Locati on: [facility] So urce: EHR Chron ic: N Practic e ID: 0001 [place] able Time: 09:15:00 AM Nannette Jiménez [facility] 15:20:43 Screenin g for malignan t neoplasm of cervix Completed 201112/19/2020 Screening for malignant neoplasms of the cervix;Re corded Elsewhere : No Locati on: [facility] So urce: EHR Chron ic: N Practic e ID: 0001 [place] able Time: 09:15:00 AM Nannette [facility] 15:20:52 Goiter [id number] Completed 201112/19/2020 Goiter, unspecifi ed;Record ed Elsewhere : No Locati on: [facility] So urce: EHR Chron ic: N Practic e ID: 0001 [place] able Time: 09:15:00 AM Nannette Jiménez [facility] 15:20:39 Abdomina l pain [id number] Completed 201112/19/2020 Abdominal pain, other specified site;Cristopher rded Elsewhere : No Locati on: [facility] So urce: EHR Chron ic: N Practic e ID: 0001 [place] able Time: 03:00:00 PM Nannette [facility] 15:20:25 Pregnanc y test negative [id number] Completed 201112/19/2020 examinati on or test, negative result;Re corded Elsewhere : No Locati on: [facility] So urce: EHR Chron ic: N Practic e ID: 0001 [place] able Time: 09:30:00 AM Nannette Jiménez [facility] 15:20:49 Adult health examinat ion Completed 201112/19/2020 Routine Medical Exam;Cristopher rded Elsewhere : No Locati on: [facility] So urce: EHR Chron ic: N Practic e ID: 0001 [place] able Time: 09:30:00 AM Nannette Jiménez [facility] 15:20:30 Hematoch ezia [id number] Completed 201312/19/2020 Blood in stool;Rec orded Elsewhere : No Locati on: [facility] So urce: EHR Chron ic: N Practic e ID: 0001 [place] able Time: 08:30:00 AM Nannette Jiménez [facility] 15:20:42 Speciali zed medical examinat ion Completed 201312/19/2020 Gynecolog ical Examinati on;Record ed Elsewhere : No Locati on: [facility] So urce: EHR Chron ic: N Practic e ID: 0001 [place] able Time: 08:30:00 AM Nannette Jiménez [facility] 15:20:56 Female genital organ symptoms [id number] Completed 201312/19/2020 Unspecifi ed symptom associate d with female genital organs;Re corded Elsewhere : No Locati on: [facility] So urce: EHR Chron ic: N Practic e ID: 0001 [place] able Time: 08:30:00 AM Nannette Jiménez [facility] 15:20:35 Headache [id number] Completed 201312/19/2020 Headache; Recorded Elsewhere : No Locati on: [facility] So urce: EHR Chron ic: N Practic e ID: 0001 [place] able Time: 08:30:00 AM Nannette Jiménez [facility] 15:20:40 Removal of intraute rine device Completed 201312/19/2020 REMOVAL OF IUD;Recor ded Elsewhere : No Locati on: [facility] So urce: EHR Chron ic: N Practic e ID: 0001 [place] able Time: 11:45:00 AM Nannette [facility] 15:20:50 Insertio n of intraute rine contrace ptive device Completed 201312/19/2020 INSERTION OF IUD;Recor ded Elsewhere : No Locati on: [facility] So urce: EHR Chron ic: N Practic e ID: 0001 [place] able Time: 08:00:00 AM Nannette Jiménez [facility] 15:20:45 Family planning surveill ance Completed 201312/19/2020 Contracep tive surveilla nce, unspecifi ed;Record ed Elsewhere : No Locati on: [facility] So urce: EHR Chron ic: N Practic e ID: 0001 [place] able Time: 08:45:00 AM Nannette Jiménez [facility] 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 15:20:55 Acute vaginiti s [id number] Completed 201512/19/2020 Acute vulvovagi nitis;Rec orded Elsewhere : No Locati on: [facility] So urce: EHR Chron ic: N Practic e ID: 0001 [place] able Time: 11:30:00 AM Nannette Jiménez [facility] 15:20:[address] Concept Completed 201612/19/2020 Encntr for general adult medical exam w/o abnormal findings; Recorded Elsewhere : No Locati on: [facility] So urce: EHR Chron ic: N Practic e ID: 0001 [place] able Time: 11:00:00 AM Nannette Jiménez [facility] 15:20:53 Pelvic and perineal pain [id number] Completed 201712/19/2020 Pelvic pain;Cristopher rded Elsewhere : No Locati on: [facility] So urce: EHR Chron ic: N Practic e ID: 0001 [place] able Time: 11:00:00 AM Nannette Jiménez [facility] 15:20:47 Miscarri age [id number] Completed 201812/19/2020 Complete spontaneo us w/o complicat ion;Recor ded Elsewhere : No Locati on: [facility] So urce: EHR Chron ic: N Practic e ID: 0001 [place] able Time: 04:30:00 PM Nannette Jiménez [facility] 15:20:46 Evaluati on finding Completed 201812/19/2020 Hematuria , unspecifi ed;Record ed Elsewhere : No Locati on: [facility] So urce: EHR Chron ic: N Practic e ID: 0001 [place] able Time: 04:30:00 PM Nannette Jiménez [facility] 15:20:32 Finding of menstrua l bleeding Completed 201912/19/2020 Menorrhag ia;Record ed Elsewhere : No Locati on: [facility] So urce: EHR Chron ic: N Practic e ID: 0001 [place] able Time: 03:30:00 PM Nannette Jiménez [facility] 15:20:37 Problem Notes None recorded. Procedures Surgical History Date Name Laterality Status Provider Name and Address Organization Details Recorded Time 024 LAPAROSCOPIC OVARIAN CYSTECTOMY (SURG) completed Emrewander Bradley [facility] 11/27/2023 09:28:27 024 LAPAROSCOPIC OVARIAN CYSTECTOMY (SURG) completed Emre Bradley [facility] 11/27/2023 09:28:14 023 hernia repair completed Vidhi Garza [facility] [address], [place], [address], [facility] 2023 11:19:54 022 procedure on colon completed Nannette Callahan [facility] 08/12/2022 11:39:06 022 Date of Last Mammogram completed Nikki Bee [facility] 01/29/2023 15:40:43 022 Date of Last Pap Smear completed Nikki Bee [facility] 01/29/2023 15:41:28 020 IUD Insertion completed Vidhi Garza [facility] [address], [place], [address], [facility] 12/22/2019 13:43:45 011 Appendectomy completed Arianne Craig [facility] 09/08/2021 12:19:53 009 section completed Arianne Craig [facility] 09/08/2021 12:20:23 005 [facility]/08/2021 12:19:46 005 varicose vein operation completed Ariannekasandra Craig [facility] 09/07/2021 17:57:58 002 section completed Arianne Craig [facility] 09/08/2021 12:20:31 001 Dilation and Curettage completed Ariannekasandra Craig [facility] 09/08/2021 12:20:05 980 transfusion of blood product completed Ariannekasandra Craig [facility] 09/08/2021 12:19:58 Imaging Results None recorded. Procedure Notes None recorded. Medical Equipment None Reported. Allergies Allergen ID Allergen Name Allergen Category Reaction Reaction Severity Criticality Documentation Date Start Date Code Code System Note Provider Name and Address Organization Details Recorded Time 11593 Gluten (substanc e) food,medi cation abdominal pain severe Not available 12/19/2020 30204 004 SNOMED Nannette Jiménez [facility], [facility] 1 15:15:52 827 Iodinated contrast media (substanc e) medicatio n cough moderate Not available 12/21/2019 72116 2004 SNOMED Shelbi Rod [facility], [facility] 0 15:23:38 Medications Name Sig Start [...] Prescrib ed Elsewher e: Yes Loca tion: [facility] odify By: cheyenne Quano unter DateTime : 05/12/20 12 09:30:00 AM Not [...] every day with food 10/30 completed Prescrib ed Elsewher e: Yes Loca tion: [facility] odify By: cheyenne lli Enco unter DateTime : 05/12/20 09:30:00 AM Not Available Not Available Not [...] Prescrib ed Elsewher e: Yes Loca tion: [facility] odify By: taylor roberts DateTime : 11/03/19 [...] Prescrib ed Elsewher e: Yes Loca tion: [facility] odify By: cheyenne thorpe DateTime : 05/12/20 [...] Prescrib ed Elsewher e: Yes Loca tion: [facility] odify By: artur Peñaloza ncounter DateTime : 01/01/20 16 11:30:00 AM [...] Prescrib ed Elsewher e: Yes [facility] By: artur Peñaloza ncounter DateTime : 12/27/19 15 02:00:00 PM Not Available Not Available Not Available B Complex 100 01/15 completed Not Available Not Available Not Available B Complex 1.7 mg-20 mg-2 mg-1.2 mg/mL sublingua l liquid 12/19 completed Prescrib ed Elsewher e: Yes [facility] By: parekr Peñaloza ncounter DateTime : 01/01/20 16 11:30:00 AM Not Available Not Available Not Available Allergy Relief (cetirizi ne) 12/19 completed Not Available Not Available Not Available lamotrigi ne ER 25 mg tablet,ex tended release 24 hr 12/19 completed Prescrib ed Elsewher e: Yes Loca tion: Sylviakilotuan peñaloza [facility] odify By: parker Peñaloza ncounter DateTime : 01/01/20 16 11:30:00 AM Not Available Not Available Not Available Melissa Allergy active Not Available Not Available Not Available Multivita mins 28 mg iron-800 mcg tablet 01/12 completed Prescrib ed Elsewher e: Yes [facility] odify By: artur tomunter DateTime : 01/01/20 16 11:30:00 AM Not Available Not Available Not Available Allergy Relief-Si nus Headache 25 mg-5 mg-325 mg tablet 08/12 completed Prescrib ed Elsewher e: Yes [facility] odify By: taylor roberts DateTime : [...] Prescrib ed Elsewher e: No Locat ion: Sylviasydney anabela [facility] odify By: taylor roberts DateTime : 11/03/19 14 08:30:00 AM Not Available Not Available Not Available Vitals Date Recorded Systolic And Diastolic Provider Name and Address Organization Details Last Updated DateTime 2023 132/78 mm[Hg] Vidhi Garza, [facility]- [address], [place], [address], [place] [facility] 2023 11:18:12 Date Recorded Body height Body mass index (BMI) Body weight Provider Name and Address Organization Details Last Updated DateTime 2023 170.18 cm 36.8 kg/m2 768266.21 g Opal Ibrahim [facility] 2023 10:49:08 Date Recorded Body height Body mass index (BMI) Body weight Systolic And Diastolic Provider Name and Address Organization Details Last Updated DateTime 10/24/2023 170.18 cm 37.3 kg/m2 936550.98 g 146/85 mm[Hg] Nannette Sindy [facility] 10/24/2023 12:39:10 Date Recorded Body height Body mass index (BMI) Body weight Systolic And Diastolic Provider Name and Address Organization Details Last Updated DateTime 11/21/2023 170.18 cm 37.6 kg/m2 911805.17 g 138/82 mm[Hg] Linda Escobar [facility] 11/21/2023 12:15:16 Date Recorded Systolic And Diastolic Provider Name and Address Organization Details Last Updated DateTime 01/29/2023 132/84 mm[Hg] Vidhi Garza [facility]- [address], [place], [address], [facility] 01/29/2023 18:44:26 Date Recorded Body height Body mass index (BMI) Body weight Provider Name and Address Organization Details Last Updated DateTime 01/29/2023 170.18 cm 36.3 kg/m2 327763.43 g Nikki Bee [facility] 01/29/2023 15:40:29 Social History Question Answer Notes LastModified by Organizat ion Details LastModified Time Tobacco Smoking Status Never Smoker Nikki hua, [facility] 01/29/2023 15:40:47 Do You Have An Advance Directive? Yes Information n ot available 12/19/2020 How Many Years Have You Consumed Alcohol? 26 Information not available 12/19/2020 Are You Blind Or Do You Have Difficulty Seeing? No Information n ot available 12/19/2020 What Is Your Level Of Caffeine Consumption? Moderate Information not available 12/19/2020 How Much Tobacco Do You Chew? None Information not available 12/19/2020 In The 14 Days Before Symptom Onset, Have You Had Close Contact With A Laboratory-confirm ed COVID-19 While That Case Was Ill? No Information n ot available 12/19/2020 In The 14 Days Before Symptom Onset, Have You Had Close Contact With A Person Who Is Under Investigation For COVID-19 While That Person Was Ill? No Information not available 12/19/2020 Have You Been To An Area Known To Be High Risk For COVID-19? No Information not available 12/19/2020 Are You Deaf Or Do You Have Serious Difficulty Hearing? No Information not available 12/19/2020 What Type Of Diet Are You Following? GLUTENFREE Information n ot available 12/19/2020 What Is The Highest Grade Or Level Of School You Have Completed Or The Highest Degree You Have Received? [id number] Information not available 12/19/2020 Are There Any Guns Present In Your Home? Yes Information not available 08/14/2021 Have You Ever Been Counseled For Unhealthy Alcohol Use? No Information not available 01/29/2023 Do You Use Protection During Sex? No Information not available 12/19/2020 Do You Use Your Seat Belt Or Car Seat Routinely? Yes Information not available 12/19/2020 Are You Sexually Active? Yes [email or web address] Information not available 11/21/2023 Do You Have [...] No Information not available 12/19/2020 Do You Have Difficulty Walking Or Climbing Stairs? No Information not available 01/29/2023 Sex: Unknown Functional Status Question Answer Note LastModified by Organizat ion Details LastModified Time Do you use any illicit or recreational drugs? No Information not available 12/19/2020 Do you or have you ever used any other forms of tobacco or nicotine? No Information not available 01/29/2023 What is your level of alcohol consumption? Occasional Information not available 12/19/2020 Are you currently employed? Yes [email or web address] Information not available 11/21/2023 Are you able to walk? YESWOREST Information not available 12/19/2020 Are you able to care for yourself? 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 No Information not available 01/29/2023 What is your exercise level? Occasional Information not available 12/19/2020 Mental Status Question Answer Note LastModified by Organization D etails LastModified Time Do you feel stressed (tense, restless, nervous, or anxious, or unable to sleep at night)? [id number] Information not available 08/14/2021 Family History Relationship Description Onset Age of this Age Resolved Age Notes LastModified by Organization Details LastModified Time Maternal Grandmother Carcinoma in situ of breast 60 Not available 09/08 12:20:54 Medical History Condition Response Other Y Blood Transfusion Y Dermatologic Disorders N Gestational Diabetes N Anxiety Disorder Y Autoimmune disease N Arthritis Y Polyps N Infertility N Acid Reflux (GERD) Y Cancer N Varicosities N Stroke N Neurologic/Epilepsy Y Fibromyalgia N Headaches N Kidney Disease N Heart Problems N Kidney or Bladder Problems N Eating Disorder N Art (IVF or FET) N Hepatitis/Liver Disease N No Past Medical History N Urinary Tract Infection N Asthma N Trauma/Violence N Thrombophilias N Allergies (Food, seasonal, environmental ) Y Breast Cancer N Drug/Latex Allergies/Reactions Y Lung Disease N Defects or Inherited Disease N Breast Problem N Hematologic disorders Y Anesthesia Complications N History of STI N Deep Vein Thrombosis N Polycystic ovary syndrome N History of abnormal pap N Endometriosis N High Cholesterol N Thyroid Problems N GI Problems Y Anemia N Psychiatric Illness N Ovarian Cancer N Diabetes N Pulmonary (TB, Asthma) N Eczema Y Abuse/Domestic Violence N Depression/ depression Y Heart Disease N Pre-Eclampsia N Hypertension N Osteoporosis N Gynecological History Statement/Question Response Abnormal Pap [...] Code Diagnosis Note [id number] Clyde Lopez MD [facility] [address] [address] 12/21/2019 15:11:35 12/21/2019 16:17:05 Contraception care management [id number] Z30.9 Abnormal u terine bleeding 4886540620 9100 N93.9 this patient is a 39-year-ol [...] this week. Diverticul osis of sigmoid colon [id number] K57.30 This patient is a 39-year-ol d female with a recent episode of diverticul itis.This we agreed to obtain GI consult. [id number] [facility] [address] [address] 12/22/2019 10:16:55 12/31/2019 15:52:46 test negative 928491331 Z32.02 Insertion of intrauterine contraceptive device 36069945 Z30.430 She states the symptoms are unchanged. [...] She verbalized understand ing. RTO x 6wks [id number] [facility] [address] [address] 01/26/2020 11:53:20 01/26/2020 12:19:35 Intrauterine device check 071115001 Z30.431 Patient is here today for 4wk [...] counseling and review of plan of care. [id number] Vidhi Garza , [facility] [address] [address] 12/19/2020 14:43:42 12/19/2020 17:38:54 Gynecologic examination 68519631 Z01.419 Suggested Calcium with Vitamin D 1200-1500m g daily. Patient advised to get an annual flu shot in the fall and she could obtain at [facility] or [facility] clinic. Also to obtain TDap vaccinatio [...] concerns Happy with IUD. Screening mammography 24 [id number] Z12.31 [id number] Vidhi Garza , [facility] [address] [address] 08/14/2021 13:17:29 08/15/2021 09:14:30 Abnormal uterine bleeding [id number] 9100 N93.9 Today we agreed to update [...] this patient s visit, including available hand office support clerk upon arrive, temperatur e check and being asked a series of screening questions. All staff wore face coverings during this encounter, as well as provided additional cleaning and sanitizing of all surfaces, including countertop s, pens, chairs, door handles, light switches, etc, prior to and following the patient s visit. [id number] Clyde Lopez MD [facility] [address] [address] 08/31/2021 12:12:31 08/31/2021 12:57:05 Abnormal uterine bleeding [id number] 9100 N93.9 this patient is a 39-year-ol [...] follow-up for Mirena insertion later this week. [id number] JOYA Becerra-[facility] [address] [address] 09/08/2021 11:54:55 09/10/2021 10:29:48 Vaginitis [id number] N76.0 Treated for BV with extended BV/Yeast panels sent.Recom mend VCG's and possibly restarting Boric acid/addin g in Vaginal gel probiotic by Lady Elsie calle . Understand ing verbalized . Time spent in visit is a total of 24 mins with at least 50% of visit consisting of counseling and review of plan of care.Addit ional precaution flaco measures were taken to minimize potential exposure to the Covid-19 virus during this patient s visit, including available hand office support clerk upon arrive, temperatur e check and being asked a series of screening questions. All staff wore face coverings during this encounter, as well as provided additional cleaning and sanitizing of all surfaces, including countertop s, pens, chairs, door handles, light switches, etc, prior to and following the patient s visit. Abnormal u terine bleeding [id number] 9100 N93.9 Today we agreed to update [...] this patient s visit, including available hand office support clerk upon arrive, temperatur e check and being asked a series of screening questions. All staff wore face coverings during this encounter, as well as provided additional cleaning and sanitizing of all surfaces, including countertop s, pens, chairs, door handles, light switches, etc, prior to and following the patient s visit. [id number] Vidhi Garza , [facility] [address] [address] 01/15/2022 15:24:35 01/15/2022 16:50:21 Gynecologic examination [id number] Z01.419 Z11.51 Suggested Calcium with Vitamin D 1200-1500m g daily. Patient advised to get an annual flu shot in the fall and she could obtain at [facility] or [facility] clinic. Also to obtain TDap vaccinatio [...] (Has Celiac's)D exa Screen naRoutine Labs UTD Eddie Burrell Mirena IUD prevents for up to 7 years, and also helps with heavy periods for up to 5 years in women who choose an IUD for control. Vaginitis [id number] N76.0 [id number] Vidhi Garza [facility] [address],[place] [address] 08/12/2022 11:23:09 08/12/2022 12:10:15 Abnormal uterine bleeding [id number] 9100 N93.9 Today we will schedule to [...] counseling and review of plan of care. [id number] Clyde Lopez MD [facility] [address],[place] [address] 08/14/2022 10:57:43 08/14/2022 13:17:55 Abnormal uterine bleeding [id number] 9100 N93.9 [id number] Clyde Lopez MD [facility] [address],[place] [address] 10/08/2022 11:44:00 10/08/2022 12:32:49 Cyst of right ovary [id number] N83.291 [id number] Vidhi Garza [facility] [address],[place] [address] 01/29/2023 15:26:23 01/30/2023 10:34:44 Gynecologic examination 58110591 Z01.419 Z11.51 Suggested Calcium with Vitamin D 1200-1500m g daily. Patient advised to get an annual flu shot in the fall and she could obtain at [facility] or [facility] take care clinic. Also to obtain TDap vaccinatio n [...] ScreenRout ine LabsMammo ordered Screening mammography 24 [id number] Z12.31 [id number] Vidhi Garza , [facility] [address] [address] 2023 10:40:49 2023 11:35:16 Perimenopausal disorder [id number] N95.9 Today we discussed starting wtih Veozah [...] Lack or lo ss of sexual desire [id number] F52.0 Trial of testim Ulises cherry total testostero ne sentWill need 3mos f/u med checkWill re-evaluat e and decide if need to add or switch to addyi/Vyle oliver. Pain in pelvis 45972072 R10.2 US TVUS scheduledW Ill update and reach out to decide f/u. Patient is to contact office or go to nearest ED/Urgent care if fever >/= 100.1, pain, excessive bleeding, unusual drainage or swelling in area of concern; or experienci ng worsening sx's or new onset of concerning sx's. Understand ing verbalized . All questions answered to patient satisfacti on. [id number] Clyde Lopez MD [facility] [address],[place] [address] 10/13/2023 16:16:21 10/13/2023 17:18:44 Pain in pelvis 07517326 R10.2 [id number] Clyde Lopez MD [facility] [address],[place] [address] 10/24/2023 11:52:41 10/24/2023 15:17:12 Cyst of ovary 29278426 N83.209 43-year-ol d female with painful ovarian [...] We made a decision to perform surgery. [id number] Clyde Lopez MD [facility] [address],[facility] [place] [address] 11/21/2023 11:49:26 11/21/2023 12:45:19 Pain in pelvis 94233310 R10.2 Cyst of ovary 15697484 N 83.209 43-year-ol d female with painful [...] None Recorded Advance Directives Directive Y: Payers Insurance Date Sequence Insurance Name Policy Number Policy Jurado Covered Member ID Jurado Member ID Guarantor Name 08/13/2021 1 [facility] [id number] Herrera Chow [id number] Devi Jacek Chow 11/19/2023 2 [place] [facility] Devi Geraldo [id number] Devi Jacek Chow 11/25/2023 1 [facility] [id number] Herrera Chow [id number] Devi Jacek Chow Notes Date Note Type Note Provider Name [...] yearly pap smears; Needs to schedule mammogram JOYA Becerra-[facility] [address], [place], [address], [facility] 01/29/2023 18:45:40 4 text/html MenopauseReported bypatient.Onset/Timing [...] feeling of cramping but neg AUB) Vidhi Garza, [facility] [address], [place], [address], [facility] 2023 11:34:58 4 text/html 43-year-old female [...] surgery. Clyde Lopez MD [address], [place], [address], [facility] 10/24/2023 15:15:18 4 text/html 43-year-old female [...] infection. Clyde Lopez MD [address], [place], [address], [facility] 11/21/2023 12:43:15 OBGyn Episode Ob Episode Information Episode Created Date Number of Fetuses Patient Bloodtype Patient rh Status Prepregnancy Weight lbs Domestic Partner Domestic Partner Phone Father Name [employer] Sales Engineer Status 12/21/19 20 1 CLOSED Fetus Data [...] Domestic Partner Domestic Partner Phone Father Name [employer] Sales Engineer Status 12/21/19 20 1 CLOSED Fetus Data First Name Last Name Admitted to NICU Weight (g) Sex Living Outcome Pediatric Complications Fetus ID Race Codes Race Delivery Type 3231.84 3 F Full Term 1921 Primary Chaparro Calculation Initial Chaparro Date Initial [...] Domestic Partner Domestic Partner Phone Father Name [employer] Sales Engineer Status 12/21/19 20 1 CLOSED Fetus Data [...] Domestic Partner Domestic Partner Phone Father Name [employer] Sales Engineer Status 09/07/19 22 1 CLOSED Fetus Data First Name Last Name Admitted to NICU Weight (g) Sex Living Outcome Pediatric Complications Fetus ID Race Codes Race Delivery Type , Spontane ous [id number] Chaparro Calculation Initial Chaparro Date Initial Exam [...]
--- NOTE | 2025-02-04 14:35 | ECG_ITS ---
Test Date: 2025-02-04 15:08:27 Measurements Intervals [place] Rate: 95 P: 62 TX: 149 QRS: 29 QRSD: 65 T: 48 QT: 344 QTc: 433 Interpretive Statements SINUS RHYTHM LOW-VOLTAGE QRS BORDERLINE ECG No previous ECG available for comparison Electronically Signed On 02-05-2025 08:44:53 CDT by Jimenez Chowdary M.D.
--- OUTSIDE RECORDS SUMMARY | 2025-02-04 14:35 | XMS_ITS | Data Portability ---
Author Organization [place] - [facility] OFFICE Address [address] [place] [address] Care Team Providers Care Black Jack Dealer Name Role Phone VOLODYMYR MAS Primary Care Provider [phone] Assessment Encounter Date Assessment Date Assessment LastModified [...] Documentation reviewed and approved by supervising physician esto Not available 02/09/2023 02:09:26 Plan of Treatment Reminders Order Date Submit Date Provider Last Modified By Organization Details Last Modified Time Details Appointments None recorded. Lab None recorded. Referral None recorded. Procedures None recorded. Surgeries None recorded. Imaging None recorded. Medication Orders losartan 50 mg tablet 2022 023 ELENA Mendez [facility] [address] [facility], [place], [address], 14:17:49 Patient TargetsNo targets recorded. Patient Instructions Encounter Date Encounter Id Patient Instructions Last Modified By Organization Details Last Modified Time 04/23/2022 [id number] Exercise advised Low cholesterol diet advised Low sodium diet advised. matilde Not available 04/23/2022 15:45:40 07/30/2022 [id number] Weight loss 20 pounds Exercise advised Low cholesterol diet advised Low sodium diet advised. [email or web address] Not available 07/30/2022 14:58:04 01/28/2023 [id number] Exercise advised Low cholesterol diet advised Low sodium diet advised. eyassin Not available 01/28/2023 14:16:47 02/11/2023 [id number] Exercise advised Low cholesterol diet advised Low sodium diet advised. oalmousalli Not available 02/11/2023 09:57:16 05/06/2023 [id number] Exercise advised Low cholesterol diet advised Low sodium diet advised. oalmousalli Not available 05/06/2023 16:39:37 Reason for Referral None Reported. Results Created Date Observation Date Name Description Value Unit Range Abnormal Flag Note LastModifiedBy Organization Detail LastModifiedTime 03/26/2003/19/2022 elect rocar diogr am No observ ation [...] Name and Address Organization Details Recorded Time Ct, Abdomen + Pelvis, W/wo Contrast : CT abdomen and pelvis 03/11/23:moderate to large midline intraumbilical hernia contatining nonobstructed small bowel. Rudi hua, [facility] 05/18/2023 13:00:05 Cmp, Serum Or Plasma : 04/07/23:Na 139,K 4.4,CL 103,CO2 23,GLU 109,BUN 9,Cr 0.77,AST 19,ALT 23,TSH 0.903,FT4 1.04,,CK <1.0. Grijalva [place], [place] - [facility] 04/08/2023 14:30:26 Problems Name Problem SNOMED Code Status Onset Date Resolution Date Notes Provider Name and Address Organization Details Recorded Time Endoscopy of upper gastrointes tinal tract Active 2021 Apnormal Grijalva [place] - [facility] 2 16:54:03 Body mass index 30+ - obesity 114156692 Active 2021 Grijalva [place] - [facility] 2 16:54:12 Depressive disorder 57202200 Active 2021 Grijal[place] [facility] 2 16:54:20 Chronic back pain 790369492 Active 2021 Grijal[place] [facility] 2 15:17:56 Chronic headache disorder 846555063 Active 2021 Grijal[place] [facility] 2 15:18:29 Diverticuli tis 327315668 Active 2021 Grijalva [place] [facility] 3 02:03:29 Diverticulo sis of colon 150762472 Active 2021 Grijal[place] [facility] 2 16:55:20 Disorder of gallbladder 67497105 Active 2021 Grijalva [place] - [facility] 2 16:55:49 Gastroesoph ageal reflux disease 405168772 Active 2021 Girjalva [place] - [facility] 2 16:55:56 Hemorrhoids 27507067 Active 2021 Grijal[place] [facility] 2 16:56:09 Essential hypertensio n 20514758 Active 2021 Grijal[place] [facility] 2 16:56:19 Cyst of ovary 24000493 Active 2021 Grijal[place] [facility] 2 16:56:31 Seizure 61814947 Active 2021 Grijal[place] [facility] 2 16:56:39 Obstructive sleep apnea syndrome 15031165 Active 2021 Grijalva [place] [facility] 2 15:18:04 Dyslipidemi a 169401287 Active 2022 Grijalva [place] - [facility] 3 02:03:41 Iliac vein compression syndrome 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 Procedures Surgical History Date Name Laterality Status Provider Name and Address Organization Details Recorded Time [facility] [place] [facility] 03/15/2022 16:57:51 endoscopy completed Grijalva [facility] 03/15/2022 16:58:00 stripping of vein completed Grijalva [facility] [place] [facility] 03/15/2022 16:58:18 Appendectomy completed [facility] [place] - [facility] 03/15/2022 16:58:26 [facility] [place] [facility] 03/15/2022 16:58:57 section completed [facility] [place] - [facility] 03/15/2022 16:59:10 Imaging Results None recorded. Procedure Notes None recorded. Medical Equipment None Reported. Allergies Allergen ID Allergen Name Allergen Category Reaction Reaction Severity Criticality Documentation Date Start Date Code Code System Note Provider Name and Address Organization Details Recorded Time 13665 Product containin g penicilli n (product) medicatio n Not available Not available Not available 03/15/2022 27724 8001 SNOMED Grijalva [place] - [facility] 2 17:04:54 63201 shrimp allergeni c extract food Not available Not available Not available 03/15/2022 42128 2 RxNorm Grijalva [place] - [facility] 2 17:05:03 70758 wheat preparati on food,medi cation Not available Not available Not available 03/15/2022 64838 52 RxNorm Rudi [place] null, [place] - [facility] 2 17:05:11 25057 Iodinated contrast media (substanc e) medicatio n Not available Not available Not available 03/15/2022 69615 2004 SNOMED Rudi [place] - [facility] 2 17:05:46 43885 irbesarta n medicatio n Not available Not available Not available 03/15/2022 85671 RxNorm Rudi [place] - [facility] 2 17:05:58 Medications [...] in Arterial blood by Pulse oximetry Systolic And Diastolic Provider Name and Address Organization Details Last Updated DateTime 3 172.72 cm 32.4 kg/m2 67285.1 7 g 92 /min 16 /min 99 % 99 % 118/84 mm[Hg] Felipe Zamora [facility] 3 14:37:17 Date Recorded Body height Body mass index (BMI) Body weight Heart rate Oxygen saturation Oxygen saturation in Arterial blood by Pulse oximetry Systolic And Diastolic Provider Name and Address Organization Details Last Updated DateTime 3 172.72 cm 35.3 kg/m2 579347. 07 g 71 /min 91 % 91 % 120/80 mm[Hg] RONALD PRUITT [facility] 3 13:24:20 Date Recorded Body height Body mass index (BMI) Body weight Heart rate Respiratory rate Oxygen saturation Oxygen saturation in Arterial blood by Pulse oximetry Systolic And Diastolic Provider Name and Address Organization Details Last Updated DateTime 3 172.72 cm 35.4 kg/m2 263867. 02 g 102 /min 18 /min 97 % 97 % 128/84 mm[Hg] Felipe Zamora [facility] 3 09:39:19 Date Recorded Body height Body mass index (BMI) Body weight Oxygen saturation Oxygen saturation in Arterial blood by Pulse oximetry Heart rate Systolic And Diastolic Provider Name and Address Organization Details Last Updated DateTime 2 172.72 cm 33.8 kg/m2 014968. 51 g 96 % 96 % 81 /min 148/102 mm[Hg] RONALD PRUITT [facility] 2 15:08:57 Date Recorded Body height Body mass index (BMI) Body weight Heart rate Oxygen saturation Oxygen saturation in Arterial blood by Pulse oximetry Systolic And Diastolic Provider Name and Address Organization Details Last Updated DateTime 3 172.72 cm 35.7 kg/m2 616106. 21 g 97 /min 95 % 95 % 146/90 mm[Hg] Lela [facility] 3 16:16:04 Social History Question Answer Notes LastModified by [employer] Details LastModified Time Tobacco Smoking Status Current Every Day Smoker Rudi hua [facility] 03/15/2022 17:01:02 What Is Your Level Of Caffeine Consumption? Occasional Information not available 03/19/2022 What Type Of Diet Are You Following? REGULAR Information not available 03/19/2022 How Much Tobacco Do You Smoke? 1 PPD Information not available 03/15/2022 How Many Years Have You Smoked Tobacco? 7 Information not available 03/15/2022 Sex: Unknown Functional Status Question Answer Note LastModified by [employer] Details LastModified Time Do you use any illicit or recreational drugs? No Information not available 03/15/2022 What is your level of alcohol consumption? Occasional 1 DRINK PER WEEK Information not available 03/15/2022 What is your exercise level? Moderate Information [...] SNOMED-CT Code Diagnosis ICD10 Code Diagnosis Note [id number] Phani Vega MD [facility] [address] [place] [address] 03/19/2022 15:00:17 03/19/2022 16:01:07 Varicose veins of lower extremity 21355345 I83.891 Benign ess ential hypertension 7200158 I10 well controlled todayconti nue losartan 100 mg daily Iliac vein compression syndrome 976476572 I87.1 will do venous reflex ultrasound 40304 Phani Vega MD [facility] [address] [place] [address] 1 04/23/2022 14:30:53 04/23/2022 15:55:13 Varicose veins of lower extremity 28400728 I83.891 significan t reflex disease need venous angiogram Benign ess ential hypertension 6903511 I10 well controlled todayconti nue losartan 100 mg daily Iliac vein compression syndrome 883327908 I87.1 will do venous reflex ultrasound after stress echo Essential hypertension 33318354 I10 elevated today she need cpap Obstructiv e sleep apnea syndrome 92108729 G47.33 repeat study Dyspnea on exertion 6084 5006 R06.09 Treadmill Myoview Stress test, has high Bruno Risk score. Has Known CAD, or CAD risk equivalent . To look for any ischemia. Pre-surger y evaluation 137007222 Z01.818 Treadmill Myoview Stress test, has high Bruno Risk score. Has Known CAD, or CAD risk equivalent . To look for any ischemia. Dyslipidemia 464487185 E 78.5 LDL is at 119 she is not taking [id number] Phani Vega MD [facility] [address] [place] [address] 1 07/30/2022 14:25:03 07/30/2022 15:00:22 Varicose veins of lower extremity 09470939 I83.891 significan t reflex disease need venous angiogram Benign ess ential hypertension 9028090 I10 well controlled todayconti nue losartan 100 mg daily Iliac vein compression syndrome 277665535 I87.1 will do venous reflex ultrasound after stress echo Essential hypertension 20717527 I10 elevated today she need cpap Obstructiv e sleep apnea syndrome 70159564 G47.33 repeat study Dyspnea on exertion 6084 5006 R06.09 Treadmill Myoview Stress test, has high Bruno Risk score. Has Known CAD, or CAD risk equivalent . To look for any ischemia. Dyslipidemia 252731288 E 78.5 LDL is at 119 she is not taking meds 46485 Phani Vega MD [facility] OFF[facility] [place] [address] 01/28/2023 12:44:13 01/28/2023 14:18:38 Varicose veins of lower extremity 48405627 I83.891 resolved Benign ess ential hypertension 9354718 I10 high BP todayshe discontinu e losartan 100 mg daily as she thought her BP is well controllSh e is on amlodipin 5 mg dailyLosar flores 50 mg daily Iliac vein compression syndrome 714940309 I87.1 will do venous reflex ultrasound after stress echo Essential hypertension 78560515 I10 elevated today she need cpap Obstructiv e sleep apnea syndrome 27901544 G47.33 repeat study Dyspnea on exertion 6084 5006 R06.09 Treadmill Myoview Stress test, has high Bruno Risk score. Has Known CAD, or CAD risk equivalent . To look for any ischemia. Dyslipidemia 388936814 E 78.5 LDL is at 136 she is not taking meds 09/12 23398 Phani Vega MD [facility] [place] [address] 02/11/2023 09:33:56 02/11/2023 10:16:13 Varicose veins of lower extremity 47712453 I83.891 resolved Benign ess ential hypertension 6565931 I10 well controlled todayprevi ously she discontinu e losartan 100 mg daily as she thought her BP is well controllSh e is on amlodipin 5 mg daily and Losartan 50 mg daily Iliac vein compression syndrome 062384328 I87.1 well controlled and has no problem currently Essential hypertension 75870800 I10 well controlled today Obstructiv e sleep apnea syndrome 65005681 G47.33 repeat study Dyspnea on exertion 6084 5006 R06.09 Negative stress echo. Mild exercise impairment . Dyslipidemia 265261669 E 78.5 LDL is at 136 she is not taking meds repeat in 3 months Tachycardia 2437510 R00. 0 will consider adding metoprolol next visit if she still tachyproba diya tachy due to abdominal dis comfortabl e after her diverticul itis surgery , she is going for abdominal ultrasound tomorrow 95462 Phani Vega MD [facility] [place] [address] 05/06/2023 16:04:19 05/06/2023 16:48:03 Varicose veins of lower extremity 96173594 I83.891 resolved Benign ess ential hypertension 0981087 I10 well controlled todayprevi ously she discontinu e losartan 100 mg daily as she thought her BP is well controllSh e is on amlodipin 5 mg daily and Losartan 50 mg daily Iliac vein compression syndrome 264057587 I87.1 well controlled and has no problem currently Essential hypertension 88300778 I10 well controlled today Obstructiv e sleep apnea syndrome 98148500 G47.33 repeat study Dyspnea on exertion 6084 5006 R06.09 Negative stress echo. Mild exercise impairment . Dyslipidemia 722873914 E 78.5 LDL is at 136 she is not taking meds 09/12wi repeat in 3 months Tachycardia 1850102 R00. 0 will consider adding metoprolol next visit if she still tachyproba diya tachy due to abdominal dis comfortabl e after her diverticul itis surgery , she is going for abdominal ultrasound tomorrow Pulmonary embolism 15423 003 I26.99 On Eliquis 5 mg bidJay get her CT and Echo report from ErrolWi tuan need Follow up [facility] Health Concerns Section Related Observation LastModified by Organization Mabel ls LastModified Time None Recorded Concern Status LastModified by Organization Details LastModified Time None Recorded Advance Directives Directive None Recorded Payers Insurance Date Sequence Insurance Name Policy Number Policy Jurado Covered Member ID Jurado Member ID Guarantor Name 01/26/2025 1 [facility] [id number] Herrera Hernandez [id number] Devi Hernandez 05/03/2023 2 [place] [employer] Devi Hernandez [id number] Devi Hernandez Notes Date Note Type Note Provider Name [...] has had tow previous vein stripping surgeries 0611-3722.She can not bare aliza on her right [...] has had tow previous vein stripping surgeries 3063-6783. She can not bare aliza on her right leg for the last 8 months. She is been vaping for the last 3 months. hPani Vega MD [address] [place], [address], [facility] 07/30/2022 14:59:08 [...] has had tow previous vein stripping surgeries 8092-6886. She can not bare aliza on her right leg for the last 8 months. She is been vaping for the last 3 months. [facility] 01/28/2023 14:17:47 02/11/2023 text/html 02/11/23CC : Car diac follow up Sissy HERNANDEZ is a 42 [...] has had tow previous vein stripping surgeries 1056-2785. She can not bare aliza on her right leg for the last 8 months. She is been vaping for the last 3 months. Phani Vega MD [address] [place], [address], [facility] 02/11/2023 09:59:05 05/06/2023 text/html 05/06/23CC : Henrique nieves follow upDevi HERNANDEZ is a 42 years-old Female with h/o Hypertension, celiac disease , depression ,Obstructive sleep apnea and GERD, celiac , and diverticulitis is here for 3 month follow up. She was last seen in the clinic on 02/11/23, since then Edvin denies ER visits and hospitalizations since she was last seen. Today reports:pt previously had hernia surgery of 04/21/2023 [facility] - pt having chest pain but refuses ECG . after surgery at [facility] had PE. pt feels thats the reason [...] has had tow previous vein stripping surgeries 1950-5538. She can not bare aliza on her right leg for the last 8 months. She is been vaping for the last 3 months. Phani Vega MD [address] [place], [address], [place] - [facility] 05/06/2023 16:41:39 OBGyn Episode No OBEpisode recorded.
--- NOTE | 2025-02-04 17:01 | ED.GENADULT ---
HPI - General Adult General Chief complaint: Extremity Problem,Nontraumatic Stated complaint: pain in BUE Time Seen by Provider: 02/04/25 15:25 History of Present Illness HPI narrative: This is a 44-year-old female presenting with upper extremity pain. Patient says for last week she has had pain in her shoulders radiating 8 down the ulnar side of her arms. It is throbbing. Is worse with movement. She has taken Motrin with minimal relief. Patient has many issues with chronic pain. She does not have any weakness to any extremity. No trauma or injuries to the neck. No fevers. Related Data Home Medications ?Medication ?Instructions ?Recorded ?Confirmed ?Last Taken ?Type cetirizine 10 mg capsule (Zyrtec) 10 mg PO HS PRN Allergy Symptoms 07/10/22 10/22/24 Unknown History multivitamin 1 tablet PO DAILY 04/15/23 10/22/24 Unknown History acetaminophen 500 mg capsule 1,000 mg PO Q6H PRN 03/08/24 10/22/24 Unknown History Allergies Allergy/AdvReac Type Severity Reaction Status Date / Time wheat Allergy Severe Abdominal Verified 10/22/24 07:59 Pain iodine Allergy Intermediate sneezing, Verified 10/22/24 07:59 COUGH iohexol (From contrast - CT, Allergy Intermediate SNEEZING, Verified 10/22/24 07:59 X-RAY) COUGH Penicillins Allergy Intermediate Rash Verified 10/22/24 07:59 shrimp Allergy Intermediate Rash Verified 10/22/24 07:59 gluten Allergy Mild Abdominal Verified 10/22/24 07:59 Pain irbesartan AdvReac Intermediate hair loss Verified 10/22/24 07:59 PMFSH Past Medical History Medical History Intra-abdominal abscess Postoperative ileus History of diverticulitis Rectal Hemorrhage LUQ pain Degenerative joint disease of cervical and lumbar spine Panic attack Cerebral atrophy Hx pulmonary embolism Pulmonary embolism Incisional hernia Hyperlipidemia Anxiety Blood transfusion abn reaction or complication, no procedure mishap Abdominal pain BMI greater than 30 Numbness of face Left facial numbness Rash D-dimer, elevated Acute bacterial sinusitis Abnormal endoscopy of upper gastrointestinal tract Shrimp allergy Abnormal mammogram Depression Chronic back pain Arthritis Ovarian cyst Uterine fibroid Hemorrhoids Gallbladder disease Diverticulosis Diverticulitis Sleep apnea Hypertension Chronic headaches Seizures absent seizure Surgical History Surgical History H/O oophorectomy S/P laparoscopic-assisted sigmoidectomy H/O abdominal surgery History of hernia repair incisional hernia with defect measuring approximately 9 cm, lateralization of the rectus muscles on 04/21/23 PDC History of incisional hernia repair Hx of colectomy AMBER Sigmoid colectomy on 06/05/22 H/O endoscopy Previous section H/O dilation and curettage Hx of cholecystectomy History of appendectomy H/O vein stripping Family History Family History Father Heart disease Hypertension Diabetes mellitus Mother Diabetes mellitus Heart disease Sibling No problems noted. Grandparent Breast cancer Other Cancer Cerebrovascular accident Social History Social History Smoking packs per day: 1 Smoking cigarettes per day: 20.0 Years smoked: 3 Smoking pack-years: 3.00 Smoking status: Current some day smoker Tobacco type: e-cigarettes/vaping Second hand tobacco smoke exposure: Yes (SPOUSE) Additional smoking assessment comments: started vaping 2020 Alcohol intake: current Drinks per week: 1 Alcohol use details: OCAASIONALLY Substance use: never Substance use type: does not use Do You Feel Safe in your Home?: Yes Lack of Transportation: No Lack of Food: Never True Current Housing: I Have Housing Concerned About Future Housing: No Difficulty Paying Gas/Electric Bills: No Difficulty Paying for Meds: No Currently Unemployed: No Education: High School Diploma/GED Difficulty w/ Childcare or Family Care: No Living arrangements: with family Additional living arrangements comments: HUSB AND CHILDREN Occupation/Education: occupation 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 Head: atraumatic. EYES: EOMI, NOSE: Atraumatic NECK: Trachea midline, supple, no midline cervical tenderness RESPIRATORY: No increased rate of breathing CARDIOVASCULAR: RRR, ABDOMINAL: Non-distended MUSCULOSKELETAl: Focal exam of the upper extremities showed point tenderness over the trapezius bilaterally. Both arms are neurovascularly intact with full strength the muscle elbow wrist and with camp dining room attendant strength. Pulses are +2 bilaterally. Cap refills less than 2 seconds. No overlying skin changes. NEURO: Alert. Moving 4/4 extremities SKIN:: Warm, dry. Normal color PSYCHIATRIC: Normal affect Course Vital Signs Vital signs: Vital Signs Temperature 98.1 F 02/04/25 14:32 Pulse Rate 100 02/04/25 14:32 Respiratory Rate 18 02/04/25 14:32 Blood Pressure 160/94 H 02/04/25 14:32 Pulse Oximetry 100 02/04/25 14:32 Oxygen Delivery Room Air 02/04/25 14:32 Temperature 98.1 F 02/04/25 14:32 Pulse Rate 100 02/04/25 14:32 Respiratory Rate 18 02/04/25 14:32 Blood Pressure 160/94 H 02/04/25 14:32 Pulse Oximetry 100 02/04/25 14:32 Oxygen Delivery Room Air 02/04/25 14:32 Medical Decision Making MDM Narrative Medical decision making narrative: -Course: This 44-year-old female presenting with bilateral arm pain, L worse than R. Patient has tenderness over the bilateral trapezius. Pain is in a radicular distribution. No weakness. No fevers or trauma. Patient will be treated with Toradol and muscle relaxers. She is primary care follow-up early next week. Discharged with return precautions. -DDX includes but is not limited to: Cervical radiculopathy, radicular pain, regional pain syndrome, muscle strain Vital Signs Vital Signs: Vital Signs Temperature 98.1 F 02/04/25 14:32 Pulse Rate 100 02/04/25 14:32 Respiratory Rate 02/04/25 14:32 Blood Pressure 160/94 H 02/04/25 14:32 Pulse Oximetry 100 02/04/25 14:32 Oxygen Delivery Room Air 02/04/25 14:32 Temperature 98.1 F 02/04/25 14:32 Pulse Rate 100 02/04/25 14:32 Respiratory Rate 18 02/04/25 14:32 Blood Pressure 160/94 H 02/04/25 14:32 Pulse Oximetry 100 02/04/25 14:32 Oxygen Delivery Room Air 02/04/25 14:32 Discharge Plan Discharge Clinical Impression: Bilateral radicular pain Patient Disposition: Home Condition: Stable Instructions: Antibiotic Form, Cervical Radiculopathy (ED) Additional Instructions: Please take Tylenol Motrin and Robaxin for your pain. Please follow-up with your primary care physician early next week. Develops severe pain fevers or weakness to any extremity please return to the ED for re-evaluation. Patient Language: Divehi Prescriptions: New acetaminophen 500 mg tablet 1,000 mg PO TID PRN (Reason: irene) 7 Days Qty: 42 0RF ibuprofen 800 mg tablet 800 mg PO TID PRN (Reason: pain) 7 Days Qty: 21 0RF methocarbamol 750 mg tablet 1,500 mg PO TID Qty: 42 0RF No Action acetaminophen 500 mg capsule 1,000 mg PO Q6H PRN pantoprazole 40 mg tablet,delayed release (DR/EC) 40 mg PO BID 30 Days Qty: 60 3RF duloxetine 60 mg capsule,delayed release(DR/EC) 60 mg PO DAILY Qty: 90 2RF meclizine 12.5 mg tablet 12.5 mg PO BID PRN (Reason: dizziness) Qty: 30 0RF Zyrtec 10 mg capsule 10 mg PO HS PRN (Reason: Allergy Symptoms) multivitamin Tablet 1 tablet PO DAILY cholecalciferol (vitamin D3) 1,250 mcg (50,000 unit) capsule 1,250 mcg PO WEEKLY Qty: 8 0RF cholecalciferol (vitamin D3) 1,250 mcg (50,000 unit) capsule 1,250 mcg PO WEEKLY Qty: 8 0RF amlodipine [Norvasc] 5 mg tablet 5 mg PO DAILY Qty: 90 2RF Follow-up/Referrals: Diomedes Seals MD [Primary Care Provider] - 1 Week (Radicular pain )
[2025-02-04] MEDS: KETOROLAC 30 MG/ML VIAL (*BKC) IM (17:16)
[2025-02-04] MEDS: oxyCODONE HCL (*CRX) 5 MG TAB IR PO (17:16)
[2025-02-04 17:26] VITALS: BP 152/84; PULSE 88; RESP 16; TEMP 36.7; O2SAT 100
--- OUTSIDE RECORDS SUMMARY | 2025-02-04 18:25 | XMS_ITS | Clinical Summary ---
Author Organization [facility] Address [address] [place] [address] Care Team Providers Care Dean For Student Affairs Name Role Phone Diomedes Seals MD Primary Care Provider [phone] Allergies Active Allergy Reactions Criticality Noted Date [...] dispo -12/[address] scan with PA contrast 12/16 Starting clear liquids but continuing [...] at OSH on 12/04 -Transfer to [facility] for higher level of care with prior EGS admission 12/09-12/18 Pathology OSH 11/25 -Benign hypervascular ovarian cyst with adhesions Assessment & Plan (12/12/2023 12:17 PM CDT): -OSH OR 11/25, initially planned for elective surgery; c/b intraabdominal hemorrhage, OSH General Surgery c/s intra-op > Op notes obtained and uploaded in Media -Post op course c/b abscess c/f ECF -Transfer to [facility] for higher level of care [...] 9:47 AM CDT): Relevant surgical history: (all [facility]) 06/05/22: lap sigmoidectomy 04/21/23: open VHR [...] 1:41 PM CDT): Relevant surgical history: (all [facility]) 06/05/22: lap sigmoidectomy 04/21/23: open VHR with [...] IV cefe/flagyl, CT AP with IV and PA contrast to rule out missed colon injury, LEDs and lower extremity arterial doppler 12/11 LE US studies unrevealing. CT A/P with PA contrast pending. No nausea, continue IV antibiotics. [...] She would like to follow with [facility] IR and General surgery. IR [...] and IR follow up on 12/31. [facility] Imagin/23 LE Arterial Dopplers - [...] Complete spontaneous w/o complication;Recorded Elsewhere: No Location: [facility] Source: EHR Chronic: N Practice ID: [id number] Billable Time: 04:30:00 PM Pelvic and perineal pain 01/12/2018 Overview (09/30/2024): Pelvic pain;Recorded Elsewhere: No Location: [facility] Source: EHR Chronic: N Practice ID: [id number] Billable Time: 11:00:00 AM Acute vaginitis 01/01/2016 Overview (09/30/2024): Acute vulvovaginitis;Recorded Elsewhere: No Location: [facility] Source: EHR Chronic: N Practice ID: [id number] Billable Time: 11:30:00 AM Female genital symptoms 11/02/2013 Overview (09/30/2024): Unspecified symptom associated with female genital organs;Recorded Elsewhere: No Location: [facility] Source: EHR Chronic: N Practice ID: [id number] Billable Time: 08:30:00 AM Headache 11/02/2013 Overview (09/30/2024): Headache;Recorded Elsewhere: No Location: [facility] Source: EHR Chronic: N Practice ID: [id number] Billable Time: 08:30:00 AM Hematochezia 11/02/2013 Overview (09/30/2024): Blood in stool;Recorded Elsewhere: No Location: [facility] Source: EHR Chronic: N Practice ID: [id number] Billable Time: 08:30:00 AM Sleep apnea 06/17/2012 Nontoxic single thyroid nodule 06/17/2012 Hirsutism 06/17/2012 Abdominal pain 12/17/2011 Overview (09/30/2024): Abdominal pain, other specified site;Recorded Elsewhere: No Location: [facility] Source: EHR Chronic: N Practice ID: [id number] Billable Time: 03:00:00 PM Goiter 09/11/2011 Overview (09/30/2024): Goiter, unspecified;Recorded Elsewhere: No Location: [facility] Source: EHR Chronic: N Practice ID: [id number] Billable Time: 09:15:00 AM Increased frequency of urination 09/11/2011 Overview (09/30/2024): Urinary frequency;Recorded Elsewhere: No Location: [facility] Source: EHR Chronic: N Practice ID: [id number] [...] updated 12/12/23) Primary Care Provider: Rossana Ireland, ENTRY WRITER Placement or Home Health Company: N/A Current [...] Department Care Team Description 01/28/2025 Orders Only [facility] [address] [place] [address] Dorie Jordan Rai, NP Cyst of right ovary (Primary Dx) 01/25/2025 11:00 AM CDT Office Visit [facility] [address] [place] [address] [address]th [place] [address] [place] [address] Attila Foster MD Infected hernioplasty mesh, subsequent encounter (Primary Dx) 01/25/2025 9:26 AM CDT - 01/25/2025 11:59 PM CDT Hospital Encounter [facility] [address] [place] [address] Infected hernioplasty mesh, initial encounter Discharge Disposition: Discharge to home or self care 12/07/2024 10:30 AM CDT Office Visit [facility] [address] [place] [address] [address]th [place] [address] [place] [address] Attila Foster MD Infected hernioplasty mesh, initial encounter (Primary Dx); Open wound anterior abdominal wall, subsequent encounter; Encounter for smoking cessation counseling 11/05/2024 10:30 AM CDT Office Visit [facility] [address] [place] [address] [address]th [place] [address] [place] [address] Attila Foster MD Infected hernioplasty mesh, initial [...] doctor or pharmacy Never 12/21/2023 [facility] Utilities Answer Date Recorded In the past 12 months has th e [employer], gas, oil, or water [employer] threatened to shut off services in your [...] often do you attend chur ch or rastafari services? Never 12/26/2023 Do you belong to any clubs o r organizations such as sabianism groups, unions, fraternal or athletic groups, or [...] Date Recorded PHQ-2 Total Score 1 12/26/2023 [facility] - Occupational Stress [...] any time in the past 12 m [facility], were you homeless or living in a senior living (including now)? No 12/26/2023 Personal Safety Answer Date Recorded Have you ever been in or are you currently in a harmful physical or emotional relationship or is someone making you feel afraid or unsafe? 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 Gender Identity Female 12/22/2023 9:56 AM CDT [...] nal Result from Last 3 Months Insurance [facility] Member Subscriber Plan / Payer (Ef fective 2021-Present) Name:Devi Hernandez Member ID:[id number] Relation to Subscriber:Spouse Name:MARLON HERNANDEZ Subscriber ID:[id number] Date of :1974 (Home) Address: [address] [place] [address] Payer ID:[id number] (NAIC) Type:[facility]/PPO Address: [address] [facility] Member Subscriber Plan / Payer (Ef fective 2021-Present) Name:Devi Hernandez Member ID:[id number] Relation to Subscriber:Spouse Name:MARLON HERNANDEZ Subscriber ID:[id number] Date of :1975 (Home) Address: [address] [place], [place] [address] Payer ID:[id number] (NAIC) Type:[facility]/PPO Address: [address] [facility] [place] [place] [address] Advance Directives For more information, please contact: [phone] * Full Code (Latest Code Status on [...] 9:24 PM 12/19/2023 10:20 PM Care Teams Dean For Student Affairs Relationship Specialty Start Date End Date Diomedes Seals MD [address] [place] [place] [address] PCP - General Family Medicine 12/28/23
--- OUTSIDE RECORDS SUMMARY | 2025-02-04 18:25 | XMS_ITS | Clinical Summary ---
Author Organization [facility] Address [address] [place] [address] Care Team Providers Care Veneer Sander Name Role Phone Diomedes Seals MD Primary Care Provider [phone] [facility],non-owned Affiliates and Associated Physician Practices is amultiple site organization consisting of ambulatory clinics and hospital sitesin [place], [place], [place] and [place]. This disclosure is being madepursuant to the Care Everywhere program and may not contain all information available regarding this patient. Last updated 18.[facility] Allergies Active Allergy Reactions Criticality Noted Date [...] on file Legal Sex Female 6:54 PM CANE BURNER Gender Identity Not on file Sexual Orientation [...] Comments LIPID PROFILE Routine 09/18/2011 8:02 AM CANE BURNER from Last 3 Months or Most Recently Relevant to Health Maintenance Results * (ABNORMAL) LIPID PROFILE (09/18/2011 8:02 AM CANE BURNER) Cholesterol Total 176 125 - 200 mg/dL [facility] Comment: Test Performed at: [facility] [address] [place] [address] BINA LEVINE DO HDL 32(L) > OR [...] Venous blood specimen (specimen) 09/18/2011 8:02 AM CANE BURNER 09/18/2011 8:03 AM CANE BURNER Joe Gonzalez MD LAB - CHEMISTRY ORDERABLES Fin al Result [facility] [id number] from Last 3 Months or Most Recently Relevant to Health Maintenance Insurance MEDICAID - OUT OF STATE [facility] MEDICAID - [place] [facility] * Guarantor: MALISSA HERNANDEZI Account Type Relation to Patient Date of Phone Billing Address Personal/Family [address] [place] [address] SELF PAY NO INSURANCE Member Subscriber Plan / Payer (Ef fective for All Dates) Name:Alis Hernandez Member ID:Not on file Relation to Subscriber:Not on file Name:MALISSA HERNANDEZI Subscriber ID:Not on file Address: [address] [place] [address] Payer ID:Not on file Group ID:Not on file Type:Self Pay Address: [facility] * Guarantor: ALIS HERNANDEZ Account Type Relation to Patient Date of Phone Billing Address Personal/Family [address] [place], [place] [id number] SELF PAY NO INSURANCE Member Subscriber Plan / Payer (Ef fective for All Dates) Name:Alis Hernandez T Member ID:Not on file Relation to Subscriber:Not on file Name:ALIS HERNANDEZ Subscriber ID:Not on file Address: [address] [place] [address] Payer ID:Not on file Group ID:Not on file Type:Self Pay Address: [facility] * Guarantor: ALIS HERNANDEZ Account Type Relation to Patient Date of Phone Billing Address Personal/Family [address] [place] [address] SELF PAY NO INSURANCE Member Subscriber Plan / Payer (Ef fective for All Dates) Name:Alis Hernandez T Member ID:Not on file Relation to Subscriber:Not on file Name:ALIS HERNANDEZ Subscriber ID:Not on file Address: [address] [place], [place] [id number] Payer ID:Not on file Group ID:Not on file Type:Self Pay Address: [facility] Care Teams Veneer Sander Relationship Specialty Start Date End Date Diomedes Seals MD [address] [place] [address] PCP - General 06/20/22
--- OUTSIDE RECORDS SUMMARY | 2025-02-04 18:25 | XMS_ITS | Continuity of Care Document ---
Author Organization [facility] Address [address] [facility] [place] [address] Phone Care Team Providers Care Carbon Furnace Operator Name Role Phone Hema Arreola MD [...] Copied on Encounter [facility], [address] [place], [place], [id number], [place] tel:[phone] [facility] No Information 0 Maxwell Garrido. [address], [place], [place], [address] , [place]. tel:[phone] OFFICE/OUTPA TIENT VISIT, EST [facility], [address], [place], [place], [address], [place] tel:[phone] [facility] HTN (chief complaint) hyponatrem ia (chief complaint) anxiety1 (chief complaint) sinus (chief complaint) sleep apnea1 (chief complaint) Sleep apneaEssential (primary) hypertensionHyponat remiaAbnormality of plasma proteinGeneralized Anxiety Disorder 0 Maxwell Garrido. [address], [place], [place], [address] , [place]. tel:[phone] [facility], [address], [place], [place], [address], [place] tel:[phone] [facility] protein1 (chief complaint) hyponatrem ia1 (chief complaint) HTN (chief complaint) anxiety1 (chief complaint) sinus1 (chief complaint) Sleep apneaEssential (primary) hypertensionHyponat remiaAbnormality of plasma protein 0 0 Maxwell Garrido. [address], [place], [place], [address] , [place]. tel:[phone] Referring Provider: Hema Arreola, [address], [place], [place], [address]. tel:[phone] PREV VISIT, EST, AGE 18-39 [facility], [address], [place], [place], [address], [place] tel:[phone] [facility] physical (chief complaint) Encntr for general adult medical exam w/o abnormal findings 0 Maxwell Garrido. [address], [place], [place], [address] , [place]. tel:[phone] Referring Provider: Hema Arreola [address], [place], [place], [address]. tel:[phone] OFFICE/OUTPA TIENT VISIT, EST [facility], [address], [place], [place], [address], [place] tel:[phone] [facility] HTN (chief complaint) sleep apnea1 (chief complaint) seizure1 (chief complaint) Body mass index (BMI) 38.0-38.9, adultSleep apneaEssential (primary) hypertensionEpileps yVentral hernia [address], [place], [place], [address] , . tel:[phone] Referring Provider: [address], [place], [place], [address]. tel:[phone] PREV VISIT, NEW, AGE 18-39 [facility], [address], [place], [place], [address], [place] tel:[phone] [facility] Physical (chief complaint) Encntr for general adult medical exam w/o abnormal findings 9 Maxwell Garrido. [address], [address], [place], [place], [address] , [place]. tel:[phone] Referring Provider: [address] [facility] [address], [place], [place], [address]. 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 Related to Encntr for general adult medical exam w/o abnormal findings Increase activity. Related to En cntr for general adult medical exam w/o abnormal findings Assessments Type Assessment Date No Information
--- OUTSIDE RECORDS SUMMARY | 2025-02-04 18:25 | XMS_ITS | Referral Summary ---
Author Organization [facility] at the [facility] Office Center Address [address] [place] [address] Care Team Providers Care Academic Guidance Specialist Name Role Phone Diomedes Seals MD Primary Care Provider Encounters Date Type Department Care Team Description 01/28/2025 Orders Only [facility] Obstetrics and Gynecology [facility] 7th Floor [address] [place] [address] Dorie Jordan Rai, NP Cyst of right ovary (Primary Dx) 01/25/2025 11:00 AM CDT Office Visit [facility] Department of Surgery [address] [place] [address] [address]th [place] [address] [place] [address] Attila Foster MD Infected hernioplasty mesh, subsequent encounter (Primary Dx) 01/25/2025 9:26 AM CDT - 01/25/2025 11:59 PM CDT Hospital Encounter [facility] [address] [place] [address] Infected hernioplasty mesh, initial encounter Discharge Disposition: Discharge to home or self care 12/07/2024 10:30 AM CDT Office Visit [facility] Department of Surgery [facility] 12th [place] [address] [place] [address] Attila Foster MD Infected hernioplasty mesh, initial encounter (Primary Dx); Open wound anterior abdominal wall, subsequent encounter; Encounter for smoking cessation counseling 11/05/2024 10:30 AM CDT Office Visit [facility] Department of Surgery [address] [facility] [address]th [place] [address] [place] [id number] Attila Foster MD Infected hernioplasty mesh, initial [...] dispo -12/[address] scan with MT contrast 12/16 Starting clear liquids but continuing [...] identified at OSH on 12/04 -Transfer to [facility] for higher level of care with prior EGS admission 12/09-12/18 Pathology OSH 11/25 -Benign hypervascular ovarian cyst with adhesions Assessment & Plan (12/12/2023 12:17 PM CDT): -OSH OR 11/25, initially planned for elective surgery; c/b intraabdominal hemorrhage, OSH General Surgery c/s intra-op > Op notes obtained and uploaded in Media -Post op course c/b abscess c/f ECF -Transfer to [facility] for higher level of care - SEE [...] 1:41 PM CDT): Relevant surgical history: (all [facility]) 06/05/22: lap sigmoidectomy 04/21/23: open VHR with [...] IV cefe/flagyl, CT AP with IV and MT contrast to rule out missed colon injury, LEDs and lower extremity arterial doppler 12/11 LE US studies unrevealing. CT A/P with MT contrast pending. No nausea, continue IV antibiotics. [...] check. She would like to follow with [facility] IR and General surgery. IR drain yellow [...] EGS and IR follow up on 12/31. [facility] Imagin/23 LE Arterial Dopplers - bilateral lower [...] Complete spontaneous w/o complication;Recorded Elsewhere: No Location: [facility] Source: EHR Chronic: N Practice ID: [id number] Billable Time: 04:30:00 PM Pelvic and perineal pain 01/12/2018 Overview (09/30/2024): Pelvic pain;Recorded Elsewhere: No Location: [facility] Source: EHR Chronic: N Practice ID: [id number] Billable Time: 11:00:00 AM Acute vaginitis 01/01/2016 Overview (09/30/2024): Acute vulvovaginitis;Recorded Elsewhere: No Location: [facility] Source: EHR Chronic: N Practice ID: [id number] Billable Time: 11:30:00 AM Female genital symptoms 11/02/2013 Overview (09/30/2024): Unspecified symptom associated with female genital organs;Recorded Elsewhere: No Location: [facility] Source: EHR Chronic: N Practice ID: [id number] Billable Time: 08:30:00 AM Headache 11/02/2013 Overview (09/30/2024): Headache;Recorded Elsewhere: No Location: [facility] Source: EHR Chronic: N Practice ID: [id number] Billable Time: 08:30:00 AM Hematochezia 11/02/2013 Overview (09/30/2024): Blood in stool;Recorded Elsewhere: No Location: [facility] Source: EHR Chronic: N Practice ID: [id number] Billable Time: 08:30:00 AM Sleep apnea 06/17/2012 Nontoxic single thyroid nodule 06/17/2012 Hirsutism 06/17/2012 Abdominal pain 12/17/2011 Overview (09/30/2024): Abdominal pain, other specified site;Recorded Elsewhere: No Location: [facility] Source: EHR Chronic: N Practice ID: [id number] Billable Time: 03:00:00 PM Goiter 09/11/2011 Overview (09/30/2024): Goiter, unspecified;Recorded Elsewhere: No Location: [facility] Source: EHR Chronic: N Practice ID: [id number] Billable Time: 09:15:00 AM Increased frequency of urination 09/11/2011 Overview (09/30/2024): Urinary frequency;Recorded Elsewhere: No Location: [facility] Source: EHR Chronic: N Practice ID: [id number] [...] updated 12/12/23) Primary Care Provider: Rossana Ireland, SPECIAL POLICE Placement or Home Health Company: N/A Current [...] materials from doctor or pharmacy Never 12/21/2023 [facility] Utilities Answer Date Recorded In the past 12 months has e [employer], oil, or water [employer] threatened to shut off services in your [...] often do you attend chur ch or spiritism services? Never 12/26/2023 Do you belong to any clubs o r organizations such as alevism groups, unions, fraternal or athletic groups, or [...] Date Recorded PHQ-2 Total Score 1 12/26/2023 [facility] Occup[facility] ional Health - [...] any time in the past [address] [facility], were you homeless or living in a jail (including now)? No 12/26/2023 Personal Safety Answer Date Recorded Have you ever been in or are you currently in a harmful physical or emotional relationship or is someone making you feel afraid or unsafe? Denies 10/06/2024 Comments No Sex and Gender Information Value Date Recorded Sex Assigned at Not on file Legal Sex Female 12:43 AM GENERAL INTERNIST Gender Identity Female 12/22/2023 9:56 AM CDT [...] nal Result from Last 3 Months Insurance [facility] CHOICE PLUS IDPA [facility] CHOICE PLUS NHPA [facility] Advance Directives For more information, please contact: [phone] * Full Code (Latest Code Status on [...] 9:24 PM 12/19/2023 10:20 PM Care Teams Academic Guidance Specialist Relationship Specialty Start Date End Date Diomedes Seals MD [address] [address] PCP - General Family Medicine 12/28/23
== END 2025-02-04 18:32 | disposition home or self-care (01) ==
LOC: ANHED 18:24
PROVIDERS: Emergency Provider Emergency Medicine; PCP Family Medicine
DX: M54.12 Radiculopathy, cervical region (principal); E78.5 Hyperlipidemia, unspecified; G47.30 Sleep apnea, unspecified; M19.90 Unspecified osteoarthritis, unspecified site; M47.812 Spondylosis without myelopathy or radiculopathy, cervical region; M47.816 Spondylosis without myelopathy or radiculopathy, lumbar region; F41.9 Anxiety disorder, unspecified; F32.A Depression, unspecified; F17.290 Nicotine dependence, other tobacco product, uncomplicated; Z86.711 Personal history of pulmonary embolism; Z90.49 Acquired absence of other specified parts of digestive tract; Z79.899 Other long term (current) drug therapy
CPT/HCPCS: 93005; 96372; 99283; A9270; J1885

== ENCOUNTER 2025-02-07 09:26 | Outpatient (CLI) | payer OTHER, SELFPAY ==
--- NOTE | ~2025-02-07 | XR_ITS ---
EXAM/ PROCEDURE: [id number]_[id number]_CR - 02/07/2025 9:45 CDT HISTORY: 44 years old Female with M54.2 - Cervicalgia COMPARISON: None available TECHNIQUE: Three view(s) FINDINGS/ IMPRESSION: There are no fractures or dislocations.Intervertebral disc spaces are within normal limits. Visualize d portion of lungs are clear. Reviewed, dictated and finalized at location A.
--- OUTSIDE RECORDS SUMMARY | 2025-02-07 09:34 | XMS_ITS | Clinical Summary ---
Author Organization [facility] at [facility] Address [address] [place] [address] Care Team Providers Care Tour Bus Driver Name Role Phone Diomedes Seals MD Primary Care Provider + [phone] Allergies Active Allergy Reactions Criticality Noted Date [...] 60 tablet 1 5 02/06/20 25 Active Problems Problem Noted Date Diagnosed Date [...] dispo -12/[address] scan with HI contrast 12/16 Starting clear liquids but continuing [...] identified at OSH on 12/04 -Transfer to [facility] for higher level of care with prior EGS admission 12/09-12/18 Pathology OSH 11/25 -Benign hypervascular ovarian cyst with adhesions Assessment & Plan (12/12/2023 12:17 PM CDT): -OSH OR 11/25, initially planned for elective surgery; c/b intraabdominal hemorrhage, OSH General Surgery c/s intra-op > Op notes obtained and uploaded in Media -Post op course c/b abscess c/f ECF -Transfer to [facility] for higher level of care - [...] 9:47 AM CDT): Relevant surgical history: (all [facility]) 06/05/22: lap sigmoidectomy 04/21/23: open VHR with [...] 1:41 PM CDT): Relevant surgical history: (all [facility]) 06/05/22: lap sigmoidectomy 04/21/23: open VHR with [...] IV cefe/flagyl, CT AP with IV and HI contrast to rule out missed colon injury, LEDs and lower extremity arterial doppler 12/11 LE US studies unrevealing. CT A/P with HI contrast pending. No nausea, continue IV antibiotics. [...] check. She would like to follow with [facility] IR and General surgery. IR drain [...] EGS and IR follow up on 12/31. [facility] Imagin/23 LE Arterial Dopplers - bilateral [...] Complete spontaneous w/o complication;Recorded Elsewhere: No Location: [facility] Source: EHR Chronic: N Practice ID: [id number] Billable Time: 04:30:00 PM Pelvic and perineal pain 01/12/2018 Overview (09/30/2024): Pelvic pain;Recorded Elsewhere: No Location: [facility] Source: EHR Chronic: N Practice ID: [id number] Billable Time: 11:00:00 AM Acute vaginitis 01/01/2016 Overview (09/30/2024): Acute vulvovaginitis;Recorded Elsewhere: No Location: [facility] Source: EHR Chronic: N Practice ID: [id number] Billable Time: 11:30:00 AM Female genital symptoms 11/02/2013 Overview (09/30/2024): Unspecified symptom associated with female genital organs;Recorded Elsewhere: No Location: [facility] Source: EHR Chronic: N Practice ID: [id number] Billable Time: 08:30:00 AM Headache 11/02/2013 Overview (09/30/2024): Headache;Recorded Elsewhere: No Location: [facility] Source: EHR Chronic: N Practice ID: [id number] Billable Time: 08:30:00 AM Hematochezia 11/02/2013 Overview (09/30/2024): Blood in stool;Recorded Elsewhere: No Location: [facility] Source: EHR Chronic: N Practice ID: [id number] Billable Time: 08:30:00 AM Sleep apnea 06/17/2012 Nontoxic single thyroid nodule 06/17/2012 Hirsutism 06/17/2012 Abdominal pain 12/17/2011 Overview (09/30/2024): Abdominal pain, other specified site;Recorded Elsewhere: No Location: [facility] Source: EHR Chronic: N Practice ID: [id number] Billable Time: 03:00:00 PM Goiter 09/11/2011 Overview (09/30/2024): Goiter, unspecified;Recorded Elsewhere: No Location: [facility] Source: EHR Chronic: N Practice ID: [id number] Billable Time: 09:15:00 AM Increased frequency of urination 09/11/2011 Overview (09/30/2024): Urinary frequency;Recorded Elsewhere: No Location: [facility] Source: EHR Chronic: N Practice ID: [id number] [...] updated 12/12/23) Primary Care Provider: Rossana Ireland, CRISTINA Placement or Home Health Company: N/A Current [...] Department Care Team Description 01/28/2025 Orders Only [facility] Obstetrics and Gynecology [address] [facility] 7th [address] [place] [address] Dorie Jordan Rai, NP Cyst of right ovary (Primary Dx) 01/25/2025 11:00 AM CDT Office Visit [facility] Department of Surgery [address] [facility] 12th [place] [address] [place] [address] Attila Foster MD Infected hernioplasty mesh, subsequent encounter (Primary Dx) 01/25/2025 9:26 AM CDT - 01/25/2025 11:59 PM CDT Hospital Encounter [facility]) [address] [place] [address] Infected hernioplasty mesh, initial encounter Discharge Disposition: Discharge to home or self care 12/07/2024 10:30 AM CDT Office Visit [facility] Department of Surgery [address] [place] [address] [address] [place] [address] [place] [address] Attila Foster MD Infected hernioplasty mesh, initial encounter (Primary Dx); Open wound anterior abdominal wall, subsequent encounter; Encounter for smoking cessation counseling from Last 3 Months Immunizations Immunization Administration Dates Next Due Influenza, Trivalent, IM ([place]) 06/12/2012 Surgical History Surgery Date Site/Laterality Comments [...] materials from doctor or pharmacy Never 12/21/2023 [facility] Utilities Answer Date Recorded In the past 12 months has e [employer], [employer], or water [employer] threatened to shut off services in your [...] often do you attend chur ch or scientology services? Never 12/26/2023 Do you belong to any clubs o r organizations such as religion groups, unions, fraternal or athletic groups, or [...] Date Recorded PHQ-2 Total Score 1 12/26/2023 [facility] of Occupat ional Health - Occupational Stress [...] any time in the past 12 m [facility], were you homeless or living in a snf (including now)? No 12/26/2023 Personal Safety Answer Date Recorded Have you ever been in or are you currently in a harmful physical or emotional relationship or is someone making you feel afraid or unsafe? Denies 10/06/2024 Comments No Sex and Gender Information Value Date Recorded Sex Assigned at Not on file Legal Sex Female 12:43 AM COFOUNDER Gender Identity Female 12/22/2023 9:56 AM CDT [...] 5 oz) F C-Sec tion Living Complications:None 2008 Term 40w 0d 3.232 kg (7 lb [...] from Last 3 Months Insurance [facility] CHOICE PLUS [facility] HMO/PPO Address: [facility] [address] [place] [address] IDPA [facility] CHOICE PLUS [facility] HMO/PPO Address: [address] [address] [place] [address] IDPA R [facility] HMO/PPO Address: [address] [address] [place] [address] [facility] HMO/PPO Address: [address] [address] [place] [address] [facility] H[facility]/PPO Address: [address] [address] [place] [address] Advance Directives For more information, please contact: [phone] * Full Code (Latest Code Status on [...] 9:24 PM 12/19/2023 10:20 PM Care Teams Tour Bus Driver Relationship Specialty Start Date End Date Diomedes Seals MD [address] [place] [address] PCP - General Family Medicine 12/28/23
--- OUTSIDE RECORDS SUMMARY | 2025-02-07 09:35 | XMS_ITS | Referral Summary ---
Author Organization [facility] at the [facility] Office Center Address [address] [place] [address] Care Team Providers Care Poultry Scientist Name Role Phone Diomedes Seals MD Primary Care Provider [phone] Encounters Date Type Department Care Team Description 01/28/2025 Orders Only [facility] Obstetrics and Gynecology [facility] 7th Floor [address] [place] [address] Dorie Jordan Rai, NP Cyst of right ovary (Primary Dx) 01/25/2025 11:00 AM CDT Office Visit [facility] Department of Surgery [address] [place] [address] [facility] 12th [place] [address] [place] [address] Attila Foster MD Infected hernioplasty mesh, subsequent encounter (Primary Dx) 01/25/2025 9:26 AM CDT - 01/25/2025 11:59 PM CDT Hospital Encounter [facility] [address] [place] [address] Infected hernioplasty mesh, initial encounter Discharge Disposition: Discharge to home or self care 12/07/2024 10:30 AM CDT Office Visit [facility] Department of Surgery [facility] 12th [place] [address] [place] [address] Attila Foster MD Infected hernioplasty mesh, initial [...] & Plan (12/25/2023 9:18 AM CDT): -OSH ([facility]) OR 11/25, initially planned for elective surgery; c/b intraabdominal hemorrhage, OSH General Surgery c/s intra-op > Op notes obtained and uploaded in Media -Post op course c/b abscess c/f ECF, identified at OSH on 12/04 -Transfer to [facility] for higher level of care with prior EGS admission 12/09-12/18 Pathology OSH 11/25 -Benign hypervascular ovarian cyst with adhesions Assessment & Plan (12/12/2023 12:17 PM CDT): -OSH OR 11/25, initially planned for elective surgery; c/b intraabdominal hemorrhage, OSH General Surgery c/s intra-op > Op notes obtained and uploaded in Media -Post op course c/b abscess c/f ECF -Transfer to [facility] for higher level of care - SEE INTRA ABDOMINAL ABSCESS Pathology OSH 11/25 -Benign hypervascular ovarian cyst with adhesions At risk for malnutrition 12/12/2023 Assessment & Plan (12/26/2023 12:35 PM CDT): -Previously on TPN started at OSH; 12/04-12/17 -Pending CT cysto; can consider restarting TPN for nutritional support -Weekly nutrition labs NUTRITION LABS 12/10 Albumin 3.0 Prealbumin 10 5/30 Albumin 3.8 Prealbumin 28 6/6 Albumin 4.0 [...] 9:47 AM CDT): Relevant surgical history: (all [facility]) 06/05/22: lap sigmoidectomy 04/21/23: open VHR with [...] doyle today. No follow up per Urology. 6/9 Tolerating a regular diet and having BM's. [...] 1:41 PM CDT): Relevant surgical history: (all [facility]) 06/05/22: lap sigmoidectomy 04/21/23: open VHR with [...] check. She would like to follow with [facility] IR and General surgery. IR drain yellow [...] EGS and IR follow up on 12/31. [facility] Imagin/23 LE Arterial Dopplers - bilateral lower [...] Complete spontaneous w/o complication;Recorded Elsewhere: No Location: [facility] Source: EHR Chronic: N Practice ID: [id number] Billable Time: 04:30:00 PM Pelvic and perineal pain 01/12/2018 Overview (09/30/2024): Pelvic pain;Recorded Elsewhere: No Location: [facility] Source: EHR Chronic: N Practice ID: [id number] Billable Time: 11:00:00 AM Acute vaginitis 01/01/2016 Overview (09/30/2024): Acute vulvovaginitis;Recorded Elsewhere: No Location: [facility] Source: EHR Chronic: N Practice ID: [id number] Billable Time: 11:30:00 AM Female genital symptoms 11/02/2013 Overview (09/30/2024): Unspecified symptom associated with female genital organs;Recorded Elsewhere: No Location: [facility] Source: EHR Chronic: N Practice ID: [id number] Billable Time: 08:30:00 AM Headache 11/02/2013 Overview (09/30/2024): Headache;Recorded Elsewhere: No Location: [facility] Source: EHR Chronic: N Practice ID: [id number] Billable Time: 08:30:00 AM Hematochezia 11/02/2013 Overview (09/30/2024): Blood in stool;Recorded Elsewhere: No Location: [facility] Source: EHR Chronic: N Practice ID: [id number] Billable Time: 08:30:00 AM Sleep apnea 06/17/2012 Nontoxic single thyroid nodule 06/17/2012 Hirsutism 06/17/2012 Abdominal pain 12/17/2011 Overview (09/30/2024): Abdominal pain, other specified site;Recorded Elsewhere: No Location: [facility] Source: EHR Chronic: N Practice ID: [id number] Billable Time: 03:00:00 PM Goiter 09/11/2011 Overview (09/30/2024): Goiter, unspecified;Recorded Elsewhere: No Location: [facility] Source: EHR Chronic: N Practice ID: [id number] Billable Time: 09:15:00 AM Increased frequency of urination 09/11/2011 Overview (09/30/2024): Urinary frequency;Recorded Elsewhere: No Location: [facility] Source: EHR Chronic: N Practice ID: [id number] [...] updated 12/12/23) Primary Care Provider: Rossana Ireland, [employer] DEVEL[employer] Placement or Home Health Company: N/A Current [...] materials from doctor or pharmacy Never 12/21/2023 [facility] Utilities Answer Date Recorded In the past 12 months has e [employer], [employer], oil, or water [employer] threatened to shut off services in your [...] often do you attend chur ch or lutheran services? Never 12/26/2023 Do you belong to any clubs o r organizations such as voodoo groups, unions, fraternal or athletic groups, or [...] Date Recorded PHQ-2 Total Score 1 12/26/2023 [facility] of Occupat ional Health - Occupational [...] were you homeless or living in a mcc (including now)? No 12/26/2023 Personal Safety Answer Date Recorded Have you ever been in or are you currently in a harmful physical or emotional relationship or is someone making you feel afraid or unsafe? 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 Electronically signed by: Mason Daniel M.D. [facility] Jose Foster MD IMG CT PROCEDURES Fi nal Result from Last 3 Months Insurance [facility] CHOICE PLUS IDLA [facility] CHOICE PLUS IDLA [facility] Advance Directives For more information, please contact: [phone] * Full Code (Latest Code Status on [...] 9:24 PM 12/19/2023 10:20 PM Care Teams Poultry Scientist Relationship Specialty Start Date End Date Diomedes Seals MD [address] [place] [id number] PCP - General Family Medicine 12/28/23
--- OUTSIDE RECORDS SUMMARY | 2025-02-07 09:35 | XMS_ITS | Clinical Summary ---
Author Organization [facility] Address [address] [facility] [place] [address] Care Team Providers Care Fifth Grade Teacher Name Role Phone Diomedes Seals MD Primary Care Provider [phone] Source Comments [facility],non-owned Affiliates and Associated Physician Practices is amultiple site organization consisting of ambulatory clinics and hospital sitesin [place], [place], [place] and [place]. This disclosure is being madepursuant to the Care Everywhere program and may not contain all information available regarding this patient. Last updated 18.[facility] Allergies Active Allergy Reactions Criticality Noted Date [...] on file Legal Sex Female 6:54 PM ACOUSTICAL MATERIAL WORKER Gender Identity Not on file Sexual Orientation [...] Comments LIPID PROFILE Routine 09/18/2011 8:02 AM ACOUSTICAL MATERIAL WORKER from Last 3 Months or Most Recently Relevant to Health Maintenance Results * (ABNORMAL) LIPID PROFILE (09/18/2011 8:02 AM ACOUSTICAL MATERIAL WORKER) Cholesterol Total 176 125 - 200 mg/dL [facility]) Comment: Test Performed at: [facility] [address] [place] [address] BINA LEVINE DO HDL 32(L) > OR [...] Venous blood specimen (specimen) 09/18/2011 8:02 AM ACOUSTICAL MATERIAL WORKER 09/18/2011 8:03 AM ACOUSTICAL MATERIAL WORKER Joe Gonzalez MD LAB - CHEMISTRY ORDERABLES Fin al Result [facility] ([facility]) [id number] from Last 3 Months or Most Recently Relevant to Health Maintenance Insurance MEDICAID - OUT OF STATE [facility] [place] - [place] [facility] * Guarantor: MALISSA HERNANDEZI Account Type Relation to Patient Date of Phone Billing Address Personal/Family [address] [place] [address] SELF PAY NO INSURANCE Member Subscriber Plan / Payer (Ef fective for All Dates) Name:Alis Hernandez Member ID:Not on file Relation to Subscriber:Not on file Name:MALISSA HERNANDEZI Subscriber ID:Not on file Address: [address] [place] [address] Payer ID:Not on file Group ID:Not on file Type:Self Pay Address: [facility] * Guarantor: ALIS HERNANDEZ Account Type Relation to Patient Date of Phone Billing Address Personal/Family [address] [place], [place] [phone] SELF PAY NO INSURANCE Member Subscriber Plan / Payer (Ef fective for All Dates) Name:Alis Hernandez T Member ID:Not on file Relation to Subscriber:Not on file Name:ALIS HERNANDEZ Subscriber ID:Not on file Address: [address] [place] [address] Payer ID:Not on file Group ID:Not on file Type:Self Pay Address: [facility] * Guarantor: ALIS HERNANDEZ Account Type Relation to Patient Date of Phone Billing Address Personal/Family [address] [place] [address] SELF PAY NO INSURANCE Member Subscriber Plan / Payer (Ef fective for All Dates) Name:Alis Hernandez T Member ID:Not on file Relation to Subscriber:Not on file Name:ALIS HERNANDEZ Subscriber ID:Not on file Address: [address] [place], [place] [phone] Payer ID:Not on file Group ID:Not on file Type:Self Pay Address: [facility] Care Teams Fifth Grade Teacher Relationship Specialty Start Date End Date Diomedes Seals MD [address] [place] [address] PCP - General 06/20/22
[2025-02-07 10:43] LABS: Hematocrit 38.1 % (37.0-47.0); Hemoglobin 12.5 g/dL (12.0-15.0); Immature Granulocyte Percent A 0.4 % (0-0.5); Lymphocytes Absolute Auto 1.58 K/mm3 (0.9-3.2); Mean Corpuscular HGB Conc 32.8 g/dl (32-36); Mean Corpuscular Hemoglobin 29.4 pg (26-34); Mean Corpuscular Volume 89.6 fl (80-100); Nucleated Red Blood Cells Absolute Auto 0.000 K/mm3 (0.0-0.012); Nucleated Red Blood Cells Perc 0.0 % (0.0-0.2); Platelet Count Result 346 k/mm3 (150-375); Red Blood Count 4.25 M/mm3 (4.2-5.4); White Blood Count 8.0 K/mm3 (4.5-10.0)
[2025-02-07 11:12] LABS: Free T4 Free Thyroxine 0.74 ng/dL (0.78-2.19)
[2025-02-07 11:20] LABS: Hemoglobin A1C 6.1 % (<5.7)
[2025-02-07 11:41] LABS: Alanine Aminotransferase 31 U/L (6-35); Albumin Level 4.5 g/dL (3.5-5.1); Alkaline Phosphatase 101 U/L (38-126); Anion Gap 8 mmol/L (4-12); Aspartate Amino Transferase 40 U/L (14-36); Bilirubin,Total 0.7 mg/dL (0.2-1.3); Blood Urea Nitrogen 11 mg/dL (7-17); CRP 0.8 mg/dL (<1.0); Calcium 9.1 mg/dL (8.4-10.2); Carbon Dioxide 26 mmol/L (22-30); Chloride 102 mmol/L (98-107); Creatine Kinase 123 U/L (30-135); Estimated Glomerular Filt Rate > 60; Glucose 108 mg/dL (65-110); Potassium 4.3 mmol/L (3.4-5.0); Sodium 136 mmol/L (137-145); Thyroid Stimulating Hormone 0.772 uIU/mL (0.465-4.680); Total Protein 8.4 g/dL (6.3-8.2)
[2025-02-09 09:08] LABS: ANA by IFA Rfx Titer/Pattern Negative (.)
== END 2025-02-07 09:27 | disposition home or self-care (01) ==
PROVIDERS: PCP Family Medicine
DX: M54.2 Cervicalgia (principal); R76.8 Other specified abnormal immunological findings in serum; G40.909 Epilepsy, unspecified, not intractable, without status epilepticus; D64.9 Anemia, unspecified; E55.9 Vitamin D deficiency, unspecified; R73.9 Hyperglycemia, unspecified
CPT/HCPCS: 36415; 72040; 80053; 82306; 82550; 83036; 84439; 84443; 85025; 86038; 86140; 86430

== ENCOUNTER 2025-03-17 14:22 | Outpatient (CLI) | payer OTHER, SELFPAY ==
--- NOTE | ~2025-03-17 | MM_ITS ---
EXAMINATION: screening [facility] BI w milo INDICATION: Asymptomatic, referred for screening mammogram COMPARISON: 04/29/2023 through 01/07/2020 TECHNIQUE: Digital Breast Tomosynthesis CC, MLO views of Both breasts were obtained with computer-aided detection to assist in interpretation of the study. FINDINGS: There are scattered areas of fibroglandular density. There is an asymmetry seen on the MLO view in the central retroareolar left breast at posterior third. Elsewhere, there are no mammographic features of malignancy. IMPRESSION: 1. Left breast Asymmetry. 2. No evidence of malignancy in the Right breast. RECOMMENDATION: Left breast Diagnostic mammogram with true lateral, appropriate spot compression views and an ultrasound if needed. BI-RADS Category 0: Incomplete: Needs additional imaging evaluation. Reviewed, dictated and finalized at location B. IMPRESSION: 1. Left breast Asymmetry. 2. No evidence of malignancy in the Right breast. RECOMMENDATION: Left breast Diagnostic mammogram with true lateral, appropriate spot compressio n views and an ultrasound if needed. BI-RADS Category 0: Incomplete: Needs additional imaging evaluation.
--- OUTSIDE RECORDS SUMMARY | 2025-03-17 14:30 | XMS_ITS | Encounter Summary ---
Author Organization [facility] Address [address] [place] [address] Phone Care Team Providers Care Repairer Controller Tester Name Role Phone Diomedes eSals MD Primary Care Provider [phone] Encounter Details Date Type Department Care Team (Late st Contact Info) Description 02/14/2025 Results Follow-Up [facility] Medicine Obstetrics and Gynecology [address] [facility] Outpatient Health 7th Floor [address] [place] [address] Perla Kwong NP [address] [address] [place] Pelvis Complete Social History Tobacco Use Types Packs/Day Years Used Date Smoking Tobacco: Every Day Vaping Smokeless Tobacco: Never Comments:Vapes nictotine OASIS D0700: Social Isolation Answer [...] materials from doctor or pharmacy Never 12/21/[address] [facility] Utilities Answer Date Recorded In the past 12 months has th e electric, gas, oil, or water company threatened to shut off services in your [...] or ex-partner? No 12/25/2023 Social Connection and Isolation Panel Answer Date Recorded In a typical week, how many times do you talk on the phone with family, friends, or neighbors? More than three times a week 12/26/2023 How often do you get togethe r with friends or relatives? More than three times a week 12/26/2023 How often do you attend [facility] or zoroastrianism services? 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
--- OUTSIDE RECORDS SUMMARY | 2025-03-17 14:30 | XMS_ITS | Clinical Summary ---
Author Organization [facility] Address [address] [facility] [place] [address] Care Team Providers Care Grain Buyer Name Role Phone Diomedes Seals MD Primary Care Provider Source Comments [facility],non-owned Affiliates and Associated Physician Practices is amultiple site organization consisting of ambulatory clinics and hospital sitesin [place], [place], [place] and [place]. This disclosure is being madepursuant to the Care Everywhere program and may not contain all information available regarding this patient. Last updated 18.[facility] Allergies Active Allergy Reactions Criticality Noted Date [...] on file Legal Sex Female 6:54 PM ART HISTORIAN Gender Identity Not on file Sexual Orientation [...] Comments LIPID PROFILE Routine 09/18/2011 8:02 AM ART HISTORIAN from Last 3 Months or Most Recently Relevant to Health Maintenance Results * (ABNORMAL) LIPID PROFILE (09/18/2011 8:02 AM ART HISTORIAN) Cholesterol Total 176 125 - 200 mg/dL [facility]) Comment: Test Performed at: [facility] [address] [place] [address] BINA LEVINE DO HDL 32(L) > OR [...] Venous blood specimen (specimen) 09/18/2011 8:02 AM ART HISTORIAN 09/18/2011 8:03 AM ART HISTORIAN Joe Gonzalez MD LAB - CHEMISTRY ORDERABLES Fin al Result [facility] ([facility]) [phone] from Last 3 Months or Most Recently Relevant to Health Maintenance Insurance MEDICAID - OUT OF STATE [facility] MEDICAID - [place] [facility] * Guarantor: MALISSA HERNANDEZI Account Type Relation to Patient Date of Phone Billing Address Personal/Family [address] [place] [address] SELF PAY NO INSURANCE Member Subscriber Plan / Payer (Ef fective for All Dates) Name:Alis Hernandez Member ID:Not on file Relation to Subscriber:Not on file Name:MALISSA HERNANDEZI Subscriber ID:Not on file Address: [address] [place] [address] Payer ID:Not on file Group ID:Not on file Type:Self Pay Address: [facility] * Guarantor: ALIS HERNANDEZ Account Type Relation to Patient Date of Phone Billing Address Personal/Family [address] [place], [place] [phone] SELF PAY NO INSURANCE Member Subscriber Plan / Payer (Ef fective for All Dates) Name:Alis Hernandez T Member ID:Not on file Relation to Subscriber:Not on file Name:ALIS HERNANDEZ Subscriber ID:Not on file Address: [address] [place] [address] Payer ID:Not on file Group ID:Not on file Type:Self Pay Address: [facility] * Guarantor: ALIS HERNANDEZ Account Type Relation to Patient Date of Phone Billing Address Personal/Family [address] [place] [address] SELF PAY NO INSURANCE Member Subscriber Plan / Payer (Ef fective for All Dates) Name:Alis Hernandez T Member ID:Not on file Relation to Subscriber:Not on file Name:ALIS HERNANDEZ Subscriber ID:Not on file Address: [address] [place], [place] [phone] Payer ID:Not on file Group ID:Not on file Type:Self Pay Address: [facility] Care Teams Grain Buyer Relationship Specialty Start Date End Date Diomedes Seals MD [address] [place] [address] PCP - General 06/20/22
--- OUTSIDE RECORDS SUMMARY | 2025-03-17 14:30 | XMS_ITS | Clinical Summary ---
Author Organization [facility] Address [address] [place] [address] Care Team Providers Care Power Grader Operator Name Role Phone Diomedes Seals MD Primary Care Provider [phone] Allergies Active Allergy Reactions Criticality Noted Date Comments Iodinated Contrast Media Rhinitis Medium 03/14/2020 IV contrast only, tolerated at OSH with IV benadryl pre-medication Gluten Other (See comments) High 12/19/2023 pain Gluten Protein Other (See comments) High 02/04/2024 Irbesartan Other (See comments) Low 01/12/2024 Hair loss Penicillin G Rash Medium 12/10/2023 Shrimp Rash Medium 12/26/2023 Medications amLODIPine (NORVASC) 5 mg tabletIndication s:hypertension Take [...] capsule (60 mg total) by mouth daily 03/25/2024 Active cholecalciferol (VITAMIN D-3) 50,000 unit capsule Take 1 capsule (50,000 Units total) by mouth once a week 09/28/2024 Active Active Problems Problem Noted Date Diagnosed [...] dispo -12/[address] scan with [place] contrast 12/16 Starting clear liquids but continuing [...] identified at OSH on 12/04 -Transfer to [facility] for higher level of care with prior EGS admission 12/09-12/18 Pathology OSH 11/25 -Benign hypervascular ovarian cyst with adhesions Assessment & Plan (12/12/2023 12:17 PM CDT): -OSH OR 11/25, initially planned for elective surgery; c/b intraabdominal hemorrhage, OSH General Surgery c/s intra-op > Op notes obtained and uploaded in Media -Post op course c/b abscess c/f ECF -Transfer to [facility] for higher level of care - [...] IV cefe/flagyl, CT AP with IV and MO contrast to rule out missed colon injury, LEDs and lower extremity arterial doppler 12/11 LE US studies unrevealing. CT A/P with MO contrast pending. No nausea, continue IV antibiotics. [...] check. She would like to follow with [facility] IR and General surgery. IR drain [...] EGS and IR follow up on 12/31. [facility] Imagin/23 LE Arterial Dopplers - bilateral [...] Complete spontaneous w/o complication;Recorded Elsewhere: No Location: [facility] Source: EHR Chronic: N Practice ID: [id number] Billable Time: 04:30:00 PM Pelvic and perineal pain 01/12/2018 Overview (09/30/2024): Pelvic pain;Recorded Elsewhere: No Location: [facility] Source: EHR Chronic: N Practice ID: [id number] Billable Time: 11:00:00 AM Acute vaginitis 01/01/2016 Overview (09/30/2024): Acute vulvovaginitis;Recorded Elsewhere: No Location: [facility] Source: EHR Chronic: N Practice ID: [id number] Billable Time: 11:30:00 AM Female genital symptoms 11/02/2013 Overview (09/30/2024): Unspecified symptom associated with female genital organs;Recorded Elsewhere: No Location: [facility] Source: EHR Chronic: N Practice ID: [id number] Billable Time: 08:30:00 AM Headache 11/02/2013 Overview (09/30/2024): Headache;Recorded Elsewhere: No Location: [facility] Source: EHR Chronic: N Practice ID: [id number] Billable Time: 08:30:00 AM Hematochezia 11/02/2013 Overview (09/30/2024): Blood in stool;Recorded Elsewhere: No Location: [facility] Source: EHR Chronic: N Practice ID: [id number] Billable Time: 08:30:00 AM Sleep apnea 06/17/2012 Nontoxic single thyroid nodule 06/17/2012 Hirsutism 06/17/2012 Abdominal pain 12/17/2011 Overview (09/30/2024): Abdominal pain, other specified site;Recorded Elsewhere: No Location: [facility] Source: EHR Chronic: N Practice ID: [id number] Billable Time: 03:00:00 PM Goiter 09/11/2011 Overview (09/30/2024): Goiter, unspecified;Recorded Elsewhere: No Location: [facility] Source: EHR Chronic: N Practice ID: [id number] Billable Time: 09:15:00 AM Increased frequency of urination 09/11/2011 Overview (09/30/2024): Urinary frequency;Recorded Elsewhere: No Location: [facility] Source: EHR Chronic: N Practice ID: [id number] [...] updated 12/12/23) Primary Care Provider: Rossana Ireland, INSPECTOR CIRCUITRY NEGATIVE Placement or Home Health Company: N/A Current [...] Encounters Date Type Department Care Team Description 03/11/[address] [facility] Medicine Surgery [address] [facility] Advanced Medicine 12th [place] [address] [place] [address] Joyce Zamora CMA 02/14/2025 10:54 AM CDT - 02/14/2025 11:59 PM CDT Hospital Encounter [facility]patient [facility] - Ultrasound [address] [facility], 7th Floor, [address] [facility] [place] [address] Cyst of right ovary Discharge Disposition: Discharge to home or self care 02/14/2025 Results Follow-Up [facility] Medicine Obstetrics and Gynecology [address] [facility] Outpatient Health 7th Floor [address] [place] [address] Perla Kwong NP US Pelvis Complete 01/28/[address] [facility] Medicine Obstetrics and Gynecology [address] [facility] 7th Floor [address] [place] [address] Dorie Jordan Rai, NP Cyst of right ovary (Primary Dx) 01/25/2025 11:00 AM CDT Office Visit [facility] Medicine Surgery [address] [facility] 12th [place] [address] [place] [address] Attila Foster MD Infected hernioplasty mesh, subsequent encounter (Primary Dx) 01/25/2025 9:26 AM CDT - 01/25/2025 11:59 PM CDT Hospital Encounter [facility] [address] [place] [address] Infected hernioplasty mesh, initial encounter Discharge Disposition: Discharge to home or self care from Last 3 Months Immunizations Immunization Administration [...] (gastroesophageal reflux disease) DVT (deep venous thrombosis) Depression Stroke (HCC) Chronic kidney disease Anemia [...] materials from doctor or pharmacy Never 12/21/2023 [facility] Utilities Answer Date Recorded In the past 12 months has th e [employer], gas, oil, or water [employer] threatened to shut off services in your [...] often do you attend chur ch or yazidism services? Never 12/26/2023 Do you belong to any clubs o r organizations such as muslim groups, unions, fraternal or athletic groups, or [...] Date Recorded PHQ-2 Total Score 1 12/26/2023 [facility] [place] of Occupat ional Health - Occupational Stress [...] any time in the past 12 m [facility], were you homeless or living in a custodial (including now)? No 12/26/2023 Personal Safety Answer Date Recorded Have you ever been in or are you currently in a harmful physical or emotional relationship or is someone making you feel afraid or unsafe? 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 Gender Identity Female 12/22/2023 9:56 AM [...] <65 (1 of 2 - PCV) 10/01/1998 HPV Vaccines (1 - 3-dose SCDM series) 10/01/2006 Covid-19 Vaccine ( - season) 03/21/202402/2021, 11/03/2020 Breast Cancer Screening-Mammogram 04/29/2024 023, 01/10/2020 Depression Screening 12/23/2024 12/24/2023 Influenza Vaccine (#1) 2025 06/12/2012 Regular Well Visit/Exam 18-64 09/30/2025 09/30/2024 Procedures Procedure Name Priority Date/Time Associated Diagnosis Comments US PELVIS COMPLETE Schedule Routine, Read Routine (OP Routine) 02/14/2025 10:54 AM CDT Cyst of right ovary CT ABDOMEN PELVIS WO CONTRAST Schedule Routine, Read Routine (OP Routine) 01/25/2025 10:31 AM CDT Infected hernioplasty mesh, initial encounter from Last 3 Months Results * US Pelvis Complete (02/14/2025 10:54 AM CDT) Cul de Sac Free fluid visualized [facility] Endometrial Thickness 6.7 mm&millim eters [facility] Anatomical Region Laterality Modality Pelvis N/A Ultrasound 02/14/2025 10:5 5 AM CDT Impressions 02/14/2025 12:53 PM CDT The uterus is anteverted and normal in size and morphology. An IUD is present in the endometrial cavity, appropriately positioned at the fundus. No endometrial abnormalities are appreciated. The endometrial thickness measured 6.7 mm. The 3D coronal view of the uterine cavity is normal in appearance. The right ovary is normal in size and appearance; the left ovary is surgically absent. There a trace of anechoic free fluid in right adnexa but no free fluid appreciated in the posterior cul-de-sac. Narrative Procedure Note Amanda Lee MD - 02/14/2025 IMPRESSION: The uterus is anteverted and normal in size and morphology. An IUD is present in the endometrial cavity, appropriately positioned atthe fundus. No endometrial abnormalities are appreciated. The endometrial thicknessmeasured 6.7 mm. The 3D coronal view of the uterine cavity is normal in appearance. The right ovary is normal in size and appearance; the left ovary issurgically absent. There a trace of anechoic free fluid in right adnexa but no free fluidappreciated in the posterior cul-de-sac. us Dorie Jordan NP IMG US PROCEDURES Final Result * CT abdomen pelvis without contrast (01/25/2025 [...] nal Result from Last 3 Months Insurance [facility] CHOICE PLUS IDPA [facility] CHOICE PLUS [facility] Advance Directives For more information, please contact: [phone] * Full Code (Latest Code Status on [...] 9:24 PM 12/19/2023 10:20 PM Care Teams Power Grader Operator Relationship Specialty Start Date End Date Diomedes Seals MD [address] [place] [place] [address] PCP - General Family Medicine 12/28/23
== END 2025-03-17 14:23 | disposition home or self-care (01) ==
PROVIDERS: PCP Family Medicine; Visit Provider Family Medicine
DX: Z12.31 Encounter for screening mammogram for malignant neoplasm of breast (principal); R92.8 Other abnormal and inconclusive findings on diagnostic imaging of breast
CPT/HCPCS: 77063; 77067

== ENCOUNTER 2025-03-18 14:25 | Outpatient (CLI) | payer OTHER, SELFPAY ==
--- OUTSIDE RECORDS SUMMARY | 2019-12-14 05:46 | XMS_ITS | Continuity of Care Document ---
Author Organization [facility] Address [address] [facility] [place] [address] Phone Care Team Providers Care Field Cane Scaler Name Role Phone Hema Arreola MD Unavailable Unavailable Allergies, Adverse Reactions, Alerts Substance Reaction Status Criticality iodine Active No Information Medications Medication Instructions Dosage Effective Dates (start - stop) Status Comments ipratropium bromide 42 mcg (0.06 %) nasal spray spray 2 spray by intranasal route 3 times every day in each nostril 2.00 spray - Active Lexapro 10 mg tablet take 1 tablet by or al route every day 10 MG - Active irbesartan 150 mg tablet take 1 tablet by oral route every day 150 MG - Active Lamictal 200 mg tablet take [...] Diagnoses Date Provider Providers Copied on Encounter [facility], [address], [place], [id number], [place] tel:[phone] [facility] No Information 0 Maxwell Garrido. [address], [place], [place], [address] , [place]. tel:[phone] OFFICE/OUTPA TIENT VISIT, EST [facility], [address], [place], [place], [address], [place] tel:[phone] [facility] HTN (chief complaint) hyponatrem ia (chief complaint) anxiety1 (chief complaint) sinus (chief complaint) sleep apnea1 (chief complaint) Sleep apneaEssential (primary) hypertensionHyponat remiaAbnormality of plasma proteinGeneralized Anxiety Disorder 0 Maxwell Garrido. [address], [place], [place], [address] , [place]. tel:[phone] [facility], [address], [place], [place], [address], [place] tel:[phone] [facility] protein1 (chief complaint) hyponatrem ia1 (chief complaint) HTN (chief complaint) anxiety1 (chief complaint) sinus1 (chief complaint) Sleep apneaEssential (primary) hypertensionHyponat remiaAbnormality of plasma protein 0 0 Maxwell Garrido. [address], [place], [place], [address] , [place]. tel:[phone] Referring Provider: Hema Arreola, [address], [place], [place], [address]. tel:[phone] PREV VISIT, EST, AGE 18-39 [facility], [address], [place], [place], [address], [place] tel:[phone] [facility] physical (chief complaint) Encntr for general adult medical exam w/o abnormal findings 0 Maxwell Garrido. [address], [place], [place], [address] , [place]. tel:[phone] Referring Provider: Hema Arreola [address], [place], [place], [address]. tel:[phone] OFFICE/OUTPA TIENT VISIT, EST [facility], [address], [place], [place], [address], [place] tel:[phone] [facility] HTN (chief complaint) sleep apnea1 (chief complaint) seizure1 (chief complaint) Body mass index (BMI) 38.0-38.9, adultSleep apneaEssential (primary) hypertensionEpileps yVentral hernia 9 Maxwell Garrido. [address], [place], [place], [address] , . tel:[phone] Referring Provider: Ge[address], [place], [place], [address]. tel:[phone] PREV VISIT, NEW, AGE 18-39 [facility], [address], [place], [place], [address], [place] tel:[phone] [facility] Physical (chief complaint) Encntr for general adult medical exam w/o abnormal findings 9 Maxwell Garrido. [address], [place], [place], [address] , . tel:[phone] Referring Provider: [address] [facility] [address], [place], [place], [address]. tel:[phone] Family History Family Member Type Diagnosis Age At Onset Brother Problem (finding) Alive and well Mother Problem (finding) PE Father Problem (finding) Coronary artery disease 70 Payers Payer name Insurance type Covered alliance party ID Authoriza tion(s) No Information Social [...] sleep study. 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 Pt feels cloudy brained. Physical Pt needs annual physical pt has [...]
--- OUTSIDE RECORDS SUMMARY | 2025-03-18 14:30 | XMS_ITS | Encounter Summary ---
Author Organization [facility] Address [address] [place] [address] Phone Care Team Providers Care Software Quality Engineer Name Role Phone Diomedes Seals MD Primary Care Provider [phone] Encounter Details Date Type Department Care Team (Late st Contact Info) Description 02/14/2025 Results Follow-Up [facility] Medicine Obstetrics and Gynecology [address] [facility] Outpatient Health 7th Floor [address] [place] [address] Perla Kwong NP [address] [address] [place] Pelvis Complete Social History [...] materials from doctor or pharmacy Never 12/21/2023 [facility] Utilities Answer Date Recorded In the [...] week 12/26/2023 How often do you attend [facility] or moravian services? 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
--- OUTSIDE RECORDS SUMMARY | 2025-03-18 14:30 | XMS_ITS | Clinical Summary ---
Author Organization [facility] [employer] Address [address] [place] [address] Care Team Providers Care Shrimp Peeling Machine Tender Name Role Phone Diomeeds Seals MD Primary Care Provider Source Comments [facility],non-owned Affiliates and Associated Physician Practices is amultiple site organization consisting of ambulatory clinics and hospital sitesin [place], [place], [place] and [place]. This disclosure is being madepursuant to the Care Everywhere program and may not contain all information available regarding this patient. Last updated 18.[facility] [employer] Allergies Active Allergy Reactions Criticality Noted Date [...] on file Legal Sex Female 6:54 PM LAUNCH CHECK OUT Gender Identity Not on file Sexual Orientation [...] Comments LIPID PROFILE Routine 09/18/2011 8:02 AM LAUNCH CHECK OUT from Last 3 Months or Most Recently Relevant to Health Maintenance Results * (ABNORMAL) LIPID PROFILE (09/18/2011 8:02 AM LAUNCH CHECK OUT) Cholesterol Total 176 125 - 200 mg/dL [facility] ([facility]) Comment: Test Performed at: [facility] [address] [place] [address] BINA LEVINE DO HDL 32(L) > OR [...] Venous blood specimen (specimen) 09/18/2011 8:02 AM LAUNCH CHECK OUT 09/18/2011 8:03 AM LAUNCH CHECK OUT Joe Gonzalez MD LAB - CHEMISTRY ORDERABLES Fin al Result [facility] ([facility]) [id number] from Last 3 Months or Most Recently Relevant to Health Maintenance Insurance MEDICAID - OUT OF STATE [facility] MEDICAID - [place] [facility] * Guarantor: MALISSA HERNANDEZI Account Type Relation to Patient Date of Phone Billing Address Personal/Family [address] [place] [address] SELF PAY NO INSURANCE Member Subscriber Plan / Payer (Ef fective for All Dates) Name:Alis Hernandez Member ID:Not on file Relation to Subscriber:Not on file Name:MALISSA HERNANDEZI Subscriber ID:Not on file Address: [address] [place] [address] Payer ID:Not on file Group ID:Not on file Type:Self Pay Address: [facility] * Guarantor: ALIS HERNANDEZ Account Type Relation to Patient Date of Phone Billing Address Personal/Family [address] [place], [place] [id number] SELF PAY NO INSURANCE Member Subscriber Plan / Payer (Ef fective for All Dates) Name:Alis Hernandez T Member ID:Not on file Relation to Subscriber:Not on file Name:ALIS HERNANDEZ Subscriber ID:Not on file Address: [address] [place] [address] Payer ID:Not on file Group ID:Not on file Type:Self Pay Address: [facility] * Guarantor: ALIS HERNANDEZ Account Type Relation to Patient Date of Phone Billing Address Personal/Family [address] [place] [address] SELF PAY NO INSURANCE Member Subscriber Plan / Payer (Ef fective for All Dates) Name:Alis Hernandez T Member ID:Not on file Relation to Subscriber:Not on file Name:ALIS HERNANDEZ Subscriber ID:Not on file Address: [address] [place], [place] [id number] Payer ID:Not on file Group ID:Not on file Type:Self Pay Address: [facility] Care Teams Shrimp Peeling Machine Tender Relationship Specialty Start Date End Date Diomedes Seals MD [address] [place] [address] PCP - General 06/20/22
--- OUTSIDE RECORDS SUMMARY | 2025-03-18 14:30 | XMS_ITS | Clinical Summary ---
Author Organization [facility]3] at [facility] Address [address] [place] [address] Care Team Providers Care Coat Operator Insulator Name Role Phone Diomedes Seals MD Primary Care Provider + [phone] Allergies Active Allergy Reactions Criticality Noted Date [...] dispo -12/[address] scan with MI contrast 12/16 Starting clear liquids but continuing [...] identified at OSH on 12/04 -Transfer to [facility] for higher level of care with prior EGS admission 12/09-12/18 Pathology OSH 11/25 -Benign hypervascular ovarian cyst with adhesions Assessment & Plan (12/12/2023 12:17 PM CDT): -OSH OR 11/25, initially planned for elective surgery; c/b intraabdominal hemorrhage, OSH General Surgery c/s intra-op > Op notes obtained and uploaded in Media -Post op course c/b abscess c/f ECF -Transfer to [facility] for higher level of care [...] IV cefe/flagyl, CT AP with IV and MI contrast to rule out missed colon injury, LEDs and lower extremity arterial doppler 12/11 LE US studies unrevealing. CT A/P with MI contrast pending. No nausea, continue IV antibiotics. [...] check. She would like to follow with [facility] IR and General surgery. IR [...] EGS and IR follow up on 12/31. [facility] Imagin/23 LE Arterial Dopplers - [...] Complete spontaneous w/o complication;Recorded Elsewhere: No Location: [facility] Source: EHR Chronic: N Practice ID: [id number] Billable Time: 04:30:00 PM Pelvic and perineal pain 01/12/2018 Overview (09/30/2024): Pelvic pain;Recorded Elsewhere: No Location: [facility] Source: EHR Chronic: N Practice ID: [id number] Billable Time: 11:00:00 AM Acute vaginitis 01/01/2016 Overview (09/30/2024): Acute vulvovaginitis;Recorded Elsewhere: No Location: [facility] Source: EHR Chronic: N Practice ID: [id number] Billable Time: 11:30:00 AM Female genital symptoms 11/02/2013 Overview (09/30/2024): Unspecified symptom associated with female genital organs;Recorded Elsewhere: No Location: [facility] Source: EHR Chronic: N Practice ID: [id number] Billable Time: 08:30:00 AM Headache 11/02/2013 Overview (09/30/2024): Headache;Recorded Elsewhere: No Location: [facility] Source: EHR Chronic: N Practice ID: [id number] Billable Time: 08:30:00 AM Hematochezia 11/02/2013 Overview (09/30/2024): Blood in stool;Recorded Elsewhere: No Location: [facility] Source: EHR Chronic: N Practice ID: [id number] Billable Time: 08:30:00 AM Sleep apnea 06/17/2012 Nontoxic single thyroid nodule 06/17/2012 Hirsutism 06/17/2012 Abdominal pain 12/17/2011 Overview (09/30/2024): Abdominal pain, other specified site;Recorded Elsewhere: No Location: [facility] Source: EHR Chronic: N Practice ID: [id number] Billable Time: 03:00:00 PM Goiter 09/11/2011 Overview (09/30/2024): Goiter, unspecified;Recorded Elsewhere: No Location: [facility] Source: EHR Chronic: N Practice ID: [id number] Billable Time: 09:15:00 AM Increased frequency of urination 09/11/2011 Overview (09/30/2024): Urinary frequency;Recorded Elsewhere: No Location: [facility] Source: EHR Chronic: N Practice ID: [...] updated 12/12/23) Primary Care Provider: Rossana Ireland, MUSEUM ATTENDANT Placement or Home Health Company: N/A Current [...] Type Department Care Team Description 03/11/2025 Telephone [facility] Medicine Surgery [address] [facility] Advanced Medicine 12th [place] [address] [place] [address] Joyce Zamora CMA 02/14/2025 10:54 AM CDT - 02/14/2025 11:59 PM CDT Hospital Encounter [facility] Outpatient [facility] - Ultrasound [address] [facility], 7th Floor, [address] [facility] [place] [address] Cyst of right ovary Discharge Disposition: Discharge to home or self care 02/14/2025 Results Follow-Up [facility] Medicine Obstetrics and Gynecology [address] [facility] [place] Outpatient Health 7th Floor [address] [place] [address] Perla Kwong NP US Pelvis Complete 01/28/2025 Orders Only [facility] Medicine Obstetrics and Gynecology [address] [facility] 7th Floor [address] [place] [address] Dorie Jordan Rai, NP Cyst of right ovary (Primary Dx) 01/25/2025 11:00 AM CDT Office Visit [facility] Medicine Surgery [address] [facility] Advanced [facility] 12th [place] [address] [place] [address] Attila Foster MD Infected hernioplasty mesh, subsequent encounter (Primary Dx) 01/25/2025 9:26 AM CDT - 01/25/2025 11:59 PM CDT Hospital Encounter [facility] [address] [place] [address] Infected hernioplasty mesh, initial encounter Discharge Disposition: [...] doctor or pharmacy Never 12/21/2023 [facility] Utilities Answer Date Recorded In the past 12 months has th e [employer], gas, oil, or water [employer] threatened to shut off services in your [...] often do you attend chur ch or holiness services? Never 12/26/2023 Do you belong to any clubs o r organizations such as christian groups, unions, fraternal or athletic groups, or [...] Recorded PHQ-2 Total Score 1 12/26/2023 [facility] [place] of Occupat ional Health - Occupational Stress [...] any time in the past 12 m [facility], were you homeless or living in a halfway (including now)? No 12/26/2023 Personal Safety Answer Date Recorded Have you ever been in or are you currently in a harmful physical or emotional relationship or is someone making you feel afraid or unsafe? 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 EXAMINER Gender Identity Female 12/22/2023 9:56 AM CDT [...] nal Result from Last 3 Months Insurance [facility] CHOICE PLUS [facility] HMO/PPO Address: [address] [address] [place] [address] IDPA [facility] CHOICE PLUS [facility] HMO/PPO Address: [facility] [address] [place] [address] IDRI [facility] H[facility]/PPO Address[facility] [address] [place] [address] [facility] HMO/PPO Address: [address] [address] [facility] HMO/PPO Address: [address] [address] Advance Directives For more information, please contact: [phone] * Full Code (Latest Code Status on [...] 9:24 PM 12/19/2023 10:20 PM Care Teams Coat Operator Insulator Relationship Specialty Start Date End Date Diomedes Seals MD [address] [place] [address] PCP - General Family Medicine 12/28/23
[2025-03-18 15:34] LABS: Alanine Aminotransferase 29 U/L (6-35); Albumin Level 4.4 g/dL (3.5-5.1); Alkaline Phosphatase 135 U/L (38-126); Aspartate Amino Transferase 33 U/L (14-36); Bilirubin,Total 0.3 mg/dL (0.2-1.3)
[2025-03-18 15:35] LABS: Alanine Aminotransferase 27 U/L (6-35); Albumin Level 4.5 g/dL (3.5-5.1); Alkaline Phosphatase 131 U/L (38-126); Anion Gap 8 mmol/L (4-12); Aspartate Amino Transferase 30 U/L (14-36); Bilirubin,Total 0.4 mg/dL (0.2-1.3); Blood Urea Nitrogen 11 mg/dL (7-17); Calcium 9.2 mg/dL (8.4-10.2); Carbon Dioxide 25 mmol/L (22-30); Chloride 104 mmol/L (98-107); Estimated Glomerular Filt Rate > 60; Glucose 143 mg/dL (65-110); Potassium 4.1 mmol/L (3.4-5.0); Sodium 137 mmol/L (137-145); Total Protein 8.0 g/dL (6.3-8.2)
[2025-03-18 15:52] LABS: Free T4 Free Thyroxine 0.84 ng/dL (0.78-2.19)
[2025-03-18 16:11] LABS: Thyroid Stimulating Hormone 0.899 uIU/mL (0.465-4.680)
== END 2025-03-18 14:26 | disposition home or self-care (01) ==
LOC: ANHLAB 14:28
PROVIDERS: Nurse Practitioner Adult Health; PCP Family Medicine; Visit Provider Internal Medicine Gastroenterology
DX: K76.0 Fatty (change of) liver, not elsewhere classified (principal); I10 Essential (primary) hypertension; R79.89 Other specified abnormal findings of blood chemistry
CPT/HCPCS: 36415; 80053; 82040; 82247; 82248; 84075; 84439; 84443; 84450; 84460

== ENCOUNTER 2025-03-23 14:17 | Outpatient (CLI) | payer OTHER, SELFPAY ==
--- OUTSIDE RECORDS SUMMARY | 2019-12-14 05:46 | XMS_ITS | Continuity of Care Document ---
Author Organization [facility] Address [address] [place] [address] Phone Care Team Providers Care Manager Hospice Name Role Phone Hema Arreola MD Unavailable Unavailable Allergies, Adverse Reactions, Alerts Substance Reaction Status Criticality iodine Active No Information Medications Medication Instructions Dosage Effective Dates (start - stop) Status Comments irbesartan 150 mg tablet take 1 tablet by oral route every day 150 MG - Active Lexapro 10 mg tablet take 1 tablet by or al route every day 10 MG - Active ipratropium bromide 42 mcg (0.06 %) nasal spray spray 2 spray by intranasal route 3 times every day in each nostril 2.00 spray - Active Lamictal 200 mg tablet take 1 tablet by oral route 2 times every day 200 MG - Active Procedures Procedure Date OFFICE/OUTPATIENT VISIT, EST PREV VISIT, EST, AGE 18-39 OFFICE/OUTPATIENT VISIT, EST PREV VISIT, NEW, AGE 18-39 Advance Directives Directive Yes / No Effective Date File Name No Information Encounters Encounter Description Practice Location Reason(s) For Visit Diagnoses Date Provider Providers Copied on Encounter [facility] [place], [address], [id number], [place] tel:[phone] [facility] [place] No Information 0 Maxwell Garrido. [address], [place], [place], [id number] , [place]. tel:[phone] OFFICE/OUTPA TIENT VISIT, EST [facility] [place], [address], [place], [place], [address], [place] tel:[phone] [facility] [place] HTN (chief complaint) hyponatrem ia (chief complaint) anxiety1 (chief complaint) sinus (chief complaint) sleep apnea1 (chief complaint) Sleep apneaEssential (primary) hypertensionHyponat remiaAbnormality of plasma proteinGeneralized Anxiety Disorder 0 Maxwell Garrido. [address], [place], [place], [address] , [place]. tel:[phone] [facility] [place], [address], [place], [place], [address], [place] tel:[phone] [facility] [place] protein1 (chief complaint) hyponatrem ia1 (chief complaint) HTN (chief complaint) anxiety1 (chief complaint) sinus1 (chief complaint) Sleep apneaEssential (primary) hypertensionHyponat remiaAbnormality of plasma protein 0 0 Maxwell Garrido. [address], [place], [place], [address] , [place]. tel:[phone] Referring Provider: Hema Arreola, [address], [place], [place], [address]. tel:[phone] PREV VISIT, EST, AGE 18-39 [facility] [place], [address], [place], [place], [address], [place] tel:[phone] [facility] [place] physical (chief complaint) Encntr for general adult medical exam w/o abnormal findings 0 Maxwell Garrido. [address], [place], [place], [address] , [place]. tel:[phone] Referring Provider: Hema Arreola [address], [place], [place], [address]. tel:[phone] OFFICE/OUTPA TIENT VISIT, EST [facility] [place], [address], [place], [place], [address], [place] tel:[phone] [facility] [place] HTN (chief complaint) sleep apnea1 (chief complaint) seizure1 (chief complaint) Body mass index (BMI) 38.0-38.9, adultSleep apneaEssential (primary) hypertensionEpileps yVentral hernia 9 Maxwell Garrido. [address], [place], [place], [address] , . tel:[phone] Referring Provider: [address], [place], [place], [address]. tel:[phone] PREV VISIT, NEW, AGE 18-39 [facility], [address], [place], [place], [address], [place] tel:[phone] [facility] [place] Physical (chief complaint) Encntr for general adult medical exam w/o abnormal findings 9 Maxwell Garrido. [address], [place], [place], [address] , . tel:[phone] Referring Provider: Geovanni [address] [facility] [address], [place], [place], [address]. tel:[phone] Family History Family Member Type Diagnosis Age At Onset Brother Problem (finding) Alive and well Mother Problem (finding) PE Father Problem (finding) Coronary artery disease 70 Payers Payer name Insurance type Covered green party ID Authoriza tion(s) No Information Social History Type Description Quantity Date Captured Comments Sex Female Smoking Status No Information Chief Complaint And Reason For Visit No Information Plan Of Treatment Date Type Action Status Goal Special diet education compl eted Goal Special diet education compl eted Referral Ordered: SLEEP STUDY, ATTENDED ordered History Of Present Illness Encounter Date Complaint History Of Prese nt Illness sleep apnea1 Pt has mild slee p apnea Pt c/o feeling fatigue and she snores at night. Pt feels poorly rested in the morning sinus Pt c/o sinus con gestion and mild sneezing for the past several weeks. Pt failed flonase. Pt denies any purulent sinus drainage anxiety1 Pt has chronic a nxiety pt denies any depression or any suicidal thought. PT denies any crying spells. Pt feels anxious daily hyponatremia Pt has low sodiu m pt denies any headache or chest pain currently. Her sodium was slightly low in ER HTN Pt is back on ir besartan. Pt woke up last week with HTN, chest pain, and headache. Pt went to ER and had normal EKG, chest x ray, normal troponin, UA, CBC pt was sent home and she restarted irbesartan. Her BP is ok currently Pt denies any chest pain, headache currently anxiety1 Pt has chronic a nxiety pt denies any depression or any suicidsal thought hyponatremia1 Pt has low sodiu m pt denies any headache or chest pain HTN Pt has HTN ,Pt i s back on irbesartan since last week Pt woke up last night with HTN, chest pain, and headache, Pt went to ER and had normal EKG, chest x ray, normal troponin, UA, CBC pt was sent home and she restarted irbesartan sinus1 Pt c/o sinus con gestion and running for the past 1-2 months Pt c/o sneezing and dry cough protein1 Pt has elevated total protein physical Pt needs annual physical. pt has not been taking her BP medication, Pt states that it made her losing hair. her BP is ok today ,Pt denies any chest pain or headache .Pt has chronic fatigue. Pt does snore Pt is waiting for sleep study. 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 Pt feels cloudy brained. seizure1 Pt has absence s eizure, Pt takes lamictal ,Pt has nonspecific brain atrophy. Pt still having seizure sometimes at night and during the day. Pt denies any headache HTN Pt has chronic H TN pt used to take bp meds 5 years ago but she just stop taking it on her own due to hair loss. Her BP remains high, Pt denies any chest pain or headache Physical Pt needs annual physical pt has absence seizure x 5-6 years. Pt states that she has seizure during daytime and at night. pt has sleep apnea but she could not tolerate CPAP. Pt is on lamictal currently by neurology. Pt sees neurology. Pt does feel fatigue and she snores at night. Pt feels space out throughout the day but she remains conscious. Pt never passed out. Pt denies any other complaints Instructions Date Instruction Additional Infor jailyn Special diet education Related t o Body mass index (BMI) 38.0-38.9, adult Increase activity. Related to En cntr for general adult medical exam w/o abnormal findings Perform monthly self breast examinations. Related to Encntr for general adult medical exam w/o abnormal findings Special diet education Related t o Body mass index (BMI) 37.0-37.9, adult Assessments Type Assessment Date No Information
[2025-03-23 14:54] LABS: Glucose 133 mg/dL (65-110)
--- OUTSIDE RECORDS SUMMARY | 2025-03-23 15:47 | XMS_ITS | Clinical Summary ---
Author Organization [facility] [employer] Address [address] [facility] [place] [address] Care Team Providers Care Restaurant Kitchen Manager Name Role Phone Diomedes Seals MD Primary Care Provider [phone] Source Comments [facility],non-owned Affiliates and Associated Physician Practices is amultiple site organization consisting of ambulatory clinics and hospital sitesin [place], [place], [place] and [place]. This disclosure is being madepursuant to the Care Everywhere program and may not contain all information available regarding this patient. Last updated 18.[facility] [employer] Allergies Active Allergy Reactions Criticality Noted Date [...] on file Legal Sex Female 6:54 PM SOFTWARE DEVELOPMENT ENGINEER Gender Identity Not on file Sexual Orientation [...] Comments LIPID PROFILE Routine 09/18/2011 8:02 AM SOFTWARE DEVELOPMENT ENGINEER from Last 3 Months or Most Recently Relevant to Health Maintenance Results * (ABNORMAL) LIPID PROFILE (09/18/2011 8:02 AM SOFTWARE DEVELOPMENT ENGINEER) Cholesterol Total 176 125 - 200 mg/dL [facility] ([facility]) Comment: Test Performed at: [facility] [address] [place] [address] BINA LEVINE DO HDL 32(L) > OR [...] Venous blood specimen (specimen) 09/18/2011 8:02 AM SOFTWARE DEVELOPMENT ENGINEER 09/18/2011 8:03 AM SOFTWARE DEVELOPMENT ENGINEER Joe Gonzalez MD LAB - CHEMISTRY ORDERABLES Fin al Result [facility] ([facility]) [id number] from Last 3 Months or Most Recently Relevant to Health Maintenance Insurance MEDICAID - OUT OF [facility] MEDICAID - [place] [facility] * Guarantor: MALISSA HERNANDEZI Account Type Relation to Patient Date of Phone Billing Address Personal/Family [address] [place] [address] SELF PAY NO INSURANCE Member Subscriber Plan / Payer (Ef fective for All Dates) Name:Alis Hernandez Member ID:Not on file Relation to Subscriber:Not on file Name:MALISSA HERNANDEZI Subscriber ID:Not on file Address: [address] [place] [address] Payer ID:Not on file Group ID:Not on file Type:Self Pay Address: [facility] * Guarantor: ALIS HERNANDEZ Account Type Relation to Patient Date of Phone Billing Address Personal/Family [address] [place], [place] [phone] SELF PAY NO INSURANCE Member Subscriber Plan / Payer (Ef fective for All Dates) Name:Alis Hernandez T Member ID:Not on file Relation to Subscriber:Not on file Name:ALIS HERNANDEZ Subscriber ID:Not on file Address: [address] [place] [address] Payer ID:Not on file Group ID:Not on file Type:Self Pay Address: [facility] * Guarantor: ALIS HERNANDEZ Account Type Relation to Patient Date of Phone Billing Address Personal/Family [address] [place] [address] SELF PAY NO INSURANCE Member Subscriber Plan / Payer (Ef fective for All Dates) Name:Alis Hernandez T Member ID:Not on file Relation to Subscriber:Not on file Name:ALIS HERNANDEZ Subscriber ID:Not on file Address: [address] [place], [place] [phone] Payer ID:Not on file Group ID:Not on file Type:Self Pay Address: [facility] Care Teams Restaurant Kitchen Manager Relationship Specialty Start Date End Date Diomedes Seals MD [address] [place] [address] PCP - General 06/20/22
--- OUTSIDE RECORDS SUMMARY | 2025-03-23 15:47 | XMS_ITS | Encounter Summary ---
Author Organization [facility] Address [address] [place] [address] Phone Care Team Providers Care Lieutenant Firefighter Name Role Phone Diomedes Seals MD Primary Care Provider [phone] Encounter Details Date Type Department Care Team (Late st Contact Info) Description 02/14/2025 Results Follow-Up [facility] Medicine Obstetrics and Gynecology [address] [facility] Outpatient Health 7th Floor [address] [place] [address] Perla Kwong NP [address] [address] [place] Pelvis Complete Social History [...] materials from doctor or pharmacy Never 12/21/2023 [facility] Utilities Answer Date Recorded In the [...] week 12/26/2023 How often do you attend [facility] or holiness services? Never 12/26/2023 Do you belong to any clubs o r organizations such as zoroastrian groups, unions, fraternal or athletic groups, or [...] Date Recorded PHQ-2 Total Score 1 12/26/2023 [facility] [place] of Occupat ional Health - Occupational Stress [...] any time in the past 12 m [facility], were you homeless or living in a long term (including now)? No 12/26/2023 Personal Safety Answer Date Recorded Have you ever been in or are you currently in a harmful physical or emotional relationship or is someone making you feel afraid or unsafe? Denies 10/06/2024 Comments No Sex and Gender Information Value Date Recorded Sex Assigned at Not on file Legal Sex Female 12:43 AM COAL GRADER Gender Identity Female 12/22/2023 9:56 AM CDT Sexual Orientation Straight 12/22/2023 9: 56 AM CDT documented as of this encounter Plan of Treatment Not on file documented as of this encounter Visit Diagnoses Not on filedocumented in this encounter Care Teams Lieutenant Firefighter Relationship Specialty Start Date End Date Diomedes Seals MD [address] [place] [address] PCP - General Family Medicine 12/28/23 documented as of this encounter
--- OUTSIDE RECORDS SUMMARY | 2025-03-23 15:47 | XMS_ITS | Clinical Summary ---
Author Organization [facility] Address [address] [place] [address] Care Team Providers Care Customer Service Teller Name Role Phone Diomedes Seals MD Primary Care Provider [phone] Allergies Active Allergy Reactions Criticality Noted Date [...] dispo -12/[address] scan with MS contrast 12/16 Starting clear liquids but continuing [...] identified at OSH on 12/04 -Transfer to [facility] for higher level of care with prior EGS admission 12/09-12/18 Pathology OSH 11/25 -Benign hypervascular ovarian cyst with adhesions Assessment & Plan (12/12/2023 12:17 PM CDT): -OSH OR 11/25, initially planned for elective surgery; c/b intraabdominal hemorrhage, OSH General Surgery c/s intra-op > Op notes obtained and uploaded in Media -Post op course c/b abscess c/f ECF -Transfer to [facility] for higher level of care - [...] IV cefe/flagyl, CT AP with IV and MS contrast to rule out missed colon injury, LEDs and lower extremity arterial doppler 12/11 LE US studies unrevealing. CT A/P with MS contrast pending. No nausea, continue IV antibiotics. [...] check. She would like to follow with [facility] IR and General surgery. IR drain [...] EGS and IR follow up on 12/31. [facility] Imagin/23 LE Arterial Dopplers - bilateral [...] updated 12/12/23) Primary Care Provider: Rossana Ireland, BUSINESS ECONOMIST Placement or Home Health Company: N/A Current [...] Type Department Care Team Description 03/11/2025 Telephone [facility] Medicine Surgery [address] [facility] Advanced Medicine 12th [place] [address] [place] [address] Joyce Zamora CMA 02/14/2025 10:54 AM CDT - 02/14/2025 11:59 PM CDT Hospital Encounter [facility] [place] Outpatient [facility] - Ultrasound [address] [facility], 7th Floor, [address] [facility] [place] [address] Cyst of right ovary Discharge Disposition: Discharge to home or self care 02/14/2025 Results Follow-Up [facility] Medicine Obstetrics and Gynecology [address] [facility] Outpatient Health 7th Floor [address] [place] [address] Perla Kwong NP US Pelvis Complete 01/28/2025 Orders Only [facility] Medicine Obstetrics and Gynecology [address] [facility] 7th Floor [address] [place] [address] Dorie Jordan Rai, NP Cyst of right ovary (Primary Dx) 01/25/2025 11:00 AM CDT Office Visit [facility] Medicine Surgery [address] [facility] Advanced [facility] 12th [place] [address] [place] [address] Attila Foster MD Infected hernioplasty mesh, subsequent encounter (Primary Dx) 01/25/2025 9:26 AM CDT - 01/25/2025 11:59 PM CDT Hospital Encounter [facility] [address] [place] [address] Infected hernioplasty mesh, initial encounter Discharge Disposition: [...] Never 12/21/2023 [facility] Utilities Answer Date Recorded In the past 12 months has th e [employer], gas, oil, or water [employer] threatened to shut off services in your [...] any clubs o r organizations such as taoist groups, unions, fraternal or athletic groups, or [...] Date Recorded PHQ-2 Total Score 1 12/26/2023 [facility] [place] of Occupat ional Health - Occupational Stress [...] 1 12/26/2023 Housing Stability Vital Sign Answer Rion e Recorded In the last 12 months, was t here a time when you were not able to pay the mortgage or rent on time? No 12/26/2023 In the past 12 months, how m any times have you moved where you were living? 0 12/26/2023 At any time in the past 12 m [facility], were you homeless or living in a longterm (including now)? No 12/26/2023 Personal Safety Answer Date Recorded Have you ever been in or are you currently in a harmful physical or emotional relationship or is someone making you feel afraid or unsafe? Denies 10/06/2024 Comments No Sex and Gender Information Value Date Recorded Sex Assigned at Not on file Legal Sex Female 12:43 AM FRONT MAKER LOCKSTITCH Gender Identity Female 12/22/2023 9:56 AM CDT [...] Vaccines (1 - 3-dose SCDM series) 10/01/2006 Breast Cancer Screening-Mammogram 04/29/2024 023, 01/10/2020 Depression Screening 12/23/2024 12/24/2023 Covid-19 Vaccine ( season) 03/21/202502/2021, 11/03/2020 Influenza Vaccine (#1) 2025 06/12/2012 Regular Well [...] nal Result from Last 3 Months Insurance [facility] CHOICE PLUS IDPA [facility] CHOICE PLUS IDMI [facility] Advance Directives For more information, please contact: [phone] * Full Code (Latest Code Status on [...] 9:24 PM 12/19/2023 10:20 PM Care Teams Customer Service Teller Relationship Specialty Start Date End Date Diomedes Seals MD [address] [place] [address] PCP - General Family Medicine 12/28/23
== END 2025-03-23 14:18 | disposition home or self-care (01) ==
LOC: ANHLAB 14:20
PROVIDERS: PCP Family Medicine; Visit Provider Nurse Practitioner Adult Health
DX: R73.09 Other abnormal glucose (principal)
CPT/HCPCS: 36415; 82947

== ENCOUNTER 2025-03-28 14:32 | Outpatient (CLI) | payer OTHER, SELFPAY ==
--- OUTSIDE RECORDS SUMMARY | 2019-12-14 05:46 | XMS_ITS | Continuity of Care Document ---
Author Organization [facility] Address [address] [facility] [place] [address] Phone Care Team Providers Care Welfare Centre Manager Name Role Phone Hema Arreola MD Unavailable [...] Diagnoses Date Provider Providers Copied on Encounter [facility], [address], [address], [place] tel:[phone] [facility] No Information 0 Maxwell Garrido. [address], [place], [place], [address] , [place]. tel:[phone] OFFICE/OUTPA TIENT VISIT, EST [facility], [address], [place], [place], [address], [place] tel:[phone] [facility] HTN (chief complaint) hyponatrem ia (chief complaint) anxiety1 (chief complaint) sinus (chief complaint) sleep apnea1 (chief complaint) Sleep apneaEssential (primary) hypertensionHyponat remiaAbnormality of plasma proteinGeneralized Anxiety Disorder 0 Maxwell Garrido. [address], [place], [place], [address] , [place]. tel:[phone] [facility], [address], [place], [place], [address], [place] tel:[phone] [facility] protein1 (chief complaint) hyponatrem ia1 (chief complaint) HTN (chief complaint) anxiety1 (chief complaint) sinus1 (chief complaint) Sleep apneaEssential (primary) hypertensionHyponat remiaAbnormality of plasma protein 0 0 Maxwell Garrido. [address], [place], [place], [address] , [place]. tel:[phone] Referring Provider: Hema Arreola, [address], [place], [place], [address]. tel:[phone] PREV VISIT, EST, AGE 18-39 [facility], [address], [place], [place], [address], [place] tel:[phone] [facility] physical (chief complaint) Encntr for general adult medical exam w/o abnormal findings 0 Maxwell Garrido. [address], [place], [place], [address] , [place]. tel:[phone] Referring Provider: Hema Arreola [address], [place], [place], [address]. tel:[phone] OFFICE/OUTPA TIENT VISIT, EST [facility], [address], [place], [place], [address], [place] tel:[phone] [facility] HTN (chief complaint) sleep apnea1 (chief complaint) seizure1 (chief complaint) Body mass index (BMI) 38.0-38.9, adultSleep apneaEssential (primary) hypertensionEpileps yVentral hernia 9 Maxwell Garrido. [address], [place], [place], [address] , . tel:[phone] Referring Provider: Ge[address], [place], [place], [address]. tel:[phone] PREV VISIT, NEW, AGE 18-39 [facility], [address], [place], [place], [address], [place] tel:[phone] [facility] Physical (chief complaint) Encntr for general adult medical exam w/o abnormal findings 9 Maxwell Garrido. [address], [place], [place], [address] , [place]. tel:[phone] Referring Provider: Geovanni [address] [facility] [address], [place], [place], [address]. tel:[phone] Family History Family Member Type Diagnosis Age At Onset Brother Problem (finding) Alive and well Mother Problem (finding) PE Father Problem (finding) Coronary artery disease 70 Payers Payer name Insurance type Covered republican ID Authoriza tion(s) No Information Social History [...] Date Complaint History Of Prese nt Illness HTN Pt is back on ir besartan. Pt woke up last week with HTN, chest pain, and headache. Pt went to ER and had normal EKG, chest x ray, normal troponin, UA, CBC pt was sent home and she restarted irbesartan. Her BP is ok currently Pt denies any chest pain, headache currently hyponatremia Pt has low sodiu m pt denies any headache or chest pain currently. Her sodium was slightly low in ER anxiety1 Pt has chronic a nxiety pt denies any depression or any suicidal thought. PT denies any crying spells. Pt feels anxious daily sinus Pt c/o sinus con gestion and mild sneezing for the past several weeks. Pt failed flonase. Pt denies any purulent sinus drainage sleep apnea1 Pt has mild slee p apnea Pt c/o feeling fatigue and she snores at night. Pt feels poorly rested in the morning protein1 Pt has elevated total protein sinus1 Pt c/o sinus con gestion and running for the past 1-2 months Pt c/o sneezing and dry cough HTN Pt has HTN ,Pt i s back on irbesartan since last week Pt woke up last night with HTN, chest pain, and headache, Pt went to ER and had normal EKG, chest x ray, normal troponin, UA, CBC pt was sent home and she restarted irbesartan hyponatremia1 Pt has low sodiu m pt denies any headache or chest pain anxiety1 Pt has chronic a nxiety pt denies any depression or any suicidsal thought physical Pt needs annual physical. pt has not been taking her BP medication, Pt states that it made her losing hair. her BP is ok today ,Pt denies any chest pain or headache .Pt has chronic fatigue. Pt does snore Pt is waiting for sleep study. Pt denies any other complaints HTN Pt has chronic H TN pt used to take bp meds 5 years ago but she just stop taking it on her own due to hair loss. Her BP remains high, Pt denies any chest pain or headache seizure1 Pt has absence s eizure, Pt takes lamictal ,Pt has nonspecific brain atrophy. Pt still having seizure sometimes at night and during the day. 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
--- OUTSIDE RECORDS SUMMARY | 2025-03-28 14:34 | XMS_ITS | Encounter Summary ---
Author Organization [facility] Address [address] [place] [address] Phone Care Team Providers Care Precision Assembler Name Role Phone Diomedes Seals MD Primary Care Provider [phone] Encounter Details Date Type Department Care Team (Late st Contact Info) Description 02/14/2025 Results Follow-Up [facility] Medicine Obstetrics and Gynecology [address] [facility] Outpatient Health 7th Floor [address] [place] [address] Perla Kwong NP [address] [address] [place] Pelvis Complete Social History [...] materials from doctor or pharmacy Never 12/21/2023 [facility] Utilities Answer Date Recorded In the [...] week 12/26/2023 How often do you attend [facility] or moravian services? Never 12/26/2023 Do you belong to any clubs o r organizations such as congregational groups, unions, fraternal or athletic groups, or [...] Date Recorded PHQ-2 Total Score 1 12/26/2023 [facility] [place] of Occupat ional Health - Occupational Stress [...] any time in the past 12 m [facility], were you homeless or living in a penitentiary (including now)? No 12/26/2023 Personal Safety Answer Date Recorded Have you ever been in or are you currently in a harmful physical or emotional relationship or is someone making you feel afraid or unsafe? Denies 10/06/2024 Comments No Sex and Gender Information Value Date Recorded Sex Assigned at Not on file Legal Sex Female 12:43 AM BUTTON SEWER Gender Identity Female 12/22/2023 9:56 AM CDT Sexual Orientation Straight 12/22/2023 9: 56 AM CDT documented as of this encounter Plan of Treatment Not on file documented as of this encounter Visit Diagnoses Not on filedocumented in this encounter Care Teams Precision Assembler Relationship Specialty Start Date End Date Diomedes Seals MD [address] [place] [address] PCP - General Family Medicine 12/28/23 documented as of this encounter
--- OUTSIDE RECORDS SUMMARY | 2025-03-28 14:34 | XMS_ITS | Clinical Summary ---
Author Organization [facility] Address [address] [place] [address] Care Team Providers Care Plant Buyer Name Role Phone Diomedes Seals MD Primary Care Provider + [phone] Allergies Active Allergy Reactions Criticality Noted Date [...] dispo -12/[address] scan with WV contrast 12/16 Starting clear liquids but continuing [...] identified at OSH on 12/04 -Transfer to [facility] for higher level of care with prior EGS admission 12/09-12/18 Pathology OSH 11/25 -Benign hypervascular ovarian cyst with adhesions Assessment & Plan (12/12/2023 12:17 PM CDT): -OSH OR 11/25, initially planned for elective surgery; c/b intraabdominal hemorrhage, OSH General Surgery c/s intra-op > Op notes obtained and uploaded in Media -Post op course c/b abscess c/f ECF -Transfer to [facility] for higher level of care - [...] IV cefe/flagyl, CT AP with IV and WV contrast to rule out missed colon injury, LEDs and lower extremity arterial doppler 12/11 LE US studies unrevealing. CT A/P with WV contrast pending. No nausea, continue IV antibiotics. [...] check. She would like to follow with [facility] IR and General surgery. IR drain [...] EGS and IR follow up on 12/31. [facility] Imagin/23 LE Arterial Dopplers - bilateral [...] Complete spontaneous w/o complication;Recorded Elsewhere: No Location: [facility] Source: EHR Chronic: N Practice ID: [id number] Billable Time: 04:30:00 PM Pelvic and perineal pain 01/12/2018 Overview (09/30/2024): Pelvic pain;Recorded Elsewhere: No Location: [facility] Source: EHR Chronic: N Practice ID: [id number] Billable Time: 11:00:00 AM Acute vaginitis 01/01/2016 Overview (09/30/2024): Acute vulvovaginitis;Recorded Elsewhere: No Location: [facility] Source: EHR Chronic: N Practice ID: [id number] Billable Time: 11:30:00 AM Female genital symptoms 11/02/2013 Overview (09/30/2024): Unspecified symptom associated with female genital organs;Recorded Elsewhere: No Location: [facility] Source: EHR Chronic: N Practice ID: [id number] Billable Time: 08:30:00 AM Headache 11/02/2013 Overview (09/30/2024): Headache;Recorded Elsewhere: No Location: [facility] Source: EHR Chronic: N Practice ID: [id number] Billable Time: 08:30:00 AM Hematochezia 11/02/2013 Overview (09/30/2024): Blood in stool;Recorded Elsewhere: No Location: [facility] Source: EHR Chronic: N Practice ID: [id number] Billable Time: 08:30:00 AM Sleep apnea 06/17/2012 Nontoxic single thyroid nodule 06/17/2012 Hirsutism 06/17/2012 Abdominal pain 12/17/2011 Overview (09/30/2024): Abdominal pain, other specified site;Recorded Elsewhere: No Location: [facility] Source: EHR Chronic: N Practice ID: [id number] Billable Time: 03:00:00 PM Goiter 09/11/2011 Overview (09/30/2024): Goiter, unspecified;Recorded Elsewhere: No Location: [facility] Source: EHR Chronic: N Practice ID: [id number] Billable Time: 09:15:00 AM Increased frequency of urination 09/11/2011 Overview (09/30/2024): Urinary frequency;Recorded Elsewhere: No Location: [facility] Source: EHR Chronic: N Practice ID: [...] updated 12/12/23) Primary Care Provider: Rossana Ireland, AGRICULTURE MANAGER Placement or Home Health Company: N/A [...] Type Department Care Team Description 03/11/2025 Telephone [facility] Medicine Surgery [address] [facility] 12th [place] [address] [place] [address] Joyce Zamora CMA 02/14/2025 10:54 AM CDT - 02/14/2025 11:59 PM CDT Hospital Encounter [facility] - Ultrasound [address] [facility], 7th Floor, [address] [facility] [address] Cyst of right ovary Discharge Disposition: Discharge to home or self care 02/14/2025 Results Follow-Up [facility] Medicine Obstetrics and Gynecology [address] [facility] 7th Floor [address] [place] [address] Perla Kwong NP US Pelvis Complete 01/28/2025 Orders Only [facility] Medicine Obstetrics and Gynecology [address] [facility] 7th Floor [address] [place] [address] Dorie Jordan Rai, NP Cyst of right ovary (Primary Dx) 01/25/2025 11:00 AM CDT Office Visit [facility] Medicine Surgery [address] [facility] 12th [place] [address] [place] [address] Attila Foster MD Infected hernioplasty mesh, subsequent encounter (Primary Dx) 01/25/2025 9:26 AM CDT - 01/25/2025 11:59 PM CDT Hospital Encounter [facility] [address] [place] [address] Infected hernioplasty mesh, initial encounter Discharge Disposition: [...] materials from doctor or pharmacy Never 12/21/2023 [facility] Utilities Answer Date Recorded In the past 12 months has th e [employer], gas, oil, or water [employer] threatened to shut off services in your [...] often do you attend chur ch or tenriism services? Never 12/26/2023 Do you belong to any clubs o r organizations such as mandaeism groups, unions, fraternal or athletic groups, or [...] Date Recorded PHQ-2 Total Score 1 12/26/2023 [facility] of Occupat ional Health - Occupational Stress [...] any time in the past 12 m [facility], were you homeless or living in a [place] health care facility (including now)? No 12/26/2023 Personal Safety Answer Date Recorded Have you ever been in or are you currently in a harmful physical or emotional relationship or is someone making you feel afraid or unsafe? Denies 10/06/2024 Comments No Sex and Gender Information Value Date Recorded Sex Assigned at Not on file Legal Sex Female 12:43 AM OPTICAL GOODS DRILL OPERATOR Gender Identity Female 12/22/2023 9:56 AM [...] Insurance [facility] CHOICE PLUS IDPA [facility] CHOICE PLUS IDHI [facility] Advance Directives For more information, please contact: [phone] * Full Code (Latest Code Status on [...] 9:24 PM 12/19/2023 10:20 PM Care Teams Plant Buyer Relationship Specialty Start Date End Date Diomedes Seals MD [address] [place] [address] PCP - General Family Medicine 12/28/23
--- OUTSIDE RECORDS SUMMARY | 2025-03-28 14:35 | XMS_ITS | Clinical Summary ---
Author Organization [facility] Address [address] [place] [address] Care Team Providers Care Vp Software Engineering Name Role Phone Diomedes Seals MD Primary Care Provider [phone] [facility],non-owned Affiliates and Associated Physician Practices is amultiple site organization consisting of ambulatory clinics and hospital sitesin [place], [place], [place] and [place]. This disclosure is being madepursuant to the Care Everywhere program and may not contain all information available regarding this patient. Last updated 18.[facility] Allergies Active Allergy Reactions Criticality Noted Date [...] on file Legal Sex Female 6:54 PM ARCHITECTURAL REPRESENTATIVE Gender Identity Not on file Sexual Orientation [...] SCDM series) 10/01/2006 LIPID TESTING 09/17/2016 09/18/2011 DEPRESSION SCREENING 07/21/2024 COVID-19 VACCINE (1 - 4-2 5 season) 2025 INFLUENZA VACCINE (#1) 2025 06/12/2012 ZOSTER VACCINE [...] Comments LIPID PROFILE Routine 09/18/2011 8:02 AM ARCHITECTURAL REPRESENTATIVE from Last 3 Months or Most Recently Relevant to Health Maintenance Results * (ABNORMAL) LIPID PROFILE (09/18/2011 8:02 AM ARCHITECTURAL REPRESENTATIVE) Cholesterol Total 176 125 - 200 mg/dL [facility] Comment: Test Performed at: [facility] [address] [place] [address] BINA LEVINE DO HDL 32(L) > OR [...] Venous blood specimen (specimen) 09/18/2011 8:02 AM ARCHITECTURAL REPRESENTATIVE 09/18/2011 8:03 AM ARCHITECTURAL REPRESENTATIVE Joe Gonzalez MD LAB - CHEMISTRY ORDERABLES Fin al Result [facility] [id number] from Last 3 Months or Most Recently Relevant to Health Maintenance Insurance MEDICAID - OUT OF STATE [facility] MEDICAID - [place] [facility] * Guarantor: MALISSA HERNANDEZI Account Type Relation to Patient Date of Phone Billing Address Personal/Family [address] [place] [address] SELF PAY NO INSURANCE Member Subscriber Plan / Payer (Ef fective for All Dates) Name:Alis Hernandez Member ID:Not on file Relation to Subscriber:Not on file Name:MALISSA HERNANDEZI Subscriber ID:Not on file Address: [address] [place] [address] Payer ID:Not on file Group ID:Not on file Type:Self Pay Address: [facility] * Guarantor: ALIS HERNANDEZ Account Type Relation to Patient Date of Phone Billing Address Personal/Family [address] [place], [place] [id number] SELF PAY NO INSURANCE Member Subscriber Plan / Payer (Ef fective for All Dates) Name:Alis Hernandez T Member ID:Not on file Relation to Subscriber:Not on file Name:ALIS HERNANDEZ Subscriber ID:Not on file Address: [address] [place] [address] Payer ID:Not on file Group ID:Not on file Type:Self Pay Address: [facility] * Guarantor: ALIS HERNANDEZ Account Type Relation to Patient Date of Phone Billing Address Personal/Family [address] [place] [address] SELF PAY NO INSURANCE Member Subscriber Plan / Payer (Ef fective for All Dates) Name:Alis Hernandez T Member ID:Not on file Relation to Subscriber:Not on file Name:ALIS HERNANDEZ Subscriber ID:Not on file Address: [address] [place], [place] [id number] Payer ID:Not on file Group ID:Not on file Type:Self Pay Address: [facility] Care Teams Vp Software Engineering Relationship Specialty Start Date End Date Diomedes Seals MD [address] [place] [address] PCP - General 06/20/22
[2025-03-28 15:19] LABS: Hemoglobin A1C 6.1 % (<5.7)
== END 2025-03-28 14:33 | disposition home or self-care (01) ==
LOC: ANHLAB 14:32
PROVIDERS: PCP Family Medicine; Visit Provider Nurse Practitioner Adult Health
DX: R73.09 Other abnormal glucose (principal)
CPT/HCPCS: 36415; 83036

== ENCOUNTER 2025-04-04 11:14 | Emergency (ER) | payer OTHER, SELFPAY ==
--- OUTSIDE RECORDS SUMMARY | 2019-12-14 05:46 | XMS_ITS | Continuity of Care Document ---
Author Organization [facility] Address [address] [place] [address] Phone Care Team Providers Care Hospice Volunteer Coordinator Name Role Phone Hema Arreola MD Unavailable [...] Diagnoses Date Provider Providers Copied on Encounter [facility], [address], [place], [address], [place] tel:[phone] [facility] No Information 0 Maxwell Garrido. [address], [place], [place], [address] , [place]. tel:[phone] OFFICE/OUTPA TIENT VISIT, EST [facility], [address], [place], [place], [address], [place] tel:[phone] [facility] HTN (chief complaint) hyponatrem ia (chief complaint) anxiety1 (chief complaint) sinus (chief complaint) sleep apnea1 (chief complaint) Sleep apneaEssential (primary) hypertensionHyponat remiaAbnormality of plasma proteinGeneralized Anxiety Disorder 0 Maxwell Garrido. [address], [place], [place], [address] , [place]. tel:[phone] [facility], [address], [place], [place], [address], [place] tel:[phone] [facility] protein1 (chief complaint) hyponatrem ia1 (chief complaint) HTN (chief complaint) anxiety1 (chief complaint) sinus1 (chief complaint) Sleep apneaEssential (primary) hypertensionHyponat remiaAbnormality of plasma protein 0 0 Maxwell Garrido. [address], [place], [place], [address] , [place]. tel:[phone] Referring Provider: Hema Arreola, [address], [place], [place], [address]. tel:[phone] PREV VISIT, EST, AGE 18-39 [facility], [address], [place], [place], [address], [place] tel:[phone] [facility] physical (chief complaint) Encntr for general adult medical exam w/o abnormal findings 0 Maxwell Garrido. [address], [place], [place], [address] , [place]. tel:[phone] Referring Provider: Hema Arreola [address], [place], [place], [address]. tel:[phone] OFFICE/OUTPA TIENT VISIT, EST [facility], [address], [place], [place], [address], [place] tel:[phone] [facility] HTN (chief complaint) sleep apnea1 (chief complaint) seizure1 (chief complaint) Body mass index (BMI) 38.0-38.9, adultSleep apneaEssential (primary) hypertensionEpileps yVentral hernia 9 Maxwell Garrido. [address], [place], [place], [address] , . tel:[phone] Referring Provider: Ge[address], [place], [place], [address]. tel:[phone] PREV VISIT, NEW, AGE 18-39 [facility], [address], [place], [place], [address], [place] tel:[phone] [facility] Physical (chief complaint) Encntr for general adult medical exam w/o abnormal findings 9 Maxwell Garrido. [address], [place], [place], [address] , . tel:[phone] Referring Provider: [address] [facility] [address], [place], [place], [address]. 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
--- NOTE | ~2025-04-04 | XR_ITS ---
EXAMINATION: XR chest 2V DATE: 04/04/2025 12:12 INDICATION: Chest tightness TECHNIQUE: PA and lateral views of the chest were obtained. COMPARISON: Chest radiograph dated 11/30/2023 FINDINGS: The lungs are now clear with no focal airspace opacities, pulmonary edema, pleural effusion or pneumothorax. The cardiomediastinal silhouette is normal. Visualized bones and soft tissues are unremarkable. IMPRESSION: 1. No acute cardiopulmonary disease. Reviewed, dictated and finalized at location A.
--- NOTE | ~2025-04-04 | US_ITS ---
EXAMINATION: US venous doppler LE RT DATE: 04/04/2025 13:21 INDICATION: Right lower limb pain and swelling TECHNIQUE: Grayscale ultrasound images without and with compression and Doppler ultrasound images of the right lower extremity veins were obtained. COMPARISON: None. FINDINGS: The visualized portions of right common femoral vein, profunda (deep) femoral vein, femoral vein, popliteal vein, peroneal trunk, posterior tibial veins, peroneal veins, gastrocnemius vein and greater saphenous vein outflow are patent. IMPRESSION: 1. No deep venous thrombosis in the right lower limb. Reviewed, dictated and finalized at location A.
--- NOTE | ~2025-04-04 | US_ITS ---
EXAMINATION: US venous doppler [facility] DATE: 04/04/2025 13:21 INDICATION: Left upper limb swelling TECHNIQUE: Grayscale images without and with compression and Doppler images of the bilateral upper extremity veins were obtained. COMPARISON: None. FINDINGS: The left internal jugular vein, subclavian vein, axillary vein, brachial vein, basilic vein, cephalic vein, radial vein, and ulnar vein are patent. IMPRESSION: 1. Patent left upper extremity veins. No evidence of venous thrombosis. Reviewed, dictated and finalized at location A.
--- NOTE | 2025-04-04 11:24 | ECG_ITS ---
Test Date: 2025-04-04 11:41:04 Measurements Intervals [place] Rate: 99 P: 64 SD: 164 QRS: 30 QRSD: 74 T: 40 QT: 337 QTc: 433 Interpretive Statements SINUS RHYTHM WITH SINUS ARRHYTHMIA OTHERWISE NORMAL ECG Compared to ECG 02/04/2025 15:08:27 No significant changes Electronically Signed On 04-04-2025 12:55:06 CDT by Mazin Daily M.D.
[2025-04-04 11:28] VITALS: BP 162/94; PULSE 101; RESP 15; TEMP 36.8; O2SAT 100
[2025-04-04 12:05] LABS: Hematocrit 35.7 % (37.0-47.0); Hemoglobin 12.2 g/dL (12.0-15.0); Immature Granulocyte Percent A 0.4 % (0-0.5); Lymphocytes Absolute Auto 1.65 K/mm3 (0.9-3.2); Mean Corpuscular HGB Conc 34.2 g/dl (32-36); Mean Corpuscular Hemoglobin 30.2 pg (26-34); Mean Corpuscular Volume 88.4 fl (80-100); Nucleated Red Blood Cells Absolute Auto 0.000 K/mm3 (0.0-0.012); Nucleated Red Blood Cells Perc 0.0 % (0.0-0.2); Platelet Count Result 327 k/mm3 (150-375); Red Blood Count 4.04 M/mm3 (4.2-5.4); White Blood Count 9.2 K/mm3 (4.5-10.0)
[2025-04-04 12:16] LABS: INR 1.1; Prothrombin Time 14.1 Seconds (11.1-14.7)
[2025-04-04 12:17] LABS: Partial Thromboplastin Time 25.5 Seconds (22.3-36.8)
[2025-04-04 12:23] LABS: Alanine Aminotransferase 24 U/L (6-35); Albumin Level 4.2 g/dL (3.5-5.1); Alkaline Phosphatase 124 U/L (38-126); Anion Gap 9 mmol/L (4-12); Aspartate Amino Transferase 29 U/L (14-36); Bilirubin,Total 0.4 mg/dL (0.2-1.3); Blood Urea Nitrogen 9 mg/dL (7-17); Calcium 8.4 mg/dL (8.4-10.2); Carbon Dioxide 23 mmol/L (22-30); Chloride 105 mmol/L (98-107); Estimated CRCL calculation 112 ml/min; Estimated Glomerular Filt Rate > 60; Glucose 119 mg/dL (65-110); Lipase 54 U/L (23-300); Potassium 3.6 mmol/L (3.4-5.0); Sodium 137 mmol/L (137-145); Total Protein 7.6 g/dL (6.3-8.2)
[2025-04-04 12:30] LABS: Troponin I < 0.012 ng/mL (0.000-0.034)
[2025-04-04] MEDS: BELLADONNA ALK/PHENOB ELIX 10 ML, MAG HYDROX/ALUMINUM HYD/SIMETH 30 ML, LIDOCAINE 2% VI... PO (12:52)
--- OUTSIDE RECORDS SUMMARY | 2025-04-04 13:17 | XMS_ITS | Encounter Summary ---
Author Organization [facility] Address [address] [place] [address] Phone Care Team Providers Care Neurology Stroke Physician Name Role Phone Diomedes Seals MD Primary Care Provider [phone] Encounter Details Date Type Department Care Team (Late st Contact Info) Description 02/14/2025 Results Follow-Up [facility] Medicine Obstetrics and Gynecology [address] [facility] Outpatient Health 7th Floor [address] [place] [address] Perla Kwong NP [address] [address] [place] Pelvis Complete Social History [...] materials from doctor or pharmacy Never 12/21/2023 [facility] Utilities Answer Date Recorded In the [...] week 12/26/2023 How often do you attend [facility] or hinduism services? Never 12/26/2023 Do you belong to any clubs o r organizations such as moravian groups, unions, fraternal or athletic groups, or [...] Date Recorded PHQ-2 Total Score 1 12/26/2023 [facility] [place] of Occupat ional Health - Occupational Stress [...] any time in the past 12 m [facility], were you homeless or living in a intermediate (including now)? No 12/26/2023 Personal Safety Answer Date Recorded Have you ever been in or are you currently in a harmful physical or emotional relationship or is someone making you feel afraid or unsafe? Denies 10/06/2024 Comments No Sex and Gender Information Value Date Recorded Sex Assigned at Not on file Legal Sex Female 12:43 AM TRAUMA PROGRAM MANAGER Gender Identity Female 12/22/2023 9:56 AM CDT Sexual Orientation Straight 12/22/2023 9: 56 AM CDT documented as of this encounter Plan of Treatment Not on file documented as of this encounter Visit Diagnoses Not on filedocumented in this encounter Care Teams Neurology Stroke Physician Relationship Specialty Start Date End Date Diomedes Seals MD [address] [place] [address] PCP - General Family Medicine 12/28/23 documented as of this encounter
--- OUTSIDE RECORDS SUMMARY | 2025-04-04 13:17 | XMS_ITS | Clinical Summary ---
Author Organization [facility] Address [address] [place] [address] Care Team Providers Care Stereoptician Name Role Phone Diomedes Seals MD Primary Care Provider [phone] Allergies Active Allergy Reactions Criticality Noted Date [...] identified at OSH on 12/04 -Transfer to [facility] for higher level of care with prior EGS admission 12/09-12/18 Pathology OSH 11/25 -Benign hypervascular ovarian cyst with adhesions Assessment & Plan (12/12/2023 12:17 PM CDT): -OSH OR 11/25, initially planned for elective surgery; c/b intraabdominal hemorrhage, OSH General Surgery c/s intra-op > Op notes obtained and uploaded in Media -Post op course c/b abscess c/f ECF -Transfer to [facility] for higher level of care [...] check. She would like to follow with [facility] IR and General surgery. IR [...] EGS and IR follow up on 12/31. [facility] Imagin/23 LE Arterial Dopplers - [...] Complete spontaneous w/o complication;Recorded Elsewhere: No Location: [facility] Source: EHR Chronic: N Practice ID: [id number] Billable Time: 04:30:00 PM Pelvic and perineal pain 01/12/2018 Overview (09/30/2024): Pelvic pain;Recorded Elsewhere: No Location: [facility] Source: EHR Chronic: N Practice ID: [id number] Billable Time: 11:00:00 AM Acute vaginitis 01/01/2016 Overview (09/30/2024): Acute vulvovaginitis;Recorded Elsewhere: No Location: [facility] Source: EHR Chronic: N Practice ID: [id number] Billable Time: 11:30:00 AM Female genital symptoms 11/02/2013 Overview (09/30/2024): Unspecified symptom associated with female genital organs;Recorded Elsewhere: No Location: [facility] Source: EHR Chronic: N Practice ID: [id number] Billable Time: 08:30:00 AM Headache 11/02/2013 Overview (09/30/2024): Headache;Recorded Elsewhere: No Location: [facility] Source: EHR Chronic: N Practice ID: [id number] Billable Time: 08:30:00 AM Hematochezia 11/02/2013 Overview (09/30/2024): Blood in stool;Recorded Elsewhere: No Location: [facility] Source: EHR Chronic: N Practice ID: [id number] Billable Time: 08:30:00 AM Sleep apnea 06/17/2012 Nontoxic single thyroid nodule 06/17/2012 Hirsutism 06/17/2012 Abdominal pain 12/17/2011 Overview (09/30/2024): Abdominal pain, other specified site;Recorded Elsewhere: No Location: [facility] Source: EHR Chronic: N Practice ID: [id number] Billable Time: 03:00:00 PM Goiter 09/11/2011 Overview (09/30/2024): Goiter, unspecified;Recorded Elsewhere: No Location: [facility] Source: EHR Chronic: N Practice ID: [id number] Billable Time: 09:15:00 AM Increased frequency of urination 09/11/2011 Overview (09/30/2024): Urinary frequency;Recorded Elsewhere: No Location: [facility] Source: EHR Chronic: N Practice ID: [id number] [...] updated 12/12/23) Primary Care Provider: Rossana Ireland, EAP CLINICIAN Placement or Home Health Company: N/A Current [...] Type Department Care Team Description 03/11/2025 Telephone [facility] Medicine Surgery [address] [facility] 12th [place] [address] [place] [address] Joyce Zamora CMA 02/14/2025 10:54 AM CDT - 02/14/2025 11:59 PM CDT Hospital Encounter [facility] Outpatient [facility] - Ultrasound [address] [facility], 7th Floor, [address] [facility] [place] [address] Cyst of right ovary Discharge Disposition: Discharge to home or self care 02/14/2025 Results Follow-Up [facility] Medicine Obstetrics and Gynecology [address] [facility] Health 7th Floor [address] [place] [address] Perla Kwong NP US Pelvis Complete 01/28/2025 Orders Only [facility] Medicine Obstetrics and Gynecology [address] [facility] 7th Floor [address] [place] [address] Dorie Jordan Rai, NP Cyst of right ovary (Primary Dx) 01/25/2025 11:00 AM CDT Office Visit [facility] Medicine Surgery [address] [facility] 12th [place] [address] [place] [address] Attila Foster MD Infected hernioplasty mesh, subsequent encounter (Primary Dx) 01/25/2025 9:26 AM CDT - 01/25/2025 11:59 PM CDT Hospital Encounter [facility] [address] [place] [address] Infected hernioplasty mesh, initial encounter Discharge Disposition: [...] materials from doctor or pharmacy Never 12/21/2023 [facility] Utilities Answer Date Recorded In the past 12 months has th e [employer], gas, oil, or water [employer] threatened to shut off services in your [...] often do you attend chur ch or mormonism services? Never 12/26/2023 Do you belong to any clubs o r organizations such as buddhism groups, unions, fraternal or athletic groups, or [...] Date Recorded PHQ-2 Total Score 1 12/26/2023 [facility] [place] of Occupat ional Health - Occupational Stress [...] any time in the past 12 m [facility], were you homeless or living in a care home (including now)? No 12/26/2023 Personal Safety Answer Date Recorded Have you ever been in or are you currently in a harmful physical or emotional relationship or is someone making you feel afraid or unsafe? Denies 10/06/2024 Comments No Sex and Gender Information Value Date Recorded Sex Assigned at Not on file Legal Sex Female 12:43 AM DIRECTOR FINANCIAL SYSTEMS Gender Identity Female 12/22/2023 9:56 AM CDT [...] nal Result from Last 3 Months Insurance [facility] CHO[facility] PLUS IDPA [facility] CHO[facility] PLUS [employer]CA [facility] [place] [address] [facility] Advance Directives For more information, please contact: [phone] * Full Code (Latest Code Status on [...] 9:24 PM 12/19/2023 10:20 PM Care Teams Stereoptician Relationship Specialty Start Date End Date Diomedes Seals MD [address] [place] [address] PCP - General Family Medicine 12/28/23
--- OUTSIDE RECORDS SUMMARY | 2025-04-04 13:17 | XMS_ITS | Clinical Summary ---
Author Organization [facility] Address [address] [facility] [place] [address] Care Team Providers Care Cement And Concrete Plant Worker Name Role Phone Diomedes Seals MD Primary Care Provider [phone] Source Comments [facility],non-owned Affiliates and Associated Physician Practices is amultiple site organization consisting of ambulatory clinics and hospital sitesin [place], [place], [place] and [place]. This disclosure is being madepursuant to the Care Everywhere program and may not contain all information available regarding this patient. Last updated 18.[facility] Allergies Active Allergy Reactions Criticality Noted Date [...] on file Legal Sex Female 6:54 PM PANTRY CHEF Gender Identity Not on file Sexual Orientation [...] Comments LIPID PROFILE Routine 09/18/2011 8:02 AM PANTRY CHEF from Last 3 Months or Most Recently Relevant to Health Maintenance Results * (ABNORMAL) LIPID PROFILE (09/18/2011 8:02 AM PANTRY CHEF) Cholesterol Total 176 125 - 200 mg/dL [facility]) Comment: Test Performed at: [facility] [address] [place] [address] BINA LEVINE DO HDL 32(L) > OR [...] Venous blood specimen (specimen) 09/18/2011 8:02 AM PANTRY CHEF 09/18/2011 8:03 AM PANTRY CHEF Joe Gonzalez MD LAB - CHEMISTRY ORDERABLES Fin al Result [facility] [phone] from Last 3 Months or Most Recently Relevant to Health Maintenance Insurance MEDICAID - OUT OF STATE [facility] MEDICAID - [place] [facility] * Guarantor: MALISSA HERNANDEZI Account Type Relation to Patient Date of Phone Billing Address Personal/Family [address] [place] [address] SELF PAY NO INSURANCE Member Subscriber Plan / Payer (Ef fective for All Dates) Name:Alis Hernandez Member ID:Not on file Relation to Subscriber:Not on file Name:MALISSA HERNANDEZI Subscriber ID:Not on file Address: [address] [place] [address] Payer ID:Not on file Group ID:Not on file Type:Self Pay Address: [facility] * Guarantor: ALIS HERNANDEZ Account Type Relation to Patient Date of Phone Billing Address Personal/Family [address] [place], [place] [id number] SELF PAY NO INSURANCE Member Subscriber Plan / Payer (Ef fective for All Dates) Name:Alis Hernandez T Member ID:Not on file Relation to Subscriber:Not on file Name:ALIS HERNANDEZ Subscriber ID:Not on file Address: [address] [place] [address] Payer ID:Not on file Group ID:Not on file Type:Self Pay Address: [facility] * Guarantor: ALIS HERNANDEZ Account Type Relation to Patient Date of Phone Billing Address Personal/Family [address] [place] [address] SELF PAY NO INSURANCE Member Subscriber Plan / Payer (Ef fective for All Dates) Name:Alis Hernandez T Member ID:Not on file Relation to Subscriber:Not on file Name:ALIS HERNANDEZ Subscriber ID:Not on file Address: [address] [place], [place] [id number] Payer ID:Not on file Group ID:Not on file Type:Self Pay Address: [facility] Care Teams Cement And Concrete Plant Worker Relationship Specialty Start Date End Date Diomedes Seals MD [address] [place] [address] PCP - General 06/20/22
[2025-04-04 13:44] VITALS: BP 138/88; PULSE 99; RESP 20; O2SAT 96
--- OUTSIDE RECORDS SUMMARY | 2025-04-04 14:18 | XMS_ITS | Encounter Summary ---
Author Organization [facility] Address [address] [place] [address] Phone Care Team Providers Care Sales Service Professional Name Role Phone Diomedes Seals MD Primary Care Provider [phone] Encounter Details Date Type Department Care Team (Late st Contact Info) Description 02/14/2025 Results Follow-Up [facility] Medicine Obstetrics and Gynecology [address] [facility] Outpatient Health 7th Floor [address] [place] [address] Perla Kwong NP [address] [address] [place] Pelvis Complete Social History [...] materials from doctor or pharmacy Never 12/21/2023 [facility] Utilities Answer Date Recorded In the [...] week 12/26/2023 How often do you attend [facility] or rastafarian services? Never 12/26/2023 Do you belong to any clubs o r organizations such as gnosticist groups, unions, fraternal or athletic groups, or [...] Date Recorded PHQ-2 Total Score 1 12/26/2023 [facility] of Occupat ional Health - Occupational Stress [...] any time in the past 12 m [facility], were you homeless or living in a [...] on file Legal Sex Female 12:43 AM NETWORK OPERATIONS LEAD Gender Identity Female 12/22/2023 9:56 AM CDT Sexual Orientation Straight 12/22/2023 9: 56 AM CDT documented as of this encounter Plan of Treatment Not on file documented as of this encounter Visit Diagnoses Not on filedocumented in this encounter Care Teams Sales Service Professional Relationship Specialty Start Date End Date Diomedes Seals MD [address] [place] [address] PCP - General Family Medicine 12/28/23 documented as of this encounter
--- OUTSIDE RECORDS SUMMARY | 2025-04-04 14:18 | XMS_ITS | Clinical Summary ---
Author Organization [facility] [employer] Address [address] [facility] [place] [address] Care Team Providers Care Equipment Monitor Phototypesetting Name Role Phone Diomedes Seals MD Primary Care Provider [phone] Source Comments [facility],non-owned Affiliates and Associated Physician Practices is amultiple site organization consisting of ambulatory clinics and hospital sitesin [place], [place], [place] and [place]. This disclosure is being madepursuant to the Care Everywhere program and may not contain all information available regarding this patient. Last updated 18.[facility] [employer] [facility] Allergies Active Allergy Reactions Criticality Noted Date [...] on file Legal Sex Female 6:54 PM IMMIGRATION CASE MANAGER Gender Identity Not on file Sexual Orientation [...] Comments LIPID PROFILE Routine 09/18/2011 8:02 AM IMMIGRATION CASE MANAGER from Last 3 Months or Most Recently Relevant to Health Maintenance Results * (ABNORMAL) LIPID PROFILE (09/18/2011 8:02 AM IMMIGRATION CASE MANAGER) Cholesterol Total 176 125 - 200 mg/dL [facility] Comment: Test Performed at: [facility] [address] [place] [address] BINA LEVINE DO HDL 32(L) > OR [...] Venous blood specimen (specimen) 09/18/2011 8:02 AM IMMIGRATION CASE MANAGER 09/18/2011 8:03 AM IMMIGRATION CASE MANAGER Joe Gonzalez MD LAB - CHEMISTRY ORDERABLES Fin al Result [facility] [id number] from Last 3 Months or Most Recently Relevant to Health Maintenance Insurance MEDICAID - OUT OF STATE [facility] [place] - [place] [facility] * Guarantor: MALISSA HERNANDEZI Account Type Relation to Patient Date of Phone Billing Address Personal/Family [address] [place] [address] SELF PAY NO INSURANCE Member Subscriber Plan / Payer (Ef fective for All Dates) Name:Alis Hernandez Member ID:Not on file Relation to Subscriber:Not on file Name:MALISSA HERNANDEZI Subscriber ID:Not on file Address: [address] [place] [address] Payer ID:Not on file Group ID:Not on file Type:Self Pay Address: [facility] * Guarantor: ALIS HERNANDEZ Account Type Relation to Patient Date of Phone Billing Address Personal/Family [address] [place], [place] [phone] SELF PAY NO INSURANCE Member Subscriber Plan / Payer (Ef fective for All Dates) Name:Alis Hernandez T Member ID:Not on file Relation to Subscriber:Not on file Name:ALIS HERNANDEZ Subscriber ID:Not on file Address: [address] [place] [address] Payer ID:Not on file Group ID:Not on file Type:Self Pay Address: [facility] * Guarantor: ALIS HERNANDEZ Account Type Relation to Patient Date of Phone Billing Address Personal/Family [address] [place] [address] SELF PAY NO INSURANCE Member Subscriber Plan / Payer (Ef fective for All Dates) Name:Alis Hernandez T Member ID:Not on file Relation to Subscriber:Not on file Name:ALIS HERNANDEZ Subscriber ID:Not on file Address: [address] [place], [place] [phone] Payer ID:Not on file Group ID:Not on file Type:Self Pay Address: [facility] Care Teams Equipment Monitor Phototypesetting Relationship Specialty Start Date End Date Diomedes Seals MD [address] [place] [address] PCP - General 06/20/22
--- OUTSIDE RECORDS SUMMARY | 2025-04-04 14:18 | XMS_ITS | Clinical Summary ---
Author Organization [facility] Address [address] [place] [address] Care Team Providers Care Bore Mill Operator For Plastic Name Role Phone Diomedes Seals MD Primary Care Provider [phone] Allergies Active Allergy Reactions Criticality Noted Date [...] dispo -12/[address] scan with NJ contrast 12/16 Starting clear liquids but continuing [...] identified at OSH on 12/04 -Transfer to [facility] for higher level of care with prior EGS admission 12/09-12/18 Pathology OSH 11/25 -Benign hypervascular ovarian cyst with adhesions Assessment & Plan (12/12/2023 12:17 PM CDT): -OSH OR 11/25, initially planned for elective surgery; c/b intraabdominal hemorrhage, OSH General Surgery c/s intra-op > Op notes obtained and uploaded in Media -Post op course c/b abscess c/f [facility]CF -Transfer to [facility] for higher level of care - [...] IV cefe/flagyl, CT AP with IV and NJ contrast to rule out missed colon injury, LEDs and lower extremity arterial doppler 12/11 LE US studies unrevealing. CT A/P with NJ contrast pending. No nausea, continue IV antibiotics. [...] check. She would like to follow with [facility] IR and General surgery. IR drain [...] EGS and IR follow up on 12/31. [facility] Imagin/23 LE Arterial Dopplers - bilateral [...] Complete spontaneous w/o complication;Recorded Elsewhere: No Location: [facility] Source: EHR Chronic: N Practice ID: [id number] Billable Time: 04:30:00 PM Pelvic and perineal pain 01/12/2018 Overview (09/30/2024): Pelvic pain;Recorded Elsewhere: No Location: [facility] Source: EHR Chronic: N Practice ID: [id number] Billable Time: 11:00:00 AM Acute vaginitis 01/01/2016 Overview (09/30/2024): Acute vulvovaginitis;Recorded Elsewhere: No Location: [facility] Source: EHR Chronic: N Practice ID: [id number] Billable Time: 11:30:00 AM Female genital symptoms 11/02/2013 Overview (09/30/2024): Unspecified symptom associated with female genital organs;Recorded Elsewhere: No Location: [facility] Source: EHR Chronic: N Practice ID: [id number] Billable Time: 08:30:00 AM Headache 11/02/2013 Overview (09/30/2024): Headache;Recorded Elsewhere: No Location: [facility] Source: EHR Chronic: N Practice ID: [id number] Billable Time: 08:30:00 AM Hematochezia 11/02/2013 Overview (09/30/2024): Blood in stool;Recorded Elsewhere: No Location: [facility] Source: EHR Chronic: N Practice ID: [id number] Billable Time: 08:30:00 AM Sleep apnea 06/17/2012 Nontoxic single thyroid nodule 06/17/2012 Hirsutism 06/17/2012 Abdominal pain 12/17/2011 Overview (09/30/2024): Abdominal pain, other specified site;Recorded Elsewhere: No Location: [facility] Source: EHR Chronic: N Practice ID: [id number] Billable Time: 03:00:00 PM Goiter 09/11/2011 Overview (09/30/2024): Goiter, unspecified;Recorded Elsewhere: No Location: [facility] Source: EHR Chronic: N Practice ID: [id number] Billable Time: 09:15:00 AM Increased frequency of urination 09/11/2011 Overview (09/30/2024): Urinary frequency;Recorded Elsewhere: No Location: [facility] Source: EHR Chronic: N Practice ID: [id number] [...] updated 12/12/23) Primary Care Provider: Rossana Ireland, TRESTLE BUILDER Placement or Home Health Company: N/A Current [...] Type Department Care Team Description 03/11/2025 Telephone [facility] Surgery [address] [facility] Advanced Medicine 12th [place] [address] [place] [address] Joyce Zamora CMA 02/14/2025 10:54 AM CDT - 02/14/2025 11:59 PM CDT Hospital Encounter [facility] Outpatient [facility] - Ultrasound [address] [facility], 7th Floor, [address] [facility] [place] [address] Cyst of right ovary Discharge Disposition: Discharge to home or self care 02/14/2025 Results Follow-Up [facility] Medicine Obstetrics and Gynecology [address] [facility] Outpatient Health 7th Floor [address] [place] [address] Perla Kwong NP US Pelvis Complete 01/28/2025 Orders Only [facility] Medicine Obstetrics and Gynecology [address] [facility] [place] [address] [place] [phone] Dorie Jordan Rai, NP Cyst of right ovary (Primary Dx) 01/25/2025 11:00 AM CDT Office Visit [facility] Medicine Surgery [address] [facility] 12th [place] [address] [place] [address] Attila Foster MD Infected hernioplasty mesh, subsequent encounter (Primary Dx) 01/25/2025 9:26 AM CDT - 01/25/2025 11:59 PM CDT Hospital Encounter [facility] [address] [place] [address] Infected hernioplasty mesh, initial encounter Discharge Disposition: [...] materials from doctor or pharmacy Never 12/21/2023 [facility] Utilities Answer Date Recorded In the past 12 months has th e [employer], gas, oil, or water Compliance 11 threatened to shut off services in your [...] often do you attend chur ch or roman catholic services? 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 Gender Identity Female 12/22/2023 9:56 AM CDT [...] nal Result from Last 3 Months Insurance [facility] CHO[facility] PLUS IDPA [facility] [place] [address] [place] [address] [facility] [address] [facility] Advance Directives For more information, please contact: [phone] * Full Code (Latest Code Status on [...] 9:24 PM 12/19/2023 10:20 PM Care Teams Bore Mill Operator For Plastic Relationship Specialty Start Date End Date Diomedes Seals MD [address] [place] [address] PCP - General Family Medicine 12/28/23
--- NOTE | 2025-04-04 14:30 | ED_ITS ---
HPI - General Adult General Chief complaint: Extremity Problem,Nontraumatic Stated complaint: arm pain, leg pain Time Seen by Provider: 04/04/25 12:01 History of Present Illness HPI narrative: Patient is a 44-year-old female who presents ER with multiple complaints. Main concerns or left arm pain and right leg pain as well as edema and cramping in the affected extremities. No known injury. Worsening over last week. Has history of DVT/PE. No fevers or chills or sweats. No immobility. She is not on anticoagulation. She has also had some mild tightness in her chest and epigastric discomfort recently. No hemoptysis. No dyspnea on exertion. Related Data Home Medications ?Medication ?Instructions ?Recorded ?Confirmed ?Last Taken ?Type cetirizine 10 mg capsule (Zyrtec) 10 mg PO HS PRN Lux rgy Symptoms 07/10/22 02/07/25 Unknown History multivitamin 1 tablet PO DAILY 04/15/23 0 02/07/25 Unknown History Allergies Allergy/AdvReac Type Severity Reaction Status Date / Time wheat Allergy Severe Abdominal Verified 04/04/25 11:34 Pain iodine Allergy Intermediate sneezing, Verified 04/04/25 11:34 COUGH iohexol (From contrast - CT, Allergy Intermediate SNEEZING, Verified 04/04/25 11:34 X-RAY) COUGH Penicillins Allergy Intermediate Rash Verified 04/04/25 11:34 shrimp Allergy Intermediate Rash Verified 04/04/25 11:34 gluten Allergy Mild Abdominal Verified 04/04/25 11:34 Pain irbesartan AdvReac Intermediate hair loss Verified 04/04/25 11:34 Review of Systems 2 Review of Systems: All systems reviewed & are unremarkable except as noted in HPI and below Constitutional: Constitutional: Reports no additional constitutional complaints ENT: Reports system reviewed and no additional complaints, except as documented Cardiovascular: Cardiovascular: Reports no additional cardiovascular complaints Respiratory: Respiratory: Reports no additional respiratory complaints Gastrointestinal: Gastrointestinal: Reports no additional gastrointestinal complaints Musculoskeletal: Musculoskeletal: Reports no additional musculoskeletal complaints [facility] Past Medical History Medical History (Updated 04/04/25 @ 14:33 by Jerson James MD) Elevated glucose Abnormal mammogram Low T4 Intra-abdominal abscess Postoperative ileus History of diverticulitis Rectal Hemorrhage LUQ pain Degenerative joint disease of cervical and lumbar spine Panic attack Cerebral atrophy Hx pulmonary embolism Pulmonary embolism Incisional hernia Hyperlipidemia Anxiety Blood transfusion abn reaction or complication, no procedure mishap Abdominal pain BMI greater than 30 Numbness of face Left facial numbness Rash D-dimer, elevated Acute bacterial sinusitis Abnormal endoscopy of upper gastrointestinal tract Shrimp allergy Depression Chronic back pain Arthritis Ovarian cyst Uterine fibroid Hemorrhoids Gallbladder disease Diverticulosis Diverticulitis Sleep apnea Hypertension Chronic headaches Seizures absent seizure Surgical History Surgical History H/O oophorectomy S/P laparoscopic-assisted sigmoidectomy H/O abdominal surgery History of hernia repair incisional hernia with defect measuring approximately 9 cm, lateralization of the rectus muscles on 04/21/23 PDC History of incisional hernia repair Hx of colectomy AMBER Sigmoid colectomy on 06/05/22 H/O endoscopy Previous section H/O dilation and curettage Hx of cholecystectomy History of appendectomy H/O vein stripping Family History Family History Father Heart disease Hypertension Diabetes mellitus Mother Diabetes mellitus Heart disease Sibling No problems noted. Grandparent Breast cancer Other Cancer Cerebrovascular accident Social History Social History Smoking packs per day: 1 Smoking cigarettes per day: 20.0 Years smoked: 3 Smoking pack-years: 3.00 Smoking status: Current some day smoker Tobacco type: e-cigarettes/vaping Second hand tobacco smoke exposure: Yes (SPOUSE) Additional smoking assessment comments: started vaping 2020 Alcohol intake: current Drinks per week: 1 Alcohol use details: OCAASIONALLY Substance use: never Substance use type: does not use Do You Feel Safe in your Home?: Yes Lack of Transportation: No Lack of Food: Never True Current Housing: I Have Housing Concerned About Future Housing: No Difficulty Paying Gas/Electric Bills: No Difficulty Paying for Meds: No Currently Unemployed: No Education: High School Diploma/GED Difficulty w/ Childcare or Family Care: No Living arrangements: with family Additional living arrangements comments: HUSB AND CHILDREN Occupation/Education: occupation 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 HEAD: Normocephalic, atraumatic. ENT: Mucous membranes moist. CHEST: Clear to auscultation. No respiratory distress. HEART: Regular rate and rhythm. Normal peripheral pulses. ABDOMEN: Soft, nontender, nondistended. EXTREMITIES: Normal range of motion. No edema. SKIN: Warm, dry, no rash. NEURO: Alert and oriented x3. PSYCH: Normal mood and affect. Course Course Emergency Course: Patient informed of lab and imaging results. No abnormalities. Appropriate for discharge home. Recommend scheduled anti-inflammatories for her arm and leg discomfort. Vital Signs Vital signs: Vital Signs Temperature 98.3 F 04/04/25 11:28 Pulse Rate 101 H 04/04/25 11:28 Respiratory Rate 04/04/25 11:28 Blood Pressure 162/94 H 04/04/25 11:28 Pulse Oximetry 100 04/04/25 11:28 Oxygen Delivery Room Air 04/04/25 11:28 Temperature 98.3 F 04/04/25 11:28 Pulse Rate 99 04/04/25 13:44 Respiratory Rate 04/04/25 13:44 Blood Pressure 138/88 04/04/25 13:44 Pulse Oximetry 96 04/04/25 13:44 Oxygen Delivery Room Air 04/04/25 11:28 Medical Decision Making Vital Signs Vital Signs: Vital Signs Temperature 98.3 F 04/04/25 11:28 Pulse Rate 101 H 04/04/25 11:28 Respiratory Rate 04/04/25 11:28 Blood Pressure 162/94 H 04/04/25 11:28 Pulse Oximetry 100 04/04/25 11:28 Oxygen Delivery Room Air 04/04/25 11:28 Temperature 98.3 F 04/04/25 11:28 Pulse Rate 99 04/04/25 13:44 Respiratory Rate 20 04/04/25 13:44 Blood Pressure 138/88 04/04/25 13:44 Pulse Oximetry 96 04/04/25 13:44 Oxygen Delivery Room Air 04/04/25 11:28 Lab Data 04/04/25 11:59 04/04/25 11:59 Labs: Lab Results 04/04/25 04/04/25 Range/Units 11:36 11:59 WBC 9.2 (4.5-10.0) K/mm3 RBC 4.04 L (4.2-5.4) M/mm3 Hgb 12.2 (12.0-15.0) g/dL Hct 35.7 L (37.0-47.0) % MCV 88.4 (80-100) fl MCH 30.2 (26-34) pg MCHC 34.2 (32-36) g/dl RDW 12.8 (11.5-14.5) % Plt Count 327 (150-375) k/mm3 MPV 9.0 (7.4-10.4) fl Immature Gran % (Auto) 0.4 (0-0.5) % Neut % (Auto) 74.1 H (45.5-73.1) % Lymph % (Auto) 17.9 L (18.3-44.2) % [place] % (Auto) 5.5 (2.6-8.5) % Eos % (Auto) 1.6 (0-4.4) % Baso % (Auto) 0.5 (0.2-1.2) % Lymph # (Auto) 1.65 (0.9-3.2) K/mm3 [place] # (Auto) 0.5 (0.1-0.6) K/mm3 Eos # (Auto) 0.2 (0-0.3) K/mm3 Baso # (Auto) 0.1 (0.0-0.1) K/mm3 Abs Immat Gran (auto) 0.04 H (0.00-0.031) K/mm3 Absolute Neuts (auto) 6.8 H (1.3-6.7) K/mm3 Absolute Nucleated RBC 0.000 (0.0-0.012) K/mm3 Nucleated RBC % 0.0 (0.0-0.2) % PT 14.1 (11.1-14.7) Seconds INR 1.1 APTT 25.5 (22.3-36.8) Seconds Sodium 137 (137-145) mmol/L Potassium 3.6 (3.4-5.0) mmol/L Chloride 105 (98-107) mmol/L Carbon Dioxide 23 (22-30) mmol/L Anion Gap 9 (4-12) mmol/L BUN 9 (7-17) mg/dL Creatinine 0.72 (0.7-1.0) mg/dL Estim Creat Clear Calc 112 ml/min Estimated GFR > 60 (59 - ) Glucose 119 H (65-110) mg/dL POC Capillary Glucose 124 H (65-105) mg/dl Calcium 8.4 (8.4-10.2) mg/dL Total Bilirubin 0.4 (0.2-1.3) mg/dL AST 29 (14-36) U/L ALT 24 (6-35) U/L Alkaline Phosphatase 124 (38-126) U/L Troponin I < 0.012 (0.000-0.034) ng/mL Total Protein 7.6 (6.3-8.2) g/dL Albumin 4.2 (3.5-5.1) g/dL Lipase 54 (23-300) U/L Imaging Data Radiologist's impression: ITS Impressions Chest X-Ray 04/04/25 12:22 IMPRESSION: 1. No acute cardiopulmonary disease. Venous Doppler Study 04/04/25 13:21 IMPRESSION: 1. Patent left upper extremity veins. No evidence of venous thrombosis. Venous Doppler Study 04/04/25 13:23 IMPRESSION: 1. No deep venous thrombosis in the right lower limb. ECG Data EKG #1: ECG completion date: 04/04/25 ECG completion time: 11:41 EKG Interpretation: normal rate (99), sinus rhythm, no ST changes, normal QRS and NL axis Discharge Plan Discharge Clinical Impression: Arm and leg pain Patient Disposition: Home Condition: Stable Instructions: Musculoskeletal Pain (ED) Additional Instructions: Take ibuprofen or Tylenol as needed for pain. Return the ER if you have fever 100.4? F, you have chest pain, he developed cough productive of blood, you have additional concerns. Patient Language: Divehi Prescriptions: No Action pantoprazole 40 mg tablet,delayed release (DR/EC) 40 mg PO BID 30 Days Qty: 60 3RF duloxetine 60 mg capsule,delayed release(DR/EC) 60 mg PO DAILY Qty: 90 2RF Zyrtec 10 mg capsule 10 mg PO HS PRN (Reason: Allergy Symptoms) multivitamin Tablet 1 tablet PO DAILY acetaminophen 500 mg tablet 1,000 mg PO TID PRN (Reason: irene) 7 Days Qty: 42 0RF ibuprofen 800 mg tablet 800 mg PO TID PRN (Reason: pain) 7 Days Qty: 21 0RF methocarbamol 750 mg tablet 1,500 mg PO TID Qty: 42 0RF amlodipine [Norvasc] 5 mg tablet 5 mg PO DAILY Qty: 90 2RF Follow-up/Referrals: Diomedes Seals MD [Primary Care Provider, Family Practice] - 1 Week
[2025-04-04 14:47] VITALS: BP 144/101; PULSE 84; RESP 16; O2SAT 97
== END 2025-04-04 14:47 | disposition home or self-care (01) ==
PROVIDERS: Student in an Organized Health Care Education/Training Program; Emergency Provider Emergency Medicine; PCP Family Medicine
DX: M79.602 Pain in left arm (principal); M79.604 Pain in right leg; R07.9 Chest pain, unspecified; E78.5 Hyperlipidemia, unspecified; I10 Essential (primary) hypertension; F17.210 Nicotine dependence, cigarettes, uncomplicated
CPT/HCPCS: 36415; 71046; 80053; 82948; 83690; 84484; 85025; 85610; 85730; 93005; 93971; 99284; A9270

== ENCOUNTER 2025-04-13 16:01 | Outpatient (CLI) | payer OTHER, SELFPAY ==
--- NOTE | ~2025-04-13 | XR_ITS ---
EXAMINATION: XR knee RT 3V, 04/13/2025 16:12 CDT HISTORY: M25.50 - Pain in unspecified joint COMPARISON: No comparisons available. Findings: No acute fracture or malalignment. Moderate tricompartmental degenerative changes, small effusions Soft tissues unremarkable. Impression: No acute fracture or malalignment. Reviewed, dictated and finalized at location A. Impression: No acute fracture or malalignment.
--- NOTE | ~2025-04-13 | XR_ITS ---
EXAMINATION: XR elbow LT min 3V, 04/13/2025 16:12 CDT HISTORY: M25.50 - Pain in unspecified joint COMPARISON: No comparisons available. Findings: No acute fracture or malalignment. No significant degenerative changes. Soft tissues unremarkable. Impression: No acute fracture or malalignment. Reviewed, dictated and finalized at location A. Impression: No acute fracture or malalignment.
--- NOTE | ~2025-04-13 | XR_ITS ---
EXAMINATION: XR elbow RT min 3V, 04/13/2025 16:12 CDT HISTORY: M25.50 - Pain in unspecified joint COMPARISON: No comparisons available. Findings: No acute fracture or malalignment. No significant degenerative changes. Soft tissues unremarkable. Impression: No acute fracture or malalignment. Reviewed, dictated and finalized at location A. Impression: No acute fracture or malalignment.
--- OUTSIDE RECORDS SUMMARY | 2025-04-13 16:06 | XMS_ITS | Data Portability ---
Author Organization [place] - [facility] OFFICE Address [address] [place] [address] Care Team Providers Care Culinary Art Teacher Name Role Phone VOLODYMYR MAS Primary Care Provider [phone] Assessment Encounter Date Assessment Date Assessment LastModified [...] 50 mg tablet 2022 023 ELENA Mendez [facility] [address], [address] [facility], [place], [address], 14:17:49 Patient TargetsNo targets recorded. Patient Instructions Encounter Date Encounter Id Patient Instructions Last Modified By Organization Details Last Modified Time 04/23/2022 [id number] Exercise advised Low cholesterol diet advised Low sodium diet advised. matilde Not available 04/23/2022 15:45:40 07/30/2022 [id number] Weight loss 20 pounds Exercise advised Low cholesterol diet advised Low sodium diet advised. [email or web address] Not available 07/30/2022 14:58:04 01/28/2023 [id number] Exercise advised Low cholesterol diet advised Low sodium diet advised. eyassin Not available 01/28/2023 14:16:47 02/11/2023 [id number] Exercise advised Low cholesterol diet advised Low sodium diet advised. [email or web address] Not available 02/11/2023 09:57:16 05/06/2023 [id number] Exercise advised Low cholesterol diet advised Low [...] 16:54:03 Body mass index 30+ - obesity 842771288 Active 2021 Grijalva [place] [facility] 2 16:54:12 Depressive disorder 85477594 Active 2021 [place] [facility] 2 16:54:20 Chronic back pain 097216937 Active 2021 [place] [facility] 15:17:56 Chronic headache disorder 344618027 Active 2021 [place] [facility] 2 15:18:29 Diverticuli tis 377182948 Active 2021 Grij[place] [facility] 3 02:03:29 Diverticulo sis of colon 029702720 Active 2021 [place] [facility] 2 16:55:20 Disorder of gallbladder 19913269 Active 2021 G[place] [facility] 2 16:55:49 Gastroesoph ageal reflux disease 066096243 Active 2021 [place] [facility] 2 16:55:56 Hemorrhoids 42065399 Active 2021 G[place] [facility] 2 16:56:09 Essential hypertensio n 81962230 Active 2021 [place] [facility] 2 16:56:19 Cyst of ovary 35178014 Active 2021 [place] [facility] 2 16:56:31 Seizure 89174946 Active 2021 [place] [facility] 2 16:56:39 Obstructive sleep apnea syndrome 48183864 Active 2021 G[place] [facility] 2 15:18:04 Dyslipidemi a 001300908 Active 2022 [place] [facility] 3 02:03:41 Iliac vein compression syndrome 912334503 Active 2022 [place] [facility] 02:04:15 Problem Notes None recorded. Procedures Surgical History Date Name Laterality Status Provider Name and Address Organization Details Recorded Time [facility] [place] [facility] 03/15/2022 16:57:51 endoscopy completed Rgijalva [facility] 03/15/2022 16:58:00 stripping of vein completed Grijalva [facility] [place] [facility] 03/15/2022 16:58:18 Appendectomy completed [facility] [place] [facility] 03/15/2022 16:58:26 Cholecystectomy [facility] [place] [facility] 03/15/2022 16:58:57 section completed [facility] [place] [facility] 03/15/2022 16:59:10 Imaging Results None recorded. Procedure Notes None recorded. Medical Equipment None Reported. Allergies Allergen ID Allergen Name Allergen Category Reaction Reaction Severity Criticality Documentation Date Start Date Code Code System Note Provider Name and Address Organization Details Recorded Time 58675 Product containin g penicilli n (product) medicatio n Not available Not available Not available 03/15/2022 43954 8001 SNOMED Grijal[place] [facility] 2 17:04:54 67209 shrimp allergeni c extract food Not available Not available Not available 03/15/2022 01341 2 RxNorm Grijal[place] [facility] 2 17:05:03 83305 wheat preparati on food,medi cation Not available Not available Not available 03/15/2022 46710 52 RxNorm Rudi [place] null, [place] - [facility] 2 17:05:11 66052 Iodinated contrast media (substanc e) medicatio n Not available Not available Not available 03/15/2022 78929 2004 SNOMED Rudi [place] [facility] 2 17:05:46 00371 irbesarta n medicatio n Not available Not available Not available 03/15/2022 31753 RxNorm Rud[place] [facility] [...] Updated DateTime 3 172.72 cm 32.4 kg/m2 90361.1 7 g 92 /min 16 /min 99 % 99 % 118/84 mm[Hg] Felipe Zamora [facility] 3 14:37:17 Date Recorded Body height Body mass index (BMI) Body weight Heart rate Oxygen saturation Oxygen saturation in Arterial blood by Pulse oximetry Systolic And Diastolic Provider Name and Address Organization Details Last Updated DateTime 3 172.72 cm 35.3 kg/m2 505813. 07 g 71 /min 91 % 91 % 120/80 mm[Hg] RONALD PRUITT [facility] 3 13:24:20 Date Recorded Body height Body mass index (BMI) Body weight Heart rate Respiratory rate Oxygen saturation Oxygen saturation in Arterial blood by Pulse oximetry Systolic And Diastolic Provider Name and Address Organization Details Last Updated DateTime 3 172.72 cm 35.4 kg/m2 901593. 02 g 102 /min 18 /min 97 % 97 % 128/84 mm[Hg] Felipe Zamora [facility] 3 09:39:19 Date Recorded Body height Body mass index (BMI) Body weight Oxygen saturation Oxygen saturation in Arterial blood by Pulse oximetry Heart rate Systolic And Diastolic Provider Name and Address Organization Details Last Updated DateTime 2 172.72 cm 33.8 kg/m2 737736. 51 g 96 % 96 % 81 /min 148/102 mm[Hg] RONALD PRUITT [facility] 2 15:08:57 Date Recorded Body height Body mass index (BMI) Body weight Heart rate Oxygen saturation Oxygen saturation in Arterial blood by Pulse oximetry Systolic And Diastolic Provider Name and Address Organization Details Last Updated DateTime 3 172.72 cm 35.7 kg/m2 421498. 21 g 97 /min 95 % 95 % 146/90 mm[Hg] Lela River [facility] 3 16:16:04 Social History Question Answer Notes LastModified by PEAK-IT Details LastModified Time Tobacco Smoking Status Current Every Day Smoker Rudi hua [facility] 03/15/2022 17:01:02 What Is Your Level Of Caffeine Consumption? Occasional Information not available 03/19/2022 What Type Of Diet Are You Following? REGULAR Information not available 03/19/2022 How Much Tobacco Do You Smoke? 1 PPD Information not available 03/15/2022 How Many Years Have You Smoked Tobacco? 7 Information not available 03/15/2022 Sex: Unknown Functional Status Question Answer Note LastModified by PEAK-IT Details LastModified Time Do you use any [...] Diagnosis SNOMED-CT Code Diagnosis ICD10 Code Diagnosis IMO Codes Diagnosis Note 98607 Phani Vega [facility] [address] [place] [address] 03/19/2022 15:00:17 03/19/2022 16:01:07 Varicose veins of lower extremity 06937239 I83.891 Benign ess ential hypertension 4550276 I10 well controlled todayconti nue losartan 100 mg daily Iliac vein compression syndrome 257071072 I87.1 will do venous reflex ultrasound 35981 Phani Vega MD [facility] [address] [place] [address] 04/23/2022 14:30:53 04/23/2022 15:55:13 Varicose veins of lower extremity 77528359 I83.891 significan t reflex disease need venous angiogram Benign ess ential hypertension 5508132 I10 well controlled todayconti nue losartan 100 mg daily Iliac vein compression syndrome 646730381 I87.1 will do venous reflex ultrasound after stress echo Essential hypertension 51522665 I10 elevated today she need cpap Obstructiv e sleep apnea syndrome 03807348 G47.33 repeat study Dyspnea on exertion 6084 5006 R06.09 Treadmill Myoview Stress test, has high [place] Risk score. Has Known CAD, or CAD risk equivalent . To look for any ischemia. Pre-surger y evaluation 085449463 Z01.818 Treadmill Myoview Stress test, has high [place] Risk score. Has Known CAD, or CAD risk equivalent . To look for any ischemia. Dyslipidemia 316583944 E 78.5 LDL is at 119 she is not taking 88384 Phani Vega MD [facility] [address] [place] [address] 07/30/2022 14:25:03 07/30/2022 15:00:22 Varicose veins of lower extremity 48251197 I83.891 significan t reflex disease need venous angiogram Benign ess ential hypertension 2990334 I10 well controlled todayconti nue losartan 100 mg daily Iliac vein compression syndrome 301412671 I87.1 will do venous reflex ultrasound after stress echo Essential hypertension 06875099 I10 elevated today she need cpap Obstructiv e sleep apnea syndrome 11034947 G47.33 repeat study Dyspnea on exertion 6084 5006 R06.09 Treadmill Myoview Stress test, has high [place] Risk score. Has Known CAD, or CAD risk equivalent . To look for any ischemia. Dyslipidemia 398856500 E 78.5 LDL is at 119 she is not taking meds 99993 Phani Vega MD [facility] [place] [address] 01/28/2023 12:44:13 01/28/2023 14:18:38 Varicose veins of lower extremity 36781726 I83.891 resolved Benign ess ential hypertension 5045964 I10 high BP todayshe discontinu e losartan 100 mg daily as she thought her BP is well controllSh e is on amlodipin 5 mg dailyLosar flores 50 mg daily Iliac vein compression syndrome 519721617 I87.1 will do venous reflex ultrasound after stress echo Essential hypertension 31489091 I10 elevated today she need cpap Obstructiv e sleep apnea syndrome 03292672 G47.33 repeat study Dyspnea on exertion 6084 5006 R06.09 Treadmill Myoview Stress test, has high [place] Risk score. Has Known CAD, or CAD risk equivalent . To look for any ischemia. Dyslipidemia 047656375 E 78.5 LDL is at 136 she is not taking meds 09/12 31969 Phani Vega MD [facility] OFF[facility] [address] [place] [address] 02/11/2023 09:33:56 02/11/2023 10:16:13 Varicose veins of lower extremity 97631587 I83.891 resolved Benign ess ential hypertension 1270983 I10 well controlled todayprevi ously she discontinu e losartan 100 mg daily as she thought her BP is well controllSh e is on amlodipin 5 mg daily and Losartan 50 mg daily Iliac vein compression syndrome 488004040 I87.1 well controlled and has no problem currently Essential hypertension 08951282 I10 well controlled today Obstructiv e sleep apnea syndrome 19959306 G47.33 repeat study Dyspnea on exertion 6084 5006 R06.09 Negative stress echo. Mild exercise impairment . Dyslipidemia 974650176 E 78.5 LDL is at 136 she is not taking meds repeat in 3 months Tachycardia 7761704 R00. 0 will consider adding metoprolol next visit if she still tachyproba diya tachy due to abdominal dis comfortabl e after her diverticul itis surgery , she is going for abdominal ultrasound tomorrow 80996 Phani Vega MD [facility] [place] [address] 05/06/2023 16:04:19 05/06/2023 16:48:03 Varicose veins of lower extremity 57624906 I83.891 resolved Benign ess ential hypertension 7020101 I10 well controlled todayprevi ously she discontinu e losartan 100 mg daily as she thought her BP is well controllSh e is on amlodipin 5 mg daily and Losartan 50 mg daily Iliac vein compression syndrome 929305169 I87.1 well controlled and has no problem currently Essential hypertension 88963618 I10 well controlled today Obstructiv e sleep apnea syndrome 72088224 G47.33 repeat study Dyspnea on exertion 6084 5006 R06.09 Negative stress echo. Mild exercise impairment . Dyslipidemia 962182015 E 78.5 LDL is at 136 she is not taking meds 09/12wi repeat in 3 months Tachycardia 2754383 R00. 0 will consider adding metoprolol next visit if she still tachyproba diya tachy due to abdominal dis comfortabl e after her diverticul itis surgery , she is going for abdominal ultrasound tomorrow Pulmonary embolism 11044 003 I26.99 On Eliquis 5 mg bidJay [...] Jurado Member ID Guarantor Name 01/26/2025 1 [facility] [id number] Herrera Hernandez [id number] Devi Hernandez 05/03/2023 2 [place] [employer] [employer] [place] [employer] Devi Hernandez [id number] Devi Hernandez Notes Date Note Type Note Provider Name and Address Organization Details Recorded Time 04/23/2022 text/html 04/23/22CC : Cardiac follow up legs Yarelis HERNANDEZ is a [...] has had tow previous vein stripping surgeries 9365-9717.She can not bare aliza on her right leg for the last 8 months. She is been vaping for the last 3 months.Her dad has bypass surgery when he was 75. VAHE Valdez - [facility] 04/23/2022 15:45:46 07/30/2022 text/html 07/30/22CC : Cardiac follow up , dyspnea on exertionDevi HERNANDEZ [...] has had tow previous vein stripping surgeries 1541-2203. She can not bare aliza on her right leg for the last 8 months. She is been vaping for the last 3 months. Phani Vega MD [address] [place], [address], [facility] - [facility] 07/30/2022 14:59:08 01/28/2023 text/html 01/28/23CC : Cardiac follow up dyspnea on exertionDevi HERNANDEZ is [...] has had tow previous vein stripping surgeries 0310-5878. She can not bare aliza on her right leg for the last 8 months. She is been vaping for the last 3 months. [facility] - [facility] 01/28/2023 14:17:47 02/11/2023 text/html 02/11/23CC : Cardiac follow up Sissy HERNANDEZ is a 42 [...] has had tow previous vein stripping surgeries 3704-0131. She can not bare aliza on her right leg for the last 8 months. She is been vaping for the last 3 months. Phani Vega MD [address] [place], [address], [facility] - [facility] 02/11/2023 09:59:05 05/06/2023 text/html 05/06/23CC : Cardiac follow upTermohinder HERNANDEZ is a 42 years-old Female with h/o Hypertension, celiac disease , depression ,Obstructive sleep apnea and GERD, celiac , and diverticulitis is here for 3 month follow up. She was last seen in the clinic on 02/11/23, since then Edvin denies ER visits and hospitalizations since she was last seen. Today reports:pt previously had hernia surgery of 04/21/2023 [facility] - pt having chest pain but refuses ECG . after surgery at [facility] had PE. pt feels thats [...] has had tow previous vein stripping surgeries 2717-9188. She can not bare aliza on her right leg for the last 8 months. She is been vaping for the last 3 months. Phani Vega MD [address] [place], [address], [place] [facility] 05/06/2023 16:41:39 OBGyn Episode No OBEpisode recorded.
--- OUTSIDE RECORDS SUMMARY | 2025-04-13 16:06 | XMS_ITS | Clinical Summary ---
Author Organization [facility] DNS:Net Address [address] [facility] [place] [address] Care Team Providers Care Mental Health Assistant Name Role Phone Diomedes Seals MD Primary Care Provider [phone] Source Comments [facility],non-owned Affiliates and Associated Physician Practices is amultiple site organization consisting of ambulatory clinics and hospital sitesin [place], [place], [place] and [place]. This disclosure is being madepursuant to the Care Everywhere program and may not contain all information available regarding this patient. Last updated 18.[facility] DNS:Net Allergies Active Allergy Reactions Criticality Noted Date [...] on file Legal Sex Female 6:54 PM DIRECTOR VISUAL Gender Identity Not on file Sexual Orientation [...] Comments LIPID PROFILE Routine 09/18/2011 8:02 AM DIRECTOR VISUAL from Last 3 Months or Most Recently Relevant to Health Maintenance Results * (ABNORMAL) LIPID PROFILE (09/18/2011 8:02 AM DIRECTOR VISUAL) Cholesterol Total 176 125 - 200 mg/dL [facility] Comment: Test Performed at: [employer] [facility] [address] [place] [address] BINA LEVINE DO HDL 32(L) > OR [...] Venous blood specimen (specimen) 09/18/2011 8:02 AM DIRECTOR VISUAL 09/18/2011 8:03 AM DIRECTOR VISUAL Joe Gonzalez MD LAB - CHEMISTRY ORDERABLES Fin al Result [facility] [address] from Last 3 Months or Most Recently Relevant to Health Maintenance Insurance MEDICAID - OUT OF STATE [facility] [place] [facility] * Guarantor: MALISSA HERNANDEZI Account Type Relation to Patient Date of Phone Billing Address Personal/Family [address] [place] [address] SELF PAY NO INSURANCE Member Subscriber Plan / Payer (Ef fective for All Dates) Name:Alis Hernandez Member ID:Not on file Relation to Subscriber:Not on file Name:MALISSA HERNANDEZI Subscriber ID:Not on file Address: [address] [place] [address] Payer ID:Not on file Group ID:Not on file Type:Self Pay Address: [facility] * Guarantor: ALIS HERNANDEZ Account Type Relation to Patient Date of Phone Billing Address Personal/Family [address] [place], [place] [phone] SELF PAY NO INSURANCE Member Subscriber Plan / Payer (Ef fective for All Dates) Name:Alis Hernandez T Member ID:Not on file Relation to Subscriber:Not on file Name:ALIS HERNANDEZ Subscriber ID:Not on file Address: [address] [place] [address] Payer ID:Not on file Group ID:Not on file Type:Self Pay Address: [facility] * Guarantor: ALIS HERNANDEZ Account Type Relation to Patient Date of Phone Billing Address Personal/Family [address] [place] [address] SELF PAY NO INSURANCE Member Subscriber Plan / Payer (Ef fective for All Dates) Name:Alis Hernandez T Member ID:Not on file Relation to Subscriber:Not on file Name:ALIS HERNANDEZ Subscriber ID:Not on file Address: [address] [place], [place] [phone] Payer ID:Not on file Group ID:Not on file Type:Self Pay Address: [facility] Care Teams Mental Health Assistant Relationship Specialty Start Date End Date Diomedes Seals MD [address] [place] [address] PCP - General 06/20/22
--- OUTSIDE RECORDS SUMMARY | 2025-04-13 16:06 | XMS_ITS | Clinical Summary ---
Author Organization [facility] Address [address] [place] [address] Care Team Providers Care Brick Kiln Burner Name Role Phone Diomedes Seals MD Primary Care Provider [phone] Allergies Active Allergy Reactions Criticality Noted Date [...] dispo -12/[address] scan with SD contrast 12/16 Starting clear liquids but continuing [...] IV cefe/flagyl, CT AP with IV and SD contrast to rule out missed colon injury, LEDs and lower extremity arterial doppler 12/11 LE US studies unrevealing. CT A/P with SD contrast pending. No nausea, continue IV antibiotics. [...] Complete spontaneous w/o complication;Recorded Elsewhere: No Location: [facility] Source: EHR Chronic: N Practice ID: [id number] Billable Time: 04:30:00 PM Pelvic and perineal pain 01/12/2018 Overview (09/30/2024): Pelvic pain;Recorded Elsewhere: No Location: [facility] Source: EHR Chronic: N Practice ID: [id number] Billable Time: 11:00:00 AM Acute vaginitis 01/01/2016 Overview (09/30/2024): Acute vulvovaginitis;Recorded Elsewhere: No Location: [facility] Source: EHR Chronic: N Practice ID: [id number] Billable Time: 11:30:00 AM Female genital symptoms 11/02/2013 Overview (09/30/2024): Unspecified symptom associated with female genital organs;Recorded Elsewhere: No Location: [facility] Source: EHR Chronic: N Practice ID: [id number] Billable Time: 08:30:00 AM Headache 11/02/2013 Overview (09/30/2024): Headache;Recorded Elsewhere: No Location: [facility] Source: EHR Chronic: N Practice ID: [id number] Billable Time: 08:30:00 AM Hematochezia 11/02/2013 Overview (09/30/2024): Blood in stool;Recorded Elsewhere: No Location: [facility] Source: EHR Chronic: N Practice ID: [id number] Billable Time: 08:30:00 AM Sleep apnea 06/17/2012 Nontoxic single thyroid nodule 06/17/2012 Hirsutism 06/17/2012 Abdominal pain 12/17/2011 Overview (09/30/2024): Abdominal pain, other specified site;Recorded Elsewhere: No Location: [facility] Source: EHR Chronic: N Practice ID: [id number] Billable Time: 03:00:00 PM Goiter 09/11/2011 Overview (09/30/2024): Goiter, unspecified;Recorded Elsewhere: No Location: [facility] Source: EHR Chronic: N Practice ID: [id number] Billable Time: 09:15:00 AM Increased frequency of urination 09/11/2011 Overview (09/30/2024): Urinary frequency;Recorded Elsewhere: No Location: [facility] Source: EHR Chronic: N Practice ID: [...] updated 12/12/23) Primary Care Provider: Rossana Ireland, PRODUCTION DEPARTMENT SUPERVISOR Placement or Home Health Company: N/A Current [...] [facility] Medicine Surgery [address] [facility] Advanced Medicine [address]th [place] [address] [place] [address] Joyce Zamora CMA 02/14/2025 10:54 AM CDT - 02/14/2025 11:59 PM CDT Hospital Encounter [facility] [place] [facility] - Ultrasound [address] [facility], 7th [address], [address] [facility] [place] [address] Cyst of right ovary Discharge Disposition: Discharge to home or self care 02/14/2025 Results Follow-Up [facility] Medicine Obstetrics and Gynecology [address] [facility] 7[address] [place] [address] Perla Kwong NP US Pelvis Complete 01/28/2025 Orders Only [facility] Medicine Obstetrics and Gynecology [address] [facility] 7[address] [place] [phone] Dorie Jordan Rai, NP Cyst of right ovary (Primary Dx) 01/25/2025 11:00 AM CDT Office Visit [facility] Medicine Surgery [address] [facility] 12th [place] [address] [place] [address] Attila Foster MD Infected hernioplasty mesh, subsequent encounter (Primary Dx) 01/25/2025 9:26 AM CDT - 01/25/2025 11:59 PM CDT Hospital Encounter [facility] [address] [place] [address] Infected hernioplasty mesh, initial encounter Discharge Disposition: [...] materials from doctor or pharmacy Never 12/21/2023 [facility] Utilities Answer Date Recorded In the past 12 months has th e [employer], gas, oil, or water Unruly threatened to shut off services in your [...] often do you attend chur ch or jewish services? Never 12/26/2023 Do you belong to any clubs o r organizations such as restoration groups, unions, fraternal or athletic groups, or [...] Date Recorded PHQ-2 Total Score 1 12/26/2023 [facility] [place] [facility] Occupat ional Health - Occupational Stress [...] any time in the past 12 m [facility], were you homeless or living in a chcf (including now)? No 12/26/2023 Personal Safety Answer Date Recorded Have you ever been in or are you currently in a harmful physical or emotional relationship or is someone making you feel afraid or unsafe? 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
--- OUTSIDE RECORDS SUMMARY | 2025-04-13 16:06 | XMS_ITS | Encounter Summary ---
Author Organization [facility] Address [address] [place] [address] Phone Care Team Providers Care Newspaper Writer Name Role Phone Diomedes Seals MD Primary Care Provider [phone] Encounter Details Date Type Department Care Team (Late st Contact Info) Description 02/14/2025 Results Follow-Up [facility] Medicine Obstetrics and Gynecology [address] [facility] Out[facility] Health 7th Floor [address] [place] [address] Perla Kwong NP [address] [address] [place] Pelvis Complete Social History [...] materials from doctor or pharmacy Never 12/21/2023 [facility] Utilities Answer Date Recorded In the past [...] week 12/26/2023 How often do you attend [facility] or pentecostalism services? Never 12/26/2023 Do you belong to any clubs o r organizations such as caodaism groups, unions, fraternal or athletic groups, or [...] Date Recorded PHQ-2 Total Score 1 12/26/2023 [facility] [employer] [place] of Occupat ional Health - Occupational Stress [...] any time in the past 12 m [facility], were you homeless or living in a usp (including now)? No 12/26/2023 Personal Safety Answer Date Recorded Have you ever been in or are you currently in a harmful physical or emotional relationship or is someone making you feel afraid or unsafe? Denies 10/06/2024 Comments No Sex and Gender Information Value Date Recorded Sex Assigned at Not on file Legal Sex Female 12:43 AM SUPPORT SERVICES REP Gender Identity Female 12/22/2023 9:56 AM CDT Sexual Orientation Straight 12/22/2023 9: 56 AM CDT documented as of this encounter Plan of Treatment Not on file documented as of this encounter Visit Diagnoses Not on filedocumented in this encounter Care Teams Newspaper Writer Relationship Specialty Start Date End Date Diomedes Seals MD [address] [place] [address] PCP - General Family Medicine 12/28/23 documented as of this encounter
[2025-04-13 17:02] LABS: CRP 0.9 mg/dL (<1.0)
[2025-04-13 17:39] LABS: Immunoglobulin A 247 mg/dL (70-400); Immunoglobulin G 1207 mg/dL (700-1600); Immunoglobulin M 105 mg/dL (40-230)
[2025-04-15 07:09] LABS: ANA by IFA Rfx Titer/Pattern Negative (.)
== END 2025-04-13 16:02 | disposition home or self-care (01) ==
PROVIDERS: PCP Family Medicine
DX: M25.50 Pain in unspecified joint (principal); R76.8 Other specified abnormal immunological findings in serum
CPT/HCPCS: 36415; 73080; 73562; 82784; 85652; 86038; 86140; 86430

== ENCOUNTER 2025-04-18 12:24 | Outpatient (CLI) | payer OTHER, SELFPAY ==
--- NOTE | ~2025-04-18 | MMUS_ITS ---
EXAMINATION: MM diagnostic [place] LT w milo, US breast LT limited HISTORY: Follow-up left breast asymmetry TECHNIQUE: Additional 3-D tomosynthesis images of the left breast were performed and synthetic 2-D images were generated. CAD analysis was submitted and interpreted. High resolution Limited left breast ultrasound was performed. COMPARISON: Comparison to multiple prior studies sequentially, with oldest reviewed study dated 02/18/2020. BREAST PARENCHYMAL COMPOSITION: Dense: The breasts are heterogeneously dense, which may obscure small masses FINDINGS: MAMMOGRAPHIC FINDINGS: There is a mass in the upper outer quadrant of the left breast, posterior third. There are circumscribed margins. There are no suspicious calcifications or architectural distortion. ULTRASOUND: Limited left breast ultrasound: At 1:00, 3 cm from the nipple there is a 4 mm cyst. At 2:00, 7 cm from the nipple there is a 1.3 cm cyst, corresponding to the asymmetry seen on mammography. IMPRESSION: 1. No evidence for malignancy in the left breast. Benign findings. 2. Routine yearly screening mammogram and regular clinical breast examination are recommended. BI-RADS Category 2: Benign finding(s). Reviewed, dictated and finalized at location B. IMPRESSION: 1. No evidence for malignancy in the left breast. Benign findings. 2. Routine yearly screening mammogram and regular clinical breast examination a re recommended. BI-RADS Category 2: Benign finding(s).
--- OUTSIDE RECORDS SUMMARY | 2025-04-18 12:29 | XMS_ITS | Clinical Summary ---
Author Organization [facility] Address [address] [place] [address] Care Team Providers Care Station Operator Name Role Phone Diomedes Seals MD Primary Care Provider [phone] Allergies Active Allergy Reactions Criticality Noted Date [...] at OSH on 12/04 -Transfer to [facility] for higher level of care with prior EGS admission 12/09-12/18 Pathology OSH 11/25 -Benign hypervascular ovarian cyst with adhesions Assessment & Plan (12/12/2023 12:17 PM CDT): -OSH OR 11/25, initially planned for elective surgery; c/b intraabdominal hemorrhage, OSH General Surgery c/s intra-op > Op notes obtained and uploaded in Media -Post op course c/b abscess c/f ECF -Transfer to [facility] for higher level of care - [...] She would like to follow with [facility] IR and General surgery. IR drain [...] and IR follow up on 12/31. [facility] Imagin/23 LE Arterial Dopplers - bilateral [...] Complete spontaneous w/o complication;Recorded Elsewhere: No Location: [facility] Source: EHR Chronic: N Practice ID: [id number] Billable Time: 04:30:00 PM Pelvic and perineal pain 01/12/2018 Overview (09/30/2024): Pelvic pain;Recorded Elsewhere: No Location: [facility] Source: EHR Chronic: N Practice ID: [id number] Billable Time: 11:00:00 AM Acute vaginitis 01/01/2016 Overview (09/30/2024): Acute vulvovaginitis;Recorded Elsewhere: No Location: [facility] Source: EHR Chronic: N Practice ID: [id number] Billable Time: 11:30:00 AM Female genital symptoms 11/02/2013 Overview (09/30/2024): Unspecified symptom associated with female genital organs;Recorded Elsewhere: No Location: [facility] Source: EHR Chronic: N Practice ID: [id number] Billable Time: 08:30:00 AM Headache 11/02/2013 Overview (09/30/2024): Headache;Recorded Elsewhere: No Location: [facility] Source: EHR Chronic: N Practice ID: [id number] Billable Time: 08:30:00 AM Hematochezia 11/02/2013 Overview (09/30/2024): Blood in stool;Recorded Elsewhere: No Location: [facility] Source: EHR Chronic: N Practice ID: [id number] Billable Time: 08:30:00 AM Sleep apnea 06/17/2012 Nontoxic single thyroid nodule 06/17/2012 Hirsutism 06/17/2012 Abdominal pain 12/17/2011 Overview (09/30/2024): Abdominal pain, other specified site;Recorded Elsewhere: No Location: [facility] Source: EHR Chronic: N Practice ID: [id number] Billable Time: 03:00:00 PM Goiter 09/11/2011 Overview (09/30/2024): Goiter, unspecified;Recorded Elsewhere: No Location: [facility] Source: EHR Chronic: N Practice ID: [id number] Billable Time: 09:15:00 AM Increased frequency of urination 09/11/2011 Overview (09/30/2024): Urinary frequency;Recorded Elsewhere: No Location: [facility] Source: EHR Chronic: N Practice ID: [...] updated 12/12/23) Primary Care Provider: Rossana Ireland, AUTO BODY REPAIR TECHNICIAN Placement or Home Health Company: N/A Current [...] Type Department Care Team Description 03/11/2025 Telephone [facility] Medicine Surgery [address] [facility] 12th [place] [address] [place] [address] Joyce Zamora CMA 02/14/2025 10:54 AM CDT - 02/14/2025 11:59 PM CDT Hospital Encounter [facility]patient [facility] - Ultrasound [address] [facility], 7th Floor, [address] [facility] [place] [address] Cyst of right ovary Discharge Disposition: Discharge to home or self care 02/14/2025 Results Follow-Up [facility] Medicine Obstetrics and Gynecology [address] [facility] Outpatient Health 7th Floor [address] [place] [address] Perla Kwong NP US Pelvis Complete 01/28/2025 Orders Only [facility] Medicine Obstetrics and Gynecology [address] [facility] 7th Floor [address] [place] [id number] Dorie Jordan Rai, NP Cyst of right ovary (Primary Dx) 01/25/2025 11:00 AM CDT Office Visit [facility] Medicine Surgery [address] [facility] 12th [place] [address] [place] [address] Attila Foster MD Infected hernioplasty mesh, subsequent encounter (Primary Dx) 01/25/2025 9:26 AM CDT - 01/25/2025 11:59 PM CDT Hospital Encounter [facility] [address] [place] [address] Infected hernioplasty mesh, initial encounter Discharge Disposition: [...] materials from doctor or pharmacy Never 12/21/2023 [place] Utilities Answer Date Recorded In the past 12 months has th e [employer], gas, oil, or water Down threatened to shut off services in your [...] Date Recorded PHQ-2 Total Score 1 12/26/2023 [facility] [place] of Occupat ional Health - Occupational Stress [...] any time in the past 12 m [facility], were you homeless or living in a mcfp (including now)? No 12/26/2023 Personal Safety Answer Date Recorded Have you ever been in or are you currently in a harmful physical or emotional relationship or is someone making you feel afraid or unsafe? 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 Gender Identity Female 12/22/2023 9:56 AM CDT [...] nal Result from Last 3 Months Insurance [facility] CHOICE PLUS [facility] HMO/PPO Address: [address] [address] [place] [address] IDPA [facility] CHOICE PLUS [facility] HMO/PPO Address: [facility] [address] [place] [address] IDND [facility] H[facility]/PPO Address: [facility] [address] [place] [address] [facility] HMO/PPO Address: [address] [address] [facility] H[facility]/PPO Address: [address] [address] Advance Directives For more information, please contact: [phone] * Full Code (Latest Code Status on [...] 9:24 PM 12/19/2023 10:20 PM Care Teams Station Operator Relationship Specialty Start Date End Date Diomedes Seals MD [address] [place] [place] [address] PCP - General Family Medicine 12/28/23
--- OUTSIDE RECORDS SUMMARY | 2025-04-18 12:29 | XMS_ITS | Clinical Summary ---
Author Organization [facility] Address [address] [place] [address] Care Team Providers Care Therapy Manager Name Role Phone Diomedes Seals MD Primary Care Provider [phone] Source Comments [facility] Affiliates and Associated Physician Practices is amultiple site organization consisting of ambulatory clinics and hospital sitesin [place], [place], [place] and [place]. This disclosure is being madepursuant to the Care Everywhere program and may not contain all information available regarding this patient. 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 Gender Identity Not on file Sexual Orientation [...] 09/17/2016 09/18/2011 DEPRESSION SCREENING 07/21/2024 COVID-19 VACCINE (3 - 2024-2 6 season) 2025 11/25/2020, 11/03/2020 INFLUENZA VACCINE (#1) 2025 06/12/2012 ZOSTER VACCINE (1 of 2) 10/01/2029 HIB VACCINE Aged Out No longer eligi ble based on patient's age to complete this topic MENINGOCOCCAL (Group B) VACCINE SHARED DECISION-MAKING Aged Out No longer eligible based on patient's age to complete this topic MENINGOCOCCAL GROUPS A/C/Y/W VACCINE Aged Out No longer eligible b ased on patient's age to complete this topic PNEUMOCOCCAL VACCINE Aged Out No long er eligible based on patient's age to complete this topic Procedures Procedure Name Priority Date/Time Associated Diagnosis Comments LIPID PROFILE Routine 09/18/2011 8:02 AM GLASS MOLD REPAIRER from Last 3 Months or Most Recently Relevant to Health Maintenance Results * (ABNORMAL) LIPID PROFILE (09/18/2011 8:02 AM GLASS MOLD REPAIRER) Cholesterol Total 176 125 - 200 mg/dL [facility] Comment: Test Performed at: [facility] [address] [place] [id number] BINA LEVINE DO HDL 32(L) > OR [...] Venous blood specimen (specimen) 09/18/2011 8:02 AM GLASS MOLD REPAIRER 09/18/2011 8:03 AM GLASS MOLD REPAIRER Joe Gonzalez MD LAB - CHEMISTRY ORDERABLES Fin al Result [facility] [id number] from Last 3 Months or Most Recently Relevant to Health Maintenance Insurance MEDICAID - OUT OF STATE HEALTH CARE [place]ID - [place] [facility] * Guarantor: ALIS HERNANDEZ Account Type Relation to Patient Date of Phone Billing Address Personal/Family [address] [place] [address] SELF PAY NO INSURANCE Member Subscriber Plan / Payer (Ef fective for All Dates) Name:David Alis T Member ID:Not on file Relation to Subscriber:Not on file Name:ALIS HERNANDEZ Subscriber ID:Not on file Address: [address] [place] [address] Payer ID:Not on file Group ID:Not on file Type:Self Pay Address: [facility] Member Subscriber Plan / Payer (Ef fective 2024-Present) Name:Alis Hernandez Member ID:[id number] Relation to Subscriber:Spouse Name:MARLON HERNANDEZ Subscriber ID:Not on file Date of :1974 Address: [address] [place], [place] [id number] Payer ID:[id number] (NAIC) Type:PPO Address: [address] * Guarantor: ALIS HERNANDEZ Account Type Relation to Patient Date of Phone Billing Address Personal/Family [address] [place], [place] [phone] SELF PAY NO INSURANCE Member Subscriber Plan / Payer (Ef fective for All Dates) Name:Alis Hernandez Member ID:Not on file Relation to Subscriber:Not on file Name:ALIS HERNANDEZ Subscriber ID:Not on file Address: [address] [place] [address] Payer ID:Not on file Group ID:Not on file Type:Self Pay Address: [facility] * Guarantor: ALIS HERNANDEZ Account Type Relation to Patient Date of Phone Billing Address Personal/Family [address] [place], [place] [phone] SELF PAY NO INSURANCE Member Subscriber Plan / Payer (Ef fective for All Dates) Name:Alis Hernandez Member ID:Not on file Relation to Subscriber:Not on file Name:ALIS HERNANDEZ Subscriber ID:Not on file Address: [address] [place] [id number] Payer ID:Not on file Group ID:Not on file Type:Self Pay Address: [facility] Care Teams Therapy Manager Relationship Specialty Start Date End Date Diomedes Seals MD [address] [place] [id number] PCP - General 06/20/22
--- OUTSIDE RECORDS SUMMARY | 2025-04-18 12:29 | XMS_ITS | Data Portability ---
Author Organization [place] - [facility] OFFICE Address [address] [place] [address] Care Team Providers Care Investigator Internal Revenue Name Role Phone VOLODYMYR MAS Primary Care Provider [phone] Assessment Encounter Date Assessment Date Assessment LastModified [...] 50 mg tablet [address] [facility] [address], [place], [address], 14:17:49 Patient TargetsNo targets recorded. Patient Instructions Encounter Date Encounter Id Patient Instructions Last Modified By Organization Details Last Modified Time 04/23/2022 [id number] Exercise advised Low cholesterol diet advised Low sodium diet advised. matilde Not available 04/23/2022 15:45:40 07/30/2022 [id number] Weight loss 20 pounds Exercise advised Low cholesterol diet advised Low sodium diet advised. [email or web address] Not available 07/30/2022 14:58:04 01/28/2023 [id number] Exercise advised Low cholesterol diet advised Low sodium diet advised. eyassin Not available 01/28/2023 14:16:47 02/11/2023 [id number] Exercise advised Low cholesterol diet advised Low sodium diet advised. [email or web address] Not available 02/11/2023 09:57:16 05/06/2023 [id number] Exercise advised Low cholesterol diet advised Low [...] 16:54:03 Body mass index 30+ - obesity 710656039 Active 2021 Grijalva [place] - [facility] 2 16:54:12 Depressive disorder 91239627 Active 2021 [place] [facility] 2 16:54:20 Chronic back pain 592803068 Active 2021 G[place] [facility] 2 15:17:56 Chronic headache disorder 751483180 Active 2021 G[place] [facility] 2 15:18:29 Diverticuli tis 433608290 Active 2021 G[place] [facility] 3 02:03:29 Diverticulo sis of colon 205189743 Active 2021 Grij[place] [facility] 2 16:55:20 Disorder of gallbladder 68241084 Active 2021 G[place] [facility] 2 16:55:49 Gastroesoph ageal reflux disease 658928980 Active 2021 G[place] [facility] 2 16:55:56 Hemorrhoids 19996316 Active 2021 G[place] [facility] 2 16:56:09 Essential hypertensio n 82574863 Active 2021 G[place] [facility] 2 16:56:19 Cyst of ovary 54682265 Active 2021 G[place] [facility] 2 16:56:31 Seizure 23538503 Active 2021 G[place] [facility] 2 16:56:39 Obstructive sleep apnea syndrome 18668769 Active 2021 Grij[place] [facility] 2 15:18:04 Dyslipidemi a 467497806 Active 2022 G[place] [facility] 3 02:03:41 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 Procedures Surgical History Date Name Laterality Status Provider Name and Address Organization Details Recorded Time [facility] [place] [facility]/15/[facility]22 16:57:51 endoscopy completed Grijalva [facility] 03/15/2022 16:58:00 stripping of vein completed Grijalva [facility] [place] - [facility] 03/15/2022 16:58:18 Appendectomy completed [facility] [place] [facility] 03/15/2022 16:58:26 Cholecystectomy completed Grijalva [facility] [place] [facility] 03/15/2022 16:58:57 section completed [facility] [place] [facility] 03/15/2022 16:59:10 Imaging Results None recorded. Procedure Notes None recorded. Medical Equipment None Reported. Allergies Allergen ID Allergen Name Allergen Category Reaction Reaction Severity Criticality Documentation Date Start Date Code Code System Note Provider Name and Address Organization Details Recorded Time 54479 Product containin g penicilli n (product) medicatio n Not available Not available Not available 03/15/2022 40730 8001 SNOMED Grijal[place] - [facility] 2 17:04:54 98154 shrimp allergeni c extract food Not available Not available Not available 03/15/2022 06503 2 RxNorm Grijal[place] [facility] 2 17:05:03 45722 wheat preparati on food,medi cation Not available Not available Not available 03/15/2022 91556 52 RxNorm Rudi [place] null, [place] - [facility] 2 17:05:11 03300 Iodinated contrast media (substanc e) medicatio n Not available Not available Not available 03/15/2022 92105 2004 SNOMED Rudi [place] - [facility] 2 17:05:46 26208 irbesarta n medicatio n Not available Not available Not available 03/15/2022 42007 RxNorm Rudi [place], [place] - [facility] [...] Updated DateTime 3 172.72 cm 32.4 kg/m2 70099.1 7 g 92 /min 16 /min 99 % 99 % 118/84 mm[Hg] Felipe Zamora [facility] 3 14:37:17 Date Recorded Body height Body mass index (BMI) Body weight Heart rate Oxygen saturation Oxygen saturation in Arterial blood by Pulse oximetry Systolic And Diastolic Provider Name and Address Organization Details Last Updated DateTime 3 172.72 cm 35.3 kg/m2 717609. 07 g 71 /min 91 % 91 % 120/80 mm[Hg] RONALD PRUITT [facility] 3 13:24:20 Date Recorded Body height Body mass index (BMI) Body weight Heart rate Respiratory rate Oxygen saturation Oxygen saturation in Arterial blood by Pulse oximetry Systolic And Diastolic Provider Name and Address Organization Details Last Updated DateTime 3 172.72 cm 35.4 kg/m2 977540. 02 g 102 /min 18 /min 97 % 97 % 128/84 mm[Hg] Felipe Zamora [facility] 3 09:39:19 Date Recorded Body height Body mass index (BMI) Body weight Oxygen saturation Oxygen saturation in Arterial blood by Pulse oximetry Heart rate Systolic And Diastolic Provider Name and Address Organization Details Last Updated DateTime 2 172.72 cm 33.8 kg/m2 936465. 51 g 96 % 96 % 81 /min 148/102 mm[Hg] RONALD PRUITT [facility] 2 15:08:57 Date Recorded Body height Body mass index (BMI) Body weight Heart rate Oxygen saturation Oxygen saturation in Arterial blood by Pulse oximetry Systolic And Diastolic Provider Name and Address Organization Details Last Updated DateTime 3 172.72 cm 35.7 kg/m2 786282. 21 g 97 /min 95 % 95 % 146/90 mm[Hg] Lela iRver [facility] 3 16:16:04 Social History Question Answer Notes LastModified by [employer] Details LastModified Time Tobacco Smoking Status Current Every Day Smoker Rudi hua [facility] 03/15/2022 17:01:02 What Is Your Level Of Caffeine Consumption? Occasional Information not available 03/19/2022 What Type Of Diet Are You Following? REGULAR Information not available 03/19/2022 How Much Tobacco Do You Smoke? 1 PPD Information not available 03/15/2022 How Many Years Have You Smoked Tobacco? 7 Information not available 03/15/2022 Sex: Unknown Functional Status Question Answer Note LastModified by [employer] Details LastModified Time Do you use any [...] ICD10 Code Diagnosis IMO Codes Diagnosis Note [id number] Phani Vega MD [facility] [address] [place] [address] 03/19/2022 15:00:17 03/19/2022 16:01:07 Varicose veins of lower extremity 31279655 I83.891 Benign ess ential hypertension 4758239 I10 well controlled todayconti nue losartan 100 mg daily Iliac vein compression syndrome 235977699 I87.1 will do venous reflex ultrasound [id number] Phani Vega MD [facility] [address] [place] [address] 1 04/23/2022 14:30:53 04/23/2022 15:55:13 Varicose veins of lower extremity 50372090 I83.891 significan t reflex disease need venous angiogram Benign ess ential hypertension 2422121 I10 well controlled todayconti nue losartan 100 mg daily Iliac vein compression syndrome 434446160 I87.1 will do venous reflex ultrasound after stress echo Essential hypertension 54637596 I10 elevated today she need cpap Obstructiv e sleep apnea syndrome 07209899 G47.33 repeat study Dyspnea on exertion 6084 5006 R06.09 Treadmill Myoview Stress test, has high [place] Risk score. Has Known CAD, or CAD risk equivalent . To look for any ischemia. Pre-surger y evaluation 935040002 Z01.818 Treadmill Myoview Stress test, has high [place] Risk score. Has Known CAD, or CAD risk equivalent . To look for any ischemia. Dyslipidemia 039143291 E 78.5 LDL is at 119 she is not taking [id number] Phani Vega MD [facility] [address] [place] [address] 1 07/30/2022 14:25:03 07/30/2022 15:00:22 Varicose veins of lower extremity 85846616 I83.891 significan t reflex disease need venous angiogram Benign ess ential hypertension 8994249 I10 well controlled todayconti nue losartan 100 mg daily Iliac vein compression syndrome 539489747 I87.1 will do venous reflex ultrasound after stress echo Essential hypertension 35627408 I10 elevated today she need cpap Obstructiv e sleep apnea syndrome 28515722 G47.33 repeat study Dyspnea on exertion 6084 5006 R06.09 Treadmill Myoview Stress test, has high [place] Risk score. Has Known CAD, or CAD risk equivalent . To look for any ischemia. Dyslipidemia 036390440 E 78.5 LDL is at 119 she is not taking meds [id number] Phani Vega MD [facility] [place] [address] 01/28/2023 12:44:13 01/28/2023 14:18:38 Varicose veins of lower extremity 20212741 I83.891 resolved Benign ess ential hypertension 8557132 I10 high BP todayshe discontinu e losartan 100 mg daily as she thought her BP is well controllSh e is on amlodipin 5 mg dailyLosar flores 50 mg daily Iliac vein compression syndrome 783087417 I87.1 will do venous reflex ultrasound after stress echo Essential hypertension 40250508 I10 elevated today she need cpap Obstructiv e sleep apnea syndrome 17916743 G47.33 repeat study Dyspnea on exertion 6084 5006 R06.09 Treadmill Myoview Stress test, has high [place] Risk score. Has Known CAD, or CAD risk equivalent . To look for any ischemia. Dyslipidemia 858145885 E 78.5 LDL is at 136 she is not taking meds 09/12 [id number] Phani Vega MD [facility] [address] [place] [address] 02/11/2023 09:33:56 02/11/2023 10:16:13 Varicose veins of lower extremity 56382553 I83.891 resolved Benign ess ential hypertension 9019052 I10 well controlled todayprevi ously she discontinu e losartan 100 mg daily as she thought her BP is well controllSh e is on amlodipin 5 mg daily and Losartan 50 mg daily Iliac vein compression syndrome 637366550 I87.1 well controlled and has no problem currently Essential hypertension 12847539 I10 well controlled today Obstructiv e sleep apnea syndrome 02044101 G47.33 repeat study Dyspnea on exertion 6084 5006 R06.09 Negative stress echo. Mild exercise impairment . Dyslipidemia 052541190 E 78.5 LDL is at 136 she is not taking meds repeat in 3 months Tachycardia 1591131 R00. 0 will consider adding metoprolol next visit if she still tachyproba diya tachy due to abdominal dis comfortabl e after her diverticul itis surgery , she is going for abdominal ultrasound tomorrow [address]013 Phani Vega MD [facility] [place] [address] 05/06/2023 16:04:19 05/06/2023 16:48:03 Varicose veins of lower extremity 12712777 I83.891 resolved Benign ess ential hypertension 2946854 I10 well controlled todayprevi ously she discontinu e losartan 100 mg daily as she thought her BP is well controllSh e is on amlodipin 5 mg daily and Losartan 50 mg daily Iliac vein compression syndrome 100349518 I87.1 well controlled and has no problem currently Essential hypertension 81644220 I10 well controlled today Obstructiv e sleep apnea syndrome 22142755 G47.33 repeat study Dyspnea on exertion 6084 5006 R06.09 Negative stress echo. Mild exercise impairment . Dyslipidemia 171171480 E 78.5 LDL is at 136 she is not taking meds 09/12wi repeat in 3 months Tachycardia 8838547 R00. 0 will consider adding metoprolol next visit if she still tachyproba diya tachy due to abdominal dis comfortabl e after her diverticul itis surgery , she is going for abdominal ultrasound tomorrow Pulmonary embolism 00899 003 I26.99 On Eliquis 5 mg bidJay [...] Guarantor Name 01/26/2025 1 [facility] [id number] Herrera Hernandez [id number] Devi Hernandez 05/03/2023 2 [place] [employer] Devi Hernandez [id number] Devi Hernandez Notes Date Note Type Note [...] has had tow previous vein stripping surgeries 0519-2000.She can not bare aliza on her right [...] has had tow previous vein stripping surgeries 4466-0492. She can not bare aliza on her right leg for the last 8 months. She is been vaping for the last 3 months. Phani Vega MD [address] [place], [address], [facility] 07/30/2022 14:59:08 01/28/2023 [...] has had tow previous vein stripping surgeries 1952-8260. She can not bare aliza on her [...] has had tow previous vein stripping surgeries 0900-2131. She can not bare aliza on her right leg for the last 8 months. She is been vaping for the last 3 months. Phani Vega MD [address] [place], [address], [facility] 02/11/2023 09:59:05 05/06/2023 [...] reports:pt previously had hernia surgery of 04/21/2023 [facility] - pt having chest pain but refuses ECG . after surgery at [facility] had PE. pt feels thats [...] has had tow previous vein stripping surgeries 1618-9547. She can not bare aliza on her right leg for the last 8 months. She is been vaping for the last 3 months. Phani Vega MD [address] [place], [address], [place] - [facility] 05/06/2023 16:41:39 OBGyn Episode No OBEpisode recorded.
--- OUTSIDE RECORDS SUMMARY | 2025-04-18 12:29 | XMS_ITS | Encounter Summary ---
Author Organization [facility] Address [address] [place] [address] [place] [address] Care Team Providers Care Systems Tester Name Role Phone Diomedes Seals MD Primary Care Provider [phone] Reason for Referral * OP/Amb RFL Auth (Routine) - Open Specialty Diagnoses / Procedures Referred By Navi franco Referred To Contact Rheumatology Diagnoses Polyarthralgia Med Edwards APRN-CNP [address] [address] Phone: tel: [facility] - Rheumatology [address] [place] [address], [facility] [address] [place] [address] Phone: tel: fax: Referral ID Status Reason Start Date Expiration Date V isits Requested Visits Authorized [id number] Open Specialty Services Required 04/18/2025 04/18/2026 1 1 Encounter Details Date Type Department Care Team (Late st Contact Info) Description 04/18/2025 Transcribe Orders [facility] - Rheumatology [address] [place] [address], [facility] [address] [place] [address] Group, [facility] Medical Polyarthralgia Social History Tobacco Use Types Packs/Day Years Used Date Smoking Tobacco: Former Cigarettes Q uit: 09/17/2006 Smokeless Tobacco: Never Alcohol Use Standard Drinks/Week Comments No 0 (1 standard drink = 0.6 oz pur e alcohol) Comments Unknown Sex and Gender Information Value Date Recorded Sex Assigned at Not on file 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 Gender Identity Not on file Sexual Orientation Not on file documented as of this encounter Plan of Treatment Scheduled Referrals Name Type Priority Associated Diagnoses Order Schedule AMB REFERRAL TO RHEUMATOLOGY Outpatient Referral Routine Polyarthralgia 1 Occurrences starting 04/18/2025 until 04/18/2026 documented as of this encounter Visit Diagnoses Diagnosis Polyarthralgia- Primary Pain in joint, multiple sites documented in this encounter Care Teams Systems Tester Relationship Specialty Start Date End Date Diomedes Seals MD [address] [place] [address] PCP - General 06/20/22 documented as of this encounter
--- OUTSIDE RECORDS SUMMARY | 2025-04-18 12:29 | XMS_ITS | Encounter Summary ---
Author Organization [facility] Address [address] [place] [address] Phone Care Team Providers Care Home Health Aide Name Role Phone Diomedes Seals MD Primary Care Provider [phone] Encounter Details Date Type Department Care Team (Late st Contact Info) Description 02/14/2025 Results Follow-Up [facility] Medicine Obstetrics and Gynecology [address] [facility] 7th Floor [address] [place] [address] Perla Kwong NP [phone] [address] [place] Pelvis Complete Social History [...] materials from doctor or pharmacy Never 12/21/2023 [facility] Utilities Answer Date Recorded In the [...] week 12/26/2023 How often do you attend [facility] or buddhist services? Never 12/26/2023 Do you belong to any clubs o r organizations such as oriental orthodox groups, unions, fraternal or athletic groups, or [...] Date Recorded PHQ-2 Total Score 1 12/26/2023 [facility] [place] [facility] - Occupational Stress [...] were you homeless or living in a group home (including now)? No 12/26/2023 Personal Safety Answer Date Recorded Have you ever been in or are you currently in a harmful physical or emotional relationship or is someone making you feel afraid or unsafe? 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
== END 2025-04-18 12:25 | disposition home or self-care (01) ==
LOC: ANHFOHIMG 12:25
PROVIDERS: PCP Family Medicine; Visit Provider Nurse Practitioner Family
DX: R92.8 Other abnormal and inconclusive findings on diagnostic imaging of breast (principal)
CPT/HCPCS: 76642; 77061; 77065; G0279

== ENCOUNTER 2025-05-09 07:26 | Outpatient (CLI) | payer OTHER, SELFPAY ==
--- NOTE | ~2025-05-09 | CT_ITS ---
EXAMINATION: CT abdomen pelvis wo con DATE: 05/09/2025 07:45 INDICATION: Abdominal wall hernia. TECHNIQUE: Computed tomography (CT) of the abdomen and pelvis was performed without intravenous contrast. Automated exposure control and iterative reconstruction technique were employed. The dose-length product was 1110.33 mGy-cm. COMPARISON: CT abdomen and pelvis 12/08/2023 FINDINGS: The visualized portions of the lung bases demonstrate minimal atelectasis. No pleural effusion. The heart size is normal. No pericardial effusion. There is diffuse hepatic steatosis. There are changes of cholecystectomy. The spleen, pancreas, adrenal glands, and kidneys are normal. There is no urolithiasis. There is an intrauterine device in expected position. There is an anastomosis in the sigmoid colon. There are no dilated loops of bowel. There are changes of appendectomy. There are no pathologically enlarged lymph nodes. There is no free intraperitoneal fluid. There is a widemouthed ve ntral hernia containing nonobstructed small and large bowel. There is mild thoracic and lumbar spondylosis. IMPRESSION: 1. Widemouthed ventral hernia containing nonobstructed small and large bowel. 2. Diffuse hepatic steatosis. Reviewed, dictated and finalized at location E.
--- OUTSIDE RECORDS SUMMARY | 2025-05-09 07:41 | XMS_ITS | Clinical Summary ---
Author Organization [facility] Address [address] [place] [address] Care Team Providers Care Professional Organizer Name Role Phone Diomedes Seals MD Primary Care Provider [phone] Allergies Active Allergy Reactions Criticality Noted Date [...] once a week 5 Active sulfamethoxazole- trimethoprim (BACTRIM) 800-160 mg per tabletIndications :Infected hernioplasty mesh, subsequent encounter Take 1 tablet by mouth 2 (two) times a day 60 tablet 1 06/27/20 25 Active Active Problems Problem Noted Date [...] dispo -12/[address] scan with AZ contrast 12/16 Starting clear liquids but continuing [...] identified at OSH on 12/04 -Transfer to [facility] for higher level of care with prior EGS admission 12/09-12/18 Pathology OSH 11/25 -Benign hypervascular ovarian cyst with adhesions Assessment & Plan (12/12/2023 12:17 PM CDT): -OSH OR 11/25, initially planned for elective surgery; c/b intraabdominal hemorrhage, OSH General Surgery c/s intra-op > Op notes obtained and uploaded in Media -Post op course c/b abscess c/f ECF -Transfer to [facility] for higher level of care - [...] 9:47 AM CDT): Relevant surgical history: (all [facility]) 06/05/22: lap sigmoidectomy 04/21/23: open VHR [...] 1:41 PM CDT): Relevant surgical history: (all [facility]) 06/05/22: lap sigmoidectomy 04/21/23: open VHR [...] IV cefe/flagyl, CT AP with IV and AZ contrast to rule out missed colon injury, LEDs and lower extremity arterial doppler 12/11 LE US studies unrevealing. CT A/P with AZ contrast pending. No nausea, continue IV antibiotics. [...] check. She would like to follow with [facility] IR and General surgery. IR drain [...] EGS and IR follow up on 12/31. [facility] Imagin/23 LE Arterial Dopplers - bilateral [...] Complete spontaneous w/o complication;Recorded Elsewhere: No Location: [facility] Source: EHR Chronic: N Practice ID: [id number] Billable Time: 04:30:00 PM Pelvic and perineal pain 01/12/2018 Overview (09/30/2024): Pelvic pain;Recorded Elsewhere: No Location: [facility] Source: EHR Chronic: N Practice ID: [id number] Billable Time: 11:00:00 AM Acute vaginitis 01/01/2016 Overview (09/30/2024): Acute vulvovaginitis;Recorded Elsewhere: No Location: [facility] Source: EHR Chronic: N Practice ID: [id number] Billable Time: 11:30:00 AM Female genital symptoms 11/02/2013 Overview (09/30/2024): Unspecified symptom associated with female genital organs;Recorded Elsewhere: No Location: [facility] Source: EHR Chronic: N Practice ID: [id number] Billable Time: 08:30:00 AM Headache 11/02/2013 Overview (09/30/2024): Headache;Recorded Elsewhere: No Location: [facility] Source: EHR Chronic: N Practice ID: [id number] Billable Time: 08:30:00 AM Hematochezia 11/02/2013 Overview (09/30/2024): Blood in stool;Recorded Elsewhere: No Location: [facility] Source: EHR Chronic: N Practice ID: [id number] Billable Time: 08:30:00 AM Sleep apnea 06/17/2012 Nontoxic single thyroid nodule 06/17/2012 Hirsutism 06/17/2012 Abdominal pain 12/17/2011 Overview (09/30/2024): Abdominal pain, other specified site;Recorded Elsewhere: No Location: [facility] Source: EHR Chronic: N Practice ID: [id number] Billable Time: 03:00:00 PM Goiter 09/11/2011 Overview (09/30/2024): Goiter, unspecified;Recorded Elsewhere: No Location: [facility] Source: EHR Chronic: N Practice ID: [id number] Billable Time: 09:15:00 AM Increased frequency of urination 09/11/2011 Overview (09/30/2024): Urinary frequency;Recorded Elsewhere: No Location: [facility] Source: EHR Chronic: N Practice ID: [id number] [...] 12/12/23) Primary Care Provider: Rossana Ireland, BUSINESS PROCESS SPECIALIST Placement or Home Health Company: N/A Current [...] Encounters Date Type Department Care Team Description 05/03/2025 Telephone [facility] Medicine Surgery [address]th [place] [address] [place] [address] Joyce Zamora CMA Follow-up 04/27/2025 3:00 PM CDT Office Visit [facility] Medicine Surgery [facility] [place] [address] [place] [id number] Attila Foster MD Infected hernioplasty mesh, subsequent encounter (Primary Dx); Ventral hernia with obstruction but no gangrene; Obesity with body mass index 30 or greater; Pain of upper abdomen 03/11/2025 Telephone [facility] Medicine Surgery [address] [place] [address] [place] [address] Joyce Zamora CMA 02/14/2025 10:54 AM CDT - 02/14/2025 11:59 PM CDT Hospital Encounter [facility] - Ultrasound [address] [facility] [address], 7th Floor, [address] [facility] [place] [address] Cyst of right ovary Discharge Disposition: Discharge to home or self care 02/14/2025 Results Follow-Up [facility] Medicine Obstetrics and Gynecology [address] [facility] 7th [address] [place] [phone] Perla Kwong NP US Pelvis Complete from Last 3 Months Immunizations Immunization Administration [...] materials from doctor or pharmacy Never 12/21/2023 [facility] Utilities Answer Date Recorded In the past 12 months has th e [employer], [employer], or water [employer] threatened to shut off services in your [...] often do you attend chur ch or islam services? Never 12/26/2023 Do you belong to any clubs o r organizations such as pentecostalism groups, unions, fraternal or athletic groups, or [...] Date Recorded PHQ-2 Total Score 1 12/26/2023 [facility] Occupat ional Health - Occupational Stress [...] any time in the past 12 m 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 Gender Identity Female 12/22/2023 9:56 AM CDT [...] Sign Reading Time Taken Comments Blood Pressure 143/84 04/27/2025 3:53 PM CDT Pulse 96 04/27/2025 3:53 PM CDT Temperature 36.4 C (97.6 F) 04/27/2025 3:53 PM CDT Respiratory Rate 14 04/27/2025 3:53 PM CDT Oxygen Saturation 99% 04/27/2025 3:53 PM CDT Inhaled Oxygen Concentration - - Weight 113.9 kg (251 lb) 04/27/2025 3:53 PM CDT Height 172.7 cm (5' 8) 04/27/2025 3:53 PM CDT Body Mass Index 38.16 04/27/2025 3:53 PM CDT Plan of Treatment Health Maintenance Due [...] 10:54 AM CDT Cyst of right ovary from Last 3 Months Results * US [...] no free fluidappreciated in the posterior cul-de-sac. Dorie Jordan NP IM US PROCEDURES Final Result from Last 3 Months Insurance [facility] H[facility]/PPO Address: [address] [address] [place] [address] [employer] [facility] [employer] [facility] HMO/PPO Address: [address] [address] [place] [address] [employer] [facility] H[facility]/PPO Address: [place] [address] [facility] H[facility]/PPO Address: [place] [address] [facility] H[facility]/PPO Address: [facility] [address] [place] [address] Advance Directives For more information, please contact: [phone] * Full Code (Latest Code Status on [...] 9:24 PM 12/19/2023 10:20 PM Care Teams Professional Organizer Relationship Specialty Start Date End Date Diomedes Seals MD [address] [place] [address] PCP - General Family Medicine 12/28/23
--- OUTSIDE RECORDS SUMMARY | 2025-05-09 07:42 | XMS_ITS | Clinical Summary ---
Author Organization [facility] Address [address] [facility] [place] [address] Care Team Providers Care Crane Operator Name Role Phone Diomedes Seals MD Primary Care Provider [phone] [facility] Affiliates and Associated Physician Practices is amultiple site organization consisting of ambulatory clinics and hospital sitesin [place], [place], [place] and [place]. This disclosure is being madepursuant to the Care Everywhere program and may not contain all information available regarding this patient. Last updated 18.[facility] Allergies Active Allergy Reactions Criticality Noted Date [...] Department Care Team Description 04/18/[address] 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 Gender Identity Not on file Sexual Orientation Not on file Plan of Treatment Upcoming Encounters Date Type Department Care Team (Late st Contact Info) Description 05/30/2025 1:20 PM REHABILITATION TEAM LEAD Office Visit [facility] Health Medical Group - Rheumatology [address] [facility], [address] [place] [address] Vincent Hansen, [address] [place] [address] Health Maintenance Due Date Last Done Comments [...] 09/17/2016 09/18/2011 DEPRESSION SCREENING 07/21/2024 COVID-19 VACCINE (2024-2 6 season) 2025 11/25/2020, 11/03/2020 INFLUENZA VACCINE [...] Comments LIPID PROFILE Routine 09/18/2011 8:02 AM REHABILITATION TEAM LEAD from Last 3 Months or Most Recently Relevant to Health Maintenance Results * (ABNORMAL) LIPID PROFILE (09/18/2011 8:02 AM REHABILITATION TEAM LEAD) [facility] Cholesterol Total 176 125 - 200 mg/dL [facility] Comment: Test Performed at: [facility] [address] [place] [id number] BINA LEVINE DO HDL 32(L) > OR [...] Venous blood specimen (specimen) 09/18/2011 8:02 AM REHABILITATION TEAM LEAD 09/18/2011 8:03 AM REHABILITATION TEAM LEAD Joe Gonzalez MD LAB - CHEMISTRY ORDERABLES Fin al Result [facility] [id number] from Last 3 Months or Most Recently Relevant to Health Maintenance Insurance MEDICAID - [facility] MEDICAID - [place] [facility] * Guarantor: ALIS HERNANDEZ Account Type Relation to Patient Date of Phone Billing Address Personal/Family [address] [place], [place] [phone] SELF PAY NO INSURANCE Member Subscriber Plan / Payer (Ef fective for All Dates) Name:Alis Hernandez T Member ID:Not on file Relation to Subscriber:Not on file Name:ALIS HERNANDEZ Subscriber ID:Not on file Address: [address] [place] [address] Payer ID:Not on file Group ID:Not on file Type:Self Pay Address: [facility] * Guarantor: ALIS HERNANDEZ Account Type Relation to Patient Date of Phone Billing Address Personal/Family [address] [place], [place] [phone] SELF PAY NO INSURANCE Member Subscriber Plan / Payer (Ef fective for All Dates) Name:Alis Hernandez T Member ID:Not on file Relation to Subscriber:Not on file Name:ALIS HERNANDEZ Subscriber ID:Not on file Address: [address] [place] [address] Payer ID:Not on file Group ID:Not on file Type:Self Pay Address: [facility] * Guarantor: ALIS HERNANDEZ Relation to Patient Date of Phone Billing Address Personal/Family [address] [place] [phone] SELF PAY NO INSURANCE Member Subscriber Plan / Payer (Ef fective for All Dates) Name:Alis Hernandez Member ID:Not on file Relation to Subscriber:Not on file Name:ALIS HERNANDEZ Subscriber ID:Not on file Address: [address] [place] [address] Payer ID:Not on file Group ID:Not on file Type:Self Pay Address: [facility] Care Teams Crane Operator Relationship Specialty Start Date End Date Diomedes Seals MD [address] [place] [phone] PCP - General 06/20/22
== END 2025-05-09 07:27 | disposition home or self-care (01) ==
PROVIDERS: PCP Family Medicine
DX: K43.6 Other and unspecified ventral hernia with obstruction, without gangrene (principal)
CPT/HCPCS: 74176

== ENCOUNTER 2025-05-18 23:11 | Emergency (ER) | payer OTHER, SELFPAY ==
--- NOTE | ~2025-05-18 | CT_ITS ---
EXAMINATION: CT lumbar spine wo con DATE: 05/19/2025 02:45 INDICATION: Low back pain. TECHNIQUE: Computed tomography (CT) of the lumbar spine was performed without intravenous contrast. Automated exposure control and iterative reconstruction technique were employed. The dose-length product was 1303.97 mGy-cm. COMPARISON: None FINDINGS: There is an intrauterine device in expected position. Alignment is normal. There is mild chronic anterior wedging of T11 vertebral body. There is mildly decreased disc height at T10-T11, T11-T12, and L4-L5. The following disc levels are specifically discussed: L1-L2: The disc does not extend beyond the endplate margin. There is mild bilateral facet joint osteoarthritis. There is no neural foraminal stenosis. There is no central canal stenosis. L2-L3: The disc is bulging. There is severe right and moderate left facet joint osteoarthritis. There is mild bilateral neural foraminal stenosis. There is no central canal stenosis. L3-L4: The disc is bulging. There is severe bilateral facet joint osteoarthritis. There is mild bilateral neural foraminal stenosis. There is mild central canal stenosis. L4-L5: The disc is bulging. There is severe bilateral facet joint osteoarthritis. There is mild bilateral neural foraminal stenosis. There is mild central canal stenosis. L5-S1: The disc is mildly bulging. There is severe bilateral facet joint osteoarthritis. There is mild bilateral neural foraminal stenosis. There is no central canal stenosis. IMPRESSION: 1. Mild lumbar spondylosis. Reviewed, dictated and finalized at location E. IMPRESSION: 1. Mild lumbar spondylosis.
[2025-05-18 23:30] VITALS: BP 136/85; PULSE 100; RESP 18; TEMP 36.8; O2SAT 99
[2025-05-19] VITALS (8 sets, daily range): BP systolic 111–145; BP diastolic 66–94; PULSE 89–91; RESP 14–18; O2SAT 94–99
--- OUTSIDE RECORDS SUMMARY | 2025-05-19 01:44 | XMS_ITS | Clinical Summary ---
Author Organization [facility] Address [address] [facility] [place] [address] Care Team Providers Care Water Safety Teacher Name Role Phone Diomedes Seals MD Primary Care Provider [phone] Source Comments [facility] Affiliates and Associated Physician Practices is amultiple site organization consisting of ambulatory clinics and hospital sitesin [place], [place], [place] and [place]. This disclosure is being madepursuant to the Care Everywhere program and may not contain all information available regarding this patient. 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 Gender Identity Female 05/12/2025 7:30 AM CDT Sexual Orientation Not on file Plan of Treatment Upcoming Encounters Date Type Department Care Team (Late st Contact Info) Description 05/30/2025 1:20 PM DIETETIC ASSISTANT Office Visit [facility] Health Medical Group - Rheumatology [address] [facility], [address] [place] [address] Vincent Hansen, DO [address] [place] [address] Health Maintenance Due Date Last [...] 09/17/2016 09/18/2011 DEPRESSION SCREENING 07/21/2024 COVID-19 VACCINE ( - 2024-2 6 season) 2025 11/25/2020, 11/03/2020 [...] Comments LIPID PROFILE Routine 09/18/2011 8:02 AM DIETETIC ASSISTANT from Last 3 Months or Most Recently Relevant to Health Maintenance Results * (ABNORMAL) LIPID PROFILE (09/18/2011 8:02 AM DIETETIC ASSISTANT) [facility] Cholesterol Total 176 125 - 200 mg/dL [facility]) Comment: Test Performed at: [employer] [facility] [address] [place] [address] BINA LEVINE DO HDL 32(L) > OR [...] Venous blood specimen (specimen) 09/18/2011 8:02 AM DIETETIC ASSISTANT 09/18/2011 8:03 AM DIETETIC ASSISTANT Joe Gonzalez MD LAB - CHEMISTRY ORDERABLES Fin al Result [facility] [phone] from Last 3 Months or Most Recently Relevant to Health Maintenance Insurance MEDICAID - [facility] MEDICAID - [place] [facility] * Guarantor: ALIS HERNANDEZ Account Type Relation to Patient Date of Phone Billing Address Personal/Family [address] [place] [address] SELF PAY NO INSURANCE Member Subscriber Plan / Payer (Ef fective for All Dates) Name:Alis Hernandez T Member ID:Not on file Relation to Subscriber:Not on file Name:ALIS HERNANDEZ Subscriber ID:Not on file Address: [address] [place] [address] Payer ID:Not on file Group ID:Not on file Type:Self Pay Address: [facility] * Guarantor: ALIS HERNANDEZ Account Type Relation to Patient Date of Phone Billing Address Personal/Family [address] [place] [address] SELF PAY NO INSURANCE Member Subscriber Plan / Payer (Ef fective for All Dates) Name:Alis Hernandez Member ID:Not on file Relation to Subscriber:Not on file Name:ALIS HERNANDEZ Subscriber ID:Not on file Address: [address] [place] [address] Payer ID:Not on file Group ID:Not on file Type:Self Pay Address: [facility] * Guarantor: ALIS HERNANDEZ Relation to Patient Date of Phone Billing Address Personal/Family [address] [place] [phone] SELF PAY NO INSURANCE Member Subscriber Plan / Payer (Ef fective for All Dates) Name:Alis Hernandez Member ID:Not on file Relation to Subscriber:Not on file Name:ALIS HERNANDEZ Subscriber ID:Not on file Address: [address] [place] [phone] Payer ID:Not on file Group ID:Not on file Type:Self Pay Address: [facility] Care Teams Water Safety Teacher Relationship Specialty Start Date End Date Diomedes Seals MD [address] [place] [address] PCP - General 06/20/22
--- OUTSIDE RECORDS SUMMARY | 2025-05-19 01:44 | XMS_ITS | Data Portability ---
Author Organization [place] - [facility] OFFICE Address [address] [place] [address] Care Team Providers Care Machine Baster Name Role Phone VOLODYMYR MAS Primary Care Provider [phone] Assessment Encounter Date Assessment Date Assessment LastModified [...] 50 mg tablet 2022 023 ELENA Mendez [facility] [address] [facility], [place], [address], 14:17:49 Patient TargetsNo targets recorded. Patient Instructions Encounter Date Encounter Id Patient Instructions Last Modified By Organization Details Last Modified Time 04/23/2022 [id number] Exercise advised Low cholesterol diet advised Low sodium diet advised. matilde Not available 04/23/2022 15:45:40 07/30/2022 [id number] Weight loss 20 pounds Exercise advised Low cholesterol diet advised Low sodium diet advised. [email or web address] Not available 07/30/2022 14:58:04 01/28/2023 [id number] Exercise advised Low cholesterol diet advised Low sodium diet advised. eyassin Not available 01/28/2023 14:16:47 02/11/2023 [id number] Exercise advised Low cholesterol diet advised Low sodium diet advised. [email or web address] Not available 02/11/2023 09:57:16 05/06/2023 [id number] Exercise advised Low cholesterol diet advised Low [...] 16:54:03 Body mass index 30+ - obesity 201300502 Active 2021 Grijalva [place]esto [place] - [facility] 2 16:54:12 Depressive disorder 90438856 Active 2021 G[place] [facility] 2 16:54:20 Chronic back pain 047809970 Active 2021 G[place] [facility] 2 15:17:56 Chronic headache disorder 351281368 Active 2021 G[place] [facility] 2 15:18:29 Diverticuli tis 089572567 Active 2021 Grij[place] [facility] 3 02:03:29 Diverticulo sis of colon 376509458 Active 2021 Grij[place] [facility] 2 16:55:20 Disorder of gallbladder 14361750 Active 2021 Grijal[place] [facility] 2 16:55:49 Gastroesoph ageal reflux disease 178703206 Active 2021 G[place] [facility] 2 16:55:56 Hemorrhoids 49604241 Active 2021 Grij[place] [facility] 2 16:56:09 Essential hypertensio n 02439201 Active 2021 G[place] [facility] 2 16:56:19 Cyst of ovary 61398112 Active 2021 Grij[place] [facility] 2 16:56:31 Seizure 30730289 Active 2021 G[place] [facility] 2 16:56:39 Obstructive sleep apnea syndrome 31910492 Active 2021 Grijal[place] [facility] 2 15:18:04 Dyslipidemi a 952052181 Active 2022 Grij[place] [facility] 3 02:03:41 Iliac vein compression syndrome 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 Procedures Surgical History Date Name Laterality Status Provider Name and Address Organization Details Recorded Time [facility] [place] [facility] 03/15/[facility] 16:57:51 endoscopy completed Grijalva [facility] 03/15/2022 16:58:00 stripping of vein completed [place]rij[place] [facility] [place] [facility] 03/15/2022 16:58:18 Appendectomy completed [facility] [place] [facility] 03/15/2022 16:58:26 Cholecystectomy [place] [facility] [place] [facility] 03/15/2022 16:58:57 section completed [facility] [place] [facility] 03/15/2022 16:59:10 Imaging Results None recorded. Procedure Notes None recorded. Medical Equipment None Reported. Allergies Allergen ID Allergen Name Allergen Category Reaction Reaction Severity Criticality Documentation Date Start Date Code Code System Note Provider Name and Address Organization Details Recorded Time 15738 Product containin g penicilli n (product) medicatio n Not available Not available Not available 03/15/2022 88065 8001 SNOMED Grijal[place] - [facility] 2 17:04:54 53093 shrimp allergeni c extract food Not available Not available Not available 03/15/2022 40703 2 RxNorm Grijal[place] - [facility] 2 17:05:03 37446 wheat preparati on food,medi cation Not available Not available Not available 03/15/2022 11782 52 RxNorm Rudi [place] null, [place] - [facility] 2 17:05:11 69352 Iodinated contrast media (substanc e) medicatio n Not available Not available Not available 03/15/2022 24880 2004 SNOMED Rudi [place] - [facility] 2 17:05:46 11672 irbesarta n medicatio n Not available Not available Not available 03/15/2022 11784 RxNorm Rudi [place], [place] - [facility] [...] Updated DateTime 3 172.72 cm 32.4 kg/m2 26120.1 7 g 92 /min 16 /min 99 % 99 % 118/84 mm[Hg] Felipe Zamora [facility] 3 14:37:17 Date Recorded Body height Body mass index (BMI) Body weight Heart rate Oxygen saturation Oxygen saturation in Arterial blood by Pulse oximetry Systolic And Diastolic Provider Name and Address Organization Details Last Updated DateTime 3 172.72 cm 35.3 kg/m2 147350. 07 g 71 /min 91 % 91 % 120/80 mm[Hg] RONALD PRUITT [facility] 3 13:24:20 Date Recorded Body height Body mass index (BMI) Body weight Heart rate Respiratory rate Oxygen saturation Oxygen saturation in Arterial blood by Pulse oximetry Systolic And Diastolic Provider Name and Address Organization Details Last Updated DateTime 3 172.72 cm 35.4 kg/m2 308707. 02 g 102 /min 18 /min 97 % 97 % 128/84 mm[Hg] Felipe Zamora [facility] 3 09:39:19 Date Recorded Body height Body mass index (BMI) Body weight Oxygen saturation Oxygen saturation in Arterial blood by Pulse oximetry Heart rate Systolic And Diastolic Provider Name and Address Organization Details Last Updated DateTime 2 172.72 cm 33.8 kg/m2 071974. 51 g 96 % 96 % 81 /min 148/102 mm[Hg] RONALD PRUITT [facility] 2 15:08:57 Date Recorded Body height Body mass index (BMI) Body weight Heart rate Oxygen saturation Oxygen saturation in Arterial blood by Pulse oximetry Systolic And Diastolic Provider Name and Address Organization Details Last Updated DateTime 3 172.72 cm 35.7 kg/m2 122291. 21 g 97 /min 95 % 95 % 146/90 mm[Hg] Lela River [facility] 3 16:16:04 Social History Question Answer Notes LastModified by [employer] Details LastModified Time Tobacco Smoking Status Current Every Day Smoker Rudi hua [facility] 03/15/2022 17:01:02 What Is Your Level Of Caffeine Consumption? Occasional Information not available 03/19/2022 What Type Of Diet Are You Following? REGULAR Information not available 03/19/2022 How Much Tobacco Do You Smoke? 1 PPD Information not available 03/15/2022 How Many Years Have You Smoked Tobacco? 7 Information not available 03/15/2022 Sex: Unknown Functional Status Question Answer Note LastModified by [employer] Details LastModified Time Do you use any [...] available 2021 17:00:03 Medical History Condition Response Depression Y Peripheral Arterial Disease Y Sleep Apnea Y Hypertension Y Gynecological HistoryNo gynecological history recorded. Obstetrics History GPAL:G 0 P 0 0 0 0 Past Encounters Encounter ID Performer Location Encounter Start Date Encounter Closed Date Diagnosis/Indication Diagnosis SNOMED-CT Code Diagnosis ICD10 Code Diagnosis IMO Codes Diagnosis Note [id number] Phani Vega MD [facility] [address] [place] [address] 03/19/2022 15:00:17 03/19/2022 16:01:07 Varicose veins of lower extremity 41790490 I83.891 Benign ess ential hypertension 3168731 I10 well controlled todayconti nue losartan 100 mg daily Iliac vein compression syndrome 376712062 I87.1 will do venous reflex ultrasound [id number] Phani Vega MD [facility] [address] [place] [address] 1 04/23/2022 14:30:53 04/23/2022 15:55:13 Varicose veins of lower extremity 89893563 I83.891 significan t reflex disease need venous angiogram Benign ess ential hypertension 0421460 I10 well controlled todayconti nue losartan 100 mg daily Iliac vein compression syndrome 592029574 I87.1 will do venous reflex ultrasound after stress echo Essential hypertension 53926570 I10 elevated today she need cpap Obstructiv e sleep apnea syndrome 54401052 G47.33 repeat study Dyspnea on exertion 6084 5006 R06.09 Treadmill Myoview Stress test, has high [place] Risk score. Has Known CAD, or CAD risk equivalent . To look for any ischemia. Pre-surger y evaluation 691283397 Z01.818 Treadmill Myoview Stress test, has high [place] Risk score. Has Known CAD, or CAD risk equivalent . To look for any ischemia. Dyslipidemia 593048706 E 78.5 LDL is at 119 she is not taking [id number] Phani Vega MD [facility] [address] [place] [address] 07/30/2022 14:25:03 07/30/2022 15:00:22 Varicose veins of lower extremity 31607574 I83.891 significan t reflex disease need venous angiogram Benign ess ential hypertension 6268137 I10 well controlled todayconti nue losartan 100 mg daily Iliac vein compression syndrome 325061755 I87.1 will do venous reflex ultrasound after stress echo Essential hypertension 93765299 I10 elevated today she need cpap Obstructiv e sleep apnea syndrome 60184085 G47.33 repeat study Dyspnea on exertion 6084 5006 R06.09 Treadmill Myoview Stress test, has high [place] Risk score. Has Known CAD, or CAD risk equivalent . To look for any ischemia. Dyslipidemia 910260507 E 78.5 LDL is at 119 she is not taking meds [id number] Phani Vega MD [facility] OFF[facility] [place] [address] 01/28/2023 12:44:13 01/28/2023 14:18:38 Varicose veins of lower extremity 35836918 I83.891 resolved Benign ess ential hypertension 7175797 I10 high BP todayshe discontinu e losartan 100 mg daily as she thought her BP is well controllSh e is on amlodipin 5 mg dailyLosar flores 50 mg daily Iliac vein compression syndrome 765415040 I87.1 will do venous reflex ultrasound after stress echo Essential hypertension 27154180 I10 elevated today she need cpap Obstructiv e sleep apnea syndrome 28987253 G47.33 repeat study Dyspnea on exertion 6084 5006 R06.09 Treadmill Myoview Stress test, has high [place] Risk score. Has Known CAD, or CAD risk equivalent . To look for any ischemia. Dyslipidemia 485619448 E 78.5 LDL is at 136 she is not taking meds 09/12 [id number] Phani Vega MD [facility] [address] [place] [address] 02/11/2023 09:33:56 02/11/2023 10:16:13 Varicose veins of lower extremity 63972804 I83.891 resolved Benign ess ential hypertension 6900053 I10 well controlled todayprevi ously she discontinu e losartan 100 mg daily as she thought her BP is well controllSh e is on amlodipin 5 mg daily and Losartan 50 mg daily Iliac vein compression syndrome 127802390 I87.1 well controlled and has no problem currently Essential hypertension 42565480 I10 well controlled today Obstructiv e sleep apnea syndrome 68438203 G47.33 repeat study Dyspnea on exertion 6084 5006 R06.09 Negative stress echo. Mild exercise impairment . Dyslipidemia 255990987 E 78.5 LDL is at 136 she is not taking meds repeat in 3 months Tachycardia 6996287 R00. 0 will consider adding metoprolol next visit if she still tachyproba diya tachy due to abdominal dis comfortabl e after her diverticul itis surgery , she is going for abdominal ultrasound tomorrow [id number] Phani Vega MD [facility] [place] [address] 05/06/2023 16:04:19 05/06/2023 16:48:03 Varicose veins of lower extremity 59909100 I83.891 resolved Benign ess ential hypertension 4724044 I10 well controlled todayprevi ously she discontinu e losartan 100 mg daily as she thought her BP is well controllSh e is on amlodipin 5 mg daily and Losartan 50 mg daily Iliac vein compression syndrome 111908940 I87.1 well controlled and has no problem currently Essential hypertension 36073061 I10 well controlled today Obstructiv e sleep apnea syndrome 93349136 G47.33 repeat study Dyspnea on exertion 6084 5006 R06.09 Negative stress echo. Mild exercise impairment . Dyslipidemia 783199653 E 78.5 LDL is at 136 she is not taking meds 09/12wi repeat in 3 months Tachycardia 1929815 R00. 0 will consider adding metoprolol next visit if she still tachyproba diya tachy due to abdominal dis comfortabl e after her diverticul itis surgery , she is going for abdominal ultrasound tomorrow Pulmonary embolism 40298 003 I26.99 On Eliquis 5 mg bidJay [...] Member ID Guarantor Name 01/26/2025 1 [facility] [id number] Herrera Hernandez [id number] Devi Hernandez 05/03/2023 2 [place] [employer] Devi Hernandez [id number] Devi Hernandez Notes Date Note Type Note [...] has had tow previous vein stripping surgeries 7762-8167.She can not bare aliza on her right [...] has had tow previous vein stripping surgeries 7200-3078. She can not bare aliza on her right leg for the last 8 months. She is been vaping for the last 3 months. Phani Vega MD [address] [place], [address], [facility] - [facility] 07/30/2022 [...] has had tow previous vein stripping surgeries 1280-2085. She can not bare aliza on her [...] has had tow previous vein stripping surgeries 2875-8296. She can not bare aliza on her right leg for the last 8 months. She is been vaping for the last 3 months. Phani Vega MD [address] [place], [address], [facility] - [facility] 02/11/2023 [...] reports:pt previously had hernia surgery of 04/21/2023 [facility] - pt having chest pain but refuses ECG . after surgery at [facility] had PE. pt feels thats the [...] has had tow previous vein stripping surgeries 6961-2620. She can not bare aliza on her right leg for the last 8 months. She is been vaping for the last 3 months. Phani Vega MD [address] [place], [address], [place] - [facility] 05/06/2023 16:41:39 OBGyn Episode No OBEpisode recorded.
--- OUTSIDE RECORDS SUMMARY | 2025-05-19 01:44 | XMS_ITS | Data Portability ---
Author Organization [facility] Address [address] [place] [address] Care Team Providers Care Stem Maker Name Role Phone VOLODYMYR MAS Primary Care Provider [phone] Assessment Encounter Date Assessment Date Assessment LastModified by Organization Details LastModified Time 01/29/2023 01/29/2023 Annual gynecological exam performed. Patient will come back in a year unless there are new symptoms. Not available 01/29/2023 15:40:17 Plan of Treatment Reminders Order Date Submit Date Provider Last Modified By Organization Details Last Modified Time Details Appointments None recorded. Lab ova1, serum 2023 024 [facility] (Lab), [address] [place], [address], 4 13:08:41 testosteron e, total, serum 2023 024 [facility] (Lab), [address] [place], [address], 4 08:01:17 Referral None recorded. Procedures None recorded. Surgeries laparoscopi c ovarian cystectomy (SURG) 2023 024 [facility], [address], [place], [address], 4 19:38:14 Imaging US, pelvis 2023 024 [email or web address] [address], [address], [place], [address], 4 18:11:47 US, transvagina l 2023 024 [email or web address] [address], [address], [place], [address], 4 18:11:47 MAMMO, screening, bilateral 2022 023 [facility], [address], [address], [place], [address], 3 13:49:52 Medication Orders None recorded. 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 Not Available [facility] (Lab) [address], [place], [address], 01/30/2023 17:19:26 10/02/19 24 2023 TESTO STERO NE, TOTAL testosterone , total 43 NG/dL 0-[address] [facility] (Lab) [address] [facility], [place], [address], 10/03/2023 08:01:17 10/24/19 24 10/24/2023 OVA 1 scan result See Scanne d Result Not Available [facility] (Lab) [address] [facility], [place], [address], 10/29/2023 13:08:41 04/29/20 23 04/29/2023 MAMMO , scree cora, bilat eral No observ ation record ed. [email or web address] [address], [place], [address], 2023 11:18:12 05/12/20 23 05/12/2023 US, breas t, unila teral No observ ation record ed. [address] [address], [place], [address], 2023 11:18:12 10/13/19 24 10/13/2023 US, pelvi s No observ ation record ed. [email or web address] [facility] [address], [place], [address], 10/13/2023 18:22:08 10/13/19 24 10/13/2023 US, trans vagin al No observ ation record ed. [email or web address] [facility] [address], [place], [address], 10/13/2023 18:21:54 10/13/19 24 10/13/2023 US, pelvi s No observ ation record ed. [email or web address] [address], [place], [address], 10/14/2023 15:10:45 11/26/19 24 11/26/2023 XR, abdom en + pelvi s No observ ation record ed. [email or web address] [address], [address], 11/26/2023 21:53:59 11/28/19 24 11/28/2023 XR, chest , 1 view No observ ation record ed. [address], [place], [address], 12/16/2023 14:57:21 11/28/19 24 11/28/2023 XR, chest , 1 view No observ ation record ed. [address], [place], [address], 12/16/2023 14:56:54 11/28/19 24 11/28/2023 CT, chest + abdom en + pelvi s, w/o contr ast No observ ation record ed. [address] [address], [place], [address], 12/16/2023 12:10:37 11/29/19 24 11/28/2023 CT, chest + abdom en + pelvi s, w/o contr ast No observ ation record ed. [address] [address], [place], [address], 12/16/2023 12:10:14 11/29/19 24 11/29/2023 CT, chest + abdom en + pelvi s, w/o contr ast No observ ation record ed. [address] [facility], [place], [address], 12/16/2023 12:09:45 11/29/19 24 11/29/2023 trans -thor acic echoc ardio gram (TTE) (PROC ) No observ ation record ed. [address] [address], [place], [address], 12/11/2023 16:39:34 11/29/19 24 11/29/2023 CT, angio gram, chest , w/o contr ast No observ ation record ed. [address] [address], [place], [address], 12/11/2023 16:37:34 11/29/19 24 11/29/2023 XR, abdom en + pelvi s No observ ation record ed. [address], [place], [address], 12/11/2023 16:02:26 11/30/19 24 11/30/2023 XR, chest , 1 view No observ ation record ed. [address] [address], [place], [address], 12/11/2023 15:57:33 12/05/19 24 12/05/2023 CT, abdom en + pelvi s, w/o contr ast No observ ation record ed. [address] [address], [place], [address], 12/11/2023 16:20:23 12/05/19 24 12/05/2023 inser tion of tempo rary indwe lling bladd er ranjan ter, compl icate d (PROC ) No observ ation record ed. [address] [address], [place], [address], 12/11/2023 16:05:38 12/08/19 24 12/08/2023 CT, abdom en + pelvi s, w/ contr ast No observ ation record ed. [address] [address], [place], [address], 12/08/2023 21:51:16 12/09/19 24 12/08/2023 CT, abdom en + pelvi s, w/ contr ast No observ ation record ed. [address] [address], [place], [address], 12/09/2023 21:30:46 Result Notes None recorded. Problems Name Problem SNOMED Code Status Onset Date Resolution Date Notes Provider Name and Address Organization Details Recorded Time Increase d frequenc y of urinatio n [id number] Completed 201112/19/2020 Urinary frequency ;Recorded Elsewhere : No Locati on: [facility] So urce: EHR Chron ic: N Practic e ID: 0001 Bill able Time: 09:15:00 AM Nannette Jiménez [facility] 15:20:43 Screenin g for malignan t neoplasm of cervix Completed 201112/19/2020 Screening for malignant neoplasms of the cervix;Re corded Elsewhere : No Locati on: [facility] So urce: EHR Chron ic: N Practic e ID: 0001 Bill able Time: 09:15:00 AM Nannette Quentin [facility] 15:20:52 Goiter [id number] Completed 201112/19/2020 Goiter, unspecifi ed;Record ed Elsewhere : No Locati on: [facility] So urce: EHR Chron ic: N Practic e ID: 0001 Bill able Time: 09:15:00 AM Nannette Jiménez [facility] 15:20:39 Abdomina l pain 58265041 Completed 201112/19/2020 Abdominal pain, other specified site;Cristopher rded Elsewhere : No Locati on: [facility] So urce: EHR Chron ic: N Practic e ID: 0001 Bill able Time: 03:00:00 PM Nannette Quentin [facility] 15:20:25 Pregnanc y test negative [id number] Completed 201112/19/2020 examinati on or test, negative result;Re corded Elsewhere : No Locati on: [facility] So urce: EHR Chron ic: N Practic e ID: 0001 Bill able Time: 09:30:00 AM Nannette Jiménez [facility] 15:20:49 Adult health examinat ion Completed 201112/19/2020 Routine Medical Exam;Cristopher rded Elsewhere : No Locati on: [facility] So urce: EHR Chron ic: N Practic e ID: 0001 Bill able Time: 09:30:00 AM Nannette Jiménez [facility] 15:20:30 Hematoch ezia [id number] Completed 201312/19/2020 Blood in stool;Rec orded Elsewhere : No Locati on: [facility] So urce: EHR Chron ic: N Practic e ID: 0001 Bill able Time: 08:30:00 AM Nannette Jiménez [facility] 15:20:42 Speciali zed medical examinat ion Completed 201312/19/2020 Gynecolog ical Examinati on;Record ed Elsewhere : No Locati on: [facility] So urce: EHR Chron ic: N Practic e ID: 0001 Bill able Time: 08:30:00 AM Nannette Jiménez [facility] 15:20:56 Female genital organ symptoms [id number] Completed 201312/19/2020 Unspecifi ed symptom associate d with female genital organs;Re corded Elsewhere : No Locati on: [facility] So urce: EHR Chron ic: N Practic e ID: 0001 Bill able Time: 08:30:00 AM Nannette Jiménez [facility] 15:20:35 Headache 60165008 Completed 201312/19/2020 Headache; Recorded Elsewhere : No Locati on: [facility] So urce: EHR Chron ic: N Practic e ID: 0001 Bill able Time: 08:30:00 AM Nannette Jiménez [facility] 15:20:40 Removal of intraute rine device Completed 201312/19/2020 REMOVAL OF IUD;Recor ded Elsewhere : No Locati on: [facility] So urce: EHR Chron ic: N Practic e ID: 0001 Bill able Time: 11:45:00 AM Nannette Quentin [facility] 15:20:50 Insertio n of intraute rine contrace ptive device Completed 201312/19/2020 INSERTION OF IUD;Recor ded Elsewhere : No Locati on: [facility] So urce: EHR Chron ic: N Practic e ID: 0001 Bill able Time: 08:00:00 AM Nannette Jiménez [facility] 15:20:45 Family planning surveill ance Completed 201312/19/2020 Contracep tive surveilla nce, unspecifi ed;Record ed Elsewhere : No Locati on: [facility] So urce: EHR Chron ic: N Practic e ID: 0001 Bill able Time: 08:45:00 AM Nannette Jiménez [facility] 15:20:[address] Concept Completed 201512/19/2020 Encntr for director call exam (general) (routine) w/o abn findings; Recorded Elsewhere : No Locati on: [facility] So urce: EHR Chron ic: N Practic e ID: 0001 Bill able Time: 11:30:00 AM Nannette Jiménez [facility] 15:20:55 Acute vaginiti s [id number] Completed 201512/19/2020 Acute vulvovagi nitis;Rec orded Elsewhere : No Locati on: [facility] So urce: EHR Chron ic: N Practic e ID: 0001 Bill able Time: 11:30:00 AM Nannette Jiménez [facility] 15:20:[address] Concept Completed 201612/19/2020 Encntr for general adult medical exam w/o abnormal findings; Recorded Elsewhere : No Locati on: [facility] So urce: EHR Chron ic: N Practic e ID: 0001 Bill able Time: 11:00:00 AM Nannette Jiménez [facility] 15:20:53 Pelvic and perineal pain [id number] Completed 201712/19/2020 Pelvic pain;Cristopher rded Elsewhere : No Locati on: [facility] So urce: EHR Chron ic: N Practic e ID: 0001 Bill able Time: 11:00:00 AM Nannette Jiménez [facility] 15:20:47 Miscarri age [id number] Completed 201812/19/2020 Complete spontaneo us w/o complicat ion;Recor ded Elsewhere : No Locati on: [facility] So urce: EHR Chron ic: N Practic e ID: 0001 Bill able Time: 04:30:00 PM Nannette Jiménez [facility] 15:20:46 Evaluati on finding Completed 201812/19/2020 Hematuria , unspecifi ed;Record ed Elsewhere : No Locati on: [facility] So urce: EHR Chron ic: N Practic e ID: 0001 Bill able Time: 04:30:00 PM Nannette Jiménez [facility] 15:20:32 Finding of menstrua l bleeding Completed 201912/19/2020 Menorrhag ia;Record ed Elsewhere : No Locati on: [facility] So urce: EHR Chron ic: N Practic e ID: 0001 Bill able Time: 03:30:00 PM Nannette Jiménez [facility] 15:20:37 Problem Notes None recorded. Procedures Surgical History Date Name Laterality Status Provider Name and Address Organization Details Recorded Time 024 LAPAROSCOPIC OVARIAN CYSTECTOMY (SURG) completed Emrewander Bradley [facility] 11/27/2023 09:28:27 024 LAPAROSCOPIC OVARIAN CYSTECTOMY (SURG) completed Emre Bradley [facility] 11/27/2023 09:28:14 023 hernia repair completed Vidhi Garza [facility] [address], [place], [address], [facility] 2023 11:19:54 022 procedure on colon completed Nannette Callahan [facility] 08/12/2022 11:39:06 022 Date of Last Mammogram completed Nikki Bee [facility] 01/29/2023 15:40:43 022 Date of Last Pap Smear completed Nikki Bee [facility] 01/29/2023 15:41:28 020 IUD Insertion completed Vidhi Garza [facility] [address], [place], [address], [facility] 12/22/2019 13:43:45 011 Appendectomy completed Arianne Craig [facility] 09/08/2021 12:19:53 009 section completed Arianne Craig [facility] 09/08/2021 12:20:23 005 [facility] 09/08/2021 12:19:46 005 varicose vein operation completed Ariannekasandra Craig [facility] 09/07/2021 17:57:58 002 section completed Arianne Craig [facility] 09/08/2021 12:20:31 001 Dilation and Curettage completed Ariannekasandra Craig [facility] 09/08/2021 12:20:05 980 transfusion of blood product completed Ariannekasandra Craig [facility] 09/08/2021 12:19:58 Imaging Results None recorded. Procedure Notes None recorded. Medical Equipment None Reported. Allergies Allergen ID Allergen Name Allergen Category Reaction Reaction Severity Criticality Documentation Date Start Date Code Code System Note Provider Name and Address Organization Details Recorded Time 87072 Gluten (substanc e) food,medi cation abdominal pain severe Not available 12/19/2020 45231 004 SNOMED Nannette Jiménez [facility], [facility] 1 15:15:52 827 Iodinated contrast media (substanc e) medicatio n cough moderate Not available 12/21/2019 76071 2004 SNOMED [address]bi [address]Rd [facility], [facility] 0 15:23:38 Medications Name Sig [...] Prescrib ed Elsewher e: Yes Loca tion: [facility] odify By: cheyenne Quano unter DateTime : [...] Prescrib ed Elsewher e: Yes Loca tion: [facility] odify By: cheyenne lli Enco unter DateTime [...] Prescrib ed Elsewher e: Yes Loca tion: [facility] odify By: taylor roberts DateTime : 11/03/19 [...] Prescrib ed Elsewher e: Yes Loca tion: [facility] odify By: cheyenne thorpe DateTime : 05/12/20 [...] Prescrib ed Elsewher e: Yes Loca tion: [facility] odify By: artur Peñaloza ncounter DateTime : [...] ed Elsewher e: Yes [facility] By: artur Peñaloza ncounter DateTime : 12/27/19 15 02:00:00 PM Not Available Not Available Not Available B Complex 100 01/15 completed Not Available Not Available Not Available B Complex 1.7 mg-20 mg-2 mg-1.2 mg/mL sublingua l liquid 12/19 completed Prescrib ed Elsewher e: Yes [facility] By: parker Peñaloza ncounter DateTime : 01/01/20 16 11:30:00 AM Not Available Not Available Not Available Allergy Relief (cetirizi ne) 12/19 completed Not Available Not Available Not Available lamotrigi ne ER 25 mg tablet,ex tended release 24 hr 12/19 completed Prescrib ed Elsewher e: Yes Loca tion: Sylviakilotuan peñaloza [facility] odify By: parker Peñaloza ncounter DateTime : 01/01/20 16 11:30:00 AM Not Available Not Available Not Available Melissa Allergy active Not Available Not Available Not Available Multivita mins 28 mg iron-800 mcg tablet 01/12 completed Prescrib ed Elsewher e: Yes [facility]ify By: artur tomunter DateTime : 01/01/20 16 11:30:00 AM Not Available Not Available Not Available Allergy Relief-Si nus Headache 25 mg-5 mg-325 mg tablet 08/12 completed Prescrib ed Elsewher e: Yes [facility] odify By: taylor roberts DateTime : [...] Elsewher e: No Locat ion: [facility] anabela [facility] odify By: taylor roberts DateTime : 11/03/19 14 08:30:00 AM Not Available Not Available Not Available Vitals Date Recorded Systolic And Diastolic Provider Name and Address Organization Details Last Updated DateTime 2023 132/78 mm[Hg] Vidhi Garza, [facility]- [address], [place], [address], [place] [facility] 2023 11:18:12 Date Recorded Body height Body mass index (BMI) Body weight Provider Name and Address Organization Details Last Updated DateTime 2023 170.18 cm 36.8 kg/m2 652287.21 g Opal Ibrahim [facility] 2023 10:49:08 Date Recorded Body height Body mass index (BMI) Body weight Systolic And Diastolic Provider Name and Address Organization Details Last Updated DateTime 10/24/2023 170.18 cm 37.3 kg/m2 833421.98 g 146/85 mm[Hg] Nannette Sindy [facility] 10/24/2023 12:39:10 Date Recorded Body height Body mass index (BMI) Body weight Systolic And Diastolic Provider Name and Address Organization Details Last Updated DateTime 11/21/2023 170.18 cm 37.6 kg/m2 189252.17 g 138/82 mm[Hg] Linda Escobar [facility] 11/21/2023 12:15:16 Date Recorded Systolic And Diastolic Provider Name and Address Organization Details Last Updated DateTime 01/29/2023 132/84 mm[Hg] Vidhi Garza [facility]- [address], [place], [address], [facility] 01/29/2023 18:44:26 Date Recorded Body height Body mass index (BMI) Body weight Provider Name and Address Organization Details Last Updated DateTime 01/29/2023 170.18 cm 36.3 kg/m2 684805.43 g Nikki Bee [facility] 01/29/2023 15:40:29 Social History Question Answer Notes LastModified by Organizat ion Details LastModified Time Tobacco Smoking Status Never Smoker Nikki hua, [facility] 01/29/2023 15:40:47 Do You Have [...] Or The Highest Degree You Have Received? [id number] Information not available 12/19/2020 Are There Any Guns Present In Your Home? Yes Information not available 08/14/2021 Have You Ever Been Counseled For Unhealthy Alcohol Use? No Information not available 01/29/2023 Do You Use Protection During Sex? No Information not available 12/19/2020 Do You Use Your Seat Belt Or Car Seat Routinely? Yes Information not available 12/19/2020 Are You Sexually Active? Yes [email or web address] Information not available 11/21/2023 Do You Have [...] available 12/19/2020 Are you currently employed? Yes [email or web address] Information not available 11/21/2023 Are you able to walk independently without assistance or assistive devices? YESWOREST Information not available 12/19/2020 Are you able to care for yourself independently? 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 No Information not available 01/29/2023 What is your exercise level? Occasional Information not available 12/19/2020 Mental Status Question Answer Note LastModified by Organization D etails LastModified Time Do you feel stressed (tense, restless, nervous, or anxious, or unable to sleep at night)? [id number] Information not available 08/14/2021 Family History Relationship Description Onset Age of this Age Resolved Age Notes LastModified by Organization Details LastModified Time Maternal Grandmother Carcinoma in situ of breast 60 [email or web address] Not available 09/08 12:20:54 Medical History Condition [...] ICD10 Code Diagnosis IMO Codes Diagnosis Note [id number] Clyde Lopez MD [facility] [address] [address] 12/21/2019 15:11:35 12/21/2019 16:17:05 Contraception care management 070915280 Z30.9 Abnormal u terine bleeding 7639770311 9100 N93.9 this patient is a 39-year-ol [...] this week. Diverticul osis of sigmoid colon 210385460 K57.30 This patient is a 39-year-ol d female with a recent episode of diverticul itis.This we agreed to obtain GI consult. [id number] Vidhi Garza , [facility] [address],[facility] [place] [address] 12/22/2019 10:16:55 12/31/2019 15:52:46 test negative 987058008 Z32.02 Insertion of intrauterine contraceptive device 09463575 Z30.430 She states the symptoms are unchanged. [...] She verbalized understand ing. RTO x 6wks [id number] Vidhi Garza [facility] [address],[facility] [place] [address] 01/26/2020 11:53:20 01/26/2020 12:19:35 Intrauterine device check 504640889 Z30.431 Patient is here today for 4wk [...] counseling and review of plan of care. [id number] Vidhi Garza [facility] [address] [address] 12/19/2020 14:43:42 12/19/2020 17:38:54 Gynecologic examination 71445814 Z01.419 Suggested Calcium with Vitamin D 1200-1500m g daily. Patient advised to get an annual flu shot in the fall and she could obtain at [facility] or [facility] clinic. Also to obtain TDap [...] concerns Happy with IUD. Screening mammography 24 737799 Z12.31 [id number] Vidhi Garza [facility] [address] [address] 08/14/2021 13:17:29 08/15/2021 09:14:30 Abnormal uterine bleeding 2736103987 9100 N93.9 Today we agreed to update [...] this patient s visit, including available hand liquid flavor compounder upon arrive, temperatur e check and being asked a series of screening questions. All staff wore face coverings during this encounter, as well as provided additional cleaning and sanitizing of all surfaces, including countertop s, pens, chairs, door handles, light switches, etc, prior to and following the patient s visit. [id number] Clyde Lopez MD [facility] [address] [address] 08/31/2021 12:12:31 08/31/2021 12:57:05 Abnormal uterine bleeding 5280707154 9100 N93.9 this patient is a 39-year-ol [...] follow-up for Mirena insertion later this week. [id number] [facility] [address] [address] 09/08/2021 11:54:55 09/10/2021 10:29:48 Vaginitis 60694556 N76.0 Treated for BV with extended BV/Yeast [...] this patient s visit, including available hand liquid flavor compounder upon arrive, temperatur e check and being asked a series of screening questions. All staff wore face coverings during this encounter, as well as provided additional cleaning and sanitizing of all surfaces, including countertop s, pens, chairs, door handles, light switches, etc, prior to and following the patient s visit. Abnormal u terine bleeding 2621735776 9100 N93.9 Today we agreed to update [...] this patient s visit, including available hand liquid flavor compounder upon arrive, temperatur e check and being asked a series of screening questions. All staff wore face coverings during this encounter, as well as provided additional cleaning and sanitizing of all surfaces, including countertop s, pens, chairs, door handles, light switches, etc, prior to and following the patient s visit. [id number] Vidhi Garza , [facility] [address] [address] 01/15/2022 15:24:35 01/15/2022 16:50:21 Gynecologic examination 69389436 Z01.419 Z11.51 Suggested Calcium with Vitamin D 1200-1500m g daily. Patient advised to get an annual flu shot in the fall and she could obtain at [facility] or [facility] clinic. Also to obtain TDap [...] (Has Celiac's)D exa Screen naRoutine Labs UTD PCPMadina Burrell Mirena IUD prevents for up to 7 years, and also helps with heavy periods for up to 5 years in women who choose an IUD for control. Vaginitis 76901692 N76.0 [id number] Vidhi Garza [facility] [address],[place] [address] 08/12/2022 11:23:09 08/12/2022 12:10:15 Abnormal uterine bleeding 4646392858 9100 N93.9 Today we will schedule to [...] counseling and review of plan of care. [id number] Clyde Lopez MD [facility] [address],[place] [address] 08/14/2022 10:57:43 08/14/2022 13:17:55 Abnormal uterine bleeding 4707374814 9100 N93.9 [id number] Clyde Lopez MD [facility] [address],[place] [address] 10/08/2022 11:44:00 10/08/2022 12:32:49 Cyst of right ovary 9946785995 [id number] N83.291 [id number] Vidhi Garza [facility] [address],[place] [address] 01/29/2023 15:26:23 01/30/2023 10:34:44 Gynecologic examination [id number] Z01.419 Z11.51 Suggested Calcium with Vitamin D 1200-1500m g daily. Patient advised to get an annual flu shot in the fall and she could obtain at [facility] or [facility] take care clinic. Also to obtain TDap [...] ScreenRout ine LabsMammo ordered Screening mammography 24 [id number] Z12.31 [id number] Vidhi Garza , [facility] [address],[place] [address] 2023 10:40:49 2023 11:35:16 Perimenopausal disorder [id number] N95.9 Today we discussed starting wtih Veozah [...] Lack or lo ss of sexual desire [id number] F52.0 Trial of testim Ulises Monterroso seline total testostero ne sentWill need 3mos f/u med checkWill re-evaluat e and decide if need to add or switch to addyi/Vyle oliver. Pain in pelvis [id number] R10.2 US TVUS scheduledW Ill update and reach out to decide f/u. Patient is to contact office or go to nearest ED/Urgent care if fever >/= 100.1, pain, excessive bleeding, unusual drainage or swelling in area of concern; or experienci ng worsening sx's or new onset of concerning sx's. Understand ing verbalized . All questions answered to patient satisfacti on. [id number] Clyde Lopez MD [facility] [address],[place] [address] 10/13/2023 16:16:21 10/13/2023 17:18:44 Pain in pelvis [id number] R10.2 [id number] Clyde Lopez MD [facility] [address],[place] [address] 10/24/2023 11:52:41 10/24/2023 15:17:12 Cyst of ovary [id number] N83.209 43-year-ol d female with painful ovarian [...] We made a decision to perform surgery. [id number] Clyde Lopez MD [facility] [address],[place] [address] 11/21/2023 11:49:26 11/21/2023 12:45:19 Pain in pelvis [id number] R10.2 Cyst of ovary [id number] N 83.209 43-year-ol d female with painful [...] ID Guarantor Name 08/13/2021 1 [facility] [id number] Herrera Krunal Chow [id number] Devi Chandlerterry 11/19/2023 2 [place] [facility] Devi Chandlerterry [id number] Devi Camposlida 11/25/2023 1 [facility] [id number] Herrera Krunal Chow [id number] Devi Camposlida Notes Date Note Type Note Provider Name and Address Organization Details Recorded Time 3 text/html Annual GYNReported by PatientGenitourinary symptomsFor menstrual cycle, patient reportsnormal menses (amenorrheic on iud). For urinary symptoms, patient reportsno hematuriaandno incontinence. For vulva, patient reportsno genital lesion. For vagina, patient reportsnormal vaginal discharge.Breast symptomsFor breast, patient reportsno breast pain,no breast lump, andno nipple discharge.ContraceptionFo r current contraception, patient reportssatisfied with current contraceptionandintrauter ine device (iud).Endocrine symptomsFor sexual complaints, patient reportsno sexual complaints,no pain during intercourse, andnormal libido. For menopausal symptoms, patient reportsno menopausal symptomsandnormal vaginal lubrication.Psychological symptomsFor psychological symptoms, patient reportsno depression,no anxiety, andno pmdd.Preventative measuresFor preventive measures, patient reportsencourage self breast examination,encourage regular exercise,encourage no tobacco use,encourage regular mammograms starting age 40,followed with yearly pap smears, andneeds to schedule mammogram. Vidhi Garza [facility] [address], [place], [address], [facility] 01/29/2023 18:45:40 4 text/html MenopauseReported by PatientMenopauseFor associated symptoms, patient reportspelvic pain (x 2mos a feeling of cramping but neg aub)but reportsno abdominal pain,no abnormal bleeding,no vaginal discharge,no dysuria,no dispareunia,no fever,no vaginal dryness,no irritability,no depression,no anxiety,no skin changes,no loss of libido, andno changes in urination. For onset/timing, patient reports1-6 months. For quality, patient reportsnight sweats,sleep issues,hot flashes __, andaffects quality of life. For severity, patient reportsmoderate. For duration, patient reportsintermittent. For context, patient reportscurrent contraception: (mirena iud). For alleviating factors, patient reportsnone. For aggravating factors, patient reportspoor sleep,heat, andstress.ROS as noted in the HPI Vidhi Garza [facility] [address], [place], [address], [facility] 2023 11:34:58 4 text/html 43-year-old [...] surgery. Clyde Lopez MD [address], [place], [address], [facility] 10/24/2023 15:15:18 4 text/html 43-year-old [...] infection. Clyde Lopez MD [address], [place], [address], [facility] 11/21/2023 12:43:15 OBGyn Episode Ob Episode Information Episode Created Date Number of Fetuses Patient Bloodtype Patient rh Status Prepregnancy Weight lbs Domestic Partner Domestic Partner Phone Father Name Specialist Icu Status 12/21/19 20 1 CLOSED Fetus Data [...] Domestic Partner Domestic Partner Phone Father Name Specialist Icu Status 12/21/19 20 1 CLOSED Fetus Data [...] Domestic Partner Domestic Partner Phone Father Name Specialist Icu Status 12/21/19 20 1 CLOSED Fetus Data [...] Domestic Partner Domestic Partner Phone Father Name Specialist Icu Status 09/07/19 22 1 CLOSED Fetus Data First Name Last Name Admitted to NICU Weight (g) Sex Living Outcome Pediatric Complications Fetus ID Race Codes Race Delivery Type , Spontane ous [id number] Chaparro Calculation Initial Chaparro Date Initial Exam [...]
--- OUTSIDE RECORDS SUMMARY | 2025-05-19 01:44 | XMS_ITS | Clinical Summary ---
Author Organization [facility] Address [address] [place] [address] Care Team Providers Care Double Bass Player Name Role Phone Diomedes Seals MD Primary Care Provider + [phone] Allergies Active Allergy Reactions Criticality Noted Date [...] dispo -12/[address] scan with FL contrast 12/16 Starting clear liquids but continuing [...] identified at OSH on 12/04 -Transfer to [facility] for higher level of care with prior EGS admission 12/09-12/18 Pathology OSH 11/25 -Benign hypervascular ovarian cyst with adhesions Assessment & Plan (12/12/2023 12:17 PM CDT): -OSH OR 11/25, initially planned for elective surgery; c/b intraabdominal hemorrhage, OSH General Surgery c/s intra-op > Op notes obtained and uploaded in Media -Post op course c/b abscess c/f ECF -Transfer to [facility] for higher level of care [...] 9:47 AM CDT): Relevant surgical history: (all [facility]) 06/05/22: lap sigmoidectomy 04/21/23: open [...] PM CDT): Relevant surgical history: (all [facility]) 06/05/22: lap sigmoidectomy 04/21/23: open [...] IV cefe/flagyl, CT AP with IV and FL contrast to rule out missed colon injury, LEDs and lower extremity arterial doppler 12/11 LE US studies unrevealing. CT A/P with FL contrast pending. No nausea, continue IV antibiotics. [...] check. She would like to follow with [facility] IR and General surgery. IR [...] EGS and IR follow up on 12/31. [facility] Imagin/23 LE Arterial Dopplers - [...] Complete spontaneous w/o complication;Recorded Elsewhere: No Location: [facility] Source: EHR Chronic: N Practice ID: [id number] Billable Time: 04:30:00 PM Pelvic and perineal pain 01/12/2018 Overview (09/30/2024): Pelvic pain;Recorded Elsewhere: No Location: [facility] Source: EHR Chronic: N Practice ID: [id number] Billable Time: 11:00:00 AM Acute vaginitis 01/01/2016 Overview (09/30/2024): Acute vulvovaginitis;Recorded Elsewhere: No Location: [facility] Source: EHR Chronic: N Practice ID: [id number] Billable Time: 11:30:00 AM Female genital symptoms 11/02/2013 Overview (09/30/2024): Unspecified symptom associated with female genital organs;Recorded Elsewhere: No Location: [facility] Source: EHR Chronic: N Practice ID: [id number] Billable Time: 08:30:00 AM Headache 11/02/2013 Overview (09/30/2024): Headache;Recorded Elsewhere: No Location: [facility] Source: EHR Chronic: N Practice ID: [id number] Billable Time: 08:30:00 AM Hematochezia 11/02/2013 Overview (09/30/2024): Blood in stool;Recorded Elsewhere: No Location: [facility] Source: EHR Chronic: N Practice ID: [id number] Billable Time: 08:30:00 AM Sleep apnea 06/17/2012 Nontoxic single thyroid nodule 06/17/2012 Hirsutism 06/17/2012 Abdominal pain 12/17/2011 Overview (09/30/2024): Abdominal pain, other specified site;Recorded Elsewhere: No Location: [facility] Source: EHR Chronic: N Practice ID: [id number] Billable Time: 03:00:00 PM Goiter 09/11/2011 Overview (09/30/2024): Goiter, unspecified;Recorded Elsewhere: No Location: [facility] Source: EHR Chronic: N Practice ID: [id number] Billable Time: 09:15:00 AM Increased frequency of urination 09/11/2011 Overview (09/30/2024): Urinary frequency;Recorded Elsewhere: No Location: [facility] Source: EHR Chronic: N Practice ID: [...] updated 12/12/23) Primary Care Provider: Rossana Ireland, TOOL DRAWING CHECKER Placement or Home Health Company: N/A Current [...] Encounters Date Type Department Care Team Description 05/12/2025 12:22 PM CDT - 05/12/2025 11:59 PM CDT Hospital Encounter [facility] [address] [place] [id number] Discharge Disposition: Discharge to home or self care 05/03/2025 Telephone [facility] [address] [place] [address] [facility] [address] [place] [address] [place] [address] Joyce Zamora CMA Follow-up 04/27/2025 3:00 PM CDT [facility] [address] [place] [address] [facility] Medicine [address] [place] [address] [place] [address] Attila Foster MD Infected hernioplasty mesh, subsequent encounter (Primary Dx); Ventral hernia with obstruction but no gangrene; Obesity with body mass index 30 or greater; Pain of upper abdomen 03/11/2025 [facility] [address] [place] [address] Advanced Medicine [address] [place] [address] [place] [address] Joyce Zamora CMA from Last 3 Months Immunizations Immunization Administration [...] materials from doctor or pharmacy Never 12/21/2023 [facility] Utilities Answer Date Recorded In the past 12 months has th e [employer] gas, oil, or water [employer] threatened to shut off services in your [...] often do you attend chur ch or nondenominational services? Never 12/26/2023 Do you belong to any clubs o r organizations such as confucianist groups, unions, fraternal or athletic groups, or [...] Date Recorded PHQ-2 Total Score 1 12/26/2023 [facility] - Occupational Stress [...] any time in the past 12 m [facility], were you homeless or living in a fdc (including now)? No 12/26/2023 Personal Safety Answer Date Recorded Have you ever been in or are you currently in a harmful physical or emotional relationship or is someone making you feel afraid or unsafe? 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 There will be no report generated by a [facility] Radiologist. Narrative [facility] - 05/12/2025 12:22 PM CDT EXAMINATION: Images For Reference Purposes Only us Attila Jose Foster MD IMG CT PROCEDURES Fi nal Result [facility] from Last 3 Months Insurance [facility] [employer] H[facility]/PPO Address: [facility] [address] [place] [address] [employer] [facility] CHOICE PLUS [facility]/PPO Address: [address] [address] [place] [address] [facility]/[employer]O Address: [facility] [address] [place] [address] [facility]/[employer] Address: [address] [place] [phone] [facility]/PPO Address: [address] [place] [phone] Advance Directives For more information, please contact: [phone] * Full Code (Latest Code Status on [...] 9:24 PM 12/19/2023 10:20 PM Care Teams Double Bass Player Relationship Specialty Start Date End Date Diomedes Seals MD [address] [place], [place] [id number] PCP - General Family Medicine 12/28/23
--- NOTE | 2025-05-19 01:52 | ED.BACK ---
HPI - Back Pain/Injury General Chief Complaint: Back Pain/Injury <Lucy Wood APRN - Last Filed: 05/19/25 03:27> Stated Complaint: back pain <Lucy Wood APRN - Last Filed: 05/19/25 03:27> Time Seen by Provider: 05/19/25 01:24 <Lucy Wood APRN - Last Filed: 05/19/25 03:27> History of Present Illness HPI Narrative: Patient is a 44-year-old female who presents to the ER with back pain. She denies any injury to the site. Patient reports on Friday morning her back was a little achy. She reports on Friday the pain got worse. Patient endorses increased pain with movement and reports the pain is directly on her lower spine. She endorses mild numbness down her legs but denies saddle anesthesia or loss of continence. Patient nurses a history of fatty liver disease and a large abdominal hernia. <Lucy Wood APRN - Last Filed: 05/19/25 03:27> Related Data Home Medications: Home Medications ?Medication ?Instructions ?Recorded ?Confirmed ?Last Taken ?Type cetirizine 10 mg capsule (Zyrtec) 10 mg PO HS PRN Allergy Symptoms 07/10/22 04/13/25 Unknown History multivitamin 1 tablet PO DAILY 04/15/23 04/13/25 Unknown History <Lucy Wood APRN - Last Filed: 05/19/25 03:27> Allergies/Adverse Reactions: Allergies Allergy/AdvReac Type Severity Reaction Status Date / Time wheat Allergy Severe Abdominal Verified 05/18/25 23:12 Pain iodine Allergy Intermediate sneezing, Verified 05/18/25 23:12 COUGH iohexol (From contrast - CT, Allergy Intermediate SNEEZING, Verified 05/18/25 23:12 X-RAY) COUGH Penicillins Allergy Intermediate Rash Verified 05/18/25 23:12 shrimp Allergy Intermediate Rash Verified 05/18/25 23:12 gluten Allergy Mild Abdominal Verified 05/18/25 23:12 Pain irbesartan AdvReac Intermediate hair loss Verified 05/18/25 23:12 <Lucy Wood APRN - Last Filed: 05/19/25 03:27> Review of Systems Review of Systems: All systems reviewed & are unremarkable except as noted in HPI and below <Lucy Wood APRN - Last Filed: 05/19/25 03:27> [facility] Past Medical History Medical History: Medical History Elevated glucose Abnormal mammogram Low T4 Intra-abdominal abscess Postoperative ileus History of diverticulitis Rectal Hemorrhage LUQ pain Degenerative joint disease of cervical and lumbar spine Panic attack Cerebral atrophy Hx pulmonary embolism Pulmonary embolism Incisional hernia Hyperlipidemia Anxiety Blood transfusion abn reaction or complication, no procedure mishap Abdominal pain BMI greater than 30 Numbness of face Left facial numbness Rash D-dimer, elevated Acute bacterial sinusitis Abnormal endoscopy of upper gastrointestinal tract Shrimp allergy Depression Chronic back pain Arthritis Ovarian cyst Uterine fibroid Hemorrhoids Gallbladder disease Diverticulosis Diverticulitis Sleep apnea Hypertension Chronic headaches Seizures absent seizure <Lucy Wood APRN - Last Filed: 05/19/25 03:27> Surgical History Surgical History: Surgical History H/O oophorectomy S/P laparoscopic-assisted sigmoidectomy H/O abdominal surgery History of hernia repair incisional hernia with defect measuring approximately 9 cm, lateralization of the rectus muscles on 04/21/23 PDC History of incisional hernia repair Hx of colectomy AMBER Sigmoid colectomy on 06/05/22 H/O endoscopy Previous section H/O dilation and curettage Hx of cholecystectomy History of appendectomy H/O vein stripping <Lucy Wood APRN - Last Filed: 05/19/25 03:27> Family History Family History: Family History Father Heart disease Hypertension Diabetes mellitus Mother Diabetes mellitus Heart disease Sibling No problems noted. Grandparent Breast cancer Other Cancer Cerebrovascular accident <Lucy Wood APRN - Last Filed: 05/19/25 03:27> Social History Social History: Social History Smoking packs per day: 1 Smoking cigarettes per day: 20.0 Years smoked: 3 Smoking pack-years: 3.00 Smoking status: Current some day smoker Tobacco type: e-cigarettes/vaping Second hand tobacco smoke exposure: Yes (SPOUSE) Additional smoking assessment comments: started vaping 2020 Alcohol intake: current Drinks per week: 1 Alcohol use details: OCAASIONALLY Substance use: never Substance use type: does not use Do You Feel Safe in your Home?: Yes Lack of Transportation: No Lack of Food: Never True Current Housing: I Have Housing Concerned About Future Housing: No Difficulty Paying Gas/Electric Bills: No Difficulty Paying for Meds: No Currently Unemployed: No Education: High School Diploma/GED Difficulty w/ Childcare or Family Care: No Living arrangements: with family Additional living arrangements comments: HUSB AND CHILDREN Occupation/Education: occupation 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 HEAD: Normocephalic, atraumatic. NECK: Supple. No adenopathy, no masses. RESPIRATORY: Airway patent, respirations nonlabored. Clear to auscultation bilaterally, no rales, rhonchi, wheezing. CARDIOVASCULAR: Regular rate and rhythm without murmurs, rubs, or gallops. Peripheral pulses 2+ and equal bilaterally. ABDOMINAL: Soft, nontender, nondistended, no hepatosplenomegaly. Normoactive BS. MUSCULOSKELETAL: Moves all extremities. Strength/ROM intact without gross deformities. Tenderness with palpation to lumbar spine SKIN: Warm, dry, normal color. No rashes. NEURO: A&O X3. Speech clear. Cranial nerves II-XII intact. No ataxic movements. PSYCHIATRIC: Appropriate mood and affect. Normal interaction. <Lucy Wood, ABDOULAYE - Last Filed: 05/19/25 03:27> Course Course Emergency Course: Patient care signed over by previous provider pending CT scan. Patient was feeling improved on re-evaluation and ambulatory without difficulty. CT scan shows no acute findings other than a 5 mm disc bulge without any significant canal stenosis. Patient had improvement on current regimen of medications and safe for discharge home with regular PCP follow-up. <Alex Conner MD - Last Filed: 05/19/25 04:26> Vital Signs Vital signs: Vital Signs Temperature 36.8 C 05/18/25 23:30 Pulse Rate 100 05/18/25 23:30 Respiratory Rate 18 05/18/25 23:30 Blood Pressure 136/85 05/18/25 23:30 Pulse Oximetry 99 05/18/25 23:30 Oxygen Delivery Room Air 05/18/25 23:30 Temperature 36.8 C 05/18/25 23:30 Pulse Rate 89 05/19/25 04:22 Respiratory Rate 18 05/19/25 04:22 Blood Pressure 117/66 05/19/25 04:22 Pulse Oximetry 95 05/19/25 04:22 Oxygen Delivery Room Air 05/19/25 01:34 <Lucy Wood APRN - Last Filed: 05/19/25 03:27> Vital Signs Temperature 36.8 C 05/18/25 23:30 Pulse Rate 100 05/18/25 23:30 Respiratory Rate 18 05/18/25 23:30 Blood Pressure 136/85 05/18/25 23:30 Pulse Oximetry 99 05/18/25 23:30 Oxygen Delivery Room Air 05/18/25 23:30 Temperature 36.8 C 05/18/25 23:30 Pulse Rate 89 05/19/25 04:22 Respiratory Rate 18 05/19/25 04:22 Blood Pressure 117/66 05/19/25 04:22 Pulse Oximetry 95 05/19/25 04:22 Oxygen Delivery Room Air 05/19/25 01:34 <Alex Conner MD - Last Filed: 05/19/25 04:26> MDM - Back Pain/Injury MDM Narrative Medical decision making narrative: Patient is a 44-year-old female who presents to the ER with back pain. She denies any injury to the site. Patient reports on Friday morning her back was a little achy. She reports on Friday the pain got worse. Patient endorses increased pain with movement and reports the pain is directly on her lower spine. She endorses mild numbness down her legs but denies saddle anesthesia or loss of continence. Patient nurses a history of fatty liver disease and a large abdominal hernia. Labs Ordered: [facility] Imaging Ordered: CT lumbar spine Medications Ordered: prednisone p.o., Toradol 60 mg IM, cyclobenzaprine p.o. 0330- Care signed out to Dr. Connre pending CT scan results. <Lucy Wood, HOSPICE PATIENT CARE SECRETARY - Last Filed: 05/19/25 03:27> Differential Diagnosis Differential diagnosis: Likely lumbar radiculopathy, sciatica and discitis <Lucy Wood, HOSPICE PATIENT CARE SECRETARY - Last Filed: 05/19/25 03:27> Lab Data Attestation: I reviewed the patient's lab results. <Lucy Wood, HOSPICE PATIENT CARE SECRETARY - Last Filed: 05/19/25 03:27> Labs: Lab Results 05/19/25 05/19/25 Range/Units 02:12 02:15 Urine Color Yellow (Yellow) Urine Appearance Clear (Clear) Urine pH 6.0 (5.0-9.0) Ur Specific [place] 1.031 (1.001-1.035) Urine Protein Trace (Negative) mg/dL Urine Glucose (UA) Negative (Negative) mg/dL Urine Ketones Trace H (Negative) mg/dL Ur Blood (Man) Negative (Negative) Urine Nitrate Negative (Negative) Urine Bilirubin Negative (Negative) Urine Urobilinogen 1.0 (<2.0) mg/dL Leukocyte Esterase Rfl Negative (Negative) CONTRERAS/UL Urine RBC 0-2 (0-2) /hpf Urine WBC 0-5 (0-3) /hpf Ur Squamous Epith Cells Occasional (Few) /hpf Urine Bacteria None seen /hpf Urine Casts 0-2 POC Urine HCG, Qual Negative (Negative) <Lucy Wood, HOSPICE PATIENT CARE SECRETARY - Last Filed: 05/19/25 03:27> Lab Results 05/19/25 05/19/25 Range/Units 02:12 02:15 Urine Color Yellow (Yellow) Urine Appearance Clear (Clear) Urine pH 6.0 (5.0-9.0) Ur Specific [place] 1.031 (1.001-1.035) Urine Protein Trace (Negative) mg/dL Urine Glucose (UA) Negative (Negative) mg/dL Urine Ketones Trace H (Negative) mg/dL Ur Blood (Man) Negative (Negative) Urine Nitrate Negative (Negative) Urine Bilirubin Negative (Negative) Urine Urobilinogen 1.0 (<2.0) mg/dL Leukocyte Esterase Rfl Negative (Negative) CONTRERAS/UL Urine RBC 0-2 (0-2) /hpf Urine WBC 0-5 (0-3) /hpf Ur Squamous Epith Cells Occasional (Few) /hpf Urine Bacteria None seen /hpf Urine Casts 0-2 POC Urine HCG, Qual Negative (Negative) <Alex Conner MD - Last Filed: 05/19/25 04:26> Discharge Plan Discharge Clinical Impression: Lumbar radiculopathy <Lucy Wood APRN - Last Filed: 05/19/25 03:27> Patient Disposition: Home <Lucy Wood APRN - Last Filed: 05/19/25 03:27> Condition: Stable <Lucy Wood APRN - Last Filed: 05/19/25 03:27> Instructions: Antibiotic Form, Acute Low Back Pain (ED) <Lucy Wood APRN - Last Filed: 05/19/25 03:27> Additional Instructions: Your CT scan shows no traumatic or acute findings but you do have a 5 mm disc bulge at L4-L5 that is not causing any significant stenosis but likely the source of some your your pain/symptoms. Follow-up with regular primary care provider regarding this. Return with any emergencies. Return to the ER if you have increased pain in your back, you develop lower extremity weakness/numbness/paralysis, you have numbness or tingling in your private parts, or you are unable to control your ability to urinate/stool. <Lucy Wood APRN - Last Filed: 05/19/25 03:27> Patient Language: Surinamese <Lucy Wood APRN - Last Filed: 05/19/25 03:27> Prescriptions: New methocarbamol 750 mg tablet 750 mg PO TID PRN (Reason: pain) Qty: 20 0RF prednisone 50 mg tablet 50 mg PO DAILY 5 Days Qty: 5 0RF lidocaine 5 % adhesive patch,medicated 1 patch topical DAILY Qty: 15 0RF Rx Instructions: leave on most painful area for up to 12 hrs No Action pantoprazole 40 mg tablet,delayed release (DR/EC) 40 mg PO BID 30 Days Qty: 60 3RF duloxetine 60 mg capsule,delayed release(DR/EC) 60 mg PO DAILY Qty: 90 2RF Zyrtec 10 mg capsule 10 mg PO HS PRN (Reason: Allergy Symptoms) multivitamin Tablet 1 tablet PO DAILY acetaminophen 500 mg tablet 1,000 mg PO TID PRN (Reason: irene) 7 Days Qty: 42 0RF ibuprofen 800 mg tablet 800 mg PO TID PRN (Reason: pain) 7 Days Qty: 21 0RF amlodipine [Norvasc] 5 mg tablet 5 mg PO DAILY Qty: 90 2RF <Lucy Wood APRN - Last Filed: 05/19/25 03:27> Follow-up/Referrals: Diomedes Seals MD [Primary Care Provider, Family Practice] <Lucy Wood APRN - Last Filed: 05/19/25 03:27> Time of Disposition: 03:52 <Lucy Wood APRN - Last Filed: 05/19/25 03:27> 03:52 <Alex Conner MD - Last Filed: 05/19/25 04:26>
[2025-05-19 02:18] LABS: BEDSIDEPREGUCG Negative (Negative)
[2025-05-19] MEDS: KETOROLAC (*BKC) 60 MG/2 ML VIAL IM (02:22)
[2025-05-19] MEDS: CYCLOBENZAPRINE HCL 10 MG TABLET PO (02:22)
[2025-05-19 02:23] LABS: Add Urine Microscopic? YES; Appearance Urine Clear (Clear); Glucose Urine UA Negative (Negative); Leukocyte Esterase Ur Negative LEU/UL (Negative); Nitrate Urine Negative (Negative); Non Pathogenic Casts 0-2; Specific Grav Ur 1.031 (1.001-1.035)
== END 2025-05-19 04:15 | disposition home or self-care (01) ==
PROVIDERS: Emergency Provider Registered Nurse; PCP Family Medicine
DX: M47.26 Other spondylosis with radiculopathy, lumbar region (principal); I10 Essential (primary) hypertension; E78.5 Hyperlipidemia, unspecified; M47.812 Spondylosis without myelopathy or radiculopathy, cervical region; M19.90 Unspecified osteoarthritis, unspecified site; K76.0 Fatty (change of) liver, not elsewhere classified; G47.30 Sleep apnea, unspecified; F41.9 Anxiety disorder, unspecified; F32.A Depression, unspecified; Z86.711 Personal history of pulmonary embolism; Z90.49 Acquired absence of other specified parts of digestive tract; F17.290 Nicotine dependence, other tobacco product, uncomplicated
CPT/HCPCS: 72131; 81001; 81025; 96372; 99284; A9270; J1885; J7512

== ENCOUNTER 2025-06-24 17:26 | Emergency (ER) | payer OTHER, SELFPAY ==
[2025-06-24 17:38] VITALS: BP 145/88; PULSE 101; RESP 18; TEMP 37.3; O2SAT 100
--- NOTE | 2025-06-24 17:49 | ED_ITS ---
HPI - URI/Sore Throat General Chief Complaint: Upper Respiratory Infection Stated Complaint: Throat Issues/Ears Irritation Time Seen by Provider: 06/24/25 17:55 Source: patient, RN notes reviewed and old records reviewed Mode of arrival: ambulatory Limitations: no limitations History of Present Illness HPI Narrative: 44-year-old female presents to the [facility] with complaints of sore throat, feeling like some things in her throat her in here pressure since Friday, 2 days. Patient started a new medication, so she has not taken any [id number] products Onset (ago): day(s) (2) Treatments prior to arrival: none Related Data Home Medications ?Medication ?Instructions ?Recorded ?Confirmed ?Last Taken ?Type cetirizine 10 mg capsule (Zyrtec) 10 mg PO HS PRN Lux rgy Symptoms 07/10/22 05/23/25 Unknown History resmetirom 100 mg tablet mg PO 06/24/25 Unknown Hist ory (Rezdiffra) sulfamethoxazole 800 tablet 06/24/25 Unknown His tory mg-trimethoprim 160 mg tablet Allergies Allergy/AdvReac Type Severity Reaction Status Date / Time wheat Allergy Severe Abdominal Verified 06/24/25 18:05 Pain iodine Allergy Intermediate sneezing, Verified 06/24/25 18:05 COUGH iohexol (From contrast - CT, Allergy Intermediate SNEEZING, Verified 06/24/25 18:05 X-RAY) COUGH Penicillins Allergy Intermediate Rash Verified 06/24/25 18:05 shrimp Allergy Intermediate Rash Verified 06/24/25 18:05 gluten Allergy Mild Abdominal Verified 06/24/25 18:05 Pain irbesartan AdvReac Intermediate hair loss Verified 06/24/25 18:05 Review of Systems Review of Systems: All systems reviewed & are unremarkable except as noted in HPI and below Constitutional: Constitutional: Reports no additional constitutional complaints ENT: Reports as per HPI Cardiovascular: Cardiovascular: Reports no additional cardiovascular c omplaints, Denies chest pain and Denies dyspnea Respiratory: Respiratory: Reports no additional respiratory complaints, Denies chest congestion, Denies cough and Denies dyspnea Musculoskeletal: Musculoskeletal: Reports no additional musculoskeletal complaints Integumentary/Breasts: Skin/Breast: Reports system reviewed and no additional complaints, except as docu [facility] Past Medical History Medical History (Updated 06/24/25 @ 18:44 by Cayla Padilla, SECOND RIGGER) Elevated glucose Abnormal mammogram Low T4 Intra-abdominal abscess Postoperative ileus History of diverticulitis Rectal Hemorrhage LUQ pain Degenerative joint disease of cervical and lumbar spine Panic attack Cerebral atrophy Hx pulmonary embolism Pulmonary embolism Incisional hernia Hyperlipidemia Anxiety Blood transfusion abn reaction or complication, no procedure mishap Abdominal pain BMI greater than 30 Numbness of face Left facial numbness Rash D-dimer, elevated Acute bacterial sinusitis Abnormal endoscopy of upper gastrointestinal tract Shrimp allergy Depression Chronic back pain Arthritis Ovarian cyst Uterine fibroid Hemorrhoids Gallbladder disease Diverticulosis Diverticulitis Sleep apnea Hypertension Chronic headaches Seizures absent seizure Surgical History Surgical History (Updated 05/25/25 @ 09:51 by Med Edwards, SECOND RIGGER) H/O oophorectomy S/P laparoscopic-assisted sigmoidectomy H/O abdominal surgery History of hernia repair incisional hernia with defect measuring approximately 9 cm, lateralization of the rectus muscles on 04/21/23 PDC History of incisional hernia repair Hx of colectomy AMBER Sigmoid colectomy on 06/05/22 H/O endoscopy Previous section H/O dilation and curettage Hx of cholecystectomy History of appendectomy H/O vein stripping Family History Family History Father Heart disease Hypertension Diabetes mellitus Mother Diabetes mellitus Heart disease Sibling No problems noted. Grandparent Breast cancer Other Cancer Cerebrovascular accident Social History Social History (Updated 05/23/25 @ 09:23 by Kisha Warner MA) Smoking packs per day: 1 Smoking cigarettes per day: 20.0 Years smoked: 3 Smoking pack-years: 3.00 Smoking status: Current some day smoker Tobacco type: e-cigarettes/vaping Second hand tobacco smoke exposure: Yes (SPOUSE) Additional smoking assessment comments: started vaping 2020 Alcohol intake: current Drinks per week: 1 Alcohol use details: OCAASIONALLY Substance use: never Substance use type: does not use Lack of Transportation: No Lack of Food: Never True Current Housing: I Have Housing Concerned About Future Housing: No Difficulty Paying Gas/Electric Bills: No Difficulty Paying for Meds: No Currently Unemployed: No Education: High School Diploma/GED Difficulty w/ Childcare or Family Care: No Living arrangements: with family Additional living arrangements comments: HUSB AND CHILDREN Occupation/Education: occupation 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 There is no relevant family history pertinent to the patient complaint. Exam Const: General: cooperative, healthy appearing, comfortable, no acute distress, well developed, alert and well nourished Nutritional Appearance: well nourished and obese Orientation/consciousness: patient oriented x3 Limitations: no limitations HENMT: Head: normal to inspection Ears: hearing grossly normal bilaterally, external ears normal, TM's normal bilaterally, EAC's normal, mastoids normal and no periauricular adenopathy Mouth: Yes Normal oral and palatal mucosa present, Yes lip normal, Yes tongue normal and Yes moist mucous membranes Throat: posterior oropharynx normal, uvula midline, postnasal drainage and no uvular edema Eyes: General: appearance normal, both eyes and all related structures Alignment and Position: alignment normal Neck: Neck: normal visual inspection, full ROM, no lymphadenopathy and no meningeal signs Chest: Chest palpation & inspection: normal inspection of the chest Resp: Effort & Inspection: normal respiratory effort and able to speak in complete sentences Auscultation: clear to auscultation bilaterally, no crackles, no rales, no rhonchi and no wheezes Cardio: Rate: regular rate Skin: General skin exam: normal color and no rashes or lesions noted Neuro: General: patient oriented x3, gait normal, moves all extremities and no meningeal signs Cognition (Neuro): normal cognition Speech: normal speech Gait exam (Neuro): Normal gait present Extrem: General: normal to inspection, full ROM, capillary refill normal and normal gait Psych: Appearance: grossly normal and well kempt Mental Status: mental status grossly normal Speech and movement: Normal speech and movement present and Clear speech present Affect: normal affect Attitude: cooperative Course Course Level of Care: Express Care Visit Vital Signs Vital signs: Vital Signs Temperature 99.1 F 06/24/25 17:38 Pulse Rate 101 H 06/24/25 17:38 Respiratory Rate 18 06/24/25 17:38 Blood Pressure 145/88 H 06/24/25 17:38 Pulse Oximetry 100 06/24/25 17:38 Oxygen Delivery Room Air 06/24/25 17:38 Temperature 99.1 F 06/24/25 17:38 Pulse Rate 101 H 06/24/25 17:38 Respiratory Rate 18 06/24/25 17:38 Blood Pressure 145/88 H 06/24/25 17:38 Pulse Oximetry 100 06/24/25 17:38 Oxygen Delivery Room Air 06/24/25 17:38 reviewed MDM MDM Narrative Medical decision making narrative: patient sitting in exam room. Patient is nontoxic, vitals are stable. Patient presents with 2 day history of pharyngitis, ear pressure. Patient strep test is negative, will culture patient is appropriate for outpatient treatment with close follow-up for viral pharyngitis Discharge instructions reviewed with patient, as well as provided in writing per nursing staff. The instructions also include specific and strict return/GO TO THE ER as well as f/u information. All questions have been answered, and the patient deny any further questions with discharge and discharge plan. Some parts of this dictation were generated by voice recognition software and may contain typographical and/or grammatical inaccuracies. Differential Diagnosis Differential Diagnosis: Differential diagnostic considerations for upper respiratory infection include upper respiratory infection, croup, otitis media, sinusitis, viral infection, bronchitis, influenza, pharyngitis, strep, uvulitis.? Medical Records I have reviewed the following patient records and this information was taken into consideration when formulating the assessment and plan.: previous ER visits and previous clinic visits Lab Data Labs: Lab Results 06/24/25 Range/Units 17:51 POC Grp A Strep Screen Negative (Negative) Discharge Plan Discharge Clinical Impression: Pharyngitis Qualifiers: Pharyngitis/tonsillitis etiology: unspecified etiology Qualified Code(s): J02.9 - Acute pharyngitis, unspecified Patient Disposition: Home Condition: Stable Instructions: Antibiotic Form, Pharyngitis (ED) Additional Instructions: please check with pharmacy about taking Motrin or Tylenol with Rezdiffra Your rapid strep swab was negative today at [facility]. A throat culture will be sent to the laboratory for further testing. If the test is positive, you will receive a phone call within 48 hours and an appropriate antibiotic will be initiated at that time. Your symptoms are likely due to a viral illness, which is not treated with antibiotics. Typically viral infections last 7-10 days, can linger for couple of weeks. It is very important to treat your symptoms. Drink plenty of water, Gatorade, Pedialyte, ice pops or Jell-O. -Alternate Tylenol and Motrin per package directions for fever or pain. You can alternate every 4 hours -Antihistamine medication such as Zyrtec/Claritin during the day can help improve symptoms. -doing daily nasal irrigations can help relieve pressure your sinuses. Things like a Neti pot -Use Flonase twice a day for 5 days then daily to help reduce the inflammation and dry up your sinuses. -You can also use Mucinex. Be sure to drink plenty of water with this medication at least 8 ounces with every dose and it is important to drink 8 to 10 glasses of water per day. Water is a natural decongestant -Eat and drink things that are easy to swallow, like tea or soup, or popsicles. -Oral rinses such as: Salt water gargles and/or may use topical anesthetic (eg. Chloraseptic spray) or lozenges to relieve dryness or throat pain). -Frequent hand washing or hand laminated plastics assembler and gluer is one of the best ways to prevent spread of infection. -Using a vaporizer or humidifier at night will also help thin secretions and help with coughing up phlegm. -Follow up with primary care provider in 7-10 days if condition is not improving - For new or worsening symptoms go directly to the nearest ER Patient Language: Korean Prescriptions: No Action sulfamethoxazole-trimethoprim 800-160 mg tablet Rezdiffra 100 mg tablet PO pantoprazole 40 mg tablet,delayed release (DR/EC) 40 mg PO BID 30 Days Qty: 60 3RF duloxetine 60 mg capsule,delayed release(DR/EC) 60 mg PO DAILY Qty: 90 2RF Zyrtec 10 mg capsule 10 mg PO HS PRN (Reason: Allergy Symptoms) amlodipine [Norvasc] 5 mg tablet 5 mg PO DAILY Qty: 90 2RF Follow-up/Referrals: Diomedes Seals MD [Primary Care Provider, Family Practice] Stand Alone Forms: Work/School Release IP Time of Disposition: 18:04
[2025-06-24 18:15] LABS: EDSTREPNEGPOS1 Negative (Negative)
== END 2025-06-24 18:12 | disposition home or self-care (01) ==
PROVIDERS: Emergency Provider Nurse Practitioner; PCP Family Medicine
DX: J02.9 Acute pharyngitis, unspecified (principal); F17.290 Nicotine dependence, other tobacco product, uncomplicated; I10 Essential (primary) hypertension; E78.5 Hyperlipidemia, unspecified; Z86.711 Personal history of pulmonary embolism; M19.90 Unspecified osteoarthritis, unspecified site; G31.9 Degenerative disease of nervous system, unspecified
CPT/HCPCS: 87081; 87880; 99213; G0463

== ENCOUNTER 2025-07-07 09:23 | Outpatient (CLI) | payer OTHER, SELFPAY ==
--- NOTE | ~2025-07-07 | CT_ITS ---
EXAM/PROCEDURE: CT abdomen pelvis wo con HISTORY: VENTRAL HERNIA/ HX OF FLUID COLLECTION COMPARISON: May 09, 2025 TECHNIQUE: Noncontrast CT of abdomen and pelvis FINDINGS: Diastases of the abdominous rectus in the midabdomen extends to or pronounced separation and ventral herniation at the level of the umbilicus and below with anterior peritoneal defect measuring approximately 6.5 cm, similar in appearance to the April 2025 exam. 1-2 loops of small bowel are again noted, not clearly incarcerated and not strangulated. See image 120 series 3. Large bowel protrudes anteriorly and prominent diastases of the abdominis rectus above the level of the hernia. The bowel gas pattern is nonobstructive. 2 soft tissue fullness along the inferior margin of the hernia is noted as seen on image 135 series 3, also unchanged in appearance from the previous exam. Small right. Midline supraumbilical ventral hernia is also present image 92 series 3 with no herniated bowel. Partial colectomy and/or appendectomy surgical changes. No hydroureteronephrosis. Gallbladder removed. Aorta normal in size. No grossly inflamed appendix. Anteflex uterus with IUD stable in appearance No bulky mesenteric or retroperitoneal lymphadenopathy or masses. Mild degenerative changes of the bones which otherwise appear intact Lung bases clear. Heart size normal. Stomach unremarkable. Pancreas spleen and adrenal glands also appear stable. Urinary bladder appears normal for technique. IMPRESSION: Directed noncontrast exam with no gross interval change compared to the May 092024 exam with moderate size lower ventral hernia and 1-2 loops of herniated small bowel. Cephalad to the hernia, large bowel protrude somewhat in prominent abdominis rectus diastasis. No acute complication. Reviewed, dictated and finalized at location A. [employer] IMPRESSION: Directed noncontrast exam with no gross interval change compared to the May 092024 exam with moderate size lower ventral hernia and 1-2 loops of herni ated small bowel. Cephalad to the hernia, large bowel protrude somewhat in prom inent abdominis rectus diastasis. No acute complication.
--- OUTSIDE RECORDS SUMMARY | 2025-07-07 10:11 | XMS_ITS | Clinical Summary ---
Author Organization [facility] Center Address [address] [place] [address] Care Team Providers Care Supervisor Hanging And Trimming Name Role Phone Diomedes Seals MD Primary Care Provider + [phone] Allergies Active Allergy Reactions Criticality Noted Date [...] times a day 60 tablet 1 5 08/01/19 26 Active Active Problems Problem Noted Date Diagnosed [...] dispo -12/[address] scan with ND contrast 12/16 Starting clear liquids but continuing [...] identified at OSH on 12/04 -Transfer to [facility] for higher level of care with prior EGS admission 12/09-12/18 Pathology OSH 11/25 -Benign hypervascular ovarian cyst with adhesions Assessment & Plan (12/12/2023 12:17 PM CDT): -OSH OR 11/25, initially planned for elective surgery; c/b intraabdominal hemorrhage, OSH General Surgery c/s intra-op > Op notes obtained and uploaded in Media -Post op course c/b abscess c/f ECF -Transfer to [facility] for higher level of care - [...] 9:47 AM CDT): Relevant surgical history: (all [facility]) 06/05/22: lap sigmoidectomy 04/21/23: open [...] 1:41 PM CDT): Relevant surgical history: (all [facility]) 06/05/22: lap sigmoidectomy 04/21/23: open [...] IV cefe/flagyl, CT AP with IV and ND contrast to rule out missed colon injury, LEDs and lower extremity arterial doppler 12/11 LE US studies unrevealing. CT A/P with ND contrast pending. No nausea, continue IV antibiotics. [...] check. She would like to follow with [facility] IR and General surgery. IR drain [...] EGS and IR follow up on 12/31. [facility] Imagin/23 LE Arterial Dopplers - bilateral [...] Complete spontaneous w/o complication;Recorded Elsewhere: No Location: [facility] Source: EHR Chronic: N Practice ID: [id number] Billable Time: 04:30:00 PM Pelvic and perineal pain 01/12/2018 Overview (09/30/2024): Pelvic pain;Recorded Elsewhere: No Location: [facility] Source: EHR Chronic: N Practice ID: [id number] Billable Time: 11:00:00 AM Acute vaginitis 01/01/2016 Overview (09/30/2024): Acute vulvovaginitis;Recorded Elsewhere: No Location: [facility] Source: EHR Chronic: N Practice ID: [id number] Billable Time: 11:30:00 AM Female genital symptoms 11/02/2013 Overview (09/30/2024): Unspecified symptom associated with female genital organs;Recorded Elsewhere: No Location: [facility] Source: EHR Chronic: N Practice ID: [id number] Billable Time: 08:30:00 AM Headache 11/02/2013 Overview (09/30/2024): Headache;Recorded Elsewhere: No Location: [facility] Source: EHR Chronic: N Practice ID: [id number] Billable Time: 08:30:00 AM Hematochezia 11/02/2013 Overview (09/30/2024): Blood in stool;Recorded Elsewhere: No Location: [facility] Source: EHR Chronic: N Practice ID: [id number] Billable Time: 08:30:00 AM Sleep apnea 06/17/2012 Nontoxic single thyroid nodule 06/17/2012 Hirsutism 06/17/2012 Abdominal pain 12/17/2011 Overview (09/30/2024): Abdominal pain, other specified site;Recorded Elsewhere: No Location: [facility] Source: EHR Chronic: N Practice ID: [id number] Billable Time: 03:00:00 PM Goiter 09/11/2011 Overview (09/30/2024): Goiter, unspecified;Recorded Elsewhere: No Location: [facility] Source: EHR Chronic: N Practice ID: [id number] Billable Time: 09:15:00 AM Increased frequency of urination 09/11/2011 Overview (09/30/2024): Urinary frequency;Recorded Elsewhere: No Location: [facility] Source: EHR Chronic: N Practice ID: [...] updated 12/12/23) Primary Care Provider: Rossana Ireland, CANDLE MOLDER Placement or Home Health Company: N/A Current [...] Encounters Date Type Department Care Team Description 06/29/2025 Documentation [facility] [address] [facility] [address] [place] [address] [place] [address] Joyce Zamora CMA Follow-up 06/29/2025 Documentation [facility] [address] [facility] [address] [place] [address] [place] [address] Joyce Zamora CMA 06/28/2025 Telephone [facility] [place] [address] [place] [address] Jess Alston Bianca AUTHORIZATION 06/02/2025 Documentation [facility] [address] [facility] [address] [place] [address] [place] [address] Joyce Zamora CMA 06/02/2025 Orders Only [facility] [address] [facility] [address]th [place] [address] [place] [address] Attila Foster MD Infected hernioplasty mesh, subsequent encounter (Primary Dx); Ventral hernia with obstruction but no gangrene 06/02/2025 Telephone [facility] [address] [place] [address] [place] [address] Irma Little 05/19/2025 Documentation [facility] [place] [address] [place] [address] Joyce Zamora CMA image request 05/19/[facility] [address] [facility] [address] [place] [address] [place] [address] Joyce Zamora CMA 05/12/2025 12:22 PM CDT - 05/12/2025 11:59 PM CDT Hospital Encounter [facility] [address] [place] [address] Discharge Disposition: Discharge to home or self care 05/03/20[facility] [address] [facility] [address]th [place] [address] [place] [address] Joyce Zamora CMA Follow-up 04/27/2025 3:00 PM CDT [facility] [address] [facility] [address]th [place] [address] [place] [address] Attila Foster MD Infected hernioplasty mesh, subsequent encounter (Primary Dx); Ventral hernia with obstruction but no gangrene; Obesity with body mass index 30 or greater; Pain of upper abdomen from Last 3 Months Immunizations Immunization Administration [...] materials from doctor or pharmacy Never 12/21/2023 [facility] Utilities Answer Date Recorded In the past 12 months has e [employer], gas, oil, or water [employer] threatened to shut off services in your [...] Date Recorded PHQ-2 Total Score 1 12/26/2023 [facility] [place] of Occupat ional Health - Occupational Stress [...] any time in the past 12 m [facility], were you homeless or living in a nursing home (including now)? No 12/26/2023 Personal Safety Answer Date Recorded Have you ever been in or are you currently in a harmful physical or emotional relationship or is someone making you feel afraid or unsafe? 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 There will be no report generated by a [facility] Radiologist. Narrative [facility] - 05/12/2025 12:22 PM CDT EXAMINATION: Images For Reference Purposes Only us Attila Jose Foster MD IMG CT PROCEDURES Fi nal Result [facility] from Last 3 Months Insurance [facility] H[facility]/PPO Address: [address] [address] [place] [address] [employer] [facility] [employer] [facility] H[facility]/PPO Address: [address] [address] [place] [address] [employer] [facility] H[facility]/PPO Address: [address] [address] [facility] H[facility]/PPO Address: [address] [address] [facility] H[facility]/PPO Address: [facility] [address] [place] [address] Advance Directives For more information, please contact: [phone] * Full Code (Latest Code Status on [...] 9:24 PM 12/19/2023 10:20 PM Care Teams Supervisor Hanging And Trimming Relationship Specialty Start Date End Date Diomedes Seals MD [address] [place] [address] PCP - General Family Medicine 12/28/23
--- OUTSIDE RECORDS SUMMARY | 2025-07-07 10:13 | XMS_ITS | Clinical Summary ---
Author Organization [facility] Address [address] [facility] [place] [address] Care Team Providers Care Diffusion Furnace Operator Name Role Phone Diomedes Seals MD Primary Care Provider [phone] Source Comments [facility],non-owned Affiliates and Associated Physician Practices is amultiple site organization consisting of ambulatory clinics and hospital sitesin [place], [place], [place] and [place]. This disclosure is being madepursuant to the Care Everywhere program and may not contain all information available regarding this patient. Last updated 18.[facility] Allergies Active Allergy Reactions Criticality Noted Date Comments Contrast-Iodinated Agents For Ct/Other Other High 06/17/2012 Sneezing., Sneezing., Sneezing. Gluten Meal GI Discomfort,Other High 12/19/2023 pain Irbesartan Other High 01/12/2024 Hair loss No Known Food Allergy Other Low 06/17/2012 No known food allergy., No known food allergy., No known food allergy. Penicillins Rash High 12/10/2023 Seasonal Other Low 06/17/2012 Sinus problems., Sinus problems., Sinus problems. Shellfish Allergy Rash High 12/26/2023 Wheat Bran GI Discomfort High 05/23/2025 Medications * Be aware that medications may not be up to date on this document. Alwaysverify current medications with the patient. acetaminophen (Tylenol) 500 MG tablet THREE TIMES A DAY as needed for irene 02/04/2025 Active amLODIPine (Norvasc) 5 MG tablet DAILY 11/08/2024 Active cetirizine (ZyrTEC Allergy) 10 MG gel capsule Take 1 (one) capsule by mouth once daily as needed Active DULoxetine (Cymbalta) 60 MG capsule Take 1 (one) capsule by mouth once daily Active lidocaine (Lidoderm) 5 % patch DAILY 05/19/2025 Active pantoprazole EC (Protonix) 40 MG tablet TWICE A DAY 03/08/2024 Active Rezdiffra 100 MG TABS 05/16/2025 Active sulfamethoxazol e-trimethoprim (Bactrim DS; Septra DS) 800-160 MG tablet Take 1 (one) tablet by mouth 2 times daily 04/28/2025 06/27/20 Active Problems Problem Noted Date Diagnosed Date Primary fibromyalgia syndrome 05/30/2025 Assessment & Plan (05/30/2025 2:03 PM JORDAN WORKER): I discussed the approach to the clinical diagnosis of a fibromyalgia syndrome as a cause for chronic musculoskeletal pain and likely exacerbation of symptoms following last years complicated abdominal surgery (anticipated upcoming surgery needed to remove infected intra-abdominal hernia repair mesh). I would recommend a additional dose of duloxetine 30 mg in AM added to 60 mg bedtime dose. May be a good candidate to try low dose compounded naltrexone but would wait at least until following next anticipated upcoming surgery (and possible need for short term opiate post-operative pain medication). Refer to literature from Mihir Fontana MD, [facility], [facility], on the use of compounded low dose naltrexone in the treatment of fibromyalgia related pain ( A remote pilot operator study found that low-dose naltrexone reduced pain more than placebo (29 versus 18 percent). Low-dose naltrexone was also associated with improved general satisfaction with life and with improved mood but was not associated with improved fatigue or sleep). Check with local area compounding pharmacy ([facility] per month prescription usually $25-35 and insurance does not cover the cost of most compounded prescriptions. Mail order compounding pharmacies including [facility] in [place] ([phone]) may also be a lower cost service to provide this type of compounded low dose naltrexone (3-6 mg bedtime dosing). I do not provide long-term care for the treatment of fibromyalgia and I have suggested that Alis Camposlida follow-up with her primary care provider/physician for any additional needed long-term treatment approach recommendations that may be of benefit for relief of symptoms related to this non-inflammatory hypersensitivity pain disorder. I strongly encourage the avoidance of opiate analgesic medication (narcotics), as well as benzodiazepines, in the treatment of fibromyalgia associated pain given their potential risk for serious side effects and/or dependency issues and opiate induced hyperalgesia (use of terminal block assembler opiate/narcotic actually causing more pain rather than less) that can be associated with such use. Additionally, the use of gabapentin or other available FDA approved medications for the treatment of fibromyalgia including Lyrica (pregabalin) or Savella could be considered for future symptomatic pain treatment if not previously tried and without contraindication to use but will defer terminal block assembler treatment management decisions to her primary care provider/physician for future treatment consideration of this type of a non-inflammatory chronic pain syndrome. I would also strongly encourage non pharmacologic interventions, including working with a pain psychologist trained in cognitive behavioral therapy such is relaxation techniques, biofeedback and visual imagery that can also be helpful, as well as aerobic conditioning exercise in the treatment of this type of non-inflammatory chronic pain condition. Alis Hernadnez was provided additional written information regarding fibromyalgia for further educational information. Fibromyalgia is a painful condition that is not completely understood by medical experts. The cause of fibromyalgia is not known. A person may feel tired and ache all over. It causes tender spots on the body that hurt only when pressed upon. A patient may have trouble sleeping, as well as other symptoms. These problems can upset work and home life. Symptoms tend to come and go, although they may never go away completely. Fibromyalgia does not harm the muscles, joints or organs or cause any permanent deformity or disability in the body. Fibromyalgia syndrome is characterized by generalized noninflammatory pain and is associated with long-standing pain that may come and go and be variable or at time persistently contant. The pain may be located in the soft tissues including tendons or muscles or joints. The pain can occur in any of the extremities and also be felt along the spine or torso. This is the reason some people feel that they have arthritis. Other unusual symptoms that may suggest an underlying neurologic disorder have also been described in patients with fibromyalgia including numbness and tingling type sensations and shooting pains. Patients often describe fatigue and may awaken with non restorative sleep quality. The condition can occur in men or women in any age but is most common in women routine the ages of 20 in 50. There is no specific test used that can confirm the diagnosis of fibromyalgia and is considered a diagnosis of exclusion where by other conditions need to be excluded and this may or may not require additional test to be performed. The current nature of fibromyalgia seems to suggest that this syndrome represents a disorder of increased sensitivity in pain perception or so-called central pain amplification. Unfortunately, the exact cause of this disorder still remains elusive and unknown and limits the treatment to symptom relief without any known cure at this time. Elevated sedimentation rate measurement 05/30/20 25 Assessment & Plan (05/30/2025 2:03 PM JORDAN WORKER): 04/13/2025 sed rate slightly elevated at 48 (although with normal CRP) but could be elevated due to intraabdominal mess infection (awaiting surgical removal). No current findings that would suggest a systemic inflammatory form of arthritis (refer to comments regarding fibromyalgia related pain). Sleep apnea 06/17/2012 Nontoxic single thyroid nodule 06/17/2012 Hirsutism 06/17/2012 Encounters Date Type Department Care Team Description 05/30/2025 1:20 PM JORDAN WORKER Office Visit [facility] - Rheumatology [address] [place] [address], [address] [place] [address] Vincent Hansen, Primary fibromyalgia syndrome (Primary Dx); Elevated sedimentation rate measurement; Polyarthralgia; Elevated sedimentation rate 04/18/2025 Transcribe Orders [facility] - Rheumatology [address] [place] [address], [address] [place] [address] [phone] Group, [facility] Polyarthralgia from Last 3 Months Immunizations Immunization [...] Years Used Date Smoking Tobacco: Former Cigarettes 0 Q uit: 09/17/2006 Smokeless Tobacco: Never Alcohol Use Standard Drinks/Week Comments No 0 (1 standard drink = 0.6 oz pur e alcohol) PHQ-2 Answer Date Recorded Patient Health Questionnaire-2 Score 2 05/30/2025 Comments Unknown Sex and Gender Information Value Date Recorded Sex Assigned at Not on file Legal Sex Female 6:54 PM JORDAN WORKER Gender Identity Female 05/12/2025 7:30 AM CDT Sexual Orientation Not on file Last Filed Vital Signs Vital Sign Reading Time Taken Comments Blood Pressure 130/84 05/30/2025 1:20 PM JORDAN WORKER Pulse 108 05/30/2025 1:20 PM JORDAN WORKER Temperature 36.1 C (97 F) 05/30/2025 1:20 PM JORDAN WORKER Respiratory Rate 16 05/30/2025 1:20 PM JORDAN WORKER Oxygen Saturation 97% 05/30/2025 1:20 PM JORDAN WORKER Inhaled Oxygen Concentration - - Weight 113.4 kg (250 lb) 05/30/2025 1:20 PM JORDAN WORKER Height - - Body Mass Index - - Plan of Treatment Health Maintenance Due Date [...] 10/01/2006 LIPID TESTING 09/17/2016 09/18/2011 COVID-19 VACCINE (3 - 2024-2 6 season) 2025 11/25/2020, 11/03/2020 INFLUENZA VACCINE (#1) 2025 06/12/2012 ZOSTER VACCINE (1 of 2) 10/01/2029 DEPRESSION SCREENING Completed 05/30/2025 HIB VACCINE Aged Out No longer eligi [...] Procedure Name Priority Date/Time Associated Diagnosis Comments AMB REFERRAL TO RHEUMATOLOGY Routine 05/30/2025 2:15 PM JORDAN WORKER Polyarthralgia Elevated sedimentation rate LIPID PROFILE Routine 09/18/2011 8:02 AM JORDAN WORKER from Last 3 Months or Most Recently Relevant to Health Maintenance Results * AMB REFERRAL TO RHEUMATOLOGY (05/30/2025 2:15 PM JORDAN WORKER) [facility] MOTORCYCLE DELIVERER-EXCELLENCE SPECIALIST OUTPATIENT REFERRAL S Final Result * (ABNORMAL) LIPID PROFILE (09/18/2011 8:02 AM JORDAN WORKER) [facility] Cholesterol Total 176 125 - 200 mg/dL [facility] Comment: Test Performed at: [facility] [address] [place] [address] BINA LEVINE DO HDL 32(L) > OR [...] Venous blood specimen (specimen) 09/18/2011 8:02 AM JORDAN WORKER 09/18/2011 8:03 AM JORDAN WORKER us Joe Gonzalez MD LAB - CHEMISTRY ORDERABLES Fin al Result [facility] [id number] from Last 3 Months or Most Recently Relevant to Health Maintenance Insurance CARE * Guarantor: ALIS HERNANDEZ Account Type Relation to Patient Date of Phone Billing Address Personal/Family [address] [place] [address] * Guarantor: ALIS HERNANDEZ Account Type Relation to Patient Date of Phone Billing Address Personal/Family [address] [place], [place] [id number] * Guarantor: ALIS HERNANDEZ Account Type Relation to Patient Date of Phone Billing Address Personal/Family [address] [place] [address] * Guarantor: ALIS HERNANDEZ Account Type Relation to Patient Date of Phone Billing Address Personal/Family Spouse Care Teams Diffusion Furnace Operator Relationship Specialty Start Date End Date Diomedes Seals MD [address] [place] [id number] PCP - General 06/20/22
--- OUTSIDE RECORDS SUMMARY | 2025-07-07 10:13 | XMS_ITS | Data Portability ---
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 Patient Instructions Encounter Date Encounter Id Patient Instructions Last Modified By Organization Details Last Modified Time 04/23/2022 [id number] Exercise advised Low cholesterol diet advised Low sodium diet advised. matilde Not available 04/23/2022 15:45:40 07/30/2022 [id number] Weight loss 20 pounds Exercise advised Low cholesterol diet advised Low sodium diet advised. [email or web address] Not available 07/30/2022 14:58:04 01/28/2023 [id number] Exercise advised Low cholesterol diet advised Low sodium diet advised. eyassin Not available 01/28/2023 14:16:47 02/11/2023 [id number] Exercise advised Low cholesterol diet advised Low sodium diet advised. [email or web address] Not available 02/11/2023 09:57:16 05/06/2023 [id number] Exercise advised Low cholesterol diet advised Low [...] 16:54:03 Body mass index 30+ - obesity 657723680 Active 2021 Grijalva Mesto [place], [place] - [facility] 2 16:54:12 Depressive disorder 54469163 Active 2021 G[place] [facility] 2 16:54:20 Chronic back pain 882598625 Active 2021 Grij[place] [facility] 2 15:17:56 Chronic headache disorder 560581568 Active 2021 Grij[place] [facility] 2 15:18:29 Diverticuli tis 648788534 Active 2021 Grijal[place] [facility] 3 02:03:29 Diverticulo sis of colon 421607563 Active 2021 Grijal[place] [facility] 2 16:55:20 Disorder of gallbladder 14145157 Active 2021 Grijal[place] [facility] 2 16:55:49 Gastroesoph ageal reflux disease 296660163 Active 2021 Grijal[place] [facility] 2 16:55:56 Hemorrhoids 75695318 Active 2021 Grij[place] [facility] 2 16:56:09 Essential hypertensio n 73364002 Active 2021 Grij[place] [facility] 2 16:56:19 Cyst of ovary 57449823 Active 2021 Grij[place] [facility] 2 16:56:31 Seizure 38207070 Active 2021 Grij[place] [facility] 2 16:56:39 Obstructive sleep apnea syndrome 98077486 Active 2021 Grijal[place] [facility] 2 15:18:04 Dyslipidemi a 482873301 Active 2022 Grijal[place] [facility] 3 02:03:41 Iliac vein compression syndrome 813583436 Active 2022 Grijal[place] [facility] 3 02:04:15 Problem Notes None recorded. Procedures Surgical History Date Name Laterality Status Provider Name and Address Organization Details Recorded Time [facility] [place] [facility] 03/15/2022 16:57:51 endoscopy completed Grijalva [facility] 03/15/2022 16:58:00 stripping of vein completed Grijalva [facility] [place] - [facility] 03/15/2022 16:58:18 Appendectomy completed [facility] [place] - [facility] 03/15/2022 16:58:26 Cholecystectomy completed [place] [facility] [place] [facility] 03/15/2022 16:58:57 section completed [facility] [place] - [facility] 03/15/2022 16:59:10 Imaging Results None recorded. Procedure Notes None recorded. Medical Equipment None Reported. Allergies Allergen ID Allergen Name Allergen Category Reaction Reaction Severity Criticality Documentation Date Start Date Code Code System Note Provider Name and Address Organization Details Recorded Time 65118 Product containin g penicilli n (product) medicatio n Not available Not available Not available 03/15/2022 96095 8001 SNOMED Grijalva [place] - [facility] 2 17:04:54 12918 shrimp allergeni c extract food Not available Not available Not available 03/15/2022 60194 2 RxNorm Grijal[place] - [facility] 2 17:05:03 83295 wheat preparati on food,medi cation Not available Not available Not available 03/15/2022 51714 52 RxNorm Rudi [place] null, [place] - [facility] 2 17:05:11 66062 Iodinated contrast media (substanc e) medicatio n Not available Not available Not available 03/15/2022 71927 2004 SNOMED Rudi [place] - [facility] 2 17:05:46 75683 irbesarta n medicatio n Not available Not available Not available 03/15/2022 69750 RxNorm Rudi [place], [place] - [facility] [...] weight Heart rate Respiratory rate Oxygen saturation Systolic And Diastolic Provider Name and Address Organization Details Last Updated DateTime 3 172.72 cm 32.4 kg/m2 57782.1 7 g 92 /min 16 /min 99 % 118/84 mm[Hg] Felipe Zamora [facility] 3 14:37:17 Date Recorded Body height Body mass index (BMI) Body weight Heart rate Oxygen saturation Systolic And Diastolic Provider Name and Address Organization Details Last Updated DateTime 3 172.72 cm 35.3 kg/m2 776839. 07 g 71 /min 91 % 120/80 mm[Hg] RONALD PRUITT [facility] 3 13:24:20 Date Recorded Body height Body mass index (BMI) Body weight Heart rate Respiratory rate Oxygen saturation Systolic And Diastolic Provider Name and Address Organization Details Last Updated DateTime 3 172.72 cm 35.4 kg/m2 408508. 02 g 102 /min 18 /min 97 % 128/84 mm[Hg] Felipe Zamora [facility] 3 09:39:19 Date Recorded Body height Body mass index (BMI) Body weight Oxygen saturation Heart rate Systolic And Diastolic Provider Name and Address Organization Details Last Updated DateTime 2 172.72 cm 33.8 kg/m2 928488. 51 g 96 % 81 /min 148/102 mm[Hg] RONALD PRUITT [facility] 2 15:08:57 Date Recorded Body height Body mass index (BMI) Body weight Heart rate Oxygen saturation Systolic And Diastolic Provider Name and Address Organization Details Last Updated DateTime 3 172.72 cm 35.7 kg/m2 083838. 21 g 97 /min 95 % 146/90 mm[Hg] Lela River [facility] 3 16:16:04 Social History Question Answer Notes LastModified by [employer] Details LastModified Time Tobacco Smoking Status Current Every Day Smoker Rudi hua [facility] 03/15/2022 17:01:02 What Is Your Level Of Caffeine Consumption? Occasional Information not available 03/19/2022 What Type Of Diet Are You Following? REGULAR Information not available 03/19/2022 How Much Tobacco Do You Smoke? 1 PPD Information not available 03/15/2022 How Many Years Have You Smoked Tobacco? 7 Information not available 03/15/2022 Sex: Unknown Functional Status Question Answer Note LastModified by [employer] Details LastModified Time Do you use any [...] ICD10 Code Diagnosis IMO Codes Diagnosis Note [id number] Phani Vega MD [place] [facility] [place] [address] 03/19/2022 15:00:17 03/19/2022 16:01:07 Varicose veins of lower extremity 56623496 I83.891 Benign ess ential hypertension 0485836 I10 well controlled todayconti nue losartan 100 mg daily Iliac vein compression syndrome 424248640 I87.1 will do venous reflex ultrasound 19183 Phani Vega MD [place] [facility] [place] [address] 04/23/2022 14:30:53 04/23/2022 15:55:13 Varicose veins of lower extremity 98408007 I83.891 significan t reflex disease need venous angiogram Benign ess ential hypertension 8434935 I10 well controlled todayconti nue losartan 100 mg daily Iliac vein compression syndrome 425690613 I87.1 will do venous reflex ultrasound after stress echo Essential hypertension 59591743 I10 elevated today she need cpap Obstructiv e sleep apnea syndrome 16271814 G47.33 repeat study Dyspnea on exertion 6084 5006 R06.09 Treadmill Myoview Stress test, has high [place] Risk score. Has Known CAD, or CAD risk equivalent . To look for any ischemia. Pre-surger y evaluation 722948859 Z01.818 Treadmill Myoview Stress test, has high [place] Risk score. Has Known CAD, or CAD risk equivalent . To look for any ischemia. Dyslipidemia 142293933 E 78.5 LDL is at 119 she is not taking 95594 Phani Vega MD [place] [facility] [place] [address] 07/30/2022 14:25:03 07/30/2022 15:00:22 Varicose veins of lower extremity 55046485 I83.891 significan t reflex disease need venous angiogram Benign ess ential hypertension 2953271 I10 well controlled todayconti nue losartan 100 mg daily Iliac vein compression syndrome 894728427 I87.1 will do venous reflex ultrasound after stress echo Essential hypertension 10646694 I10 elevated today she need cpap Obstructiv e sleep apnea syndrome 40507466 G47.33 repeat study Dyspnea on exertion 6084 5006 R06.09 Treadmill Myoview Stress test, has high [place] Risk score. Has Known CAD, or CAD risk equivalent . To look for any ischemia. Dyslipidemia 317333896 E 78.5 LDL is at 119 she is not taking meds 83545 Phani Vega MD [place] [facility] [address] [place] [address] 01/28/2023 12:44:13 01/28/2023 14:18:38 Varicose veins of lower extremity 38643099 I83.891 resolved Benign ess ential hypertension 5707048 I10 high BP todayshe discontinu e losartan 100 mg daily as she thought her BP is well controllSh e is on amlodipin 5 mg dailyLosar flores 50 mg daily Iliac vein compression syndrome 577759147 I87.1 will do venous reflex ultrasound after stress echo Essential hypertension 86364061 I10 elevated today she need cpap Obstructiv e sleep apnea syndrome 27247114 G47.33 repeat study Dyspnea on exertion 6084 5006 R06.09 Treadmill Myoview Stress test, has high [place] Risk score. Has Known CAD, or CAD risk equivalent . To look for any ischemia. Dyslipidemia 510435052 E 78.5 LDL is at 136 she is not taking meds 09/12 33961 Phani Vega MD [place] [facility] [address] [place] [address] 02/11/2023 09:33:56 02/11/2023 10:16:13 Varicose veins of lower extremity 64141196 I83.891 resolved Benign ess ential hypertension 3797382 I10 well controlled todayprevi ously she discontinu e losartan 100 mg daily as she thought her BP is well controllSh e is on amlodipin 5 mg daily and Losartan 50 mg daily Iliac vein compression syndrome 321768453 I87.1 well controlled and has no problem currently Essential hypertension 84633341 I10 well controlled today Obstructiv e sleep apnea syndrome 63895627 G47.33 repeat study Dyspnea on exertion 6084 5006 R06.09 Negative stress echo. Mild exercise impairment . Dyslipidemia 420590465 E 78.5 LDL is at 136 she is not taking meds 09/12wi repeat in 3 months Tachycardia 7146359 R00. 0 will consider adding metoprolol next visit if she still tachyproba diya tachy due to abdominal dis comfortabl e after her diverticul itis surgery , she is going for abdominal ultrasound tomorrow 51145 Phani Vega MD [place] [facility] [address] [place] [address] 05/06/2023 16:04:19 05/06/2023 16:48:03 Varicose veins of lower extremity 98622578 I83.891 resolved Benign ess ential hypertension 5732108 I10 well controlled todayprevi ously she discontinu e losartan 100 mg daily as she thought her BP is well controllSh e is on amlodipin 5 mg daily and Losartan 50 mg daily Iliac vein compression syndrome 231390593 I87.1 well controlled and has no problem currently Essential hypertension 52869095 I10 well controlled today Obstructiv e sleep apnea syndrome 32711306 G47.33 repeat study Dyspnea on exertion 6084 5006 R06.09 Negative stress echo. Mild exercise impairment . Dyslipidemia 234407753 E 78.5 LDL is at 136 she is not taking meds 09/12will repeat in 3 months Tachycardia 0176100 R00. 0 will consider adding metoprolol next visit if she still tachyproba diya tachy due to abdominal dis comfortabl e after her diverticul itis surgery , she is going for abdominal ultrasound tomorrow Pulmonary embolism 86468 003 I26.99 On Eliquis 5 mg bidJay get her CT [place] Follow up [facility] Concerns Section Related Observation LastModified by Organization Detai ls LastModified Time None Recorded Concern Status LastModified by Organization Details LastModified Time None Recorded Advance Directives Directive None Recorded Payers Insurance Date Sequence Insurance Name Policy Number Policy Jurado Covered Member ID Jurado Member ID Guarantor Name 01/26/2025 1 [facility] [id number] Herrera Hernandez [id number] Devi Hernandez 05/03/2023 2 [place] [employer] Devi Hernandez [id number] Devi Hernandez Notes Date Note Type Note [...] has had tow previous vein stripping surgeries 9687-9954.She can not bare aliza on her right leg for the last 8 months. She is been vaping for the last 3 months.Her dad has bypass surgery when he was 75. ALEX hua [place] - [facility] 04/23/2022 15:45:46 07/30/2022 [...] has had tow previous vein stripping surgeries 3544-7980. She can not bare aliza on her right leg for the last 8 months. She is been vaping for the last 3 months. Phani Vega MD [address] [place], [address], [facility] - [facility] 07/30/2022 14:59:08 01/28/2023 [...] has had tow previous vein stripping surgeries 6101-5229. She can not bare aliza on her [...] has had tow previous vein stripping surgeries 5922-1926. She can not bare aliza on her right leg for the last 8 months. She is been vaping for the last 3 months. Phani Vega MD [address] [place], [address], [facility] - [facility] 02/11/2023 09:59:05 05/06/2023 text/html 05/06/23CC : Cardiac follow upDevi HERNANDEZ is a 42 years-old Female with h/o Hypertension, celiac disease , depression ,Obstructive sleep apnea and GERD, celiac , and diverticulitis is here for 3 month follow up. She was last seen in the clinic on 02/11/23, since then zoltanShe denies ER visits and hospitalizations since she was last seen. Today reports:pt previously had hernia surgery of 04/21/2023 [facility] - pt having chest pain but refuses ECG . after surgery at [facility] had PE. pt feels thats the [...] has had tow previous vein stripping surgeries 5592-6981. She can not bare aliza on her right leg for the last 8 months. She is been vaping for the last 3 months. Phani Vega MD [address] [place], [address], [facility] - [facility] 05/06/2023 16:41:39 OBGyn Episode No OBEpisode recorded.
== END 2025-07-07 09:24 | disposition home or self-care (01) ==
PROVIDERS: PCP Family Medicine
DX: K43.9 Ventral hernia without obstruction or gangrene (principal); K46.0 Unspecified abdominal hernia with obstruction, without gangrene; M62.08 Separation of muscle (nontraumatic), other site; R06.9 Unspecified abnormalities of breathing
CPT/HCPCS: 74176